=== PATIENT | male | born 1940 | race Caucasian/White ===

== ENCOUNTER 2020-08-13 08:04 | Observation (INO) | payer OTHER ==
--- OUTSIDE RECORDS SUMMARY | 2020-08-13 08:17 | XMS REPORT | Summary of Care ---
:1940 Author Organization [facility] Address [address] [place] [address] Care Team Providers Name Role Phone MD Louis Primary Care Provider Reason for Visit Reason Comments Refill Request Encounter Details Date Type Department Care Team Description 05/22/2020 Refill [facility] Family Medicine Luis Wilkerson MD Refill Request - [place] [address] [facility] [place] [address] [place] [address] [phone] Allergies Active Allergy Reactions Severity Noted Date Comments Adhesive Rash 07/23/2015 Codeine Unknown - See comments 07/23/2015 Gabapentin Shortness of Breath Medium 06/11/2018 Sulfamethoxazole Hives, Rash Medium 07/23/2015 documented as of this encounter (statuses as of 05/25/2020) Medications Medication Sig Dispensed Refills Start Date End Date Status DABIGATRAN ETEXILATE Take by mouth. 0 Active MESYLATE (PRADAXA ORAL) metoprolol tartrate Take 1 tablet by 90 tablet 1 09/06/2016 Active (LOPRESSOR) 100 mg mouth daily. tablet Additional Information Patient taking differently: 100 mg Oral BID, Reported on 10/18/2017 1:57 PM benzonatate (TESSALON Take 1 capsule 20 capsule 0 10/18/2017 Active PERLES) 100 mg by mouth 3 capsuleIndications: (three) times Bacterial URI daily. baclofen 10 mg tablet Take 10 mg by 0 Active mouth 2 (two) times daily. FUROSEMIDE ORAL Take 10 mg by 0 Active mouth daily. B INFANTIS/B ANI/B HAMLET/B Take by mouth. 0 Active BIFID (PROBIOTIC 4X ORAL) GLUCOSAM/GLUC Take by mouth. 0 Active FRAGA/IB-KBN-V-GLUC (GLUCOSAMINE COMPLEX ORAL) cimetidine (TAGAMET HB) Take 200 mg by 0 Active 200 mg tablet mouth 4 (four) times daily. digoxin 125 mcg tablet Take by mouth 2 0 Active (two) times daily. doxycycline 100 mg tablet Take 1 tablet by 20 tablet 0 018 Active mouth 2 (two) times daily. TRAMADOL 50 mg tablet TAKE 1 TABLET BY 30 tablet 0 09/17/2018 Active MOUTH EVERY 6 HOURS NEEDED FOR PAIN BD ULTRA FINE LANCETS 33 Use as directed 50 Each 2 9 Active gauge MiscIndications: for once a day Type 2 diabetes mellitus insulin with complication, injections. unspecified whether usp insulin use Insulin [place]myer, Use as directed, 100 Each 1 01/17/2019 Active Disposable, (PEN NEEDLE) once daily with 31 gauge x 5/16" Ndle Victoza, DX:E11.9 atorvastatin 10 mg Take 1 tablet by 30 tablet 5 06/02/2019 Active tabletIndications: mouth at Hyperlipidemia, bedtime. unspecified hyperlipidemia type ACCU-CHEK BASHIR PLUS TEST USE 2 TIMES A 150 Strip 3 06/19/2019 Active STRP strip DAY to monitor blood glucose for ICD code of E11.9 ACCU-CHEK BASHIR CONNECT Use as directed 1 Each 0 09/10/2019 Active METER Misc for twice a day blood glucose monitoring for ICD E11.9 Type 2 VENTOLIN HFA 90 TAKE 2 PUFFS BY 18 Inhaler 2 03/10/2020 Active mcg/actuation inhaler MOUTH EVERY 6 HOURS NEEDED FOR WHEEZE OR FOR SHORTNESS OF BREATH liraglutide (VICTOZA INJECT 1.8 MG 27 Syringe 0 04/19/2020 Active 3-CLARA) 0.6 mg/0.1 mL (18 UNDER THE SKIN mg/3 mL) injection ONCE DAILY EVERY MORNING FEBUXOSTAT 40 mg tablet TAKE 1 TABLET BY 90 tablet 0 0 Active MOUTH EVERY DAY IN THE MORNING GLIMEPIRIDE 1 mg TAKE 1 TABLET BY 30 tablet 1 05/07/2020 Active tabletIndications: Type 2 MOUTH EVERY DAY diabetes mellitus without complication, without long-term current use of insulin ATORVASTATIN 40 mg TAKE 1 TABLET BY 90 tablet 0 05/25/2020 Active tabletIndications: MOUTH EVERYDAY Peripheral vascular AT BEDTIME disease, unspecified, Neuropathic pain ATORVASTATIN 40 mg TAKE 1 TABLET BY 90 tablet 0 02/25/2020 tabletIndications: MOUTH EVERYDAY 2019 Peripheral vascular AT BEDTIME disease, unspecified, Neuropathic pain documented as of this encounter (statuses as of 05/25/2020) Active Problems Problem Noted Date Critical lower limb ischemia 03/05/2018 Pain of right lower extremity 02/26/2018 Overview: Added automatically from request for iron quick [id number] Elevated brain natriuretic peptide (BNP) level 017 Elevated liver enzymes 11/13/2016 Hyperlipidemia 11/18/2015 Essential hypertension 11/18/2015 IBS (irritable bowel syndrome) 11/18/2015 Hyperplasia of prostate 11/18/2015 Diabetes 11/18/2015 Atrial fibrillation 11/18/2015 documented as of this encounter (statuses as of 05/25/2020) Immunizations Name Administration Dates Next Due Influenza Virus Vaccine 05/30/2019 TDAP 10/23/2016 Zoster(Zostavax)(Shingles) 05/24/2019 documented as of this encounter Social History Tobacco Use Types Packs/Day Years Used Date Former Smoker Cigarettes 2 15 Quit: 11/18/18 90 Smokeless Tobacco: Never Used Comments: unsure how many years he smoke d Alcohol Use Drinks/Week oz/Week Comments Yes 5 Glasses of wine 5.0 Sex Assigned at Date Recorded Not on file documented as of this encounter Last Filed Vital Signs Not on filedocumented in this encounter Plan of Treatment Health Maintenance Due Date Last Done Comments EYE EXAM 02/26/1950 URINE MICROALBUMIN 02/26/1950 Medicare Wellness Visit 02/26/2005 PNEUMOCOCCAL VACCINES 65+ (1 of 1 02/26/2005 - PPSV23) Zoster Recombinant Vaccine 07/19/2019 05/24/2019 (SHINGRIX) (2 of 3) HgA1C 11/28/2019 05/28/2019, 04/30/2018, 02/07/2017, Additional history exists CREATININE (SERUM) 05/28/2020 05/28/2019, 01/31/2019, 04/30/2018, Additional history exists Depression Screening 05/28/2020 05/28/2019 FOOT EXAM 05/28/2020 05/28/2019, 05/28/2019 LDL-C 05/28/2020 05/28/2019, 10/23/2016, 02/29/2016 INFLUENZA VACCINE (#1) 2020 05/30/2019 DTaP,Tdap,and Td Vaccines (2 - Td) 10/23/2026 10/23/2016 documented as of this encounter Implants Implanted Type Area Strapper And Buffer Device Shelf Model / Identifier Expiration Serial / Lot Date [id number] Innova Vascular Stent STENT Right: [place] INNOVA VASCULAR / Implanted: Qty: 1 on 03/05/2018 by Ruy Goodman MD at [facility] [employer] H [id number] / [id number] Innova Vascular Stent STENT Right: [place] INNOVA VASCULAR / Implanted: Qty: 1 on 03/05/2018 by Ruy Goodman MD at [facility] [employer] H [id number] / [id number] Innova Vascular Stent STENT Right: [place] INNOVA VASCULAR / Implanted: Qty: 1 on 03/05/2018 by Ruy Goodman MD at [facility] [employer] H [id number] / [id number] Innova Vascular Stent STENT Right: [place] INNOVA VASCULAR / Implanted: Qty: 1 on 03/05/2018 by Ruy Goodman MD at [facility] [employer] H [id number] / [id number] Innova Vascular Stent STENT Right: [place] INNOVA VASCULAR / Implanted: Qty: 1 on 03/05/2018 by Ruy Goodman MD at [facility] [employer] H [id number] / [id number] Angio Se[employer] [id number] 0134 / Implanted: Qty: 1 on 03/05/2018 by Ruy Goodman MD at [facility] 0 / 0 Stent Innova Vascular Self Expanding Sys tem [id number] [employer] [place] Scientific #[id number] - S0 Right: [place] [id number] / Implanted: Qty: 1 on 03/05/2018 by Ruy Goodman MD at [facility] [employer] 0 / [id number] documented as of this encounter Results Not on filedocumented in this encounter Visit Diagnoses Diagnosis Peripheral vascular disease, unspecified Neuropathic pain Neuralgia, neuritis, and radiculitis, un specified documented in this encounter Insurance Payer Benefit Plan / Subscriber ID Effective Dates Phone Addre ss Type Group HUMANA - HUMANA [id number] 2013-[facility] MANAGED MEDICARE ERS t PPO MEDICARE documented as of this encounter
--- OUTSIDE RECORDS SUMMARY | 2020-08-13 08:17 | XMS REPORT | Summary of Care ---
:1940 Author Organization [facility] Address [address] [place] [address] Care Team Providers Name Role Phone MD Louis Primary Care Provider Reason for Visit Reason Comments Refill Request Encounter Details Date Type Department Care Team Description 06/01/2020 Refill [facility] Family Medicine Luis Wilkerson MD Refill Request - [place] [address] [facility] [place] [address] [place] [address] [phone] Allergies Active Allergy Reactions Severity Noted Date Comments Adhesive Rash 07/23/2015 Codeine Unknown - See comments 07/23/2015 Gabapentin Shortness of Breath Medium 06/11/2018 Sulfamethoxazole Hives, Rash Medium 07/23/2015 documented as of this encounter (statuses as of 06/01/2020) Medications Medication Sig Dispensed Refills Start Date End Date Status DABIGATRAN ETEXILATE Take by mouth. 0 Active MESYLATE (PRADAXA ORAL) metoprolol tartrate Take 1 tablet by 90 tablet 1 09/06/2016 Active (LOPRESSOR) 100 mg mouth daily. tablet Additional Information Patient taking differently: 100 mg Oral BID, Reported on 10/18/2017 1:57 PM benzonatate (TESSALON PERLES) Take 1 capsule by 20 capsule 0 0 10/18/2017 Active 100 mg capsuleIndications: mouth 3 (three) times Bacterial URI daily. baclofen 10 mg tablet Take 10 mg by mouth 2 0 Active (two) times daily. FUROSEMIDE ORAL Take 10 mg by mouth 0 Active daily. B INFANTIS/B ANI/B HAMLET/B BIFID Take by mouth. 0 Active (PROBIOTIC 4X ORAL) GLUCOSAM/GLUC FRAGA/YE-KYT-L-GLUC Take by mouth. 0 Active (GLUCOSAMINE COMPLEX ORAL) cimetidine (TAGAMET HB) 200 mg Take 200 mg by mouth 0 Active tablet 4 (four) times daily. digoxin 125 mcg tablet Take by mouth 2 0 Active (two) times daily. doxycycline 100 mg tablet Take 1 tablet by 20 tablet 0 018 Active mouth 2 (two) times daily. TRAMADOL 50 mg tablet TAKE 1 TABLET BY 30 tablet 0 09/17/2018 Active MOUTH EVERY 6 HOURS NEEDED FOR PAIN BD ULTRA FINE LANCETS 33 gauge Use as directed for 50 Each 2 01/16/2019 Active MiscIndications: Type 2 once a day insulin diabetes mellitus with injections. complication, unspecified whether detention insulin use Insulin [place], Disposable, Use as directed, once 100 Each 1 01/17/2019 Active (PEN NEEDLE) 31 gauge x 5/16" daily with Jose Willis DX:E11.9 atorvastatin 10 mg Take 1 tablet by 30 tablet 5 06/02/2019 Active tabletIndications: mouth at bedtime. Hyperlipidemia, unspecified hyperlipidemia type ACCU-CHEK BASHIR CONNECT METER Use as directed for 1 Each 0 09/10/2019 Active Misc twice a day blood glucose monitoring for ICD E11.9 Type 2 VENTOLIN HFA 90 mcg/actuation TAKE 2 PUFFS BY MOUTH 18 Inhaler 2 03/10/2020 Active inhaler EVERY 6 HOURS NEEDED FOR WHEEZE OR FOR SHORTNESS OF BREATH liraglutide (VICTOZA 3-CLARA) 0.6 INJECT 1.8 MG UNDER 27 Syringe 0 04/19/2020 Active mg/0.1 mL (18 mg/3 mL) THE SKIN ONCE DAILY injection EVERY MORNING FEBUXOSTAT 40 mg tablet TAKE 1 TABLET BY 90 tablet 0 0 Active MOUTH EVERY DAY IN THE MORNING GLIMEPIRIDE 1 mg TAKE 1 TABLET BY 30 tablet 1 05/07/2020 Active tabletIndications: Type 2 MOUTH EVERY DAY diabetes mellitus without complication, without long-term current use of insulin ATORVASTATIN 40 mg TAKE 1 TABLET BY 90 tablet 0 05/25/2020 Active tabletIndications: Peripheral MOUTH EVERYDAY AT vascular disease, unspecified, BEDTIME Neuropathic pain ACCU-CHEK BASHIR PLUS TEST STRP USE 2 TIMES A DAY TO 200 Strip 3 05/31/2020 Active strip MONITOR BLOOD GLUCOSE FOR ICD CODE OF E11.9 documented as of this encounter (statuses as of 06/01/2020) Active Problems Problem Noted Date Critical lower limb ischemia 03/05/2018 Pain of right lower extremity 02/26/2018 Overview: Added automatically from request for iron quick [id number] Elevated brain natriuretic peptide (BNP) level 017 Elevated liver enzymes 11/13/2016 Hyperlipidemia 11/18/2015 Essential hypertension 11/18/2015 IBS (irritable bowel syndrome) 11/18/2015 Hyperplasia of prostate 11/18/2015 Diabetes 11/18/2015 Atrial fibrillation 11/18/2015 documented as of this encounter (statuses as of 06/01/2020) Immunizations Name Administration Dates Next Due Influenza [...] Comments EYE EXAM 02/26/1950 URINE MICROALBUMIN 02/26/1950 Depression Screening 1952 Medicare Wellness Visit 02/26/2005 PNEUMOCOCCAL VACCINES 65+ (1 of 1 02/26/2005 - PPSV23) Zoster Recombinant Vaccine 07/19/2019 05/24/2019 (SHINGRIX) (2 of 3) HgA1C 11/28/2019 05/28/2019, 04/30/2018, 02/07/2017, Additional history exists CREATININE (SERUM) 05/28/2020 05/28/2019, 01/31/2019, 04/30/2018, Additional history exists FOOT EXAM 05/28/2020 05/28/2019, 05/28/2019 LDL-C 05/28/2020 05/28/2019, 10/23/2016, 02/29/2016 INFLUENZA VACCINE (#1) 2020 05/30/2019 DTaP,Tdap,and Td Vaccines (2 - Td) 10/23/2026 10/23/2016 documented as of this encounter Implants Implanted Type Area General Machine Operator Device Shelf Model / Identifier Expiration Serial / Lot Date [id number] Innova Vascular Stent STENT Right: [place] INNOVA VASCULAR / Implanted: Qty: 1 on 03/05/2018 by Ruy Goodman MD at [facility] [employer] H [id number] / [id number] Innova Vascular Stent STENT Right: [place] INNOVA VASCULAR / Implanted: Qty: 1 on 03/05/2018 by Ruy Goodman MD at [facility] [employer] H [id number] / [id number] Innova Vascular Stent STENT Right: [place] INNOVA VASCULAR / Implanted: Qty: 1 on 03/05/2018 by Ruy Goodman MD at [facility] [employer] H [id number] / [id number] Innova Vascular Stent STENT Right: [place] INNOVA VASCULAR / Implanted: Qty: 1 on 03/05/2018 by Ruy Goodman MD at [facility] [employer] H [id number] / [id number] Innova Vascular Stent STENT Right: [place] INNOVA VASCULAR / Implanted: Qty: 1 on 03/05/2018 by Ruy Goodman MD at [facility] [employer] H [id number] / [id number] Angio Se[address] [employer] C61 0134 / Implanted: Qty: 1 on 03/05/2018 by Ruy Goodman MD at [facility] 0 / 0 Stent Innova Vascular Self Expanding Sys tem [id number] [place] [employer] #[id number] - S0 Right: [place] [id number] / Implanted: Qty: 1 on 03/05/2018 by Ruy Goodman MD at [facility] [employer] 0 / [id number] documented as of this encounter Results Not on filedocumented in this encounter Visit Diagnoses Diagnosis Type 2 diabetes mellitus without complic ation, without long-term current use of insulin documented in this encounter Insurance Payer Benefit Plan / Subscriber ID Effective Dates Phone Addre ss Type Group HUMANA - HUMANA [id number] [facility] MANAGED MEDICARE ERS t O MEDICARE documented as of this encounter
--- OUTSIDE RECORDS SUMMARY | 2020-08-13 08:17 | XMS REPORT | Continuity of Care Document ---
:1940 Author Organization [facility] t Address [address] [place] [address] Care Team Providers Name Role Phone Louis JANG Attending Clinician Doctor Unassigned, Name Attending Clinician Unavailable Benji JOY Attending Clinician Unavailable Kiet ARELLANO Attending Clinician Problems This patient has no known problems. Allergies, Adverse Reactions, Alerts This patient has no known allergies or adverse reactions. Medications This patient has no known medications. Procedures This patient has no known procedures. Encounters Start End Encounter Admission Attending Care Care Encounter Source Date/Time Date/Time Type Type Clinicians Facility Department ID 2020-08-03 2020-08-03 Refill Louis [facility] [id number] 23 00:00:00 00:00:00 [facility] [id number] [place] [id number] Professio [phone] nal [address] One 2020-08-01 2020-08-01 Refaudrey Myers [facility] [id number] 00:00:00 00:00:00 [facility] [id number] [place] [id number] Professio [phone] nal [address] One 2020-07-08 2020-07-08 Refaudrey Myers [facility] 1.2.840.114 [id number] 00:00:00 00:00:00 [facility] [id number] [place] [id number] Professio [phone] nal 044 [address] One 2020-06-25 2020-06-25 Orders Doctor FUNK 1.2.840.114 [id number] 00:00:00 00:00:00 Only Unassigned, [place] [id number] [place] [facility] [id number] [id number] 2020-06-01 2020-06-01 Natalie Myers [facility] 1.2.840.114 [id number] 00:00:00 00:00:00 [facility] [id number] [place] [id number] Professio [phone] [place] [address] [address] 2020-05-30 2020-05-30 Natalie Myers [facility] 1.2.840.114 [id number] 00:00:00 00:00:00 [facility] [id number] [place] [id number] Professio [phone] nal [facility] Office Building One 2020-05-22 2020-05-22 [facility] 1.2.840.114 [id number] 00:00:00 00:00:00 [facility] [id number] [place] [id number] Professio [phone] nal [facility] [address] One 2020-05-07 2020-05-07 Natalie Myers, [facility] 1.2.840.114 [id number] 25 00:00:00 00:00:00 [facility] [id number] [place] [id number] Professio [phone] nal [facility] Office [address] One 2020-04-19 2020-04-19 Natalie Myers, [facility] 1.2.840.114 [id number] 00:00:00 00:00:00 [facility] [id number] [place] [id number] Professio [phone] [place] [address] [address] One 2020-03-18 2020-03-18 Natalie Myers [facility] 1.2.840.114 [id number] 22 00:00:00 00:00:00 [facility] [id number] [place] [id number] Professio [phone] nal [facility] Office Building One 2020-03-10 2020-03-10 Natalie Myers, [facility] 1.2.840.114 [id number] 05 00:00:00 00:00:00 [facility] [id number] [place] [id number] Professio [phone] [place] [address] [address] 2020-02-25 2020-02-25 Natalie Myers [facility] 1.2.840.114 [id number] 00:00:00 00:00:00 [facility] [id number] [place] [id number] Professio [phone] [place] [address] [address] One 2020-02-23 2020-02-23 Natalie Myers [facility] 1.2.840.114 [id number] 00:00:00 00:00:00 [facility] [id number] [place] [id number] Professio [phone] [place] [address] [address] One 2020-01-28 2020-01-28 Natalie Myers, [facility] 1.2.840.114 [id number] 00:00:00 00:00:00 [facility] [id number] [place] [id number] Professio [phone] [place] [address] [address] One 2019-12-30 2019-12-30 Natalie Myers, [facility] 1.2.840.114 [id number] 78 00:00:00 00:00:00 [facility] [id number] [place] [id number] Professio [phone] [place] [address] [address] One 2019-12-21 2019-12-21 Natalie Myers, [facility] 1.2.840.114 [id number] 25 00:00:00 00:00:00 [facility] [id number] [place] [id number] Professio [phone] [place] [address] [address] One 2019-12-11 2019-12-11 Orders Doctor GOOD 1.2.840.114 [id number] 00:00:00 00:00:00 Only Unassigned, [place] [id number] [place] [facility] 4.2.7.2.686 [id number] [id number] 2019-12-08 2019-12-08 Rashel Myers [facility] 1.2.875.102 [id number] 00:00:00 00:00:00 [facility] [id number] [place] [id number] Professio [phone] nal 044 Office [address] One 2019-12-02 2019-12-02 [facility] 1.2.840.114 [id number] 00:00:00 00:00:00 [facility] [id number] [place] [id number] Professio [phone] nal 044 Office [address] One 2019-11-10 2019-11-10 [facility] 1.2.840.114 [id number] 18 00:00:00 00:00:00 [facility] [id number] [place] [id number] Professio [phone] nal 044 Office [address] One 2019-11-06 2019-11-06 Orders Doctor GOOD 1.2.840.114 [id number] 00:00:00 00:00:00 Only Unassigned, TOY 350.1.13.10 [place] [facility] 4.2.7.2.686 [phone] [id number] 2019-10-24 2019-10-24 Orders Doctor GOOD 1.2.840.114 [id number] 00:00:00 00:00:00 Only Unassigned, TOY 350.1.13.10 [place] [facility] 4.2.7.2.686 [id number] [id number] 2019-10-09 2019-10-09 Orders Doctor GOOD 1.2.840.114 [id number] 00:00:00 00:00:00 Only Unassigned, TOY 350.1.13.10 [place] [facility] 4.2.7.2.686 [id number] [id number] 2019-06-19 2019-06-19 Refaudrey Myers [facility] 1.2.840.114 [id number] 20 00:00:00 00:00:00 [facility] [id number] [place] 4.2.7.2.686 Professio [phone] [place] [address] Office [address] One 2019-06-14 2019-06-14 Nurse GOOD [place] 1.2.840.114 [id number] 00:00:00 00:00:00 Triage Elizabeth YEAGER 350.1.13.10 [facility] 4.2.7.2.686 [id number] [id number] 2019-06-14 2019-06-14 [facility] 1.2.840.114 [id number] 00:00:00 00:00:00 [facility] [id number] [place] [id number] Professio [phone] [place] [address] Office [address] One 2019-06-11 2019-06-11 [facility] 1.2.840.114 [id number] 17 00:00:00 00:00:00 [facility] [id number] [place] [id number] Professio [phone] [place] [address] Office [address] One 2019-06-03 2019-06-03 [facility] 1.2.021.775 [id number] 11:15:00 23:59:00 Encounter Anu [place] 350.1.13.10 [place] 4.2.7.2.686 [place] [id number] [id number] 2019-06-03 2019-06-03 Office [facility] 1.2.840.114 [id number] 10:13:51 10:45:51 Visit [facility] [id number] [place] 4.2.7.2.686 [facility] [phone] [place] [address] [address] One 2019-06-03 2019-06-03 Orders Doctor GOOD 1.2.840.114 [id number] 00:00:00 00:00:00 Only Unassigned, TOY 350.1.13.10 [place] [facility] 4.2.7.2.686 [id number] [id number] 2019-06-02 2019-06-02 [facility]phone [facility] [id number] 00:00:00 00:00:00 [facility] [id number] [place] [id number] Professio [phone] nal 044 Office Building One 2019-05-28 2019-05-29 Office Louis [facility] 1.2.840.114 [id number] 12:23:17 08:18:02 Visit [facility] [id number] [place] [id number] Professio [phone] nal 044 Office Building One 2019-05-29 2019-05-29 Refill Louis [facility] 1.2.840.114 [id number] 00:00:00 00:00:00 [facility] [id number] [place] [id number] Professio [phone] [place] [address] Office [address] One Results This patient has no known results.
--- OUTSIDE RECORDS SUMMARY | 2020-08-13 08:17 | XMS REPORT | Summary of Care ---
:1940 Author Organization [facility] Address [address] [place] [address] Care Team Providers Name Role Phone MD Louis Primary Care Provider Reason for Visit Reason Comments Refill Request Encounter Details Date Type Department Care Team Description 05/30/2020 Refill [facility] Family Medicine Luis Wilkerson MD Refill Request - [place] [address] [facility] [place] [address] [place] [address] [phone] Allergies Active Allergy Reactions Severity Noted Date Comments Adhesive Rash 07/23/2015 Codeine Unknown - See comments 07/23/2015 Gabapentin Shortness of Breath Medium 06/11/2018 Sulfamethoxazole Hives, Rash Medium 07/23/2015 documented as of this encounter (statuses as of 05/31/2020) Medications Medication Sig Dispensed Refills Start Date [...] ORAL) GLUCOSAM/GLUC Take by mouth. 0 Active FRAGA/BE-NQZ-Y-GLUC (GLUCOSAMINE COMPLEX ORAL) cimetidine (TAGAMET HB) Take [...] mellitus insulin with complication, injections. unspecified whether detention insulin use Insulin [place], Use as directed, 100 Each 1 01/17/2019 Active Disposable, (PEN NEEDLE) once daily with 31 gauge x 5/16" Ndle Victoza, DX:E11.9 atorvastatin 10 mg Take 1 tablet by 30 tablet 5 06/02/2019 Active tabletIndications: mouth at Hyperlipidemia, bedtime. unspecified hyperlipidemia type ACCU-CHEK BASHIR CONNECT Use as directed 1 [...] vascular AT BEDTIME disease, unspecified, Neuropathic pain ACCU-CHEK BASHIR PLUS TEST USE 2 TIMES A 200 Strip 3 05/31/2020 Active STRP strip DAY TO MONITOR BLOOD GLUCOSE FOR ICD CODE OF E11.9 ACCU-CHEK BASHIR PLUS TEST USE 2 TIMES A 150 Strip 3 06/19/2019 STRP strip DAY to monitor 2019 blood glucose for ICD code of E11.9 documented as of this encounter (statuses as of 05/31/2020) Active Problems Problem Noted Date Critical lower limb ischemia 03/05/2018 Pain of right lower extremity 02/26/2018 Overview: Added automatically from request for iron quick [id number] Elevated brain natriuretic peptide (BNP) level 017 Elevated liver enzymes 11/13/2016 Hyperlipidemia 11/18/2015 Essential hypertension 11/18/2015 IBS (irritable bowel syndrome) 11/18/2015 Hyperplasia of prostate 11/18/2015 Diabetes 11/18/2015 Atrial fibrillation 11/18/2015 documented as of this encounter (statuses as of 05/31/2020) Immunizations Name Administration Dates Next Due Influenza [...] of this encounter Implants Implanted Type Area Instructional Manager Device Shelf Model / Identifier Expiration Serial / Lot Date [id number] [employer] Stent STENT Right: [place] INNOVA VASCULAR / Implanted: Qty: 1 on 03/05/2018 by Ruy Goodman MD at [facility] [employer] H [id number] / [id number] [employer] Stent STENT Right: [place] INNOVA VASCULAR / Implanted: Qty: 1 on 03/05/2018 by Ruy Goodman MD at [facility] [employer] H [id number] / [id number] [employer] Stent STENT Right: [place] INNOVA VASCULAR / Implanted: Qty: 1 on 03/05/2018 by Ruy Goodman MD at [facility] [employer] H [id number] / [id number] [employer] Stent STENT Right: [place] INNOVA VASCULAR / Implanted: Qty: 1 on 03/05/2018 by Ruy Goodman MD at [facility] [employer] H [id number] / [id number] [employer] Stent STENT Right: [place] INNOVA VASCULAR / Implanted: Qty: 1 on 03/05/2018 by Ruy Goodman MD at [facility] [employer] H [id number] / [id number] Angio Seal [employer] C61 0134 / Implanted: Qty: 1 on 03/05/2018 by Ruy Goodman MD at [facility] 0 / 0 Stent Innova Vascular Self Expanding Sys tem [id number] [place] Scientific #[id number] - S0 Right: [place] [id number] / Implanted: Qty: 1 on 03/05/2018 by Ruy Goodman MD at [facility] [employer] 0 / [id number] documented as of this encounter Results Not on filedocumented in this encounter Insurance Payer Benefit Plan / Subscriber ID Effective Dates Phone Addre ss Type Group HUMANA - HUMANA [id number] 2013-[facility] Adv MANAGED MEDICARE ERS t PPO MEDICARE documented as of this encounter
--- OUTSIDE RECORDS SUMMARY | 2020-08-13 08:18 | XMS REPORT | Summary of Care ---
:1940 Author Organization [facility] Address [address] [place] [address] Care Team Providers Name Role Phone MD Louis Primary Care Provider Reason for Visit Reason Comments Refill Request Encounter Details Date Type Department Care Team Description 07/08/2020 Refill [facility] Family Medicine Luis Wilkerson MD Refill Request - [place] [address] [facility] [place] [address] [place] [address] [phone] Allergies Active Allergy Reactions Severity Noted Date Comments Adhesive Rash 07/23/2015 Codeine Unknown - See comments 07/23/2015 Gabapentin Shortness of Breath Medium 06/11/2018 Sulfamethoxazole Hives, Rash Medium 07/23/2015 documented as of this encounter (statuses as of 07/08/2020) Medications Medication Sig Dispensed Refills Start Date [...] ORAL) GLUCOSAM/GLUC Take by mouth. 0 Active FRAGA/FI-NNR-J-GLUC (GLUCOSAMINE COMPLEX ORAL) cimetidine (TAGAMET HB) Take [...] mellitus insulin with complication, injections. unspecified whether prison insulin use Insulin [place], Use as directed, 100 Each 1 01/17/2019 [...] Active MOUTH EVERY DAY IN THE MORNING ATORVASTATIN 40 mg TAKE 1 TABLET BY 90 tablet 0 05/25/2020 Active tabletIndications: MOUTH EVERYDAY Peripheral vascular AT BEDTIME disease, unspecified, Neuropathic pain ACCU-CHEK BASHIR PLUS TEST USE 2 TIMES A 200 Strip 3 05/31/2020 Active STRP strip DAY TO MONITOR BLOOD GLUCOSE FOR ICD CODE OF E11.9 GLIMEPIRIDE 1 mg TAKE 1 TABLET BY 30 tablet 0 07/08/2020 Active tabletIndications: Type 2 MOUTH EVERY DAY diabetes mellitus without complication, without long-term current use of insulin GLIMEPIRIDE 1 mg TAKE 1 TABLET BY 30 tablet 1 05/07/202007/08 tabletIndications: Type 2 MOUTH EVERY DAY 2019 diabetes mellitus without complication, without long-term current use of insulin documented as of this encounter (statuses as of 07/08/2020) Active Problems Problem Noted Date Critical lower limb ischemia 03/05/2018 Pain of right lower extremity 02/26/2018 Overview: Added automatically from request for iron quick [id number] Elevated brain natriuretic peptide (BNP) level 017 Elevated liver enzymes 11/13/2016 Hyperlipidemia 11/18/2015 Essential hypertension 11/18/2015 IBS (irritable bowel syndrome) 11/18/2015 Hyperplasia of prostate 11/18/2015 Diabetes 11/18/2015 Atrial fibrillation 11/18/2015 documented as of this encounter (statuses as of 07/08/2020) Immunizations Name Administration Dates Next Due Influenza [...] of this encounter Implants Implanted Type Area Header Set Up Operator Device Shelf Model / Identifier Expiration Serial / Lot Date [id number] [employer] V[employer] Stent STENT Right: [place] INNOVA VASCULAR / Implanted: Qty: 1 on 03/05/2018 by Ruy Goodman MD at [facility] [employer] H [id number] / [id number] [employer] Stent STENT Right: [place] INNOVA VASCULAR / Implanted: Qty: 1 on 03/05/2018 by Ruy Goodman MD at [facility] [employer] H [id number] / [id number] [employer] V[employer] Stent STENT Right: [place] INNOVA VASCULAR / Implanted: Qty: 1 on 03/05/2018 by Ruy Goodman MD at [facility] [employer] H [id number] / [id number] [employer] V[employer] Stent STENT Right: [place] INNOVA VASCULAR / Implanted: Qty: 1 on 03/05/2018 by Ruy Goodman MD at [facility] [employer] H [id number] / [id number] [employer] V[employer] Stent STENT Right: [place] INNOVA VASCULAR / Implanted: Qty: 1 on 03/05/2018 by Ruy Goodman MD at [facility] [employer] H [id number] / [id number] Angio Seal [employer] C61 0134 / Implanted: Qty: 1 on 03/05/2018 by Ruy Goodman MD at [facility] 0 / 0 Stent [employer] V[employer] Self Expanding Sys tem [id number] [place] Scientific #[id number] - S0 Right: [place] [id number] / Implanted: Qty: 1 on 03/05/2018 by Ruy Goodman MD at [facility] [employer] 0 / [id number] documented as of this encounter Results Not on filedocumented in this encounter Visit Diagnoses Diagnosis Type 2 diabetes mellitus without complic ation, without long-term current use of insulin documented in this encounter Insurance Payer Benefit Plan / Subscriber ID Effective Dates Phone Addre ss Type Group HUMANA - HUMANA [id number] 2013-[facility] MANAGED MEDICARE ERS t O MEDICARE documented as of this encounter
--- OUTSIDE RECORDS SUMMARY | 2020-08-13 08:18 | XMS REPORT | Summary of Care ---
:1940 Author Organization [facility] Address [address] [place] [address] Care Team Providers Name Role Phone MD Louis Primary Care Provider Reason for Visit Reason Comments Refill Request Encounter Details Date Type Department Care Team Description 08/01/2020 Refill [facility] Family Medicine Luis Wilkerson MD Refill Request - [place] [address] 136 [employer] [facility] [employer] [facility] [place] [address] [place] [address] [phone] Allergies Active Allergy Reactions Severity Noted Date Comments Adhesive Rash 07/23/2015 Codeine Unknown - See comments 07/23/2015 Gabapentin Shortness of Breath Medium 06/11/2018 Sulfamethoxazole Hives, Rash Medium 07/23/2015 documented as of this encounter (statuses as of 08/02/2020) Medications Medication Sig Dispensed Refills Start Date [...] mouth. 0 Active (PROBIOTIC 4X ORAL) GLUCOSAM/GLUC FRAGA/GE-IIR-C-GLUC Take by mouth. 0 Active (GLUCOSAMINE COMPLEX ORAL) cimetidine (TAGAMET HB) 200 mg Take 200 mg by mouth 0 Active tablet 4 (four) times daily. digoxin 125 mcg tablet Take by mouth 2 0 Active (two) times daily. doxycycline 100 mg tablet Take 1 tablet by 20 tablet 0 02/06/ 018 Active mouth 2 (two) times daily. TRAMADOL 50 mg tablet TAKE 1 TABLET BY 30 tablet 0 09/17/2018 Active MOUTH EVERY 6 HOURS NEEDED FOR PAIN BD ULTRA FINE LANCETS 33 gauge Use as directed for 50 Each 2 01/16/2019 Active MiscIndications: Type 2 once a day insulin diabetes mellitus with injections. complication, unspecified whether custodial insulin use Insulin [place], Disposable, Use as directed, once 100 Each [...] as of this encounter (statuses as of 08/02/2020) Active Problems Problem Noted Date Critical lower limb ischemia 03/05/2018 Pain of right lower extremity 02/26/2018 Overview: Added automatically from request for iron quick [id number] Elevated brain natriuretic peptide (BNP) level 017 Elevated liver enzymes 11/13/2016 Hyperlipidemia 11/18/2015 Essential hypertension 11/18/2015 IBS (irritable bowel syndrome) 11/18/2015 Hyperplasia of prostate 11/18/2015 Diabetes 11/18/2015 Atrial fibrillation 11/18/2015 documented as of this encounter (statuses as of 08/02/2020) Immunizations Name Administration Dates Next Due Influenza [...] of this encounter Implants Implanted Type Area Creel Clerk Device Shelf Model / Identifier Expiration Serial / Lot Date [id number] [employer] V[employer] Stent STENT Right: [place] INNOVA VASCULAR / Implanted: Qty: 1 on 03/05/2018 by Ruy Goodman MD at [facility] [employer] H [id number] / [id number] [employer] V[employer] Stent STENT Right: [place] INNOVA VASCULAR / Implanted: Qty: 1 on 03/05/2018 by Ruy Goodman MD at [facility] [employer] H [id number] / [id number] [employer] V[employer] Stent STENT Right: [place] INNOVA VASCULAR / Implanted: Qty: 1 on 03/05/2018 by Ruy Goodman MD at [facility] [employer] H [id number] / [id number] Inn[employer] Vascular Stent STENT Right: [place] INNOVA VASCULAR / Implanted: Qty: 1 on 03/05/2018 by Ruy Goodman MD at [facility] [employer] H [id number] / [id number] Inn[employer] V[employer] Stent STENT Right: [place] INNOVA VASCULAR / Implanted: Qty: 1 on 03/05/2018 by Ruy Goodman MD at [facility] [employer] H [id number] / [id number] Angio Seal [employer] C61 0134 / Implanted: Qty: 1 on 03/05/2018 by Ruy Goodman MD at [facility] 0 / 0 Stent [employer] Vascular Self Expanding Sys tem [id number] [place] Scientific #[id number] - S0 Right: [place] [id number] / Implanted: Qty: 1 on 03/05/2018 by Ruy Goodman MD at [facility] [employer] 0 / [id number] documented as of this encounter Results Not on filedocumented in this encounter Insurance Payer Benefit Plan / Subscriber ID Effective Dates Phone Addre ss Type Group HUMANA - HUMANA [id number] [facility] ERS t PPO MEDICARE documented as of this encounter
--- OUTSIDE RECORDS SUMMARY | 2020-08-13 08:18 | XMS REPORT | Summary of Care ---
:1940 Author Organization [facility] Address [address] [place] [address] Care Team Providers Name Role Phone MD Louis Primary Care Provider Encounter Details Date Type Department Care Team Description 06/25/2020 Orders Only [facility] Doctor Unassigned, No [address] [facility] [place] [address] [address] [place] [id number] Allergies Active Allergy Reactions Severity Noted Date Comments Adhesive Rash 07/23/2015 Codeine Unknown - See comments 07/23/2015 Gabapentin Shortness of Breath Medium 06/11/2018 Sulfamethoxazole Hives, Rash Medium 07/23/2015 documented as of this encounter (statuses as of 07/12/2020) Medications Medication Sig Dispensed Refills Start Date [...] mouth. 0 Active (PROBIOTIC 4X ORAL) GLUCOSAM/GLUC FRAGA/DT-EUG-H-GLUC Take by mouth. 0 Active (GLUCOSAMINE COMPLEX [...] diabetes mellitus with injections. complication, unspecified whether usp insulin use Insulin [place], Disposable, Use as directed, once 100 Each [...] as of this encounter (statuses as of 07/12/2020) Active Problems Problem Noted Date Critical lower limb ischemia 03/05/2018 Pain of right lower extremity 02/26/2018 Overview: Added automatically from request for iron quick [id number] Elevated brain natriuretic peptide (BNP) level 017 Elevated liver enzymes 11/13/2016 Hyperlipidemia 11/18/2015 Essential hypertension 11/18/2015 IBS (irritable bowel syndrome) 11/18/2015 Hyperplasia of prostate 11/18/2015 Diabetes 11/18/2015 Atrial fibrillation 11/18/2015 documented as of this encounter (statuses as of 07/12/2020) Immunizations Name Administration Dates Next Due Influenza [...] of this encounter Implants Implanted Type Area Commercial Lines Assistant Device Shelf Model / Identifier Expiration Serial / Lot Date [id number] Innova Vascular Stent STENT Right: [place] INNOVA VASCULAR / Implanted: Qty: 1 on 03/05/2018 by Ruy Goodman MD at [facility] [employer] H [id number] / [id number] Innova Vascular Stent STENT Right: [place] INNOVA VASCULAR / Implanted: Qty: 1 on 03/05/2018 by Ruy Goodman MD at [facility] [employer] H [id number] / [id number] Innova Vascular Stent STENT Right: [place] INNOVA VASCULAR / Implanted: Qty: 1 on 03/05/2018 by Ruy Goodman MD at [facility] [employer] H [id number] / [id number] Innova Vascular Stent STENT Right: [place] INNOVA VASCULAR / Implanted: Qty: 1 on 03/05/2018 by Ruy Goodman MD at [facility] [employer] H [id number] / [id number] Innova Vascular Stent STENT Right: [place] INNOVA VASCULAR / Implanted: Qty: 1 on 03/05/2018 by Ruy Goodman MD at [facility] [employer] H [id number] / [id number] Angio Seal [employer] C61 0134 / Implanted: Qty: 1 on 03/05/2018 by Ruy Goodman MD at [facility] 0 / 0 Stent Innova Vascular Self Expanding Sys tem [id number] [place] Scientific #86198-57578 - S0 Right: [place] [id number] / Implanted: Qty: 1 on 03/05/2018 by Ruy Goodman MD at [facility] [employer] 0 / [id number] documented as of this encounter Procedures Procedure Name Priority Date/Time Associated Diagnosis Comme nts REFERRAL- Routine 06/25/2020 12:01 AM CDT REQUEST/RESPONSE documented in this encounter Results Not on filedocumented in this encounter Insurance Payer Benefit Plan / Subscriber ID Effective Dates Phone Addre ss Type Group HUMANA - HUMANA [id number] 2013-[facility] MANAGED MEDICARE ERS t O MEDICARE documented as of this encounter
--- OUTSIDE RECORDS SUMMARY | 2020-08-13 08:19 | XMS REPORT | Summary of Care ---
:1940 Author Organization [facility] Address [address] [place] [address] Care Team Providers Name Role Phone MD Louis Primary Care Provider Reason for Visit Reason Comments Refill Request Encounter Details Date Type Department Care Team Description 08/03/2020 Refill [facility] Family Medicine Luis Wilkerson MD Refill Request - [place] [address] [facility] [place] [address] [place] [address] [phone] Allergies Active Allergy Reactions Severity Noted Date Comments Adhesive Rash 07/23/2015 Codeine Unknown - See comments 07/23/2015 Gabapentin Shortness of Breath Medium 06/11/2018 Sulfamethoxazole Hives, Rash Medium 07/23/2015 documented as of this encounter (statuses as of 08/03/2020) Medications Medication Sig Dispensed Refills Start Date [...] ORAL) GLUCOSAM/GLUC Take by mouth. 0 Active FRAGA/LW-QGV-N-GLUC (GLUCOSAMINE COMPLEX ORAL) cimetidine (TAGAMET HB) Take [...] mellitus insulin with complication, injections. unspecified whether residential insulin use Insulin [place], Use as directed, 100 Each 1 01/17/2019 [...] AT BEDTIME disease, unspecified, Neuropathic pain ACCU-CHEK ABSHIR PLUS TEST USE 2 TIMES A 200 Strip 3 05/31/2020 Active STRP strip DAY TO MONITOR BLOOD GLUCOSE FOR ICD CODE OF E11.9 GLIMEPIRIDE 1 mg TAKE 1 TABLET BY 30 tablet 0 08/03/2020 Active tabletIndications: Type 2 MOUTH EVERY DAY diabetes mellitus without complication, without long-term current use of insulin GLIMEPIRIDE 1 mg TAKE 1 TABLET BY 30 tablet 0 07/08/202008/03 tabletIndications: Type 2 MOUTH EVERY DAY 2019 diabetes mellitus without complication, without long-term current use of insulin documented as of this encounter (statuses as of 08/03/2020) Active Problems Problem Noted Date Critical lower limb ischemia 03/05/2018 Pain of right lower extremity 02/26/2018 Overview: Added automatically from request for iron quick [id number] Elevated brain natriuretic peptide (BNP) level 017 Elevated liver enzymes 11/13/2016 Hyperlipidemia 11/18/2015 Essential hypertension 11/18/2015 IBS (irritable bowel syndrome) 11/18/2015 Hyperplasia of prostate 11/18/2015 Diabetes 11/18/2015 Atrial fibrillation 11/18/2015 documented as of this encounter (statuses as of 08/03/2020) Immunizations Name Administration Dates Next Due Influenza [...] of this encounter Implants Implanted Type Area Food Trades Assistants Device Shelf Model / Identifier Expiration Serial / Lot Date [id number] [employer] V[employer] Stent STENT Right: [place] INNOVA VASCULAR / Implanted: Qty: 1 on 03/05/2018 by Ruy Goodman MD at [facility] [employer] H [id number] / [id number] Inn[employer] V[employer] Stent STENT Right: [place] INNOVA VASCULAR / Implanted: Qty: 1 on 03/05/2018 by Ruy Goodman MD at [facility] [employer] H [id number] / [id number] Innova Vascular Stent STENT Right: [place] INNOVA VASCULAR / Implanted: Qty: 1 on 03/05/2018 by Ruy Goodman MD at [facility] [employer] H [id number] / [id number] Innova Vascular Stent STENT Right: [place] INNOVA VASCULAR / Implanted: Qty: 1 on 03/05/2018 by Ruy Goodman MD at [facility] [employer] H [id number] / [id number] [employer] V[employer] Stent STENT Right: [place] INNOVA VASCULAR / Implanted: Qty: 1 on 03/05/2018 by Ruy Goodman MD at [facility] [employer] H [id number] / [id number] Angio Seal [employer] C61 0134 / Implanted: Qty: 1 on 03/05/2018 by Ruy Goodman MD at [facility] 0 / 0 Stent Innova Vascular Self Expanding Sys tem [id number] [place] Scientific #79945-49286 - S0 Right: [place] [id number] / Implanted: Qty: 1 on 03/05/2018 by Ruy Goodman MD at [facility] [employer] 0 / [id number] documented as of this encounter Results Not on filedocumented in this encounter Visit Diagnoses Diagnosis Type 2 diabetes mellitus without complic ation, without long-term current use of insulin documented in this encounter Insurance Payer Benefit Plan / Subscriber ID Effective Dates Phone Addre ss Type Group HUMANA - HUMANA [id number] 2013-[facility] MANAGED MEDICARE ERS t O MEDICARE documented as of this encounter
[2020-08-13] MEDS ORDERED: METOPROLOL TARTRATE 5 MG/5 ML INJ IV ONE (08:34)
[2020-08-13 08:50] LABS: Absolute Lymphocytes (CBC) 0.8 K/uL (0.7-4.9); Basophils % 0.5 % (0-1.3); Hematocrit 44.6 % (39.6-49.0); Lymphocytes % 18.3 % (15.3-44.8); MPV 8.7 fL (7.6-11.3)
[2020-08-13 08:52] LABS: Protime INR 1.3
[2020-08-13 09:08] LABS: ALT/SGPT 44 U/L (12-78); AST/SGOT 39 U/L (15-37); Albumin 3.4 g/dL (3.4-5.0); Alkaline Phosphatase 70 U/L (45-117); BUN Blood Urea Nitrogen 37 mg/dL (7-18); Bicarbonate 29 mmol/L (21-32); Bilirubin Direct 0.5 mg/dL (0-0.2); Bilirubin Total 1.2 mg/dL (0.2-1.0); Glucose Level 104 mg/dL (74-106); NT PRO-BNP 2117 pg/mL (<450); Protein, Total 7.3 g/dL (6.4-8.2); Sodium Level 142 mmol/L (136-145); Troponin (Emerg Dept Use Only) < 0.02 ng/mL (0.0-0.045)
--- NOTE | 2020-08-13 09:09 | RAD REPORT ---
EXAM DESCRIPTION: RAD - Chest Single View - 08/13/2020 8:41 am CLINICAL HISTORY: DYSPNEA, cough, shortness of breath COMPARISON: Two view chest July 2014 TECHNIQUE: AP portable chest image was obtained 08/13/2020 8:41 am . FINDINGS: No focal mass or consolidations seen. Interstitial pattern is increased slightly from the prior study even when adjusting for current portable and prior PA technique. Heart size is minimally enlarged but not substantially different from the comparison. Vasculature is similar or slightly incr eased. Peribronchial thickness is similar to comparison. Trachea is midline. No measurable pleural ef fusion and no pneumothorax. No acute bony abnormality seen. No acute aortic findings suspected. IMPRESSION: No focal mass or consolidation. Heart, vasculature and lung markings are minimally prominent but not grossly different when adjusting for technique differences. A minimal cardiac decompensation or volume overload is possible. Follow-up can be obtained as warrant ed.
[2020-08-13 10:09] LABS: Blood Morphology Comment NOTED (NOT SEEN); White Blood Cell Scan OK (OK)
[2020-08-13 10:10] LABS: Anisocytosis 1+; Macrocytosis 1+; Platelet Estimate ADEQ
--- NOTE | 2020-08-13 11:40 | ER ---
Nurse's Notes [facility] Name: Vinayak Street Age: 80 yrs Sex: Male : 1940 Arrival Date: 08/13/2020 Time: 08:10 Bed 8 Private MD: Diagnosis: Atrial fibrillation and flutter;Renal Insufficiency Presentation: 08/13 08:05 Chief complaint: EMS states: SOB and cough since this morning, denies fever. jl7 Coronavirus screen: Client denies travel out of the [place] in the last 14 days. At this time, the client does not indicate any symptoms associated with coronavirus-19. Ebola Screen: No symptoms or risks identified at this time. 08:05 Method Of Arrival: EMS: [facility] 7 08:05 Initial Sepsis Screen: Does the patient meet any 2 criteria? No. Patient's initial jl7 sepsis screen is negative. Does the patient have a suspected source of infection? No. Patient's initial sepsis screen is negative. Risk Assessment: Do you want to hurt yourself or someone else? Patient reports no desire to harm self or others. Onset of symptoms was August 13, 2020. Care prior to arrival: None. Transition of care: patient was not received from another setting of care. 08:05 Acuity: MARY ANNE 3 jl7 Triage Assessment: 08:18 General: Appears in no apparent distress. uncomfortable, Behavior is calm, cooperative, jl7 appropriate for age. Pain: Denies pain. Neuro: Level of Consciousness is awake, alert, obeys commands, Oriented to person, place, time, situation. Cardiovascular: Patient's skin is warm and dry. Rhythm is. Respiratory: Reports shortness of breath cough that is productive, since this morning Onset: The symptoms/episode began/occurred this morning, the patient has mild shortness of breath. GI: Reports diarrhea, flatulence. Derm: Skin is pink, warm \T\ dry. Historical: - Allergies: 08:18 No Known Allergies; jl7 - PMHx: 08:18 Atrial Fib; COPD; Diabetes - NIDDM; CHF; jl7 - PSHx: 08:18 prostate surgery; heart stent; jl7 - Immunization history:: Adult Immunizations up to date. - Social history:: Smoking status: Patient/guardian denies using tobacco, the patient reports quitting approximately 25 years ago. Screenin:13 Abuse screen: Denies threats or abuse. Nutritional screening: No deficits noted. em Tuberculosis screening: No symptoms or risk factors identified. Fall Risk None identified. Assessment: 08:40 General: See triage assessment. jl7 08:40 Reassessment: Pt placed on O2 via NC at 2 lpm. jl7 10:30 Reassessment: NC removed, Room O2 at 98 %, will continue to monitor. jl7 Vital Signs: 08:05 BP 124 / 81; Pulse 132; Resp 22 S; Temp 97.9(TE); Pulse Ox 87% on R/A; Weight 81.65 kg jl7 (R); Height 5 ft. 8 in. (172.72 cm) (R); Pain 0/10; 08:43 BP 108 / 82; Pulse 127; Resp 19 S; Pulse Ox 99% on 2 lpm NC; jl7 09:00 BP 109 / 88; Pulse 92; Resp 19 S; Pulse Ox 100% on 2 lpm NC; jl7 10:05 BP 114 / 71; Pulse 122; Resp 19 S; Pulse Ox 99% on 2 lpm NC; jl7 11:03 BP 103 / 62; Pulse 102; Resp 17 S; Pulse Ox 99% on R/A; jl7 12:43 BP 139 / 86; Pulse 104; Resp 17 S; Pulse Ox 100% on R/A; Pain 0/10; em 14:08 BP 147 / 97; Pulse 102; Resp 18; Pulse Ox 99% on R/A; mt 08:05 Body Mass Index 27.37 (81.65 kg, 172.72 cm) jl7 ED Course: 08:10 Patient arrived in ED. jl7 08:13 Patient has correct armband on for positive identification. Placed in gown. Bed in low em position. Call light in reach. Side rails up X2. supply planner on. Pulse ox on. NIBP on. 08:15 Devonte Garg MD is Attending Physician. kdr 08:16 Triage completed. jl7 08:18 Arm band placed on right wrist. jl7 08:36 Initial lab(s) drawn, by me, sent to lab. Inserted saline lock: 20 gauge in right hand, jl7 using aseptic technique. Blood collected. 08:41 XRAY Chest (1 view) In Process Unspecified. EDMS 08:43 Warm blanket given. jl7 09:00 Ana María Pimentel, RN is Primary Nurse. jl7 10:30 No provider procedures requiring assistance completed. jl7 11:35 Jose Shabazz MD is Hospitalizing Provider. kdr 13:19 Awaiting bed assignment. jl7 15:41 Patient admitted, IV remains in place. intact, No redness/swelling at site. jl7 Administered Medications: 08:30 Drug: Lopressor 5 mg Route: IVP; Site: right hand; jl7 08:45 Drug: Lopressor 5 mg Route: IVP; Site: right hand; jl7 09:10 Drug: Lopressor 5 mg Route: IVP; Site: right hand; jl7 10:07 Follow up: Response: No adverse reaction; Cardiac rhythm is unchanged jl7 13:05 Drug: LaNOXin 0.5 mg Route: IVP; Site: right hand; jl7 13:06 Drug: Betapace 80 mg Route: PO; jl7 Outcome: 11:39 Decision to Hospitalize by Provider. kdr 15:41 Admitted to Tele accompanied by tech, via stretcher, room 208, with chart. jl7 15:41 Condition: stable 15:41 Discharge instructions given to patient, Instructed on the need for admit, Demonstrated understanding of instructions. 16:08 Patient left the ED. iw Signatures: Dispatcher [employer] Devonte Skaggs MD MD kdr Munoz, Edgar, RN Laquita Randall, Ana María Villegas RN, Jessica Ponce RN az
--- NOTE | 2020-08-13 11:40 | EDPHYS ---
Physician Documentation [facility] Name: Vinayak Street Age: 80 yrs Sex: Male : 1940 Arrival Date: 08/13/2020 Time: 08:10 Bed 8 Private MD: ED Physician Devonte Garg HPI: 08/13 13:23 This 80 yrs old Male presents to ER via EMS with complaints of Shortness Of kdr Breath. 13:23 The patient has shortness of breath at rest, with light activity. Onset: The kdr symptoms/episode began/occurred suddenly, this morning. Duration: The symptoms are continuous, and are steadily getting worse. The patient's shortness of breath is aggravated by light activity. Associated signs and symptoms: Pertinent positives:. Severity of symptoms: At their worst the symptoms were mild in the emergency department the symptoms are unchanged. The patient has experienced similar episodes in the past, a few times. The patient has not recently seen a physician. Historical: - Allergies: 08:18 No Known Allergies; jl7 - PMHx: 08:18 Atrial Fib; COPD; Diabetes - NIDDM; CHF; jl7 - PSHx: 08:18 prostate surgery; heart stent; jl7 - Immunization history:: Adult Immunizations up to date. - Social history:: Smoking status: Patient/guardian denies using tobacco, the patient reports quitting approximately 25 years ago. ROS: 13:23 Constitutional: Negative for fever, chills, and weight loss, Eyes: Negative for injury, kdr pain, redness, and discharge, ENT: Negative for injury, pain, and discharge, Neck: Negative for injury, pain, and swelling, Abdomen/GI: Negative for abdominal pain, nausea, vomiting, diarrhea, and constipation, Back: Negative for injury and pain, : Negative for injury, bleeding, discharge, and swelling, MS/Extremity: Negative for injury and deformity, Skin: Negative for injury, rash, and discoloration, Neuro: Negative for headache, weakness, numbness, tingling, and seizure activity. Psych: Negative for depression, anxiety, suicide ideation, homicidal ideation, and hallucinations, Allergy/Immunology: Negative for hives, rash, and allergies, Endocrine: Negative for neck swelling, polydipsia, polyuria, polyphagia, and marked weight changes, Hematologic/Lymphatic: Negative for swollen nodes, abnormal bleeding, and unusual bruising. 13:23 Cardiovascular: Positive for edema, Negative for chest pain, orthopnea, palpitations, paroxysmal nocturnal dyspnea. 13:23 Respiratory: Positive for cough, shortness of breath, at rest. Negative for hemoptysis, orthopnea. Exam: 08:18 ECG was reviewed by the Attending Physician. kdr 13:19 Constitutional: This is a well developed, well nourished patient who is awake, alert, kdr and in no acute distress. Head/Face: Normocephalic, atraumatic. Eyes: Pupils equal round and reactive to light, extra-ocular motions intact. Lids and lashes normal. Conjunctiva and sclera are non-icteric and not injected. Cornea within normal limits. Periorbital areas with no swelling, redness, or edema. Neck: Trachea midline, no thyromegaly or masses palpated, and no cervical lymphadenopathy. Supple, full range of motion without nuchal rigidity, or vertebral point tenderness. No Meningismus. Chest/axilla: Normal chest wall appearance and motion. Nontender with no deformity. No lesions are appreciated. Abdomen/GI: Soft, non-tender, with normal bowel sounds. No distension or tympany. No guarding or rebound. No evidence of tenderness throughout. Back: No spinal tenderness. No costovertebral tenderness. Full range of motion. Skin: Warm, dry with normal turgor. Normal color with no rashes, no lesions, and no evidence of cellulitis. MS/ Extremity: Pulses equal, no cyanosis. Neurovascular intact. Full, normal range of motion. Neuro: Awake and alert, GCS 15, oriented to person, place, time, and situation. Cranial nerves II-XII grossly intact. Motor strength 5/5 in all extremities. Sensory grossly intact. Cerebellar exam normal. Normal gait. Psych: Awake, alert, with orientation to person, place and time. Behavior, mood, and affect are within normal limits. 13:19 Cardiovascular: Rate: tachycardic, Rhythm: irregularly irregular, Pulses: no pulse deficits are appreciated, Heart sounds: normal, Edema: 2+ edema to level of left midcalf, left ankle, right midcalf and right ankle, JVD: Vital Signs: 08:05 BP 124 / 81; Pulse 132; Resp 22 S; Temp 97.9(TE); Pulse Ox 87% on R/A; Weight 81.65 kg jl7 (R); Height 5 ft. 8 in. (172.72 cm) (R); Pain 0/10; 08:43 BP 108 / 82; Pulse 127; Resp 19 S; Pulse Ox 99% on 2 lpm NC; jl7 09:00 BP 109 / 88; Pulse 92; Resp 19 S; Pulse Ox 100% on 2 lpm NC; jl7 10:05 BP 114 / 71; Pulse 122; Resp 19 S; Pulse Ox 99% on 2 lpm NC; jl7 11:03 BP 103 / 62; Pulse 102; Resp 17 S; Pulse Ox 99% on R/A; jl7 12:43 BP 139 / 86; Pulse 104; Resp 17 S; Pulse Ox 100% on R/A; Pain 0/10; em 14:08 BP 147 / 97; Pulse 102; Resp 18; Pulse Ox 99% on R/A; mt 08:05 Body Mass Index 27.37 (81.65 kg, 172.72 cm) 7 MDM: 11:39 Patient medically screened. kdr 13:23 Data reviewed: vital signs, nurses notes, lab test result(s), radiologic studies. kdr Counseling: I had a detailed discussion with the patient and/or guardian regarding: the historical points, exam findings, and any diagnostic results supporting the discharge/admit diagnosis, lab results, radiology results, the need for further work-up and treatment in the hospital. 08/13 08:16 Order name: Basic Metabolic Panel; Complete Time: 10:00 kdr 08/13 08:16 Order name: CBC with Diff; Complete Time: 11:03 kdr 08/13 08:16 Order name: LFT's; Complete Time: 10:00 kdr 08/13 08:16 Order name: Magnesium; Complete Time: 10:00 kdr 08/13 08:16 Order name: NT PRO-BNP; Complete Time: 10:00 kdr 08/13 08:16 Order name: PT-INR; Complete Time: 10:00 kdr 08/13 08:16 Order name: Troponin (emerg Dept Use Only); Complete Time: 10:00 kdr 08/13 08:16 Order name: XRAY Chest (1 view); Complete Time: 10:00 kdr 08/13 08:52 Order name: CBC Smear Scan; Complete Time: 11:03 EDMS 08/13 10:54 Order name: SARS-COV-2 RT PCR; Complete Time: 11:03 EDMS 08/13 12:46 Order name: Echo with Doppler EDMS 08/13 08:16 Order name: EKG; Complete Time: 08:17 kdr 08/13 08:16 Order name: Cardiac monitoring; Complete Time: 08:16 kdr 08/13 08:16 Order name: EKG - Nurse/Tech; Complete Time: 08:16 kdr 08/13 08:16 Order name: IV Saline Lock; Complete Time: 08:36 kdr 08/13 08:16 Order name: Labs collected and sent; Complete Time: 08:36 kdr 08/13 08:16 Order name: O2 Per Protocol; Complete Time: 08:16 kdr 08/13 08:16 Order name: O2 Sat Monitoring; Complete Time: 08:16 kdr EC:18 Rate is 133 beats/min. Rhythm is irregularly irregular, A fib with No ectopy. QRS Skippers kdr is Normal. AK interval is normal. QRS interval is normal. QT interval is normal. Clinical impression: Atrial Fibrillation. Administered Medications: 08:30 Drug: Lopressor 5 mg Route: IVP; Site: right hand; jl7 08:45 Drug: Lopressor 5 mg Route: IVP; Site: right hand; jl7 09:10 Drug: Lopressor 5 mg Route: IVP; Site: right hand; jl7 10:07 Follow up: Response: No adverse reaction; Cardiac rhythm is unchanged jl7 13:05 Drug: LaNOXin 0.5 mg Route: IVP; Site: right hand; jl7 13:06 Drug: Betapace 80 mg Route: PO; jl7 Disposition: 08/13/20 11:39 Hospitalization ordered by Jose Shabazz for Observation. Preliminary diagnosis are Atrial fibrillation and flutter, Renal Insufficiency. - Bed requested for Telemetry/MedSurg (observation). - Status is Observation. iw - Condition is Fair. - Problem is new. - Symptoms have improved. Signatures: Dispatcher [employer] EDMS Devonte Garg MD MD kdr Laquita Meade RN RN iw Ana María Pimentel RN RN jl7 Corrections: (The following items were deleted from the chart) 09:39 09:19 CORONAVIRUS+MR.LAB.BRZ ordered. EDOR EDMS 14:26 11:39 Hospitalization Ordered by Jose Shabazz MD for Observation. Preliminary iw diagnosis is Atrial fibrillation and flutter; Renal Insufficiency. Bed requested for Telemetry/MedSurg (observation). Status is Observation. Condition is Fair. Problem is new. Symptoms have improved. kdr 16:08 14:26 08/13/2020 11:39 Hospitalization Ordered by Jose Shabazz MD for Observation. iw Preliminary diagnosis is Atrial fibrillation and flutter; Renal Insufficiency. Bed requested for Telemetry/MedSurg (observation). Status is Observation. Condition is Fair. Problem is new. Symptoms have improved. iw
--- NOTE | 2020-08-13 12:39 | P.HP ---
Certification for Inpatient Patient admitted to: Observation With expected LOS: <2 Midnights Practitioner: I am a practitioner with admitting privileges, knowledge of patient current condition, hospital course, and medical plan of care. Services: Services provided to patient in accordance with Admission requirements found in Title 42 Section 412.3 of the Code of Federal Regulations Patient History Date of Service: 08/13/20 Primary Care Provider: Dr. Myers Reason for admission: Afib with RVR, SANCHEZ History of Present Illness: 80yo male, PMH: paroxysmal Afib, COPD, DM2 (non-insulin dependent), CAD s/p stent, CHF, presents to ED due to shortness of breath. He states he woke up this morning "feeling choked" and couldn't catch his breath. He was able to call 911 and was noted to be in afib with RVR by EMS. He reports some mild SOB over the past few days, some sinus congestion, and feeling of generalized weakness. Although he provides plenty of detail, he is not aware of all the medications he currently takes. He reports a history of difficult to control afib due to side effects from increasing "one of the medications" and having to be on a lower dose. He has been taking an allergy pill recommended by his pharmacist for the past 1-2 weeks but is unsure of the name of the medication. Otherwise he has not been taking any other non-prescribed meds. In the ED, he was noted to be in afib with RVR in the 130s, with some temporary improvement after lopressor 5mg IV x3, but eventual return of Afib with RVR. He was initially 87% on RA, but improved to 98% without any other intervention. Workup revealed elevated Cr (2.07), elevated BNP (~2100), and CXR with no significant acute cardiopulmonary process. He reports history of b/l leg edema, but recently has been better/improved with his current lasix regimen. Allergies adhesive Allergy (Verified 07/24/14 09:50) Rash codeine Allergy (Verified 07/24/14 09:50) Shortness of breath Home Medications: Atorvastatin Calcium [Lipitor] 40 mg PO BEDTIME 07/24/14 Dabigatran Etexilate Mesylate [Pradaxa] 75 mg PO BID 07/24/14 Glimepiride [Amaryl] 1 mg PO DAILY WITH BREAKFAST 07/24/14 Liraglutide [Victoza 2-Estevan] 1.8 mg SQ DAILY WITH BREAKFAST 07/24/14 Albuterol Inhaler [Ventolin Inhaler] 2 puff IH Q6H PRN 08/13/20 Baclofen 10 mg PO BEDTIME 08/13/20 Febuxostat 40 mg PO DAILY 08/13/20 Furosemide [Lasix] 40 mg PO DAILY 08/13/20 Linaclotide [Linzess] 145 mcg PO DAILY 08/13/20 Losartan Potassium [Cozaar] 100 mg PO DAILY 08/13/20 - Past Medical/Surgical History -: DM2 - not on insulin therapy -: COPD -: CHF -: Afib -: CAD s/p stent -: coronary stenting - Family History Family History: Reviewed- Non-Contributory - Social History Smoking Status: Former smoker (quite >25yrs ago) Alcohol use: Yes Place of Residence: Home Review of Systems 10-point ROS is otherwise unremarkable Physical Examination - Physical Exam General: Alert, In no apparent distress, Oriented x3 HEENT: Sclerae nonicteric Neck: No LAD Respiratory: Clear to auscultation bilaterally, Normal air movement Cardiovascular: Edema (1+ b/l to knees), Irregular heart rate/rhythm (afib) Gastrointestinal: Soft and benign, Non-distended, No tenderness Musculoskeletal: No tenderness Integumentary: No rashes Neurological: Normal speech, Normal affect - Studies Laboratory Data (last 24 hrs) 08/13/20 08:36: PT 15.3 H, INR 1.30 08/13/20 08:36: WBC 4.5, Hgb 15.2, Hct 44.6, Plt Count 129 L 08/13/20 08:36: Sodium 142, Potassium 4.0, BUN 37 H, Creatinine 2.07 H, Glucose 104, Magnesium 2.0, Total Bilirubin 1.2 H, AST 39 H, ALT 44, Alkaline Phosphatase 70 Assessment and Plan - Advance Directives Does patient have a Living Will: No Does patient have a Durable POA for Healthcare: No Physician Review Additional Text: Afib with RVR ?SANCHEZ with possible CKD COPD DM2 (non-insulin dependent) CAD s/p stent CHF -unable to control with lopressor x 3 in ED -pt unsure of names of medications he takes, states he takes one medication for his heart rate twice a day -I called his pharmacy and was told he did not have a prescription for any BB or CCB, and only twice a day medication was pradaxa. -discussed case with cardiology - pt given 0.5mg IV digoxin and 80mg sotalol, continue with sotalol 80mg BID -pt reports no kidney disease history -last Cr in chart was from 2013: 1.41; unclear if baseline. -will check urine studies, renal u/s, consult nephrology. possibly from lasix usage, pt does not appear prerenal on exam -hold nephrotoxic meds -obtain home meds and resume as appropriate VTE: home pradaxa Code: full Dispo: anticipate dc home in 24-48hrs after rate control is achieved Time Spent Managing Pts Care (In Minutes): 55
[2020-08-13] MEDS ORDERED: SOTALOL HCL 80 MG TAB PO ONE (12:44)
[2020-08-13] MEDS ORDERED: DIGOXIN 0.25 MG/ML AMP IV ONE (12:44)
[2020-08-13] MEDS ORDERED: SOTALOL HCL 80 MG TAB ONE (13:11)
[2020-08-13] MEDS ORDERED: DIGOXIN 0.25 MG/ML AMP ONE (13:12)
[2020-08-13] MEDS: INSULIN -REGULAR HUMAN 50 UNIT/0.5 ML ML SQ SCH ×2 (16:35→20:51)
[2020-08-13 17:22] VITALS: BMI 27.3
--- NOTE | 2020-08-13 17:51 | EKG ---
Test Date: 2020-08-13 Test Time: 08:13:22 Beveller Operator: CRESCENCIO MEASUREMENT RESULTS: Intervals: Rate: 133 AK: QRSD: 80 QT: 314 QTc: 467 [place]: P: AK: QRS: 17 T: 255 INTERPRETIVE STATEMENTS: Atrial fibrillation with rapid ventricular response with premature ventricular or aberrantly conducted complexes Low voltage QRS Nonspecific ST and T wave abnormality, probably digitalis effect Abnormal ECG Compared to ECG 10/03/2005 23:37:00 Ventricular premature complex(es) now present Low QRS voltage now present Sinus bradycardia no longer present ST (T wave) deviation still present Electronically Signed On 08-13-20 17:49:58 CDT by Vincent Torres
[2020-08-13 18:32] LABS: Thyroid Stimulating Hormone 3.99 uIU/mL (0.360-3.740)
[2020-08-13] MEDS: DABIGATRAN 75 MG CAP PO SCH (20:51)
[2020-08-14] MEDS ORDERED: LORazepam 2 MG/ML VIAL IV ONE (00:54)
[2020-08-14] MEDS ORDERED: ALBUTEROL INHALER 60 PUFF/8 GM IH PRN (02:47)
[2020-08-14 05:27] LABS: Urine Appearance CLEAR; Urine Bilirubin NEGATIVE (NEG); Urine Blood NEGATIVE (NEG); Urine Color YELLOW; Urine Glucose NEGATIVE (NEG); Urine Protein NEGATIVE (NEG); Urine Specific Gravity 1.015 (1.005-1.030)
[2020-08-14 05:35] LABS: Urine Microscopic Reflex NO UMIC
[2020-08-14 06:02] LABS: UR PROTEIN 22 mg/dL (<11.9); UR SODIUM 29 mmol/L (27-287)
[2020-08-14 06:22] LABS: Absolute Lymphocytes (CBC) 0.8 K/uL (0.7-4.9); Basophils % 0.5 % (0-1.3); Hematocrit 44.3 % (39.6-49.0); Lymphocytes % 22.4 % (15.3-44.8); RBC Red Blood Cell Count 4.05 M/uL (4.33-5.43)
[2020-08-14] MEDS: SOTALOL HCL 80 MG TAB PO SCH ×2 (06:22→17:02)
[2020-08-14 06:33] LABS: Albumin 3.2 g/dL (3.4-5.0); Bilirubin Total 1.2 mg/dL (0.2-1.0); Magnesium 2.2 mg/dL (1.8-2.4); Potassium 3.9 mmol/L (3.5-5.1); Protein, Total 6.5 g/dL (6.4-8.2)
[2020-08-14] MEDS: INSULIN -REGULAR HUMAN 50 UNIT/0.5 ML ML SQ SCH ×5 (07:30→20:33)
[2020-08-14 08:53] VITALS: O2SAT 98
[2020-08-14] MEDS: FEBUXOSTAT 40 MG PO SCH (09:00)
[2020-08-14] MEDS: FUROSEMIDE 40 MG TABLET PO SCH (09:00)
[2020-08-14] MEDS ORDERED: POTASSIUM CL SA 10 MEQ TAB PO ONE (09:00)
[2020-08-14] MEDS: DABIGATRAN 75 MG CAP PO SCH ×2 (09:00→20:33)
--- NOTE | 2020-08-14 09:15 | P.PN ---
Subjective Date of Service: 08/14/20 Primary Care Provider: Dr. Myers Chief Complaint: Afib with RVR, SANCHEZ Subjective: Improving (feeling about back to his baseline, no palpitations, no chest pain, no SOB no acute events overnight) Physical Examination - Vital Signs Temperature: 97.3 F Blood Pressure: 155/81 Pulse: 93 Respirations: 16 Pulse Ox (%): 96 - Physical Exam General: Alert, In no apparent distress HEENT: Sclerae nonicteric Neck: Supple Respiratory: Clear to auscultation bilaterally Cardiovascular: Edema (trace pedal edema), Irregular heart rate/rhythm (afib, rates: 80-90s) Gastrointestinal: Soft and benign, Non-distended, No tenderness Musculoskeletal: No tenderness Integumentary: No rashes Neurological: Normal speech, Normal affect Assessment & Plan Physician Review Additional Text: Afib with RVR SANCHEZ with possible CKD COPD DM2 (non-insulin dependent) CAD s/p stent CHF -discussed case with cardiology - pt given 0.5mg IV digoxin and 80mg sotalol in ED, continue with sotalol 80mg BID -pt reports no kidney disease history, SANCHEZ on admission, improved overnight, possibly back to baseline, unclear -urine studies ordered, renal u/s, consult nephrology. FENa: 0.3%, pre-renal, possibly from mild heart failure, acutely worse due to afib with rvr -last Cr in chart was from 2014: 1.41; unclear if baseline. -holding home ARB in setting of SANCHEZ VTE: home pradaxa Code: full Dispo: possible dc home later today vs tomorrow if afib remains controlled, will need at least 3 doses of sotalol prior to dc per cardiology recommendations pending kidney workup as well Time Spent Managing Pts Care (In Minutes): 35
[2020-08-14] MEDS ORDERED: HOME MED 1 EA UNK (Losartan Potassium [Cozaar] 100 MG) PO SCH (09:30)
--- NOTE | 2020-08-14 16:10 | CON ---
Date of Consultation: 08/14/2020 Requesting Provider: DR. Jose Shabazz. Reason For Consultation: Renal insufficiency. History Of Present Illness: Mr. Street is an 80-year-old male with a history of hypertension, periph eral arterial disease with prior stenting, COPD, and atrial fibrillation, who presented to hospital w ith acute dyspnea. The patient was found to have atrial fibrillation with rapid ventricular response . He has been managed with rate control to which he has responded well. Our consultation was reques helen for renal insufficiency. The patient did have a creatinine of 2.07 on admission and historically the patient does not have any labs here in our system. Last creatinine was in 2013 and creatinine 1 .41. According to the patient, he does follow in the outpatient setting and had been t old in the past. The patient also has a history of BPH for which he was operated on and g reen light laser procedure by Dr. Lopez a few years ago. He states that he is not having any urinar y symptoms including retention or dribbling. He also states that he did not take any NSAIDs in the o utpatient setting and denies any recent iodinated contrast. He currently appears comfortable. Has no acute complaints. He denies any fevers, chills, chest pain , shortness of breath, nausea, vomiting, or diarrhea. Past Medical History: Again as per HPI and there is also reported history of congestive heart failur e. Family History: Noncontributory. Physical Examination: Vital Signs: Blood pressure 145/90, pulse is 89, temperature 97. General: No acute distress. Overweight. Heart: Irregularly irregular. No murmurs, rubs, gallops. Lungs: Diminished sounds as expected with COPD, but no obvious rhonchi or rales. Abdomen: Soft, nontender, nondistended. Extremities: Have 1+ edema below the level of the mid leg. There are some chronic venous stasis olimpia nges noted as well. Laboratory Data: Shows a sodium of 142, potassium 3.9, chloride 106, CO2 of 30, BUN 32, creatinine 1 .41 with a GFR of 48. Bilirubin was elevated at 1.2 and albumin was 3.2. CBC had shown hemoglobin a nd hematocrit of 14.4 and 44.3, and also had shown macrocytosis. UA is bland without any proteinuria . Microbiology data was reviewed. Current Medications: The patient's medications were reviewed. Of note, patient is on Lasix 40 mg p. o. daily. Also did require potassium supplementation x1. He is also continued on sotalol 80 mg p.o. b.i.d. at this time. Remainder of medications were noted. Impression: 1.Renal insufficiency, likely chronic kidney disease stage 3 on the background setting of diabetes a nd hypertension with possible new cardiorenal syndrome. 2.Atrial fibrillation with rapid ventricular response. 3.Hypertension. 4.Diabetes. 5.History of BPH, surgically corrected. Plan: Mr. Street' renal function is showing improvement. Based on historical labs, it appears that the patient is at his approximate baseline at this time. Of note, the patient is on sotalol and I wo uld recommend a potassium supplementation of 10 mEq daily upon discharge. I have counseled the patient on avoidance of NSAID and if possible iodinated contrast. I will order a bladder scan and if there is no significant retention, the patient can be discharged f rom renal perspective with close outpatient followup. Plan of care was discussed with Dr. Shabazz. /CLAUDY Voice ID: [id number] Report ID: [id number]
--- NOTE | 2020-08-14 16:58 | RAD REPORT ---
EXAM DESCRIPTION: US - Renal Ultrasound-Complete - 08/14/2020 4:01 pm CLINICAL HISTORY: . Acute renal insufficiency COMPARISON: None. FINDINGS: The right kidney measures 10 cm with a mildly increased echotexture. The left kidney measures 10 cm with a mildly increased echotexture. Mild renal cortical thinning Hydronephrosis is not seen. No gross abnormality of bladder IMPRESSION: Mild renal cortical thinning with mildly increased echotexture consistent with parenchym al disease.
--- NOTE | 2020-08-14 18:52 | CON ---
Date of Consultation: 08/13/2020 Reason For Consultation: Atrial fibrillation and congestive heart failure. History Of Present Illness: Mr. Street is an 80-year-old male, who came in with CHF, atrial fibrilla tion, rapid ventricular response. He is known to have a past history of CHF, atrial fibrillation, CO PD, diabetes, CAD, and status post stent. He came in with shortness of breath, PND, orthopnea, pedal edema, palpitations, but no syncope. Denied any fever or chills. Denied any cough. Past Medical History: As stated above. Allergies: NONE. Review of Systems: Negative. Social History: Negative. Family History: Negative. Medications: At home include Pradaxa, inhalers, Lipitor, Lasix, Amaryl, Victoza, and Cozaar. Physical Examination: Vital Signs: Blood pressure is 170/80. He was in atrial fibrillation when I saw him at a rate of 90 after he received sotalol and digoxin IV. HEENT: Negative. Neck: Supple with no bruit. Chest: Some rales at both bases. Cardiac: Atrial fibrillation. Abdomen: Benign. Extremities: Trace edema. Skin: Dry and intact. Neurologic: He was nonfocal. Pulses were present distally bilaterally. Diagnostic Data: EKG showed atrial fibrillation. Chest x-ray showed possible CHF. Impression And Plan: 1.Paroxysmal atrial fibrillation. The patient is taking Pradaxa. It is unknown whether he is takin g any beta blockers. Sotalol has been started 80 b.i.d. I would give him 3 dosages before he goes h ome. I will give digoxin IV push times x1 0.5 mg on an as-needed basis once a day only. Hopefully, he will convert. If not, his rate has been slowed down. After he goes home on the sotalol, if he re rajinder in atrial fibrillation for 3 weeks, we will do a direct current cardioversion. He should have an echocardiogram as an outpatient. Otherwise from my standpoint, he can go home. 2.Chronic obstructive pulmonary disease, on inhalers. 3.Coronary artery disease, status post percutaneous coronary intervention, stable. 4.Dyslipidemia, on Lipitor, well controlled. 5.Diabetes, on Amaryl and Victoza. 6.Hypertension, on Cozaar. 7.Chronic diastolic congestive heart failure, on Lasix. When he goes home, certainly his Lasix dose should be increased, his sotalol 80 b.i.d. should be continued, Pradaxa should be continued. I will see him in the office as an outpatient and I will make arrangements for an echocardiogram and as emma cervantes earlier, if he does not convert, we will do a direct current cardioversion in 3 weeks. JOSE Voice ID: [id number] Report ID: [id number]
[2020-08-14] MEDS ORDERED: ATORVASTATIN 40 MG TAB PO SCH (21:00)
[2020-08-14] MEDS ORDERED: BACLOFEN 10 MG TAB PO SCH (21:00)
[2020-08-15] MEDS: SOTALOL HCL 80 MG TAB PO SCH (05:10)
[2020-08-15 06:27] LABS: Potassium 4.2 mmol/L (3.5-5.1)
[2020-08-15 06:28] LABS: Magnesium 1.9 mg/dL (1.8-2.4); Phosphorus 2.8 mg/dL (2.5-4.9)
[2020-08-15] MEDS: INSULIN -REGULAR HUMAN 50 UNIT/0.5 ML ML SQ SCH (07:30)
[2020-08-15 08:25] VITALS: BP 114/69; TEMP 96.6
--- NOTE | 2020-08-15 08:34 | P.DS ---
Admission Date: 08/13/20 Discharge Date: 08/15/20 Primary Care Provider: Dr. Myers Disposition: ROUTINE DISCHARGE Discharge Condition: GOOD Reason for Admission: Afib with RVR, SANCHEZ Consultations: Cardiology - Brian Nephrology - Laura / Gianfranco Procedures: CXR (08/13): No focal mass or consolidation. Heart, vasculature, and lung markings are minimally prominent but not grossly different when adjusted for technique differences. Minimal cardiac decompensation volume overload is possible. Renal ultrasound (08/13): Mild renal cortical thinning with mildly increased echotexture consistent with parenchymal disease. Problem list Afib with RVR (h/o paroxysmal AFib) SANCHEZ with possible CKD COPD DM2 (non-insulin dependent) CAD s/p stent CHF, unknown type Brief History of Present Illness: 80yo male, PMH: paroxysmal Afib, COPD, DM2 (non-insulin dependent), CAD s/p stent, CHF, presented to the ED due to shortness of breath. Patient was found to be in AFib with RVR in the 130s. He was given Lopressor 5 mg x3 in the ED with initial improvement but return of RVR. Workup also revealed in a KI (creatinine: 2.07), elevated BNP (~ 2100). Hospital Course: For is AFib with RVR, Cardiology was consulted, patient was given 1 dose of digoxin and started on sotalol with eventual improvement of his heart rate and resolution of his shortness of breath. His hospitalization was prolonged due to continued elevated heart rate in the 120-130s in the evening of 08/14, but this eventually resolved with no further intervention. He is discharged home with Sotalol 80mg BID, KCL 10meq daily, and increased lasix from 40mg daily to 60mg daily. He is to f/u with Dr. Torres on at 8:30 For his SANCHEZ on CKD, nephrology was consulted. This improved with rate control and continued diuresis. The renal ultrasound was performed, results as above. He is to follow up with nephrology as an outpatient. Vital Signs/Physical Exam: Temp Pulse Resp BP Pulse Ox 96.6 F L 83 18 114/69 98 08/15/20 08:00 08/15/20 08:00 08/15/20 08:00 08/15/20 08:00 08/15/20 08:00 General: Alert, In no apparent distress HEENT: PERRLA, EOMI Respiratory: Clear to auscultation bilaterally, Normal air movement Cardiovascular: Edema (trace b/l edema), Irregular heart rate/rhythm (afib) Gastrointestinal: Soft and benign, Non-distended, No tenderness Musculoskeletal: No tenderness Integumentary: No rashes Neurological: Normal speech, Normal affect Laboratory Data at Discharge: WBC 3.4 K/uL (4.3-10.9) L D 08/14/20 05:31 Hgb 14.4 g/dL (13.6-17.9) 08/14/20 05:31 Hct 44.3 % (39.6-49.0) 08/14/20 05:31 Plt Count 107 K/uL (152-406) L 08/14/20 05:31 PT 15.3 SECONDS (9.5-12.5) H 08/13/20 08:36 INR 1.30 08/13/20 08:36 Sodium 144 mmol/L (136-145) 08/15/20 05:48 Potassium 4.2 mmol/L (3.5-5.1) 08/15/20 05:48 BUN 26 mg/dL (7-18) H 08/15/20 05:48 Creatinine 1.37 mg/dL (0.55-1.3) H 08/15/20 05:48 Glucose 118 mg/dL (74-106) H 08/15/20 05:48 Phosphorus 2.8 mg/dL (2.5-4.9) 08/15/20 05:48 Magnesium 1.9 mg/dL (1.8-2.4) 08/15/20 05:48 Total Bilirubin 1.2 mg/dL (0.2-1.0) H 08/14/20 05:31 AST 34 U/L (15-37) 08/14/20 05:31 ALT 36 U/L (12-78) 08/14/20 05:31 Alkaline Phosphatase 64 U/L (45-117) 08/14/20 05:31 Home Medications: RX: Atorvastatin Calcium [Lipitor*] 40 mg PO BEDTIME 07/24/14 RX: Dabigatran Etexilate Mesylate [Pradaxa*] 75 mg PO BID 07/24/14 RX: Glimepiride [Amaryl] 1 mg PO DAILY WITH BREAKFAST 07/24/14 RX: Liraglutide [Victoza 2-Estevan] 1.8 mg SQ DAILY WITH BREAKFAST 07/24/14 RX: Albuterol Inhaler [Ventolin Inhaler*] 2 puff IH Q6H PRN 08/13/20 RX: Baclofen 10 mg PO BEDTIME 08/13/20 RX: Febuxostat 40 mg PO DAILY 08/13/20 RX: Furosemide [Lasix*] 40 mg PO DAILY 08/13/20 RX: Linaclotide [Linzess] 145 mcg PO DAILY 08/13/20 RX: Losartan Potassium [Cozaar] 100 mg PO DAILY 08/13/20 RX: Sotalol HCl [Betapace*] 80 mg PO BID 30 Days #60 tab 08/14/20 RX: Furosemide [Lasix] 60 mg PO DAILY 30 Days #45 tablet 08/15/20 RX: Potassium Chloride [Klor-Con 10] 10 meq PO DAILY 30 Days #30 tablet.er 08/15/20 New Medications: RX: Sotalol HCl [Betapace*] 80 mg PO BID 30 Days #60 tab RX: Potassium Chloride [Klor-Con 10] 10 meq PO DAILY 30 Days #30 tablet.er RX: Furosemide [Lasix] 60 mg PO DAILY 30 Days #45 tablet Diet: ADA Activity: Ad jonnathan Followup: Vincent Torres MD [ACTIVE - CAN ADMIT] - 08/17/20 8:30 am (heart doctor- Sunday (08/17) at 8:30 am ) Billy Medel MD [ACTIVE - CAN ADMIT] - 1-2 Weeks (kidney doctor- call to schedule appointment ) Unknown,U [Primary Care Provider] - 1 Week (Primary care doctor- call to schedule an appointment ) Time spent managing pt's care (in minutes): 35
[2020-08-15] MEDS: FUROSEMIDE 40 MG TABLET PO SCH (08:36)
[2020-08-15] MEDS: DABIGATRAN 75 MG CAP PO SCH (08:37)
[2020-08-15] MEDS: FEBUXOSTAT 40 MG PO SCH (08:38)
--- NOTE | 2020-08-15 10:13 | EKG ---
Test Date: 2020-08-14 Test Time: 08:43:27 Glass Cleaning Machine Tender: ADARSH MEASUREMENT RESULTS: Intervals: Rate: 123 CT: 112 QRSD: 76 QT: 406 QTc: 581 [place]: P: CT: 112 QRS: 29 T: 200 INTERPRETIVE STATEMENTS: Sinus tachycardia with occasional premature ventricular complexes and fusion complexes Low voltage QRS Nonspecific ST and T wave abnormality Abnormal ECG Compared to ECG 08/13/2020 08:13:22 Fusion complex(es) now present Atrial fibrillation no longer present ST (T wave) deviation still present Electronically Signed On 08-15-20 10:10:23 STATEMENT DISTRIBUTION CLERK by Vincent Torres
--- NOTE | 2020-08-16 07:23 | ECHO ---
HEIGHT: 5 ft 8 in WEIGHT: 205 lb 3.2 oz DATE OF STUDY: 08/13/[address]: Jose Shabazz MD 2-DIMENSIONAL: YES M.MODE: YES DOPPLER: YES COLOR FLOW: YES TDS: PORTABLE: DEFINITY: BUBBLE STUDY: DIAGNOSIS: ATRIAL FIBRILLATION, CONGESTIVE HEART FAILURE CARDIAC HISTORY: CATHERIZATION: SURGERY: PROSTHETIC VALVE: PACEMAKER: MEASUREMENTS (cm) DIASTOLIC (NORMALS) SYSTOLIC (NORMALS) IVSd 1.2 (0.6-1.2) LA Diam 4.4 (1.9-4.0) LVEF 56% LVIDd 3.5 (3.5-5.7) LVIDs 2.5 (2.0-3.5) %FS 29% LVPWd 1.3 (0.6-1.2) Ao Diam (2.0-3.7) 2 DIMENSIONAL ASSESSMENT: RIGHT ATRIUM: NORMAL LEFT ATRIUM: DILATED RIGHT VENTRICLE: NORMAL LEFT VENTRICLE: NORMAL TRICUSPID VALVE: NORMAL MITRAL VALVE: NORMAL PULMONIC VALVE: NORMAL AORTIC VALVE: NORMAL PERICARDIAL EFFUSION: NONE AORTIC ROOT: NORMAL LEFT VENTRICULAR WALL MOTION: NORMAL DOPPLER/COLOR FLOW: NORMAL COMMENTS: NORMAL EJECTION FRACTION. NORMAL LEFT VENTRICULAR SIZE AND FUNCTION. ATRIAL FIBRILLATION. LEFT ATRIAL ENLARGEMENT. NO THROMBUS. TECHNOLOGIST: SHANTANU ZAMAN
== END 2020-08-15 09:40 | disposition home or self-care (01) ==
LOC: ER 08:04 → ERHOLD 12:45 → 2ND 15:44
PROVIDERS: ADMIT Hospitalist; ATTEND Hospitalist
DX: I48.0 Paroxysmal atrial fibrillation (principal); N17.9 Acute kidney failure, unspecified; J44.9 Chronic obstructive pulmonary disease, unspecified; E11.9 Type 2 diabetes mellitus without complications; I25.10 Atherosclerotic heart disease of native coronary artery without angina pectoris; Z95.5 Presence of coronary angioplasty implant and graft; Z20.828 Contact with and (suspected) exposure to other viral communicable diseases; R94.31 Abnormal electrocardiogram [ECG] [EKG]; Z79.84 Long term (current) use of oral hypoglycemic drugs; E78.5 Hyperlipidemia, unspecified; I11.0 Hypertensive heart disease with heart failure; I50.32 Chronic diastolic (congestive) heart failure; Z87.891 Personal history of nicotine dependence
CPT/HCPCS: 93005 ×2; 93306; 85025 ×2; 80048 ×2; 36415 ×2; 83735 ×3; 84100; 85610; 84300; 82947 ×7; 80076; 84443; 81003; 82570; 84484; 84439; 80053; 83880; 84156; 71045; 76770; 94760 ×3; 96375; 96374; 99285; U0003; J1160; G0378 ×4

== ENCOUNTER 2023-01-21 11:25 | Inpatient (IN) | payer OTHER ==
[2023-01-21] MEDS ORDERED: NA CHLORIDE 0.9% 500 ML ONE (12:10)
[2023-01-21 12:12] LABS: Absolute Lymphocytes (CBC) 0.5 K/uL (0.7-4.9); Hematocrit 36.6 % (39.6-49.0); Lymphocytes % 3.6 % (15.3-44.8); MCV 104.3 fL (80-100); MPV 7.4 fL (7.6-11.3)
[2023-01-21 12:14] LABS: Protime INR 3.15
[2023-01-21 12:30] LABS: Potassium 4.3 mEq/L (3.5-5.1); Troponin High Sensitivity 45.6 pg/mL (<58.9)
--- OUTSIDE RECORDS SUMMARY | 2023-01-21 12:31 | XMS REPORT | Continuity of Care Document ---
:[address] [facility] t Address [address] [place] [address] [place] [id number] Care Team Providers Name Role Phone Louis JANG, Luis Primary Care Physician GER STEIN Attending Clinician Unavailable GENA MÉNDEZ Attending Clinician Unavailable GENA MÉNDEZ Attending Clinician Unavailable [facility]mael [facility] Attending Clinician Ger Stein MD Attending Clinician PATRICIA GARCIA Attending Clinician Unavailable Patricia Vásquez Attending Clinician Luis Dean MD Attending Clinician LUIS DEAN Attending Clinician Unavailable KORINA CRAWFORD Attending Clinician Unavailable Lorin Valencia Attending Clinician Korina Crawford MD Attending Clinician Doctor Unassigned, [place] Attending Clinician Unavailable Ashlee Moore MD Attending Clinician Kay Bradford RN Attending Clinician Unavailable Carlos JANG, Sergei Gage Attending Clinician [phone] Melecio Carrion MD Attending Clinician Sudarshan Gray MD Attending Clinician [phone] SUDARSHAN GRAY Attending Clinician Unavailable Jcarlos JANG, Gil Klein Attending Clinician Franco DO Cristopher Attending Clinician Tereso Fountain Attending Clinician TERESO ADRIAN Attending Clinician Unavailable TONY NORTON Attending Clinician Unavailable Nurse, Adc Pob Immunization Attending Clinician Unavailable Tony Norton DO Attending Clinician Lab, Ang - Db Attending Clinician Unavailable Lab, Adc Fam Pob I Attending Clinician Unavailable Nurse, [facility] Attending Clinician Unavailable NARENDRA BENNETT Attending Clinician Unavailable Benji JOY, Elizabeth Attending Clinician Unavailable Anu Cochran Attending Clinician KORINA CRAWFORD Admitting Clinician Unavailable Ty JANG, Korina Admitting Clinician Carlos JANG, Sergei Gage Admitting Clinician [phone] SERGEI ARELLANO Admitting Clinician Unavailable Payers Payer Name Policy Type Policy Number Effective Date Expiration Date S ource [facility] [id number] 2021 [facility] [place] 00:00:00 PPO [facility] [id number] 2020 GENERIC 00:00:00 Problems Condition Condition Condition Status Onset Resolution Last Treating Co mments Source Name Details Category Date Date Treatment Clinician Date Lipoma of Lipoma of Disease Active 2021-10 Overview: Univers scalp scalp 1-24 Formattin ity of 00:00: g of this [place] 00 note Medical might be Branch different from the original. Added automatic ally from request for surgery [id number] Critical Critical Disease Active Unive rs lower limb lower limb 5-22 it y of ischemia ischemia 00:00: [place] 00 Medical Branch Pain of Pain of Disease Active Overview: Univ ers right right 5-15 Formattin ity of lower lower 00:00: g of this [place] extremity extremity 00 note Medi josep might be Branch different from the original. Added automatic ally from request for surgery [id number] Elevated Elevated Disease Active 2016-10 Unive rs brain brain 0-03 ity of natriure[place]ure[place] c peptide c peptide 00 Medi [place]osep (BNP) (BNP) Branch level level Elevated Elevated Disease Active Unive rs liver liver 1-30 ity of enzymes enzymes 00:00: [place] [facility] Hyperlipid Hyperlipid Disease Active U nivers emia emia 2-04 ity of 00:00: [place] [facility] Essential Essential Disease Active Uni vers hypertensi hypertensi 2-04 it y of on on 00:00: [place] [facility] IBS IBS Disease Active Univers (irritable (irritable 2-04 it y of bowel bowel 00:00: [place] syndrome) syndrome) 00 [facility] Branch Hyperplasi Hyperplasi Disease Active U nivers a of a of 2-04 ity of prostate prostate 00:00: [place] [facility] Diabetes Diabetes Disease Active Unive rs 2-04 ity of 00:00: [place] [facility] Atrial Atrial Disease Active Univers fibrillati fibrillati 2-04 it y of on on 00:00: [place] [facility] Allergies, Adverse Reactions, Alerts Allergy Allergy Status Severity Reaction(s) Onset Inactive Treating Comm ents Source Name Type Date Date Clinician Gabapent Propensi Active Shortness of Univers in ty to Breath 8-28 ity of adverse 00:00: [place] reaction Medical s Branch GABAPENT DRUG Active Med SOB Univers IN INGREDI 8-28 ity of 00:00: [place] 00 Medical Branch Codeine Propensi Active Unknown - 2014-10 Univ ers ty to See comments 0-09 ity of adverse 00:00: [place] reaction 00 Medical s Branch Sulfamet Propensi Active Rash 2014-10 Univer s hoxazole ty to 0-09 ity of adverse 00:00: [place] reaction 00 Medical s Branch Adhesive Propensi Active Rash 2014-10 Univer s ty to 0-09 ity of adverse 00:00: [place] reaction 00 Medical s Branch SULFAMET DRUG Active Med Hives 2014-10 Univers HOXAZOLE INGREDI 0-09 ity of 00:00: [place] 00 Medical Branch ADHESIVE Drug Active Rash 2014-10 Univers Class 0-09 ity of 00:00: [place] 00 Medical Branch CODEINE DRUG Active Unknown-Cmnt 2014-10 Uni vers INGREDI 0-09 ity of 00:00: [place] 00 Medical Branch Adhesive Propensi Active Rash 2014-10 Univer s ty to 0-09 ity of adverse 00:00: [place] reaction Medical s Branch Social History Social Habit Start Date Stop Date Quantity Comments Source History SDAL University o f Alcohol Frequency [facility] edical Branch History SDAL University o f Alcohol Std Drinks [place] [facility] [place] History SDAL University o f Alcohol Binge [facility] [place] Exposure to 2023-01-09 2023-01-19 Not sure University SARS-CoV-2 (event) 00:00:00 08:23:00 [facility] Alcohol intake 2023-01-19 2023-01-19 .71 /d University of 00:00:00 00:00:00 [facility] Alcohol Comment 2021-08-04 2021-08-04 3 glass of wine [facility] [place] of 00:00:00 00:00:00 with dinner [facility] Cigarettes smoked 2021-08-04 2021-08-04 Univers ity of current (pack per 00:00:00 00:00:00 [facility] ) - Reported Branch Cigarette 2021-08-04 2021-08-04 University of pack-years 00:00:00 00:00:00 [facility] Tobacco use and 2021-08-04 2021-08-04 Smokeless Universit y of exposure 00:00:00 00:00:00 tobacco non-user [facility] History of tobacco 1989-11-18 Cigarette Smoker University of use 00:00:00 [facility] Sex [birth year] Universit y of 00:00:00 00:00:00 [facility] Smoking Status Start Date Stop Date Source Ex-smoker 2021-08-04 00:00:00 2021-08-04 00:00:00 Universi ty of [facility] Medications Ordered Filled Start Stop Current Ordering Indication Dosage Frequency Signature Comments Components Source Medication Medication Date Date Medication? Clinician (SIG) Name Name mupirocin 2 Yes [id number] Apply to Univers % ointment 3-29 area(s) 3 ity of 00:00: (three) [place] 00 times Medical daily. Branch mupirocin 2 2022- Yes [id number] Apply to Univers % ointment 3-29 area(s) 3 ity of 00:00: (three) [place] 00 times Medical daily. Branch mupirocin 2 2023-0 Yes [id number] Apply to Univers % ointment 3-29 area(s) 3 ity of 00:00: (three) [place] 00 times Medical daily. Branch mupirocin 2 3-0 Yes [id number] Apply to Univers % ointment 3-29 area(s) 3 ity of 00:00: (three) [place] 00 times Medical daily. Branch mupirocin 2 3-0 Yes [id number] Apply to Univers % ointment 3-29 area(s) 3 ity of 00:00: (three) [place] 00 times Medical daily. Branch mupirocin 2 3-0 Yes [id number] Apply to Univers % ointment 3-29 area(s) 3 ity of 00:00: (three) [place] 00 times Medical daily. Branch mupirocin 2 3-0 Yes [id number] Apply to Univers % ointment 3-29 area(s) 3 ity of 00:00: (three) [place] 00 times Medical daily. Branch mupirocin 2 3-0 Yes [id number] Apply to Univers % ointment 3-29 area(s) 3 ity of 00:00: (three) [place] 00 times Medical daily. Branch mupirocin 2 3-0 Yes [id number] Apply to Univers % ointment 3-29 area(s) 3 ity of 00:00: (three) [place] 00 times Medical daily. Branch mupirocin 2 3-0 Yes [id number] Apply to Univers % ointment 3-29 area(s) 3 ity of 00:00: (three) [place] 00 times Medical daily. Branch albuterol 2022-0 Yes [id number] 2{puff} Inhale 2 Univers (VENTOLIN 3-16 Puffs ity of HFA) 90 00:00: every 6 [place] mcg/actuati 00 (six) Medical on inhaler hours as Branc h needed for Wheezing or Shortness of Breath. albuterol 2022-0 Yes [id number] 2{puff} Inhale 2 Univers (VENTOLIN 3-16 Puffs ity of HFA) 90 00:00: every 6 [place] mcg/actuati 00 (six) Medical on inhaler hours as Branc h needed for Wheezing or Shortness of Breath. albuterol 2022-0 Yes [id number] 2{puff} Inhale 2 Univers (VENTOLIN 3-16 Puffs ity of HFA) 90 00:00: every 6 [place] mcg/actuati 00 (six) Medical on inhaler hours as Branc h needed for Wheezing or Shortness of Breath. albuterol 2022-0 Yes [id number] 2{puff} Inhale 2 Univers (VENTOLIN 3-16 Puffs ity of HFA) 90 00:00: every 6 [place] mcg/actuati 00 (six) Medical on inhaler hours as Branc h needed for Wheezing or Shortness of Breath. albuterol 2022-0 Yes [id number] 2{puff} Inhale 2 Univers (VENTOLIN 3-16 Puffs ity of HFA) 90 00:00: every 6 [place] mcg/actuati 00 (six) Medical on inhaler hours as Branc h needed for Wheezing or Shortness of Breath. albuterol 2022-0 Yes [id number] 2{puff} Inhale 2 Univers (VENTOLIN 3-16 Puffs ity of HFA) 90 00:00: every 6 [place] mcg/actuati 00 (six) Medical on inhaler hours as Branc h needed for Wheezing or Shortness of Breath. albuterol 2022-0 Yes [id number] 2{puff} Inhale 2 Univers (VENTOLIN 3-16 Puffs ity of HFA) 90 00:00: every 6 [place] mcg/actuati 00 (six) Medical on inhaler hours as Branc h needed for Wheezing or Shortness of Breath. albuterol 2022-0 Yes [id number] 2{puff} Inhale 2 Univers (VENTOLIN 3-16 Puffs ity of HFA) 90 00:00: every 6 [place] mcg/actuati 00 (six) Medical on inhaler hours as Branc h needed for Wheezing or Shortness of Breath. albuterol 2022-0 Yes [id number] 2{puff} Inhale 2 Univers (VENTOLIN 3-16 Puffs ity of HFA) 90 00:00: every 6 [place] mcg/actuati 00 (six) Medical on inhaler hours as Branc h needed for Wheezing or Shortness of Breath. albuterol 2022-0 Yes [id number] 2{puff} Inhale 2 Univers (VENTOLIN 3-16 Puffs ity of HFA) 90 00:00: every 6 [place] mcg/actuati 00 (six) Medical on inhaler hours as Branc h needed for Wheezing or Shortness of Breath. albuterol 2022-0 Yes [id number] 2{puff} Inhale 2 Univers (VENTOLIN 3-16 Puffs ity of HFA) 90 00:00: every 6 [place] mcg/actuati 00 (six) Medical on inhaler hours as Branc h needed for Wheezing or Shortness of Breath. albuterol 2022-0 Yes [id number] 2{puff} Inhale 2 Univers (VENTOLIN 3-16 Puffs ity of HFA) 90 00:00: every 6 [place] mcg/actuati 00 (six) Medical on inhaler hours as Branc h needed for Wheezing or Shortness of Breath. glimepiride 2022-0 Yes [id number] 1mg Take 1 Univers 1 mg tablet 2-08 tablet by ity of 00:00: mouth in [place] the Medical morning. Branch liraglutide 2022-0 Yes [id number] INJECT 1.8 Univers (VICTOZA 2-08 MG UNDER ity of 3-CLARA) 0.6 00:00: THE [place]IN [place] mg/0.1 mL 00 ONCE DAILY Medi josep (18 mg/3 EVERY Branch mL) MORNING injection glimepiride 2022-0 Yes [id number] 1mg Take 1 Univers 1 mg tablet 2-08 tablet by ity of 00:00: mouth in [place] the Medical morning. Branch liraglutide 2022-0 Yes [id number] INJECT 1.8 Univers (VICTOZA 2-08 MG UNDER ity of 3-CLARA) 0.6 00:00: THE [place] mg/0.1 mL 00 ONCE DAILY Medi josep (18 mg/3 EVERY Branch mL) MORNING injection glimepiride 2022-0 Yes [id number] 1mg Take 1 Univers 1 mg tablet 2-08 tablet by ity of 00:00: mouth in [place] the Medical morning. Branch liraglutide 2022-0 Yes [id number] INJECT 1.8 Univers (VICTOZA 2-08 MG UNDER ity of 3-CLARA) 0.6 00:00: THE [place] mg/0.1 mL 00 ONCE DAILY Medi josep (18 mg/3 EVERY Branch mL) MORNING injection glimepiride 2022-0 Yes [id number] 1mg Take 1 Univers 1 mg tablet 2-08 tablet by ity of 00:00: mouth in [place] the Medical morning. Branch liraglutide 2022-0 Yes [id number] INJECT 1.8 Univers (VICTOZA 2-08 MG UNDER ity of 3-CLARA) 0.6 00:00: THE [place] mg/0.1 mL 00 ONCE DAILY Medi josep (18 mg/3 EVERY Branch mL) MORNING injection glimepiride 2022-0 Yes [id number] 1mg Take 1 Univers 1 mg tablet 2-08 tablet by ity of 00:00: mouth in [place] the Medical morning. Branch liraglutide 2022-0 Yes [id number] INJECT 1.8 Univers (VICTOZA 2-08 MG UNDER ity of 3-CLARA) 0.6 00:00: THE [place] mg/0.1 mL 00 ONCE DAILY Medi josep (18 mg/3 EVERY Branch mL) MORNING injection glimepiride 2022-0 Yes [id number] 1mg Take 1 Univers 1 mg tablet 2-08 tablet by ity of 00:00: mouth in [place] the Medical morning. Branch liraglutide 2022-0 Yes [id number] INJECT 1.8 Univers (VICTOZA 2-08 MG UNDER ity of 3-CLARA) 0.6 00:00: THE [place] mg/0.1 mL 00 ONCE DAILY Medi josep (18 mg/3 EVERY Branch mL) MORNING injection glimepiride 2022-0 Yes [id number] 1mg Take 1 Univers 1 mg tablet 2-08 tablet by ity of 00:00: mouth in [place] the Medical morning. Branch liraglutide 2022-0 Yes [id number] INJECT 1.8 Univers (VICTOZA 2-08 MG UNDER ity of 3-CLARA) 0.6 00:00: THE [place]IN [place] mg/0.1 mL 00 ONCE DAILY Medi josep (18 mg/3 EVERY Branch mL) MORNING injection glimepiride 2022-0 Yes [id number] 1mg Take 1 Univers 1 mg tablet 2-08 tablet by ity of 00:00: mouth in [place] the Medical morning. Branch liraglutide 2022-0 Yes [id number] INJECT 1.8 Univers (VICTOZA 2-08 MG UNDER ity of 3-CLARA) 0.6 00:00: THE [place] mg/0.1 mL 00 ONCE DAILY Medi josep (18 mg/3 EVERY Branch mL) MORNING injection glimepiride 2022-0 Yes [id number] 1mg Take 1 Univers 1 mg tablet 2-08 tablet by ity of 00:00: mouth in [place] 00 the Medical morning. Branch liraglutide 2022-0 Yes [id number] INJECT 1.8 Univers (VICTOZA 2-08 MG UNDER ity of 3-CLARA) 0.6 00:00: THE [place] mg/0.1 mL 00 ONCE DAILY Medi josep (18 mg/3 EVERY Branch mL) MORNING injection glimepiride 2022-0 Yes [id number] 1mg Take 1 Univers 1 mg tablet 2-08 tablet by ity of 00:00: mouth in [place] the Medical morning. Branch liraglutide 2022-0 Yes [id number] INJECT 1.8 Univers (VICTOZA 2-08 MG UNDER ity of 3-CLARA) 0.6 00:00: THE [place]IN [place] mg/0.1 mL 00 ONCE DAILY Medi josep (18 mg/3 EVERY Branch mL) MORNING injection glimepiride 2022-0 Yes [id number] 1mg Take 1 Univers 1 mg tablet 2-08 tablet by ity of 00:00: mouth in [place] the Medical morning. Branch liraglutide 2022-0 Yes [id number] INJECT 1.8 Univers (VICTOZA 2-08 MG UNDER ity of 3-CLARA) 0.6 00:00: THE [place]IN [place] mg/0.1 mL 00 ONCE DAILY Medi josep (18 mg/3 EVERY Branch mL) MORNING injection glimepiride 2022-0 Yes [id number] 1mg Take 1 Univers 1 mg tablet 2-08 tablet by ity of 00:00: mouth in [place] the Medical morning. Branch liraglutide 2022-0 Yes [id number] INJECT 1.8 Univers (VICTOZA 2-08 MG UNDER ity of 3-CLARA) 0.6 00:00: THE [place]IN [place] mg/0.1 mL 00 ONCE DAILY Medi josep (18 mg/3 EVERY Branch mL) MORNING injection glimepiride 2022-0 Yes [id number] 1mg Take 1 Univers 1 mg tablet 2-08 tablet by ity of 00:00: mouth in [place] 00 the Medical morning. Branch liraglutide 2022-0 Yes [id number] INJECT 1.8 Univers (VICTOZA 2-08 MG UNDER ity of 3-CLARA) 0.6 00:00: THE [place] mg/0.1 mL 00 ONCE DAILY Medi josep (18 mg/3 EVERY Branch mL) MORNING injection glimepiride 0 Yes [id number] 1mg Take 1 Univers 1 mg tablet 2-08 tablet by ity of 00:00: mouth in [place] 00 the Medical morning. Branch liraglutide 2022-0 Yes [id number] INJECT 1.8 Univers (VICTOZA 2-08 MG UNDER ity of 3-CLARA) 0.6 00:00: THE [place]IN [place] mg/0.1 mL 00 ONCE DAILY Medi josep (18 mg/3 EVERY Branch mL) MORNING injection glimepiride 0 Yes [id number] 1mg Take 1 Univers 1 mg tablet 2-08 tablet by ity of 00:00: mouth in [place] 00 the Medical morning. Branch liraglutide Yes [id number] INJECT 1.8 Univers (VICTOZA 2-08 MG UNDER ity of 3-CLARA) 0.6 00:00: THE [place]IN [place] mg/0.1 mL 00 ONCE DAILY Medi josep (18 mg/3 EVERY Branch mL) MORNING injection glimepiride 2022-0 Yes [id number] 1mg Take 1 Univers 1 mg tablet 2-02 tablet by ity of 00:00: mouth in [place] 00 the Medical morning. Branch glimepiride 2022-0 2022- No [id number] 1mg Take 1 Univers 1 mg tablet 2-02 02-08 tablet by it y of 00:00: 00:00 mouth in [place] 00 :00 the Medical morning. Branch glimepiride 2022-0 2022- No [id number] 1mg Take 1 Univers 1 mg tablet 2-02 02-08 tablet by it y of 00:00: 00:00 mouth in [place] 00 :00 the Medical morning. Branch B Yes Take by Univers INFANTIS/B 1-05 mouth. ity of ANI/B HAMLET/B 09:35: [place] BIFID 41 Medical (PROBIOTIC Branch 4X ORAL) vitamin C Yes 1000mg Take 1,000 Univers with stefany 1-05 mg by ity of hips 1,000 09:35: mouth [place] mg tablet 41 daily. Medical Branch flaxseed Yes 1{tbl} Take 1 Unive rs oil (OMEGA 1-05 tablet by ity of 3 ORAL) 09:35: mouth [place] 41 daily. Medical Branch B Yes Take by Univers INFANTIS/B 1-05 mouth. ity of ANI/B HAMLET/B 09:35: [place] BIFID 41 Medical (PROBIOTIC Branch 4X ORAL) vitamin C Yes 1000mg Take 1,000 Univers with stefany 1-05 mg by ity of hips 1,000 09:35: mouth [place] mg tablet 41 daily. Medical Branch flaxseed Yes 1{tbl} Take 1 Unive rs oil (OMEGA 1-05 tablet by ity of 3 ORAL) 09:35: mouth [place] 41 daily. Medical Branch B Yes Take by Univers INFANTIS/B 1-05 mouth. ity of ANI/B HAMLET/B 09:35: [place] BIFID 41 Medical (PROBIOTIC Branch 4X ORAL) vitamin C Yes 1000mg Take 1,000 Univers with stefany 1-05 mg by ity of hips 1,000 09:35: mouth [place] mg tablet 41 daily. Medical Branch flaxseed Yes 1{tbl} Take 1 Unive rs oil (OMEGA 1-05 tablet by ity of 3 ORAL) 09:35: mouth [place] 41 daily. Medical Branch B Yes Take by Univers INFANTIS/B 1-05 mouth. ity of ANI/B HAMLET/B 09:35: [place] BIFID 41 Medical (PROBIOTIC Branch 4X ORAL) vitamin C Yes 1000mg Take 1,000 Univers with stefany 1-05 mg by ity of hips 1,000 09:35: mouth [place] mg tablet 41 daily. Medical Branch flaxseed Yes 1{tbl} Take 1 Unive rs oil (OMEGA 1-05 tablet by ity of 3 ORAL) 09:35: mouth [place] 41 daily. Medical Branch B Yes Take by Univers INFANTIS/B 1-05 mouth. ity of ANI/B HAMLET/B 09:35: [place] BIFID 41 Medical (PROBIOTIC Branch 4X ORAL) vitamin C 0 Yes 1000mg Take 1,000 Univers with stefany 1-05 mg by ity of hips 1,000 09:35: mouth [place] mg tablet 41 daily. Medical Branch flaxseed Yes 1{tbl} Take 1 Unive rs oil (OMEGA 1-05 tablet by ity of 3 ORAL) 09:35: mouth [place] 41 daily. Medical Branch B Yes Take by Univers INFANTIS/B 1-05 mouth. ity of ANI/B HAMLET/B 09:35: [place] BIFID 41 Medical (PROBIOTIC Branch 4X ORAL) vitamin C Yes 1000mg Take 1,000 Univers with stefany 1-05 mg by ity of hips 1,000 09:35: mouth [place] mg tablet 41 daily. Medical Branch flaxseed Yes 1{tbl} Take 1 Unive rs oil (OMEGA 1-05 tablet by ity of 3 ORAL) 09:35: mouth [place] 41 daily. Medical Branch B Yes Take by Univers INFANTIS/B 1-05 mouth. ity of ANI/B HAMLET/B 09:35: [place] BIFID 41 Medical (PROBIOTIC Branch 4X ORAL) vitamin C Yes 1000mg Take 1,000 Univers with stefany 1-05 mg by ity of hips 1,000 09:35: mouth [place] mg tablet 41 daily. Medical Branch flaxseed Yes 1{tbl} Take 1 Unive rs oil (OMEGA 1-05 tablet by ity of 3 ORAL) 09:35: mouth [place] 41 daily. Medical Branch B Yes Take by Univers INFANTIS/B 1-05 mouth. ity of ANI/B HAMLET/B 09:35: [place] BIFID 41 Medical (PROBIOTIC Branch 4X ORAL) vitamin C Yes 1000mg Take 1,000 Univers with stefany 1-05 mg by ity of hips 1,000 09:35: mouth [place] mg tablet 41 daily. Medical Branch flaxseed Yes 1{tbl} Take 1 Unive rs oil (OMEGA 1-05 tablet by ity of 3 ORAL) 09:35: mouth [place] 41 daily. Medical Branch B Yes Take by Univers INFANTIS/B 1-05 mouth. ity of ANI/B HAMLET/B 09:35: [place] BIFID 41 Medical (PROBIOTIC Branch 4X ORAL) vitamin C Yes 1000mg Take 1,000 Univers with stefany 1-05 mg by ity of hips 1,000 09:35: mouth [place] mg tablet 41 daily. Medical Branch flaxseed Yes 1{tbl} Take 1 Unive rs oil (OMEGA 1-05 tablet by ity of 3 ORAL) 09:35: mouth [place] 41 daily. Medical Branch B Yes Take by Univers INFANTIS/B 1-05 mouth. ity of ANI/B HAMLET/B 09:35: [place] BIFID 41 Medical (PROBIOTIC Branch 4X ORAL) vitamin C Yes 1000mg Take 1,000 Univers with stefany 1-05 mg by ity of hips 1,000 09:35: mouth [place] mg tablet 41 daily. Medical Branch flaxseed Yes 1{tbl} Take 1 Unive rs oil (OMEGA 1-05 tablet by ity of 3 ORAL) 09:35: mouth [place] 41 daily. Medical Branch B Yes Take by Univers INFANTIS/B 1-05 mouth. ity of ANI/B HAMLET/B 09:35: [place] BIFID 41 Medical (PROBIOTIC Branch 4X ORAL) vitamin C Yes 1000mg Take 1,000 Univers with stefany 1-05 mg by ity of hips 1,000 09:35: mouth [place] mg tablet 41 daily. Medical Branch flaxseed Yes 1{tbl} Take 1 Unive rs oil (OMEGA 1-05 tablet by ity of 3 ORAL) 09:35: mouth [place] 41 daily. Medical Branch B Yes Take by Univers INFANTIS/B 1-05 mouth. ity of ANI/B HAMLET/B 09:35: [place] BIFID 41 Medical (PROBIOTIC Branch 4X ORAL) vitamin C Yes 1000mg Take 1,000 Univers with stefany 1-05 mg by ity of hips 1,000 09:35: mouth [place] mg tablet 41 daily. Medical Branch flaxseed Yes 1{tbl} Take 1 Unive rs oil (OMEGA 1-05 tablet by ity of 3 ORAL) 09:35: mouth [place] 41 daily. Medical Branch B Yes Take by Univers INFANTIS/B 1-05 mouth. ity of ANI/B HAMLET/B 09:35: [place] BIFID 41 Medical (PROBIOTIC Branch 4X ORAL) vitamin C Yes 1000mg Take 1,000 Univers with stefany 1-05 mg by ity of hips 1,000 09:35: mouth [place] mg tablet 41 daily. Medical Branch flaxseed Yes 1{tbl} Take 1 Unive rs oil (OMEGA 1-05 tablet by ity of 3 ORAL) 09:35: mouth [place] 41 daily. Medical Branch B Yes Take by Univers INFANTIS/B 1-05 mouth. ity of ANI/B HAMLET/B 09:35: [place] BIFID 41 Medical (PROBIOTIC Branch 4X ORAL) vitamin C Yes 1000mg Take 1,000 Univers with stefany 1-05 mg by ity of hips 1,000 09:35: mouth [place] mg tablet 41 daily. Medical Branch flaxseed Yes 1{tbl} Take 1 Unive rs oil (OMEGA 1-05 tablet by ity of 3 ORAL) 09:35: mouth [place] 41 daily. Medical Branch B Yes Take by Univers INFANTIS/B 1-05 mouth. ity of ANI/B HAMLET/B 09:35: [place] BIFID 41 Medical (PROBIOTIC Branch 4X ORAL) vitamin C Yes 1000mg Take 1,000 Univers with stefany 1-05 mg by ity of hips 1,000 09:35: mouth [place] mg tablet 41 daily. Medical Branch flaxseed Yes 1{tbl} Take 1 Unive rs oil (OMEGA 1-05 tablet by ity of 3 ORAL) 09:35: mouth [place] 41 daily. Medical Branch B Yes Take by Univers INFANTIS/B 1-05 mouth. ity of ANI/B HAMLET/B 09:35: [place] BIFID 41 Medical (PROBIOTIC Branch 4X ORAL) vitamin C Yes 1000mg Take 1,000 Univers with stefany 1-05 mg by ity of hips 1,000 09:35: mouth [place] mg tablet 41 daily. Medical Branch flaxseed Yes 1{tbl} Take 1 Unive rs oil (OMEGA 1-05 tablet by ity of 3 ORAL) 09:35: mouth [place] 41 daily. Medical Branch B Yes Take by Univers INFANTIS/B 1-05 mouth. ity of ANI/B HAMLET/B 09:35: [place] BIFID 41 Medical (PROBIOTIC Branch 4X ORAL) vitamin C Yes 1000mg Take 1,000 Univers with stefany 1-05 mg by ity of hips 1,000 09:35: mouth [place] mg tablet 41 daily. Medical Branch flaxseed Yes 1{tbl} Take 1 Unive rs oil (OMEGA 1-05 tablet by ity of 3 ORAL) 09:35: mouth [place] 41 daily. Medical Branch B Yes Take by Univers INFANTIS/B 1-05 mouth. ity of ANI/B HAMLET/B 09:35: [place] BIFID 41 Medical (PROBIOTIC Branch 4X ORAL) vitamin C Yes 1000mg Take 1,000 Univers with stefany 1-05 mg by ity of hips 1,000 09:35: mouth [place] mg tablet 41 daily. Medical Branch flaxseed Yes 1{tbl} Take 1 Unive rs oil (OMEGA 1-05 tablet by ity of 3 ORAL) 09:35: mouth [place] 41 daily. Medical Branch B Yes Take by Univers INFANTIS/B 1-05 mouth. ity of ANI/B HAMLET/B 09:35: [place] BIFID 41 Medical (PROBIOTIC Branch 4X ORAL) vitamin C Yes 1000mg Take 1,000 Univers with stefany 1-05 mg by ity of hips 1,000 09:35: mouth [place] mg tablet 41 daily. Medical Branch flaxseed Yes 1{tbl} Take 1 Unive rs oil (OMEGA 1-05 tablet by ity of 3 ORAL) 09:35: mouth [place] 41 daily. Medical Branch B Yes Take by Univers INFANTIS/B 1-05 mouth. ity of ANI/B HAMLET/B 09:35: [place] BIFID 41 Medical (PROBIOTIC Branch 4X ORAL) vitamin C Yes 1000mg Take 1,000 Univers with stefany 1-05 mg by ity of hips 1,000 09:35: mouth [place] mg tablet 41 daily. Medical Branch flaxseed Yes 1{tbl} Take 1 Unive rs oil (OMEGA 1-05 tablet by ity of 3 ORAL) 09:35: mouth [place] 41 daily. Medical Branch B Yes Take by Univers INFANTIS/B 1-05 mouth. ity of ANI/B HAMLET/B 09:35: [place] BIFID 41 Medical (PROBIOTIC Branch 4X ORAL) vitamin C Yes 1000mg Take 1,000 Univers with stefany 1-05 mg by ity of hips 1,000 09:35: mouth [place] mg tablet 41 daily. Medical Branch flaxseed Yes 1{tbl} Take 1 Un[facility] rs oil (OMEGA 1-05 tablet by ity of 3 ORAL) 09:35: mouth [place] 41 daily. Medical Branch GLIMEPIRIDE 2021-10 Yes [id number] TAKE 1 [facility] 1 mg tablet 2-30 TABLET BY ity of 00:00: MOUTH [place] 00 EVERY DAY Medical Branch GLIMEPIRIDE 2021-10 Yes [id number] TAKE 1 [facility] 1 mg tablet 2-30 TABLET BY ity of 00:00: MOUTH [place] 00 EVERY DAY Medical Branch GLIMEPIRIDE 2021-10 Yes [id number] TAKE 1 [facility] 1 mg tablet 2-30 TABLET BY ity of 00:00: MOUTH [place] 00 EVERY DAY Medical Branch GLIMEPIRIDE 2021-10 Yes [id number] TAKE 1 [facility] 1 mg tablet 2-30 TABLET BY ity of 00:00: MOUTH [place] 00 EVERY DAY Medical Branch GLIMEPIRIDE 2021-10 Yes [id number] TAKE 1 [facility] 1 mg tablet 2-30 TABLET BY ity of 00:00: MOUTH [place] 00 EVERY DAY Medical Branch GLIMEPIRIDE 2021-10 Yes [id number] TAKE 1 [facility] 1 mg tablet 2-30 TABLET BY ity of 00:00: MOUTH [place] 00 EVERY DAY Medical Branch GLIMEPIRIDE 2021-10- No [id number] TAKE 1 [facility] 1 mg tablet 2-30 - TABLET BY it y of 00:00: 00:00 MOUTH [place] 00 :00 EVERY DAY Medical Branch doxycycline 2021-10 Yes [id number] 100mg Take 1 [facility] hyclate 100 2-22 capsule by it y of mg capsule 00:00: mouth [place] 00 every 12 Medical (twelve) Branch hours. doxycycline 2021-10 Yes [id number] 100mg Take 1 [facility] hyclate 100 2-22 capsule by it y of mg capsule 00:00: mouth [place] 00 every 12 Medical (twelve) Branch hours. doxycycline 2021- Yes [id number] 100mg Take 1 [facility] hyclate 100 2-22 capsule by it y of mg capsule 00:00: mouth [place] 00 every 12 Medical (twelve) Branch hours. doxycycline 2021-1 Yes [id number] 100mg Take 1 [facility] hyclate 100 2-22 capsule by it y of mg capsule 00:00: mouth [place] 00 every 12 Medical (twelve) Branch hours. doxycycline 2021-1 Yes [id number] 100mg Take 1 [facility] hyclate 100 2-22 capsule by it y of mg capsule 00:00: mouth [place] 00 every 12 Medical (twelve) Branch hours. doxycycline 2021-1 Yes [id number] 100mg Take 1 [facility] hyclate 100 2-22 capsule by it y of mg capsule 00:00: mouth [place] 00 every 12 Medical (twelve) Branch hours. doxycycline 2021-1 Yes [id number] 100mg Take 1 [facility] hyclate 100 2-22 capsule by it y of mg capsule 00:00: mouth [place] 00 every 12 Medical (twelve) Branch hours. doxycycline 2021- Yes [id number] 100mg Take 1 [facility] hyclate 100 2-22 capsule by it y of mg capsule 00:00: mouth [place] 00 every 12 Medical (twelve) Branch hours. doxycycline 2021-1 Yes [id number] 100mg Take 1 [facility] hyclate 100 2-22 capsule by it y of mg capsule 00:00: mouth [place] 00 every 12 Medical (twelve) Branch hours. doxycycline 2021-1 Yes [id number] 100mg Take 1 [facility] hyclate 100 2-22 capsule by it y of mg capsule 00:00: mouth [place] 00 every 12 Medical (twelve) Branch hours. doxycycline 2021-1 Yes [id number] 100mg Take 1 [facility] hyclate 100 2-22 capsule by it y of mg capsule 00:00: mouth [place] 00 every 12 Medical (twelve) Branch hours. doxycycline 2021-1 Yes [id number] 100mg Take 1 [facility] hyclate 100 2-22 capsule by it y of mg capsule 00:00: mouth [place] 00 every 12 Medical (twelve) Branch hours. doxycycline 2021-1 Yes [id number] 100mg Take 1 [facility] hyclate 100 2-22 capsule by it y of mg capsule 00:00: mouth [place] 00 every 12 Medical (twelve) Branch hours. doxycycline 2021-1 Yes [id number] 100mg Take 1 [facility] hyclate 100 2-22 capsule by it y of mg capsule 00:00: mouth [place] 00 every 12 Medical (twelve) Branch hours. doxycycline 2021-1 Yes [id number] 100mg Take 1 [facility] hyclate 100 2-22 capsule by it y of mg capsule 00:00: mouth [place] 00 every 12 Medical (twelve) Branch hours. doxycycline 2021-1 Yes [id number] 100mg Take 1 [facility] hyclate 100 2-22 capsule by it y of mg capsule 00:00: mouth [place] 00 every 12 Medical (twelve) Branch hours. doxycycline 2021-1 Yes [id number] 100mg Take 1 [facility] hyclate 100 2-22 capsule by it y of mg capsule 00:00: mouth [place] 00 every 12 Medical (twelve) Branch hours. doxycycline 2021-1 Yes [id number] 100mg Take 1 [facility] hyclate 100 2-22 capsule by it y of mg capsule 00:00: mouth [place] 00 every 12 Medical (twelve) Branch hours. doxycycline 2021-1 Yes [id number] 100mg Take 1 [facility] hyclate 100 2-22 capsule by it y of mg capsule 00:00: mouth [place] 00 every 12 Medical (twelve) Branch hours. doxycycline 2021-1 Yes [id number] 100mg Take 1 [facility] hyclate 100 2-22 capsule by it y of mg capsule 00:00: mouth [place] 00 every 12 Medical (twelve) Branch hours. doxycycline 2021-1 Yes [id number] 100mg Take 1 [facility] hyclate 100 2-22 capsule by it y of mg capsule 00:00: mouth [place] 00 every 12 Medical (twelve) Branch hours. doxycycline 2021-1 Yes [id number] 100mg Take 1 [facility] hyclate 100 2-22 capsule by it y of mg capsule 00:00: mouth [place] 00 every 12 Medical (twelve) Branch hours. doxycycline 2021-1 Yes [id number] 100mg Take 1 [facility] hyclate 100 2-22 capsule by it y of mg capsule 00:00: mouth [place] 00 every 12 Medical (twelve) Branch hours. doxycycline 2021-1 Yes [id number] 100mg Take 1 [facility] hyclate 100 2-22 capsule by it y of mg capsule 00:00: mouth [place] 00 every 12 Medical (twelve) Branch hours. bupivacaine 2021-10- No PRN, Unive rs -epinephrin 11-23 Starting ity of e-pf 14:00: 14:44 on Sun [place] (SENSORCAIN 00 :30 [place]22/22 at [place] [facility]ical E 0800, Branch W/EPINEPHRI Intra-op NE) 0.25 %-1:200,000 30 mL, lidocaine 1% (PF) (XYLOCAINE) 30 mL sodium 2021-10- No PRN, Univers chloride 11-23 Starting ity of 0.9 % 14:00: 14:44 on Sun [place] irrigation 00 :30 09/22/22 at [facility] ical solution 0800, Branch Until Sun09/22/22 at 0844, Intra-op lactated 2021-10- No 1000mL at 42 [facility] rs ringers IV 11-23-09 mL/hr, ity of infusion 13:00: 13:26 1,000 mL, [place] 1,000 mL 00 :00 IV Medical Infusion, Branch ONCE, 1 dose, On Sun09/22/22 at 0700, Routine, DSU Pre-op lactated 2021-10- No 1000mL at 42 [facility] rs ringers IV 11-2309 mL/hr, ity of infusion 13:00: 13:26 1,000 mL, [place] 1,000 mL 00 :00 IV Medical Infusion, Branch ONCE, 1 dose, On Sun09/22/22 at 0700, Routine, DSU Pre-op B 2021-10 Yes Take by [facility] INFANTIS/B 2-09 mouth. ity of ANI/B HAMLET/B 11:26: [facility] 15 Medical (PROBIOTIC Branch 4X ORAL) aspirin 81 2021-10 Yes 81mg Take 81 mg U nivers mg chewable 2-09 by mouth ity of tablet 11:26: daily. [place] 15 Medical Branch vitamin C 2021-10 Yes 1000mg Take 1,000 [facility] with stefany 2-09 mg by ity of hips 1,000 11:26: mouth [place] mg tablet 15 daily. Medical Branch diphenhydrA 2021-10 Yes 25mg Take 25 mg [facility] MINE 25 mg 2-09 by mouth ity o f tablet 11:26: every 6 [place] 15 (six) Medical hours as Branch needed for Allergies. flaxseed 2021-10 Yes 1{tbl} Take 1 Unive rs oil (OMEGA 2-09 tablet by ity of 3 ORAL) 11:26: mouth [place] 15 daily. Medical Branch rivaroxaban 2021-10 Yes 15mg Take 15 mg [facility] 15 mg 2-09 by mouth ity of tablet 11:26: in the [place] 15 morning. Medical Branch B 2021-10 Yes Take by [facility] INFANTIS/B 2-09 mouth. ity of ANI/B HAMLET/B 11:26: [place] BIFID 15 Medical (PROBIOTIC Branch 4X ORAL) aspirin 81 2021-10 Yes 81mg Take 81 mg U nivers mg chewable 2-09 by mouth ity of tablet 11:26: daily. 15 Medical Branch vitamin C 2021-10 Yes 1000mg Take 1,000 [facility] with stefany 2-09 mg by ity of hips 1,000 11:26: mouth [place] mg tablet 15 daily. Medical Branch diphenhydrA 2021-10 Yes 25mg Take 25 mg [facility] MINE 25 mg 2-09 by mouth ity o f tablet 11:26: every 6 [place] 15 (six) Medical hours as Branch needed for Allergies. flaxseed 2021-10 Yes 1{tbl} Take 1 Unive rs oil (OMEGA 2-09 tablet by ity of 3 ORAL) 11:26: mouth [place] 15 daily. Medical Branch rivaroxaban 2021-10 Yes 15mg Take 15 mg [facility] 15 mg 2-09 by mouth ity of tablet 11:26: in the [place] 15 morning. Medical Branch B 2021-10 Yes Take by [facility] INFANTIS/B 2-09 mouth. ity of ANI/B HAMLET/B 11:26: [place] BIFID 15 Medical (PROBIOTIC Branch 4X ORAL) aspirin 81 2021-10 Yes 81mg Take 81 mg U nivers mg chewable 2-09 by mouth ity of tablet 11:26: daily. 15 Medical Branch vitamin C 2021-10 Yes 1000mg Take 1,000 [facility] with stefany 2-09 mg by ity of hips 1,000 11:26: mouth [place] mg tablet 15 daily. Medical Branch diphenhydrA 2021-10 Yes 25mg Take 25 mg [facility] MINE 25 mg 2-09 by mouth ity o f tablet 11:26: every 6 [place] 15 (six) Medical hours as Branch needed for Allergies. flaxseed 2021-10 Yes 1{tbl} Take 1 Unive rs oil (OMEGA 2-09 tablet by ity of 3 ORAL) 11:26: mouth [place] 15 daily. Medical Branch rivaroxaban 2021-10 Yes 15mg Take 15 mg [facility] 15 mg 2-09 by mouth ity of tablet 11:26: in the [place] 15 morning. Medical Branch B 2021-10 Yes Take by [facility] INFANTIS/B 2-09 mouth. ity of ANI/B HAMLET/B 11:26: [place] BIFID 15 Medical (PROBIOTIC Branch 4X ORAL) aspirin 81 2021-10 Yes 81mg Take 81 mg U nivers mg chewable 2-09 by mouth ity of tablet 11:26: daily. 15 Medical Branch vitamin C 2021-10 Yes 1000mg Take 1,000 [facility] with stefany 2-09 mg by ity of hips 1,000 11:26: mouth [place] mg tablet 15 daily. Medical Branch diphenhydrA 2021-10 Yes 25mg Take 25 mg [facility] MINE 25 mg 2-09 by mouth ity o f tablet 11:26: every 6 [place] 15 (six) Medical hours as Branch needed for Allergies. flaxseed 2021-10 Yes 1{tbl} Take 1 Unive rs oil (OMEGA 2-09 tablet by ity of 3 ORAL) 11:26: mouth [place] 15 daily. Medical Branch rivaroxaban 2021-10 Yes 15mg Take 15 mg [facility] 15 mg 2-09 by mouth ity of tablet 11:26: in the [place] 15 morning. Medical Branch B 2021-10 Yes Take by [facility] INFANTIS/B 2-09 mouth. ity of ANI/B HAMLET/B 11:26: [place] BIFID 15 Medical (PROBIOTIC Branch 4X ORAL) aspirin 81 2021-10 Yes 81mg Take 81 mg U nivers mg chewable 2-09 by mouth ity of tablet 11:26: daily. 15 Medical Branch vitamin C 2021-10 Yes 1000mg Take 1,000 [facility] with stefany 2-09 mg by ity of hips 1,000 11:26: mouth [place] mg tablet 15 daily. Medical Branch diphenhydrA 2021-10 Yes 25mg Take 25 mg [facility] MINE 25 mg 2-09 by mouth ity o f tablet 11:26: every 6 [place] 15 (six) Medical hours as Branch needed for Allergies. flaxseed 2021-10 Yes 1{tbl} Take 1 Unive rs oil (OMEGA 2-09 tablet by ity of 3 ORAL) 11:26: mouth [place] 15 daily. Medical Branch rivaroxaban 2021-10 Yes 15mg Take 15 mg [facility] 15 mg 2-09 by mouth ity of tablet 11:26: in the [place] 15 morning. Medical Branch aspirin 81 2021-10 Yes 81mg Take 81 mg U nivers mg chewable 2-09 by mouth ity of tablet 11:26: daily. 15 Medical Branch diphenhydrA 2021-10 Yes 25mg Take 25 mg [facility] MINE 25 mg 2-09 by mouth ity o f tablet 11:26: every 6 [place] 15 (six) Medical hours as Branch needed for Allergies. rivaroxaban 2021-10 Yes 15mg Take 15 mg [facility] 15 mg 2-09 by mouth ity of tablet 11:26: in the [place] 15 morning. Medical Branch aspirin 81 2021-10 Yes 81mg Take 81 mg U nivers mg chewable 2-09 by mouth ity of tablet 11:26: daily. 15 Medical Branch diphenhydrA 2021-10 Yes 25mg Take 25 mg [facility] MINE 25 mg 2-09 by mouth ity o f tablet 11:26: every 6 [place] 15 (six) Medical hours as Branch needed for Allergies. rivaroxaban 2021-10 Yes 15mg Take 15 mg [facility] 15 mg 2-09 by mouth ity of tablet 11:26: in the [place] 15 morning. Medical Branch aspirin 81 2021-10 Yes 81mg Take 81 mg U nivers mg chewable 2-09 by mouth ity of tablet 11:26: daily. 15 Medical Branch diphenhydrA 2021-10 Yes 25mg Take 25 mg [facility] MINE 25 mg 2-09 by mouth ity o f tablet 11:26: every 6 [place] 15 (six) Medical hours as Branch needed for Allergies. rivaroxaban 2021-10 Yes 15mg Take 15 mg [facility] 15 mg 2-09 by mouth ity of tablet 11:26: in the [place] 15 morning. Medical Branch aspirin 81 2021-10 Yes 81mg Take 81 mg U nivers mg chewable 2-09 by mouth ity of tablet 11:26: daily. 15 Medical Branch diphenhydrA 2021-10 Yes 25mg Take 25 mg [facility] MINE 25 mg 2-09 by mouth ity o f tablet 11:26: every 6 [place] 15 (six) Medical hours as Branch needed for Allergies. rivaroxaban 2021-10 Yes 15mg Take 15 mg [facility] 15 mg 2-09 by mouth ity of tablet 11:26: in the [place] 15 morning. Medical Branch aspirin 81 2021-10 Yes 81mg Take 81 mg U nivers mg chewable 2-09 by mouth ity of tablet 11:26: daily. Medical Branch diphenhydrA 2021-10 Yes 25mg Take 25 mg [facility] MINE 25 mg 2-09 by mouth ity o f tablet 11:26: every 6 [place] [address] (six) Medical hours as Branch needed for Allergies. rivaroxaban 2021-10 Yes 15mg Take 15 mg [facility] 15 mg 2-09 by mouth ity of tablet 11:26: in the [place] 15 morning. Medical Branch aspirin 81 2021-10 Yes 81mg Take 81 mg U nivers mg chewable 2-09 by mouth ity of tablet 11:26: daily. Medical Branch diphenhydrA 2021-10 Yes 25mg Take 25 mg [facility] MINE 25 mg 2-09 by mouth ity o f tablet 11:26: every 6 [place] [address] (six) Medical hours as Branch needed for Allergies. rivaroxaban 2021-10 Yes 15mg Take 15 mg [facility] 15 mg 2-09 by mouth ity of tablet 11:26: in the [place] 15 morning. Medical Branch aspirin 81 2021-10 Yes 81mg Take 81 mg U nivers mg chewable 2-09 by mouth ity of tablet 11:26: daily. [place] [address] Medical Branch diphenhydrA 2021-10 Yes 25mg Take 25 mg [facility] MINE 25 mg 2-09 by mouth ity o f tablet 11:26: every 6 [place] 15 (six) Medical hours as Branch needed for Allergies. rivaroxaban 2021-10 Yes 15mg Take 15 mg [facility] 15 mg 2-09 by mouth ity of tablet 11:26: in the [place] 15 morning. Medical Branch aspirin 81 2021-10 Yes 81mg Take 81 mg U nivers mg chewable 2-09 by mouth ity of tablet 11:26: daily. [place] [address] Medical Branch diphenhydrA 2021-10 Yes 25mg Take 25 mg [facility] MINE 25 mg 2-09 by mouth ity o f tablet 11:26: every 6 [place] 15 (six) Medical hours as Branch needed for Allergies. rivaroxaban 2021-10 Yes 15mg Take 15 mg [facility] 15 mg 2-09 by mouth ity of tablet 11:26: in the [place] 15 morning. Medical Branch aspirin 81 2021-10 Yes 81mg Take 81 mg U nivers mg chewable 2-09 by mouth ity of tablet 11:26: daily. Medical Branch diphenhydrA 2021-10 Yes 25mg Take 25 mg [facility] MINE 25 mg 2-09 by mouth ity o f tablet 11:26: every 6 [place] 15 (six) Medical hours as Branch needed for Allergies. rivaroxaban 2021-10 Yes 15mg Take 15 mg [facility] 15 mg 2-09 by mouth ity of tablet 11:26: in the [place] 15 morning. Medical Branch aspirin 81 2021-10 Yes 81mg Take 81 mg U nivers mg chewable 2-09 by mouth ity of tablet 11:26: daily. [place] [address] Medical Branch diphenhydrA 2021-10 Yes 25mg Take 25 mg [facility] MINE 25 mg 2-09 by mouth ity o f tablet 11:26: every 6 [place] 15 (six) Medical hours as Branch needed for Allergies. rivaroxaban 2021-10 Yes 15mg Take 15 mg [facility] 15 mg 2-09 by mouth ity of tablet 11:26: in the [place] 15 morning. Medical Branch aspirin 81 2021-10 Yes 81mg Take 81 mg U nivers mg chewable 2-09 by mouth ity of tablet 11:26: daily. [place] [address] Medical Branch diphenhydrA 2021-10 Yes 25mg Take 25 mg [facility] MINE 25 mg 2-09 by mouth ity o f tablet 11:26: every 6 [place] 15 (six) Medical hours as Branch needed for Allergies. rivaroxaban 2021-10 Yes 15mg Take 15 mg [facility] 15 mg 2-09 by mouth ity of tablet 11:26: in the [place] 15 morning. Medical Branch aspirin 81 2021-10 Yes 81mg Take 81 mg U nivers mg chewable 2-09 by mouth ity of tablet 11:26: daily. [place] [address] Medical Branch diphenhydrA 2021-10 Yes 25mg Take 25 mg [facility] MINE 25 mg 2-09 by mouth ity o f tablet 11:26: every 6 [place] 15 (six) Medical hours as Branch needed for Allergies. rivaroxaban 2021-10 Yes 15mg Take 15 mg [facility] 15 mg 2-09 by mouth ity of tablet 11:26: in the [place] 15 morning. Medical Branch aspirin 81 2021-10 Yes 81mg Take 81 mg U nivers mg chewable 2-09 by mouth ity of tablet 11:26: daily. Medical Branch diphenhydrA 2021-10 Yes 25mg Take 25 mg [facility] MINE 25 mg 2-09 by mouth ity o f tablet 11:26: every 6 [place] 15 (six) Medical hours as Branch needed for Allergies. rivaroxaban 2021-10 Yes 15mg Take 15 mg [facility] 15 mg 2-09 by mouth ity of tablet 11:26: in the [place] 15 morning. Medical Branch aspirin 81 2021-10 Yes 81mg Take 81 mg U nivers mg chewable 2-09 by mouth ity of tablet 11:26: daily. Medical Branch diphenhydrA 2021-10 Yes 25mg Take 25 mg [facility] MINE 25 mg 2-09 by mouth ity o f tablet 11:26: every 6 [place] [address] (six) Medical hours as Branch needed for Allergies. rivaroxaban 2021-10 Yes 15mg Take 15 mg [facility] 15 mg 2-09 by mouth ity of tablet 11:26: in the [place] 15 morning. Medical Branch aspirin 81 2021-10 Yes 81mg Take 81 mg U nivers mg chewable 2-09 by mouth ity of tablet 11:26: daily. [place] [address] Medical Branch diphenhydrA 2021-10 Yes 25mg Take 25 mg [facility] MINE 25 mg 2-09 by mouth ity o f tablet 11:26: every 6 [place] [address] (six) Medical hours as Branch needed for Allergies. rivaroxaban 2021-10 Yes 15mg Take 15 mg [facility] 15 mg 2-09 by mouth ity of tablet 11:26: in the [place] 15 morning. Medical Branch aspirin 81 2021-10 Yes 81mg Take 81 mg U nivers mg chewable 2-09 by mouth ity of tablet 11:26: daily. [place] [address] Medical Branch diphenhydrA 2021-10 Yes 25mg Take 25 mg [facility] MINE 25 mg 2-09 by mouth ity o f tablet 11:26: every 6 [place] 15 (six) Medical hours as Branch needed for Allergies. rivaroxaban 2021-10 Yes 15mg Take 15 mg [facility] 15 mg 2-09 by mouth ity of tablet 11:26: in the [place] 15 morning. Medical Branch aspirin 81 2021-10 Yes 81mg Take 81 mg U nivers mg chewable 2-09 by mouth ity of tablet 11:26: daily. [place] [address] Medical Branch diphenhydrA 2021-10 Yes 25mg Take 25 mg [facility] MINE 25 mg 2-09 by mouth ity o f tablet 11:26: every 6 [place] 15 (six) Medical hours as Branch needed for Allergies. rivaroxaban 2021-10 Yes 15mg Take 15 mg [facility] 15 mg 2-09 by mouth ity of tablet 11:26: in the [place] 15 morning. Medical Branch aspirin 81 2021-10 Yes 81mg Take 81 mg U nivers mg chewable 2-09 by mouth ity of tablet 11:26: daily. [place] [address] Medical Branch diphenhydrA 2021-10 Yes 25mg Take 25 mg [facility] MINE 25 mg 2-09 by mouth ity o f tablet 11:26: every 6 [place] [address] (six) Medical hours as Branch needed for Allergies. rivaroxaban 2021-10 Yes 15mg Take 15 mg [facility] 15 mg 2-09 by mouth ity of tablet 11:26: in the [place] 15 morning. Medical Branch aspirin 81 2021-10 Yes 81mg Take 81 mg U nivers mg chewable 2-09 by mouth ity of tablet 11:26: daily. [place] [address] Medical Branch diphenhydrA 2021-10 Yes 25mg Take 25 mg Univers MINE 25 mg 2-09 by mouth ity o f tablet 11:26: every 6 [place] [address] (six) Medical hours as Branch needed for Allergies. rivaroxaban 2021-10 Yes 15mg Take 15 mg [facility] 15 mg 2-09 by mouth ity of tablet 11:26: in the [place] 15 morning. Medical Branch aspirin 81 2021-10 Yes 81mg Take 81 mg U nivers mg chewable 2-09 by mouth ity of tablet 11:26: daily. [place] [address] Medical Branch diphenhydrA 2021-10 Yes 25mg Take 25 mg [facility] MINE 25 mg 2-09 by mouth ity o f tablet 11:26: every 6 [place] 15 (six) Medical hours as Branch needed for Allergies. rivaroxaban 2021-10 Yes 15mg Take 15 mg [facility] 15 mg 2-09 by mouth ity of tablet 11:26: in the [place] 15 morning. Medical Branch aspirin 81 2021-10 Yes 81mg Take 81 mg U nivers mg chewable 2-09 by mouth ity of tablet 11:26: daily. [place] 15 Medical Branch diphenhydrA 2021-10 Yes 25mg Take 25 mg [facility] MINE 25 mg 2-09 by mouth ity o f tablet 11:26: every 6 [place] 15 (six) Medical hours as Branch needed for Allergies. rivaroxaban 2021-10 Yes 15mg Take 15 mg [facility] 15 mg 2-09 by mouth ity of tablet 11:26: in the [place] 15 morning. Medical Branch B 2021-10 Yes Take by [facility] INFANTIS/B 2-06 mouth. ity of ANI/B HAMLET/B 14:47: [place] [facility] 49 Medical (PROBIOTIC Branch 4X ORAL) aspirin 81 2021-10 Yes 81mg Take 81 mg U nivers mg chewable 2-06 by mouth ity of tablet 14:47: daily. [place] [address] Medical Branch vitamin C 2021-10 Yes 1000mg Take 1,000 Univers with stefany 2-06 mg by ity of hips 1,000 14:47: mouth [place] mg tablet 49 daily. Medical Branch flaxseed 2021-10 Yes 1{tbl} Take 1 Unive rs oil (OMEGA 2-06 tablet by ity of 3 ORAL) 14:47: mouth [place] 49 daily. Medical Branch rivaroxaban 2021-10 Yes 15mg Take 15 mg Univers (XARELTO) 2-06 by mouth ity of 15 mg 14:47: in the [place] tablet 49 morning. Medical Branch ceFAZolin 2021-10- 1000mg Unive rs (ANCEF) 11-06 11-24 ity of 1,000 mg in 23:00: 10:59 [place] water for 00 :00 Medical injection, Branch sterile 10 mL SIVP syringe vitamin C 2021-10 Yes 1000mg Take 1,000 [facility] with stefany 1-02 mg by ity of hips 1,000 07:26: mouth [place] mg tablet 57 daily. Medical Branch diphenhydrA 2021-10 Yes 25mg Take 25 mg [facility] MINE 25 mg 1-02 by mouth ity o f tablet 07:26: every 6 [place] 57 (six) Medical hours as Branch needed for Allergies. flaxseed 2021-10 Yes 1{tbl} Take 1 Unive rs oil (OMEGA 1-02 tablet by ity of 3 ORAL) 07:26: mouth. [place] [address] Medical Branch vitamin C 2021-10 Yes 1000mg Take 1,000 [facility] with stefany 1-02 mg by ity of hips 1,000 07:26: mouth [place] mg tablet 57 daily. Medical Branch diphenhydrA 2021-10 Yes 25mg Take 25 mg [facility] MINE 25 mg 1-02 by mouth ity o f tablet 07:26: every 6 [place] [address] (six) Medical hours as Branch needed for Allergies. flaxseed 2021-10 Yes 1{tbl} Take 1 Unive rs oil (OMEGA 1-02 tablet by ity of 3 ORAL) 07:26: mouth. [place] [address] Medical Branch vitamin C 2021-10 Yes 1000mg Take 1,000 [facility] with stefany 1-02 mg by ity of hips 1,000 07:26: mouth [place] mg tablet 57 daily. Medical Branch diphenhydrA 2021-10 Yes 25mg Take 25 mg [facility] MINE 25 mg 1-02 by mouth ity o f tablet 07:26: every 6 [place] [address] (six) Medical hours as Branch needed for Allergies. flaxseed 2021-10 Yes 1{tbl} Take 1 Unive rs oil (OMEGA 1-02 tablet by ity of 3 ORAL) 07:26: mouth. [place] [address] Medical Branch vitamin C 2021-10 Yes 1000mg Take 1,000 [facility] with stefany 1-02 mg by ity of hips 1,000 07:26: mouth [place] mg tablet 57 daily. Medical Branch diphenhydrA 2021-10 Yes 25mg Take 25 mg [facility] MINE 25 mg 1-02 by mouth ity o f tablet 07:26: every 6 [place] [address] (six) Medical hours as Branch needed for Allergies. flaxseed 2021-10 Yes 1{tbl} Take 1 Unive rs oil (OMEGA 1-02 tablet by ity of 3 ORAL) 07:26: mouth. [place] [address] Medical Branch vitamin C 2021-10 Yes 1000mg Take 1,000 [facility] with stefany 1-02 mg by ity of hips 1,000 07:26: mouth [place] mg tablet 57 daily. Medical Branch diphenhydrA 2021-10 Yes 25mg Take 25 mg [facility] MINE 25 mg 1-02 by mouth ity o f tablet 07:26: every 6 [place] [address] (six) Medical hours as Branch needed for Allergies. flaxseed 2021-10 Yes 1{tbl} Take 1 Unive rs oil (OMEGA 1-02 tablet by ity of 3 ORAL) 07:26: mouth. [address] Branch vitamin C 2021-10 Yes 1000mg Take 1,000 [facility] with stefany 1-02 mg by ity of hips 1,000 07:26: mouth [place] mg tablet 57 daily. Medical Branch diphenhydrA 2021-10 Yes 25mg Take 25 mg [facility] MINE 25 mg 1-02 by mouth ity o f tablet 07:26: every 6 [place] [address] (six) Medical hours as Branch needed for Allergies. flaxseed 2021-10 Yes 1{tbl} Take 1 Unive rs oil (OMEGA 1-02 tablet by ity of 3 ORAL) 07:26: mouth. [address] vitamin C 2021-10 Yes 1000mg Take 1,000 [facility] with stefany 1-02 mg by ity of hips 1,000 07:26: mouth [place] mg tablet 57 daily. Medical Branch diphenhydrA 2021-10 Yes 25mg Take 25 mg [facility] MINE 25 mg 1-02 by mouth ity o f tablet 07:26: every 6 [place] [address] (six) Medical hours as Branch needed for Allergies. flaxseed 2021-10 Yes 1{tbl} Take 1 Unive rs oil (OMEGA 1-02 tablet by ity of 3 ORAL) 07:26: mouth. [address] Branch vitamin C 2021-10 Yes 1000mg Take 1,000 Univers with stefany 1-02 mg by ity of hips 1,000 07:26: mouth [place] mg tablet 57 daily. Medical Branch diphenhydrA 2021-10 Yes 25mg Take 25 mg [facility] MINE 25 mg 1-02 by mouth ity o f tablet 07:26: every 6 [place] [address] (six) Medical hours as Branch needed for Allergies. flaxseed 2021-10 Yes 1{tbl} Take 1 Unive rs oil (OMEGA 1-02 tablet by ity of 3 ORAL) 07:26: mouth. [place] [address] Medical Branch diphenhydrA 2021-10 Yes 25mg Take 25 mg [facility] MINE 25 mg 1-02 by mouth ity o f tablet 07:26: every 6 [place] [address] (six) Medical hours as Branch needed for Allergies. GLIMEPIRIDE 2021-10 Yes [id number] TAKE 1 Univers 1 mg tablet 0-06 TABLET BY ity of 00:00: MOUTH [place] EVERY DAY Medical Branch GLIMEPIRIDE 2021-10 Yes [id number] TAKE 1 [facility] 1 mg tablet 0-06 TABLET BY ity of 00:00: MOUTH [place] EVERY DAY Medical Branch GLIMEPIRIDE 2021-10 Yes [id number] TAKE 1 [facility] 1 mg tablet 0-06 TABLET BY [facility] 00:00: MOUTH EVERY DAY [facility] GLIMEPIRIDE 2021-10 Yes [id number] TAKE 1 [facility] 1 mg tablet 0-06 TABLET BY [facility] of 00:00: MOUTH [place] EVERY DAY [facility] GLIMEPIRIDE 2021-10 Yes [id number] TAKE 1 [facility] 1 mg tablet 0-06 TABLET BY [facility] of 00:00: MOUTH [place] EVERY DAY [facility] GLIMEPIRIDE 2021-10 Yes [id number] TAKE 1 [facility] 1 mg tablet 0-06 TABLET BY [facility] of 00:00: MOUTH [place] EVERY DAY [facility] GLIMEPIRIDE 2021-10 Yes [id number] TAKE 1 [facility] 1 mg tablet 0-06 TABLET BY [facility] of 00:00: MOUTH [place] DAY [facility] GLIMEPIRIDE 2021-10 Yes [id number] TAKE 1 [facility] 1 mg tablet 0-06 TABLET BY [facility] of 00:00: MOUTH [place] DAY [facility] GLIMEPIRIDE 2021-10 Yes [id number] TAKE 1 [facility] 1 mg tablet 0-06 TABLET BY [facility] of 00:00: MOUTH [place] EVERY DAY [facility] GLIMEPIRIDE 2021-10 Yes [id number] TAKE 1 [facility] 1 mg tablet 0-06 TABLET BY [facility] of 00:00: MOUTH [place] EVERY DAY [facility] GLIMEPIRIDE 2021-10 Yes [id number] TAKE 1 [facility] 1 mg tablet 0-06 TABLET BY [facility] of 00:00: MOUTH [place] EVERY DAY [facility] GLIMEPIRIDE 2021-10 Yes [id number] TAKE 1 [facility] 1 mg tablet 0-06 TABLET BY [facility] of 00:00: MOUTH [place] EVERY DAY [facility] GLIMEPIRIDE 2021-10 Yes [id number] TAKE 1 [facility] 1 mg tablet 0-06 TABLET BY [facility] of 00:00: MOUTH [place] EVERY DAY [facility] GLIMEPIRIDE 2021-10 Yes [id number] TAKE 1 [facility] 1 mg tablet 0-06 TABLET BY [facility] of 00:00: MOUTH [place] 00 EVERY DAY [facility] GLIMEPIRIDE 2021-2021- No [id number] TAKE 1 [facility] 1 mg tablet 0-06 12-30 TABLET BY it y of 00:00: 00:00 MOUTH [place] 00 :00 EVERY DAY [facility] metoprolol 0 Yes TAKE 1 [facility] tartrate 50 6-10 TABLET BY [facility] of mg tablet 00:00: MOUTH [place] 00 EVERY DAY Medical WITH FOOD Branch FOR 90 DAYS metoprolol 0 Yes TAKE 1 [facility] rs tartrate 50 6-10 TABLET BY [facility] of mg tablet 00:00: MOUTH 00 EVERY DAY Medical WITH FOOD Branch FOR 90 DAYS metoprolol 0 Yes TAKE 1 [facility] rs tartrate 50 6-10 TABLET BY [facility] of mg tablet 00:00: MOUTH 00 EVERY DAY Medical WITH FOOD Branch FOR 90 DAYS metoprolol 0 Yes TAKE 1 [facility] rs tartrate 50 6-10 TABLET BY [facility] of mg tablet 00:00: MOUTH [place] 00 EVERY DAY Medical WITH FOOD Branch FOR 90 DAYS metoprolol 0 Yes TAKE 1 [facility] rs tartrate 50 6-10 TABLET BY [facility] of mg tablet 00:00: MOUTH 00 EVERY DAY Medical WITH FOOD Branch FOR 90 DAYS metoprolol 0 Yes TAKE 1 [facility] tartrate 50 6-10 TABLET BY [facility] mg tablet 00:00: MOUTH 00 EVERY DAY Medical WITH FOOD Branch FOR 90 DAYS metoprolol 0 Yes TAKE 1 [facility] rs tartrate 50 6-10 TABLET BY [facility] of mg tablet 00:00: MOUTH [place] 00 EVERY DAY Medical WITH FOOD Branch FOR 90 DAYS metoprolol 0 Yes TAKE 1 [facility] rs tartrate 50 6-10 TABLET BY [facility] of mg tablet 00:00: MOUTH [place] 00 EVERY DAY Medical WITH FOOD Branch FOR 90 DAYS metoprolol 0 Yes TAKE 1 [facility] rs tartrate 50 6-10 TABLET BY [facility] of mg tablet 00:00: MOUTH [place] 00 EVERY DAY Medical WITH FOOD Branch FOR 90 DAYS metoprolol 0 Yes TAKE 1 [facility] rs tartrate 50 6-10 TABLET BY [facility] of mg tablet 00:00: MOUTH [place] 00 EVERY DAY Medical WITH FOOD Branch FOR 90 DAYS metoprolol 0 Yes TAKE 1 [facility] rs tartrate 50 6-10 TABLET BY [facility] of mg tablet 00:00: MOUTH EVERY DAY Medical WITH FOOD Branch FOR 90 DAYS metoprolol 0 Yes TAKE 1 [facility] tartrate 50 6-10 TABLET BY [facility] of mg tablet 00:00: MOUTH EVERY DAY Medical WITH FOOD Branch FOR 90 DAYS metoprolol 0 Yes TAKE 1 [facility] rs tartrate 50 6-10 TABLET BY [facility] of mg tablet 00:00: MOUTH EVERY DAY Medical WITH FOOD Branch FOR 90 DAYS metoprolol 0 Yes TAKE 1 [facility] tartrate 50 6-10 TABLET BY [facility] mg tablet 00:00: MOUTH EVERY DAY Medical WITH FOOD Branch FOR 90 DAYS metoprolol 0 Yes TAKE 1 [facility] tartrate 50 6-10 TABLET BY [facility] of mg tablet 00:00: MOUTH EVERY DAY Medical WITH FOOD Branch FOR 90 DAYS metoprolol 0 Yes TAKE 1 [facility] tartrate 50 6-10 TABLET BY [facility] mg tablet 00:00: MOUTH EVERY DAY Medical WITH FOOD Branch FOR 90 DAYS metoprolol 0 Yes TAKE 1 [facility] tartrate 50 6-10 TABLET BY [facility] mg tablet 00:00: MOUTH EVERY DAY Medical WITH FOOD Branch FOR 90 DAYS metoprolol 0 Yes TAKE 1 [facility] tartrate 50 6-10 TABLET BY [facility] mg tablet 00:00: MOUTH EVERY DAY Medical WITH FOOD Branch FOR 90 DAYS metoprolol 0 Yes TAKE 1 [facility] tartrate 50 6-10 TABLET BY [facility] of mg tablet 00:00: MOUTH EVERY DAY Medical WITH FOOD Branch FOR 90 DAYS metoprolol 0 Yes TAKE 1 [facility] tartrate 50 6-10 TABLET BY [facility] of mg tablet 00:00: MOUTH EVERY DAY Medical WITH FOOD Branch FOR 90 DAYS metoprolol 0 Yes TAKE 1 [facility] tartrate 50 6-10 TABLET BY [facility] of mg tablet 00:00: MOUTH EVERY DAY Medical WITH FOOD Branch FOR 90 DAYS metoprolol 0 Yes TAKE 1 [facility] tartrate 50 6-10 TABLET BY [facility] of mg tablet 00:00: MOUTH EVERY DAY Medical WITH FOOD Branch FOR 90 DAYS metoprolol 0 Yes TAKE 1 [facility] tartrate 50 6-10 TABLET BY [facility] of mg tablet 00:00: MOUTH EVERY DAY Medical WITH FOOD Branch FOR 90 DAYS metoprolol 0 Yes TAKE 1 [facility] tartrate 50 6-10 TABLET BY [facility] of mg tablet 00:00: MOUTH EVERY DAY Medical WITH FOOD Branch FOR 90 DAYS metoprolol 0 Yes TAKE 1 [facility] rs tartrate 50 6-10 TABLET BY [facility] of mg tablet 00:00: MOUTH EVERY DAY Medical WITH FOOD Branch FOR 90 DAYS metoprolol 0 Yes TAKE 1 [facility] tartrate 50 6-10 TABLET BY [facility] of mg tablet 00:00: MOUTH EVERY DAY Medical WITH FOOD Branch FOR 90 DAYS metoprolol 0 Yes TAKE 1 [facility] tartrate 50 6-10 TABLET BY [facility] mg tablet 00:00: MOUTH EVERY DAY Medical WITH FOOD Branch FOR 90 DAYS metoprolol 0 Yes TAKE 1 [facility] tartrate 50 6-10 TABLET BY [facility] of mg tablet 00:00: MOUTH EVERY DAY Medical WITH FOOD Branch FOR 90 DAYS metoprolol 0 Yes TAKE 1 [facility] tartrate 50 6-10 TABLET BY [facility] of mg tablet 00:00: MOUTH EVERY DAY Medical WITH FOOD Branch FOR 90 DAYS metoprolol 0 Yes TAKE 1 [facility] rs tartrate 50 6-10 TABLET BY [facility] of mg tablet 00:00: [facility] EVERY DAY Medical WITH FOOD Branch FOR 90 DAYS metoprolol 0 Yes TAKE 1 [facility] rs tartrate 50 6-10 TABLET BY ity of mg tablet 00:00: MOUTH EVERY DAY Medical WITH FOOD Branch FOR 90 DAYS metoprolol 0 Yes TAKE 1 [facility] rs tartrate 50 6-10 TABLET BY ity of mg tablet 00:00: MOUTH [place] EVERY DAY Medical WITH FOOD Branch FOR 90 DAYS metoprolol 0 Yes TAKE 1 [facility] rs tartrate 50 6-10 TABLET BY ity of mg tablet 00:00: MOUTH [place] EVERY DAY Medical WITH FOOD Branch FOR 90 DAYS metoprolol 0 Yes TAKE 1 [facility] rs tartrate 50 6-10 TABLET BY ity of mg tablet 00:00: MOUTH [place] 00 EVERY DAY Medical WITH FOOD Branch FOR 90 DAYS metoprolol 0 Yes TAKE 1 [facility] rs tartrate 50 6-10 TABLET BY [facility] of mg tablet 00:00: MOUTH [place] EVERY DAY Medical WITH FOOD Branch FOR 90 DAYS metoprolol 2021-0 Yes TAKE 1 [facility] rs tartrate 50 6-10 TABLET BY it[facility] of mg tablet 00:00: MOUTH [place] EVERY DAY Medical WITH FOOD Branch FOR 90 DAYS metoprolol 0 Yes TAKE 1 [facility] rs tartrate 50 6-10 TABLET BY [facility] of mg tablet 00:00: MOUTH [place] EVERY DAY Medical WITH FOOD Branch FOR 90 DAYS metoprolol 0 Yes TAKE 1 [facility] rs tartrate 50 6-10 TABLET BY it[facility] of mg tablet 00:00: MOUTH [place] EVERY DAY Medical WITH FOOD Branch FOR 90 DAYS metoprolol 0 Yes TAKE 1 [facility] rs tartrate 50 6-10 TABLET BY ity of mg tablet 00:00: MOUTH [place] EVERY DAY Medical WITH FOOD Branch FOR 90 DAYS baclofen 10 Yes 10mg Take 10 mg [facility] mg tablet - by mouth ity of 00:00: at [place] [address] bedtime. Medical Branch baclofen 10 Yes 10mg Take 10 mg [facility] mg tablet - by mouth ity of 00:00: at [place] [address] bedtime. [facility] Branch baclofen 10 0 Yes 10mg Take 10 mg [facility] mg tablet - by mouth ity of 00:00: at [place] [address] bedtime. [facility] Branch baclofen 10 0 Yes 10mg Take 10 mg [facility] mg tablet - by mouth ity of 00:00: at [place] [address] bedtime. [facility] baclofen 10 0 Yes 10mg Take 10 mg [facility] mg tablet -09 by mouth ity of 00:00: at [place] [address] bedtime. [facility] Branch baclofen 10 0 Yes 10mg Take 10 mg [facility] mg tablet 6-09 by mouth ity of 00:00: at [place] [address] bedtime. Medical Branch baclofen 10 0 Yes 10mg Take 10 mg [facility] mg tablet 6-09 by mouth ity of 00:00: at [place] [address] bedtime. [facility] Branch baclofen 10 0 Yes 10mg Take 10 mg [facility] mg tablet 6-09 by mouth ity of 00:00: at [place] [address] bedtime. [facility] Branch baclofen 10 2021-0 Yes 10mg Take 10 mg [facility] mg tablet 6-09 by mouth ity of 00:00: at [place] [address] bedtime. [facility] Branch baclofen 10 2021-0 Yes 10mg Take 10 mg [facility] mg tablet 6-09 by mouth ity of 00:00: at [place] [address] bedtime. [facility] Branch baclofen 10 2021-0 Yes 10mg Take 10 mg [facility] mg tablet 6-09 by mouth ity of 00:00: at [place] [address] bedtime. Medical Branch baclofen 10 2021-0 Yes 10mg Take 10 mg [facility] mg tablet 6-09 by mouth ity of 00:00: at [place] [address] bedtime. [facility] Branch baclofen 10 2021-0 Yes 10mg Take 10 mg [facility] mg tablet 6-09 by mouth ity of 00:00: at [place] [address] bedtime. [facility] Branch baclofen 10 2021-0 Yes 10mg Take 10 mg [facility] mg tablet 6-09 by mouth ity of 00:00: at [place] [address] bedtime. [facility] Branch baclofen 10 2021-0 Yes 10mg Take 10 mg [facility] mg tablet 6-09 by mouth ity of 00:00: at [place] [address] bedtime. [facility] Branch baclofen 10 2021-0 Yes 10mg Take 10 mg [facility] mg tablet 6-09 by mouth ity of 00:00: at [place] [address] bedtime. [facility] Branch baclofen 10 2021-0 Yes 10mg Take 10 mg [facility] mg tablet 6-09 by mouth ity of 00:00: at [place] [address] bedtime. [facility] Branch baclofen 10 2021-0 Yes 10mg Take 10 mg [facility] mg tablet 6-09 by mouth ity of 00:00: at [place] [address] bedtime. Medical Branch baclofen 10 2021-0 Yes 10mg Take 10 mg [facility] mg tablet 6-09 by mouth ity of 00:00: at [place] [address] bedtime. Medical Branch baclofen 10 2021-0 Yes 10mg Take 10 mg [facility] mg tablet 6-09 by mouth ity of 00:00: at [place] [address] bedtime. Medical Branch baclofen 10 2021-0 Yes 10mg Take 10 mg [facility] mg tablet 6-09 by mouth ity of 00:00: at [place] [address] bedtime. Medical Branch baclofen 10 2021-0 Yes 10mg Take 10 mg [facility] mg tablet 6-09 by mouth ity of 00:00: at [place] [address] bedtime. Medical Branch baclofen 10 2021-0 Yes 10mg Take 10 mg [facility] mg tablet 6-09 by mouth ity of 00:00: at [place] [address] bedtime. Medical Branch baclofen 10 2021-0 Yes 10mg Take 10 mg [facility] mg tablet 6-09 by mouth ity of 00:00: at [place] [address] bedtime. Medical Branch baclofen 10 2021-0 Yes 10mg Take 10 mg [facility] mg tablet 6-09 by mouth ity of 00:00: at [place] [address] bedtime. [facility] Branch baclofen 10 2021-0 Yes 10mg Take 10 mg [facility] mg tablet 6- by mouth ity of 00:00: at [place] [address] bedtime. [facility] Branch baclofen 10 2021-0 Yes 10mg Take 10 mg [facility] mg tablet 6-09 by mouth ity of 00:00: at [place] [address] bedtime. [facility] Branch baclofen 10 2021-0 Yes 10mg Take 10 mg [facility] mg tablet 6- by mouth ity of 00:00: at [place] [address] bedtime. [facility] Branch baclofen 10 2021-0 Yes 10mg Take 10 mg [facility] mg tablet 6- by mouth ity of 00:00: at [place] [address] bedtime. Medical Branch baclofen 10 2021-0 Yes 10mg Take 10 mg [facility] mg tablet 6-09 by mouth ity of 00:00: at [place] [address] bedtime. [facility] Branch baclofen 10 2021-0 Yes 10mg Take 10 mg [facility] mg tablet 6-09 by mouth ity of 00:00: at [place] [address] bedtime. [facility] Branch baclofen 10 2021-0 Yes 10mg Take 10 mg [facility] mg tablet 6-09 by mouth ity of 00:00: at [place] [address] bedtime. [facility] Branch baclofen 10 2021-0 Yes 10mg Take 10 mg [facility] mg tablet 6-09 by mouth ity of 00:00: at [place] [address] bedtime. [facility] Branch baclofen 10 2021-0 Yes 10mg Take 10 mg [facility] mg tablet 6-09 by mouth ity of 00:00: at [place] [address] bedtime. [facility] Branch baclofen 10 2021-0 Yes 10mg Take 10 mg [facility] mg tablet 6-09 by mouth ity of 00:00: at [place] [address] bedtime. [facility] Branch baclofen 10 2021-0 Yes 10mg Take 10 mg [facility] mg tablet 6-09 by mouth ity of 00:00: at [place] 00 bedtime. [facility] Branch baclofen 10 0 Yes 10mg Take 10 mg [facility] mg tablet 03-23 by mouth ity of 00:00: at [place] 00 bedtime. [facility] baclofen 10 0 Yes 10mg Take 10 mg [facility] mg tablet 03-23 by mouth ity of 00:00: at [place] 00 bedtime. [facility] Branch baclofen 10 0 Yes 10mg Take 10 mg [facility] mg tablet 03-23 by mouth ity of 00:00: at [place] 00 bedtime. Medical Branch LINZESS 145 Yes 1{capsu Take 1 U nivers mcg capsule 5-15 le} capsule by it y of 00:00: mouth 00 daily. [facility] Branch LINZESS 145 0 Yes 1{capsu Take 1 U nivers mcg capsule 5-15 le} capsule by it y of 00:00: mouth 00 daily. Medical Branch LINZESS 145 Yes 1{capsu Take 1 U nivers mcg capsule 5-15 le} capsule by it y of 00:00: mouth [place] 00 daily. Medical Branch LINZESS 145 Yes 1{capsu Take 1 U nivers mcg capsule 5-15 le} capsule by it y of 00:00: mouth 00 daily. [facility] Branch LINZESS 145 0 Yes 1{capsu Take 1 U nivers mcg capsule 5-15 le} capsule by it y of 00:00: mouth 00 daily. [facility] Branch LINZESS 145 0 Yes 1{capsu Take 1 U nivers mcg capsule 5-15 le} capsule by it y of 00:00: mouth [place] 00 daily. [facility] Branch LINZESS 145 0 Yes 1{capsu Take 1 U nivers mcg capsule 5-15 le} capsule by it y of 00:00: mouth [place] 00 daily. [facility] Branch LINZESS 145 0 Yes 1{capsu Take 1 U nivers mcg capsule 5-15 le} capsule by it y of 00:00: mouth [place] 00 daily. Medical Branch LINZESS 145 2021-0 Yes 1{capsu Take 1 U nivers mcg capsule 5-15 le} capsule by it y of 00:00: mouth [place] 00 daily. Medical [facility] LINZESS 145 2022-0 Yes 1{capsu Take 1 U nivers mcg capsule 5-15 le} capsule by it y of 00:00: mouth [place] 00 daily. Medical Branch LINZESS 145 2021-0 Yes 1{capsu Take 1 U nivers mcg capsule 5-15 le} capsule by it y of 00:00: mouth [place] 00 daily. Medical Branch LINZESS 145 2021-0 Yes 1{capsu Take 1 U nivers mcg capsule 5-15 le} capsule by it y of 00:00: mouth [place] 00 daily. Medical Branch LINZESS 145 2021-0 Yes 1{capsu Take 1 U nivers mcg capsule 5-15 le} capsule by it y of 00:00: mouth [place] 00 daily. [facility] LINZESS 145 2021-0 Yes 1{capsu Take 1 U nivers mcg capsule 5-15 le} capsule by it y of 00:00: mouth [place] 00 daily. Medical Branch LINZESS 145 2021-0 Yes 1{capsu Take 1 U nivers mcg capsule 5-15 le} capsule by it y of 00:00: mouth [place] 00 daily. [facility] LINZESS 145 0 Yes 1{capsu Take 1 U nivers mcg capsule 5-15 le} capsule by it y of 00:00: mouth [place] 00 daily. Medical [facility] LINZESS 145 2021-0 Yes 1{capsu Take 1 U nivers mcg capsule 5-15 le} capsule by it y of 00:00: mouth [place] 00 daily. Medical [facility] LINZESS 145 2021-0 Yes 1{capsu Take 1 U nivers mcg capsule 5-15 le} capsule by it y of 00:00: mouth [place] 00 daily. Medical Branch LINZESS 145 2021-0 Yes 1{capsu Take 1 U nivers mcg capsule 5-15 le} capsule by it y of 00:00: mouth [place] 00 daily. [facility] LINZESS 145 2021-0 Yes 1{capsu Take 1 U nivers mcg capsule 5-15 le} capsule by it y of 00:00: mouth [place] 00 daily. Medical Branch LINZESS 145 2021-0 Yes 1{capsu Take 1 U nivers mcg capsule 5-15 le} capsule by it y of 00:00: mouth [place] 00 daily. Medical Branch LINZESS 145 2021-0 Yes 1{capsu Take 1 U nivers mcg capsule 5-15 le} capsule by it y of 00:00: mouth [place] 00 daily. [facility] LINZESS 145 2021-0 Yes 1{capsu Take 1 U nivers mcg capsule 5-15 le} capsule by it y of 00:00: mouth [place] 00 daily. Medical Branch LINZESS 145 2021-0 Yes 1{capsu Take 1 U nivers mcg capsule 5-15 le} capsule by it y of 00:00: mouth [place] 00 daily. [facility] Branch LINZESS 145 2021-0 Yes 1{capsu Take 1 U nivers mcg capsule 5-15 le} capsule by it y of 00:00: mouth [place] 00 daily. [facility] Branch LINZESS 145 2021-0 Yes 1{capsu Take 1 U nivers mcg capsule 5-15 le} capsule by it y of 00:00: mouth [place] 00 daily. [facility] LINZESS 145 2021-0 Yes 1{capsu Take 1 U nivers mcg capsule 5-15 le} capsule by it y of 00:00: mouth [place] 00 daily. [facility] Branch LINZESS 145 2021-0 Yes 1{capsu Take 1 U nivers mcg capsule 5-15 le} capsule by it y of 00:00: mouth [place] 00 daily. [facility] LINZESS 145 2021-0 Yes 1{capsu Take 1 U nivers mcg capsule 5-15 le} capsule by it y of 00:00: mouth [place] 00 daily. [facility] Branch LINZESS 145 2021-0 Yes 1{capsu Take 1 U nivers mcg capsule 5-15 le} capsule by it y of 00:00: mouth [place] 00 daily. [facility] Branch LINZESS 145 2021-0 Yes 1{capsu Take 1 U nivers mcg capsule 5-15 le} capsule by it y of 00:00: mouth [place] 00 daily. [facility] LINZESS 145 2021-0 Yes 1{capsu Take 1 U nivers mcg capsule 5-15 le} capsule by it y of 00:00: mouth [place] 00 daily. [facility] Branch LINZESS 145 2021-0 Yes 1{capsu Take 1 U nivers mcg capsule 5-15 le} capsule by it y of 00:00: mouth [place] 00 daily. [facility] Branch LINZESS 145 2021-0 Yes 1{capsu Take 1 U nivers mcg capsule 5-15 le} capsule by it y of 00:00: mouth daily. Medical Branch LINZESS 145 2-0 Yes 1{capsu Take 1 U nivers mcg capsule 5-15 le} capsule by it y of 00:00: mouth daily. Medical Branch LINZESS 145 2021-0 Yes 1{capsu Take 1 U nivers mcg capsule 5-15 le} capsule by it y of 00:00: mouth daily. Medical Branch LINZESS 145 2021-0 Yes 1{capsu Take 1 U nivers mcg capsule 5-15 le} capsule by it y of 00:00: mouth daily. Medical Branch LINZESS 145 2021-0 Yes 1{capsu Take 1 U nivers mcg capsule 5-15 le} capsule by it y of 00:00: mouth daily. Medical Branch LINZESS 145 2-0 Yes 1{capsu Take 1 U nivers mcg capsule 5-15 le} capsule by it y of 00:00: mouth daily. Medical Branch furosemide 2022-0 Yes 40mg Take 40 mg U nivers 40 mg 4-28 by mouth ity of tablet 00:00: daily. [place] [facility] furosemide 2022-0 Yes 40mg Take 40 mg U nivers 40 mg 4-28 by mouth ity of tablet 00:00: daily. [place] [facility] furosemide 2022-0 Yes 40mg Take 40 mg U nivers 40 mg 4-28 by mouth ity of tablet 00:00: daily. [place] [facility] furosemide 2022-0 Yes 40mg Take 40 mg U nivers 40 mg 4-28 by mouth ity of tablet 00:00: daily. [place] [facility] furosemide 2022-0 Yes 40mg Take 40 mg U nivers 40 mg 4-28 by mouth ity of tablet 00:00: daily. [place] [facility] furosemide 2022-0 Yes 40mg Take 40 mg U nivers 40 mg 4-28 by mouth ity of tablet 00:00: daily. [place] [facility] furosemide 2022-0 Yes 40mg Take 40 mg U nivers 40 mg 4-28 by mouth ity of tablet 00:00: daily. [place] [facility] furosemide 2022-0 Yes 40mg Take 40 mg U nivers 40 mg 4-28 by mouth ity of tablet 00:00: daily. [place] [address] Medical Branch furosemide 2022-0 Yes 40mg Take 40 mg U nivers 40 mg 4-28 by mouth ity of tablet 00:00: daily. [place] [facility] furosemide 2022-0 Yes 40mg Take 40 mg U nivers 40 mg 4-28 by mouth ity of tablet 00:00: daily. [place] [address] Medical Branch furosemide 2022-0 Yes 40mg Take 40 mg U nivers 40 mg 4-28 by mouth ity of tablet 00:00: daily. [place] [facility] furosemide 2022-0 Yes 40mg Take 40 mg U nivers 40 mg 4-28 by mouth ity of tablet 00:00: daily. [place] [address] Medical Branch furosemide 2022-0 Yes 40mg Take 40 mg U nivers 40 mg 4-28 by mouth ity of tablet 00:00: in the [place] morning Medical and 40 mg Branch in the evening. furosemide 2022-0 Yes 40mg Take 40 mg U nivers 40 mg 4-28 by mouth ity of tablet 00:00: in the [place] morning Medical and 40 mg Branch in the evening. furosemide 2022-0 Yes 40mg Take 40 mg U nivers 40 mg 4-28 by mouth ity of tablet 00:00: in the [place] morning Medical and 40 mg Branch in the evening. furosemide 2022-0 Yes 40mg Take 40 mg U nivers 40 mg 4-28 by mouth ity of tablet 00:00: in the [place] morning Medical and 40 mg Branch in the evening. furosemide 2022-0 Yes 40mg Take 40 mg U nivers 40 mg 4-28 by mouth ity of tablet 00:00: in the [place] morning Medical and 40 mg Branch in the evening. furosemide 2022-0 Yes 40mg Take 40 mg U nivers 40 mg 4-28 by mouth ity of tablet 00:00: in the [place] morning Medical and 40 mg Branch in the evening. furosemide 2022-0 Yes 40mg Take 40 mg U nivers 40 mg 4-28 by mouth ity of tablet 00:00: in the [place] morning Medical and 40 mg Branch in the evening. furosemide 2022-0 Yes 40mg Take 40 mg U nivers 40 mg 4-28 by mouth ity of tablet 00:00: in the [place] [address] morning Medical and 40 mg Branch in the evening. furosemide 2022-0 Yes 40mg Take 40 mg U nivers 40 mg 4-28 by mouth ity of tablet 00:00: in the [place] morning Medical and 40 mg Branch in the evening. furosemide 2022-0 Yes 40mg Take 40 mg U nivers 40 mg 4-28 by mouth ity of tablet 00:00: in the [place] morning Medical and 40 mg Branch in the evening. furosemide 2022-0 Yes 40mg Take 40 mg U nivers 40 mg 4-28 by mouth ity of tablet 00:00: in the [place] morning Medical and 40 mg Branch in the evening. furosemide 2022-0 Yes 40mg Take 40 mg U nivers 40 mg 4-28 by mouth ity of tablet 00:00: in the [place] morning Medical and 40 mg Branch in the evening. furosemide 2022-0 Yes 40mg Take 40 mg U nivers 40 mg 4-28 by mouth ity of tablet 00:00: in the [place] morning Medical and 40 mg Branch in the evening. furosemide 2022-0 Yes 40mg Take 40 mg U nivers 40 mg 4-28 by mouth ity of tablet 00:00: in the [place] morning Medical and 40 mg Branch in the evening. furosemide 2022-0 Yes 40mg Take 40 mg U nivers 40 mg 4-28 by mouth ity of tablet 00:00: in the [place] morning Medical and 40 mg Branch in the evening. furosemide 2022-0 Yes 40mg Take 40 mg U nivers 40 mg 4-28 by mouth ity of tablet 00:00: in the [place] morning Medical and 40 mg Branch in the evening. furosemide 2022-0 Yes 40mg Take 40 mg U nivers 40 mg 4-28 by mouth ity of tablet 00:00: in the [place] morning Medical and 40 mg Branch in the evening. furosemide 2022-0 Yes 40mg Take 40 mg U nivers 40 mg 4-28 by mouth ity of tablet 00:00: in the [place] morning Medical and 40 mg Branch in the evening. furosemide 2022-0 Yes 40mg Take 40 mg U nivers 40 mg 4-28 by mouth ity of tablet 00:00: in the [place] morning Medical and 40 mg Branch in the evening. furosemide 2022-0 Yes 40mg Take 40 mg U nivers 40 mg 4-28 by mouth ity of tablet 00:00: in the [place] morning Medical and 40 mg Branch in the evening. furosemide 2022-0 Yes 40mg Take 40 mg U nivers 40 mg 4-28 by mouth ity of tablet 00:00: in the [place] morning Medical and 40 mg Branch in the evening. furosemide 2022-0 Yes 40mg Take 40 mg U nivers 40 mg 4-28 by mouth ity of tablet 00:00: in the [place] morning Medical and 40 mg Branch in the evening. furosemide 2022-0 Yes 40mg Take 40 mg U nivers 40 mg 4-28 by mouth ity of tablet 00:00: in the [place] morning Medical and 40 mg Branch in the evening. furosemide 2022-0 Yes 40mg Take 40 mg U nivers 40 mg 4-28 by mouth ity of tablet 00:00: in the [place] morning Medical and 40 mg Branch in the evening. furosemide 2022-0 Yes 40mg Take 40 mg U nivers 40 mg 4-28 by mouth ity of tablet 00:00: in the [place] morning Medical and 40 mg Branch in the evening. furosemide 2022-0 Yes 40mg Take 40 mg U nivers 40 mg 4-28 by mouth ity of tablet 00:00: in the [place] morning Medical and 40 mg Branch in the evening. furosemide 2022-0 Yes 40mg Take 40 mg U nivers 40 mg 4-28 by mouth ity of tablet 00:00: in the [place] morning Medical and 40 mg Branch in the evening. losartan 50 2022-0 Yes 50mg Take 50 mg [facility] mg tablet 4-15 by mouth ity of 00:00: daily. [address] losartan 50 2022-0 Yes 50mg Take 50 mg [facility] mg tablet 4-15 by mouth ity of 00:00: daily. [address] losartan 50 2022-0 Yes 50mg Take 50 mg [facility] mg tablet 4-15 by mouth ity of 00:00: daily. [address] losartan 50 2022-0 Yes 50mg Take 50 mg [facility] mg tablet 4-15 by mouth ity of 00:00: daily. [address] losartan 50 2022-0 Yes 50mg Take 50 mg [facility] mg tablet 4-15 by mouth ity of 00:00: daily. [address] losartan 50 2022-0 Yes 50mg Take 50 mg [facility] mg tablet 4-15 by mouth ity of 00:00: daily. [place] [address] [facility] losartan 50 2021-0 Yes 50mg Take 50 mg [facility] mg tablet 4-15 by mouth ity of 00:00: daily. [place] [facility] losartan 50 2021-0 Yes 50mg Take 50 mg [facility] mg tablet 4-15 by mouth ity of 00:00: daily. [place] [facility] losartan 50 2021-0 Yes 50mg Take 50 mg [facility] mg tablet 4-15 by mouth ity of 00:00: daily. [place] [facility] losartan 50 2021-0 Yes 50mg Take 50 mg [facility] mg tablet 4-15 by mouth ity of 00:00: daily. [place] [facility] losartan 50 2021-0 Yes 50mg Take 50 mg Univers mg tablet 4-15 by mouth ity of 00:00: daily. [place] [facility] losartan 50 2021-0 Yes 50mg Take 50 mg Univers mg tablet 4-15 by mouth ity of 00:00: daily. [place] [facility] losartan 50 2021-0 Yes 50mg Take 50 mg Univers mg tablet 4-15 by mouth ity of 00:00: daily. [place] [facility] losartan 50 2021-0 Yes 50mg Take 50 mg Univers mg tablet 4-15 by mouth ity of 00:00: daily. [place] [facility] losartan 50 2021-0 Yes 50mg Take 50 mg Univers mg tablet 4-15 by mouth ity of 00:00: daily. [place] [facility] losartan 50 2021-0 Yes 50mg Take 50 mg Univers mg tablet 4-15 by mouth ity of 00:00: daily. [place] [facility] losartan 50 2021-0 Yes 50mg Take 50 mg Univers mg tablet 4-15 by mouth ity of 00:00: daily. [place] [facility] losartan 50 2021-0 Yes 50mg Take 50 mg Univers mg tablet 4-15 by mouth ity of 00:00: daily. [place] [facility] losartan 50 2021-0 Yes 50mg Take 50 mg Univers mg tablet 4-15 by mouth ity of 00:00: daily. [place] [facility] losartan 50 2021-0 Yes 50mg Take 50 mg Univers mg tablet 4-15 by mouth ity of 00:00: daily. [place] [facility] losartan 50 2021-0 Yes 50mg Take 50 mg Univers mg tablet 4-15 by mouth ity of 00:00: daily. [facility] losartan 50 2021-0 Yes 50mg Take 50 mg Univers mg tablet 4-15 by mouth ity of 00:00: daily. [facility] losartan 50 2021-0 Yes 50mg Take 50 mg Univers mg tablet 4-15 by mouth ity of 00:00: daily. [place] [facility] losartan 50 2021-0 Yes 50mg Take 50 mg Univers mg tablet 4-15 by mouth ity of 00:00: daily. [place] [facility] losartan 50 2021-0 Yes 50mg Take 50 mg Univers mg tablet 4-15 by mouth ity of 00:00: daily. [place] [facility] losartan 50 2021-0 Yes 50mg Take 50 mg Univers mg tablet 4-15 by mouth ity of 00:00: daily. [place] [facility] losartan 50 2021-0 Yes 50mg Take 50 mg Univers mg tablet 4-15 by mouth ity of 00:00: daily. [place] [facility] losartan 50 2021-0 Yes 50mg Take 50 mg Univers mg tablet 4-15 by mouth ity of 00:00: daily. [place] [facility] losartan 50 2021-0 Yes 50mg Take 50 mg Univers mg tablet 4-15 by mouth ity of 00:00: daily. [place] [facility] losartan 50 2021-0 Yes 50mg Take 50 mg Univers mg tablet 4-15 by mouth ity of 00:00: daily. [place] [facility] losartan 50 2021-0 Yes 50mg Take 50 mg Univers mg tablet 4-15 by mouth ity of 00:00: daily. [place] [facility] losartan 50 2021-0 Yes 50mg Take 50 mg Univers mg tablet 4-15 by mouth ity of 00:00: daily. [place] [facility] losartan 50 2021-0 Yes 50mg Take 50 mg Univers mg tablet 4-15 by mouth ity of 00:00: daily. [place] [facility] losartan 50 2021-0 Yes 50mg Take 50 mg Univers mg tablet 4-15 by mouth ity of 00:00: daily. [place] [facility] losartan 50 2021-0 Yes 50mg Take 50 mg Univers mg tablet 4-15 by mouth ity of 00:00: daily. [place] [facility] losartan 50 2021-0 Yes 50mg Take 50 mg [facility] mg tablet 4-15 by mouth ity of 00:00: daily. [place] [facility] losartan 50 2022-0 Yes 50mg Take 50 mg [facility] mg tablet 4-15 by mouth ity of 00:00: daily. Medical Branch losartan 50 0 Yes 50mg Take 50 mg [facility] mg tablet 4-15 by mouth ity of 00:00: daily. Medical Branch losartan 50 0 Yes 50mg Take 50 mg [facility] mg tablet 4-15 by mouth ity of 00:00: daily. Medical Branch glimepiride Yes [id number] 1mg Take 1 Univers 1 mg tablet 4-04 tablet by ity of 00:00: mouth [place] 00 daily. Medical Branch glimepiride Yes [id number] 1mg Take 1 Univers 1 mg tablet 4-04 tablet by ity of 00:00: mouth [place] 00 daily. Medical Branch glimepiride Yes [id number] 1mg Take 1 Univers 1 mg tablet 4-04 tablet by ity of 00:00: mouth [place] 00 daily. Medical Branch glimepiride 2021- No [id number] 1mg Take 1 Univers 1 mg tablet 4-04 10-06 tablet by it y of 00:00: 00:00 mouth [place] 00 :00 daily. Medical Branch cephALEXin 2021- No [id number] 250mg Take 1 Univers (KEFLEX) 4-04 06-17 capsule by ity of 250 mg 00:00: 00:00 mouth [place] capsule 00 :00 every 6 Medical (six) Branch hours. aspirin 81 2020-10 Yes 81mg Take 81 mg U nivers mg chewable 1-18 by mouth ity of tablet 08:59: daily. [place] [address] Medical Branch aspirin 81 2020-10 Yes 81mg Take 81 mg U nivers mg chewable 1-18 by mouth ity of tablet 08:59: daily. [place] [address] Medical Branch aspirin 81 2020-10 Yes 81mg Take 81 mg U nivers mg chewable 1-18 by mouth ity of tablet 08:59: daily. [place] [address] Medical Branch aspirin 81 2020-10 Yes 81mg Take 81 mg U nivers mg chewable 1-18 by mouth ity of tablet 08:59: daily. [address] Branch aspirin 81 2020-10 Yes 81mg Take 81 mg U nivers mg chewable 1-18 by mouth ity of tablet 08:59: daily. [address] aspirin 81 2020-10 Yes 81mg Take 81 mg U nivers mg chewable 1-18 by mouth ity of tablet 08:59: daily. [address] aspirin 81 2020-10 Yes 81mg Take 81 mg U nivers mg chewable 1-18 by mouth ity of tablet 08:59: daily. [address] aspirin 81 2020-10 Yes 81mg Take 81 mg U nivers mg chewable 1-18 by mouth ity of tablet 08:59: daily. [address] aspirin 81 2020-10 Yes 81mg Take 81 mg U nivers mg chewable 1-18 by mouth ity of tablet 08:59: daily. [address] aspirin 81 2020-10 Yes 81mg Take 81 mg U nivers mg chewable 1-18 by mouth ity of tablet 08:59: daily. [address] aspirin 81 2020-10 Yes 81mg Take 81 mg U nivers mg chewable 1-18 by mouth ity of tablet 08:59: daily. [address] aspirin 81 2020-10 Yes 81mg Take 81 mg U nivers mg chewable 1-18 by mouth ity of tablet 08:59: daily. [address] aspirin 81 2020-10 Yes 81mg Take 81 mg U nivers mg chewable 1-18 by mouth ity of tablet 08:59: daily. [address] FEBUXOSTAT 2020-10 Yes [id number] TAKE 1 Univers 40 mg 1-02 TABLET BY ity of tablet 00:00: MOUTH [place] 00 EVERY DAY Medical IN THE [place] MORNING FEBUXOSTAT 2020-10 Yes [id number] TAKE 1 Univers 40 mg 1-02 TABLET BY ity of tablet 00:00: MOUTH [place] 00 EVERY DAY Medical IN THE [place] MORNING FEBUXOSTAT 2020-10 Yes [id number] TAKE 1 [facility] 40 mg 1-02 TABLET BY ity of tablet 00:00: MOUTH [place] 00 EVERY DAY Medical IN THE [place] MORNING FEBUXOSTAT 2020-10 Yes [id number] TAKE 1 [facility] 40 mg 1-02 TABLET BY ity of tablet 00:00: MOUTH [place] 00 EVERY DAY Medical IN THE [facility] FEBUXOSTAT 2020-10 Yes [id number] TAKE 1 Univers 40 mg 1-02 TABLET BY ity of tablet 00:00: MOUTH [place] 00 EVERY DAY Medical IN THE [facility] FEBUXOSTAT 2020-10 Yes [id number] TAKE 1 Univers 40 mg 1-02 TABLET BY ity of tablet 00:00: MOUTH [place] 00 EVERY DAY Medical IN THE [facility] FEBUXOSTAT 2020-10 Yes [id number] TAKE 1 [facility] 40 mg 1-02 TABLET BY ity of tablet 00:00: MOUTH [place] 00 EVERY DAY Medical IN THE [facility] FEBUXOSTAT 2020-10 Yes [id number] TAKE 1 [facility] 40 mg 1-02 TABLET BY ity of tablet 00:00: MOUTH [place] 00 EVERY DAY Medical IN THE [facility] FEBUXOSTAT 2020-10 Yes [id number] TAKE 1 [facility] 40 mg 1-02 TABLET BY ity of tablet 00:00: MOUTH [place] 00 EVERY DAY Medical IN THE [facility] FEBUXOSTAT 2020-10 Yes [id number] TAKE 1 [facility] 40 mg 1-02 TABLET BY ity of tablet 00:00: MOUTH [place] 00 EVERY DAY Medical IN THE [facility] FEBUXOSTAT 2020-10 Yes [id number] TAKE 1 [facility] 40 mg 1-02 TABLET BY ity of tablet 00:00: MOUTH [place] 00 EVERY DAY Medical IN THE [facility] FEBUXOSTAT 2020-10 Yes [id number] TAKE 1 [facility] 40 mg 1-02 TABLET BY ity of tablet 00:00: MOUTH [place] 00 EVERY DAY Medical IN THE [facility] FEBUXOSTAT 2020-10 Yes [id number] TAKE 1 [facility] 40 mg 1-02 TABLET BY ity of tablet 00:00: MOUTH [place] 00 EVERY DAY Medical IN THE [facility] FEBUXOSTAT 2020-10 Yes [id number] TAKE 1 [facility] 40 mg 1-02 TABLET BY ity of tablet 00:00: MOUTH [place] 00 EVERY DAY Medical IN THE [facility] FEBUXOSTAT 2020-10 Yes [id number] TAKE 1 [facility] 40 mg 1-02 TABLET BY ity of tablet 00:00: MOUTH [place] 00 EVERY DAY Medical IN THE [facility] FEBUXOSTAT 2020-10 Yes [id number] TAKE 1 [facility] 40 mg 1-02 TABLET BY ity of tablet 00:00: MOUTH [place] 00 EVERY DAY Medical IN THE [facility] FEBUXOSTAT 2020-10 Yes [id number] TAKE 1 [facility] 40 mg 1-02 TABLET BY ity of tablet 00:00: MOUTH [place] 00 EVERY DAY Medical IN THE [facility] FEBUXOSTAT 2020-10 Yes [id number] TAKE 1 [facility] 40 mg 1-02 TABLET BY ity of tablet 00:00: MOUTH [place] 00 EVERY DAY Medical IN THE [facility] FEBUXOSTAT 2020-10 Yes [id number] TAKE 1 [facility] 40 mg 1-02 TABLET BY ity of tablet 00:00: MOUTH [place] 00 EVERY DAY Medical IN THE [facility] FEBUXOSTAT 2020-10 Yes [id number] TAKE 1 [facility] 40 mg 1-02 TABLET BY ity of tablet 00:00: MOUTH [place] 00 EVERY DAY Medical IN THE [facility] FEBUXOSTAT 2020-10 Yes [id number] TAKE 1 [facility] 40 mg 1-02 TABLET BY ity of tablet 00:00: MOUTH [place] 00 EVERY DAY Medical IN THE [facility] FEBUXOSTAT 2020-10 Yes [id number] TAKE 1 [facility] 40 mg 1-02 TABLET BY ity of tablet 00:00: MOUTH [place] 00 EVERY DAY Medical IN THE [facility] FEBUXOSTAT 2020-10 Yes [id number] TAKE 1 [facility] 40 mg 1-02 TABLET BY ity of tablet 00:00: MOUTH [place] 00 EVERY DAY Medical IN THE [facility] FEBUXOSTAT 2020-10 Yes [id number] TAKE 1 [facility] 40 mg 1-02 TABLET BY ity of tablet 00:00: MOUTH [place] 00 EVERY DAY Medical IN THE [facility] FEBUXOSTAT 2020-10 Yes [id number] TAKE 1 [facility] 40 mg 1-02 TABLET BY ity of tablet 00:00: MOUTH [place] 00 EVERY DAY Medical IN THE [facility] FEBUXOSTAT 2020-10 Yes [id number] TAKE 1 [facility] 40 mg 1-02 TABLET BY ity of tablet 00:00: MOUTH [place] 00 EVERY DAY Medical IN THE [facility] FEBUXOSTAT 2020-10 Yes [id number] TAKE 1 [facility] 40 mg 1-02 TABLET BY ity of tablet 00:00: MOUTH [place] 00 EVERY DAY Medical IN THE [facility] FEBUXOSTAT 2020-10 Yes [id number] TAKE 1 [facility] 40 mg 1-02 TABLET BY ity of tablet 00:00: MOUTH [place] 00 EVERY DAY Medical IN THE [facility] FEBUXOSTAT 2020-10 Yes [id number] TAKE 1 [facility] 40 mg 1-02 TABLET BY ity of tablet 00:00: MOUTH [place] 00 EVERY DAY Medical IN THE [facility] FEBUXOSTAT 2020-10 Yes [id number] TAKE 1 [facility] 40 mg 1-02 TABLET BY ity of tablet 00:00: MOUTH [place] 00 EVERY DAY Medical IN THE [facility] FEBUXOSTAT 2020-10 Yes [id number] TAKE 1 [facility] 40 mg 1-02 TABLET BY ity of tablet 00:00: MOUTH [place] 00 EVERY DAY Medical IN THE [facility] FEBUXOSTAT 2020-10 Yes [id number] TAKE 1 [facility] 40 mg 1-02 TABLET BY ity of tablet 00:00: MOUTH [place] 00 EVERY DAY Medical IN THE [facility] FEBUXOSTAT 2020-10 Yes [id number] TAKE 1 [facility] 40 mg 1-02 TABLET BY ity of tablet 00:00: MOUTH [place] 00 EVERY DAY Medical IN THE [facility] FEBUXOSTAT 2020-10 Yes [id number] TAKE 1 [facility] 40 mg 1-02 TABLET BY ity of tablet 00:00: MOUTH [place] 00 EVERY DAY Medical IN THE [facility] FEBUXOSTAT 2020-10 Yes [id number] TAKE 1 [facility] 40 mg 1-02 TABLET BY ity of tablet 00:00: MOUTH [place] 00 EVERY DAY Medical IN THE [facility] FEBUXOSTAT 2020-10 Yes [id number] TAKE 1 [facility] 40 mg 1-02 TABLET BY ity of tablet 00:00: MOUTH [place] 00 EVERY DAY Medical IN THE [facility] FEBUXOSTAT 2020-10 Yes [id number] TAKE 1 [facility] 40 mg 1-02 TABLET BY ity of tablet 00:00: MOUTH [place] 00 EVERY DAY Medical IN THE [facility] FEBUXOSTAT 2020-10 Yes [id number] TAKE 1 [facility] 40 mg 1-02 TABLET BY ity of tablet 00:00: MOUTH [place] 00 EVERY DAY Medical IN THE [facility] FEBUXOSTAT 2020-10 Yes [id number] TAKE 1 [facility] 40 mg 1-02 TABLET BY ity of tablet 00:00: MOUTH [place] 00 EVERY DAY Medical IN THE [facility] FEBUXOSTAT 2020-10 Yes [id number] TAKE 1 [facility] 40 mg 1-02 TABLET BY ity of tablet 00:00: MOUTH [place] 00 EVERY DAY Medical IN THE [facility] digoxin 125 2020-10 Yes [id number] .125mg Take 1 Univers mcg tablet 0-29 tablet by ity of 00:00: mouth [place] 00 daily. [facility] digoxin 125 2020-10 Yes [id number] .125mg Take 1 Univers mcg tablet 0-29 tablet by ity of 00:00: mouth [place] 00 daily. Medical Branch digoxin 125 2020-10 Yes [id number] .125mg Take 1 Univers mcg tablet 0-29 tablet by ity of 00:00: mouth [place] 00 daily. Medical Branch digoxin 125 2020-10 Yes [id number] .125mg Take 1 Univers mcg tablet 0-29 tablet by ity of 00:00: mouth [place] 00 daily. Medical Branch digoxin 125 2020-10 Yes [id number] .125mg Take 1 Univers mcg tablet 0-29 tablet by ity of 00:00: mouth [place] 00 daily. Medical Branch digoxin 125 2020-10 Yes [id number] .125mg Take 1 Univers mcg tablet 0-29 tablet by ity of 00:00: mouth [place] 00 daily. Medical Branch digoxin 125 2020-10 Yes [id number] .125mg Take 1 Univers mcg tablet 0-29 tablet by ity of 00:00: mouth [place] 00 daily. Medical Branch digoxin 125 2020-10 Yes [id number] .125mg Take 1 [facility] mcg tablet 0-29 tablet by ity of 00:00: mouth [place] 00 daily. Medical Branch digoxin 125 2020-10 Yes [id number] .125mg Take 1 [facility] mcg tablet 0-29 tablet by ity of 00:00: mouth [place] 00 daily. Medical Branch digoxin 125 2020-10 Yes [id number] .125mg Take 1 Univers mcg tablet 0-29 tablet by ity of 00:00: mouth [place] 00 daily. Medical Branch digoxin 125 2020-10 Yes [id number] .125mg Take 1 Univers mcg tablet 0-29 tablet by ity of 00:00: mouth [place] 00 daily. Medical Branch digoxin 125 2020-10 Yes [id number] .125mg Take 1 Univers mcg tablet 0-29 tablet by ity of 00:00: mouth [place] 00 daily. Medical Branch digoxin 125 2020-10 Yes [id number] .125mg Take 1 Univers mcg tablet 0-29 tablet by ity of 00:00: mouth [place] 00 daily. Medical Branch digoxin 125 2020-10- No [id number] .125mg Take 1 Univers mcg tablet 0-29 12-06 tablet by ity of 00:00: 00:00 mouth [place] 00 :00 daily. Medical Branch digoxin 125 2020-10- No [id number] .125mg Take 1 Univers mcg tablet 0-29 12-06 tablet by ity of 00:00: 00:00 mouth [place] 00 :00 daily. Medical Branch B 2020-10 Yes Take by Univers INFANTIS/B 0-28 mouth. ity of ANI/B HAMLET/B 17:00: [place] BIFID 58 Medical (PROBIOTIC Branch 4X ORAL) vitamin C 2020-10 Yes 1000mg Take 1,000 Univers with stefany 0-28 mg by ity of hips 17:00: mouth [place] (VITAMIN C) 58 daily. Medica l 1,000 mg Branch tablet diphenhydrA 2020-10 Yes 25mg Take 25 mg Univers MINE 0-28 by mouth ity of (BENADRYL 17:00: every 6 [place] ALLERGY) 25 58 (six) Medical mg tablet hours as Branch needed for Allergies. flaxseed 2020-10 Yes 1{tbl} Take 1 Unive rs oil (OMEGA 0-28 tablet by ity of 3 ORAL) 17:00: mouth. [place] [address] Medical Branch B 2020-10 Yes Take by Univers INFANTIS/B 0-28 mouth. ity of ANI/B HAMLET/B 17:00: [place] BIFID 58 Medical (PROBIOTIC Branch 4X ORAL) vitamin C 2020-10 Yes 1000mg Take 1,000 Univers with stefany 0-28 mg by ity of hips 17:00: mouth [place] (VITAMIN C) 58 daily. Medica l 1,000 mg Branch tablet diphenhydrA 2020-10 Yes 25mg Take 25 mg Univers MINE 0-28 by mouth ity of (BENADRYL 17:00: every 6 [place] ALLERGY) 25 58 (six) Medical mg tablet hours as Branch needed for Allergies. flaxseed 2020-10 Yes 1{tbl} Take 1 Unive rs oil (OMEGA 0-28 tablet by ity of 3 ORAL) 17:00: mouth. [place] [address] Medical Branch B 2020-10 Yes Take by Univers INFANTIS/B 0-28 mouth. ity of ANI/B HAMLET/B 17:00: [place] BIFID 58 Medical (PROBIOTIC Branch 4X ORAL) vitamin C 2020-10 Yes 1000mg Take 1,000 Univers with stefany 0-28 mg by ity of hips 17:00: mouth [place] (VITAMIN C) 58 daily. Medica l 1,000 mg Branch tablet diphenhydrA 2021-1 Yes 25mg Take 25 mg Univers MINE 0-28 by mouth ity of (BENADRYL 17:00: every 6 [place] ALLERGY) 25 58 (six) Medical mg tablet hours as Branch needed for Allergies. flaxseed 2020-10 Yes 1{tbl} Take 1 Unive rs oil (OMEGA 0-28 tablet by ity of 3 ORAL) 17:00: mouth. [place] [address] Medical Branch B 2020-10 Yes Take by Univers INFANTIS/B 0-28 mouth. ity of ANI/B HAMLET/B 17:00: [place] BIFID 58 Medical (PROBIOTIC Branch 4X ORAL) vitamin C 2020-10 Yes 1000mg Take 1,000 Univers with stefany 0-28 mg by ity of hips 17:00: mouth [place] (VITAMIN C) 58 daily. Medica l 1,000 mg Branch tablet diphenhydrA 2020-10 Yes 25mg Take 25 mg Univers MINE 0-28 by mouth ity of (BENADRYL 17:00: every 6 [place] ALLERGY) 25 58 (six) Medical mg tablet hours as Branch needed for Allergies. flaxseed 2020-10 Yes 1{tbl} Take 1 Unive rs oil (OMEGA 0-28 tablet by ity of 3 ORAL) 17:00: mouth. [place] [address] Medical Branch B 2020-10 Yes Take by Univers INFANTIS/B 0-28 mouth. ity of ANI/B HAMLET/B 17:00: [place] BIFID 58 Medical (PROBIOTIC Branch 4X ORAL) vitamin C 2020-10 Yes 1000mg Take 1,000 Univers with stefany 0-28 mg by ity of hips 17:00: mouth [place] (VITAMIN C) 58 daily. Medica l 1,000 mg Branch tablet diphenhydrA 2020-10 Yes 25mg Take 25 mg Univers MINE 0-28 by mouth ity of (BENADRYL 17:00: every 6 [place] ALLERGY) 25 58 (six) Medical mg tablet hours as Branch needed for Allergies. flaxseed 2020-10 Yes 1{tbl} Take 1 Unive rs oil (OMEGA 0-28 tablet by ity of 3 ORAL) 17:00: mouth. [place] [address] Medical Branch B 2020-10 Yes Take by Univers INFANTIS/B 0-28 mouth. ity of ANI/B HAMLET/B 17:00: [place] BIFID 58 Medical (PROBIOTIC Branch 4X ORAL) B 2020-10 Yes Take by Univers INFANTIS/B 0-28 mouth. ity of ANI/B HAMLET/B 17:00: [place] BIFID 58 Medical (PROBIOTIC Branch 4X ORAL) B 2020-10 Yes Take by Univers INFANTIS/B 0-28 mouth. ity of ANI/B HAMLET/B 17:00: [place] BIFID 58 Medical (PROBIOTIC Branch 4X ORAL) B 2020-10 Yes Take by Univers INFANTIS/B 0-28 mouth. ity of ANI/B HAMLET/B 17:00: [place] BIFID 58 Medical (PROBIOTIC Branch 4X ORAL) B 2020-10 Yes Take by Univers INFANTIS/B 0-28 mouth. ity of ANI/B HAMLET/B 17:00: [place] BIFID 58 Medical (PROBIOTIC Branch 4X ORAL) B 2020-10 Yes Take by Univers INFANTIS/B 0-28 mouth. ity of ANI/B HAMLET/B 17:00: [place] BIFID 58 Medical (PROBIOTIC Branch 4X ORAL) B 2020-10 Yes Take by Univers INFANTIS/B 0-28 mouth. ity of ANI/B HAMLET/B 17:00: [place] BIFID 58 Medical (PROBIOTIC Branch 4X ORAL) B 2020-10 Yes Take by Univers INFANTIS/B 0-28 mouth. ity of ANI/B HAMLET/B 17:00: [place] BIFID 58 Medical (PROBIOTIC Branch 4X ORAL) apixaban 5 2020-10 Yes 1358 5mg Take 1 Unive rs mg tablet 0-28 tablet by ity o f 00:00: mouth 2 [place] 00 (two) Medical times Branch daily. Indication s: atrial fibrillati on metoprolol 2020-10 Yes [id number] 100mg Take 1 Univers succinate 0-28 tablet by ity o f XL 100 mg 00:00: mouth 2 [place] 24 hr 00 (two) Medical tablet times Branch daily. atorvastati 2020-10 Yes [id number] 40mg Take 1 Univers n 40 mg 0-28 tablet by ity of tablet 00:00: mouth at [place] 00 bedtime. Medical Branch apixaban 5 2020-10 Yes 1358 5mg Take 1 Unive rs mg tablet 0-28 tablet by ity o f 00:00: mouth 2 [place] 00 (two) Medical times Branch daily. Indication s: atrial fibrillati on metoprolol 2020-10 Yes [id number] 100mg Take 1 Univers succinate 0-28 tablet by ity o f XL 100 mg 00:00: mouth 2 [place] 24 hr 00 (two) Medical tablet times Branch daily. atorvastati 2020-10 Yes [id number] 40mg Take 1 Univers n 40 mg 0-28 tablet by ity of tablet 00:00: mouth at [place] 00 bedtime. Medical Branch apixaban 5 2020-10 Yes 1358 5mg Take 1 Unive rs mg tablet 0-28 tablet by ity o f 00:00: mouth 2 [place] 00 (two) Medical times Branch daily. Indication s: atrial fibrillati on metoprolol 2020-10 Yes [id number] 100mg Take 1 [facility] succinate 0-28 tablet by ity o f XL 100 mg 00:00: mouth 2 [place] 24 hr 00 (two) Medical tablet times Branch daily. atorvastati 2020-10 Yes [id number] 40mg Take 1 Univers n 40 mg 0-28 tablet by ity of tablet 00:00: mouth at [place] 00 bedtime. Medical Branch apixaban 5 2020-10 Yes 1358 5mg Take 1 Unive rs mg tablet 0-28 tablet by ity o f 00:00: mouth 2 [place] 00 (two) Medical times Branch daily. Indication s: atrial fibrillati on metoprolol 2020-10 Yes [id number] 100mg Take 1 [facility] succinate 0-28 tablet by ity o f XL 100 mg 00:00: mouth 2 [place] 24 hr 00 (two) Medical tablet times Branch daily. atorvastati 2020-10 Yes [id number] 40mg Take 1 Univers n 40 mg 0-28 tablet by ity of tablet 00:00: mouth at [place] 00 bedtime. Medical Branch apixaban 5 2020-10 Yes 1358 5mg Take 1 Unive rs mg tablet 0-28 tablet by ity o f 00:00: mouth 2 [place] 00 (two) Medical times Branch daily. Indication s: atrial fibrillati on metoprolol 2020-10 Yes [id number] 100mg Take 1 [facility] succinate 0-28 tablet by ity o f XL 100 mg 00:00: mouth 2 [place] 24 hr 00 (two) Medical tablet times Branch daily. atorvastati 2020-10 Yes [id number] 40mg Take 1 Univers n 40 mg 0-28 tablet by ity of tablet 00:00: mouth at [place] 00 bedtime. Medical Branch apixaban 2020-10 Yes 1358 5mg Take 1 Unive rs mg tablet 0-28 tablet by ity o f 00:00: mouth 2 [place] 00 (two) Medical times Branch daily. Indication s: atrial fibrillati on metoprolol 2020-10 Yes [id number] 100mg Take 1 [facility] succinate 0-28 tablet by ity o f XL 100 mg 00:00: mouth 2 [place] 24 hr 00 (two) Medical tablet times Branch daily. atorvastati 2020-10 Yes [id number] 40mg Take 1 Univers n 40 mg 0-28 tablet by ity of tablet 00:00: mouth at [place] 00 bedtime. Medical Branch apixaban 2020-10 Yes 1358 5mg Take 1 Unive rs mg tablet 0-28 tablet by ity o f 00:00: mouth 2 [place] (two) Medical times Branch daily. Indication s: atrial fibrillati on metoprolol 2020-10 Yes [id number] 100mg Take 1 [facility] succinate 0-28 tablet by ity o f XL 100 mg 00:00: mouth 2 [place] 24 hr 00 (two) Medical tablet times Branch daily. atorvastati 2020-10 Yes [id number] 40mg Take 1 Univers n 40 mg 0-28 tablet by ity of tablet 00:00: mouth at [place] 00 bedtime. Medical Branch apixaban 2020-10 Yes 1358 5mg Take 1 Unive rs mg tablet 0-28 tablet by ity o f 00:00: mouth 2 [place] 00 (two) Medical times Branch daily. Indication s: atrial fibrillati on metoprolol 2020-10 Yes [id number] 100mg Take 1 [facility] succinate 0-28 tablet by ity o f XL 100 mg 00:00: mouth 2 [place] 24 hr 00 (two) Medical tablet times Branch daily. atorvastati 2020-10 Yes [id number] 40mg Take 1 Univers n 40 mg 0-28 tablet by ity of tablet 00:00: mouth at [place] 00 bedtime. Medical Branch apixaban 2020-10 Yes 1358 5mg Take 1 Unive rs mg tablet 0-28 tablet by ity o f 00:00: mouth 2 [place] 00 (two) Medical times Branch daily. Indication s: atrial fibrillati on metoprolol 2020-10 Yes [id number] 100mg Take 1 [facility] succinate 0-28 tablet by ity o f XL 100 mg 00:00: mouth 2 [place] 24 hr 00 (two) Medical tablet times Branch daily. atorvastati 2020-10 Yes [id number] 40mg Take 1 Univers n 40 mg 0-28 tablet by ity of tablet 00:00: mouth at [place] 00 bedtime. Medical Branch apixaban 5 2020-10 Yes 1358 5mg Take 1 Unive rs mg tablet 0-28 tablet by ity o f 00:00: mouth 2 [place] 00 (two) Medical times Branch daily. Indication s: atrial fibrillati on metoprolol 2020-10 Yes [id number] 100mg Take 1 [facility] succinate 0-28 tablet by ity o f XL 100 mg 00:00: mouth 2 [place] 24 hr 00 (two) Medical tablet times Branch daily. atorvastati 2020-10 Yes [id number] 40mg Take 1 [facility] n 40 mg 0-28 tablet by [facility] of tablet 00:00: mouth at [place] 00 bedtime. Medical Branch apixaban 5 2020-10 Yes [id number] 5mg Take 1 [facility] mg tablet 0-28 tablet by ity o f 00:00: mouth 2 [place] 00 (two) Medical times Branch daily. Indication s: atrial fibrillati on metoprolol 2020-10 Yes [id number] 100mg Take 1 [facility] succinate 0-28 tablet by ity o f XL 100 mg 00:00: mouth 2 [place] 24 hr 00 (two) Medical tablet times Branch daily. atorvastati 2020-10 Yes [id number] 40mg Take 1 [facility] n 40 mg 0-28 tablet by ity of tablet 00:00: mouth at [place] 00 bedtime. Medical Branch apixaban 5 2020-10 Yes [id number] 5mg Take 1 [facility] mg tablet 0-28 tablet by ity o f 00:00: mouth 2 [place] 00 (two) Medical times Branch daily. Indication s: atrial fibrillati on metoprolol 2020-10 Yes [id number] 100mg Take 1 [facility] succinate 0-28 tablet by ity o f XL 100 mg 00:00: mouth 2 [place] 24 hr 00 (two) Medical tablet times Branch daily. atorvastati 2020-10 Yes [id number] 40mg Take 1 [facility] n 40 mg 0-28 tablet by ity of tablet 00:00: mouth at [place] 00 bedtime. Medical Branch apixaban 5 2020-10 Yes [id number] 5mg Take 1 [facility] mg tablet 0-28 tablet by ity o f 00:00: mouth 2 [place] 00 (two) Medical times Branch daily. Indication s: atrial fibrillati on metoprolol 2020-10 Yes [id number] 100mg Take 1 [facility] succinate 0-28 tablet by ity o f XL 100 mg 00:00: mouth 2 [place] 24 hr 00 (two) Medical tablet times Branch daily. atorvastati 2020-10 Yes [id number] 40mg Take 1 [facility] n 40 mg 0-28 tablet by ity of tablet 00:00: mouth at [place] 00 bedtime. Medical Branch metoprolol 2020-10 Yes [id number] 100mg Take 1 [facility] succinate 0-28 tablet by ity o f XL 100 mg 00:00: mouth 2 [place] 24 hr 00 (two) Medical tablet times Branch daily. atorvastati 2020-10 Yes [id number] 40mg Take 1 [facility] n 40 mg 0-28 tablet by ity of tablet 00:00: mouth at [place] [address] bedtime. Medical Branch metoprolol 2020-10 Yes [id number] 100mg Take 1 [facility] succinate 0-28 tablet by ity o f XL 100 mg 00:00: mouth 2 [place] 24 hr 00 (two) Medical tablet times Branch daily. atorvastati 2020-10 Yes [id number] 40mg Take 1 [facility] n 40 mg 0-28 tablet by ity of tablet 00:00: mouth at [place] [address] bedtime. Medical Branch metoprolol 2020-10 Yes [id number] 100mg Take 1 [facility] succinate 0-28 tablet by ity o f XL 100 mg 00:00: mouth 2 [place] 24 hr 00 (two) Medical tablet times Branch daily. atorvastati 2020-10 Yes [id number] 40mg Take 1 [facility] n 40 mg 0-28 tablet by ity of tablet 00:00: mouth at [place] [address] bedtime. Medical Branch metoprolol 2020-10 Yes [id number] 100mg Take 1 [facility] succinate 0-28 tablet by ity o f XL 100 mg 00:00: mouth 2 [place] 24 hr 00 (two) Medical tablet times Branch daily. atorvastati 2020-10 Yes [id number] 40mg Take 1 [facility] n 40 mg 0-28 tablet by ity of tablet 00:00: mouth at [place] 00 bedtime. Medical Branch metoprolol 2020-10 Yes [id number] 100mg Take 1 [facility] succinate 0-28 tablet by ity o f XL 100 mg 00:00: mouth 2 [place] 24 hr 00 (two) Medical tablet times Branch daily. atorvastati 2020-10 Yes [id number] 40mg Take 1 [facility] n 40 mg 0-28 tablet by ity of tablet 00:00: mouth at [place] 00 bedtime. Medical Branch metoprolol 2020-10 Yes [id number] 100mg Take 1 [facility] succinate 0-28 tablet by ity o f XL 100 mg 00:00: mouth 2 [place] 24 hr 00 (two) Medical tablet times Branch daily. atorvastati 2020-10 Yes [id number] 40mg Take 1 [facility] n 40 mg 0-28 tablet by ity of tablet 00:00: mouth at [place] [address] bedtime. Medical Branch metoprolol 2020-10 Yes [id number] 100mg Take 1 [facility] succinate 0-28 tablet by ity o f XL 100 mg 00:00: mouth 2 [place] 24 hr 00 (two) Medical tablet times Branch daily. atorvastati 2020-10 Yes [id number] 40mg Take 1 [facility] n 40 mg 0-28 tablet by it[facility] of tablet 00:00: mouth at [place] [address] bedtime. Medical Branch metoprolol 2020-10 Yes [id number] 100mg Take 1 [facility] succinate 0-28 tablet by ity o f XL 100 mg 00:00: mouth 2 [place] 24 hr 00 (two) Medical tablet times Branch daily. atorvastati 2020-10 Yes [id number] 40mg Take 1 [facility] n 40 mg 0-28 tablet by ity of tablet 00:00: mouth at [place] [address] bedtime. Medical Branch metoprolol 2020-10 Yes [id number] 100mg Take 1 [facility] succinate 0-28 tablet by ity o f XL 100 mg 00:00: mouth 2 [place] 24 hr 00 (two) Medical tablet times Branch daily. atorvastati 2020-10 Yes [id number] 40mg Take 1 [facility] n 40 mg 0-28 tablet by ity of tablet 00:00: mouth at [place] [address] bedtime. Medical Branch metoprolol 2020-10 Yes [id number] 100mg Take 1 [facility] succinate 0-28 tablet by ity o f XL 100 mg 00:00: mouth 2 [place] 24 hr 00 (two) Medical tablet times Branch daily. atorvastati 2020-10 Yes [id number] 40mg Take 1 [facility] n 40 mg 0-28 tablet by ity of tablet 00:00: mouth at [place] 00 bedtime. Medical Branch metoprolol 2020-10 Yes [id number] 100mg Take 1 [facility] succinate 0-28 tablet by ity o f XL 100 mg 00:00: mouth 2 [place] 24 hr 00 (two) Medical tablet times Branch daily. atorvastati 2020-10 Yes [id number] 40mg Take 1 [facility] n 40 mg 0-28 tablet by [facility] of tablet 00:00: mouth at [place] 00 bedtime. Medical Branch metoprolol 2020-10 Yes [id number] 100mg Take 1 [facility] succinate 0-28 tablet by ity o f XL 100 mg 00:00: mouth 2 [place] 24 hr 00 (two) Medical tablet times Branch daily. atorvastati 2020-10 Yes [id number] 40mg Take 1 [facility] n 40 mg 0-28 tablet by [facility] of tablet 00:00: mouth at [place] 00 bedtime. Medical Branch metoprolol 2020-10 Yes [id number] 100mg Take 1 [facility] succinate 0-28 tablet by ity o f XL 100 mg 00:00: mouth 2 [place] 24 hr 00 (two) Medical tablet times Branch daily. atorvastati 2020-10 Yes [id number] 40mg Take 1 [facility] n 40 mg 0-28 tablet by ity of tablet 00:00: mouth at [place] 00 bedtime. Medical Branch metoprolol 2020-10 Yes [id number] 100mg Take 1 [facility] succinate 0-28 tablet by ity o f XL 100 mg 00:00: mouth 2 [place] 24 hr 00 (two) Medical tablet times Branch daily. atorvastati 2020-10 Yes [id number] 40mg Take 1 [facility] n 40 mg 0-28 tablet by ity of tablet 00:00: mouth at [place] 00 bedtime. Medical Branch metoprolol 2020-10 Yes [id number] 100mg Take 1 [facility] succinate 0-28 tablet by ity o f XL 100 mg 00:00: mouth 2 [place] 24 hr 00 (two) Medical tablet times Branch daily. atorvastati 2020-10 Yes [id number] 40mg Take 1 [facility] n 40 mg 0-28 tablet by ity of tablet 00:00: mouth at [place] 00 bedtime. Medical Branch metoprolol 2020-10 Yes [id number] 100mg Take 1 [facility] succinate 0-28 tablet by ity o f XL 100 mg 00:00: mouth 2 [place] 24 hr 00 (two) Medical tablet times Branch daily. atorvastati 2020-10 Yes [id number] 40mg Take 1 [facility] n 40 mg 0-28 tablet by ity of tablet 00:00: mouth at [place] 00 bedtime. Medical Branch metoprolol 2020-10 Yes [id number] 100mg Take 1 [facility] succinate 0-28 tablet by ity o f XL 100 mg 00:00: mouth 2 [place] 24 hr 00 (two) Medical tablet times Branch daily. atorvastati 2020-10 Yes [id number] 40mg Take 1 [facility] n 40 mg 0-28 tablet by ity of tablet 00:00: mouth at [place] 00 bedtime. Medical Branch metoprolol 2020-10 Yes [id number] 100mg Take 1 [facility] succinate 0-28 tablet by ity o f XL 100 mg 00:00: mouth 2 [place] 24 hr 00 (two) Medical tablet times Branch daily. atorvastati 2020-10 Yes [id number] 40mg Take 1 [facility] n 40 mg 0-28 tablet by ity of tablet 00:00: mouth at [place] [address] bedtime. Medical Branch metoprolol 2020-10 Yes [id number] 100mg Take 1 [facility] succinate 0-28 tablet by ity o f XL 100 mg 00:00: mouth 2 [place] 24 hr 00 (two) Medical tablet times Branch daily. atorvastati 2020-10 Yes [id number] 40mg Take 1 [facility] n 40 mg 0-28 tablet by [facility] of tablet 00:00: mouth at [place] 00 bedtime. Medical Branch metoprolol 2020-10 Yes [id number] 100mg Take 1 [facility] succinate 0-28 tablet by ity o f XL 100 mg 00:00: mouth 2 [place] 24 hr 00 (two) Medical tablet times Branch daily. atorvastati 2020-10 Yes [id number] 40mg Take 1 [facility] n 40 mg 0-28 tablet by [facility] of tablet 00:00: mouth at [place] [address] bedtime. Medical Branch metoprolol 2020-10 Yes [id number] 100mg Take 1 [facility] succinate 0-28 tablet by ity o f XL 100 mg 00:00: mouth 2 [place] 24 hr 00 (two) Medical tablet times Branch daily. atorvastati 2020-10 Yes [id number] 40mg Take 1 [facility] n 40 mg 0-28 tablet by ity of tablet 00:00: mouth at [place] 00 bedtime. Medical Branch metoprolol 2020-10 Yes [id number] 100mg Take 1 [facility] succinate 0-28 tablet by ity o f XL 100 mg 00:00: mouth 2 [place] 24 hr 00 (two) Medical tablet times Branch daily. atorvastati 2020-10 Yes [id number] 40mg Take 1 [facility] n 40 mg 0-28 tablet by [facility]y of tablet 00:00: mouth at [place] 00 bedtime. Medical Branch metoprolol 2020-10 Yes [id number] 100mg Take 1 [facility] succinate 0-28 tablet by ity o f XL 100 mg 00:00: mouth 2 [place] 24 hr 00 (two) Medical tablet times Branch daily. atorvastati 2020-10 Yes [id number] 40mg Take 1 [facility] n 40 mg 0-28 tablet by [facility]y of tablet 00:00: mouth at [place] 00 bedtime. Medical Branch metoprolol 2020-10 Yes [id number] 100mg Take 1 [facility] succinate 0-28 tablet by ity o f XL 100 mg 00:00: mouth 2 [place] 24 hr 00 (two) Medical tablet times Branch daily. atorvastati 2020-10 Yes [id number] 40mg Take 1 [facility] n 40 mg 0-28 tablet by [facility] of tablet 00:00: mouth at [place] 00 bedtime. Medical Branch metoprolol 2020-10 Yes [id number] 100mg Take 1 [facility] succinate 0-28 tablet by ity o f XL 100 mg 00:00: mouth 2 [place] 24 hr 00 (two) Medical tablet times Branch daily. atorvastati 2020-10 Yes [id number] 40mg Take 1 [facility] n 40 mg 0-28 tablet by [facility] of tablet 00:00: mouth at [place] 00 bedtime. Medical Branch metoprolol 2020-10 Yes [id number] 100mg Take 1 [facility] succinate 0-28 tablet by ity o f XL 100 mg 00:00: mouth 2 [place] 24 hr 00 (two) Medical tablet times Branch daily. atorvastati 2020-10 Yes [id number] 40mg Take 1 [facility] n 40 mg 0-28 tablet by [facility] of tablet 00:00: mouth at [place] 00 bedtime. Medical Branch metoprolol 2020-10 Yes [id number] 100mg Take 1 [facility] succinate 0-28 tablet by ity o f XL 100 mg 00:00: mouth 2 [place] 24 hr 00 (two) Medical tablet times Branch daily. atorvastati 2020-10 Yes [id number] 40mg Take 1 [facility] n 40 mg 0-28 tablet by [facility]y of tablet 00:00: mouth at [place] 00 bedtime. Medical Branch apixaban 5 2020-10- No [id number] 5mg Take 1 [facility] ers mg tablet 0-28 12-06 tablet by ity of 00:00: 00:00 mouth 2 [place] 00 :00 (two) Medical times Branch daily. Indication s: atrial fibrillati on apixaban 5 2020-10- No 1358 5mg Take 1 [facility] ers mg tablet 0-28 12-06 tablet by ity of 00:00: 00:00 mouth 2 [place] 00 :00 (two) Medical times Branch daily. Indication s: atrial fibrillati on furosemide 2020-10- No [id number] 60mg Take 3 [facility] 20 mg 0-28 06-17 tablets by ity of tablet 00:00: 00:00 mouth [place] 00 :00 every Medical morning Branch and evening. VENTOLIN Yes [id number] TAKE 2 [facility] vers HFA 90 8-23 PUFFS BY ity of mcg/actuati 00:00: MOUTH [place] on inhaler 00 EVERY 6 Medica l HOURS Branch NEEDED FOR WHEEZE OR FOR SHORTNESS OF BREATH VENTOLIN Yes [id number] TAKE 2 [facility] vers HFA 90 8-23 PUFFS BY ity of mcg/actuati 00:00: MOUTH [place] on inhaler 00 EVERY 6 Medica l HOURS Branch NEEDED FOR WHEEZE OR FOR SHORTNESS OF BREATH VENTOLIN 0 Yes [id number] TAKE 2 [facility] vers HFA 90 8-23 PUFFS BY ity of mcg/actuati 00:00: MOUTH [place] on inhaler 00 EVERY 6 Medica l HOURS Branch NEEDED FOR WHEEZE OR FOR SHORTNESS OF BREATH VENTOLIN 0 Yes [id number] TAKE 2 [facility] vers HFA 90 8-23 PUFFS BY ity of mcg/actuati 00:00: MOUTH [place] on inhaler 00 EVERY 6 Medica l HOURS Branch NEEDED FOR WHEEZE OR FOR SHORTNESS OF BREATH VENTOLIN 0 Yes [id number] TAKE 2 [facility] vers HFA 90 8-23 PUFFS BY ity of mcg/actuati 00:00: MOUTH [place] on inhaler 00 EVERY 6 Medica l HOURS Branch NEEDED FOR WHEEZE OR FOR SHORTNESS OF BREATH VENTOLIN 2021-0 Yes [id number] TAKE 2 [facility] vers HFA 90 8-23 PUFFS BY ity of mcg/actuati 00:00: MOUTH [place] on inhaler 00 EVERY 6 Medica l HOURS Branch NEEDED FOR WHEEZE OR FOR SHORTNESS OF BREATH VENTOLIN 2021-0 Yes [id number] TAKE 2 [facility] vers HFA 90 8-23 PUFFS BY ity of mcg/actuati 00:00: MOUTH [place] on inhaler 00 EVERY 6 Medica l HOURS Branch NEEDED FOR WHEEZE OR FOR SHORTNESS OF BREATH VENTOLIN 2021-0 Yes [id number] TAKE 2 [facility] vers HFA 90 8-23 PUFFS BY ity of mcg/actuati 00:00: MOUTH [place] on inhaler 00 EVERY 6 Medica l HOURS Branch NEEDED FOR WHEEZE OR FOR SHORTNESS OF BREATH VENTOLIN 2021-0 Yes [id number] TAKE 2 [facility] vers HFA 90 8-23 PUFFS BY ity of mcg/actuati 00:00: MOUTH [place] on inhaler 00 EVERY 6 Medica l HOURS Branch NEEDED FOR WHEEZE OR FOR SHORTNESS OF BREATH VENTOLIN 2021-0 Yes [id number] TAKE 2 [facility] vers HFA 90 8-23 PUFFS BY ity of mcg/actuati 00:00: MOUTH [place] on inhaler 00 EVERY 6 Medica l HOURS Branch NEEDED FOR WHEEZE OR FOR SHORTNESS OF BREATH VENTOLIN 2021-0 Yes [id number] TAKE 2 [facility] vers HFA 90 8-23 PUFFS BY ity of mcg/actuati 00:00: MOUTH [place] on inhaler 00 EVERY 6 Medica l HOURS Branch NEEDED FOR WHEEZE OR FOR SHORTNESS OF BREATH VENTOLIN 2021-0 Yes [id number] TAKE 2 [facility] vers HFA 90 8-23 PUFFS BY ity of mcg/actuati 00:00: MOUTH [place] on inhaler 00 EVERY 6 Medica l HOURS Branch NEEDED FOR WHEEZE OR FOR SHORTNESS OF BREATH VENTOLIN 2021-0 Yes [id number] TAKE 2 [facility] vers HFA 90 8-23 PUFFS BY ity of mcg/actuati 00:00: MOUTH [place] on inhaler 00 EVERY 6 Medica l HOURS Branch NEEDED FOR WHEEZE OR FOR SHORTNESS OF BREATH VENTOLIN 2021-0 Yes [id number] TAKE 2 [facility] vers HFA 90 8-23 PUFFS BY ity of mcg/actuati 00:00: MOUTH [place] on inhaler 00 EVERY 6 Medica l HOURS Branch NEEDED FOR WHEEZE OR FOR SHORTNESS OF BREATH VENTOLIN 2021-0 Yes [id number] TAKE 2 [facility] vers HFA 90 8-23 PUFFS BY ity of mcg/actuati 00:00: MOUTH [place] on inhaler 00 EVERY 6 Medica l HOURS Branch NEEDED FOR WHEEZE OR FOR SHORTNESS OF BREATH VENTOLIN 2021-0 Yes [id number] TAKE 2 [facility] vers HFA 90 8-23 PUFFS BY ity of mcg/actuati 00:00: MOUTH [place] on inhaler 00 EVERY 6 Medica l HOURS Branch NEEDED FOR WHEEZE OR FOR SHORTNESS OF BREATH VENTOLIN 2021-0 Yes [id number] TAKE 2 [facility] vers HFA 90 8-23 PUFFS BY ity of mcg/actuati 00:00: MOUTH [place] on inhaler 00 EVERY 6 Medica l HOURS Branch NEEDED FOR WHEEZE OR FOR SHORTNESS OF BREATH VENTOLIN 2021-0 Yes [id number] TAKE 2 [facility] vers HFA 90 8-23 PUFFS BY ity of mcg/actuati 00:00: MOUTH [place] on inhaler 00 EVERY 6 Medica l HOURS Branch NEEDED FOR WHEEZE OR FOR SHORTNESS OF BREATH VENTOLIN 2021-0 Yes [id number] TAKE 2 [facility] vers HFA 90 8-23 PUFFS BY ity of mcg/actuati 00:00: MOUTH [place] on inhaler 00 EVERY 6 Medica l HOURS Branch NEEDED FOR WHEEZE OR FOR SHORTNESS OF BREATH VENTOLIN 2021-0 Yes [id number] TAKE 2 [facility] vers HFA 90 8-23 PUFFS BY ity of mcg/actuati 00:00: MOUTH [place] on inhaler 00 EVERY 6 Medica l HOURS Branch NEEDED FOR WHEEZE OR FOR SHORTNESS OF BREATH VENTOLIN 2021-0 Yes [id number] TAKE 2 [facility] vers HFA 90 8-23 PUFFS BY ity of mcg/actuati 00:00: MOUTH [place] on inhaler 00 EVERY 6 Medica l HOURS Branch NEEDED FOR WHEEZE OR FOR SHORTNESS OF BREATH VENTOLIN 2021-0 Yes [id number] TAKE 2 [facility] vers HFA 90 8-23 PUFFS BY ity of mcg/actuati 00:00: MOUTH [place] on inhaler 00 EVERY 6 Medica l HOURS Branch NEEDED FOR WHEEZE OR FOR SHORTNESS OF BREATH VENTOLIN 2021-0 Yes [id number] TAKE 2 [facility] vers HFA 90 8-23 PUFFS BY ity of mcg/actuati 00:00: MOUTH [place] on inhaler 00 EVERY 6 Medica l HOURS Branch NEEDED FOR WHEEZE OR FOR SHORTNESS OF BREATH VENTOLIN 2021-0 Yes [id number] TAKE 2 [facility] vers HFA 90 8-23 PUFFS BY ity of mcg/actuati 00:00: MOUTH [place] on inhaler 00 EVERY 6 Medica l HOURS Branch NEEDED FOR WHEEZE OR FOR SHORTNESS OF BREATH VENTOLIN 2020-0 Yes [id number] TAKE 2 [facility] vers HFA 90 8-23 PUFFS BY ity of mcg/actuati 00:00: MOUTH [place] on inhaler 00 EVERY 6 Medica l HOURS Branch NEEDED FOR WHEEZE OR FOR SHORTNESS OF BREATH VENTOLIN 2020-0 Yes [id number] TAKE 2 [facility] vers HFA 90 8-23 PUFFS BY ity of mcg/actuati 00:00: MOUTH [place] on inhaler 00 EVERY 6 Medica l HOURS Branch NEEDED FOR WHEEZE OR FOR SHORTNESS OF BREATH VENTOLIN 2020-0 Yes [id number] TAKE 2 [facility] vers HFA 90 8-23 PUFFS BY ity of mcg/actuati 00:00: MOUTH [place] on inhaler 00 EVERY 6 Medica l HOURS Branch NEEDED FOR WHEEZE OR FOR SHORTNESS OF BREATH VENTOLIN 2021-0 Yes [id number] TAKE 2 [facility] vers HFA 90 8-23 PUFFS BY ity of mcg/actuati 00:00: MOUTH [place] on inhaler 00 EVERY 6 Medica l HOURS Branch NEEDED FOR WHEEZE OR FOR SHORTNESS OF BREATH VENTOLIN 2021-0 2023- No [id number] TAKE 2 [facility] HFA 90 8-23 03-16 PUFFS BY ity of mcg/actuati 00:00: 00:00 MOUTH [place] inhaler 00 :00 EVERY 6 Medica l HOURS Branch NEEDED FOR WHEEZE OR FOR SHORTNESS OF BREATH liraglutide 2020-0 Yes INJECT 1.8 [facility] (VICTOZA 3-30 MG UNDER ity of 3-CLARA) 0.6 00:00: THE [place]IN [place] mg/0.1 mL 00 ONCE DAILY Medi josep (18 mg/3 EVERY Branch mL) MORNING injection liraglutide Yes INJECT 1.8 [facility] (VICTOZA 3-30 MG UNDER ity of 3-CLARA) 0.6 00:00: THE SKIN [place] mg/0.1 mL 00 ONCE DAILY Medi josep (18 mg/3 EVERY Branch mL) MORNING injection liraglutide Yes INJECT 1.8 [facility] (VICTOZA 3-30 MG UNDER ity of 3-CLARA) 0.6 00:00: THE [place]IN [place] mg/0.1 mL 00 ONCE DAILY Medi josep (18 mg/3 EVERY Branch mL) MORNING injection liraglutide Yes INJECT 1.8 [facility] (VICTOZA 3-30 MG UNDER ity of 3-CLARA) 0.6 00:00: THE [place]IN [place] mg/0.1 mL 00 ONCE DAILY Medi josep (18 mg/3 EVERY Branch mL) MORNING injection liraglutide Yes INJECT 1.8 [facility] (VICTOZA 3-30 MG UNDER ity of 3-CLARA) 0.6 00:00: THE [place]IN [place] mg/0.1 mL 00 ONCE DAILY Medi josep (18 mg/3 EVERY Branch mL) MORNING injection liraglutide Yes INJECT 1.8 [facility] (VICTOZA 3-30 MG UNDER ity of 3-CLARA) 0.6 00:00: THE [place]IN [place] mg/0.1 mL 00 ONCE DAILY Medi josep (18 mg/3 EVERY Branch mL) MORNING injection liraglutide Yes INJECT 1.8 [facility] (VICTOZA 3-30 MG UNDER ity of 3-CLARA) 0.6 00:00: THE [place]IN [place] mg/0.1 mL 00 ONCE DAILY Medi josep (18 mg/3 EVERY Branch mL) MORNING injection liraglutide Yes INJECT 1.8 [facility] (VICTOZA 3-30 MG UNDER ity of 3-CLARA) 0.6 00:00: THE SKIN [place] mg/0.1 mL 00 ONCE DAILY Medi josep (18 mg/3 EVERY Branch mL) MORNING injection liraglutide Yes INJECT 1.8 [facility] (VICTOZA 3-30 MG UNDER ity of 3-CLARA) 0.6 00:00: THE SKIN [place] mg/0.1 mL 00 ONCE DAILY Medi josep (18 mg/3 EVERY Branch mL) MORNING injection liraglutide Yes INJECT 1.8 [facility] (VICTOZA 3-30 MG UNDER ity of 3-CLARA) 0.6 00:00: THE SKIN [place] mg/0.1 mL 00 ONCE DAILY Medi josep (18 mg/3 EVERY Branch mL) MORNING injection liraglutide Yes INJECT 1.8 [facility] (VICTOZA 3-30 MG UNDER ity of 3-CLARA) 0.6 00:00: THE [place]IN [place] mg/0.1 mL 00 ONCE DAILY Medi josep (18 mg/3 EVERY Branch mL) MORNING injection liraglutide Yes INJECT 1.8 [facility] (VICTOZA 3-30 MG UNDER ity of 3-CLARA) 0.6 00:00: THE SKIN [place] mg/0.1 mL 00 ONCE DAILY Medi josep (18 mg/3 EVERY Branch mL) MORNING injection liraglutide Yes INJECT 1.8 [facility] (VICTOZA 3-30 MG UNDER ity of 3-CLARA) 0.6 00:00: THE SKIN [place] mg/0.1 mL 00 ONCE DAILY Medi josep (18 mg/3 EVERY Branch mL) MORNING injection liraglutide Yes INJECT 1.8 [facility] (VICTOZA 3-30 MG UNDER ity of 3-CLARA) 0.6 00:00: THE SKIN [place] mg/0.1 mL 00 ONCE DAILY Medi josep (18 mg/3 EVERY Branch mL) MORNING injection liraglutide Yes INJECT 1.8 [facility] (VICTOZA 3-30 MG UNDER ity of 3-CLARA) 0.6 00:00: THE SKIN [place] mg/0.1 mL 00 ONCE DAILY Medi josep (18 mg/3 EVERY Branch mL) MORNING injection liraglutide Yes INJECT 1.8 [facility] (VICTOZA 3-30 MG UNDER ity of 3-CLARA) 0.6 00:00: THE SKIN [place] mg/0.1 mL 00 ONCE DAILY Medi josep (18 mg/3 EVERY Branch mL) MORNING injection liraglutide Yes INJECT 1.8 [facility] (VICTOZA 3-30 MG UNDER ity of 3-CLARA) 0.6 00:00: THE [place]IN [place] mg/0.1 mL 00 ONCE DAILY Medi josep (18 mg/3 EVERY Branch mL) MORNING injection liraglutide Yes INJECT 1.8 [facility] (VICTOZA 3-30 MG UNDER ity of 3-CLARA) 0.6 00:00: THE [place]IN [place] mg/0.1 mL 00 ONCE DAILY Medi josep (18 mg/3 EVERY Branch mL) MORNING injection liraglutide Yes INJECT 1.8 [facility] (VICTOZA 3-30 MG UNDER ity of 3-CLARA) 0.6 00:00: THE [place]IN [place] mg/0.1 mL 00 ONCE DAILY Medi josep (18 mg/3 EVERY Branch mL) MORNING injection liraglutide Yes INJECT 1.8 [facility] (VICTOZA 3-30 MG UNDER ity of 3-CLARA) 0.6 00:00: THE [place]IN [place] mg/0.1 mL 00 ONCE DAILY Medi josep (18 mg/3 EVERY Branch mL) MORNING injection liraglutide Yes INJECT 1.8 [facility] (VICTOZA 3-30 MG UNDER ity of 3-CLARA) 0.6 00:00: THE SKIN [place] mg/0.1 mL 00 ONCE DAILY Medi josep (18 mg/3 EVERY Branch mL) MORNING injection liraglutide Yes INJECT 1.8 [facility] (VICTOZA 3-30 MG UNDER ity of 3-CLARA) 0.6 00:00: THE [place]IN [place] mg/0.1 mL 00 ONCE DAILY Medi josep (18 mg/3 EVERY Branch mL) MORNING injection liraglutide Yes INJECT 1.8 [facility] (VICTOZA 3-30 MG UNDER ity of 3-CLARA) 0.6 00:00: THE SKIN [place] mg/0.1 mL 00 ONCE DAILY Medi josep (18 mg/3 EVERY Branch mL) MORNING injection liraglutide Yes INJECT 1.8 [facility] (VICTOZA 3-30 MG UNDER ity of 3-CLARA) 0.6 00:00: THE [place]IN [place] mg/0.1 mL 00 ONCE DAILY Medi josep (18 mg/3 EVERY Branch mL) MORNING injection liraglutide Yes INJECT 1.8 [facility] (VICTOZA 3-30 MG UNDER ity of 3-CLARA) 0.6 00:00: THE [place]IN [place] mg/0.1 mL 00 ONCE DAILY Medi josep (18 mg/3 EVERY Branch mL) MORNING injection liraglutide 2022- No INJECT 1.8 [facility] (VICTOZA 3-30 02-08 MG UNDER ity of 3-CLARA) 0.6 00:00: 00:00 THE SKIN [place] mg/0.1 mL 00 :00 ONCE DAILY Medi josep (18 mg/3 EVERY Branch mL) MORNING injection liraglutide 2022- No INJECT 1.8 [facility] (VICTOZA 3-30 02-08 MG UNDER ity of 3-CLARA) 0.6 00:00: 00:00 [place] mg/0.1 mL 00 :00 ONCE DAILY Medi josep (18 mg/3 EVERY Branch mL) MORNING injection Immunizations Ordered Filled Immunization Date Status Comments [facility] e Immunization Name Name TDAP 2023-01-10 Completed [facility] 00:00:00 [place] [facility] TDAP 2023-01-10 Completed [facility] 00:00:00 [place] [facility] TDAP 2023-01-10 Completed [facility] 00:00:00 [place] [facility] TDAP 2023-01-10 Completed [facility] 00:00:00 [place] [facility] TDAP 2023-01-10 Completed [facility] 00:00:00 [place] [facility] TDAP 2023-01-10 Completed [facility] 00:00:00 [place] [facility] TDAP 2023-01-10 Completed [facility] 00:00:00 [place] [facility] TDAP 2023-01-10 Completed [facility] 00:00:00 [place] [facility] TDAP 2023-01-10 Completed [facility] 00:00:00 [place] [facility] TDAP 2023-01-10 Completed [facility] 00:00:00 [facility] TDAP 2022-01-16 Completed [facility] of 00:00:00 [place] [facility] TDAP 2022-01-16 Completed [facility] 00:00:00 [place] [facility] TDAP 2022-01-16 Completed [facility] 00:00:00 [place] [facility] TDAP 2022-01-16 Completed [facility] 00:00:00 [place] [facility] TDAP 2022-01-16 Completed [facility] 00:00:00 [place] [facility] TDAP 2022-01-16 Completed [facility] 00:00:00 [place] [facility] TDAP 2022-01-16 Completed [facility] 00:00:00 [place] [facility] TDAP 2022-01-16 Completed [facility] 00:00:00 [place] [facility] TDAP 2022-01-16 Completed [facility] 00:00:00 [place] [facility] TDAP 2022-01-16 Completed [facility] 00:00:00 [place] [facility] TDAP 2022-01-16 Completed [facility] 00:00:00 [place] [facility] TDAP 2022-01-16 Completed [facility] 00:00:00 [place] [facility] TDAP 2022-01-16 Completed [facility] 00:00:00 [place] [facility] TDAP 2022-01-16 Completed [facility] 00:00:00 [place] [facility] TDAP 2022-01-16 Completed [facility] 00:00:00 [place] [facility] TDAP 2022-01-16 Completed [facility] 00:00:00 [place] [facility] TDAP 2022-01-16 Completed [facility] 00:00:00 [place] [facility] TDAP 2022-01-16 Completed [facility] 00:00:00 [place] [facility] TDAP 2022-01-16 Completed [facility] 00:00:00 [place] [facility] TDAP 2022-01-16 Completed [facility] of 00:00:00 [facility] TDAP 2022-01-16 Completed [facility] of 00:00:00 [place] [facility] TDAP 2022-01-16 Completed [facility] of 00:00:00 [facility] TDAP 2022-01-16 Completed [facility] 00:00:00 [facility] TDAP 2022-01-16 Completed [facility] 00:00:00 [facility] TDAP 2022-01-16 Completed [facility] 00:00:00 [facility] TDAP 2022-01-16 Completed [facility] 00:00:00 [facility] TDAP 2022-01-16 Completed [facility] 00:00:00 [facility] TDAP 2022-01-16 Completed [facility] 00:00:00 [facility] TDAP 2022-01-16 Completed [facility] 00:00:00 [facility] TDAP 2022-01-16 Completed [facility] 00:00:00 [facility] TDAP 2022-01-16 Completed [facility] 00:00:00 [facility] TDAP 2022-01-16 Completed [facility] 00:00:00 [facility] TDAP 2022-01-16 Completed [facility] 00:00:00 [facility] TDAP 2022-01-16 Completed [facility] 00:00:00 [facility] TDAP 2022-01-16 Completed [facility] 00:00:00 [facility] TDAP 2022-01-16 Completed [facility] 00:00:00 [facility] TDAP 2022-01-16 Completed [facility] 00:00:00 [facility] TDAP 2022-01-16 Completed [facility] 00:00:00 [facility] TDAP 2022-01-16 Completed [facility] 00:00:00 [facility] SARS-COV-2 COVID-19 2021-07-12 Completed [facility] VACCINE 00:00:00 [facility] SARS-COV-2 COVID-19 2021-07-12 Completed [facility] VACCINE 00:00:00 [facility] SARS-COV-2 COVID-19 2021-07-12 Completed [facility] VACCINE 00:00:00 [facility] Branch SARS-COV-2 COVID-19 2021-07-12 Completed [facility] VACCINE 00:00:00 [facility] SARS-COV-2 COVID-19 2021-07-12 Completed [facility] of [facility] 12+ YRS 00:00:00 [facility] ical VACCINE Branch SARS-COV-2 COVID-19 2021-07-12 Completed [facility] 12+ YRS 00:00:00 [place] [facility] SARS-COV-2 COVID-19 2021-07-12 Completed [facility] 12+ YRS 00:00:00 [facility] ical VACCINE Branch SARS-COV-2 COVID-19 2021-07-12 Completed [facility] 12+ YRS 00:00:00 [place] [facility] SARS-COV-2 COVID-19 2021-07-12 Completed [facility] 12+ YRS 00:00:00 [place] [facility] SARS-COV-2 COVID-19 2021-07-12 Completed [facility] 12+ YRS 00:00:00 [place] [facility] SARS-COV-2 COVID-19 2021-07-12 Completed [facility] 12+ YRS 00:00:00 [facility] ical VACCINE Branch SARS-COV-2 COVID-19 2021-07-12 Completed [facility] 12+ YRS 00:00:00 [place] [facility] SARS-COV-2 COVID-19 2021-07-12 Completed [facility] 12+ YRS 00:00:00 [place] [facility] SARS-COV-2 COVID-19 2021-07-12 Completed [facility] 12+ YRS 00:00:00 [place] [facility] SARS-COV-2 COVID-19 2021-07-12 Completed [facility] 12+ YRS 00:00:00 [place] [facility] SARS-COV-2 COVID-19 2021-07-12 Completed [facility] 12+ YRS 00:00:00 [place] [facility] SARS-COV-2 COVID-19 2021-07-12 Completed [facility] 12+ YRS 00:00:00 [place] [facility] SARS-COV-2 COVID-19 2021-07-12 Completed [facility] 12+ YRS 00:00:00 [place] [facility] SARS-COV-2 COVID-19 2021-07-12 Completed [facility] 12+ YRS 00:00:00 [place] [facility] SARS-COV-2 COVID-19 2021-07-12 Completed [facility] 12+ YRS 00:00:00 [place] [facility] SARS-COV-2 COVID-19 2021-07-12 Completed [facility] 12+ YRS 00:00:00 [place] [facility] SARS-COV-2 COVID-19 2021-07-12 Completed [facility] 12+ YRS 00:00:00 [place] [facility] SARS-COV-2 COVID-19 2021-07-12 Completed [facility] 12+ YRS 00:00:00 [place] [facility] SARS-COV-2 COVID-19 2021-07-12 Completed [facility] 12+ YRS 00:00:00 [place] [facility] SARS-COV-2 COVID-19 2021-07-12 Completed [facility] 12+ YRS 00:00:00 [place] [facility] SARS-COV-2 COVID-19 2021-07-12 Completed [facility] 12+ YRS 00:00:00 [place] [facility] SARS-COV-2 COVID-19 2021-07-12 Completed [facility] 12+ YRS 00:00:00 [place] [facility] SARS-COV-2 COVID-19 2021-07-12 Completed [facility] 12+ YRS 00:00:00 [place] [facility]INE [facility] SARS-COV-2 COVID-19 2021-07-12 Completed [facility] 12+ YRS 00:00:00 [place] [facility] SARS-COV-2 COVID-19 2021-07-12 Completed [facility] 12+ YRS 00:00:00 [place] [facility] SARS-COV-2 COVID-19 2021-07-12 Completed [facility] 12+ YRS 00:00:00 [place] [facility] SARS-COV-2 COVID-19 2021-07-12 Completed [facility] 12+ YRS 00:00:00 [place] [facility] SARS-COV-2 COVID-19 2021-07-12 Completed [facility] 12+ YRS 00:00:00 [place] [facility] SARS-COV-2 COVID-19 2021-07-12 Completed [facility] 12+ YRS 00:00:00 [place] [facility] SARS-COV-2 COVID-19 2021-07-12 Completed [facility] 12+ YRS 00:00:00 [place] [facility] SARS-COV-2 COVID-19 2021-07-12 Completed [facility] 12+ YRS 00:00:00 [place] [facility] SARS-COV-2 COVID-19 2021-07-12 Completed [facility] 12+ YRS 00:00:00 [place] [facility] SARS-COV-2 COVID-19 2021-07-12 Completed [facility] 12+ YRS 00:00:00 [place] [facility] SARS-COV-2 COVID-19 2021-07-12 Completed [facility] 12+ YRS 00:00:00 [place] [facility] SARS-COV-2 COVID-19 2021-07-12 Completed [facility] 12+ YRS 00:00:00 [facility] Influenza High Dose 2021-06-15 Completed [facility] 00:00:00 [facility] Influenza High Dose 2021-06-15 Completed [facility] 00:00:00 [facility] Influenza High Dose 2021-06-15 Completed [facility] 00:00:00 [facility] Influenza High Dose 2021-06-15 Completed [facility] 00:00:00 [facility] Influenza High Dose 2021-06-15 Completed [facility] 00:00:00 [facility] Influenza High Dose 2021-06-15 Completed [facility] 00:00:00 [facility] Influenza High Dose 2021-06-15 Completed [facility] 00:00:00 [facility] Influenza High Dose 2021-06-15 Completed [facility] 00:00:00 [facility] Influenza High Dose 2021-06-15 Completed [facility] 00:00:00 [facility] Influenza High Dose 2021-06-15 Completed [facility] 00:00:00 [facility] Influenza High Dose 2021-06-15 Completed [facility] 00:00:00 [facility] Influenza High Dose 2021-06-15 Completed [facility] 00:00:00 [facility] Influenza High Dose 2021-06-15 Completed [facility] 00:00:00 [facility] Influenza High Dose 2021-06-15 Completed [facility] 00:00:00 [facility] Influenza High Dose 2021-06-15 Completed [facility] 00:00:00 [facility] Influenza High Dose 2021-06-15 Completed [facility] 00:00:00 [facility] Influenza High Dose 2021-06-15 Completed [facility] 00:00:00 [facility] Influenza High Dose 2021-06-15 Completed [facility] 00:00:00 [facility] Influenza High Dose 2021-06-15 Completed [facility] 00:00:00 [facility] Influenza High Dose 2021-06-15 Completed [facility] 00:00:00 [facility] Influenza High Dose 2021-06-15 Completed [facility] 00:00:00 [facility] Influenza High Dose 2021-06-15 Completed [facility] 00[facility]00:00 [facility] Influenza High Dose 2021-06-15 Completed [facility] 00:00:00 [facility] Influenza High Dose 2021-06-15 Completed [facility] 00:00:00 [facility] Influenza High Dose 2021-06-15 Completed [facility] 00:00:00 [facility] Influenza High Dose 2021-06-15 Completed [facility] 00:00:00 [facility] Influenza High Dose 2021-06-15 Completed [facility] 00:00:00 [facility] Influenza High Dose 2021-06-15 Completed [facility] 00:00:00 [facility] Influenza High Dose 2021-06-15 Completed [facility] 00:00:00 [facility] Influenza High Dose 2021-06-15 Completed [facility] 00:00:00 [facility] Influenza High Dose 2021-06-15 Completed [facility] 00:00:00 [facility] Influenza High Dose 2021-06-15 Completed [facility] 00:00:00 [facility] Influenza High Dose 2021-06-15 Completed [facility] 00:00:00 [facility] Influenza High Dose 2021-06-15 Completed [facility] 00:00:00 [facility] Influenza High Dose 2021-06-15 Completed [facility] 00:00:00 [facility] Influenza High Dose 2021-06-15 Completed [facility] 00:00:00 [facility] Influenza High Dose 2021-06-15 Completed [facility] 00:00:00 [facility] Influenza High Dose 2021-06-15 Completed [facility] 00:00:00 [facility] Influenza High Dose 2021-06-15 Completed [facility] 00:00:00 [facility] Influenza High Dose 2021-06-15 Completed [facility] 00:00:00 [facility] SARS-COV-2 COVID-19 2020-11-15 Completed [facility] VACCINE 00:00:00 [place] [facility] SARS-COV-2 COVID-19 2020-11-15 Completed [facility] VACCINE 00:00:00 [place] [facility] SARS-COV-2 COVID-19 2020-11-15 Completed [facility] VACCINE 00:00:00 [place] [facility] SARS-COV-2 COVID-19 2020-11-15 Completed [facility] VACCINE 00:00:00 [place] [facility] SARS-COV-2 COVID-19 2020-11-15 Completed [facility] 12+ YRS 00:00:00 [place] [facility] SARS-COV-2 COVID-19 2020-11-15 Completed [facility] 12+ YRS 00:00:00 [place] [facility] SARS-COV-2 COVID-19 2020-11-15 Completed [facility] 12+ YRS 00:00:00 [place] [facility] SARS-COV-2 COVID-19 2020-11-15 Completed [facility] 12+ YRS 00:00:00 [place] [facility] SARS-COV-2 COVID-19 2020-11-15 Completed [facility] 12+ YRS 00:00:00 [place] [facility] SARS-COV-2 COVID-19 2020-11-15 Completed [facility] 12+ YRS 00:00:00 [place] [facility] SARS-COV-2 COVID-19 2020-11-15 Completed [facility] 12+ YRS 00:00:00 [place] [facility] SARS-COV-2 COVID-19 2020-11-15 Completed [facility] 12+ YRS 00:00:00 [place] [facility] SARS-COV-2 COVID-19 2020-11-15 Completed [facility] 12+ YRS 00:00:00 [place] [facility] SARS-COV-2 COVID-19 2020-11-15 Completed [facility] 12+ YRS 00:00:00 [place] [facility] SARS-COV-2 COVID-19 2020-11-15 Completed [facility] 12+ YRS 00:00:00 [place] [facility] SARS-COV-2 COVID-19 2020-11-15 Completed [facility] 12+ YRS 00:00:00 [place] [facility] SARS-COV-2 COVID-19 2020-11-15 Completed [facility] 12+ YRS 00:00:00 [place] [facility] SARS-COV-2 COVID-19 2020-11-15 Completed [facility] 12+ YRS 00:00:00 [place] [facility] SARS-COV-2 COVID-19 2020-11-15 Completed [facility] 12+ YRS 00:00:00 [place] [facility] SARS-COV-2 COVID-19 2020-11-15 Completed [facility] 12+ YRS 00:00:00 [place] [facility] SARS-COV-2 COVID-19 2020-11-15 Completed [facility] 12+ YRS 00:00:00 [place] [facility] SARS-COV-2 COVID-19 2020-11-15 Completed [facility] 12+ YRS 00:00:00 [place] [facility] SARS-COV-2 COVID-19 2020-11-15 Completed [facility] 12+ YRS 00:00:00 [place] [facility] SARS-COV-2 COVID-19 2020-11-15 Completed [facility] 12+ YRS 00:00:00 [place] [facility] SARS-COV-2 COVID-19 2020-11-15 Completed [facility] 12+ YRS 00:00:00 [place] [facility] SARS-COV-2 COVID-19 2020-11-15 Completed [facility] 12+ YRS 00:00:00 [place] [facility] SARS-COV-2 COVID-19 2020-11-15 Completed [facility] 12+ YRS 00:00:00 [place] [facility] SARS-COV-2 COVID-19 2020-11-15 Completed [facility] 12+ YRS 00:00:00 [place] [facility] SARS-COV-2 COVID-19 2020-11-15 Completed [facility] 12+ YRS 00:00:00 [place] [facility] SARS-COV-2 COVID-19 2020-11-15 Completed [facility] 12+ YRS 00:00:00 [place] [facility] SARS-COV-2 COVID-19 2020-11-15 Completed [facility] 12+ YRS 00:00:00 [place] [facility] SARS-COV-2 COVID-19 2020-11-15 Completed [facility] 12+ YRS 00:00:00 [place] [facility] SARS-COV-2 COVID-19 2020-11-15 Completed [facility] 12+ YRS 00:00:00 [place] [facility] SARS-COV-2 COVID-19 2020-11-15 Completed [facility] 12+ YRS 00:00:00 [place] [facility] SARS-COV-2 COVID-19 2020-11-15 Completed [facility] 12+ YRS 00:00:00 [place] [facility] SARS-COV-2 COVID-19 2020-11-15 Completed [facility] 12+ YRS 00:00:00 [place] [facility] SARS-COV-2 COVID-19 2020-11-15 Completed [facility] 12+ YRS 00:00:00 [place] [facility] SARS-COV-2 COVID-19 2020-11-15 Completed [facility] 12+ YRS 00:00:00 [place] [facility] SARS-COV-2 COVID-19 2020-11-15 Completed [facility] 12+ YRS 00:00:00 [place] [facility] SARS-COV-2 COVID-19 2020-11-15 Completed [facility] 12+ YRS 00:00:00 [place] [facility] SARS-COV-2 COVID-19 2020-10-18 Completed [facility] VACCINE 00:00:00 [place] [facility] SARS-COV-2 COVID-19 2020-10-18 Completed [facility] VACCINE 00:00:00 [place] [facility] SARS-COV-2 COVID-19 2020-10-18 Completed [facility] VACCINE 00:00:00 [place] [facility] SARS-COV-2 COVID-19 2020-10-18 Completed [facility] VACCINE 00:00:00 [place] [facility] SARS-COV-2 COVID-19 2020-10-18 Completed [facility] 12+ YRS 00:00:00 [place] [facility] SARS-COV-2 COVID-19 2020-10-18 Completed [facility] 12+ YRS 00:00:00 [place] [facility] SARS-COV-2 COVID-19 2020-10-18 Completed [facility] 12+ YRS 00:00:00 [place] [facility] SARS-COV-2 COVID-19 2020-10-18 Completed [facility] 12+ YRS 00:00:00 [place] [facility] SARS-COV-2 COVID-19 2020-10-18 Completed [facility] 12+ YRS 00:00:00 [place] [facility] SARS-COV-2 COVID-19 2020-10-18 Completed [facility] 12+ YRS 00:00:00 [place] [facility] SARS-COV-2 COVID-19 2020-10-18 Completed [facility] 12+ YRS 00:00:00 [place] [facility] SARS-COV-2 COVID-19 2020-10-18 Completed [facility] 12+ YRS 00:00:00 [place] [facility] SARS-COV-2 COVID-19 2020-10-18 Completed [facility] 12+ YRS 00:00:00 [place] [facility] SARS-COV-2 COVID-19 2020-10-18 Completed [facility] 12+ YRS 00:00:00 [place] [facility] SARS-COV-2 COVID-19 2020-10-18 Completed [facility] 12+ YRS 00:00:00 [place] [facility] SARS-COV-2 COVID-19 2020-10-18 Completed [facility] 12+ YRS 00:00:00 [place] [facility] SARS-COV-2 COVID-19 2020-10-18 Completed [facility] 12+ YRS 00:00:00 [place] [facility] SARS-COV-2 COVID-19 2020-10-18 Completed [facility] 12+ YRS 00:00:00 [place] [facility] SARS-COV-2 COVID-19 2020-10-18 Completed [facility] 12+ YRS 00:00:00 [place] [facility] SARS-COV-2 COVID-19 2020-10-18 Completed [facility] 12+ YRS 00:00:00 [place] [facility] SARS-COV-2 COVID-19 2020-10-18 Completed [facility] 12+ YRS 00:00:00 [place] [facility] SARS-COV-2 COVID-19 2020-10-18 Completed [facility] 12+ YRS 00:00:00 [place] [facility] SARS-COV-2 COVID-19 2020-10-18 Completed [facility] 12+ YRS 00:00:00 [place] [facility] SARS-COV-2 COVID-19 2020-10-18 Completed [facility] 12+ YRS 00:00:00 [place] [facility] SARS-COV-2 COVID-19 2020-10-18 Completed [facility] 12+ YRS 00:00:00 [place] [facility] SARS-COV-2 COVID-19 2020-10-18 Completed [facility] 12+ YRS 00:00:00 [place] [facility] SARS-COV-2 COVID-19 2020-10-18 Completed [facility] 12+ YRS 00:00:00 [place] [facility] SARS-COV-2 COVID-19 2020-10-18 Completed [facility] 12+ YRS 00:00:00 [place] [facility] SARS-COV-2 COVID-19 2020-10-18 Completed [facility] 12+ YRS 00:00:00 [place] [facility] SARS-COV-2 COVID-19 2020-10-18 Completed [facility] 12+ YRS 00:00:00 [place] [facility] SARS-COV-2 COVID-19 2020-10-18 Completed [facility] 12+ YRS 00:00:00 [place] [facility] SARS-COV-2 COVID-19 2020-10-18 Completed [facility] 12+ YRS 00:00:00 [place] [facility] SARS-COV-2 COVID-19 2020-10-18 Completed [facility] 12+ YRS 00:00:00 [place] [facility] SARS-COV-2 COVID-19 2020-10-18 Completed [facility] 12+ YRS 00:00:00 [place] [facility] SARS-COV-2 COVID-19 2020-10-18 Completed [facility] 12+ YRS 00:00:00 [place] [facility] SARS-COV-2 COVID-19 2020-10-18 Completed [facility] 12+ YRS 00:00:00 [place] [facility] SARS-COV-2 COVID-19 2020-10-18 Completed [facility] 12+ YRS 00:00:00 [place] [facility] SARS-COV-2 COVID-19 2020-10-18 Completed [facility] 12+ YRS 00:00:00 [facility] ical VACCINE Branch SARS-COV-2 COVID-19 2020-10-18 Completed [facility] of [facility] 12+ YRS 00:00:00 [facility] ical VACCINE Branch SARS-COV-2 COVID-19 2020-10-18 Completed [facility] 12+ YRS 00:00:00 [facility] VACCINE Branch Influenza High Dose 2020-05-27 Completed [facility] of 00:00:00 [facility] Influenza High Dose 2020-05-27 Completed [facility] 00:00:00 [facility] Influenza High Dose 2020-05-27 Completed [facility] of 00:00:00 [facility] Influenza High Dose 2020-05-27 Completed [facility] 00:00:00 [facility] Influenza High Dose 2020-05-27 Completed [facility] of 00:00:00 [facility] Influenza High Dose 2020-05-27 Completed [facility] 00:00:00 [facility] Influenza High Dose 2020-05-27 Completed [facility] of 00:00:00 [facility] Influenza High Dose 2020-05-27 Completed [facility] 00:00:00 [facility] Influenza High Dose 2020-05-27 Completed [facility] of 00:00:00 [facility] Influenza High Dose 2020-05-27 Completed [facility] 00:00:00 [facility] Influenza High Dose 2020-05-27 Completed [facility] of 00:00:00 [facility] Influenza High Dose 2020-05-27 Completed [facility] 00:00:00 [facility] Influenza High Dose 2020-05-27 Completed [facility] of 00:00:00 [facility] Influenza High Dose 2020-05-27 Completed [facility] 00:00:00 [facility] Influenza High Dose 2020-05-27 Completed [facility] of 00:00:00 [facility] Influenza High Dose 2020-05-27 Completed [facility] 00:00:00 [facility] Influenza High Dose 2020-05-27 Completed [facility] of 00:00:00 [facility] Influenza High Dose 2020-05-27 Completed [facility] 00:00:00 [facility] Influenza High Dose 2020-05-27 Completed [facility] of 00:00:00 [facility] Influenza High Dose 2020-05-27 Completed [facility] 00:00:00 [facility] Influenza High Dose 2020-05-27 Completed [facility] of 00:00:00 [facility] Influenza High Dose 2020-05-27 Completed [facility] 00:00:00 [facility] Influenza High Dose 2020-05-27 Completed [facility] of 00:00:00 [facility] Influenza High Dose 2020-05-27 Completed [facility] 00:00:00 [facility] Influenza High Dose 2020-05-27 Completed [facility] of 00:00:00 [facility] Influenza High Dose 2020-05-27 Completed [facility] 00:00:00 [facility] Influenza High Dose 2020-05-27 Completed [facility] of 00:00:00 [facility] Influenza High Dose 2020-05-27 Completed [facility] 00:00:00 [facility] Influenza High Dose 2020-05-27 Completed [facility] of 00:00:00 [facility] Influenza High Dose 2020-05-27 Completed [facility] 00:00:00 [facility] Influenza High Dose 2020-05-27 Completed [facility] of 00:00:00 [facility] Influenza High Dose 2020-05-27 Completed [facility] 00:00:00 [facility] Influenza High Dose 2020-05-27 Completed [facility] of 00:00:00 [facility] Influenza High Dose 2020-05-27 Completed [facility] 00:00:00 [facility] Influenza High Dose 2020-05-27 Completed [facility] of 00:00:00 [facility] Influenza High Dose 2020-05-27 Completed [facility] 00:00:00 [facility] Influenza High Dose 2020-05-27 Completed [facility] of 00:00:00 [facility] Influenza High Dose 2020-05-27 Completed [facility] 00:00:00 [facility] Influenza High Dose 2020-05-27 Completed [facility] of 00:00:00 [facility] Influenza High Dose 2020-05-27 Completed [facility] 00:00:00 [facility] Influenza High Dose 2020-05-27 Completed [facility] of 00:00:00 [facility] Influenza High Dose 2020-05-27 Completed [facility] 00:00:00 [facility] Influenza High Dose 2020-05-27 Completed [facility] of 00:00:00 [facility] Influenza High Dose 2020-05-27 Completed [facility] 00:00:00 [facility] Influenza High Dose 2020-05-27 Completed [facility] of 00:00:00 [facility] Influenza High Dose 2020-05-27 Completed [facility] 00:00:00 [facility] Influenza High Dose 2020-05-27 Completed [facility] of 00:00:00 [facility] Influenza High Dose 2020-05-27 Completed [facility] 00:00:00 [facility] Influenza High Dose 2020-05-27 Completed [facility] 00:00:00 [facility] [facility] Influenza High Dose 2020-05-27 Completed [facility] 00[facility]00:00 [facility] Influenza High Dose 2020-05-27 Completed [facility] 00:00:00 [facility] Influenza High Dose 2020-05-27 Completed [facility] 00:00:00 [facility] Influenza High Dose 2020-05-27 Completed [facility] 00:00:00 [facility] Influenza High Dose 2020-05-27 Completed [facility] 00:00:00 [facility] Influenza High Dose 2020-05-27 Completed [facility] 00:00:00 [facility] Influenza High Dose 2020-05-27 Completed [facility] [place] 00:00:00 [facility] Influenza High Dose 2020-05-27 Completed [facility] of 00:00:00 [facility] Influenza High Dose 2020-05-27 Completed [facility] [place] 00:00:00 [facility] Influenza High Dose 2020-05-27 Completed [facility] of 00:00:00 [facility] Influenza High Dose 2020-05-27 Completed [facility] 00:00:00 [facility] Influenza High Dose 2020-05-27 Completed [facility] 00:00:00 [facility] Influenza High Dose 2020-05-27 Completed [facility] 00:00:00 [facility] Influenza High Dose 2020-05-27 Completed [facility] 00:00:00 [facility] Influenza High Dose 2020-05-27 Completed [facility] [place] 00:00:00 [facility] Influenza High Dose 2020-05-27 Completed [facility] of 00:00:00 [facility] Influenza High Dose 2020-05-27 Completed [facility] 00:00:00 [facility] Influenza High Dose 2020-05-27 Completed [facility] 00:00:00 [facility] Influenza High Dose 2020-05-27 Completed [facility] 00:00:00 [facility] Influenza High Dose 2020-05-27 Completed [facility] 00:00:00 [facility] Influenza High Dose 2020-05-27 Completed [facility] 00:00:00 [facility] Influenza High Dose 2020-05-27 Completed [facility] 00:00:00 [facility] Influenza High Dose 2020-05-27 Completed [facility] 00:00:00 [facility] Influenza High Dose 2020-05-27 Completed [facility] 00:00:00 [facility] Influenza High Dose 2020-05-27 Completed [facility] 00:00:00 [facility] Influenza High Dose 2020-05-27 Completed [facility] 00:00:00 [facility] Influenza High Dose 2020-05-27 Completed [facility] 00:00:00 [facility] Influenza High Dose 2020-05-27 Completed [facility] 00:00:00 [facility] Influenza High Dose 2020-05-27 Completed [facility] 00:00:00 [facility] Influenza High Dose 2020-05-27 Completed [facility] 00:00:00 [facility] Influenza High Dose 2020-05-27 Completed [facility] 00:00:00 [facility] Zoster Vaccine 2019-12-25 Completed [facility] Recombinant 00:00:00 [facility] Zoster Vaccine 2019-12-25 Completed [facility] Recombinant 00:00:00 [facility] Zoster Vaccine 2019-12-25 Completed [facility] Recombinant 00:00:00 [facility] Zoster Vaccine 2019-12-25 Completed [facility] Recombinant 00:00:00 [facility] Zoster Vaccine 2019-12-25 Completed [facility] Recombinant 00:00:00 [facility] Zoster Vaccine 2019-12-25 Completed [facility] Recombinant 00:00:00 [facility] Zoster Vaccine 2019-12-25 Completed [facility] Recombinant 00:00:00 [facility] Zoster Vaccine 2019-12-25 Completed [facility] Recombinant 00:00:00 [facility] Zoster Vaccine 2019-12-25 Completed [facility] Recombinant 00:00:00 [facility] Zoster Vaccine 2019-12-25 Completed [facility] Recombinant 00:00:00 [facility] Zoster Vaccine 2019-12-25 Completed [facility] Recombinant 00:00:00 [facility] Zoster Vaccine 2019-12-25 Completed [facility] Recombinant 00:00:00 [facility] Zoster Vaccine 2019-12-25 Completed [facility] Recombinant 00:00:00 [facility] Zoster Vaccine 2019-12-25 Completed [facility] Recombinant 00:00:00 [facility] Zoster Vaccine 2019-12-25 Completed [facility] Recombinant 00:00:00 [facility] Zoster Vaccine 2019-12-25 Completed [facility] Recombinant 00:00:00 [facility] Zoster Vaccine 2019-12-25 Completed [facility] Recombinant 00:00:00 [facility] Zoster Vaccine 2019-12-25 Completed [facility] Recombinant 00:00:00 [facility] Zoster Vaccine 2019-12-25 Completed [facility] Recombinant 00:00:00 [facility] Zoster Vaccine 2019-12-25 Completed [facility] Recombinant 00:00:00 [facility] Zoster Vaccine 2019-12-25 Completed [facility] Recombinant 00:00:00 [facility] Zoster Vaccine 2019-12-25 Completed [facility] Recombinant 00:00:00 [facility] Zoster Vaccine 2019-12-25 Completed [facility] Recombinant 00:00:00 [facility] Zoster Vaccine 2019-12-25 Completed [facility] Recombinant 00:00:00 [facility] Zoster Vaccine 2019-12-25 Completed [facility] Recombinant 00:00:00 [facility] Zoster Vaccine 2019-12-25 Completed [facility] Recombinant 00:00:00 [facility] Zoster Vaccine 2019-12-25 Completed [facility] Recombinant 00:00:00 [facility] Zoster Vaccine 2019-12-25 Completed [facility] Recombinant 00:00:00 [facility] Zoster Vaccine 2019-12-25 Completed [facility] Recombinant 00:00:00 [facility] Zoster Vaccine 2019-12-25 Completed [facility] Recombinant 00:00:00 [facility] Zoster Vaccine 2019-12-25 Completed [facility] Recombinant 00:00:00 [facility] Zoster Vaccine 2019-12-25 Completed [facility] Recombinant 00:00:00 [facility] Zoster Vaccine 2019-12-25 Completed [facility] Recombinant 00:00:00 [facility] Zoster Vaccine 2019-12-25 Completed [facility] Recombinant 00:00:00 [facility] Zoster Vaccine 2019-12-25 Completed [facility] Recombinant 00:00:00 [facility] Zoster Vaccine 2019-12-25 Completed [facility] Recombinant 00:00:00 [facility] Zoster Vaccine 2019-12-25 Completed [facility] Recombinant 00:00:00 [facility] Zoster Vaccine 2019-12-25 Completed [facility] Recombinant 00:00:00 [facility] Zoster Vaccine 2019-12-25 Completed [facility] Recombinant 00:00:00 [facility] Zoster Vaccine 2019-12-25 Completed [facility] Recombinant 00:00:00 [facility] Pneumococcal 13 2019-06-10 Completed [facility] Conjugate, PCV13 00:00:00 [place] [facility]Prevnar 13) [facility] Pneumococcal 13 2019-06-10 Completed [facility] Conjugate, PCV13 00:00:00 [place] [facility] (Prevnar 13) [facility] Pneumococcal 13 2019-06-10 Completed [facility] Conjugate, PCV13 00:00:00 [place] [facility] (Prevnar 13) [facility] Pneumococcal 13 2019-06-10 Completed [facility] Conjugate, PCV13 00:00:00 [place] [facility] (Prevnar 13) [facility] Pneumococcal 13 2019-06-10 Completed [facility] Conjugate, PCV13 00:00:00 [place] [facility] (Prevnar 13) [facility] Pneumococcal 13 2019-06-10 Completed [facility] Conjugate, PCV13 00:00:00 [place] [facility] (Prevnar 13) [facility] Pneumococcal 13 2019-06-10 Completed [facility] of Conjugate, PCV13 00:00:00 [place] [facility] (Prevnar 13) [facility] Pneumococcal 13 2019-06-10 Completed [facility] Conjugate, PCV13 00:00:00 [place] [facility] (Prevnar 13) [facility] Pneumococcal 13 2019-06-10 Completed [facility] Conjugate, PCV13 00:00:00 [place] [facility] (Prevnar 13) [facility] Pneumococcal 13 2019-06-10 Completed [facility] Conjugate, PCV13 00:00:00 [place] [facility] (Prevnar 13) [facility] Pneumococcal 13 2019-06-10 Completed [facility] Conjugate, PCV13 00:00:00 [place] [facility] (Prevnar 13) [facility] Pneumococcal 13 2019-06-10 Completed [facility] Conjugate, PCV13 00:00:00 [place] [facility] (Prevnar 13) [facility] Pneumococcal 13 2019-06-10 Completed [facility] Conjugate, PCV13 00:00:00 [place] [facility] (Prevnar 13) [facility] Pneumococcal 13 2019-06-10 Completed [facility] Conjugate, PCV13 00:00:00 [place] [facility] (Prevnar 13) [facility] Pneumococcal 13 2019-06-10 Completed [facility] Conjugate, PCV13 00:00:00 [place] [facility] (Prevnar 13) [facility] Pneumococcal 13 2019-06-10 Completed [facility] Conjugate, PCV13 00:00:00 [place] [facility] (Prevnar 13) [facility] Pneumococcal 13 2019-06-10 Completed [facility] Conjugate, PCV13 00:00:00 [place] [facility] (Prevnar 13) [facility] Pneumococcal 13 2019-06-10 Completed [facility] Conjugate, PCV13 00:00:00 [place] [facility] (Prevnar 13) [facility] Pneumococcal 13 2019-06-10 Completed [facility] Conjugate, PCV13 00:00:00 [place] [facility] (Prevnar 13) [facility] Pneumococcal 13 2019-06-10 Completed [facility] Conjugate, PCV13 00:00:00 [place] [facility] (Prevnar 13) [facility] Pneumococcal 13 2019-06-10 Completed [facility] Conjugate, PCV13 00:00:00 [place] [facility] (Prevnar 13) [facility] Pneumococcal 13 2019-06-10 Completed [facility] Conjugate, PCV13 00:00:00 [place] [facility] (Prevnar 13) [facility] Pneumococcal 13 2019-06-10 Completed [facility] Conjugate, PCV13 00:00:00 [place] [facility] (Prevnar 13) [facility] Pneumococcal 13 2019-06-10 Completed [facility] Conjugate, PCV13 00:00:00 [place] [facility] (Prevnar 13) [facility] Pneumococcal 13 2019-06-10 Completed [facility] Conjugate, PCV13 00:00:00 [place] [facility] (Prevnar 13) [facility] Pneumococcal 13 2019-06-10 Completed [facility] Conjugate, PCV13 00:00:00 [place] [facility] (Prevnar 13) [facility] Pneumococcal 13 2019-06-10 Completed [facility] Conjugate, PCV13 00:00:00 [place] [facility] (Prevnar 13) [facility] Pneumococcal 13 2019-06-10 Completed [facility] Conjugate, PCV13 00:00:00 [place] [facility] (Prevnar 13) [facility] Pneumococcal 13 2019-06-10 Completed [facility] Conjugate, PCV13 00:00:00 [place] [facility] (Prevnar 13) [facility] Pneumococcal 13 2019-06-10 Completed [facility] Conjugate, PCV13 00:00:00 [place] [facility] (Prevnar 13) [facility] Pneumococcal 13 2019-06-10 Completed [facility] Conjugate, PCV13 00:00:00 [place] [facility] (Prevnar 13) [facility] Pneumococcal 13 2019-06-10 Completed [facility] Conjugate, PCV13 00:00:00 [place] [facility] (Prevnar 13) [facility] Pneumococcal 13 2019-06-10 Completed [facility] Conjugate, PCV13 00:00:00 [place] [facility] (Prevnar 13) [facility] Pneumococcal 13 2019-06-10 Completed [facility] Conjugate, PCV13 00:00:00 [place] [facility] (Prevnar 13) [facility] Pneumococcal 13 2019-06-10 Completed [facility] Conjugate, PCV13 00:00:00 [place] [facility] (Prevnar 13) [facility] Pneumococcal 13 2019-06-10 Completed [facility] Conjugate, PCV13 00:00:00 [place] [facility] (Prevnar 13) [facility] Pneumococcal 13 2019-06-10 Completed [facility] Conjugate, PCV13 00:00:00 [place] [facility] (Prevnar 13) [facility] Pneumococcal 13 2019-06-10 Completed [facility] Conjugate, PCV13 00:00:00 [place] [facility] (Prevnar 13) [facility] Pneumococcal 13 2019-06-10 Completed [facility] of Conjugate, PCV13 00:00:00 [facility] dical (Prevnar 13) Branch Pneumococcal 13 2019-06-10 Completed [facility] of Conjugate, PCV13 00:00:00 [facility] dical (Prevnar 13) Branch Zoster Vaccine 2019-05-31 Completed [facility] Recombinant 00:00:00 [facility] Zoster Vaccine 2019-05-31 Completed [facility] Recombinant 00:00:00 [facility] Zoster Vaccine 2019-05-31 Completed [facility] Recombinant 00:00:00 [facility] Zoster Vaccine 2019-05-31 Completed [facility] Recombinant 00:00:00 [facility] Zoster Vaccine 2019-05-31 Completed [facility] Recombinant 00:00:00 [facility] Zoster Vaccine 2019-05-31 Completed [facility] Recombinant 00:00:00 [facility] Zoster Vaccine 2019-05-31 Completed [facility] Recombinant 00:00:00 [facility] Zoster Vaccine 2019-05-31 Completed [facility] Recombinant 00:00:00 [facility] Zoster Vaccine 2019-05-31 Completed [facility] Recombinant 00:00:00 [facility] Zoster Vaccine 2019-05-31 Completed [facility] Recombinant 00:00:00 [facility] Zoster Vaccine 2019-05-31 Completed [facility] Recombinant 00:00:00 [facility] Zoster Vaccine 2019-05-31 Completed [facility] Recombinant 00:00:00 [facility] Zoster Vaccine 2019-05-31 Completed [facility] Recombinant 00:00:00 [facility] Zoster Vaccine 2019-05-31 Completed [facility] Recombinant 00:00:00 [facility] Zoster Vaccine 2019-05-31 Completed [facility] Recombinant 00:00:00 [facility] Zoster Vaccine 2019-05-31 Completed [facility] Recombinant 00:00:00 [facility] Zoster Vaccine 2019-05-31 Completed [facility] Recombinant 00:00:00 [facility] Zoster Vaccine 2019-05-31 Completed [facility] Recombinant 00:00:00 [facility] Zoster Vaccine 2019-05-31 Completed [facility] Recombinant 00:00:00 [facility] Zoster Vaccine 2019-05-31 Completed [facility] Recombinant 00:00:00 [facility] Zoster Vaccine 2019-05-31 Completed [facility] Recombinant 00:00:00 [facility] Zoster Vaccine 2019-05-31 Completed [facility] Recombinant 00:00:00 [facility] Zoster Vaccine 2019-05-31 Completed [facility] Recombinant 00:00:00 [facility] Zoster Vaccine 2019-05-31 Completed [facility] Recombinant 00:00:00 [facility] Zoster Vaccine 2019-05-31 Completed [facility] Recombinant 00:00:00 [facility] Zoster Vaccine 2019-05-31 Completed [facility] Recombinant 00:00:00 [facility] Zoster Vaccine 2019-05-31 Completed [facility] Recombinant 00:00:00 [facility] Zoster Vaccine 2019-05-31 Completed [facility] Recombinant 00:00:00 [facility] Zoster Vaccine 2019-05-31 Completed [facility] Recombinant 00:00:00 [facility] Zoster Vaccine 2019-05-31 Completed [facility] Recombinant 00:00:00 [facility] Zoster Vaccine 2019-05-31 Completed [facility] Recombinant 00:00:00 [facility] Zoster Vaccine 2019-05-31 Completed [facility] Recombinant 00:00:00 [facility] Zoster Vaccine 2019-05-31 Completed [facility] Recombinant 00:00:00 [facility] Zoster Vaccine 2019-05-31 Completed [facility] Recombinant 00:00:00 [facility] Zoster Vaccine 2019-05-31 Completed [facility] Recombinant 00:00:00 [facility] Zoster Vaccine 2019-05-31 Completed [facility] Recombinant 00:00:00 [facility] Zoster Vaccine 2019-05-31 Completed [facility] Recombinant 00:00:00 [facility] Zoster Vaccine 2019-05-31 Completed [facility] Recombinant 00:00:00 [facility] Zoster Vaccine 2019-05-31 Completed [facility] Recombinant 00:00:00 [facility] Zoster Vaccine 2019-05-31 Completed [facility] Recombinant 00:00:00 [facility] Influenza Virus 2019-05-30 Completed [facility] Vaccine 00:00:00 [facility] Influenza Virus 2019-05-30 Completed [facility] Vaccine 00:00:00 [facility] Influenza Virus 2019-05-30 Completed [facility] Vaccine 00:00:00 [facility] Influenza Virus 2019-05-30 Completed [facility] Vaccine 00:00:00 [facility] Influenza Virus 2019-05-30 Completed [facility] Vaccine 00:00:00 [facility] Influenza Virus 2019-05-30 Completed [facility] Vaccine 00:00:00 [facility] Influenza Virus 2019-05-30 Completed [facility] Vaccine 00:00:00 [facility] Influenza Virus 2019-05-30 Completed [facility] Vaccine 00:00:00 [facility] Influenza Virus 2019-05-30 Completed [facility] Vaccine 00:00:00 [facility] Influenza Virus 2019-05-30 Completed [facility] Vaccine 00:00:00 [facility] Influenza Virus 2019-05-30 Completed [facility] Vaccine 00:00:00 [facility] Influenza Virus 2019-05-30 Completed [facility] Vaccine 00:00:00 [facility] Influenza Virus 2019-05-30 Completed [facility] Vaccine 00:00:00 [facility] Influenza Virus 2019-05-30 Completed [facility] Vaccine 00:00:00 [facility] Influenza Virus 2019-05-30 Completed [facility] Vaccine 00:00:00 [facility] Influenza Virus 2019-05-30 Completed [facility] Vaccine 00:00:00 [facility] Influenza Virus 2019-05-30 Completed [facility] Vaccine 00:00:00 [facility] Influenza Virus 2019-05-30 Completed [facility] Vaccine 00:00:00 [facility] Influenza Virus 2019-05-30 Completed [facility] Vaccine 00:00:00 [facility] Influenza Virus 2019-05-30 Completed [facility] Vaccine 00:00:00 [facility] Influenza Virus 2019-05-30 Completed [facility] Vaccine 00:00:00 [facility] Influenza Virus 2019-05-30 Completed [facility] Vaccine 00:00:00 [facility] Influenza Virus 2019-05-30 Completed [facility] Vaccine 00:00:00 [facility] Influenza Virus 2019-05-30 Completed [facility] Vaccine 00:00:00 [facility] Influenza Virus 2019-05-30 Completed [facility] Vaccine 00:00:00 [facility] Influenza Virus 2019-05-30 Completed [facility] Vaccine 00:00:00 [facility] Influenza Virus 2019-05-30 Completed [facility] Vaccine 00:00:00 [facility] Influenza Virus 2019-05-30 Completed [facility] Vaccine 00:00:00 [facility] Influenza Virus 2019-05-30 Completed [facility] Vaccine 00:00:00 [facility] Influenza Virus 2019-05-30 Completed [facility] Vaccine 00:00:00 [facility] Influenza Virus 2019-05-30 Completed [facility] Vaccine 00:00:00 [facility] Influenza Virus 2019-05-30 Completed [facility] Vaccine 00:00:00 [facility] Influenza Virus 2019-05-30 Completed [facility] Vaccine 00:00:00 [facility] Influenza Virus 2019-05-30 Completed [facility] Vaccine 00:00:00 [facility] Influenza Virus 2019-05-30 Completed [facility] Vaccine 00:00:00 [facility] Influenza Virus 2019-05-30 Completed [facility] Vaccine 00:00:00 [facility] Influenza Virus 2019-05-30 Completed [facility] Vaccine 00:00:00 [facility] Influenza Virus 2019-05-30 Completed [facility] Vaccine 00:00:00 [facility] Influenza Virus 2019-05-30 Completed [facility] Vaccine 00:00:00 [facility] Influenza Virus 2019-05-30 Completed [facility] Vaccine 00:00:00 [facility] Zoster(Zostavax)( 2019-05-24 Completed [facility] of ingles) 00:00:00 [facility] Zoster(Zostavax)( 2019-05-24 Completed [facility] of ingles) 00:00:00 [facility] Zoster(Zostavax)( 2019-05-24 Completed [facility] of ingles) 00:00:00 [facility] Zoster(Zostavax)( 2019-05-24 Completed [facility] of ingles) 00:00:00 [facility] Zoster(Zostavax)( 2019-05-24 Completed [facility] of ingles) 00:00:00 [facility] Zoster(Zostavax)( 2019-05-24 Completed [facility] of ingles) 00:00:00 [facility] Zoster(Zostavax)( 2019-05-24 Completed [facility] of ingles) 00:00:00 [facility] Zoster(Zostavax)( 2019-05-24 Completed [facility] of ingles) 00:00:00 [facility] Zoster(Zostavax)( 2019-05-24 Completed [facility] rs[facility] of ingles) 00:00:00 [facility] Zoster(Zostavax)( 2019-05-24 Completed [facility] of ingles) 00:00:00 [facility] Zoster(Zostavax)( 2019-05-24 Completed [facility] of ingles) 00:00:00 [facility] Zoster(Zostavax)( 2019-05-24 Completed [facility] of ingles) 00:00:00 [facility] Zoster(Zostavax)( 2019-05-24 Completed [facility] of ingles) 00:00:00 [facility] Zoster(Zostavax)( 2019-05-24 Completed [facility] of ingles) 00:00:00 [facility] Zoster(Zostavax)( 2019-05-24 Completed [facility] of ingles) 00:00:00 [facility] Zoster(Zostavax)( 2019-05-24 Completed [facility] of ingles) 00:00:00 [facility] Zoster(Zostavax)( 2019-05-24 Completed [facility] of ingles) 00:00:00 [facility] Zoster(Zostavax)( 2019-05-24 Completed [facility] of ingles) 00:00:00 [facility] Zoster(Zostavax)( 2019-05-24 Completed [facility] of ingles) 00:00:00 [facility] Zoster(Zostavax)( 2019-05-24 Completed [facility] of ingles) 00:00:00 [facility] Zoster(Zostavax)( 2019-05-24 Completed [facility] of ingles) 00:00:00 [facility] Zoster(Zostavax)( 2019-05-24 Completed [facility] of ingles) 00:00:00 [facility] Zoster(Zostavax)( 2019-05-24 Completed [facility] of ingles) 00:00:00 [facility] Zoster(Zostavax)( 2019-05-24 Completed [facility] of ingles) 00:00:00 [facility] Zoster(Zostavax)( 2019-05-24 Completed [facility] of ingles) 00:00:00 [facility] Zoster(Zostavax)( 2019-05-24 Completed [facility] of ingles) 00:00:00 [facility] Zoster(Zostavax)( 2019-05-24 Completed [facility] of ingles) 00:00:00 [facility] Zoster(Zostavax)( 2019-05-24 Completed [facility] of ingles) 00:00:00 [facility] Zoster(Zostavax)( 2019-05-24 Completed [facility] of ingles) 00:00:00 [facility] Zoster(Zostavax)( 2019-05-24 Completed [facility] of ingles) 00:00:00 [facility] Zoster(Zostavax)( 2019-05-24 Completed [facility] of ingles) 00:00:00 [facility] Zoster(Zostavax)( 2019-05-24 Completed [facility] of ingles) 00:00:00 [facility] Zoster(Zostavax)( 2019-05-24 Completed [facility] of ingles) 00:00:00 [facility] Zoster(Zostavax)( 2019-05-24 Completed [facility] of ingles) 00:00:00 [facility] Zoster(Zostavax)( 2019-05-24 Completed Unive rsity of ingles) 00:00:00 [facility] Zoster(Zostavax)( 2019-05-24 Completed Unive rsity of ingles) 00:00:00 [facility] Zoster(Zostavax)( 2019-05-24 Completed Unive rsity of ingles) 00:00:00 [facility] Zoster(Zostavax)( 2019-05-24 Completed Unive rsity of ingles) 00:00:00 [facility] Zoster(Zostavax)( 2019-05-24 Completed Unive rsity of ingles) 00:00:00 [facility] Zoster(Zostavax)( 2019-05-24 Completed Unive rsity of ingles) 00:00:00 [facility] TDAP 2016-10-23 Completed University of 00:00:00 [facility] TDAP 2016-10-23 Completed University of 00:00:00 [facility] TDAP 2016-10-23 Completed University of 00:00:00 [facility] TDAP 2016-10-23 Completed University of 00:00:00 [facility] TDAP 2016-10-23 Completed University of 00:00:00 [facility] TDAP 2016-10-23 Completed University of 00:00:00 [facility] TDAP 2016-10-23 Completed University of 00:00:00 [facility] TDAP 2016-10-23 Completed University of 00:00:00 [facility] TDAP 2016-10-23 Completed University of 00:00:00 [facility] TDAP 2016-10-23 Completed University of 00:00:00 [facility] TDAP 2016-10-23 Completed University of 00:00:00 [facility] TDAP 2016-10-23 Completed University of 00:00:00 [facility] TDAP 2016-10-23 Completed University of 00:00:00 [facility] TDAP 2016-10-23 Completed University of 00:00:00 [facility] TDAP 2016-10-23 Completed University of 00:00:00 [facility] TDAP 2016-10-23 Completed University of 00:00:00 [facility] TDAP 2016-10-23 Completed University of 00:00:00 [facility] TDAP 2016-10-23 Completed University of 00:00:00 [facility] TDAP 2016-10-23 Completed University of 00:00:00 [facility] TDAP 2016-10-23 Completed University of 00:00:00 [facility] TDAP 2016-10-23 Completed University of 00:00:00 [facility] TDAP 2016-10-23 Completed University of 00:00:00 [facility] TDAP 2016-10-23 Completed University of 00:00:00 [facility] TDAP 2016-10-23 Completed University of 00:00:00 [facility] TDAP 2016-10-23 Completed University of 00:00:00 [facility] TDAP 2016-10-23 Completed University of 00:00:00 [facility] TDAP 2016-10-23 Completed University of 00:00:00 [facility] TDAP 2016-10-23 Completed University of 00:00:00 [facility] TDAP 2016-10-23 Completed University of 00:00:00 [facility] TDAP 2016-10-23 Completed University of 00:00:00 [facility] TDAP 2016-10-23 Completed University of 00:00:00 [facility] TDAP 2016-10-23 Completed University of 00:00:00 [facility] TDAP 2016-10-23 Completed University of 00:00:00 [facility] TDAP 2016-10-23 Completed University of 00:00:00 [facility] TDAP 2016-10-23 Completed University of 00:00:00 [facility] TDAP 2016-10-23 Completed University of 00:00:00 [facility] TDAP 2016-10-23 Completed University of 00:00:00 [facility] TDAP 2016-10-23 Completed University of 00:00:00 [facility] TDAP 2016-10-23 Completed University of 00:00:00 [facility] TDAP 2016-10-23 Completed University of 00:00:00 [facility] Vital Signs Vital Name Observation Time Observation Value Comments Source Systolic blood 2023-01-19 13:49:00 100 mm[Hg] Univer sity of pressure [facility] Diastolic blood 2023-01-19 13:49:00 65 mm[Hg] Unive rsity of [facility] Heart rate 2023-01-19 13:49:00 79 /min [facility] Body temperature 2023-01-19 13:49:00 37 [facility] 2023-01-19 13:49:00 172.7 cm [facility] Body weight 2023-01-19 13:49:00 82.555 kg [facility] BMI 2023-01-19 13:49:00 27.67 kg/m2 [facility] Systolic blood 2023-01-10 18:10:00 127 mm[Hg] Univer sity of pressure [facility] Diastolic blood 2023-01-10 18:10:00 84 mm[Hg] Unive rsity of pressure [facility] Heart rate 2023-01-10 18:10:00 85 /min Universi ty of [facility] Respiratory rate 2023-01-10 18:10:00 15 /min Univ ersity of [facility] Body height 2023-01-10 18:10:00 172.7 cm Universi ty [facility] Body weight 2023-01-10 18:10:00 83.961 kg Universi ty of [facility] BMI 2023-01-10 18:10:00 28.14 kg/m2 [facility] Systolic blood 2022-11-22 18:33:00 124 mm[Hg] Univer sity of pressure [facility] Diastolic blood 2022-11-22 18:33:00 84 mm[Hg] Unive rsity of pressure [facility] Heart rate 2022-11-22 18:33:00 89 /min Universi ty [facility] Body height 2022-11-22 18:33:00 167.6 cm [facility] Body weight 2022-11-22 18:33:00 82.464 kg Universi ty [facility] BMI 2022-11-22 18:33:00 29.34 kg/m2 [facility]i [facility] Oxygen saturation in 2022-11-22 18:33:00 94 /min University of Arterial blood by [facility] Pulse oximetry Branch Systolic blood 2022-10-31 19:12:00 105 mm[Hg] Univer sity of pressure [facility] Diastolic blood 2022-10-31 19:12:00 55 mm[Hg] Unive rsity of pressure [facility] Heart rate 2022-10-31 19:12:00 109 /min Universi ty of [facility] Body temperature 2022-10-31 19:12:00 37.33 Paty Univ ersity of [facility] Respiratory rate 2022-10-31 19:12:00 18 /min Univ ersity of [facility] Body height 2022-10-31 19:12:00 175.3 cm Universi ty [facility] Body weight 2022-10-31 19:12:00 81.557 kg Universi ty [facility] BMI 2022-10-31 19:12:00 26.55 kg/m2 [facility] Oxygen saturation in 2022-10-31 19:12:00 94 /min University of [facility]terial blood by [facility] [place] [facility] oxim[facility] Systolic blood 2022-10-19 15:33:00 110 mm[Hg] Univer sity of pressure [facility] Diastolic blood 2022-10-19 15:33:00 60 mm[Hg] Unive rsity of pressure [facility] Heart rate 2022-10-19 15:33:00 54 /min Universi ty of [facility] Body temperature 2022-10-19 15:33:00 35.83 Paty Univ ersity of [facility] Respiratory rate 2022-10-19 15:33:00 16 /min Univ ersity of [facility] Body height 2022-10-19 15:33:00 172.7 cm [facility]i [facility] Body weight 2022-10-19 15:33:00 83.643 kg [facility] BMI 2022-10-19 15:33:00 28.04 kg/m2 [facility] Systolic blood 2022-10-05 22:37:00 110 mm[Hg] Univer sity of pressure [facility] Diastolic blood 2022-10-05 22:37:00 64 mm[Hg] Unive rsity of pressure [facility] Heart rate 2022-10-05 22:37:00 80 /min [facility] Body temperature 2022-10-05 22:37:00 36.56 Paty Univ ersity of [facility] Respiratory rate 2022-10-05 22:37:00 18 /min Univ ersity of [facility] Body height 2022-10-05 22:37:00 170.2 cm [facility] Body weight 2022-10-05 22:37:00 80.468 kg [facility] BMI 2022-10-05 22:37:00 27.78 kg/m2 [facility] Oxygen saturation in 2022-10-05 22:37:00 98 /min University of [facility]terial blood by [place] [facility] P[facility]xim[facility] Heart rate 2022-09-22 15:47:00 71 /min Universi ty [facility] Oxygen saturation in 2022-09-22 15:47:00 98 /min University of [facility]ial blood by [place] [facility] P[facility] oxim[facility] Respiratory rate 2022-09-22 15:45:00 15 /min Univ ersity of [facility] Systolic blood 2022-09-22 15:21:00 105 mm[Hg] Univer sity of pressure [facility] Diastolic blood 2022-09-22 15:21:00 67 mm[Hg] Unive rsity of pressure [facility] Body temperature 2022-09-22 14:46:00 36.39 Paty Univ ersity of [facility] Body height 2022-09-19 21:00:00 172.7 cm [facility]i [facility] Body weight 2022-09-19 21:00:00 80.287 kg [facility] BMI 2022-09-19 21:00:00 26.91 kg/m2 [facility] Heart rate 2022-09-22 15:05:00 74 /min [facility]i ty [facility] Respiratory rate 2022-09-22 15:05:00 20 /min Univ ersity of [facility] Oxygen saturation in 2022-09-22 15:05:00 98 /min University of [facility] blood by [facility]p Pulse oximetry Branch Systolic blood 2022-09-22 15:02:00 109 mm[Hg] Univer sity of pressure [facility] Diastolic blood 2022-09-22 15:02:00 59 mm[Hg] Unive rsity of pressure [facility] Body temperature 2022-09-22 14:46:00 36.39 Paty Univ ersity of [facility] Body height 2022-09-19 21:00:00 172.7 cm [facility]i ty [facility] Body weight 2022-09-19 21:00:00 80.287 kg [facility] BMI 2022-09-19 21:00:00 26.91 kg/m2 [facility] Systolic blood 2022-09-04 15:35:00 108 mm[Hg] Univer sity of pressure [facility] Diastolic blood 2022-09-04 15:35:00 64 mm[Hg] Unive rsity of pressure [facility] Heart rate 2022-09-04 15:35:00 72 /min [facility]i ty [facility] Body temperature 2022-09-04 15:35:00 35.83 Paty Univ ersity of [facility] Respiratory rate 2022-09-04 15:35:00 16 /min Univ ersity of [facility] Body height 2022-09-04 15:35:00 172.7 cm [facility]i ty [facility] Body weight 2022-09-04 15:35:00 81.466 kg [facility] ty [facility] BMI 2022-09-04 15:35:00 27.31 kg/m2 [facility] Oxygen saturation in 2022-09-04 15:35:00 99 /min University of [facility]terial blood by [place] [facility] P[facility] oxim[facility] Systolic blood 2022-08-16 12:27:00 113 mm[Hg] Univer sity of pressure [facility] Diastolic blood 2022-08-16 12:27:00 74 mm[Hg] Unive rsity of pressure [facility] Heart rate 2022-08-16 12:27:00 70 /min [facility]i ty [facility] Body height 2022-08-16 12:27:00 170.2 cm [facility] Body weight 2022-08-16 12:27:00 81.33 kg [facility]i [facility] BMI 2022-08-16 12:27:00 28.08 kg/m2 [facility] Oxygen saturation in 2022-08-16 12:27:00 97 /min University of Arterial blood by [facility] Pulse oximetry Branch Systolic blood 2022-03-31 14:01:00 115 mm[Hg] Univer sity of pressure [facility] Diastolic blood 2022-03-31 14:01:00 69 mm[Hg] Unive rsity of pressure [facility] Heart rate 2022-03-31 14:01:00 78 /min Universi ty [facility] Body temperature 2022-03-31 14:01:00 36.44 Paty Univ ersity of [facility] Body height 2022-03-31 14:01:00 170.2 cm [facility] Body weight 2022-03-31 14:01:00 89.948 kg [facility] ty [facility] BMI 2022-03-31 14:01:00 31.06 kg/m2 [facility] Oxygen saturation in 2022-03-31 14:01:00 97 /min University Arterial blood by [facility] Pulse oximetry Branch Procedures Procedure Date / Time Performed Performing Clinician Inocente dean TDAP VACCINE, >11 YRS, 2023-01-10 19:36:54 Patricia Garcia [facility] IM Medical Branch MASS EXCISION 2022-09-22 13:28:00 Korina Crawford [facility] Medical [place] POCT GLUCOSE 2022-09-22 13:16:00 Korina Crawford [facility] (AUTOMATED) Medical Branch POCT GLUCOSE 2022-09-22 13:16:00 Korina Crawford [facility] (AUTOMATED) Medical Branch EXTERNAL PROVIDER 2022-09-20 06:01:00 Doctor Unassigned, No [facility] Medical Branch NOTICE OF PRIVACY 2022-09-12 20:02:54 Doctor Unassigned, No [facility] PR[facility] Medical Branch NOTICE OF PRIVACY 2022-09-12 20:02:54 Doctor Unassigned, No [facility] Name Medical Branch CONSENT/REFUSAL FOR 2022-09-12 20:02:34 Doctor Unassigned, No [facility] AND Name Medical Branch TREATMENT CONSENT/REFUSAL FOR 2022-09-12 20:02:34 Doctor Unassigned, No [facility] AND Name Medical Branch TREATMENT ASSIGNMENT OF BENEFITS 2022-09-12 20:02:14 Doctor Unassigned, No [facility] Medical Branch ASSIGNMENT OF BENEFITS 2022-09-12 20:02:14 Doctor Unassigned, No [facility] Medical Branch DISCLOSURE AND 2022-09-04 06:01:00 Doctor Unassigned, No Univer sity [facility] CONSENT, MEDICAL AND Name Medical Bra [facility] SURGICAL PROCEDURES DISCLOSURE AND 2022-09-04 06:01:00 Doctor Unassigned, No [facility], MEDICAL AND Name Medical Bra [facility] SURGICAL PROCEDURES REFERRAL- 2022-03-31 05:01:00 Doctor Unassigned, No Univer sity [facility] REQUEST/RESPONSE Name Medical Branch Encounters Start End Encounter Admission Attending Care Care Encounter Source Date/Time Date/Time Type Type Clinicians Facility Department ID 2023-01-24 2023-01-24 Outpatient OLVIN GILLIS [facility] [id number] Univers 16:00:00 16:00:00 GER cruz [facility] 2023-01-19 2023-01-19 Outpatient R GENA MÉNDEZ [facility] [id number] Univers 08:20:00 10:08:50 GENA MÉNDEZ [facility] 2023-01-19 2023-01-19 [facility] 1.2.840.114 [id number] Univers 08:20:00 10:08:50 Visit [facility] [id number] [facility] [id number] Pillo as RAJAN?BLEA [phone] [address] OFFICE [facility] 2023-01-19 2023-01-19 Patient Ismael [facility] 1..840.114 [id number] Univers 00:00:00 00:00:00 Outreach Marly Buscapé 350.1.13.10 i ty [facility] 4.2.7.2.686 Pillo as RAJAN?BLEA [phone] [address] OFFICE [facility] 2023-01-19 2023-01-19 [facility]phone [facility] 1..840.114 [id number] Univers 00:00:00 00:00:00 Ger L [facility] 350.1.13.10 it y of [place] 4.2.7.2.686 Pillo as RAJAN?BLEA [id number] [facility] [address] [facility] OFFICE [facility] 2023-01-10 2023-01-10 Outpatient R DORI [facility] [id number] Univers 13:00:00 14:09:46 PATRICIA cruz [facility] 2023-01-10 2023-01-10 [facility] 1..840.114 [id number] Univers 13:00:00 14:09:46 Visit Patricia A [facility] 350.1.13.10 i ty of [place] 4.2.7.2.686 Pillo as RAJAN?BLEA [id number] [address] OFFICE [facility] 2022-12-29 2022-12-29 Natalie Dean [facility] 1.2.840.114 [id number] Univers 00:00:00 00:00:00 [facility] 350.1.13.10 it y of [place] 4.2.7.2.686 Pillo as RAJAN?BLEA [id number] [address] OFFICE [facility] 2022-12-28 2022-12-28 Refaudrey [facility] 1.2.840.114 [id number] Univers 00:00:00 00:00:00 Luis HEALTH 350.1.13.10 it y of [place] 4.2.7.2.686 Pillo as RAJAN?BLEA [id number] [address] OFFICE [facility] 2022-11-22 2022-11-22 Office [facility] 1.2.840.114 [id number] Univers 12:30:00 12:45:00 Visit [facility] 350.1.13.10 it y of [place] 4.2.7.2.686 Pillo as RAJAN?BLEA [id number] [address] OFFICE [facility] 2022-11-22 2022-11-22 [facility] [id number] Univers 12:30:00 12:30:00 LUIS cruz [facility] 2022-11-22 2022-11-22 Telephone [facility] [id number] Univers 00:00:00 00:00:00 [facility] 350.1.13.10 it y of [place] 4.2.7.2.686 Pillo as RAJAN?BLEA [id number] [address] OFFICE [facility] 2022-11-16 2022-11-16 [facility] 1.2.840.114 [id number] Univers 00:00:00 00:00:00 [facility] 350.1.13.10 it y of [place] 4.2.7.2.686 Pillo as RAJAN?BLEA [id number] [address] OFFICE [facility] 2022-10-31 2022-10-31 Outpatient R TY [facility] [id number] Univers 13:00:00 13:27:26 KORINA cruz [facility] 2022-10-31 2022-10-31 Office Lorin Steward [facility] 1.2.84 0.114 [id number] Univers 13:00:00 13:27:26 Visit Korina Crawford 350.1.13.10 ity of [facility] [place] [id number] [address] 2022-10-27 2022-10-27 Natalie [facility] 1.2.840.114 [id number] Univers 00:00:00 00:00:00 Luis HEALTH 350.1.13.10 it y of [facility] 4.2.7.2.686 Pillo as RAJAN?BLEA [id number] [address] 2022-10-19 2022-10-19 [facility] [id number] Univers 09:30:00 10:08:29 KORINA cruz [facility] 2022-10-19 2022-10-19 Office [facility] [id number] Univers 09:30:00 10:08:29 Visit Korina RILEYTIANA 350.1.13.10 i ty of [facility] 4.2.7.2.[place] [id number] [address] 2022-10-13 2022-10-13 Natalie [facility] 1.2.840.114 [id number] Univers 00:00:00 00:00:00 Luis HEALTH 350.1.13.10 it y of [facility] 4.2.7.2.686 Pillo as RAJAN?BLEA [id number] [address] OFFICE [facility] 2022-10-05 2022-10-05 [facility] [id number] Univers 16:00:00 17:46:04 KORINA cruz [facility] 2022-10-05 2022-10-05 [facility] 1.2.094.782 [id number] Univers 16:00:00 17:46:04 Visit Korina DURBIN 350.1.13.10 i ty of [place]2.7.[place] [id number] [place] naren OLIVER [address] [facility] 2022-09-22 2022-09-22 [facility] [id number] Univers 06:50:00 11:20:00 KORINA ity of [facility] 2022-09-22 2022-09-22 [facility] 1.2.840.114 [id number] Univers 06:50:00 11:20:00 Encounter Korina DURBIN 350.1.13.10 ity of [place]ICAL [id number] [facility] [address] [place] 2022-09-22 2022-09-22 Surgery [facility] [id number] Univers 07:20:00 09:05:00 Korina DURBIN 350.1.13.10 i ty of [place].7.[place] [id number] [facility] [address] [place] 2022-09-20 2022-09-20 Orders Doctor GOOD 1.2.840.114 [id number] Univers 00:00:00 00:00:00 Only Unassigned, TOY 350.1.13.10 ity of [place] [facility] 4.2.7.2.686 Pillo as [id number] [address] 2022-09-11 2022-09-11 Telephone [facility] [id number] [id number] Univers 00:00:00 00:00:00 Luisigobubble 350.1.13.10 it y of [place] 4.2.7.2.686 Pillo as RAJAN?BLEA [id number] [place] na[place] KELLOGG [address] [place] MEDICAL OFFICE [facility] 2022-09-06 2022-09-06 Prep For [facility] 1.2.840.114 [id number] Univers 00:00:00 00:00:00 Surgery Korina DURBIN 350.1.13.10 i ty [place] [id number] [address] 2022-09-04 2022-09-04 Outpatient R TY [facility] [id number] Univers 09:30:00 10:08:41 KORINA cruz [facility] 2022-09-04 2022-09-04 Office [facility] [id number] Univers 09:30:00 10:08:41 Visit Korina DURBIN 350.1.13.10 i ty of [facility] 4.2.7.2.[place] [id number] [address] 2022-09-04 2022-09-04 Telephone [facility] 1.2.840.114 [id number] Univers 00:00:00 00:00:00 Korina DURBIN 350.1.13.10 i ty of [facility] 4.2.7.2.[place] [id number] [address] 2022-08-22 2022-08-22 Telephone [facility] [id number] Univers 00:00:00 00:00:00 Luis HEALTH 350.1.13.10 it y of [facility] 4.2.7.2.686 Pillo as RAJAN?BLEA [id number] [address] OFFICE [facility] 2022-08-16 2022-08-16 [facility] [id number] Univers 07:15:00 07:52:47 LUIS cruz [facility] 2022-08-16 2022-08-16 Office [facility] 1.2.840.114 [id number] Univers 07:15:00 07:52:47 Visit [facility] 350.1.13.10 it y of [facility] 4.2.7.2.686 Pillo as RAJAN?BLEA [id number] [address] OFFICE [facility] 2022-07-20 2022-07-20 Refill [facility] 1.2.840.114 [id number] Univers 00:00:00 00:00:00 Luis HEALTH 350.1.13.10 it y [facility] 4.2.7.2.686 Pillo as RAJAN?BLEA [id number] [address] MEDICAL OFFICE [facility] 2022-03-31 2022-03-31 Outpatient R DORI [facility] [id number] Univers 09:00:00 10:15:33 PATRICIA ity of [facility] 2022-03-31 2022-03-31 Office [facility] 1.2.840.114 [id number] Univers 09:00:00 10:15:33 Visit Patricia Guadalupe HEALTH 350.1.13.10 i ty of [place] 4.2.7.2.686 Pillo as RAJAN?BLEA [id number] [address] OFFICE [facility] 2022-03-31 2022-03-31 Telephone [facility] [id number] Univers 00:00:00 00:00:00 Patricia A HEALTH 350.1.13.10 i ty of [facility] 4.2.7.2.686 Pillo as RAJAN?BLEA [id number] [address] MEDICAL OFFICE [facility] 2022-03-31 2022-03-31 Orders Doctor GOOD 1.2.840.114 [id number] Univers 00:00:00 00:00:00 Only Unassigned, TOY 350.1.13.10 ity of [place] [facility] 4.2.7.2.686 Pillo as [id number] [address] 2022-03-30 2022-03-30 Outpatient R DORI [facility] [id number] Univers 13:00:00 13:00:00 PATRICIA ity of [facility] 2022-03-01 2022-03-01 Orders Doctor GOOD 1.2.840.114 [id number] Univers 00:00:00 00:00:00 Only Unassigned, TOY 350.1.13.10 ity of [place] [facility] 4.2.7.2.686 Pillo as [id number] [address] 2022-01-16 2022-01-16 Outpatient R LOUIS [facility] [id number] Univers 14:30:00 15:09:22 LUIS ity of [facility] 2022-01-16 2022-01-16 Office [facility] 1.2.840.114 [id number] Univers 14:30:00 15:09:22 Visit [facility] 350.1.13.10 it y [facility] 4.2.7.2.686 Pillo as RAJAN?BLEA [id number] [address] OFFICE [facility] 2022-01-16 2022-01-16 Orders Doctor GOOD 1.2.840.114 [id number] Univers 00:00:00 00:00:00 Only Unassigned, TOY 350.1.13.10 ity of [place] [facility] 4.2.7.2.686 Pillo as [phone] [address] 2022-01-16 2022-01-16 Telephone [facility] 1.2.768.960 [id number] 6342 Univers 00:00:00 00:00:00 [facility] 350.1.13.10 [facility] 4.2.7.2.686 Pillo as RAJAN?BLEA [phone] [address] OFFICE [facility] 2021-11-10 2021-11-10 Refill [facility] 1.2.840.114 [id number] Univers 00:00:00 00:00:00 Luis HEALTH 350.1.13.10 it y of [place] 4.2.7.2.686 Pillo as PROFESSIO [phone] [address] OFFICE [facility] ONE 2021-09-14 2021-09-14 Orders Doctor GOOD 1.2.840.114 [id number] Univers 00:00:00 00:00:00 Only Unassigned, TOY 350.1.13.10 ity of [place] [facility] 4.2.7.2.686 Pillo as [phone] [address] 2021-09-03 2021-09-03 Refaudrey Moore [facility] 1.2.370.073 [id number] 8634 Univers 00:00:00 00:00:00 Ashlee PRIMARY 350.1.13.10 i ty of [place] [phone] [address] 2021-09-01 2021-09-01 Outpatient R L[facility] [id number] Univers 09:00:00 09:14:24 LUIS cruz [facility] 2021-09-01 2021-09-01 Office Louis [facility] 1.2.840.114 [id number] Univers 08:47:00 09:14:24 Visit [facility] 350.1.13.10 it [facility] 4.2.7.2.686 Pillo as RAJAN?BLEA [phone] [address] OFFICE [facility] 2021-08-29 2021-08-29 Telephone [facility] 1.2.100.650 [id number] 2458 Univers 00:00:00 00:00:00 [place] [facility] 350.1.13.10 it y of [place] 4.2.7.2.686 Pillo as RAJAN?BLEA [phone] [address] OFFICE [facility] 2021-08-25 2021-08-25 Orders Doctor GOOD 1.2.840.114 [id number] Univers 00:00:00 00:00:00 Only Unassigned, TOY 350.1.13.10 ity of [place] [facility] 4.2.7.2.686 Pillo as [phone] [address] 2021-08-23 2021-08-23 Telephone [facility] 1.2.093.090 [id number] 4470 Univers 00:00:00 00:00:00 [facility] 350.1.13.10 it y of [place] 4.2.7.2.686 Pillo as RAJAN?BLEA [phone] [address] OFFICE [facility] 2021-08-16 2021-08-16 Refill Louis [facility] 1.2.840.114 [id number] Univers 00:00:00 00:00:00 Luis HEALTH 350.1.13.10 it y of [place] 4.2.7.2.686 Pillo as PROFESSIO [phone] [address] OFFICE [facility] ONE 2021-08-12 2021-08-12 Transition ASTON Bradford 1.2.840.114 [id number] Univers 00:00:00 00:00:00 of Care Kay CARLSONY 350.1.13.10 it y of [place].2.[place] [phone] [facility] [address] 2021-08-12 2021-08-12 Telephone [facility] 1.2.840.114 [id number] [id number] Univers 00:00:00 00:00:00 [place] HEALTH 350.1.13.10 it y of [place] [phone] [facility] [address] OFFICE BUILDING 2021-08-12 2021-08-12 Telephone [facility] 1.2.915.067 [id number] Univers 00:00:00 00:00:00 Luis HEALTH 350.1.13.10 it y of [place] 4.2.7.2.686 Pillo as RAJAN?BLEA [phone] [address] MEDICAL OFFICE BUILDING 2021-08-04 2021-08-11 [facility] Murali Melecio MENJIVAR 1.2.840.1 14 [id number] Univers 16:20:00 17:00:00 Encounter Sergei Arellano TOY 350. 1.13.10 it[facility] 4.2 .7.2.686 [place] [phone] [facility] [address] 2021-08-04 2021-08-11 Inpatient X [facility] [id number] Univers 16:20:00 17:00:00 KEN, ity of [facility] 2021-08-10 2021-08-10 Anesthesia Gil Garber 1.2.840.6 [id number] Univers 12:56:00 13:51:00 Event Cristopher Gamez 81594.1.1 ity of 3.104.2.7 [place] .3.552019 Medica l .8 [place] 2021-08-04 2021-08-04 Office Carole 1.2.840.0 [id number] 895 Univers 13:16:05 14:42:39 Visit Tereso 67927.1.1 ity of 3.104.2.7 [place] .3.721681 Medica l .8 [place] 2021-08-04 2021-08-04 Outpatient R CAROLE [facility] [id number] [facility] [place] [facility] 13:30:00 13:30:00 TERESO cruz [facility] 2021-08-04 2021-08-04 Refaudrey Dean [facility] 1.2.840.114 [id number] Univers 00:00:00 00:00:00 [facility] 350.1.13.10 it y of [place] 4.2.7.2.686 Pillo as Professio [phone] [place] dical nal [address] [place] Office [facility] One 2021-08-04 2021-08-04 Travel 1.2.840.1 1.2.418.477 [id number] 2973 Univers 00:00:00 00:00:00 45037.1.1 350.1.13.10 ity of 3.104.2.7 4.[place].7.3.698 [place] .3.343729 084.8 Medica l .8 [place] 2021-08-04 2021-08-04 Refaudrey Dean, 1.2.840.8 [id number] 682 Univers 00:00:00 00:00:00 Luis 44434.1.1 ity of 3.104.2.7 [place] .3.639542 Medica l .8 [place] 2021-07-12 2021-07-12 Outpatient R ANDRE [facility] [id number] Univers 08:50:00 08:50:00 TONY cruz [facility] 2021-07-12 2021-07-12 Imm/Inj Nurse, Adc Pob Immunization [facility] 1.2.840.114 [id number] Univers 08:49:32 08:49:39 Visit Tony Norton 350.1.13 .10 ity of [place].7.2.[place] Profess[place] [phone] Me dical nal 421 [facility] 2021-07-12 2021-07-12 Imm/Inj AndreTony 1.2.840.6 [id number] Univers 08:49:32 08:49:39 Visit Nurse, Bj Watkins 32136.1.1 ity of 3.104.2.7 [place] .3.215920 Medica l .8 [place] 2021-07-04 2021-07-04 Refill Dean 1.2.840.7 [id number] 793 Univers 00:00:00 00:00:00 Luis 54637.1.1 ity of 3.104.2.7 [place] .3.672754 Medica l .8 [place] 2021-07-04 2021-07-04 [facility] 1.2.840.114 [id number] 93 Univers 00:00:00 00:00:00 Luis Health 350.1.13.10 it y of [place] 4.2.7.2.686 Pillo as Professio [phone] [place] dical nal [address] [place] Office Building One 2021-06-22 2021-06-22 [facility] 1.2.840.114 [id number] Univers 10:48:09 23:59:00 Encounter Luis Health 350.1.13.10 ity of [place] 4.2.7.2.686 Pillo as Rajan?Blea [phone] W[place] dical kney 809 [facility] Office Building 2021-06-22 2021-06-22 [facility] Dean 1.2.840.0 [id number] 8231 Univers 10:48:09 23:59:00 Encounter Luis 46434.1.1 it y of 3.104.2.7 [place] .3.076441 Medica l .8 [place] 2021-06-22 2021-06-22 Accounts Receivable Processor Luis Dean 1.2.840.1 [id number] Univers 10:43:54 11:32:37 Visit Lab, [place] - Db 10058.1.1 ity of 3.104.2.7 [place] .3.939058 Medica l .8 [place] 2021-06-22 2021-06-22 Accounts Receivable Processor Lab, Ang - Db [facility] 1.2.840.1 14 [id number] Univers 10:43:54 10:58:54 Visit Luis Dean [facility] 350.1.13.10 ity of [place] 4.2.7.2.686 Pillo as Rajan?Blea [phone] [facility] [address] [place] Medical Office [facility] 2021-06-22 2021-06-22 Office Louis, 1.2.840.8 [id number] 527 Univers 10:07:48 10:38:35 Visit Luis 50576.1.1 ity of 3.104.2.7 [place] .3.647864 Medica l [address] [place] 2021-06-22 2021-06-22 Office [facility] 1.2.840.114 [id number] Univers 10:07:48 10:22:48 Visit [facility] 350.1.13.10 it y of [place] 4.2.7.2.686 Pillo as Rajan?Blea [phone] [address] Office [facility] 2021-06-22 2021-06-22 [facility] [id number] Univers 10:15:00 10:15:00 LUIS ity of [facility] 2021-06-22 2021-06-22 Letter Doctor GOOD 1.2.840.114 [id number] Univers 00:00:00 00:00:00 (Out) Unassigned, TOY 350.1.13.10 ity of [place] [facility] 4.2.7.2.686 Pillo as [phone] [address] 2021-06-22 2021-06-22 Letter Doctor 1.2.840.4 [id number] Univers 00:00:00 00:00:00 (Out) Unassigned, 38396.1.1 ity of [place] 3.104.2.7 [place] .3.293174 Medica l .8 [place] 2021-06-22 2021-06-22 Travel 1.2.840.1 1.2.067.168 [id number] 5378 Univers 00:00:00 00:00:00 05322.1.1 350.1.13.10 ity of 3.104.2.7 4.2.7.3.698 [place] .3.165576 084.8 Medica l .8 [place] 2021-06-22 2021-06-22 Letter Doctor GOOD 1.2.840.114 [id number] 92 Univers 00:00:00 00:00:00 (Out) Unassigned, TOY 350.1.13.10 ity of [place] [facility] 4.2.7.2.686 Pillo as [phone] [facility] [address] [place] 2021-06-08 2021-06-08 [facility] 1.2.840.114 [id number] 26 Univers 00:00:00 00:00:00 Luis Health 350.1.13.10 it y of [place] 4.2.7.2.686 Pillo as Professio [phone] [address] One 2021-06-08 2021-06-08 Amirahaudrey Dean, 1.2.840.5 [id number] 326 Univers 00:00:00 00:00:00 Luis 24642.1.1 ity of 3.104.2.7 [place] .3.266369 Medica l .8 [place] 2021-06-08 2021-06-08 [facility] 1.2.840.114 [id number] 26 Univers 00:00:00 00:00:00 Luis Health 350.1.13.10 it y of [place] 4.2.7.2.686 Pillo as Professio [phone] [address] One 2021-06-04 2021-06-04 [facility] 1.2.840.114 [id number] 26 Univers 00:00:00 00:00:00 Luis Health 350.1.13.10 it y of [place] 4.2.7.2.686 Pillo as Professio [phone] [address] One 2021-06-04 2021-06-04 Natalie Dean, 1.2.840.7 [id number] 026 Univers 00:00:00 00:00:00 Luis 36613.1.1 ity of 3.104.2.7 [place] .3.813194 Medica l .8 [place] 2021-05-12 2021-05-12 Refill Louis [facility] 1.2.840.114 [id number] Univers 00:00:00 00:00:00 [facility] 350.1.13.10 it y of [place] 4.2.7.2.686 Pillo as Professio [phone] [place] dicnd nal [address] [place] Office [facility] One 2021-05-12 2021-05-12 Refill Louis, 1.2.840.4 [id number] 429 Univers 00:00:00 00:00:00 Luis 78412.1.1 ity of 3.104.2.7 [place] .3.179872 Medica l .8 [place] 2021-04-04 2021-04-04 Accounts Receivable Processor Lab, Adc Fam Pob I [facility] 1.2. 840.114 [id number] Univers 10:44:04 11:04:04 Visit Louis [place] 89987.1.13.10 ity of [place] 4.2.7.2.686 Pillo as Professio [phone] W[place] dical nal [address] [place] [address] Office [facility] 2021-04-04 2021-04-04 Office [facility] 1.2.840.114 [id number] Univers 10:11:45 10:26:45 Visit [facility] 350.1.13.10 it y of [place] 4.2.7.2.686 Pillo as Professio [phone] [facility] nal [address] [place] [address] Office [facility] 2021-04-04 2021-04-04 Out[facility] [id number] Univers 10:15:00 10:15:00 [facility] 2021-03-28 2021-03-28 [facility]phone [facility] 1.2.571.029 [id number] Univers 00:00:00 00:00:00 [facility] 350.1.13.10 it y of [place] 4.2.7.2.686 Pillo as Professio [phone] W[place] dical nal [address] [place] [address] Office [facility] One 2021-03-18 2021-03-18 Rashel [facility] 1.2.524.451 [id number] 4475 Univers 00:00:00 00:00:00 [facility] 350.1.13.10 it y of [place] 4.2.7.2.686 Pillo as Professio [phone] [address] One 2021-03-15 2021-03-15 Refaudrey [facility] 1.2.840.114 [id number] Univers 00:00:00 00:00:00 [facility] 350.1.13.10 it y of [place] 4.2.7.2.686 Pillo as Professio [phone] [address] One 2021-02-19 2021-02-19 Refaudrey [facility] 1.2.840.114 [id number] Univers 00:00:00 00:00:00 [facility] 350.1.13.10 it y of [place] 4.2.7.2.686 Pillo as Professio [phone] [address] One 2021-02-16 2021-02-16 Orders Doctor GOOD 1.2.840.114 [id number] Univers 00:00:00 00:00:00 Only Unassigned, TOY 350.1.13.10 ity of [place] [facility] 4.2.7.2.686 Pillo as [phone] [address] 2021-02-05 2021-02-05 Natalie [facility] 1.2.840.114 [id number] Univers 00:00:00 00:00:00 [facility] 350.1.13.10 it y of [place] 4.2.7.2.686 Pillo as Professio [phone] [address] One 2021-01-28 2021-01-28 Outpatient R [facility] [id number] Univers 17:00:00 17:00:00 ity of [facility] 2021-01-28 2021-01-28 Outpatient R [facility] [id number] Univers 10:20:00 10:20:00 ity of [facility] 2021-01-282021-01-28 Nurse Nurse, [facility] 1.2 .840.114 [id number] Univers 09:57:42 10:12:42 Visit Carole Tereso [facility] 350.1.13.10 ity of [place] 4.2.7.2.686 Pillo as Professio [phone] [address] One 2021-01-28 2021-01-28 Orders Doctor GOOD 1.2.840.114 [id number] Univers 00:00:00 00:00:00 Only Unassigned, TOY 350.1.13.10 ity of [place] [facility] 4.2.7.2.686 Pillo as [phone] [address] 2021-01-11 2021-01-11 Natalie [facility] 1.2.840.114 [id number] Univers 00:00:00 00:00:00 [facility] 350.1.13.10 it y of [place] 4.2.7.2.686 Pillo as Professio [phone] [address] One 2020-12-03 2020-12-03 Refaudrey Dean [facility] 1.2.840.114 [id number] Univers 00:00:00 00:00:00 [facility] 350.1.13.10 it y of [place] 4.2.7.2.686 Pillo as Professio [phone] [address] One 2020-11-15 2020-11-15 Outpatient Maria BENNETT [facility] [id number] Univers 11:10:00 11:10:00 NARENDRA ity of [facility] 2020-11-12 2020-11-12 Natalie Dean [facility] 1.2.840.114 [id number] Univers 00:00:00 00:00:00 [facility] 350.1.13.10 it y of [place] 4.2.7.2.686 Pillo as Professio [phone] [address] One 2020-10-29 2020-10-29 Rashel Dean [facility] 1.2.421.169 [id number] 3074 Univers 00:00:00 00:00:00 Luis Health 350.1.13.10 it y of [place] 4.2.7.2.686 Pillo as Professio [phone] [address] One 2020-10-28 2020-10-28 Refaudrey [facility] 1.2.840.114 [id number] Univers 00:00:00 00:00:00 Luis Health 350.1.13.10 it y of [place] 4.2.7.2.686 Pillo as Professio [phone] [address] One 2020-10-18 2020-10-18 Office [facility] 1.2.840.114 [id number] Univers 11:25:44 12:22:59 Visit [facility] 350.1.13.10 it y of [place] 4.2.7.2.686 Pillo as Professio [phone] [address] One 2020-10-18 2020-10-18 Outpatient [facility] [id number] Univers 12:15:00 12:15:00 LUIS alberto [facility] 2020-10-09 2020-10-09 [facility] 1.2.840.114 [id number] Univers 00:00:00 00:00:00 [facility] 350.1.13.10 it y of [place] 4.2.7.2.686 Pillo as Professio [phone] [address] 2020-09-21 2020-09-21 Telemedici [facility] 1.2.840.114 [id number] Univers 09:30:27 09:45:27 ne Visit [facility] 350.1.13.10 i ty of [place] 4.2.7.2.686 Pillo as Professio [phone] [address] 2020-09-21 2020-09-21 Outpatient [facility] [id number] Univers 09:45:00 09:45:00 LUIS ity [facility] 2020-09-19 2020-09-19 Refaudrey [facility] 1.2.840.114 [id number] Univers 00:00:00 00:00:00 Luis Health 350.1.13.10 it y of [place] 4.2.7.2.686 Pillo as Professio [phone] [address] Office Building One 2020-09-05 2020-09-05 Natalie [facility] 1.2.840.114 [id number] 91 Univers 00:00:00 00:00:00 Luis [facility] 350.1.13.10 it y of [place] 4.2.7.2.686 Pillo as Professio [phone] [address] Office Building One 2020-08-30 2020-08-30 Natalie [facility] 1.2.840.114 [id number] 62 Univers 00:00:00 00:00:00 Luis [facility] 350.1.13.10 it y of [place] 4.2.7.2.686 Pillo as Professio [phone] [address] Office Building One 2020-08-18 2020-08-18 Natalie [facility] 1.2.840.114 [id number] 40 Univers 00:00:00 00:00:00 Luis [facility] 350.1.13.10 it y of [place] 4.2.7.2.686 Pillo as Professio [phone] [address] Office Building One 2020-08-03 2020-08-03 Natalie [facility] 1.2.840.114 [id number] 23 Univers 00:00:00 00:00:00 Luis [facility] 350.1.13.10 it y of [place] 4.2.7.2.686 Pillo as Professio [phone] [address] Office Building One 2020-08-03 2020-08-03 Natalie [facility] 1.2.840.114 [id number] 23 00:00:00 00:00:00 Luis [facility] 350.1.13.10 [place] 4.2.7.2.686 Professio [phone] [place] [address] Office Building One 2020-08-01 2020-08-01 Natalie [facility] 1.2.840.114 [id number] 35 Univers 00:00:00 00:00:00 Luis [facility] 350.1.13.10 it y of [place] 4.2.7.2.686 Pillo as Professio [phone] [address] Office [facility] 2020-08-01 2020-08-01 Natalie Dean, [facility] 1.2.840.114 [id number] 35 00:00:00 00:00:00 Luis [facility] 350.1.13.10 [place] 4.2.7.2.686 Professio [phone] [place] [address] Office [facility] 2020-07-08 2020-07-08 Natalie Dean, [facility] 1.2.840.114 [id number] 02 Univers 00:00:00 00:00:00 Luis [facility] 350.1.13.10 it y of [place] 4.2.7.2.686 Pillo as Professio [phone] [address] 2020-07-08 2020-07-08 [facility] Dean, [facility] 1.2.840.114 [id number] 02 00:00:00 00:00:00 Luis [facility] 350.1.13.10 [place] 4.2.7.2.686 Professio [phone] [address] 2020-06-25 2020-06-25 Orders Doctor GOOD 1.2.840.114 [id number] Univers 00:00:00 00:00:00 Only Unassigned, TOY 350.1.13.10 ity of [place] [facility] 4.2.7.2.686 Pillo as [phone] [address] 2020-06-25 2020-06-25 Orders Doctor GOOD 1.2.840.114 [id number] 00:00:00 00:00:00 Only Unassigned, TOY 350.1.13.10 [place] [facility] [phone] [facility] 2020-06-01 2020-06-01 Natalie Dean, [facility] 1.2.840.114 [id number] 42 Univers 00:00:00 00:00:00 Luis [facility] 350.1.13.10 it y of [place] 4.2.7.2.686 Pillo as Professio [phone] [place] dical [place]al [address] [place] Office Building One 2020-06-01 2020-06-01 Natalie [facility] 1.2.840.114 [id number] 42 00:00:00 00:00:00 [facility] 350.1.13.10 [place] 4.2.7.2.686 Professio [phone] [place] [address] Office Building One 2020-05-30 2020-05-30 Natalie [facility] 1.2.840.114 [id number] 88 Univers 00:00:00 00:00:00 Luis [facility] 350.1.13.10 it y of [place] 4.2.7.2.686 Pillo as Professio [phone] [facility] nal [address] [place] [address] Office Building One 2020-05-30 2020-05-30 Natalie [facility] 1.2.840.114 [id number] 88 00:00:00 00:00:00 Luis [facility] 350.1.13.10 [place] 4.2.7.2.686 Professio [phone] [place] [address] Office Building One 2020-05-22 2020-05-22 Natalie [facility] 1.2.840.114 [id number] 32 Univers 00:00:00 00:00:00 Luis [facility] 350.1.13.10 it y of [place] 4.2.7.2.686 Pillo as Professio [phone] [facility] nal [address] [place] [address] Office Building One 2020-05-22 2020-05-22 Natalie [facility] 1.2.840.114 [id number] 32 00:00:00 00:00:00 [facility] 350.1.13.10 [place] 4.2.7.2.686 Professio [phone] [place] [address] Office Building One 2020-05-07 2020-05-07 Natalie [facility] 1.2.840.114 [id number] 25 Univers 00:00:00 00:00:00 Luis [facility] 350.1.13.10 it y of [place] 4.2.7.2.686 Pillo as Professio [phone] [facility] nal [address] [place] [address] Office Building One 2020-05-07 2020-05-07 Natalie Dean, [facility] 1.2.840.114 [id number] 00:00:00 00:00:00 [facility] 350.1.13.10 [place] 4.2.7.2.686 Professio [phone] [place] [address] Office Building One 2020-04-19 2020-04-19 Natalie eDan, [facility] 1.2.840.114 [id number] 67 00:00:00 00:00:00 [facility] 350.1.13.10 [place] 4.2.7.2.686 Professio [phone] [place] [address] Office Building One 2020-04-19 2020-04-19 Refaudrey Dean, [facility] 1.2.840.114 [id number] 67 Univers 00:00:00 00:00:00 [facility] 350.1.13.10 it y of [place] 4.2.7.2.686 Pillo as Professio [phone] [address] Office Building One 2020-03-18 2020-03-18 Refaudrey Dean, [facility] 1.2.840.114 [id number] 22 00:00:00 00:00:00 [facility] 350.1.13.10 [place] 4.2.7.2.686 Professio [phone] [place] [address] Office Building One 2020-03-18 2020-03-18 Refaudrey Dean, [facility] 1.2.840.114 [id number] 22 Univers 00:00:00 00:00:00 [facility] 350.1.13.10 it y of [place] 4.2.7.2.686 Pillo as Professio [phone] [address] Office Building One 2020-03-10 2020-03-10 Refaudrey Dean, [facility] 1.2.840.114 [id number] 05 00:00:00 00:00:00 [facility] 350.1.13.10 [place] 4.2.7.2.686 Professio [phone] [place] [address] Office Building One 2020-03-10 2020-03-10 Refaudrey Dean, [facility] 1.2.840.114 [id number] 05 Univers 00:00:00 00:00:00 [facility] 350.1.13.10 it y of [place] 4.2.7.2.686 Pillo as Professio [phone] [address] Office [facility] 2020-02-25 2020-02-25 Natalie Dean [facility] 1.2.840.114 [id number] 00:00:00 00:00:00 [facility] 350.1.13.10 [place] 4.2.7.2.686 Professio [phone] [place] [address] [facility] 2020-02-25 2020-02-25 [facility] 1.2.840.114 [id number] Univers 00:00:00 00:00:00 [facility] 350.1.13.10 [facility] [place] 4.2.7.2.686 Pillo as Professio [phone] [address] Office [facility] One 2020-02-23 2020-02-23 [facility] 1.2.840.114 [id number] 97 00:00:00 00:00:00 [facility] 350.1.13.10 [place] 4.2.7.2.686 Professio [phone] [place] [address] [facility] 2020-02-23 2020-02-23 [facility] 1.2.840.114 [id number] Univers 00:00:00 00:00:00 [facility] 350.1.13.10 [facility] [place] 4.2.7.2.686 Pillo as Professio [phone] [address] Office [facility] One 2020-01-28 2020-01-28 [facility] 1.2.840.114 [id number] 00:00:00 00:00:00 [facility] 350.1.13.10 [place] 4.2.7.2.686 Professio [phone] [place] [address] [facility] 2020-01-28 2020-01-28 [facility] 1.2.840.114 [id number] Univers 00:00:00 00:00:00 [facility] 350.1.13.10 [facility] [place] 4.2.7.2.686 Pillo as Professio [phone] [address] Office [facility] 2019-12-30 2019-12-30 Refill Louis [facility] 1.2.840.114 [id number] 78 00:00:00 00:00:00 [facility] 350.1.13.10 [place] 4.2.7.2.686 Professio [phone] [place] [address] Office [facility] 2019-12-30 2019-12-30 Refaudrey Dean, [facility] 1.2.840.114 [id number] 78 Univers 00:00:00 00:00:00 [facility] 350.1.13.10 it y [facility] [place] 4.2.7.2.686 Pillo as Professio [phone] [address] Office [facility] 2019-12-21 2019-12-21 Refill Louis, [facility] 1.2.840.114 [id number] 25 00:00:00 00:00:00 [facility] 350.1.13.10 [place] 4.2.7.2.686 Professio [phone] [place] [address] Office [facility] 2019-12-21 2019-12-21 Refill Louis, [facility] 1.2.840.114 [id number] Univers 00:00:00 00:00:00 [facility] 350.1.13.10 it y of [place] 4.2.7.2.686 Pillo as Professio [phone] [address] 2019-12-11 2019-12-11 Orders Doctor GOOD 1.2.840.114 [id number] 00:00:00 00:00:00 Only Unassigned, TOY 350.1.13.10 [facility] 4.2.7.2.686 [phone] 2019-12-11 2019-12-11 Orders Doctor GOOD 1.2.840.114 [id number] Univers 00:00:00 00:00:00 Only Unassigned, TOY 350.1.13.10 ity of [facility] 4.2.7.2.686 Pillo as [phone] [address] 2019-12-08 2019-12-08 [facility] [id number] 00:00:00 00:00:00 [facility] 350.1.13.10 [place] 4.2.7.2.686 Professio [phone] [place] [address] Office Building One 2019-12-08 2019-12-08 Rashel Dean ORHAROON [id number] Univers 00:00:00 00:00:00 [facility] 350.1.13.10 it y of [place] 4.2.7.2.686 Pillo as Professio [phone] [address] Office Building One 2019-12-02 2019-12-02 [facility] 1.2.840.114 [id number] 00:00:00 00:00:00 [facility] 350.1.13.10 [place] 4.2.7.2.686 Professio [phone] [place] [address] Office Building One 2019-12-02 2019-12-02 [facility] 1.2.840.114 [id number] Univers 00:00:00 00:00:00 [facility] 350.1.13.10 it y of [place] 4.2.7.2.686 Pillo as Professio [phone] [address] Office Building One 2019-11-10 2019-11-10 [facility] 1.2.840.114 [id number] 00:00:00 00:00:00 [facility] 350.1.13.10 [place] 4.2.7.2.686 Professio [phone] [place] [address] Office Building One 2019-11-10 2019-11-10 [facility] 1.2.840.114 [id number] Univers 00:00:00 00:00:00 [facility] 350.1.13.10 it y of [place] 4.2.7.2.686 Pillo as Professio [phone] [address] Office Building One 2019-11-06 2019-11-06 Orders Doctor GOOD 1.2.840.114 [id number] Univers 00:00:00 00:00:00 Only Unassigned, TOY 350.1.13.10 ity of [place] [facility] 4.2.7.2.686 Pillo as [phone] [address] 2019-11-06 2019-11-06 Orders Doctor GOOD 1.2.840.114 [id number] 03 00:00:00 00:00:00 Only Unassigned, TOY 350.1.13.10 [place] [facility] [phone] 2019-10-24 2019-10-24 Orders Doctor GOOD 1.2.840.114 [id number] Univers 00:00:00 00:00:00 Only Unassigned, TOY 350.1.13.10 ity of [place] [facility] 4.2.7.2.686 Pillo as [phone] [address] 2019-10-24 2019-10-24 Orders Doctor GOOD 1.2.840.114 [id number] 00:00:00 00:00:00 Only Unassigned, TOY 350.1.13.10 [place] [facility] 4.2.7.2.686 [phone] [facility] 2019-10-09 2019-10-09 Orders Doctor GOOD 1.2.840.114 [id number] Univers 00:00:00 00:00:00 Only Unassigned, TOY 350.1.13.10 ity of [place] [facility] 4.2.7.2.686 Pillo as [phone] [address] 2019-10-09 2019-10-09 Orders Doctor GOOD 1.2.840.114 [id number] 17 00:00:00 00:00:00 Only Unassigned, TOY 350.1.13.10 [place] [facility] 4.2.7.2.686 [phone] 009 2019-06-19 2019-06-19 OLVIN Granados 1.2.840.114 [id number] Univers 00:00:00 00:00:00 [facility] 350.1.13.10 [facility] of [place] 4.2.7.2.686 Pillo as Hugo [phone] [address] Office [facility] One 2019-06-19 2019-06-19 OLVIN Granados 1.2.840.114 [id number] 20 00:00:00 00:00:00 [facility] 350.1.13.10 [place] 4.2.7.2.686 Professio [phone] nal [facility] Office Building One 2019-06-14 2019-06-14 GOOD P[place] 1.2.840.114 [id number] Univers 00:00:00 00:00:00 Triage Elizabeth TOY 350.1.13.10 it y of HOSPITAL 4.2.7.2.686 Pillo as [phone] [address] 2019-06-14 2019-06-14 [facility] 1.2.840.114 [id number] Univers 00:00:00 00:00:00 [facility] 350.1.13.10 it y of [place] 4.2.7.2.686 Pillo as Professio [phone] [address] Office Building One 2019-06-14 2019-06-14 GOOD Peralta 1.2.840.114 [id number] 00:00:00 00:00:00 Triage Elizabeth TOY 350.1.13.10 HOSPITAL [id number] [id number] 2019-06-14 2019-06-14 [facility] 1.2.840.114 [id number] 00:00:00 00:00:00 [facility] 350.1.13.10 [place] 4.2.7.2.686 Professio [phone] nal [facility] Office Building One 2019-06-11 2019-06-11 [facility] 1.2.840.114 [id number] Univers 00:00:00 00:00:00 [facility] 350.1.13.10 it y of [place] 4.2.7.2.686 [place] as Professio [phone] [address] Office Building One 2019-06-11 2019-06-11 Natalie Dean, [facility] 1.2.840.114 [id number] 17 00:00:00 00:00:00 [facility] 350.1.13.10 [place] 4.2.7.2.686 Professio [phone] [place] [address] Office Building One 2019-06-03 2019-06-03 [facility] [id number] [facility] 11:15:00 23:59:00 Encounter Anu Durbin 350.1.13.10 ity [place]2.[place] [phone] [facility] [address] 2019-06-03 2019-06-03 [facility] [id number] 11:15:00 23:59:00 Encounter Anu Durbin 350.1.13.10 [place] 4.2.7.2.686 [place] [phone] 80 2019-06-03 2019-06-[address] [facility] 1.2.840.114 [id number] [facility] 10:13:51 10:45:51 Visit [facility] 350.1.13.10 i ty of [place] 4.2.7.2.686 Pillo as Professio [phone] [place] [address] Office [facility] 2019-06-03 2019-06-[address] [facility] 1.2.840.114 [id number] 10:13:51 10:45:51 Visit [facility] 350.1.13.10 [place] 4.2.7.2.686 Professio [phone] [address] 2019-06-03 2019-06-03 Orders Doctor GOOD 1.2.840.114 [id number] Univers 00:00:00 00:00:00 Only Unassigned, TOY 350.1.13.10 ity of [place] [facility] 4.2.7.2.686 Pillo as [phone] [facility] [address] 2019-06-03 2019-06-03 Orders Doctor GOOD 1.2.840.114 [id number] 00:00:00 00:00:00 Only Unassigned, TOY 350.1.13.10 [place] [facility] 4.2.7.2.686 [id number] 009 2019-06-02 2019-06-02 [facility] 1.2.585.689 [id number] Univers 00:00:00 00:00:00 [facility] 350.1.13.10 it y of [place] 4.2.7.2.686 Pillo as Professio [phone] [address] Office Building One 2019-06-02 2019-06-02 [facility] 1.2.659.565 [id number] 00:00:00 00:00:00 [facility] 350.1.13.10 [place] 4.2.7.2.686 Professio [phone] [place] [address] Office Building One 2019-05-28 2019-05-29 [facility] 1.2.840.114 [id number] [facility] 12:23:17 08:18:02 Visit [facility] 350.1.13.10 it y of [place] 4.2.7.2.686 Pillo as Professio [phone] [address] Office [facility] One 2019-05-28 2019-05-29 [facility] 1.2.840.114 [id number] 12:23:17 08:18:02 Visit [facility] 350.1.13.10 [place] 4.2.7.2.686 Professio [phone] [place] [address] Office Building One 2019-05-29 2019-05-29 [facility] 1.2.840.114 [id number] Univers 00:00:00 00:00:00 [facility] 350.1.13.10 it y of [place] 4.2.7.2.686 Pillo as Professio [phone] [address] Office Building One 2019-05-29 2019-05-29 [facility] 1.2.840.114 [id number] 06 00:00:00 00:00:00 [facility] 350.1.13.10 [place] 4.2.7.2.686 Professio [phone] [place] [address] Office Building One 2019-05-19 2019-05-19 [facility] 1.2.470.774 [id number] Univers 00:00:00 00:00:00 [facility] 350.1.13.10 it y of [place] 4.2.7.2.686 [place]illo as Professio [phone] [place] [address] One 2019-05-15 2019-05-15 Natalie Dean [facility] 1.2.840.114 [id number] Univers 00:00:00 00:00:00 [facility] 350.1.13.10 it y of [place] 4.2.7.2.686 Pillo as Professio [phone] [place] [address] One 2019-05-13 2019-05-13 [facility] 1.2.840.114 [id number] Univers 00:00:00 00:00:00 [facility] 350.1.13.10 it y of [place] 4.2.7.2.686 Pillo as Professio [phone] [address] One Results Test Description Test Time Test Comments Results Result Comments Source POCT GLUCOSE (AUTOMATED) 2022-09-22 13:29:44 Test Item Value Reference Range Interpretation Comme nts POCT GLU (test code = 1162219183) 105 mg/dL 70-110 Lab Interpretation (test code = 64158-0) [facility] 13:29:44 Test Item Value Reference Range Interpretation Comments POCT GLU (test code = 4437209476) 105 mg/dL 70-110 Lab Interpretation (test code = Normal 65014-4) [facility]
--- NOTE | 2023-01-21 12:39 | RAD REPORT ---
EXAM DESCRIPTION[facility]17 pm CLINICAL HISTORY: Dyspnea;SOB COMPARISON: Chest Single View dated 08/13/2020; Spine Lumbar W obliques dated 09/18/2022 TECHNIQUE: Portable AP view of the chest. FINDINGS: The lungs are clear. No pneumothorax or effusion. Stable mild cardiomegaly. Mediastinal co ntours are unchanged. Advanced right more than left shoulder joint degenerative changes. IMPRESSION: No acute pulmonary process. Mild cardiomegaly.
[2023-01-21] MEDS ORDERED: NOREPINEPHRINE BITARTRATE/D5W 4 MG/250 ML BAG IV ONE ×3 (12:58→20:29)
[2023-01-21] MEDS ORDERED: ACETAMINOPHEN 325 MG TABLET ONE (12:58)
--- NOTE | 2023-01-21 13:37 | ER ---
Nurse's Notes [facility] Name: Vinayak Street Age: 82 yrs Sex: Male : 1940 Arrival Date: 01/21/2023 Time: 11:28 Bed 2 Private MD: Diagnosis: Shortness of breath;Cellulitis of left lower limb;Cellulitis of right lower limb;Heart failure, unspecified;Chronic atrial fibrillation;Other specified diabetes mellitus without complications;Sepsis, unspecified organism Presentation: 01/21 11:28 Chief complaint: EMS states: SOB since this morning. BP 68/36, SpO2 80% on RA, improved hb to 90s on NRB. Coronavirus screen: Client presents with at least one sign or symptom that may indicate coronavirus-19. Provider contacted for isolation considerations. Ebola Screen: No symptoms or risks identified at this time. Initial Sepsis Screen: Does the patient meet any 2 criteria? No. Patient's initial sepsis screen is negative. Does the patient have a suspected source of infection? No. Patient's initial sepsis screen is negative. Risk Assessment: Do you want to hurt yourself or someone else? Patient reports no desire to harm self or others. Onset of symptoms was January 21, 2023. 11:28 Method Of Arrival: EMS: [facility] hb 11:28 Acuity: MARY ANNE 2 hb Historical: - Allergies: 11: adhesive; hb 11:31 Codeine; hb - PMHx: 11: Atrial Fib; CHF; COPD; Diabetes - NIDDM; hb - Immunization history:: Adult Immunizations up to date. - Social history:: Smoking status: . Screenin: [facility] ED Fall Risk Assessment (Adult) Score/Fall Risk Level 3 or more points = High hb Risk Oriented to surroundings, Maintained a safe environment, Educated pt \T\ family on fall prevention, incl call for assistance when getting out of bed. Abuse screen: Denies threats or abuse. Denies injuries from another. Nutritional screening: No deficits noted. Tuberculosis screening: No symptoms or risk factors identified. Assessment: :31 General: Appears in no apparent distress. Behavior is calm, cooperative. Pain: Pain hb currently is 4 out of 10 on a pain scale. Neuro: Level of Consciousness is awake, alert, obeys commands, Oriented to person, place, situation. Cardiovascular: Patient's skin is warm and dry. Rhythm is irregular. Respiratory: Airway is patent Respiratory effort is labored, Respiratory pattern is regular, symmetrical. GI: No signs and/or symptoms were reported involving the gastrointestinal system. : No signs and/or symptoms were reported regarding the genitourinary system. EENT: No signs and/or symptoms were reported regarding the EENT system. Derm: Skin is pink, warm \T\ dry. Musculoskeletal: Reports bilateral lower leg pain and swelling. Edema, redness, and swelling noted to BLE. Left LE weeping. 12:30 Reassessment: Patient appears in no apparent distress at this time. No changes from hb previously documented assessment. Patient and/or family updated on plan of care and expected duration. Pain level reassessed. 13:30 Reassessment: Patient appears in no apparent distress at this time. No changes from hb previously documented assessment. Patient and/or family updated on plan of care and expected duration. Pain level reassessed. 14:49 Reassessment: Patient appears in no apparent distress at this time. No changes from hb previously documented assessment. Patient and/or family updated on plan of care and expected duration. Pain level reassessed. 16:00 Reassessment: Patient appears in no apparent distress at this time. No changes from hb previously documented assessment. Patient and/or family updated on plan of care and expected duration. Pain level reassessed. 17:00 Reassessment: Patient appears in no apparent distress at this time. No changes from hb previously documented assessment. Patient and/or family updated on plan of care and expected duration. Pain level reassessed. 18:00 Reassessment: Patient appears in no apparent distress at this time. No changes from hb previously documented assessment. Patient and/or family updated on plan of care and expected duration. Pain level reassessed. Vital Signs: 11:28 BP 111 / 87; Pulse 106; Resp 20; Temp 97.8(TE); Pulse Ox 95% on R/A; Weight 102.06 kg; hb Height 5 ft. 6 in. ; Pain 4/10; 12:00 BP 64 / 52; Pulse 91; Resp 22; Pulse Ox 95% on 3 lpm NC; hb 12:30 BP 75 / 47; Pulse 97; Resp 16; Pulse Ox 93% on 3 lpm NC; hb 13:00 BP 79 / 44; Pulse 96; Resp 16; Pulse Ox 95% on 3 lpm NC; hb 13:30 BP 66 / 46; Pulse 75; Resp 21; Pulse Ox 92% on 3 lpm NC; hb 13:45 BP 138 / 77; Pulse 69; Resp 18; Temp 99(Ca); Pulse Ox 95% 3 lpm ; hb 14:45 BP 119 / 75; Pulse 85; Resp 22; Pulse Ox 100% on 3 lpm NC; hb 15:00 BP 111 / 63; Pulse 84; Resp 26; Temp 99(Ca); Pulse Ox 100% on 3 lpm NC; hb 15:15 BP 119 / 53; Pulse 89; hb 15:30 BP 113 / 63; Pulse 88; Resp 15; Temp 98.7(Ca); Pulse Ox 100% on 3 lpm NC; hb 15:45 BP 116 / 71; Pulse 88; hb 16:00 BP 122 / 57; Pulse 87; Resp 22; Temp 98.6(Ca); Pulse Ox 100% on 3 lpm NC; hb 16:15 BP 118 / 64; Pulse 92; hb 16:30 BP 76 / 53; Pulse 81; hb 16:45 BP 105 / 78; Pulse 80; hb 17:30 BP 129 / 78; Pulse 95; Resp 15; Pulse Ox 96% on 2 lpm NC; hb 17:45 BP 137 / 82; Pulse 94; Resp 20; Pulse Ox 100% on 2 lpm NC; hb 18:00 BP 134 / 87; Pulse 86; hb 18:15 BP 87 / 66; Pulse 77; hb 18:30 BP 112 / 67; Pulse 76; hb 18:45 BP 121 / 68; Pulse 84; hb 11:28 Body Mass Index 36.32 (102.06 kg, 167.64 cm) hb 11:28 Pain Scale: Adult hb ED Course: 11:28 Patient arrived in ED. hb 11:29 Devonte Garg MD is Attending Physician. kdr 11:31 Triage completed. hb 11:31 Arm band placed on. hb 11:31 Patient has correct armband on for positive identification. Client placed on continuous hb cardiac and pulse oximetry monitoring. NIBP monitoring applied. 11:50 EKG done, by ED staff, reviewed by Devonte Garg MD. jl7 12:00 First set of blood cultures drawn by me. jl7 12:01 Initial lab(s) drawn, by me, sent to lab. Inserted saline lock: 20 gauge in left jl7 antecubital area, using aseptic technique. Blood collected. 12:19 XRAY Chest (1 view) In Process Unspecified. EDMS 12:54 Kavya Leon, RN is Primary Nurse. hb 13:01 Assisted provider with central line placement. Set up central line tray. Triple lumen hb line placed in right femoral. Placement verified by blood return, Dressed with Tegaderm, Blood was collected. Patient tolerated well. 13:33 Cynthia Galo MD is Hospitalizing Provider. kdr 13:52 Barajas cath inserted, using sterile technique, 16 Fr., by me, balloon inflated, to hb gravity drainage, returned milagro urine. Patient tolerated well. 14:08 CT Chest Abdomen Pelvis W/O Contrast In Process Unspecified. EDMS 18:47 Patient admitted, IV remains in place. intact, No redness/swelling at site. jl7 Administered Medications: 12:15 Drug: NS 0.9% IV 500 ml Route: IV; Rate: bolus; Site: left antecubital; jl7 13:30 Follow up: Response: No adverse reaction; IV Status: Infusion continued; IV Intake: hb 500ml 13:00 Drug: Acetaminophen PO 650 mg Route: PO; hb 14:20 Follow up: Response: No adverse reaction; Pain is decreased hb 13:32 Drug: vancoMYCIN IVPB 1 grams Route: IVPB; Infused Over: 2 hrs; Site: Other; hb 15:35 Follow up: Response: No adverse reaction; IV Status: Completed infusion; IV Intake: hb 250ml 13:43 Drug: Norepinephrine IV 0.4 mcg/kg/min Route: IV; Rate: calculated rate; Site: right ph femoral; 15:20 Follow up: Rate change 0.2 mcg/kg/min hb 18:16 Follow up: Rate change 0.1 mcg/kg/min hb 18:29 Follow up: Rate change 0.15 mcg/kg/min hb 18:55 Follow up: Response: No adverse reaction; IV Status: Infusion continued upon admission; hb IV Intake: 325ml 13:52 Drug: NS 0.9% IV 500 ml Route: IV; Rate: bolus; Site: Other; hb 14:22 Follow up: Response: No adverse reaction; IV Status: Completed infusion; IV Intake: hb 500ml 13:52 Drug: NS 0.9% IV 1000 ml Route: IV; Rate: 125 ml/hr; Site: Other; hb 17:55 Follow up: Response: No adverse reaction; IV Status: Completed infusion; IV Intake: hb 475ml 14:39 Drug: Rocephin - Rocephin (cefTRIAXone) IVPB 1 grams Route: IVPB; Infused Over: 30 hb mins; Site: Other; 15:10 Follow up: Response: No adverse reaction; IV Status: Completed infusion; IV Intake: 50mlhb 14:39 Drug: Piperacillin-Tazobactam IVPB 3.375 grams Route: IVPB; Infused Over: 60 mins; hb Site: Other; 15:40 Follow up: Response: No adverse reaction; IV Status: Completed infusion; IV Intake: hb 100ml Medication: 11:31 VIS not applicable for this client. hb Intake: 13:30 IV: 500ml; Total: 500ml. hb 14:22 IV: 500ml; Total: 1000ml. hb 15:10 IV: 50ml; Total: 1050ml. hb 15:35 IV: 250ml; Total: 1300ml. hb 15:40 IV: 100ml; Total: 1400ml. hb 17:55 IV: 475ml; Total: 1875ml. hb 18:55 IV: 325ml; Total: 2200ml. hb Outcome: 13:37 Decision to Hospitalize by Provider. kdr 18:46 Admitted to ICU accompanied by nurse, accompanied by tech, via stretcher, room 7, on jl7 monitor, with chart, Report called to RUFINO Bone 18:46 Condition: stable 18:46 Discharge instructions given to patient, Instructed on the need for admit, Demonstrated understanding of instructions. 18:47 Patient left the ED. jl7 Signatures: Dispatcher [employer] EDMS Devonte Garg MD MD kdr Tania Abebe RN RN Kavya Leon RN RN Ana María Abrams RN RN jl7 Corrections: (The following items were deleted from the chart) 11:31 11:28 Acuity: MARY ANNE 3 hb hb 13:57 13:43 Norepinephrine IV 0.1 mcg/kg/min IV at calculated rate in right femoral hb ph 14:45 13:45 BP 138 / 77; Pulse 69bpm; Resp 18bpm; Pulse Ox 95% 3 lpm; hb hb 15:25 15:19 BP 119 / 53; Pulse 89bpm; hb hb 15:45 15:44 Reassessment: Pt to bathroom via wheelchair with assistance. hb hb 16:29 15:44 Reassessment: Pt to bathroom via wheelchair with assistance. Admission ordered, hb awaiting inpatient orders and bed assignment at this time. hb
--- NOTE | 2023-01-21 13:37 | EDPHYS ---
Physician Documentation [facility] Name: Vinayak Street Age: 82 yrs Sex: Male : 1940 Arrival Date: 01/21/2023 Time: 11:28 Bed 2 Private MD: ED Physician Devonte Garg HPI: 01/21 14:17 This 82 yrs old Male presents to ER via EMS with complaints of Shortness Of Breath. kdr 14:18 Patient states that he had gone to the grocery store and that when he returned, he was kdr getting his groceries out of his car when he was attacked by a dog that jumped on his back and knocked him to the ground. By the time he was able to get his wits about him, the dog had left. He denies getting bitten by the dog. He felt that the dog simply wanted to the food that he was bringing in. Subsequently he became short of breath. And weak. EMS was called and their initial vital signs showed a blood pressure of 68/36 oxygen saturation on room air of 80%. That improved to the 90s percentile range after being placed on nonrebreather. Patient arrived mildly dyspneic to the ED but nontoxic-appearing. Patient was mildly disheveled with clear venous stasis disease and cellulitis to bilateral lower extremities. Patient stated that those legs in these this condition has been there for some time. He otherwise alert and oriented and appropriate despite his blood pressure being on the low side and (in the 70s). Onset: The symptoms/episode began/occurred gradually, 10 day(s) ago, and became worse just prior to arrival, this morning. Severity of symptoms: At their worst the symptoms were mild moderate just prior to arrival, in the emergency department the symptoms are unchanged. The patient has not experienced similar symptoms in the past. The patient has not recently seen a physician. Historical: - Allergies: 11:31 adhesive; hb 11:31 Codeine; hb - PMHx: 11:31 Atrial Fib; CHF; COPD; Diabetes - NIDDM; hb - Immunization history:: Adult Immunizations up to date. - Social history:: Smoking status: . ROS: 14:18 Constitutional: Negative for fever, chills, and weight loss, Eyes: Negative for injury, kdr pain, redness, and discharge, Neck: Negative for injury, pain, and swelling, Respiratory: Negative for shortness of breath, cough, wheezing, and pleuritic chest pain, Abdomen/GI: Negative for abdominal pain, nausea, vomiting, diarrhea, and constipation, Back: Negative for injury and pain, : Negative for injury, bleeding, discharge, and swelling, MS/Extremity: Negative for injury and deformity, Neuro: Negative for headache, weakness, numbness, tingling, and seizure activity. Psych: Negative for depression, anxiety, suicide ideation, homicidal ideation, and hallucinations, Allergy/Immunology: Negative for hives, rash, and allergies, Endocrine: Negative for neck swelling, polydipsia, polyuria, polyphagia, and marked weight changes, Hematologic/Lymphatic: Negative for swollen nodes, abnormal bleeding, and unusual bruising. 14:18 Skin: Positive for cellulitis, discoloration, erythema. Exam: 14:18 Constitutional: This is a well developed, well nourished patient who is awake, alert, kdr and in mild distress. Head/Face: Normocephalic, atraumatic. Eyes: Pupils equal round and reactive to light, extra-ocular motions intact. Lids and lashes normal. Conjunctiva and sclera are non-icteric and not injected. Cornea within normal limits. Periorbital areas with no swelling, redness, or edema. Neck: Trachea midline, no thyromegaly or masses palpated, and no cervical lymphadenopathy. Supple, full range of motion without nuchal rigidity, or vertebral point tenderness. No Meningismus. Chest/axilla: Normal chest wall appearance and motion. Nontender with no deformity. No lesions are appreciated. Cardiovascular: Regular rate and rhythm with a normal S1 and S2. No gallops, murmurs, or rubs. Normal PMI, no JVD. No pulse deficits. Respiratory: Lungs have equal breath sounds bilaterally, clear to auscultation and percussion. No rales, rhonchi or wheezes noted. No increased work of breathing, no retractions or nasal flaring. 14:18 Respiratory: the patient does not display signs of respiratory distress, Respirations: normal, Breath sounds: rales, that are mild, are heard in the left posterior lower lobe. Vital Signs: 11:28 BP 111 / 87; Pulse 106; Resp 20; Temp 97.8(TE); Pulse Ox 95% on R/A; Weight 102.06 kg; hb Height 5 ft. 6 in. ; Pain 4/10; 12:00 BP 64 / 52; Pulse 91; Resp 22; Pulse Ox 95% on 3 lpm NC; hb 12:30 BP 75 / 47; Pulse 97; Resp 16; Pulse Ox 93% on 3 lpm NC; hb 13:00 BP 79 / 44; Pulse 96; Resp 16; Pulse Ox 95% on 3 lpm NC; hb 13:30 BP 66 / 46; Pulse 75; Resp 21; Pulse Ox 92% on 3 lpm NC; hb 13:45 BP 138 / 77; Pulse 69; Resp 18; Temp 99(Ca); Pulse Ox 95% 3 lpm ; hb 14:45 BP 119 / 75; Pulse 85; Resp 22; Pulse Ox 100% on 3 lpm NC; hb 15:00 BP 111 / 63; Pulse 84; Resp 26; Temp 99(Ca); Pulse Ox 100% on 3 lpm NC; hb 15:15 BP 119 / 53; Pulse 89; hb 15:30 BP 113 / 63; Pulse 88; Resp 15; Temp 98.7(Ca); Pulse Ox 100% on 3 lpm NC; hb 15:45 BP 116 / 71; Pulse 88; hb 16:00 BP 122 / 57; Pulse 87; Resp 22; Temp 98.6(Ca); Pulse Ox 100% on 3 lpm NC; hb 16:15 BP 118 / 64; Pulse 92; hb 16:30 BP 76 / 53; Pulse 81; hb 16:45 BP 105 / 78; Pulse 80; hb 17:30 BP 129 / 78; Pulse 95; Resp 15; Pulse Ox 96% on 2 lpm NC; hb 17:45 BP 137 / 82; Pulse 94; Resp 20; Pulse Ox 100% on 2 lpm NC; hb 18:00 BP 134 / 87; Pulse 86; hb 18:15 BP 87 / 66; Pulse 77; hb 18:30 BP 112 / 67; Pulse 76; hb 18:45 BP 121 / 68; Pulse 84; hb 11:28 Body Mass Index 36.32 (102.06 kg, 167.64 cm) hb 11:28 Pain Scale: Adult hb Procedures: 12:41 Central Line: the site was prepped with in sterile fashion, a triple lumen catheter was jmm inserted, in the right femoral vein, in 1 attempts. placement was verified, by blood return, the patient tolerated the procedure, well, US guided. MDM: 13:37 Patient medically screened. kdr 14:18 Data reviewed: vital signs, nurses notes. kdr 01/21 11:30 Order name: Basic Metabolic Panel; Complete Time: 13:14 kdr 01/21 11:30 Order name: CBC with Diff; Complete Time: 13:14 kdr 01/21 11:30 Order name: NT PRO-BNP; Complete Time: 13:14 kdr 01/21 11:30 Order name: PT-INR; Complete Time: 13:14 kdr 01/21 11:30 Order name: Troponin HS; Complete Time: 13:14 kdr 01/21 12:06 Order name: Blood Culture Adult (2) kdr 01/21 12:06 Order name: CMP kdr 01/21 12:06 Order name: Lactate w/ 2H reflex if indic.; Complete Time: 13:28 kdr 01/21 12:06 Order name: Ptt, Activated kdr 01/21 17:01 Order name: CBC with Automated Diff EDMS 01/21 17:01 Order name: CBC with Automated Diff EDMS 01/21 17:01 Order name: Comprehensive Metabolic Panel EDMS 01/21 17:01 Order name: Comprehensive Metabolic Panel EDMS 01/21 17:01 Order name: Lactate w/ 2H reflex if indic. EDMS 01/21 17:01 Order name: Lactate w/ 2H reflex if indic. EDMS 01/21 17:01 Order name: Magnesium EDMS 01/21 17:01 Order name: Magnesium EDMS 01/21 17:01 Order name: NT PRO-BNP EDMS 01/21 17:01 Order name: NT PRO-BNP EDMS 01/21 17:01 Order name: Phosphorus EDMS 01/21 17:01 Order name: Phosphorus EDMS 01/21 17:01 Order name: Troponin High Sensitivity EDMS 01/21 17:01 Order name: Troponin High Sensitivity EDMS 01/21 17:04 Order name: Cortisol EDMS 01/21 17:04 Order name: Iron EDMS 01/21 17:04 Order name: Liver (Hepatic) Function EDMS 01/21 17:04 Order name: Procalcitonin EDMS 01/21 17:04 Order name: Retic Count EDMS 01/21 17:04 Order name: Vitamin B12 Level EDMS 01/21 17:05 Order name: Procalcitonin EDMN 01/21 17:05 Order name: Protime (+INR) EDMN 01/21 17:05 Order name: PTT, Activated Partial Thromb EDMN 01/21 17:05 Order name: T4 Free EDMS 01/21 17:05 Order name: Thyroid Stimulating Hormone EDMN 01/21 17:21 Order name: Lactate Sepsis 2 HR Follow-up; Complete Time: 18:40 EDMS 01/21 11:30 Order name: XRAY Chest (1 view); Complete Time: 13:14 kdr 01/21 13:32 Order name: CT Chest Abdomen Pelvis W/O Contrast; Complete Time: 15:01 kdr 01/21 16:54 Order name: Low Extremity Wo Cont EDMN 01/21 17:01 Order name: Extrem Venous W Compress Jose EDMN 01/21 17:05 Order name: Echo with Doppler EDMN 01/21 17:05 Order name: Echo with Doppler EDMS 01/21 18:24 Order name: CT; Complete Time: 18:40 EDMS 01/21 18:33 Order name: CT; Complete Time: 18:40 EDMS 01/21 11:30 Order name: EKG; Complete Time: 11:31 kdr 01/21 17:01 Order name: CONS Physician Consult EDMN 01/21 17:01 Order name: CONS Physician Consult EDMN 01/21 17:01 Order name: Regular EDMN 01/21 17:02 Order name: CONS Physician Consult EDMN 01/21 11:30 Order name: Cardiac monitoring; Complete Time: 11:44 kdr 01/21 11:30 Order name: EKG - Nurse/Tech; Complete Time: 11:44 kdr 01/21 11:30 Order name: IV Saline Lock; Complete Time: 12:27 kdr 01/21 11:30 Order name: Labs collected and sent; Complete Time: 12:27 kdr 01/21 11:30 Order name: O2 Per Protocol; Complete Time: 11:45 kdr 01/21 11:30 Order name: O2 Sat Monitoring; Complete Time: 11:45 kdr 01/21 12:06 Order name: Accucheck; Complete Time: 12:54 kdr 01/21 12:06 Order name: IV Saline Lock - Large Bore; Complete Time: 12:54 kdr 01/21 12:06 Order name: Vital Signs; Complete Time: 12:54 kdr 01/21 13:31 Order name: Jenn; Complete Time: 13:51 kdr Administered Medications: 12:15 Drug: NS 0.9% IV 500 ml Route: IV; Rate: bolus; Site: left antecubital; jl7 13:30 Follow up: Response: No adverse reaction; IV Status: Infusion continued; IV Intake: hb 500ml 13:00 Drug: Acetaminophen PO 650 mg Route: PO; hb 14:20 Follow up: Response: No adverse reaction; Pain is decreased hb 13:32 Drug: vancoMYCIN IVPB 1 grams Route: IVPB; Infused Over: 2 hrs; Site: Other; hb 15:35 Follow up: Response: No adverse reaction; IV Status: Completed infusion; IV Intake: hb 250ml 13:43 Drug: Norepinephrine IV 0.4 mcg/kg/min Route: IV; Rate: calculated rate; Site: right ph femoral; 15:20 Follow up: Rate change 0.2 mcg/kg/min hb 18:16 Follow up: Rate change 0.1 mcg/kg/min hb 18:29 Follow up: Rate change 0.15 mcg/kg/min hb 18:55 Follow up: Response: No adverse reaction; IV Status: Infusion continued upon admission; hb IV Intake: 325ml 13:52 Drug: NS 0.9% IV 500 ml Route: IV; Rate: bolus; Site: Other; hb 14:22 Follow up: Response: No adverse reaction; IV Status: Completed infusion; IV Intake: hb 500ml 13:52 Drug: NS 0.9% IV 1000 ml Route: IV; Rate: 125 ml/hr; Site: Other; hb 17:55 Follow up: Response: No adverse reaction; IV Status: Completed infusion; IV Intake: hb 475ml 14:39 Drug: Rocephin - Rocephin (cefTRIAXone) IVPB 1 grams Route: IVPB; Infused Over: 30 hb mins; Site: Other; 15:10 Follow up: Response: No adverse reaction; IV Status: Completed infusion; IV Intake: 50mlhb 14:39 Drug: Piperacillin-Tazobactam IVPB 3.375 grams Route: IVPB; Infused Over: 60 mins; hb Site: Other; 15:40 Follow up: Response: No adverse reaction; IV Status: Completed infusion; IV Intake: hb 100ml Disposition: 14:18 Co-signature as Attending Physician, Devonte Garg MD I agree with the assessment and kdr plan of care. Disposition Summary: 01/21/23 13:37 Hospitalization Ordered Hospitalization Status: Inpatient Admission kdr Provider: Cynthia Galo Location: Intensive Care Unit kdr Condition: Serious kdr Problem: new kdr Symptoms: have improved kdr Bed/Room Type: Standard kdr Room Assignment: 7-(01/21/23 17:16) dw Diagnosis - Shortness of breath kdr - Cellulitis of left lower limb kdr - Cellulitis of right lower limb kdr - Heart failure, unspecified kdr - Chronic atrial fibrillation kdr - Other specified diabetes mellitus without complications kdr - Sepsis, unspecified organism kdr Forms: - Medication Reconciliation Form kdr - SBAR form kdr Signatures: Dispatcher [employer] Darline Rodas RN Devonte Bassett MD MD kdr Jordi Cullen PA PA jmm Hall, Patricia RN Kavya Peters ph RN RUFINO Ana María Pimentel RN RN [id number] Brown, Sophia PAClaude PAClaude [id number] Corrections: (The following items were deleted from the chart) 17:16 13:37 kdr dw
[2023-01-21] MEDS ORDERED: NA CHLORIDE 0.9% 100 ML ONE (13:39)
[2023-01-21] MEDS ORDERED: NA CHLORIDE 0.9% 2,000 ML ONE (13:39)
[2023-01-21] MEDS ORDERED: VANCOMYCIN 1 GM/VIAL ONE (13:39)
[2023-01-21] MEDS ORDERED: NA CHLORIDE 0.9% 250 ML ONE (13:39)
[2023-01-21] MEDS ORDERED: PIPERACIL/TAZO 3.375 GM VIAL IV ONE (13:40)
[2023-01-21] MEDS ORDERED: CEFTRIAXONE 1000 MG/VIAL ONE (14:09)
--- NOTE | 2023-01-21 14:57 | RAD REPORT ---
EXAM DESCRIPTION: CT - Chest Abd Pelvis Wo Con - 01/21/2023 2:07 pm CLINICAL HISTORY: weakness. Shortness of breath. Hypotension COMPARISON: Chest Single View dated 01/21/2023 TECHNIQUE: Noncontrast thin axial CT images of the chest, abdomen, and pelvis were performed. Multip lanar reformats were generated and reviewed. All CT scans are performed using dose optimization technique as appropriate and may include automated exposure control or mA/KV adjustment according to patient size. FINDINGS: The lungs show no focal consolidation. Bibasilar platelike atelectasis. Scattered peripher al predominantly ground-glass small nodules and tree-in-bud opacities, the largest in the upper segme nt right lower lobe, series 201, image 34, and in the anterior left upper lobe, image 32.No pleural o r pericardial effusion.No intrathoracic adenopathy. Ectasia of the ascending thoracic aorta measuring 4.2 centimeter in caliber. The liver, spleen, pancreas, and adrenal glands are within normal limits. No hydroureteronephrosis. Right mid and lower pole punctate radiodensities, the largest measuring 4 m illimeter at the right midpole. 2.2 centimeter right lower lobe cystic lesion. No bowel obstruction, free air, free fluid or abscess. Normal appendix. No pathologic lymphadenopath y in the abdomen or pelvis. Urinary bladder is decompressed with Barajas catheter in place. No worrisome osseous finding. Lobulated densities in the right shoulder periarticular region, could relate to osteochondromatosis. IMPRESSION: Scattered peripheral micro nodules and tree-in-bud opacities as above. Findings may rela te to a mild infectious or inflammatory process. Ectasia of the ascending thoracic aorta, measuring 4.2 centimeter in caliber No acute abnormality in the abdomen and pelvis. Incidentally noted nonobstructing smaller right renal calculi. Other incidental findings as above.
[2023-01-21] MEDS ORDERED: ONDANSETRON 4 MG/2 ML VIAL IV PRN (16:53)
[2023-01-21] MEDS ORDERED: VANCOMYCIN 1 GM in NA CHLORIDE 0.9% 250 ML IVPB SCH (16:57)
[2023-01-21] MEDS ORDERED: NA CHLORIDE 0.9% 1,000 ML IV SCH (17:00)
--- NOTE | 2023-01-21 18:23 | RAD REPORT ---
EXAM DESCRIPTION: CT - Lower Ext Wo Con W/ Mpr - 01/21/2023 5:56 pm CLINICAL HISTORY: Cellulitis COMPARISON: None. TECHNIQUE: Noncontrast thin axial CT images of the right lower extremity were obtained. Multiplanar reconstruction images were generated and reviewed. All CT scans are performed using dose optimization technique as appropriate and may include automated exposure control or mA/KV adjustment according to patient size. FINDINGS: Moderate subcutaneous edema along the lower leg and foot, most pronounced along the ventra l/lateral aspects, and dorsum of the foot. No significant skin thickening. No appreciable fluid collections within limits of noncontrast evaluation. No soft tissue gas. The visualized muscle compartments and major tendinous structures are unremarkable. Metallic stent along the femoral -popliteal artery. No discrete masses or adenopathy. No acute fractures or suspicious osseous lesions. Mild degenerative changes of the knee and ankle. IMPRESSION: Moderate subcutaneous edematous changes of the lower leg and foot as above. No soft tissue gas. No appreciable fluid collections within limits of noncontrast evaluation.
--- NOTE | 2023-01-21 18:32 | RAD REPORT ---
EXAM DESCRIPTION: CT - Lower Ext Wo Con W/ Mpr - 01/21/2023 5:59 pm CLINICAL HISTORY: NF. Cellulitis COMPARISON: None. TECHNIQUE: Noncontrast thin axial CT images of the left lower extremity were obtained. Multiplanar r econstruction images were generated and reviewed. All CT scans are performed using dose optimization technique as appropriate and may include automated exposure control or mA/KV adjustment according to patient size. FINDINGS: Pronounced subcutaneous edema along the left lower leg and foot, circumferentially, as wel l as along the foot most pronounced at the dorsum. Moderate skin thickening. No appreciable fluid collections within limits of noncontrast evaluation. No soft tissue gas. The visualized muscle compartments and major tendinous structures are unremarkable. Scattered arterial atherosclerotic calcifications. No discrete masses or adenopathy. No acute fractures or suspicious osseous lesions. Mild degenerative changes of the knee and ankle. 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 IMPRESSION: Pronounced subcutaneous edematous changes of the left lower leg and foot as above, most compatible with cellulitis. No soft tissue gas. No appreciable fluid collections within limits of noncontrast evaluation.
--- NOTE | 2023-01-21 18:45 | EKG ---
Test Date: 2023-01-21 Test Time: 11:42:05 Staff Training And Development Manager: HEMANT MEASUREMENT RESULTS: Intervals: Rate: 101 SC: QRSD: 86 QT: 358 QTc: 464 [place]: P: SC: QRS: 22 T: 3 INTERPRETIVE STATEMENTS: Atrial fibrillation Abnormal ECG Compared to ECG 08/14/2020 08:43:27 Sinus tachycardia no longer present Fusion complex(es) no longer present Ventricular premature complex(es) no longer present ST (T wave) deviation no longer present Electronically Signed On 01-21-23 18:43:52 CDT by Abel Powell
[2023-01-21] MEDS ORDERED: NA CHLORIDE 0.9% 1,000 ML ONE (18:47)
[2023-01-21] MEDS ORDERED: VANCOMYCIN 500 MG in NA CHLORIDE 0.9% 100 ML IVPB ONE (19:00)
[2023-01-21 19:37] LABS: RBC Red Blood Cell Count 3.32 M/uL (4.33-5.43)
[2023-01-21 19:50] LABS: Albumin 2.5 g/dL (3.4-5.0); Bilirubin Total 0.9 mg/dL (0.2-1.0); Potassium 4.2 mEq/L (3.5-5.1); Protein, Total 6.5 g/dL (6.4-8.2)
[2023-01-21] MEDS ORDERED: SODIUM BICARB 50 MEQ/50ML VIAL ONE (19:56)
[2023-01-21] MEDS: NACHLORIDE 0.45% 1,000 ML with NA BICARB 8.4% 50 MEQ IV SCH ×2 (19:56)
[2023-01-21] MEDS ORDERED: NACHLORIDE 0.45% 1,000 ML IV ONE (19:57)
[2023-01-21] MEDS ORDERED: CLINDAMYCIN 600MG/D5W 50 ML IV ONE (20:12)
[2023-01-21] MEDS: FENTANYL CITR 100 MCG/2 ML IV PRN (20:26)
[2023-01-21] MEDS: NOREPINEPHRINE 4 MG in D5W 250 ML IV SCH (20:27)
[2023-01-21 21:03] LABS: Albumin 2.4 g/dL (3.4-5.0); Bilirubin Direct 0.4 mg/dL (0-0.2); Bilirubin Total 0.9 mg/dL (0.2-1.0); Protein, Total 6.6 g/dL (6.4-8.2)
[2023-01-21] MEDS: CLINDAMYCIN INJ 300 MG in NA CHLORIDE 0.9% 50 ML IV SCH (21:28)
[2023-01-21 21:29] LABS: SARS-COV-2 RT PCR NEGATIVE (NEGATIVE)
[2023-01-21] MEDS: CEFEPIME 1 GM in NA CHLORIDE 0.9% 100 ML IV SCH (22:10)
[2023-01-21] MEDS ORDERED: NA CHLORIDE 0.9% 250 ML IV ONE (22:18)
--- NOTE | 2023-01-21 23:07 | P.HP ---
Certification for Inpatient Patient admitted to: Inpatient With expected LOS: >2 Midnights Patient will require the following post-hospital care: Fpc Practitioner: I am a practitioner with admitting privileges, knowledge of patient current condition, hospital course, and medical plan of care. Services: Services provided to patient in accordance with Admission requirements found in Title 42 Section 412.3 of the Code of Federal Regulations Patient History Date of Service: 01/21/23 Reason for admission: Septic shock History of Present Illness: Patient is an 82-year-old gentleman who has a history of coronary artery disease with a prior stent placed and a prior history of congestive heart failure with an ejection fraction of 45% who comes into the emergency room with cellulitis of the left and right leg. Patient states that his legs have been getting worse quickly over the last couple of days. He decided to come into the emergency room for further evaluation. He has significant erythema on the left leg. He has a wound on the right leg. We will go ahead and start him on IV antibiotic therapy. Patient are ready had CT chest abdomen pelvis with no significant abnormalities. Patient states he has had a stent placed in his lower extremity but he does not really remember when it was placed and where it was placed. He does not remember having blood clots in the legs.Patient has a history of atrial fibrillation and coronary artery disease. Patient also with a history of CHF and COPD. Patient was hypotensive in the emergency room and was given IV fluids and started on Levophed. Blood cultures are pending. Patient also with acute on chronic renal insufficiency. Patient is baseline creatinine a couple of years ago was 1.5. Patient's creatinine at this time was 3.7. Go ahead and hydrate patient and get blood pressure stabilized. Hopefully we can get his renal function improved. Strict I's and O's. Allergies adhesive Allergy (Verified 01/21/23 22:22) Rash codeine Allergy (Verified 01/21/23 22:22) Shortness of breath Home Medications: Atorvastatin Calcium [Lipitor*] 10 mg PO BEDTIME 07/24/14 Glimepiride [Amaryl] 1 mg PO DAILY WITH BREAKFAST 07/24/14 Liraglutide [Victoza 2-Estevan] 1.8 mg SQ DAILY WITH BREAKFAST 07/24/14 Furosemide [Lasix*] 40 mg PO BID 08/13/20 Losartan Potassium [Cozaar] 50 mg PO DAILY 08/13/20 Metoprolol Tartrate [Lopressor] 100 mg PO BID 01/21/23 Rivaroxaban [Xarelto*] 15 mg PO DAILY 01/21/23 - Past Medical/Surgical History Has patient received pneumonia vaccine in the past: Yes Diabetic: No -: DM2 - not on insulin therapy -: COPD -: CHF -: Afib -: CAD s/p stent -: coronary stenting - Family History Mother Medical History: Heart disease, Diabetes - Social History Smoking Status: Former smoker Alcohol use: Yes CD- Drugs: No Caffeine use: No Place of Residence: Home Review of Systems 10-point ROS is otherwise unremarkable Physical Examination - Vital Signs Temperature: 98.6 F Blood Pressure: 88/50 Pulse: 96 Respirations: 14 Pulse Ox (%): 100 - Physical Exam General: Alert, In no apparent distress, Oriented x3 HEENT: Atraumatic, PERRLA, Mucous membr. moist/pink, EOMI, Sclerae nonicteric Neck: Supple, 2+ carotid pulse no bruit, No LAD, Without JVD or thyroid abnormality Respiratory: Diminished, Crackles/rales Cardiovascular: Irregular heart rate/rhythm, Systolic murmur Gastrointestinal: Normal bowel sounds, Soft and benign, Non-distended, No tenderness Musculoskeletal: No clubbing, No swelling, No tenderness Integumentary: Tenderness/swelling, Erythema, Warmth Neurological: Sensation intact, Cranial nerves 3-12 intact, Abnormal gait, Abnormal strength Lymphatics: No axilla or inguinal lymphadenopathy - Studies Laboratory Data (last 24 hrs) 01/21/23 12:01: PT 34.6 H, INR 3.15 01/21/23 12:01: WBC 13.70 H, Hgb 12.2 L, Hct 36.6 L, Plt Count 350 01/21/23 12:01: Sodium 130 L, Potassium 4.3, BUN 76 H, Creatinine 3.69 H, Glucose 105 Assessment & Plan - Problems (Diagnosis) (1) Septic shock Current Visit: Yes Status: Acute (2) Bilateral lower leg cellulitis Current Visit: Yes Status: Acute (3) Acute kidney failure Current Visit: Yes Status: Acute (4) History of CAD (coronary artery disease) Current Visit: Yes Status: Acute (5) History of atrial fibrillation Current Visit: Yes Status: Acute (6) COPD (chronic obstructive pulmonary disease) Current Visit: Yes Status: Acute (7) CHF (congestive heart failure) Current Visit: Yes Status: Acute - Plan Plan: 1. Continue with IV hydration 2. IV antibiotic therapy 3. CT imaging of the lower extremity with cellulitis and no abscess or necrotiz ing fasciitis 4. Strict blood pressure and blood sugar control 5. Rate control for his atrial fibrillation. Since patient hypotensive we will give digoxin 6. Continue monitoring renal function closely. Renally dose medications 7. Monitor respiratory status closely 8. Continue with Levophed 9. Check procalcitonin level 10. Wean off Levophed 11. Strict I's and O's 12. Wound care 13. Surgery and infectious disease consultation for wound on the lower extremity 14. Cardiology consultation for atrial fibrillation and nephrology consultation acute renal sufficiency Discharge Plan: Home Plan to discharge in: Greater than 2 days - Advance Directives Does patient have a Living Will: No Does patient have a Durable POA for Healthcare: No - Code Status/Comfort Care Code Status Assessed: Yes Code Status: Full Code Critical Care: No Time Spent Managing PTS Care (In Minutes): 45
[2023-01-22] MEDS: NOREPINEPHRINE 4 MG in D5W 250 ML IV SCH ×2 (01:12→08:06)
[2023-01-22] MEDS ORDERED: NOREPINEPHRINE BITARTRATE/D5W 4 MG/250 ML BAG IV ONE (01:15)
[2023-01-22] MEDS ORDERED: NACHLORIDE 0.45% 1,000 ML IV ONE (01:40)
[2023-01-22] MEDS: NACHLORIDE 0.45% 1,000 ML with NA BICARB 8.4% 50 MEQ IV SCH ×4 (01:41)
[2023-01-22] MEDS: CLINDAMYCIN INJ 300 MG in NA CHLORIDE 0.9% 50 ML IV SCH (03:46)
[2023-01-22] MEDS ORDERED: NA CHLORIDE 0.9% 250 ML IV ONE ×2 (04:00→08:15)
[2023-01-22 04:55] LABS: Absolute Lymphocytes (CBC) 0.6 K/uL (0.7-4.9); Hematocrit 32.7 % (39.6-49.0); Lymphocytes % 4.2 % (15.3-44.8); MCV 103.5 fL (80-100); MPV 7.2 fL (7.6-11.3); RBC Red Blood Cell Count 3.16 M/uL (4.33-5.43)
[2023-01-22 04:57] LABS: Protime INR 1.7
[2023-01-22 05:13] LABS: Albumin 2.3 g/dL (3.4-5.0); Bilirubin Total 0.6 mg/dL (0.2-1.0); Magnesium 2.5 mg/dL (1.6-2.4); Phosphorus 3.7 mg/dL (2.5-4.9); Potassium 3.7 mEq/L (3.5-5.1); Protein, Total 6.3 g/dL (6.4-8.2); Troponin High Sensitivity 16.7 pg/mL (<58.9)
[2023-01-22 05:15] LABS: Thyroid Stimulating Hormone 1.82 uIU/mL (0.358-3.740)
[2023-01-22] MEDS ORDERED: POTASSIUM CL SA 10 MEQ TAB PO ONE (05:32)
[2023-01-22] MEDS: NA CHLORIDE 0.9% 1,000 ML IV SCH ×2 (07:00→11:29)
[2023-01-22] MEDS ORDERED: ALBUMIN HUMAN 25% 100 ML IV ONE (07:30)
[2023-01-22] MEDS: FENTANYL CITR 100 MCG/2 ML IV PRN ×3 (07:34→18:05)
[2023-01-22] MEDS: ENOXAPARIN 30 MG/0.3 ML SQ SCH (07:34)
[2023-01-22] MEDS: HYDROCORTISONE SUC 100 MG INJ IV SCH ×3 (07:34→17:39)
[2023-01-22] MEDS ORDERED: DIGOXIN 0.25 MG/ML AMP IV ONE (08:01)
--- NOTE | 2023-01-22 08:59 | P.CNS ---
Date of Consult: 01/22/23 Chief Complaint: Septic shock History of Present Illness: Patient is an 82 yo male with a past medical history of CAD, CHF, Atrial Fibrillation, right lower extremity stent placement and COPD. Patient presented to the ED with complaints of worsening cellulitis of bilateral lower extremities over the last few days. He was placed on empiric IV antibiotics and admitted for further evaluation. Pt is awake in bed, on 2 L nasal cannula. Complains of bilateral lower leg pain. Right lower leg abrasions and erythema noted. Left lower leg edema, erythema and warmth, along with blister on posterior, weeping. No acute events reported overnight. Allergies adhesive Allergy (Verified 01/21/23 22:22) Rash codeine Allergy (Verified 01/21/23 22:22) Shortness of breath Home Medications: Atorvastatin Calcium [Lipitor*] 10 mg PO BEDTIME 07/24/14 Glimepiride [Amaryl] 1 mg PO DAILY WITH BREAKFAST 07/24/14 Liraglutide [Victoza 2-Estevan] 1.8 mg SQ DAILY WITH BREAKFAST 07/24/14 Furosemide [Lasix*] 40 mg PO BID 08/13/20 Losartan Potassium [Cozaar] 50 mg PO DAILY 08/13/20 Metoprolol Tartrate [Lopressor] 100 mg PO BID 01/21/23 Rivaroxaban [Xarelto*] 15 mg PO DAILY 01/21/23 - Past Medical/Surgical History Diabetic: No -: DM2 - not on insulin therapy -: COPD -: CHF -: Afib -: CAD s/p stent -: coronary stenting - Family History Mother Medical History: Heart disease, Diabetes - Social History Alcohol use: Yes CD- Drugs: No Caffeine use: No Place of Residence: Home Review of Systems Respiratory: As per HPI Cardiovascular: As per HPI Gastrointestinal: Unremarkable Genitourinary: Unremarkable Musculoskeletal: Leg Pain (bilateral) Integumentary: Other (BLE cellulitis) Physical Examination Temp Pulse Resp BP Pulse Ox 98.6 F 96 H 14 88/50 L 100 01/22/23 08:45 01/22/23 08:45 01/22/23 08:45 01/22/23 08:45 01/22/23 08:45 General: Alert, In no apparent distress, Oriented x3 HEENT: Atraumatic, Normocephalic Neck: Supple, JVD not distended Respiratory: Diminished, Crackles/rales Cardiovascular: Irregular heart rate/rhythm Gastrointestinal: Normal bowel sounds, Soft and benign, No tenderness Musculoskeletal: No clubbing, No swelling Integumentary: Tenderness/swelling (BLE), Erythema (BLE), Warmth (BLE) Neurological: Normal speech, Normal tone, Sensation intact, Normal affect Laboratory Data - reviewed Microbiology Data - reviewed Imagings Data: - 01/21: CT Right Lower Extremity: FINDINGS: Moderate subcutaneous edema along the lower leg and foot, most pronounced along the ventral/lateral aspects, and dorsum of the foot. - 01/21: CT Chest Abd Pelvis: IMPRESSION: Scattered peripheral micro nodules and tree-in-bud opacities as above. Findings may relate to a mild infectious or inflammatory process. Ectasia of the ascending thoracic aorta, measuring 4.2 centimeter in caliber. No acute abnormality in the abdomen and pelvis. Medications List Reviewed: yes Conclusions/Impression: Problem List - Acute kidney injury - Cellulitis, bilateral lower leg - Congestive Heart Failure - COPD - Coronary Artery Disease - Atrial Fibrillation - Septic Shock Cellulitis / Septic shock - Right lower leg: abrasion anterior lower leg, erythema, warm - Left lower leg: edema, erythema, warm, blister on posterior side, weeping - CT lower extremity: "IMPRESSION: Moderate subcutaneous edematous changes of the lower leg and foot as above. No soft tissue gas. No appreciable fluid collections within limits of noncontrast evaluation." -01/21 Blood Cultures: Pending - Leukocytosis; afebrile - Currently on IV cefepime, clindamycin and vancomycin Recommendations - Continue IV cefepime and IV Vancomycin (started 01/21); renally dose - Clindamycin discontinued - Awaiting blood culture results - ID will follow up and adjust antibiotics as needed ID will continue to follow and monitor for infection. Case discussed with Claudia Collins
[2023-01-22] MEDS ORDERED: CLINDAMYCIN INJ 300 MG in NA CHLORIDE 0.9% 50 ML IV SCH ×4 (09:00)
[2023-01-22] MEDS ORDERED: CLINDAMYCIN 600MG/D5W 25 ML IV SCH (09:00)
[2023-01-22] MEDS ORDERED: FENTANYL CITR 100 MCG/2 ML IV ONE (09:04)
[2023-01-22] MEDS ORDERED: NOREPINEPHRINE BITARTRATE/D5W 4 MG/250 ML BAG IV SCH (11:00)
[2023-01-22] MEDS ORDERED: NA CHLORIDE 0.9% 1,000 ML IV SCH ×2 (12:28→12:29)
--- NOTE | 2023-01-22 12:38 | P.CNS ---
Date of Consult: 01/22/23 Reason for Consult: SANCHEZ Requesting Physician: Cynthia Galo Chief Complaint: Septic shock History of Present Illness: Patient is an 82-year-old gentleman who has a history of prior MIs per report, coronary artery disease with prior PCI/stenting and some reports of unspecified congestive heart failure, possible AFib unspecified, and possible PAD who came in after a mechanical fall and for LE cellulitis and worsening swelling of the LE Patient states that his legs have been getting worse quickly over the last couple of days. On presentation pt was found to be hypotensive and was admitted to the ICU on pressor support and on IVF and on Abx. He is now off Levophed. Pt also presented with SANCHEZ and while he denied knowledge of any CKD, prior records in this EMR show Cr level outside the normal limits in the past. Allergies adhesive Allergy (Verified 01/21/23 22:22) Rash codeine Allergy (Verified 01/21/23 22:22) Shortness of breath Home Medications: Atorvastatin Calcium [Lipitor*] 10 mg PO BEDTIME 07/24/14 Glimepiride [Amaryl] 1 mg PO DAILY WITH BREAKFAST 07/24/14 Liraglutide [Victoza 2-Estevan] 1.8 mg SQ DAILY WITH BREAKFAST 07/24/14 Furosemide [Lasix*] 40 mg PO BID 08/13/20 Losartan Potassium [Cozaar] 50 mg PO DAILY 08/13/20 Metoprolol Tartrate [Lopressor] 100 mg PO BID 01/21/23 Rivaroxaban [Xarelto*] 15 mg PO DAILY 01/21/23 - Past Medical/Surgical History Diabetic: No -: DM2 - not on insulin therapy -: COPD -: CHF -: Afib -: CAD s/p stent -: coronary stenting - Family History Mother Medical History: Heart disease, Diabetes - Social History Alcohol use: Yes CD- Drugs: No Caffeine use: No Place of Residence: Home Review of Systems General: Weakness, Malaise Eyes: Unremarkable ENT: Unremarkable Respiratory: Shortness of Breath Cardiovascular: As per HPI Gastrointestinal: Unremarkable Genitourinary: Unremarkable Musculoskeletal: Leg Pain, As per HPI Integumentary: Other (Cellulitis of LE, skin excoriations/wounds), As per HPI Neurological: Weakness, Unremarkable Physical Examination Temp Pulse Resp BP Pulse Ox 98.6 F 119 H 17 114/66 99 01/22/23 08:45 01/22/23 11:15 01/22/23 11:15 01/22/23 11:15 01/22/23 11:15 General: Alert, Cooperative HEENT: Atraumatic, Normocephalic, Other (LFNC) Neck: Supple Respiratory: Other (b/l air entry, reduced at bases) Cardiovascular: Other (RRR mostly) Gastrointestinal: Soft and benign, Non-distended, No tenderness Musculoskeletal: Swelling, Erythema Integumentary: Skin breakdown, Skin lesion Neurological: Normal speech, Normal tone, Normal affect Laboratory Data (last 24 hrs) 01/21/23 12:01: WBC 13.70 H, Hgb 12.2 L, Hct 36.6 L, Plt Count 350 01/21/23 12:01: Sodium 130 L, Potassium 4.3, BUN 76 H, Creatinine 3.69 H, Glucose 105 Conclusions/Impression: A/P) 1. Stage II SANCHEZ on possible underlying CKD NOS in the setting of hypotension, recent ARB use, intravascular volume depletion with chronic diuretic use, other -fortunately Cr level is downward trending nicely with normalization of BP and with IVF hydration arguing for a more functional SANCHEZ than intrinsic. CT imaging of kidneys showed no obstructive uropathy 2. Will lower rate of isotonic IVF and stop after the current bag. Pt off pressor support, acceptable MAPs, LA level had normalized. 3. Cont to hold ARB agent and scheduled diuretics, CT imaging of chest showed no sig pulm congestion and no pleural effusions. 4. Abx for LE cellulitis per the primary team, dose meds for reduced CrCl. Edema is likely multifactorial, as cellulitis improves, eval for compression therapy/other if pt does not have severe PAD 5. Abnormal diagnostic imaging of the Rt kidney. Punctuate renal calculi and report of a small renal cystic lesion. Can eval further as OP with an u/s Umair Bernardo MD, VALERY
[2023-01-22] MEDS ORDERED: AMIODARONE HCL 150 MG in D5W 100 ML IV STA (12:55)
[2023-01-22] MEDS: AMIODARONE HCL 900 MG in Dextrose 5%-Water 482 ML IV SCH (13:54)
--- NOTE | 2023-01-22 14:11 | ECHO ---
HEIGHT: 5 ft 6 in WEIGHT: 180 lb 2 oz DATE OF STUDY: 01/22/[address]: Cynthia Galo MD 2-DIMENSIONAL: YES M.MODE: YES DOPPLER: YES COLOR FLOW: YES TDS: YES PORTABLE: YES DEFINITY: BUBBLE STUDY: DIAGNOSIS: SHOCK CARDIAC HISTORY: CATHERIZATION: NO SURGERY: NO PROSTHETIC VALVE: NO PACEMAKER: NO MEASUREMENTS (cm) DIASTOLIC (NORMALS) SYSTOLIC (NORMALS) IVSd 1.1 (0.6-1.2) LA Diam 2.9 (1.9-4.0) LVEF 56% LVIDd 4.1 (3.5-5.7) LVIDs 2.9 (2.0-3.5) %FS 29% LVPWd 1.1 (0.6-1.2) Ao Diam 2.4 (2.0-3.7) 2 DIMENSIONAL ASSESSMENT: RIGHT ATRIUM: NOT WELL SEEN LEFT ATRIUM: NORMAL RIGHT VENTRICLE: NOT WELL SEEN LEFT VENTRICLE: NORMAL TRICUSPID VALVE: MILD TRICUSPID REGURGITATION MITRAL VALVE: MITRAL ANNULAR CALCIFICATION PULMONIC VALVE: NORMAL AORTIC VALVE: NOT WELL SEEN PERICARDIAL EFFUSION: NONE AORTIC ROOT: NORMAL LEFT VENTRICULAR WALL MOTION: UNABLE TO EVALUATE DUE TO POOR WINDOWS DOPPLER/COLOR FLOW: MILD TRICUSPID REGURGITATION COMMENTS: 1. VERY POOR STUDY (POOR WINDOWS) 2. OVERALL, LEFT VENTRICULAR EJECTION FRACTION APPEARS NORMAL TECHNOLOGIST: ANTONY VALDEZ
--- NOTE | 2023-01-22 18:49 | RAD REPORT ---
EXAM DESCRIPTION: US - Extrem Venous W Compress Jose - 01/22/2023 6:40 pm CLINICAL HISTORY: DVT Bilateral leg edema and swelling. COMPARISON: <Comparisons> TECHNIQUE: Real-time sonographic interrogation of the left and right lower extremity deep venous sys tems was performed. FINDINGS: Normal compressibility, flow augmentation, phasic flow and spontaneous flow is identified in both the left and right lower extremity deep venous systems. IMPRESSION: No sonographic evidence of left or right lower extremity deep venous thrombosis.
[2023-01-22] MEDS ORDERED: MUPIROCIN 2% OINT 22GM TUBE TOP SCH (21:00)
[2023-01-22] MEDS: CEFEPIME 1 GM in NA CHLORIDE 0.9% 100 ML IV SCH (21:20)
[2023-01-23] MEDS: HYDROCORTISONE SUC 100 MG INJ IV SCH ×2 (00:10→08:45)
[2023-01-23] MEDS: VANCOMYCIN 1.5 GM in NA CHLORIDE 0.9% 500 ML IVPB SCH (05:54)
--- NOTE | 2023-01-23 06:14 | P.PN ---
Subjective Date of Service: 01/22/23 PATIENT WAS WEANED OFF OF LEVOPHED. CLINICALLY APPEARS TO BE DOING BETTER. WILL START ENGAGING PHYSICAL THERAPY IN HIS CARE. HOPEFULLY WE CAN START GETTING HIM OUT OF BED AND AMBULATING. CONTINUE WITH ANTIBIOTIC THERAPY. RENAL FUNCTION IS RECOVERING. APPRECIATE CARDIOLOGY INPUT. Physical Examination - Vital Signs Temperature: 97 F Blood Pressure: 133/81 Pulse: 119 Respirations: 20 Pulse Ox (%): 100 - Physical Exam General: Alert, In no apparent distress, Oriented x3 Respiratory: Clear to auscultation bilaterally, Normal air movement Cardiovascular: Irregular heart rate/rhythm Gastrointestinal: Normal bowel sounds, Soft and benign, Non-distended Musculoskeletal: No clubbing Integumentary: Skin lesion, Tenderness/swelling, Erythema, Warmth Neurological: Sensation intact, Cranial nerves 3-12 intact, Abnormal strength Assessment & Plan - Problems (Diagnosis) (1) Septic shock Current Visit: Yes Status: Acute (2) Bilateral lower leg cellulitis Current Visit: Yes Status: Acute (3) Acute kidney failure Current Visit: Yes Status: Acute (4) History of CAD (coronary artery disease) Current Visit: Yes Status: Acute (5) History of atrial fibrillation Current Visit: Yes Status: Acute (6) COPD (chronic obstructive pulmonary disease) Current Visit: Yes Status: Acute (7) CHF (congestive heart failure) Current Visit: Yes Status: Acute - Plan Plan: 1. Continue with IV hydration 2. IV antibiotic therapy 3. CT imaging of the lower extremity with cellulitis and no abscess or necrotizing fasciitis 4. Strict blood pressure and blood sugar control 5. Rate control for his atrial fibrillation. On amiodarone drip 6. Continue monitoring renal function closely. Renally dose medications 7. Monitor respiratory status closely 8. Weaned off Levophed 9. Procalcitonin level trending down 10. Wean off Levophed 11. Strict I's and O's 12. Wound care 13. Surgery and infectious disease consultation for wound on the lower extremity appreciated 14. Cardiology consultation for atrial fibrillation and nephrology consultation acute renal sufficiency appreicated - Advance Directives Does patient have a Living Will: No Does patient have a Durable POA for Healthcare: No - Code Status/Comfort Care Code Status: Full Code
[2023-01-23 06:58] LABS: Absolute Lymphocytes (CBC) 0.2 K/uL (0.7-4.9); Hematocrit 30.4 % (39.6-49.0); Lymphocytes % 2.5 % (15.3-44.8); MCV 105.1 fL (80-100); MPV 7.4 fL (7.6-11.3); RBC Red Blood Cell Count 2.89 M/uL (4.33-5.43)
[2023-01-23 07:20] LABS: Albumin 2.1 g/dL (3.4-5.0); Bilirubin Total 0.5 mg/dL (0.2-1.0); Magnesium 2.4 mg/dL (1.6-2.4); Potassium 4.1 mEq/L (3.5-5.1); Protein, Total 5.9 g/dL (6.4-8.2)
[2023-01-23 08:16] LABS: White Blood Cell Scan OK (OK)
[2023-01-23 08:20] LABS: Platelet Estimate ADEQ
[2023-01-23 08:22] LABS: Blood Morphology Comment NOTED (NOT SEEN); Platelets, Giant 1+
[2023-01-23 08:23] LABS: Anisocytosis 2+; Macrocytosis 2+
[2023-01-23] MEDS: ENOXAPARIN 30 MG/0.3 ML SQ SCH (08:45)
--- NOTE | 2023-01-23 09:20 | P.PN ---
Subjective Date of Service: 01/23/23 Chief Complaint: Septic shock Subjective: No new changes, Improving Patient sitting in bed, alert and oriented x3. On 2L NC, breathing comfortably. Pt states he is overall feeling better today. No acute events reported overnight. Physical Examination - Vital Signs Temperature: 97 F Blood Pressure: 133/81 Pulse: 119 Respirations: 20 Pulse Ox (%): 100 - Physical Exam General: Alert, In no apparent distress, Oriented x3 HEENT: Atraumatic, Normocephalic Neck: Supple, JVD not distended Respiratory: Diminished Cardiovascular: No edema, Normal S1 S2 Gastrointestinal: Normal bowel sounds, Soft and benign, Non-distended Musculoskeletal: No clubbing, No swelling Integumentary: Erythema (Bilateral lower legs), Warmth (bilateral lower legs) Neurological: Normal speech, Normal tone, Normal affect Urinary: Barajas catheter (clear yellow urine) - Studies Laboratory Data - reviewed Microbiology Data (last 24 hrs): - reviewed Imagings Data: - reviewed Medications List Reviewed: Yes Assessment And Plan - Plan Problem List - Acute kidney injury - Cellulitis, bilateral lower leg - Congestive Heart Failure - COPD - Coronary Artery Disease - Atrial Fibrillation - Septic Shock Cellulitis / Septic shock - Right lower leg: abrasion anterior lower leg, erythema, warm - Left lower leg: edema, erythema, warm, blister on posterior side, weeping - CT lower extremity: "IMPRESSION: Moderate subcutaneous edematous changes of the lower leg and foot as above. No soft tissue gas. No appreciable fluid collections within limits of noncontrast evaluation." - 01/21 Blood Cultures: no growth to date - Leukocytosis improving; afebrile - Currently on IV cefepime and vancomycin Recommendations - Cellulitis: Continue IV Cefepime and IV Vancomycin (started 01/21) for now; will reevaluate tomorrow and adjust antibiotic regimen as appropriate - Wound care: apply mupirocin to BLE and wrap with kerlix, then sofi bandage. Keep legs elevated. ID will continue to follow and monitor for infection. Case discussed with Dr. Wright N
--- NOTE | 2023-01-23 09:41 | CON ---
Date of Consultation: 01/22/2023 Reason For Consultation: Atrial fibrillation with rapid ventricular response. History Of Present Illness: Mr. Street is 82, who was just in the hospital recently for the same ross gnosis, which included severe cellulitis. He has a history of paroxysmal atrial fibrillation, faustin ry artery disease, congestive heart failure, mild, 45% to 50%, chronic systolic, COPD, has had a hist ory of stent, diabetes. Comes into the hospital with severe cellulitis, rapid ventricular response, atrial fibrillation. No chest pain. Denies PND, orthopnea. Has bilateral pedal edema. Denied any syncope. Has had some fever, but no chills. He has been followed by Infectious Disease. He is on L evophed for hypotension. Asymptomatic otherwise. Allergies: HE IS ALLERGIC TO CODEINE AND ADHESIVE. Review of Systems: Negative. Social History: Negative. Family History: Negative. Medications: At home include Lasix, metoprolol, Xarelto, Lipitor, glimepiride, and Victoza. Physical Examination: General: Very pleasant. Vital Signs: Blood pressure 90/60, atrial fibrillation at a rate of 113. HEENT: Negative. Neck: Supple with no bruit. Chest: Clear. Cardiac: Revealed atrial fibrillation. Abdomen: Obese, but benign. Extremities: Revealed cellulitis bilateral. Diagnostic Data: Fairly unremarkable except for the EKG. Impression And Plan: Recurrent atrial fibrillation, chronic, on Xarelto at home and metoprolol alrea dy. I am sure this may be exacerbated because of his cellulitis and hypotension. Nevertheless, I th ink we need to put him on IV amiodarone drip until he converse and then after that we will switch him to p.o. amiodarone 400 b.i.d. If he stays in atrial fibrillation considering his age and all his ot her problems, I think it would be reasonable to send him for possible ablation, but I will deal with that as an outpatient. For now, I agree with present regimen. Echocardiogram is pending. Continue Levophed and other therapy. Continue Infectious Disease followup. His chronic obstructive pulmonary disease, congestive heart failure, coronary artery disease, and diabetes seem to be stable at this p oint. We will continue to follow. [place]/CLAUDY Voice ID: [id number] Report ID: [id number]
--- NOTE | 2023-01-23 10:47 | PN ---
Date of Progress Note: 01/23/[address] had came in with atrial fibrillation, rapid ventricular response, hypotension, severe cell ulitis. Has a history of CAD, CHF, COPD, diabetes. Overnight, he remained on Levophed. Blood press ure has improved. He was placed on IV amiodarone. He is still in atrial fibrillation, rate is isaiah r controlled. He is on Xarelto. He is on antibiotics. Infectious Disease is following. Echocardio gram which was done was normal. Ejection fraction has improved, used to be about 45% to 50%. It gerard ears to be better at this time. Nevertheless, as far as atrial fibrillation is concerned, we will co ntinue IV amiodarone, eventually put him on p.o. and if it that continues to be an issue, we will pro bably refer him for an ablation down the road. We will continue to follow meanwhile. [place]/CLAUDY Voice ID: [id number] Report ID: [id number]
[2023-01-23] MEDS: MUPIROCIN 2% OINT 22GM TUBE TOP SCH (14:19)
--- NOTE | 2023-01-23 16:07 | P.PN ---
Subjective Date of Service: 01/23/23 Chief Complaint: Septic shock No acute events overnight. He has been off the norepinephrine drip since about 09:00 AM yesterday morning. He remains in atrial fibrillation on the amiodarone drip. Per RN, his heart rates reach 150+ bpm with movement. He denies any chest pain, palpitations, or shortness of breath. Review of Systems 10-point ROS is otherwise unremarkable Musculoskeletal: Leg Pain Integumentary: Rash (leg cellulitis) Physical Examination - Vital Signs Temperature: 97 F Blood Pressure: 133/81 Pulse: 119 Respirations: 20 Pulse Ox (%): 100 - Physical Exam General: Alert, In no apparent distress, Oriented x3 HEENT: Atraumatic, Mucous membr. moist/pink, EOMI, Sclerae nonicteric Neck: JVD not distended Respiratory: Clear to auscultation bilaterally, Normal air movement Cardiovascular: No edema, No gallops, No rubs, No murmurs, Irregular heart rate/rhythm Gastrointestinal: Normal bowel sounds, Soft and benign, Non-distended, No tenderness, No rebound, No guarding Musculoskeletal: No clubbing Integumentary: Other (bilateral lower extremities wrapped in clean dressing. Demarcation on right lower extremity shows significant improvement in erythema/cellulitis.) Neurological: Normal speech, Normal affect - Studies Medications List Reviewed: Yes Assessment And Plan - Plan # Septic Shock likely secondary to Bilateral Lower Extremity Cellulitis He met sepsis criteria based on HR > 90 bpm, RR > 20 breaths/min, and WBC > 12,000, and the suspected source is cellulitis. Severe sepsis was suspected due to concern for tissue hypoperfusion/organ dysfunction based on hypotension (SBP < 90, MAP < 65), creatinine >2.0 mg/dL (without ESRD), coagulopathy (INR > 1.5), and lactic acid > 2 mmol/L. Septic shock is suspected due to SBP < 90 mmHg , MAP <65. - Infectious Diseases was consulted and spoke with SALLY Hassan - recommendations appreciated - General Surgery consulted and spoke with Dr. Freeman - recommendations appreciated - Sepsis order set was initiated - Lactate trend: 2.6 -> 1.6 -> 1.5 - Blood cultures drawn before antibiotics were given - Broad spectrum antibiotics started: Vancomycin + Cefepime - In regards to fluids: - 30 mL/kg of IV fluids was given based on his actual body weight - Norepinephrine was started due to persistent hypotension - Left CT lower extremity = "pronounced subcutaneous edematous changes of the left lower leg and foot as above, most compatible with cellulitis. No soft tissue gas. No appreciable fluid collections within limits of noncontrast evaluation." - Right CT lower extremity = "moderate subcutaneous edematous changes of the lower leg and foot as above. No soft tissue gas. No appreciable fluid collections within limits of noncontrast evaluation." - Bilateral lower extremity Doppler = "no sonographic evidence of left or right lower extremity deep venous thrombosis." # Paroxysmal Atrial Fibrillation with Rapid Ventricular Response # Coronary Artery Disease s/p PCI # Peripheral Artery Disease s/p Femoral-Popliteal Stent His [id number] = 5 (CHF=1, Age>75=2, DM=1, CAD=1), which warrants anticoagulation. - Cardiology consulted and spoke with Dr. 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 Findings may relate to a mild infectious or inflammatory process. Ectasia of the ascending thoracic aorta, measuring 4.2 centimeter in caliber. No acute abnormality in the abdomen and pelvis. Incidentally noted nonobstructing smaller right renal calculi. Other incidental findings as above." - Follow-up with PCP for further evaluation # Chronic Compensated Diastolic Congestive Heart Failure - No evidence of acute CHF exacerbation - Transthoracic echocardiogram = "1. very poor study (poor windows) 2. overall, left ventricular ejection fraction appears normal" # Chronic Obstructive Pulmonary Disease - No evidence of acute COPD exacerbation Obed Zhang M.D.
[2023-01-23] MEDS: AMIODARONE HCL 900 MG in Dextrose 5%-Water 482 ML IV SCH (18:38)
[2023-01-23 19:56] LABS: Urine Bacteria None Seen /HPF (<20); Urine Bilirubin NEGATIVE (Negative); Urine Blood 2+ (Negative); Urine Clarity Clear (Clear); Urine Color Light-Yellow (Yellow); Urine Glucose 1+ (Negative); Urine Mucus Slight /HPF (None Seen); Urine Protein TRACE (Negative); Urine Urobilinogen Normal (Normal); Urine pH 5.5 (5.0-7.0)
[2023-01-23] MEDS: CEFEPIME 1 GM in NA CHLORIDE 0.9% 100 ML IV SCH (20:46)
[2023-01-23] MEDS: ENOXAPARIN 80 MG/0.8 ML SQ SCH (20:46)
--- NOTE | 2023-01-23 21:28 | P.PN ---
Date of Service: 01/23/23 Vital Signs Temp Pulse Resp BP Pulse Ox 96.9 F 85 19 116/75 100 01/23/23 20:00 01/23/23 20:00 01/23/23 20:00 01/23/23 20:00 01/23/23 20:00 Medications Acetaminophen (Acetaminophen 500 Mg Tab) 500 mg PO Q4HP PRN PRN Reason: pain/fever Enoxaparin Sodium (Enoxaparin 80 Mg/0.8 Ml) 80 mg SQ Q12HR [facility] Last Admin: 01/23/23 20:46 Dose: 80 mg Fentanyl Citrate (Fentanyl Citr 100 Mcg/2 Ml) 25 mcg IV Q4H PRN PRN Reason: Pain scale 8-10 (Severe) Last Admin: 01/22/23 18:05 Dose: 25 mcg Cefepime HCl 1 gm/ Sodium (Chloride) 100 mls @ 200 mls/hr IV Q24H [facility]; Protocol Last Admin: 01/23/23 20:46 Dose: 100 mls Vancomycin HCl 1.5 gm/ Sodium (Chloride) 500 mls @ 250 mls/hr IVPB Q36H [facility] Last Admin: 01/23/23 05:54 Dose: 500 mls Norepinephrine/Dextrose (Levophed 4 Mg/250 Ml-D5w) 4 mg in 250 mls @ 38.273 mls/hr IV TITR [facility]; Protocol Amiodarone HCl 900 mg/ (Dextrose) 500 mls @ 0 mls/hr IV CONT [facility]; Protocol Last Admin: 01/23/23 18:38 Dose: 500 mls Mupirocin (Mupirocin 2% Oint 22gm Tube) 1 appl TOP DAILY [facility] Last Admin: 01/23/23 14:19 Dose: 1 appl Ondansetron HCl (Ondansetron 4 Mg/2 Ml Vial) 4 mg IV Q4H PRN PRN Reason: NAUSEA / VOMITING Sodium Chloride (Flush Normal Saline 10 Ml) 10 ml IV BID [facility] Last Admin: 01/23/23 20:47 Dose: 10 ml Microbiology Results 01/21/23 12:48 Blood - Blood Aerobic Blood Culture - Preliminary No growth in 24 hours. 01/21/23 12:48 Blood - Blood Anaerobic Blood Culture - Preliminary No growth in 24 hours. 01/21/23 12:00 Blood - Blood Aerobic Blood Culture - Preliminary No growth in 24 hours. 01/21/23 12:00 Blood - Blood Anaerobic Blood Culture - Preliminary No growth in 24 hours. Assessment/ Plan: Nephrology No dyspnea No chest pain Feeling better No acute events overnight Vitals, medications, blood work and imaging reviewed in the chart. NAD. NCAT. MMM. Neck supple. Normal respiratory effort. RRR. Abd ND. No C/C. Hip & LE Edema trace. LE wounds. AAO. Normal speech. LEFT VENTRICULAR WALL MOTION: UNABLE TO EVALUATE DUE TO POOR WINDOWS DOPPLER/COLOR FLOW: MILD TRICUSPID REGURGITATION COMMENTS: 1. VERY POOR STUDY (POOR WINDOWS) 2. OVERALL, LEFT VENTRICULAR EJECTION FRACTION APPEARS NORMAL EXAM DESCRIPTION: CT - Chest Abd Pelvis Wo Con - 01/21/2023 2:07 pm CLINICAL HISTORY: weakness. Shortness of breath. Hypotension COMPARISON: Chest Single View dated 01/21/2023 TECHNIQUE: Noncontrast thin axial CT images of the chest, abdomen, and pelvis were performed. Multiplanar reformats were generated and reviewed. All CT scans are performed using dose optimization technique as appropriate and may include automated exposure control or mA/KV adjustment according to patient size. FINDINGS: The lungs show no focal consolidation. Bibasilar platelike atelectasis. Scattered peripheral predominantly ground-glass small nodules and tree-in-bud opacities, the largest in the upper segment right lower lobe, series 201, image 34, and in the anterior left upper lobe, image 32.No pleural or pericardial effusion.No intrathoracic adenopathy. Ectasia of the ascending thoracic aorta measuring 4.2 centimeter in caliber. The liver, spleen, pancreas, and adrenal glands are within normal limits. No hydroureteronephrosis. Right mid and lower pole punctate radiodensities, the largest measuring 4 millimeter at the right midpole. 2.2 centimeter right lower lobe cystic lesion. No bowel obstruction, free air, free fluid or abscess. Normal appendix. No pathologic lymphadenopathy in the abdomen or pelvis. Urinary bladder is decompressed with Barajas catheter in place. No worrisome osseous finding. Lobulated densities in the right shoulder periarticular region, could relate to osteochondromatosis. IMPRESSION: Scattered peripheral micro nodules and tree-in-bud opacities as above. Findings may relate to a mild infectious or inflammatory process. Ectasia of the ascending thoracic aorta, measuring 4.2 centimeter in caliber No acute abnormality in the abdomen and pelvis. Stage II SANCHEZ CKD III with proteinuria -No NSAIDs HTN with CKD/ CHF complicated by hypotension -Levophed prn Diastolic CHF, chronic -Daily weight -Low sodium diet DM II with CKD -Recommend RISS Anemia in chronic illness -Monitor H&H Septic Shock BL LE Cellulitis -Continue abx
[2023-01-24 05:41] LABS: Potassium 3.8 mEq/L (3.5-5.1)
[2023-01-24] MEDS ORDERED: POTASSIUM 25 MEQ EFFERV TAB PO ONE (06:15)
[2023-01-24] MEDS: ENOXAPARIN 80 MG/0.8 ML SQ SCH ×2 (08:35→21:20)
[2023-01-24] MEDS ORDERED: ENOXAPARIN 40 MG/0.4 ML SQ SCH (09:00)
[2023-01-24] MEDS ORDERED: FLUTICASONE 50MCG NASAL SPRAY NAS PRN (09:25)
[2023-01-24] MEDS: CETIRIZINE HCL 5 MG TABLET PO PRN (09:43)
[2023-01-24] MEDS: MONTELUKAST 10 MG TAB PO SCH (09:45)
[2023-01-24] MEDS: FENTANYL CITR 100 MCG/2 ML IV PRN (11:36)
[2023-01-24] MEDS: MUPIROCIN 2% OINT 22GM TUBE TOP SCH (11:36)
--- NOTE | 2023-01-24 11:53 | P.PN ---
(S) Pt doing better overall, remains on Amio gtt but BP no longer low, LE edema better with legs raised, renal function steadily improving. General: Alert, Cooperative HEENT: Atraumatic, Normocephalic, Other (LFNC) Neck: Supple Respiratory: Other (b/l air entry, reduced at bases) Cardiovascular: Other (RRR mostly) Gastrointestinal: Soft and benign, Non-distended, No tenderness Musculoskeletal: Swelling, Erythema improved of the LE Integumentary: Skin breakdown, Skin lesion -see description elsewhere Neurological: Normal speech, awake, alert. Normal tone, Normal affect Laboratory Data (last 24 hrs) Reviewed in the EMR Conclusions/Impression: A/P) 1. Stage II SANCHEZ on possible underlying CKD NOS in the setting of hypotension, recent ARB use, intravascular volume depletion with chronic diuretic use, other -resolving wih Cr level downward trending nicely with normalization of BP and with IVF hydration. IVF stopped early on. 2. Would cont to hold ARB agent at this time. 3. CT imaging of chest on admission showed no sig pulm congestion and no pleural effusions. Echo was poor quality but no sig LVEF impairment noted. Pt was taking a larger loop diuretic dose at home, can consider resuming at a lower dose of 20 mg BID in the following days. 4. Abx for LE cellulitis per the primary team, Abx doses can be adjusted since CrCl has improved. Edema was likely multifactorial, as cellulitis improves, eval for compression therapy/other if pt does not have severe PAD 5. Abnormal diagnostic imaging of the Rt kidney. Punctuate renal calculi and report of a small renal cystic lesion. Can eval further as OP with an u/s Umair Bernardo MD, VALERY
--- NOTE | 2023-01-24 12:15 | P.PN ---
Date of Service: 01/24/23 Subjective Date of Service: 01/24/23 Chief Complaint: Septic shock Subjective: No new changes, Improving Patient sitting in bed, alert and oriented x3. On 2L NC, SpO2 100% breathing comfortably. Pt states he is feeling well and that his legs are doing better. No acute events reported overnight. Physical Examination - Vital Signs Temp Pulse Resp BP Pulse Ox 98.1 F 98 H 20 128/96 H 97 01/24/23 08:00 01/24/23 09:00 01/24/23 11:36 01/24/23 08:00 01/24/23 11:36 - Physical Exam General: Alert, In no apparent distress, Oriented x3 HEENT: Atraumatic, Normocephalic Neck: Supple, JVD not distended Respiratory: Diminished; on 2L NC Cardiovascular: No edema, atrial fibrillation Gastrointestinal: Normal bowel sounds, Soft and benign, Non-distended Musculoskeletal: No clubbing, No swelling Integumentary: LLE with erythema, open blisters on posterior lower leg weeping. RLE superficial wounds with some bleeding noted. Neurological: Normal speech, Normal tone, Normal affect Urinary: Barajas catheter (clear yellow urine) - Studies Laboratory Data - reviewed Microbiology Data - reviewed Imagings Data: - reviewed Medications List Reviewed: Yes Assessment And Plan - Plan Problem List - Acute kidney injury - Cellulitis, bilateral lower leg - Congestive Heart Failure - COPD - Coronary Artery Disease - Atrial Fibrillation - Septic Shock Cellulitis / Septic shock - Right lower leg: abrasion anterior lower leg, erythema, warm - Left lower leg: edema, erythema, warm, blister on posterior side, weeping - CT lower extremity: "IMPRESSION: Moderate subcutaneous edematous changes of the lower leg and foot as above. No soft tissue gas. No appreciable fluid collections within limits of noncontrast evaluation." - 01/21 Blood Cultures: no growth to date - Leukocytosis improving; afebrile - Currently on IV cefepime (01/21-) and IV vancomycin (01/21-) Recommendations -- Cellulitis: Continue IV Cefepime and IV Vancomycin (started 01/21) for now - upon discharge, consider PO Doxycycline and PO Rifampin - Continue current wound care: apply mupirocin to BLE and wrap with kerlix, then sofi bandage. Keep legs elevated. ID will continue to follow and monitor for infection. Case discussed with Claudia Collins
[2023-01-24] MEDS: AMIODARONE HCL 900 MG in Dextrose 5%-Water 482 ML IV SCH (13:05)
[2023-01-24] MEDS: ACETAMINOPHEN 500 MG TAB PO PRN (14:16)
--- NOTE | 2023-01-24 15:22 | P.PN ---
Subjective Date of Service: 01/24/23 Chief Complaint: Septic shock No acute events overnight. He appears well this morning; however, he continues to experience intermittent episodes of atrial fibrillation with rapid ventricular response despite the 1 mg/min dose of amiodarone drip. Currently, he denies any chest pain, palpitations, or shortness of breath. Review of Systems 10-point ROS is otherwise unremarkable Physical Examination - Vital Signs Temperature: 98.1 F Blood Pressure: 128/96 Pulse: 98 Respirations: 18 Pulse Ox (%): 98 - Studies Medications List Reviewed: Yes Assessment And Plan - Plan - Physical Exam General: Alert, In no apparent distress, Oriented x3 HEENT: Atraumatic, Mucous membr. moist/pink, EOMI, Sclerae nonicteric Neck: JVD not distended Respiratory: Clear to auscultation bilaterally, Normal air movement Cardiovascular: No edema, No murmurs, Irregular heart rate/rhythm Gastrointestinal: Normal bowel sounds, Soft, Non-distended, No tenderness, Musculoskeletal: No clubbing Integumentary: Other (bilateral lower extremities wrapped in clean dressing. Demarcation on right lower extremity shows significant improvement in erythema/cellulitis) Neurological: Normal speech, Normal affect # Septic Shock likely secondary to Bilateral Lower Extremity Cellulitis - improved He met sepsis criteria based on HR > 90 bpm, RR > 20 breaths/min, and WBC > 12,000, and the suspected source is cellulitis. Severe sepsis was suspected due to concern for tissue hypoperfusion/organ dysfunction based on hypotension (SBP < 90, MAP < 65), creatinine >2.0 mg/dL (without ESRD), coagulopathy (INR > 1.5), and lactic acid > 2 mmol/L. Septic shock is suspected due to SBP < 90 mmHg , MAP <65. - Infectious Diseases was consulted and spoke with SALLY Hassan - recommendations appreciated - General Surgery consulted and spoke with Dr. Freeman - recommendations appreciated - Sepsis order set was initiated - Lactate trend: 2.6 -> 1.6 -> 1.5 - Blood cultures drawn before antibiotics were given - Broad spectrum antibiotics started: Vancomycin + Cefepime - In regards to fluids: - 30 mL/kg of IV fluids was given based on his actual body weight - Norepinephrine was started due to persistent hypotension - which has since been weaned off - Left CT lower extremity = "pronounced subcutaneous edematous changes of the left lower leg and foot as above, most compatible with cellulitis. No soft tissue gas. No appreciable fluid collections within limits of noncontrast evaluation." - Right CT lower extremity = "moderate subcutaneous edematous changes of the lower leg and foot as above. No soft tissue gas. No appreciable fluid collections within limits of noncontrast evaluation." - Bilateral lower extremity Doppler = "no sonographic evidence of left or right lower extremity deep venous thrombosis." # Paroxysmal Atrial Fibrillation with Rapid Ventricular Response # Coronary Artery Disease s/p PCI # Peripheral Artery Disease s/p Femoral-Popliteal Stent His [id number] = 5 (CHF=1, Age>75=2, DM=1, CAD=1), which warrants anticoagulation. - Cardiology consulted and spoke with Dr. 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 Findings may relate to a mild infectious or inflammatory process. Ectasia of the ascending thoracic aorta, measuring 4.2 centimeter in caliber. No acute abnormality in the abdomen and pelvis. Incidentally noted nonobstructing smaller right renal calculi. Other incidental findings as above." - Follow-up with PCP for further evaluation # Chronic Compensated Diastolic Congestive Heart Failure - No evidence of acute CHF exacerbation - Transthoracic echocardiogram = "1. very poor study (poor windows) 2. overall, left ventricular ejection fraction appears normal" # Chronic Obstructive Pulmonary Disease - No evidence of acute COPD exacerbation Obed Zhang M.D.
[2023-01-24] MEDS: VANCOMYCIN 1.5 GM in NA CHLORIDE 0.9% 500 ML IVPB SCH (18:05)
--- NOTE | 2023-01-24 18:45 | PN ---
Date of Progress Note: 01/24/2023 Mr. Street is being followed for CAD, CHF, COPD, cellulitis. Last echocardiogram showed improvement with an ejection fraction of at least 50%. We have been following him for atrial fibrillation. He i s on IV amiodarone. Heart rate is still in the 90s. No cardiac complaints. No symptoms. I would s uggest adding a low-dose of metoprolol 25 mg b.i.d. Continue present regimen. Continue antibiotics. Continue to follow up on cellulitis. We will continue to follow him for now. [place]/CLAUDY Voice ID: [id number] Report ID: [id number]
[2023-01-24] MEDS: CEFEPIME 1 GM in NA CHLORIDE 0.9% 100 ML IV SCH (21:19)
[2023-01-25 05:27] LABS: Hematocrit 32.8 % (39.6-49.0)
[2023-01-25 05:43] LABS: Magnesium 2.3 mg/dL (1.6-2.4); Potassium 3.8 mEq/L (3.5-5.1)
[2023-01-25] MEDS: AMIODARONE HCL 900 MG in Dextrose 5%-Water 482 ML IV SCH (05:52)
[2023-01-25] MEDS: FUROSEMIDE 20 MG TABLET PO SCH ×2 (07:25→18:38)
[2023-01-25] MEDS: AMIODARONE HCL 200 MG TAB PO SCH ×2 (07:25→20:00)
[2023-01-25] MEDS: MONTELUKAST 10 MG TAB PO SCH (07:26)
[2023-01-25] MEDS: DIGOXIN 0.25 MG TABLET PO SCH (07:26)
[2023-01-25] MEDS: ENOXAPARIN 80 MG/0.8 ML SQ SCH ×2 (07:27→20:00)
[2023-01-25] MEDS: CETIRIZINE HCL 5 MG TABLET PO PRN (07:40)
--- NOTE | 2023-01-25 08:34 | P.PN ---
Date of Service: 01/25/23 Chief Complaint: Septic shock Subjective: No new changes, Improving Patient is in bed, awake and oriented x3. On 2L NC, SpO2 100%. Off amiodarone drip. Reports back pain from laying in bed, otherwise no other complaints at this time. Bilateral lower leg wounds/cellulitis improving. No acute events reported overnight. Physical Examination - Vital Signs Temp Pulse Resp BP Pulse Ox 97.2 F 73 16 134/94 H 100 01/25/23 04:00 01/25/23 07:25 01/25/23 06:00 01/25/23 07:25 01/25/23 06:00 - Physical Exam General: Alert, In no apparent distress, Oriented x3 HEENT: Atraumatic, Normocephalic Neck: Supple, JVD not distended Respiratory: Diminished; on 2L NC Cardiovascular: No edema, atrial fibrillation Gastrointestinal: Normal bowel sounds, Soft and benign, Non-distended Musculoskeletal: No clubbing, No swelling Integumentary: LLE with erythema,open blister posterior aspect, improving; RLE superficial wounds improving. Neurological: Normal speech, Normal tone, Normal affect - Studies Laboratory Data - reviewed Microbiology Data - reviewed Imagings Data: - reviewed Medications List Reviewed: Yes Assessment And Plan - Plan Problem List - Acute kidney injury - Cellulitis, bilateral lower leg - Congestive Heart Failure - COPD - Coronary Artery Disease - Atrial Fibrillation - Septic Shock Cellulitis / Septic shock - CT lower extremity: "IMPRESSION: Moderate subcutaneous edematous changes of the lower leg and foot as above. No soft tissue gas. No appreciable fluid collections within limits of noncontrast evaluation." - Right lower leg: abrasions anterior lower leg, erythema; improving - Left lower leg: edema, erythema, weeping wounds on posterior aspect; improving - 01/21 Blood Cultures: no growth to date - No leukocytosis; afebrile - Currently on IV cefepime (01/21-) and IV vancomycin (01/21-) Recommendations -- Cellulitis: Continue IV Cefepime and IV Vancomycin (started 01/21) for now - Upon discharge, switch to PO Doxycycline and PO Rifampin - Continue current wound care: apply mupirocin to BLE and wrap with kerlix, then sofi bandage. Keep legs elevated. ID will continue to follow and monitor for infection. Case discussed with Dr. Wright, N
[2023-01-25] MEDS: MUPIROCIN 2% OINT 22GM TUBE TOP SCH (10:30)
--- NOTE | 2023-01-25 10:37 | PN ---
Date of Progress Note: 01/25/[address] has multiple medical problems including chronic systolic congestive heart failure, recurre nt atrial fibrillation. Has been on IV amiodarone for about 3 days and continues to be in AFib at a rate of 100. I recommended we add digoxin 0.25 mg daily p.o., patient to p.o. 400 mg 1 b.i.d. on the amiodarone. I doubt any form of therapy would be beneficial to Mr. Street from an atrial fibrillati on standpoint except for maybe an ablation down the road, and I will make an arrangement for that as an outpatient. For now, we will continue to follow him as needed. [place]/CLAUDY Voice ID: [id number] Report ID: [id number]
[2023-01-25] MEDS: ACETAMINOPHEN 500 MG TAB PO PRN (11:15)
[2023-01-25] MEDS ORDERED: POTASSIUM CL SA 10 MEQ TAB PO ONE (11:41)
--- NOTE | 2023-01-25 19:47 | P.PN ---
Subjective Date of Service: 01/25/23 Chief Complaint: Septic shock No acute events overnight. He appears well this morning, but he remains in atrial fibrillation. His heart rates are acceptable at rest, but quickly accelerate with minimal activity. He denies any chest pain, palpitations, or shortness of breath. Review of Systems 10-point ROS is otherwise unremarkable Integumentary: Rash (lower extremities) Physical Examination - Vital Signs Temperature: 97.1 F Blood Pressure: 118/61 Pulse: 107 Respirations: 14 Pulse Ox (%): 97 - Studies Medications List Reviewed: Yes Assessment And Plan - Plan - Physical Exam General: Alert, In no apparent distress, Oriented x3 HEENT: Atraumatic, Mucous membr. moist/pink, Sclerae nonicteric Neck: JVD not distended Respiratory: Clear to auscultation bilaterally, Normal air movement Cardiovascular: No edema, No murmurs, Irregular heart rate/rhythm Gastrointestinal: Soft, Non-distended, No tenderness, Musculoskeletal: No clubbing Integumentary: Other (improvement in erythema/cellulitis of right lower extremity with serosanguinous drainage) Neurological: Normal speech, Normal affect # Septic Shock likely secondary to Bilateral Lower Extremity Cellulitis - improved He met sepsis criteria based on HR > 90 bpm, RR > 20 breaths/min, and WBC > 12,000, and the suspected source is cellulitis. Severe sepsis was suspected due to concern for tissue hypoperfusion/organ dysfunction based on hypotension (SBP < 90, MAP < 65), creatinine >2.0 mg/dL (without ESRD), coagulopathy (INR > 1.5), and lactic acid > 2 mmol/L. Septic shock is suspected due to SBP < 90 mmHg , MAP <65. - Infectious Diseases was consulted and spoke with SALLY Hassan - recommendations appreciated - General Surgery consulted and spoke with Dr. Freeman - recommendations appreciated - Sepsis order set was initiated - Lactate trend: 2.6 -> 1.6 -> 1.5 - Blood cultures drawn before antibiotics were given - Broad spectrum antibiotics started: Vancomycin + Cefepime - In regards to fluids: - 30 mL/kg of IV fluids was given based on his actual body weight - Norepinephrine was started due to persistent hypotension - which has since been weaned off - Left CT lower extremity = "pronounced subcutaneous edematous changes of the left lower leg and foot as above, most compatible with cellulitis. No soft tissue gas. No appreciable fluid collections within limits of noncontrast evaluation." - Right CT lower extremity = "moderate subcutaneous edematous changes of the lower leg and foot as above. No soft tissue gas. No appreciable fluid collections within limits of noncontrast evaluation." - Bilateral lower extremity Doppler = "no sonographic evidence of left or right lower extremity deep venous thrombosis." # Paroxysmal Atrial Fibrillation with Rapid Ventricular Response # Coronary Artery Disease s/p PCI # Peripheral Artery Disease s/p Femoral-Popliteal Stent His [id number] = 5 (CHF=1, Age>75=2, DM=1, CAD=1), which warrants anticoagulation. - Cardiology consulted and spoke with Dr. Torres - recommendations appreciated - Recommended discontinuing amiodarone drip - Recommended amiodarone 400 mg BID x 7 days, followed by 200 mg daily - Recommended digoxin 250 mcg daily - Planning for cardiac ablation as an outpatient - Switched home rivaroxaban to enoxaparin while hospitalized # KDIGO Stage II Acute Kidney Injury likely due to Septic Shock - improved - Nephrology consulted - recommendations appreciated - Creatinine = 3.69 -> 3.49 -> 2.66 -> 1.44 -> 1.42 -> 1.32 - Urinalysis = 11-20 RBCs, 1+ glucose, trace protein - Monitor creatinine and urine output - If worsening, obtain renal ultrasound - Renally dose medications # 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 Findings may relate to a mild infectious or inflammatory process. Ectasia of the ascending thoracic aorta, measuring 4.2 centimeter in caliber. No acute abnormality in the abdomen and pelvis. Incidentally noted nonobstructing smaller right renal calculi. Other incidental findings as above." - Follow-up with PCP for further evaluation # Chronic Compensated Diastolic Congestive Heart Failure - No evidence of acute CHF exacerbation - Transthoracic echocardiogram = "1. very poor study (poor windows) 2. overall, left ventricular ejection fraction appears normal" # Chronic Obstructive Pulmonary Disease - No evidence of acute COPD exacerbation Obed Zhang M.D.
[2023-01-25] MEDS: CEFEPIME 1 GM in NA CHLORIDE 0.9% 100 ML IV SCH (20:01)
--- NOTE | 2023-01-25 21:06 | P.PN ---
Date of Service: 01/25/23 Vital Signs Temp Pulse Resp BP Pulse Ox 97.1 F 107 H 14 118/61 97 01/25/23 19:50 01/25/23 19:50 01/25/23 19:50 01/25/23 19:50 01/25/23 19:50 Medications Acetaminophen (Acetaminophen 500 Mg Tab) 500 mg PO Q4HP PRN PRN Reason: pain/fever Last Admin: 01/25/23 11:15 Dose: 500 mg Amiodarone HCl (Amiodarone Hcl 200 Mg Tab) 400 mg PO BID [facility] Stop: 02/01/23 09:01 Last Admin: 01/25/23 20:00 Dose: 400 mg Amiodarone HCl (Amiodarone Hcl 200 Mg Tab) 200 mg PO DAILY [facility] Cetirizine HCl (Cetirizine Hcl 5 Mg Tablet) 10 mg PO DAILY PRN PRN Reason: ALLERGIES Last Admin: 01/25/23 07:40 Dose: 10 mg Digoxin (Digoxin 0.25 Mg Tablet) 0.25 mg PO DAILY [facility] Last Admin: 01/25/23 07:26 Dose: 0.25 mg Enoxaparin Sodium (Enoxaparin 80 Mg/0.8 Ml) 80 mg SQ Q12HR [facility] Last Admin: 01/25/23 20:00 Dose: 80 mg Fentanyl Citrate (Fentanyl Citr 100 Mcg/2 Ml) 25 mcg IV Q4H PRN PRN Reason: Pain scale 8-10 (Severe) Last Admin: 01/24/23 11:36 Dose: 25 mcg Fluticasone Propionate (Fluticasone 50mcg Nasal [place]) 1 sprays DORETHA BID PRN PRN Reason: ALLERGIES Furosemide (Furosemide 20 Mg Tablet) 20 mg PO BIDL [facility] Last Admin: 01/25/23 18:38 Dose: 20 mg Cefepime HCl 1 gm/ Sodium (Chloride) 100 mls @ 200 mls/hr IV Q24H [facility]; Protocol Last Admin: 01/25/23 20:01 Dose: 100 mls Vancomycin HCl 1.5 gm/ Sodium (Chloride) 500 mls @ 250 mls/hr IVPB Q36H [facility] Last Admin: 01/24/23 18:05 Dose: 500 mls Norepinephrine/Dextrose (Levophed 4 Mg/250 Ml-D5w) 4 mg in 250 mls @ 38.273 mls/hr IV TITR [facility]; Protocol Montelukast Sodium (Montelukast 10 Mg Tab) 10 mg PO DAILY [facility] Last Admin: 01/25/23 07:26 Dose: 10 mg Mupirocin (Mupirocin 2% Oint 22gm Tube) 1 appl TOP DAILY [facility] Last Admin: 01/25/23 10:30 Dose: 1 appl Ondansetron HCl (Ondansetron 4 Mg/2 Ml Vial) 4 mg IV Q4H PRN PRN Reason: NAUSEA / VOMITING Sodium Chloride (Flush Normal Saline 10 Ml) 10 ml IV BID [facility] Last Admin: 01/25/23 20:01 Dose: 10 ml Microbiology Results 01/21/23 12:48 Blood - Blood Aerobic Blood Culture - Preliminary No growth in 24 hours. 01/21/23 12:48 Blood - Blood Anaerobic Blood Culture - Preliminary No growth in 24 hours. 01/21/23 12:00 Blood - Blood Aerobic Blood Culture - Preliminary No growth in 24 hours. 01/21/23 12:00 Blood - Blood Anaerobic Blood Culture - Preliminary No growth in 24 hours. Assessment/ Plan: Nephrology No dyspnea No chest pain Poor oral intake No acute events overnight Vitals, medications, blood work and imaging reviewed in the chart. NAD. NCAT. MMM. Neck supple. Normal respiratory effort. RRR. Abd ND. No C/C. Hip & LE Edema trace. LE wounds. AAO. Normal speech. LEFT VENTRICULAR WALL MOTION: UNABLE TO EVALUATE DUE TO POOR WINDOWS DOPPLER/COLOR FLOW: MILD TRICUSPID REGURGITATION COMMENTS: 1. VERY POOR STUDY (POOR WINDOWS) 2. OVERALL, LEFT VENTRICULAR EJECTION FRACTION APPEARS NORMAL EXAM DESCRIPTION: CT - Chest Abd Pelvis Wo Con - 01/21/2023 2:07 pm CLINICAL HISTORY: weakness. Shortness of breath. Hypotension COMPARISON: Chest Single View dated 01/21/2023 TECHNIQUE: Noncontrast thin axial CT images of the chest, abdomen, and pelvis were performed. Multiplanar reformats were generated and reviewed. All CT scans are performed using dose optimization technique as appropriate and may include automated exposure control or mA/KV adjustment according to patient size. FINDINGS: The lungs show no focal consolidation. Bibasilar platelike atelectasis. Scattered peripheral predominantly ground-glass small nodules and tree-in-bud opacities, the largest in the upper segment right lower lobe, series 201, image 34, and in the anterior left upper lobe, image 32.No pleural or pericardial effusion.No intrathoracic adenopathy. Ectasia of the ascending thoracic aorta measuring 4.2 centimeter in caliber. The liver, spleen, pancreas, and adrenal glands are within normal limits. No hydroureteronephrosis. Right mid and lower pole punctate radiodensities, the largest measuring 4 millimeter at the right midpole. 2.2 centimeter right lower lobe cystic lesion. No bowel obstruction, free air, free fluid or abscess. Normal appendix. No pathologic lymphadenopathy in the abdomen or pelvis. Urinary bladder is decompressed with Barajas catheter in place. No worrisome osseous finding. Lobulated densities in the right shoulder periarticular region, could relate to osteochondromatosis. IMPRESSION: Scattered peripheral micro nodules and tree-in-bud opacities as above. Findings may relate to a mild infectious or inflammatory process. Ectasia of the ascending thoracic aorta, measuring 4.2 centimeter in caliber No acute abnormality in the abdomen and pelvis. Stage II SANCHEZ CKD III with proteinuria -No NSAIDs HTN with CKD/ CHF complicated by hypotension -Levophed prn Diastolic CHF, chronic -Daily weight -Low sodium diet DM II with CKD -Recommend RISS Anemia in chronic illness -Monitor H&H Septic Shock BL LE Cellulitis -Continue abx
[2023-01-26 05:40] LABS: Potassium 3.5 mEq/L (3.5-5.1)
[2023-01-26] MEDS ORDERED: POTASSIUM CL SA 10 MEQ TAB PO ONE (06:29)
[2023-01-26] MEDS: VANCOMYCIN 1.5 GM in NA CHLORIDE 0.9% 500 ML IVPB SCH (06:33)
[2023-01-26] MEDS: FENTANYL CITR 100 MCG/2 ML IV PRN ×4 (06:33→20:56)
[2023-01-26] MEDS: FUROSEMIDE 20 MG TABLET PO SCH ×2 (08:08→16:27)
[2023-01-26] MEDS: MONTELUKAST 10 MG TAB PO SCH (08:08)
[2023-01-26] MEDS: ENOXAPARIN 80 MG/0.8 ML SQ SCH ×2 (08:08→20:49)
[2023-01-26] MEDS: DIGOXIN 0.25 MG TABLET PO SCH (08:09)
[2023-01-26] MEDS: AMIODARONE HCL 200 MG TAB PO SCH ×2 (08:11→20:49)
--- NOTE | 2023-01-26 08:56 | P.PN ---
Date of Service: 01/26/23 Chief Complaint: Septic shock Subjective: No new changes, Improving Patient is resting comfortably in bed, awake and oriented x3. On 2L NC, SpO2 100%. No complaints at this time. Denies any nausea, vomiting, diarrhea or abdominal pain. Denies any chest pain or palpitations. Denies any rashes or itching. Bilateral lower leg wounds/cellulitis continues to improve. Physical Examination - Vital Signs Temp Pulse Resp BP Pulse Ox 97.2 F 100 H 15 117/73 100 01/26/23 08:00 01/26/23 08:08 01/26/23 08:00 01/26/23 08:08 01/26/23 08:00 - Physical Exam General: Alert, In no apparent distress, Oriented x3 HEENT: Atraumatic, Normocephalic Neck: Supple, JVD not distended Respiratory: Diminished; on 2L NC Cardiovascular: No edema, atrial fibrillation Gastrointestinal: Normal bowel sounds, Soft and benign, Non-distended Musculoskeletal: No clubbing, No swelling Integumentary: BLE dressing clean, dry and intact. Neurological: Normal speech, Normal tone, Normal affect - Studies Laboratory Data - reviewed Microbiology Data -Blood Cultures 01/21: No growth Imagings Data: - CT lower extremity 01/21: "Moderate subcutaneous edematous changes of the lower leg and foot as above. No soft tissue gas. No appreciable fluid collections within limits of noncontrast evaluation." - Venous ultrasound BLE 01/22: "No sonographic evidence of left or right lower extremity deep venous thrombosis." Medications List Reviewed: Yes Assessment And Plan Problem List - Acute kidney injury - Cellulitis, bilateral lower leg - Congestive Heart Failure - COPD - Coronary Artery Disease - Atrial Fibrillation - Septic Shock Cellulitis / Septic shock - Right lower leg: abrasions anterior lower leg, erythema; improving - Left lower leg: edema, erythema, weeping wounds on posterior aspect; improving - No leukocytosis; afebrile - Currently on IV cefepime (01/21-) and IV vancomycin (01/21-) Recommendations -- Cellulitis: Continue IV Cefepime and IV Vancomycin (started 01/21) - Upon discharge, consider PO Doxycycline and PO Rifampin - Continue current wound care: apply mupirocin to BLE and wrap with kerlix, then sofi bandage. Keep legs elevated. ID will continue to follow and monitor for infection. Case discussed with Dr. Wright N
[2023-01-26] MEDS: ACETAMINOPHEN 500 MG TAB PO PRN ×2 (08:59→20:49)
[2023-01-26] MEDS: MUPIROCIN 2% OINT 22GM TUBE TOP SCH (09:00)
[2023-01-26] MEDS ORDERED: ENSURE MAX PROTEIN 330 ML LIQUID PO PRN (11:11)
--- NOTE | 2023-01-26 18:01 | P.PN ---
Subjective Date of Service: 01/26/23 Chief Complaint: Septic shock No acute events overnight. He remains in atrial fibrillation, with heart rates ranging between 80s-120s. He is asymptomatic at this time. Reviewed with Dr. Torres, who recommends continuing current plan of care and monitoring heart rate. He feels that Mr. Street will require a cardiac ablation in the near future. He denies any chest pain, palpitations, or shortness of breath. Review of Systems 10-point ROS is otherwise unremarkable Integumentary: Rash (lower extremity cellulitis) Physical Examination - Vital Signs Temperature: 98.1 F Blood Pressure: 117/65 Pulse: 116 Respirations: 18 Pulse Ox (%): 96 - Studies Microbiology Data (last 24 hrs): 01/21/23 12:48 Blood - Blood Aerobic Blood Culture - Final No growth in 5 days. 01/21/23 12:48 Blood - Blood Anaerobic Blood Culture - Final No growth in 5 days. 01/21/23 12:00 Blood - Blood Aerobic Blood Culture - Final No growth in 5 days. 01/21/23 12:00 Blood - Blood Anaerobic Blood Culture - Final No growth in 5 days. Medications List Reviewed: Yes Assessment And Plan - Plan - Physical Exam General: Alert, In no apparent distress, Oriented x3 HEENT: Atraumatic, Mucous membr. moist/pink, Sclerae nonicteric Neck: JVD not distended Respiratory: Clear to auscultation bilaterally, Normal air movement Cardiovascular: No edema, No murmurs, Irregular heart rate/rhythm Gastrointestinal: Soft, Non-distended, No tenderness, Musculoskeletal: No clubbing Integumentary: Other (lower extremities covered in clean surgical dressing/ALEX wrap) Neurological: Normal speech, Normal affect # Septic Shock likely secondary to Bilateral Lower Extremity Cellulitis - improved He met sepsis criteria based on HR > 90 bpm, RR > 20 breaths/min, and WBC > 12,000, and the suspected source is cellulitis. Severe sepsis was suspected due to concern for tissue hypoperfusion/organ dysfunction based on hypotension (SBP < 90, MAP < 65), creatinine >2.0 mg/dL (without ESRD), coagulopathy (INR > 1.5), and lactic acid > 2 mmol/L. Septic shock is suspected due to SBP < 90 mmHg , MAP <65. - Infectious Diseases was consulted and spoke with SALLY Hassan - recommendations appreciated - General Surgery consulted and spoke with Dr. Freeman - recommendations appreciated - Sepsis order set was initiated - Lactate trend: 2.6 -> 1.6 -> 1.5 - Blood cultures drawn before antibiotics were given - Broad spectrum antibiotics started: Vancomycin + Cefepime - In regards to fluids: - 30 mL/kg of IV fluids was given based on his actual body weight - Norepinephrine was started due to persistent hypotension - which has since been weaned off - Left CT lower extremity = "pronounced subcutaneous edematous changes of the left lower leg and foot as above, most compatible with cellulitis. No soft tissue gas. No appreciable fluid collections within limits of noncontrast evaluation." - Right CT lower extremity = "moderate subcutaneous edematous changes of the lower leg and foot as above. No soft tissue gas. No appreciable fluid collections within limits of noncontrast evaluation." - Bilateral lower extremity Doppler = "no sonographic evidence of left or right lower extremity deep venous thrombosis." # Paroxysmal Atrial Fibrillation with Rapid Ventricular Response # Coronary Artery Disease s/p PCI # Peripheral Artery Disease s/p Femoral-Popliteal Stent His [id number] = 5 (CHF=1, Age>75=2, DM=1, CAD=1), which warrants anticoagulation. - Cardiology consulted and spoke with Dr. Torres - recommendations appreciated - Recommended amiodarone 400 mg BID x 7 days (today is day 2 of 7), followed by 200 mg daily - Recommended digoxin 250 mcg daily - Planning for cardiac ablation as an outpatient - Switched home rivaroxaban to enoxaparin while hospitalized # KDIGO Stage II Acute Kidney Injury likely due to Septic Shock - improved - Nephrology consulted - recommendations appreciated - Creatinine = 3.69 -> 3.49 -> 2.66 -> 1.44 -> 1.42 -> 1.32 -> 1.47 - Urinalysis = 11-20 RBCs, 1+ glucose, trace protein - Monitor creatinine and urine output - If worsening, obtain renal ultrasound - Renally dose medications # 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 Findings may relate to a mild infectious or inflammatory process. Ectasia of the ascending thoracic aorta, measuring 4.2 centimeter in caliber. No acute abnormality in the abdomen and pelvis. Incidentally noted nonobstructing smaller right renal calculi. Other incidental findings as above." - Follow-up with PCP for further evaluation # Chronic Compensated Diastolic Congestive Heart Failure - No evidence of acute CHF exacerbation - Transthoracic echocardiogram = "1. very poor study (poor windows) 2. overall, left ventricular ejection fraction appears normal" # Chronic Obstructive Pulmonary Disease - No evidence of acute COPD exacerbation Obed Zhang M.D.
[2023-01-26] MEDS: CEFEPIME 2 GM in NA CHLORIDE 0.9% 100 ML IV SCH (20:48)
--- NOTE | 2023-01-26 22:43 | PN ---
Date of Progress Note: 01/26/2023 He is having chronic systolic congestive heart failure and recurrent atrial fibrillation. He is here for cellulitis. We have switched him to p.o. amiodarone 400 b.i.d. Added digoxin to his regimen. His last creatinine is 1.47. His vital signs are stable. He is improving overall. His last heart r ate is 72. Continue present regimen. We will be available for questions if the need arises. He sumi l eventually have to have an outpatient followup and I will check the status of his atrial fibrillati on as an outpatient once the cellulitis gets treated appropriately. [place]/CLAUDY Voice ID: [id number] Report ID: [id number]
[2023-01-27] MEDS: FENTANYL CITR 100 MCG/2 ML IV PRN ×2 (00:46→04:22)
[2023-01-27] MEDS: ACETAMINOPHEN 500 MG TAB PO PRN ×3 (00:46→08:42)
[2023-01-27 06:06] LABS: Potassium 3.7 mEq/L (3.5-5.1)
[2023-01-27] MEDS: MORPHINE 2 MG/ML SYR IV PRN ×2 (07:49→20:11)
[2023-01-27] MEDS: METOPROLOL TAR 25 MG TAB PO SCH ×2 (07:50→17:28)
[2023-01-27] MEDS ORDERED: POTASSIUM CL SA 10 MEQ TAB PO ONE (08:00)
[2023-01-27] MEDS: FUROSEMIDE 20 MG TABLET PO SCH ×2 (08:34→16:36)
[2023-01-27] MEDS: POTASSIUM CL SA 10 MEQ TAB PO SCH (08:34)
[2023-01-27] MEDS: MONTELUKAST 10 MG TAB PO SCH (08:34)
[2023-01-27] MEDS: AMIODARONE HCL 200 MG TAB PO SCH ×2 (08:34→20:13)
[2023-01-27] MEDS: DIGOXIN 0.25 MG TABLET PO SCH (08:34)
[2023-01-27] MEDS: CEFEPIME 2 GM in NA CHLORIDE 0.9% 100 ML IV SCH ×2 (08:34→20:11)
[2023-01-27] MEDS: ENOXAPARIN 80 MG/0.8 ML SQ SCH ×2 (08:34→20:11)
[2023-01-27] MEDS: MUPIROCIN 2% OINT 22GM TUBE TOP SCH (09:44)
[2023-01-27] MEDS ORDERED: ACETAMINOPHEN 325 MG TABLET PO PRN (14:02)
--- NOTE | 2023-01-27 17:07 | CON ---
Date of Consultation: 01/22/2023 Reason For Consultation: Cellulitis to bilateral lower extremities. Brief History Of Present Illness: The patient is an 82-year-old male who has a history of coronary a rtery disease, prior stent placement, and history of CHF with an ejection fraction of 45% who was adm itted to the hospital with cellulitis of bilateral lower extremities. He was noted to have some hypo tension and as such he was resuscitated, brought into the ICU and ultimately treated for this. I am consulted to see the patient for his cellulitis in bilateral lower extremities. The patient states i t has been present for some time. He has not really treated it at this point. Past Medical History: Diabetes, COPD, CHF, atrial fibrillation, coronary artery disease. He has cor onary artery stents. He has peripheral vascular stents. His peripheral arterial disease is well. Allergies: ADHESIVE TAPE AND CODEINE. Home Medications: Include Lipitor, Amaryl, Victoza, Lasix, Cozaar, Lopressor, Xarelto. Social History: He does have a positive tobacco use history. Drinks alcohol recreationally. Denies recreational drug use. Review of Systems: Ten-point review of systems other than HPI, denies. Physical Examination: General: At the time of my examination, he is awake, alert, oriented. Psychiatric: Appropriate, conversive. HEENT: Normocephalic. Sclerae anicteric. Mucous membranes are moist. Oropharynx clear. Neck: Supple without JVD. Chest: Expansion and excursion. Cardiovascular: Regular rate and rhythm. Extremities: Focused examination of bilateral lower extremities, he has cellulitis to bilateral feet extending up to below the knees bilaterally, right worse than the left. There is some excoriation o f the skin and some seepage of serous fluid. No drainable collections appreciated. He does have chani ma in bilateral lower extremities as well. Laboratory Data: He had a laboratory exam, which revealed a white blood cell count of 13.7, hemoglob in 12.2, hematocrit of 36.6, platelet count was 350, neutrophils were 91%. PT 34.6, INR 3.15, PTT 32 .5. Sodium 132, potassium 4.2, chloride 199, carbon dioxide 22, BUN 76, creatinine 3.4, glucose was 220. Lactic acid 1.6. He had some imaging performed which included a CT of the right lower extremit y which was officially read as no drainable fluid collections. There was some pronounced subcutaneou s edema changes in the left lower leg and foot as above, most compatible with cellulitis. No soft ti ssue gas. No fluid collections appreciated on the left as well. Extremity venous study was performe d as well which was officially read as no sonographic evidence of left to right lower extremity DVT. Assessment And Plan: This is an 82-year-old male who comes in with multiple medical problems and andrew lulitis of bilateral extremities: 1.Continue IV fluid hydration. 2.Antibiotic coverage. 3.I recommend placement of mupirocin cream, wraps, and elevation of bilateral extremities and keepin g cooling pad on the area as well. Continue to monitor perfusion. Continue medical management as de scribed. I will follow along with you. Thank you for this interesting consultation. YULIANA/CLAUDY Voice ID: [id number] Report ID: [id number]
--- NOTE | 2023-01-27 17:14 | P.PN ---
(S) Pt moved out of the ICU, vitals and renal function remains stable, no acute events (O) Vitals reviewed in the EMR General: Alert, Cooperative HEENT: Atraumatic, Normocephalic, Other (LFNC) Neck: Supple Respiratory: Other (b/l air entry, reduced at bases) Cardiovascular: Other (RRR mostly) Gastrointestinal: Soft and benign, Non-distended, No tenderness Musculoskeletal: Swelling, Erythema improved of the LE Integumentary: Skin breakdown, Skin lesion -see description elsewhere Neurological: Normal speech, awake, alert. Normal tone, Normal affect Laboratory Data (last 24 hrs) Reviewed in the EMR Conclusions/Impression: A/P) 1. Stage II SANCHEZ on possible underlying CKD NOS in the setting of hypotension, recent ARB use, intravascular volume depletion with chronic diuretic use, other -resolving wih Cr level downward trending nicely with normalization of BP and with IVF hydration. IVF stopped early on. 2. Would cont to hold ARB agent at this time as BP remains soft. 3. CT imaging of chest on admission showed no sig pulm congestion and no pleural effusions. Echo was poor quality but no sig LVEF impairment noted. Pt was taking a larger loop diuretic dose at home, did at a lower dose of 20 mg BID 4. Abx for LE cellulitis per the primary team, Abx doses can be adjusted since CrCl has improved. Edema was likely multifactorial, as cellulitis improves, eval for compression therapy/other if pt does not have severe PAD 5. Abnormal diagnostic imaging of the Rt kidney. Punctuate renal calculi and report of a small renal cystic lesion. UA did show some microscopic hematuria. Can eval further as OP with an u/s Umair Bernardo MD, VALERY
[2023-01-27] MEDS: VANCOMYCIN 1.5 GM in NA CHLORIDE 0.9% 500 ML IVPB SCH (18:10)
--- NOTE | 2023-01-27 19:38 | P.PN ---
Subjective Date of Service: 01/27/23 Chief Complaint: Septic shock No acute events overnight. He remains in atrial fibrillation, but his heart rates seems to be gradually improving. I spoke with Dr. Torres, who recommended adding metoprolol at this time since his blood pressure has improved. If his heart rate continues to improve, will downgrade out of ICU today. He denies any chest pain, palpitations, or shortness of breath. Review of Systems 10-point ROS is otherwise unremarkable Musculoskeletal: Leg Pain Physical Examination - Vital Signs Temperature: 97.0 F Blood Pressure: 122/67 Pulse: 86 Respirations: 14 Pulse Ox (%): 97 - Studies Medications List Reviewed: Yes Assessment And Plan - Plan - Physical Exam General: Alert, In no apparent distress, Oriented x3 HEENT: Atraumatic, Sclerae nonicteric Neck: JVD not distended Respiratory: Clear to auscultation bilaterally, Normal air movement Cardiovascular: No edema, No murmurs, Irregular heart rate/rhythm Gastrointestinal: Soft, Non-distended, No tenderness Musculoskeletal: No clubbing Integumentary: Other (lower extremities covered in clean surgical dressing/ALEX wrap) Neurological: Normal speech, Normal affect # Septic Shock likely secondary to Bilateral Lower Extremity Cellulitis - improved He met sepsis criteria based on HR > 90 bpm, RR > 20 breaths/min, and WBC > 12,000, and the suspected source is cellulitis. Severe sepsis was suspected due to concern for tissue hypoperfusion/organ dysfunction based on hypotension (SBP < 90, MAP < 65), creatinine >2.0 mg/dL (without ESRD), coagulopathy (INR > 1.5), and lactic acid > 2 mmol/L. Septic shock is suspected due to SBP < 90 mmHg , MAP <65. - Infectious Diseases was consulted and spoke with SALLY Hassan - recommendations a ppreciated - General Surgery consulted and spoke with Dr. Freeman - recommendations appreciated - Sepsis order set was initiated - Lactate trend: 2.6 -> 1.6 -> 1.5 - Blood cultures drawn before antibiotics were given - Broad spectrum antibiotics started: Vancomycin + Cefepime - In regards to fluids: - 30 mL/kg of IV fluids was given based on his actual body weight - Norepinephrine was started due to persistent hypotension - which has since been weaned off - Left CT lower extremity = "pronounced subcutaneous edematous changes of the left lower leg and foot as above, most compatible with cellulitis. No soft tissue gas. No appreciable fluid collections within limits of noncontrast evaluation." - Right CT lower extremity = "moderate subcutaneous edematous changes of the lower leg and foot as above. No soft tissue gas. No appreciable fluid collections within limits of noncontrast evaluation." - Bilateral lower extremity Doppler = "no sonographic evidence of left or right lower extremity deep venous thrombosis." # Paroxysmal Atrial Fibrillation with Rapid Ventricular Response # Coronary Artery Disease s/p PCI # Peripheral Artery Disease s/p Femoral-Popliteal Stent His [id number] = 5 (CHF=1, Age>75=2, DM=1, CAD=1), which warrants anticoagulation. - Cardiology consulted and spoke with Dr. Torres - recommendations appreciated - Recommended amiodarone 400 mg BID x 7 days (today is day 3 of 7), followed by 200 mg daily - Recommended digoxin 250 mcg daily - Recommended metoprol tartrate 25 mg daily - Planning for cardiac ablation as an outpatient - Switched home rivaroxaban to enoxaparin while hospitalized # KDIGO Stage II Acute Kidney Injury likely due to Septic Shock - improved - Nephrology consulted - recommendations appreciated - Creatinine = 3.69 -> 3.49 -> 2.66 -> 1.44 -> 1.42 -> 1.32 -> 1.47 -> 1.24 - Urinalysis = 11-20 RBCs, 1+ glucose, trace protein - Monitor creatinine and urine output - If worsening, obtain renal ultrasound - Renally dose medications # 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 Findings may relate to a mild infectious or inflammatory process. Ectasia of the ascending thoracic aorta, measuring 4.2 centimeter in caliber. No acute abnormality in the abdomen and pelvis. Incidentally noted nonobstructing smaller right renal calculi. Other incidental findings as above." - Follow-up with PCP for further evaluation # Chronic Compensated Diastolic Congestive Heart Failure - No evidence of acute CHF exacerbation - Transthoracic echocardiogram = "1. very poor study (poor windows) 2. overall, left ventricular ejection fraction appears normal" # Chronic Obstructive Pulmonary Disease - No evidence of acute COPD exacerbation Obed Zhang M.D.
[2023-01-28] MEDS: MORPHINE 2 MG/ML SYR IV PRN ×5 (00:40→23:45)
[2023-01-28 05:00] LABS: Magnesium 2.1 mg/dL (1.6-2.4); Phosphorus 1.9 mg/dL (2.5-4.9); Potassium 3.7 mEq/L (3.5-5.1)
[2023-01-28] MEDS: METOPROLOL TAR 25 MG TAB PO SCH ×2 (06:28→17:15)
[2023-01-28] MEDS: FUROSEMIDE 20 MG TABLET PO SCH ×2 (08:16→17:14)
[2023-01-28] MEDS: ENOXAPARIN 80 MG/0.8 ML SQ SCH ×2 (08:16→20:47)
[2023-01-28] MEDS: CEFEPIME 2 GM in NA CHLORIDE 0.9% 100 ML IV SCH (08:16)
[2023-01-28] MEDS: POTASSIUM CL SA 10 MEQ TAB PO SCH (08:17)
[2023-01-28] MEDS: AMIODARONE HCL 200 MG TAB PO SCH ×2 (08:17→20:46)
[2023-01-28] MEDS: MONTELUKAST 10 MG TAB PO SCH (08:18)
[2023-01-28] MEDS: DIGOXIN 0.25 MG TABLET PO SCH (08:18)
[2023-01-28] MEDS: POTASS/SODIUM PHOSPHATE 1 PKT POWD.PACK PO SCH ×3 (08:20→11:07)
[2023-01-28] MEDS: MUPIROCIN 2% OINT 22GM TUBE TOP SCH (08:23)
--- NOTE | 2023-01-28 09:23 | P.PN ---
Subjective Date of Service: 01/23/23 Chief Complaint: Septic shock Subjective: Improving (no new issues related to bilateral lower extremities, continues to improve) Physical Examination - Vital Signs Temperature: 98.6 F Blood Pressure: 145/63 Pulse: 85 Respirations: 16 Pulse Ox (%): 94 - Physical Exam General: Alert, In no apparent distress, Cooperative Integumentary: Other (bilateral lower extremities cellulitis improving, less swelling, minimal serous drainage) - Studies Medications List Reviewed: Yes Assessment And Plan - Current Problems (Diagnosis) (1) Bilateral lower leg cellulitis Current Visit: Yes Status: Acute Plan: 82 year old man with bilateral lower extremity cellulitis - continue antibiotic coverage, - continue serial exams - muporicin cream to bilateral lower extremities, wrap and elevate
--- NOTE | 2023-01-28 09:24 | P.PN ---
Subjective Date of Service: 01/24/23 Chief Complaint: Septic shock Subjective: Improving Physical Examination - Vital Signs Temperature: 98.6 F Blood Pressure: 145/63 Pulse: 85 Respirations: 16 Pulse Ox (%): 94 - Physical Exam General: Alert, In no apparent distress, Cooperative Integumentary: Other (bilateral lower extremities cellulitis improving, less swelling, minimal serous drainage) - Studies Medications List Reviewed: Yes Assessment And Plan - Current Problems (Diagnosis) (1) Bilateral lower leg cellulitis Current Visit: Yes Status: Acute Plan: 82 year old man with bilateral lower extremity cellulitis - continue antibiotic coverage, - continue serial exams - muporicin cream to bilateral lower extremities, wrap and elevate
--- NOTE | 2023-01-28 09:25 | P.PN ---
Subjective Date of Service: 01/25/23 Chief Complaint: Septic shock Subjective: Improving Physical Examination - Vital Signs Temperature: 98.6 F Blood Pressure: 145/63 Pulse: 85 Respirations: 16 Pulse Ox (%): 94 - Physical Exam General: Alert, In no apparent distress, Cooperative Integumentary: Other (bilateral lower extremities cellulitis improving, less swelling, minimal serous drainage) - Studies Medications List Reviewed: Yes Assessment And Plan - Current Problems (Diagnosis) (1) Bilateral lower leg cellulitis Current Visit: Yes Status: Acute Plan: 82 year old man with bilateral lower extremity cellulitis - continue antibiotic coverage, - continue serial exams - muporicin cream to bilateral lower extremities, wrap and elevate
--- NOTE | 2023-01-28 09:25 | P.PN ---
Subjective Date of Service: 01/26/23 Chief Complaint: Septic shock Subjective: Improving Physical Examination - Vital Signs Temperature: 98.6 F Blood Pressure: 145/63 Pulse: 85 Respirations: 16 Pulse Ox (%): 94 - Physical Exam General: Alert, In no apparent distress, Cooperative Integumentary: Other (bilateral lower extremities cellulitis almost resolved, less swelling, minimal serous drainage) - Studies Medications List Reviewed: Yes Assessment And Plan - Current Problems (Diagnosis) (1) Bilateral lower leg cellulitis Current Visit: Yes Status: Acute Plan: 82 year old man with bilateral lower extremity cellulitis - continue antibiotic coverage, - continue serial exams - muporicin cream to bilateral lower extremities, wrap and elevate - will sign off for now, call back with any issues
[2023-01-28 14:56] LABS: Specific Gravity 1.021 (1.005-1.030); Urine Bacteria <20 /HPF (<20); Urine Bilirubin NEGATIVE (Negative); Urine Blood 2+ (Negative); Urine Clarity Turbid (Clear); Urine Color Yellow (Yellow); Urine Glucose NEGATIVE (Negative); Urine Mucus Slight /HPF (None Seen); Urine Protein TRACE (Negative); Urine RBC 21-50 /HPF (None Seen); Urine Urobilinogen Normal (Normal); Urine pH 5.5 (5.0-7.0)
--- NOTE | 2023-01-28 16:04 | RAD REPORT ---
EXAM DESCRIPTION: RAD - Abdomen 1 View (KUB) - 01/28/2023 2:48 pm CLINICAL HISTORY: distended abdomen COMPARISON: No comparisons TECHNIQUE: Single AP view of the abdomen. FINDINGS: Diffuse bowel distention, appears to relate to small bowel with loss of haustrations. Maxi mum bowel caliber up to 8.4 centimeter. No evidence of pneumatosis or free air. No suspicious calcifi cations. No significant bony abnormality. Vascular stent along the course of the right femoral artery. IMPRESSION: Diffuse bowel distention, which may indicate underlying obstruction.
--- NOTE | 2023-01-28 17:32 | P.PN ---
Subjective Date of Service: 01/28/23 Chief Complaint: Septic shock No acute events overnight. He reports constipation and has some abdominal distention this morning. KUB was concerning for diffuse bowel distention. CT abdomen/pelvis is pending. His last BM was about 2 days ago. He denies any chest pain, palpitations, or shortness of breath. Review of Systems 10-point ROS is otherwise unremarkable Gastrointestinal: Distention, Constipation Musculoskeletal: Leg Pain Integumentary: Rash Physical Examination - Vital Signs Temperature: 97.0 F Blood Pressure: 107/58 Pulse: 78 Respirations: 16 Pulse Ox (%): 98 - Studies Medications List Reviewed: Yes Assessment And Plan - Plan - Physical Exam General: Alert, In no apparent distress, Oriented x3 HEENT: Atraumatic, Sclerae nonicteric Neck: JVD not distended Respiratory: Clear to auscultation bilaterally, Normal air movement Cardiovascular: No edema, No murmurs, Irregular heart rate/rhythm Gastrointestinal: Distended, Mild generalized tenderness Musculoskeletal: No clubbing Integumentary: Other (lower extremities covered in clean surgical dressing/ALEX wrap) Neurological: Normal speech, Normal affect # Concern for Bowel Obstruction vs possible Ileus - General Surgery consulted and spoke with Dr. Freeman - recommendations appreciated - KUB = "diffuse bowel distention, which may indicate underlying obstruction" - CT abdomen/pelvis pending - NPO - If he develops nausea/vomiting, place NG tube # Septic Shock likely secondary to Bilateral Lower Extremity Cellulitis - improved He met sepsis criteria based on HR > 90 bpm, RR > 20 breaths/min, and WBC > 12,000, and the suspected source is cellulitis. Severe sepsis was suspected due to concern for tissue hypoperfusion/organ dysfunction based on hypotension (SBP < 90, MAP < 65), creatinine >2.0 mg/dL (without ESRD), coagulopathy (INR > 1.5), and lactic acid > 2 mmol/L. Septic shock is suspected due to SBP < 90 mmHg , MAP <65. - Infectious Diseases was consulted and spoke with [employer] Sgarbi - recommendations appreciated - General Surgery consulted and spoke with Dr. Freeman - recommendations appreciated - Sepsis order set was initiated - Lactate trend: 2.6 -> 1.6 -> 1.5 - Blood cultures drawn before antibiotics were given - Broad spectrum antibiotics started: Vancomycin + Cefepime - In regards to fluids: - 30 mL/kg of IV fluids was given based on his actual body weight - Norepinephrine was started due to persistent hypotension - which has since been weaned off - Left CT lower extremity = "pronounced subcutaneous edematous changes of the left lower leg and foot as above, most compatible with cellulitis. No soft tissue gas. No appreciable fluid collections within limits of noncontrast evaluation." - Right CT lower extremity = "moderate subcutaneous edematous changes of the lower leg and foot as above. No soft tissue gas. No appreciable fluid collections within limits of noncontrast evaluation." - Bilateral lower extremity Doppler = "no sonographic evidence of left or right lower extremity deep venous thrombosis." # Paroxysmal Atrial Fibrillation with Rapid Ventricular Response # Coronary Artery Disease s/p PCI # Peripheral Artery Disease s/p Femoral-Popliteal Stent His [id number] = 5 (CHF=1, Age>75=2, DM=1, CAD=1), which warrants anticoagulation. - Cardiology consulted and spoke with Dr. Torres - recommendations appreciated - Recommended amiodarone 400 mg BID x 7 days (today is day 4 of 7), followed by 200 mg daily - Recommended digoxin 250 mcg daily - Recommended metoprol tartrate 25 mg daily - Planning for cardiac ablation as an outpatient - Switched home rivaroxaban to enoxaparin while hospitalized # KDIGO Stage II Acute Kidney Injury likely due to Septic Shock - improved - Nephrology consulted - recommendations appreciated - Creatinine = 3.69 -> 3.49 -> 2.66 -> 1.44 -> 1.42 -> 1.32 -> 1.47 -> 1.24 -> 1.33 - Urinalysis = 11-20 RBCs, 1+ glucose, trace protein - Monitor creatinine and urine output - If worsening, obtain renal ultrasound - Renally dose medications # 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 Findings may relate to a mild infectious or inflammatory process. Ectasia of the ascending thoracic aorta, measuring 4.2 centimeter in caliber. No acute abnormality in the abdomen and pelvis. Incidentally noted nonobstructing smaller right renal calculi. Other incidental findings as above." - Follow-up with PCP for further evaluation # Chronic Compensated Diastolic Congestive Heart Failure - No evidence of acute CHF exacerbation - Transthoracic echocardiogram = "1. very poor study (poor windows) 2. overall, left ventricular ejection fraction appears normal" # Chronic Obstructive Pulmonary Disease - No evidence of acute COPD exacerbation Obed Zhang M.D.
--- NOTE | 2023-01-28 18:05 | RAD REPORT ---
EXAM DESCRIPTION: CT - Abdomen Pelvis Wo Contrast - 01/28/2023 5:38 pm CLINICAL HISTORY: distended abdomen COMPARISON: Chest Abd Pelvis Wo Con dated 01/21/2023 TECHNIQUE: Thin cut axial CT imaging of the abdomen and pelvis was performed without IV contrast. Mu ltiplanar reformats were generated and reviewed. All CT scans are performed using dose optimization technique as appropriate and may include automated exposure control or mA/KV adjustment according to patient size. FINDINGS: Small bilateral layering pleural effusions with underlying subsegmental atelectasis. The liver, spleen, and pancreas show no suspicious findings. Gallbladder and biliary tree are also wi thout suspicious finding. Symmetric renal contour, again with atrophic parenchymal changes and nonobstructing right renal calcu li. Small cyst of the right lower pole again noted. No Suspicious parenchymal findings within limits of noncontrast technique. No evidence of hydroureteronephrosis. No dilated small bowel loops or bowel wall thickening. Markedly dilated colon throughout, with sugges tion of pneumatosis along the cecum and ascending colon. Few colonic diverticula No free air or infla mmatory stranding. Mild free ascites. No hernia, mass or bulky lymphadenopathy. The urinary bladder i s without significant finding. No suspicious bony findings. IMPRESSION: Markedly dilated colon, with pneumatosis noted along the cecum and ascending colon. Find ings raise concern for colonic ischemia or severe colitis. Bilateral layering pleural effusions and mild free ascites, new since the prior exam. The findings were communicated to Obed Zhang on 01/28/2023 at 17:59 hours.
[2023-01-28 19:39] LABS: Absolute Lymphocytes (CBC) 0.6 K/uL (0.7-4.9); Hematocrit 38.5 % (39.6-49.0); Lymphocytes % 9.2 % (15.3-44.8); MCV 104.5 fL (80-100); MPV 8.2 fL (7.6-11.3); RBC Red Blood Cell Count 3.68 M/uL (4.33-5.43)
--- NOTE | 2023-01-28 23:40 | P.PN ---
Date of Service: 01/28/23 Abdominal pain improved but still present. Abd is distended, firm. Mild generalized abd tenderness no rebound or guarding.
[2023-01-29] MEDS: MORPHINE 2 MG/ML SYR IV PRN ×4 (04:44→20:18)
[2023-01-29] MEDS: METOPROLOL TAR 25 MG TAB PO SCH ×2 (05:54→17:10)
[2023-01-29 06:20] LABS: Absolute Lymphocytes (CBC) 0.5 K/uL (0.7-4.9); Hematocrit 34.7 % (39.6-49.0); Lymphocytes % 10.5 % (15.3-44.8); MCV 103.9 fL (80-100); MPV 7.5 fL (7.6-11.3); RBC Red Blood Cell Count 3.34 M/uL (4.33-5.43)
[2023-01-29 06:31] LABS: Magnesium 2.1 mg/dL (1.6-2.4); Phosphorus 2.6 mg/dL (2.5-4.9); Potassium 4.1 mEq/L (3.5-5.1)
[2023-01-29] MEDS: MUPIROCIN 2% OINT 22GM TUBE TOP SCH (07:47)
[2023-01-29] MEDS: AMIODARONE HCL 200 MG TAB PO SCH ×2 (07:47→20:07)
[2023-01-29] MEDS: ENOXAPARIN 80 MG/0.8 ML SQ SCH ×2 (07:47→20:07)
[2023-01-29] MEDS: FUROSEMIDE 20 MG TABLET PO SCH ×2 (07:48→17:09)
[2023-01-29] MEDS: DIGOXIN 0.25 MG TABLET PO SCH (07:48)
[2023-01-29] MEDS: POTASSIUM CL SA 10 MEQ TAB PO SCH (07:48)
[2023-01-29] MEDS: MONTELUKAST 10 MG TAB PO SCH (07:49)
--- NOTE | 2023-01-29 07:58 | RAD REPORT ---
EXAM DESCRIPTION: RAD - Abdomen 1 View (KUB) - 01/29/2023 6:02 am CLINICAL HISTORY: Distention COMPARISON: Abdomen 1 View (KUB) dated 01/28/2023; Abdomen Pelvis Wo Contrast dated 01/28/2023 FINDINGS: Diffusely dilated colon and portions of small bowel. While the sigmoid appears less dilate d, portions of small bowel demonstrate increased gaseous distention. No acute osseous abnormality.Vis ualized lungs are unremarkable.No abnormal calcifications. Right SFA stent. IMPRESSION: Diffusely dilated small bowel and colon likely reflecting an ileus. Overall, the finding s are little changed compared with 01/28/2023.
--- NOTE | 2023-01-29 13:30 | P.PN ---
Date of Service: 01/29/23 Chief Complaint: Septic shock Subjective: Patient is resting comfortably in bed, awake and oriented x3. On 2L NC. No complaints at this time. Denies any nausea, vomiting or diarrhea. Reports abdominal distention, mild generalized tenderness. Bilateral lower leg wounds/cellulitis continues to improve. Concern for bowel ischemia 01/28, CT abdomen/pelvis revealed pneumatosis in the cecum and ascending colon. Dr. Freeman general surgery on case who recommended switching antibiotics to Zosyn and remain NPO Physical Examination - Vital Signs Temp Pulse Resp BP Pulse Ox 97.8 F 84 18 100/48 L 94 01/29/23 08:00 01/29/23 08:00 01/29/23 12:32 01/29/23 08:00 01/29/23 12:32 - Physical Exam General: Alert, In no apparent distress, Oriented x3 HEENT: Atraumatic, Normocephalic Neck: Supple, JVD not distended Respiratory: Diminished; normal air movement; on 2L NC Cardiovascular: No edema, atrial fibrillation Gastrointestinal: Normal bowel sounds, abdomen distended, no tenderness at this time Musculoskeletal: No clubbing, No swelling Integumentary: BLE dressing clean, dry and intact. Neurological: Normal speech, Normal tone, Normal affect - Studies Laboratory Data - reviewed Microbiology Data -Blood Cultures 01/21: No growth - Stool cultures 01/29: pending Imagings Data: - CT lower extremity 01/21: "Moderate subcutaneous edematous changes of the lower leg and foot as above. No soft tissue gas. No appreciable fluid collections within limits of noncontrast evaluation." - Venous ultrasound BLE 01/22: "No sonographic evidence of left or right lower extremity deep venous thrombosis." - KUB XR 01/29: Diffusely dilated small bowel and colon likely reflecting an ileus. Overall, the findings are little changed compared with 01/28/2023. - CT Abdomen 01/28: "Markedly dilated colon, with pneumatosis noted along the cecum and ascending colon. Findings raise concern for colonic ischemia or severe colitis" Medications List Reviewed: Yes Assessment And Plan Problem List - Acute kidney injury - Cellulitis, bilateral lower leg - Congestive Heart Failure - COPD - Coronary Artery Disease - Atrial Fibrillation - Septic Shock Concern for bowel ischemia - CT Abdomen 01/28: "Markedly dilated colon, with pneumatosis noted along the cecum and ascending colon. Findings raise concern for colonic ischemia or severe colitis" - General surgery on case who recommended switching antibiotics to Zosyn and remain NPO - Currently on Zosyn (started 01/28) Cellulitis / Septic shock - improved - Right lower leg improving - Left lower leg improving - Previously on IV cefepime (01/21-01/28) and IV vancomycin (01/21-01/28) d/c by surgery team - wound care: apply mupirocin to BLE and wrap; elevate legs - No leukocytosis; afebrile Recommendations - BLE cellulitis: continue current wound care - Patient currently on Zosyn (started 01/28) per general surgery - ID will follow up and monitor for signs of infection Case discussed with Dr. Wright, N
[2023-01-29] MEDS: PIPER TAZO 3.375 GM in NA CHLORIDE 0.9% 100 ML IV SCH (17:11)
[2023-01-29 19:00] LABS: Specific Gravity 1.013 (1.005-1.030); Urine Bacteria None Seen /HPF (<20); Urine Bilirubin NEGATIVE (Negative); Urine Blood 1+ (Negative); Urine Clarity Clear (Clear); Urine Color Light-Yellow (Yellow); Urine Crystals Unidentified Few /HPF (None Seen); Urine Glucose NEGATIVE (Negative); Urine Mucus Slight /HPF (None Seen); Urine Protein NEGATIVE (Negative); Urine Urobilinogen Normal (Normal)
--- NOTE | 2023-01-29 19:43 | P.PN ---
Subjective Date of Service: 01/29/23 Chief Complaint: Septic shock No acute events overnight. His abdomen remains distended, but much improved compared to yesterday. He has had a small bowel movement overnight. He is strict NPO per Surgery recs. Appreciate Surgery guidance. He denies any chest pain, palpitations, or shortness of breath. Review of Systems 10-point ROS is otherwise unremarkable Gastrointestinal: Distention, Constipation Physical Examination - Vital Signs Temperature: 98.7 F Blood Pressure: 105/50 Pulse: 70 Respirations: 16 Pulse Ox (%): 94 - Studies Medications List Reviewed: Yes Assessment And Plan - Plan - Physical Exam General: Alert, In no apparent distress, Oriented x3 HEENT: Atraumatic, Sclerae nonicteric Neck: JVD not distended Respiratory: Clear to auscultation bilaterally, Normal air movement Cardiovascular: No edema, No murmurs, Irregular heart rate/rhythm Gastrointestinal: Distended, Mild generalized tenderness - improved compared to yesterday Musculoskeletal: No clubbing Integumentary: Other (lower extremities covered in clean surgical dressing/ALEX wrap) Neurological: Normal speech, Normal affect # Concern for Bowel Obstruction vs possible Ileus - General Surgery consulted and spoke with Dr. Freeman - recommendations appreciated - KUB = "diffuse bowel distention, which may indicate underlying obstruction" - CT abdomen/pelvis = "markedly dilated colon, with pneumatosis noted along the cecum and ascending colon. Findings raise concern for colonic ischemia or severe colitis. Bilateral layering pleural effusions and mild free ascites, new since the prior exam." - KUB (01/29) = "diffusely dilated small bowel and colon likely reflecting an ileus. Overall, the findings are little changed compared with 01/28/2023." - NPO - If he develops nausea/vomiting, place NG tube # Septic Shock likely secondary to Bilateral Lower Extremity Cellulitis - improved He met sepsis criteria based on HR > 90 bpm, RR > 20 breaths/min, and WBC > 12,000, and the suspected source is cellulitis. Severe sepsis was suspected due to concern for tissue hypoperfusion/organ dysfunction based on hypotension (SBP < 90, MAP < 65), creatinine >2.0 mg/dL (without ESRD), coagulopathy (INR > 1.5), and lactic acid > 2 mmol/L. Septic shock is suspected due to SBP < 90 mmHg , MAP <65. - Infectious Diseases was consulted and spoke with SALLY Hassan - recommendations appreciated - General Surgery consulted and spoke with Dr. Freeman - recommendations appreciated - Sepsis order set was initiated - Lactate trend: 2.6 -> 1.6 -> 1.5 - Blood cultures drawn before antibiotics were given - Broad spectrum antibiotics started: Vancomycin + Cefepime - In regards to fluids: - 30 mL/kg of IV fluids was given based on his actual body weight - Norepinephrine was started due to persistent hypotension - which has since been weaned off - Left CT lower extremity = "pronounced subcutaneous edematous changes of the left lower leg and foot as above, most compatible with cellulitis. No soft tissue gas. No appreciable fluid collections within limits of noncontrast evaluation." - Right CT lower extremity = "moderate subcutaneous edematous changes of the lower leg and foot as above. No soft tissue gas. No appreciable fluid collections within limits of noncontrast evaluation." - Bilateral lower extremity Doppler = "no sonographic evidence of left or right lower extremity deep venous thrombosis." # Paroxysmal Atrial Fibrillation with Rapid Ventricular Response # Coronary Artery Disease s/p PCI # Peripheral Artery Disease s/p Femoral-Popliteal Stent His [id number] = 5 (CHF=1, Age>75=2, DM=1, CAD=1), which warrants anticoagulation. - Cardiology consulted and spoke with Dr. Torres - recommendations appreciated - Recommended amiodarone 400 mg BID x 7 days (today is day 5 of 7), followed by 200 mg daily - Recommended digoxin 250 mcg daily - Recommended metoprol tartrate 25 mg BID - Planning for cardiac ablation as an outpatient - Switched home rivaroxaban to enoxaparin while hospitalized # KDIGO Stage II Acute Kidney Injury likely due to Septic Shock - improved - Nephrology consulted - recommendations appreciated - Creatinine = 3.69 -> 3.49 -> 2.66 -> 1.44 -> 1.42 -> 1.32 -> 1.47 -> 1.24 -> 1.33 -> 1.47 - Urinalysis = 11-20 RBCs, 1+ glucose, trace protein - Monitor creatinine and urine output - If worsening, obtain renal ultrasound - Renally dose medications # 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 Findings may relate to a mild infectious or inflammatory process. Ectasia of the ascending thoracic aorta, measuring 4.2 centimeter in caliber. No acute abnormality in the abdomen and pelvis. Incidentally noted nonobstructing smaller right renal calculi. Other incidental findings as above." - Follow-up with PCP for further evaluation # Chronic Compensated Diastolic Congestive Heart Failure - No evidence of acute CHF exacerbation - Transthoracic echocardiogram = "1. very poor study (poor windows) 2. overall, left ventricular ejection fraction appears normal" # Chronic Obstructive Pulmonary Disease - No evidence of acute COPD exacerbation Obed Zhang M.D.
--- NOTE | 2023-01-29 20:14 | P.PN ---
Subjective Date of Service: 01/29/23 Chief Complaint: Septic shock Patient has a new issue and finding, he had new onset abdominal pain and distention. - continues to have soft watery bowel movements. Physical Examination - Vital Signs Temperature: 98.7 F Blood Pressure: 105/50 Pulse: 70 Respirations: 16 Pulse Ox (%): 94 - Physical Exam General: Alert, In no apparent distress, Cooperative Neck: Supple Respiratory: Clear to auscultation bilaterally Gastrointestinal: Other (soft, mild tenderness, distended, tympanic, no peritonitis, no rebound, no gaurding.) Integumentary: Other (bilateral lower extremities are improving, cellulitis has improved.) - Studies Medications List Reviewed: Yes Assessment And Plan - Current Problems (Diagnosis) (1) Bilateral lower leg cellulitis Current Visit: Yes Status: Acute Plan: 82 year old man with bilateral lower extremity cellulitis and abdominal distention - CT scan noted possible pneumatosis coli of the cecum - continue antibiotic coverage, - continue serial exams of abdomen - muporicin cream to bilateral lower extremities, wrap and elevate - no evidence of ischemia based on exam, - stool studies, culture, O+P, culture, e-coli
--- NOTE | 2023-01-29 20:17 | P.PN ---
Date of Service: 01/29/23 Vital Signs Temp Pulse Resp BP Pulse Ox 98.7 F 70 16 105/50 L 94 01/29/23 19:45 01/29/23 19:45 01/29/23 19:45 01/29/23 19:45 01/29/23 19:45 Medications Acetaminophen (Acetaminophen 325 Mg Tablet) 650 mg PO Q6H PRN PRN Reason: Pain scale 5-7 (Moderate) Last Admin: 01/27/23 14:25 Dose: 650 mg Amiodarone HCl (Amiodarone Hcl 200 Mg Tab) 400 mg PO BID [facility] Stop: 02/01/23 09:01 Last Admin: 01/29/23 20:07 Dose: 400 mg Amiodarone HCl (Amiodarone Hcl 200 Mg Tab) 200 mg PO DAILY [facility] Cetirizine HCl (Cetirizine Hcl 5 Mg Tablet) 10 mg PO DAILY PRN PRN Reason: ALLERGIES Last Admin: 01/25/23 07:40 Dose: 10 mg Digoxin (Digoxin 0.25 Mg Tablet) 0.25 mg PO DAILY [facility] Last Admin: 01/29/23 07:48 Dose: Not Given Enoxaparin Sodium (Enoxaparin 80 Mg/0.8 Ml) 80 mg SQ Q12HR [facility] Last Admin: 01/29/23 20:07 Dose: 80 mg Fluticasone Propionate (Fluticasone 50mcg Nasal [place]) 1 sprays DORETHA BID PRN PRN Reason: ALLERGIES Furosemide (Furosemide 20 Mg Tablet) 20 mg PO BIDL [facility] Last Admin: 01/29/23 17:09 Dose: 20 mg Piperacillin Sod/Tazobactam (Sod 3.375 gm/ Sodium Chloride) 100 mls @ 25 mls/hr IV Q8HR [facility]; Protocol Last Admin: 01/29/23 17:11 Dose: 100 mls Metoprolol Tartrate (Metoprolol Tar 25 Mg Tab) 25 mg PO BID 6AM 6PM [facility] Last Admin: 01/29/23 17:10 Dose: Not Given Montelukast Sodium (Montelukast 10 Mg Tab) 10 mg PO DAILY [facility] Last Admin: 01/29/23 07:49 Dose: Not Given Morphine Sulfate (Morphine 2 Mg/Ml Syr) 2 mg IV Q4H PRN PRN Reason: Pain scale 8-10 (Severe) Last Admin: 01/29/23 12:32 Dose: 2 mg Mupirocin (Mupirocin 2% Oint 22gm Tube) 1 appl TOP DAILY [facility] Last Admin: 01/29/23 07:47 Dose: 1 appl Ondansetron HCl (Ondansetron 4 Mg/2 Ml Vial) 4 mg IV Q4H PRN PRN Reason: NAUSEA / VOMITING Potassium Chloride (Potassium Cl Sa 10 Meq Tab) 20 meq PO DAILY [facility] Last Admin: 01/29/23 07:48 Dose: Not Given Protein (Ensure Max Protein 330 Ml Liquid) 330 ml PO BID PRN PRN Reason: If < 50% PO intake Sodium Chloride (Flush Normal Saline 10 Ml) 10 ml IV BID [facility] Last Admin: 01/29/23 20:07 Dose: 10 ml Microbiology Results 01/21/23 12:48 Blood - Blood Aerobic Blood Culture - Final No growth in 5 days. 01/21/23 12:48 Blood - Blood Anaerobic Blood Culture - Final No growth in 5 days. 01/21/23 12:00 Blood - Blood Aerobic Blood Culture - Final No growth in 5 days. 01/21/23 12:00 Blood - Blood Anaerobic Blood Culture - Final No growth in 5 days. Assessment/ Plan: Nephrology No dyspnea No chest pain +BM No acute events overnight Vitals, medications, blood work and imaging reviewed in the chart. NAD. NCAT. Obese. MMM. Neck supple. Normal respiratory effort. RRR. Abd NT. No C/C. Hip trace. LE wounds. AAO. Normal speech. LEFT VENTRICULAR WALL MOTION: UNABLE TO EVALUATE DUE TO POOR WINDOWS DOPPLER/COLOR FLOW: MILD TRICUSPID REGURGITATION COMMENTS: 1. VERY POOR STUDY (POOR WINDOWS) 2. OVERALL, LEFT VENTRICULAR EJECTION FRACTION APPEARS NORMAL EXAM DESCRIPTION: CT - Chest Abd Pelvis Wo Con - 01/21/2023 2:07 pm CLINICAL HISTORY: weakness. Shortness of breath. Hypotension COMPARISON: Chest Single View dated 01/21/2023 TECHNIQUE: Noncontrast thin axial CT images of the chest, abdomen, and pelvis were performed. Multiplanar reformats were generated and reviewed. All CT scans are performed using dose optimization technique as appropriate and may include automated exposure control or mA/KV adjustment according to patient size. FINDINGS: The lungs show no focal consolidation. Bibasilar platelike atelectasis. Scattered peripheral predominantly ground-glass small nodules and tree-in-bud opacities, the largest in the upper segment right lower lobe, series 201, image 34, and in the anterior left upper lobe, image 32.No pleural or pericardial effusion.No intrathoracic adenopathy. Ectasia of the ascending thoracic aorta measuring 4.2 centimeter in caliber. The liver, spleen, pancreas, and adrenal glands are within normal limits. No hydroureteronephrosis. Right mid and lower pole punctate radiodensities, the largest measuring 4 millimeter at the right midpole. 2.2 centimeter right lower lobe cystic lesion. No bowel obstruction, free air, free fluid or abscess. Normal appendix. No pathologic lymphadenopathy in the abdomen or pelvis. Urinary bladder is decompressed with Barajas catheter in place. No worrisome osseous finding. Lobulated densities in the right shoulder periarticular region, could relate to osteochondromatosis. IMPRESSION: Scattered peripheral micro nodules and tree-in-bud opacities as above. Findings may relate to a mild infectious or inflammatory process. Ectasia of the ascending thoracic aorta, measuring 4.2 centimeter in caliber No acute abnormality in the abdomen and pelvis. Stage II SANCHEZ CKD III with proteinuria -No NSAIDs Hypokalemia -Replete prn HTN with CKD/ CHF -Continue Metoprolol Diastolic CHF, chronic -Daily weight -Low sodium diet -Continue furosemide DM II with CKD -RISS prn Anemia in chronic illness -Monitor H&H Septic Shock BL LE Cellulitis -Continue abx
--- NOTE | 2023-01-29 20:40 | PN ---
Mr. Street is being followed by us for atrial fibrillation. He is still in atrial fibrillation, rate of 85. He is still on digoxin, Lopressor, Lovenox. Last creatinine is 1.47. Mr. Street is doing m uch better. No cardiac complaint. Rate is controlled. Chest is clear and from our standpoint, need s to get back on amiodarone. It should be at 200 mg once a day. Case was discussed with Dr. Zhang. We will continue to follow as needed. [place]/CLAUDY Voice ID: [id number] Report ID: [id number]
[2023-01-30] MEDS: PIPER TAZO 3.375 GM in NA CHLORIDE 0.9% 100 ML IV SCH ×3 (00:59→17:15)
[2023-01-30] MEDS: METOPROLOL TAR 25 MG TAB PO SCH ×2 (06:00→17:17)
[2023-01-30 06:13] LABS: Absolute Lymphocytes (CBC) 0.4 K/uL (0.7-4.9); Hematocrit 32.7 % (39.6-49.0); Lymphocytes % 8.6 % (15.3-44.8); MCV 104.5 fL (80-100); MPV 7.4 fL (7.6-11.3); RBC Red Blood Cell Count 3.13 M/uL (4.33-5.43)
--- NOTE | 2023-01-30 07:44 | RAD REPORT ---
EXAM DESCRIPTION: RAD - Abdomen 1 View (KUB) - 01/30/2023 5:24 am CLINICAL HISTORY: Distention COMPARISON: Abdomen 1 View (KUB) dated 01/29/2023; Abdomen 1 View (KUB) dated 01/28/2023; Abdomen Pe lvis Wo Contrast dated 01/28/2023 FINDINGS: Colonic and small bowel distention has modestly improved. Mild diffuse small bowel dilatat ion remains. No acute osseous abnormality.Visualized lungs are unremarkable.No abnormal calcification s. IMPRESSION: Improved bowel dilatation, particularly of the colon. Mild diffuse small bowel dilatatio n remains.
[2023-01-30] MEDS: ENOXAPARIN 80 MG/0.8 ML SQ SCH ×2 (08:19→20:47)
[2023-01-30] MEDS: FUROSEMIDE 20 MG TABLET PO SCH ×2 (08:20→17:16)
[2023-01-30] MEDS: AMIODARONE HCL 200 MG TAB PO SCH ×2 (08:20→20:46)
[2023-01-30] MEDS: POTASSIUM CL SA 10 MEQ TAB PO SCH (08:20)
[2023-01-30] MEDS: DIGOXIN 0.25 MG TABLET PO SCH (08:20)
[2023-01-30] MEDS: MONTELUKAST 10 MG TAB PO SCH (08:21)
[2023-01-30] MEDS: MUPIROCIN 2% OINT 22GM TUBE TOP SCH (09:00)
[2023-01-30 10:03] LABS: C.diff Antigen/Toxin Ag neg : Tox neg (NEG : NEG)
--- NOTE | 2023-01-30 10:48 | P.PN ---
Date of Service: 01/30/23 Chief Complaint: Septic shock Subjective: Improving Patient is laying comfortably in bed, awake and oriented x3. On 2L NC. Reports loose stools. Denies any abdominal pain or distention, nausea or vomiting. Bilateral lower leg wounds/cellulitis continues to improve. Physical Examination - Vital Signs Temp Pulse Resp BP Pulse Ox 97.5 F 78 18 109/60 99 01/30/23 04:00 01/30/23 08:20 01/30/23 04:00 01/30/23 08:20 01/30/23 04:00 - Physical Exam General: Alert, In no apparent distress, Oriented x3 HEENT: Atraumatic, Normocephalic Neck: Supple, JVD not distended Respiratory: Clear to auscultation bilaterally Cardiovascular: No edema, atrial fibrillation Gastrointestinal: Normal bowel sounds, abdomen non-distended, Soft, No tenderness, No guarding, No peritonitis Musculoskeletal: No clubbing, No swelling Integumentary: BLE cellulitis dressing clean, dry and intact. Neurological: Normal speech, Normal tone, Normal affect - Studies Laboratory Data - reviewed Microbiology Data -Blood Cultures 01/21: No growth - Stool cultures 01/29: pending Imagings Data: - CT lower extremity 01/21: "Moderate subcutaneous edematous changes of the lower leg and foot as above. No soft tissue gas. No appreciable fluid collections within limits of noncontrast evaluation." - Venous ultrasound BLE 01/22: "No sonographic evidence of left or right lower extremity deep venous thrombosis." - CT Abdomen 01/28: "Markedly dilated colon, with pneumatosis noted along the ce cum and ascending colon. Findings raise concern for colonic ischemia or severe colitis" - KUB 01/29: Diffusely dilated small bowel and colon likely reflecting an ileus. Overall, the findings are little changed compared with 01/28/2023. - KUB abdomen 01/30: "Improved bowel dilatation, particularly of the colon. Mild diffuse small bowel dilatation remains." Medications List Reviewed: Yes Assessment And Plan Problem List - Acute kidney injury - Cellulitis, bilateral lower leg - Congestive Heart Failure - COPD - Coronary Artery Disease - Atrial Fibrillation - Septic Shock Abdominal Distention - CT abdomen/pelvis 01/28 revealed pneumatosis in the cecum and ascending colon. There was concern for bowel ischemia. Dr. Freeman general surgery on case who recommended switching antibiotics to Zosyn. KUB 01/30 "Improved bowel dilatation, particularly of the colon. Mild diffuse small bowel dilatation remains." Per general surgery, no evidence of bowel ischemia, continue antibiotic coverage. - Stool studies and culture pending Cellulitis / Septic shock - improved - Right lower leg cellulitis: improving - Left lower leg cellulitis: improving - Previously on IV cefepime (01/21-01/28) and IV vancomycin (01/21-01/28), d/c by surgery team - Wound care: apply mupirocin to BLE and wrap; elevate legs - No leukocytosis; afebrile Recommendations - BLE cellulitis: Continue current wound care - Currently on IV Zosyn (01/28-) per surgery team; continue antibiotic coverage ID will follow up and monitor for signs of infection Case discussed with Dr. Wright, N
[2023-01-30] MEDS: MORPHINE 2 MG/ML SYR IV PRN ×3 (13:09→21:32)
--- NOTE | 2023-01-30 21:24 | P.PN ---
Date of Service: 01/30/23 Vital Signs Temp Pulse Resp BP Pulse Ox 97.8 F 81 19 113/58 L 97 01/30/23 16:00 01/30/23 17:17 01/30/23 17:19 01/30/23 17:17 01/30/23 17:19 Medications Acetaminophen (Acetaminophen 325 Mg Tablet) 650 mg PO Q6H PRN PRN Reason: Pain scale 5-7 (Moderate) Last Admin: 01/27/23 14:25 Dose: 650 mg Amiodarone HCl (Amiodarone Hcl 200 Mg Tab) 400 mg PO BID [facility] Stop: 02/01/23 09:01 Last Admin: 01/30/23 20:46 Dose: 400 mg Amiodarone HCl (Amiodarone Hcl 200 Mg Tab) 200 mg PO DAILY [facility] Cetirizine HCl (Cetirizine Hcl 5 Mg Tablet) 10 mg PO DAILY PRN PRN Reason: ALLERGIES Last Admin: 01/25/23 07:40 Dose: 10 mg Digoxin (Digoxin 0.25 Mg Tablet) 0.25 mg PO DAILY [facility] Last Admin: 01/30/23 08:20 Dose: 0.25 mg Enoxaparin Sodium (Enoxaparin 80 Mg/0.8 Ml) 80 mg SQ Q12HR [facility] Last Admin: 01/30/23 20:47 Dose: 80 mg Fluticasone Propionate (Fluticasone 50mcg Nasal [place]) 1 sprays DORETHA BID PRN PRN Reason: ALLERGIES Furosemide (Furosemide 20 Mg Tablet) 20 mg PO BIDL [facility] Last Admin: 01/30/23 17:16 Dose: 20 mg Piperacillin Sod/Tazobactam (Sod 3.375 gm/ Sodium Chloride) 100 mls @ 25 mls/hr IV Q8HR [facility]; Protocol Last Admin: 01/30/23 17:15 Dose: 100 mls Metoprolol Tartrate (Metoprolol Tar 25 Mg Tab) 25 mg PO BID 6AM 6PM [facility] Last Admin: 01/30/23 17:17 Dose: Not Given Montelukast Sodium (Montelukast 10 Mg Tab) 10 mg PO DAILY [facility] Last Admin: 01/30/23 08:21 Dose: 10 mg Morphine Sulfate (Morphine 2 Mg/Ml Syr) 2 mg IV Q4H PRN PRN Reason: Pain scale 8-10 (Severe) Last Admin: 01/30/23 17:19 Dose: 2 mg Mupirocin (Mupirocin 2% Oint 22gm Tube) 1 appl TOP DAILY [facility] Last Admin: 01/30/23 09:00 Dose: 1 appl Ondansetron HCl (Ondansetron 4 Mg/2 Ml Vial) 4 mg IV Q4H PRN PRN Reason: NAUSEA / VOMITING Potassium Chloride (Potassium Cl Sa 10 Meq Tab) 20 meq PO DAILY [facility] Last Admin: 01/30/23 08:20 Dose: 20 meq Protein (Ensure Max Protein 330 Ml Liquid) 330 ml PO BID PRN PRN Reason: If < 50% PO intake Sodium Chloride (Flush Normal Saline 10 Ml) 10 ml IV BID [facility] Last Admin: 01/30/23 20:47 Dose: 10 ml Microbiology Results 01/21/23 12:48 Blood - Blood Aerobic Blood Culture - Final No growth in 5 days. 01/21/23 12:48 Blood - Blood Anaerobic Blood Culture - Final No growth in 5 days. 01/21/23 12:00 Blood - Blood Aerobic Blood Culture - Final No growth in 5 days. 01/21/23 12:00 Blood - Blood Anaerobic Blood Culture - Final No growth in 5 days. Assessment/ Plan: Nephrology No dyspnea No chest pain +BM No acute events overnight Vitals, medications, blood work and imaging reviewed in the chart. NAD. NCAT. Obese. MMM. Neck supple. Normal respiratory effort. RRR. Distended Abd. No C/C. Hip trace. LE wounds. AAO. Normal speech. LEFT VENTRICULAR WALL MOTION: UNABLE TO EVALUATE DUE TO POOR WINDOWS DOPPLER/COLOR FLOW: MILD TRICUSPID REGURGITATION COMMENTS: 1. VERY POOR STUDY (POOR WINDOWS) 2. OVERALL, LEFT VENTRICULAR EJECTION FRACTION APPEARS NORMAL EXAM DESCRIPTION: CT - Chest Abd Pelvis Wo Con - 01/21/2023 2:07 pm CLINICAL HISTORY: weakness. Shortness of breath. Hypotension COMPARISON: Chest Single View dated 01/21/2023 TECHNIQUE: Noncontrast thin axial CT images of the chest, abdomen, and pelvis were performed. Multiplanar reformats were generated and reviewed. All CT scans are performed using dose optimization technique as appropriate and may include automated exposure control or mA/KV adjustment according to patient size. FINDINGS: The lungs show no focal consolidation. Bibasilar platelike atelectasis. Scattered peripheral predominantly ground-glass small nodules and tree-in-bud opacities, the largest in the upper segment right lower lobe, series 201, image 34, and in the anterior left upper lobe, image 32.No pleural or pericardial effusion.No intrathoracic adenopathy. Ectasia of the ascending thoracic aorta measuring 4.2 centimeter in caliber. The liver, spleen, pancreas, and adrenal glands are within normal limits. No hydroureteronephrosis. Right mid and lower pole punctate radiodensities, the largest measuring 4 millimeter at the right midpole. 2.2 centimeter right lower lobe cystic lesion. No bowel obstruction, free air, free fluid or abscess. Normal appendix. No pathologic lymphadenopathy in the abdomen or pelvis. Urinary bladder is decompressed with Barajas catheter in place. No worrisome osseous finding. Lobulated densities in the right shoulder periarticular region, could relate to osteochondromatosis. IMPRESSION: Scattered peripheral micro nodules and tree-in-bud opacities as above. Findings may relate to a mild infectious or inflammatory process. Ectasia of the ascending thoracic aorta, measuring 4.2 centimeter in caliber No acute abnormality in the abdomen and pelvis. Stage II SANCHEZ CKD III with proteinuria -No NSAIDs Hypokalemia -Replete prn HTN with CKD/ CHF -Continue Metoprolol Diastolic CHF, chronic -Daily weight -Low sodium diet -Continue furosemide DM II with CKD -RISS prn Anemia in chronic illness -Monitor H&H Septic Shock BL LE Cellulitis -Continue abx Pneumatosis coli -Surgery following
--- NOTE | 2023-01-30 21:28 | P.PN ---
Subjective Date of Service: 01/30/23 Chief Complaint: Septic shock No acute events overnight. His abdomen is slightly less distended than yesterday. He has passed about 3 bowel movements, which appears to be alleviating his symptoms. Started on clear liquid diet per Surgery. He denies any chest pain, palpitations, or shortness of breath. Review of Systems 10-point ROS is otherwise unremarkable Gastrointestinal: Abdominal Pain, Distention Physical Examination - Vital Signs Temperature: 97.8 F Blood Pressure: 113/58 Pulse: 81 Respirations: 19 Pulse Ox (%): 97 - Studies Medications List Reviewed: Yes Assessment And Plan - Plan - Physical Exam General: Alert, In no apparent distress, Oriented x3 HEENT: Atraumatic, Sclerae nonicteric Neck: JVD not distended Respiratory: Clear to auscultation bilaterally, Normal air movement Cardiovascular: No edema, No murmurs, Irregular heart rate/rhythm Gastrointestinal: Distended, No tenderness Musculoskeletal: No clubbing Integumentary: Other (lower extremities covered in clean surgical dressing/ALEX wrap) Neurological: Normal speech, Normal affect # Concern for Bowel Obstruction vs possible Ileus - General Surgery consulted and spoke with Dr. Freeman - recommendations appreciated - KUB = "diffuse bowel distention, which may indicate underlying obstruction" - CT abdomen/pelvis = "markedly dilated colon, with pneumatosis noted along the cecum and ascending colon. Findings raise concern for colonic ischemia or severe colitis. Bilateral layering pleural effusions and mild free ascites, new since the prior exam." - KUB (01/29) = "diffusely dilated small bowel and colon likely reflecting an ileus. Overall, the findings are little changed compared with 01/28/2023." - Clear liquid diet per Surgery # Septic Shock likely secondary to Bilateral Lower Extremity Cellulitis - improved He met sepsis criteria based on HR > 90 bpm, RR > 20 breaths/min, and WBC > 12,000, and the suspected source is cellulitis. Severe sepsis was suspected due to concern for tissue hypoperfusion/organ dysfunction based on hypotension (SBP < 90, MAP < 65), creatinine >2.0 mg/dL (without ESRD), coagulopathy (INR > 1.5), and lactic acid > 2 mmol/L. Septic shock is suspected due to SBP < 90 mmHg , MAP <65. - Infectious Diseases was consulted and spoke with SALLY Hassan - recommendations appreciated - General Surgery consulted and spoke with Dr. Freeman - recommendations appreciated - Sepsis order set was initiated - Lactate trend: 2.6 -> 1.6 -> 1.5 - Blood cultures drawn before antibiotics were given - Broad spectrum antibiotics started: Vancomycin + Cefepime - In regards to fluids: - 30 mL/kg of IV fluids was given based on his actual body weight - Norepinephrine was started due to persistent hypotension - which has since been weaned off - Left CT lower extremity = "pronounced subcutaneous edematous changes of the left lower leg and foot as above, most compatible with cellulitis. No soft tissue gas. No appreciable fluid collections within limits of noncontrast evaluation." - Right CT lower extremity = "moderate subcutaneous edematous changes of the lower leg and foot as above. No soft tissue gas. No appreciable fluid collections within limits of noncontrast evaluation." - Bilateral lower extremity Doppler = "no sonographic evidence of left or right lower extremity deep venous thrombosis." # Paroxysmal Atrial Fibrillation with Rapid Ventricular Response # Coronary Artery Disease s/p PCI # Peripheral Artery Disease s/p Femoral-Popliteal Stent His [id number] = 5 (CHF=1, Age>75=2, DM=1, CAD=1), which warrants anticoagulation. - Cardiology consulted and spoke with Dr. Torres - recommendations appreciated - Recommended amiodarone 400 mg BID x 7 days (today is day 6 of 7), followed by 200 mg daily - Recommended digoxin 250 mcg daily - Recommended metoprol tartrate 25 mg BID - Planning for cardiac ablation as an outpatient - Switched home rivaroxaban to enoxaparin while hospitalized # KDIGO Stage II Acute Kidney Injury likely due to Septic Shock - improved - Nephrology consulted - recommendations appreciated - Creatinine = 3.69 -> 3.49 -> 2.66 -> 1.44 -> 1.42 -> 1.32 -> 1.47 -> 1.24 -> 1.33 -> 1.47 -> 1.56 - Urinalysis = 11-20 RBCs, 1+ glucose, trace protein - Monitor creatinine and urine output - If worsening, obtain renal ultrasound - Renally dose medications # 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 Findings may relate to a mild infectious or inflammatory process. Ectasia of the ascending thoracic aorta, measuring 4.2 centimeter in caliber. No acute abnormality in the abdomen and pelvis. Incidentally noted nonobstructing smaller right renal calculi. Other incidental findings as above." - Follow-up with PCP for further evaluation # Chronic Compensated Diastolic Congestive Heart Failure - No evidence of acute CHF exacerbation - Transthoracic echocardiogram = "1. very poor study (poor windows) 2. overall, left ventricular ejection fraction appears normal" # Chronic Obstructive Pulmonary Disease - No evidence of acute COPD exacerbation Obed Zhang M.D.
[2023-01-31] MEDS: PIPER TAZO 3.375 GM in NA CHLORIDE 0.9% 100 ML IV SCH ×3 (00:46→17:46)
[2023-01-31] MEDS: METOPROLOL TAR 25 MG TAB PO SCH ×2 (06:00→17:46)
[2023-01-31 06:34] LABS: Absolute Lymphocytes (CBC) 0.5 K/uL (0.7-4.9); Hematocrit 30.5 % (39.6-49.0); Lymphocytes % 9.2 % (15.3-44.8); MCV 103.7 fL (80-100); MPV 7.6 fL (7.6-11.3); RBC Red Blood Cell Count 2.94 M/uL (4.33-5.43)
[2023-01-31] MEDS: ENOXAPARIN 80 MG/0.8 ML SQ SCH ×2 (08:29→21:06)
[2023-01-31] MEDS: POTASSIUM CL SA 10 MEQ TAB PO SCH (08:30)
[2023-01-31] MEDS: MONTELUKAST 10 MG TAB PO SCH (08:30)
[2023-01-31] MEDS: AMIODARONE HCL 200 MG TAB PO SCH ×2 (08:30→21:06)
[2023-01-31] MEDS: FUROSEMIDE 20 MG TABLET PO SCH ×2 (08:30→17:46)
[2023-01-31] MEDS: DIGOXIN 0.25 MG TABLET PO SCH (08:31)
[2023-01-31] MEDS: MUPIROCIN 2% OINT 22GM TUBE TOP SCH (08:32)
[2023-01-31] MEDS: MORPHINE 2 MG/ML SYR IV PRN ×2 (08:40→15:28)
--- NOTE | 2023-01-31 09:53 | P.PN ---
Date of Service: 01/31/23 Chief Complaint: Septic shock Subjective: Improving Patient is laying comfortably in bed, awake and oriented x3. On 1L NC. Denies any nausea, vomiting, diarrhea or abdominal pain at this time. No new complaints. Bilateral lower leg wounds/cellulitis continues to improve. Physical Examination - Vital Signs Temp Pulse Resp BP Pulse Ox 97.4 F 67 17 116/58 L 98 01/31/23 08:00 01/31/23 08:30 01/31/23 08:00 01/31/23 08:30 01/31/23 08:00 - Physical Exam General: Alert, In no apparent distress, Oriented x3 HEENT: Atraumatic, Normocephalic Neck: Supple, JVD not distended Respiratory: Clear to auscultation bilaterally, diminished at bases, on 1L NC Cardiovascular: No edema, atrial fibrillation Gastrointestinal: Normal bowel sounds, abdomen non-distended, Soft, No tenderness, No guarding, No peritonitis Musculoskeletal: No clubbing, No swelling Integumentary: BLE cellulitis dressing clean, dry and intact. Neurological: Normal speech, Normal tone, Normal affect - Studies Laboratory Data - reviewed Microbiology Data -Blood Cultures 01/21: No growth - Stool cultures 01/29: no growth Imagings Data: - CT lower extremity 01/21: "Moderate subcutaneous edematous changes of the lower leg and foot as above. No soft tissue gas. No appreciable fluid collecti ons within limits of noncontrast evaluation." - Venous ultrasound BLE 01/22: "No sonographic evidence of left or right lower extremity deep venous thrombosis." - CT Abdomen 01/28: "Markedly dilated colon, with pneumatosis noted along the cecum and ascending colon. Findings raise concern for colonic ischemia or severe colitis" - KUB 01/29: Diffusely dilated small bowel and colon likely reflecting an ileus. Overall, the findings are little changed compared with 01/28/2023. - KUB abdomen 01/30: "Improved bowel dilatation, particularly of the colon. Mild diffuse small bowel dilatation remains." Medications List Reviewed: Yes Assessment And Plan Problem List - Acute kidney injury - Cellulitis, bilateral lower leg - Congestive Heart Failure - COPD - Coronary Artery Disease - Atrial Fibrillation - Septic Shock Concern for bowel obstruction vs ileus - CT abdomen/pelvis 01/28 revealed pneumatosis in the cecum and ascending colon. There was concern for bowel ischemia. Dr. Freeman general surgery on case who recommended switching antibiotics to Zosyn. KUB 01/30 "Improved bowel dilatation, particularly of the colon. Mild diffuse small bowel dilatation remains." Per general surgery, no evidence of bowel ischemia, continue antibiotic coverage. - KUB XR 01/30: "Improved bowel dilatation, particularly of the colon. Mild diffuse small bowel dilatation remains." - Stool culture negative - On clear liquid diet - On IV Zosyn (01/28-) per surgery team Cellulitis / Septic shock - Right lower leg cellulitis: continues to improve - Left lower leg cellulitis: continues to improve - Previously on IV cefepime (01/21-01/28) and IV vancomycin (01/21-01/28), d/c by surgery team and was put on Zosyn - wound care - No leukocytosis; afebrile Recommendations - Continue Zosyn for now (started 01/28) - Continue BLE cellulitis wound care: apply mupirocin to BLE and wrap; elevate legs ID will follow up and monitor for signs of infection Case discussed with Dr. Wright, N
--- NOTE | 2023-01-31 16:30 | P.PN ---
Subjective Date of Service: 01/31/23 Chief Complaint: Septic shock Subjective: No new changes, Improving Physical Examination - Vital Signs Temperature: 97.4 F Blood Pressure: 116/58 Pulse: 67 Respirations: 17 Pulse Ox (%): 98 - Physical Exam General: Alert, In no apparent distress HEENT: Atraumatic, Normocephalic Neck: Supple Respiratory: Normal air movement Cardiovascular: Regular rate/rhythm, Normal S1 S2 Gastrointestinal: Soft and benign - Studies Medications List Reviewed: Yes Assessment And Plan - Plan # Concern for Bowel Obstruction vs possible Ileus improving on KUB serial checks. - Clear liquid diet per Surgery. # Septic Shock likely secondary to Bilateral Lower Extremity Cellulitis - improved ID following. anibiotics as per ID and surgical recommendations. # Paroxysmal Atrial Fibrillation with Rapid Ventricular Response # Coronary Artery Disease s/p PCI # Peripheral Artery Disease s/p Femoral-Popliteal Stent on lovenox for anticoagulation. we will follow closely. 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 Findings may relate to a mild infectious or inflammatory process. Ectasia of the ascending thoracic aorta, measuring 4.2 centimeter in caliber. No acute abnormality in the abdomen and pelvis. Incidentally noted nonobstructing smaller right renal calculi. Other incidental findings as above." - Follow-up with PCP for further evaluation # Chronic Compensated Diastolic Congestive Heart Failure - No evidence of acute CHF exacerbation - Transthoracic echocardiogram = "1. very poor study (poor windows) 2. overall, left ventricular ejection fraction appears normal" # Chronic Obstructive Pulmonary Disease - No evidence of acute COPD exacerbation Discharge Plan: Prison
[2023-01-31 21:45] VITALS: O2SAT 98
[2023-01-31] MEDS ORDERED: LIDOCAINE 4% PATCH TOP ONE (23:00)
--- NOTE | 2023-01-31 23:20 | P.PN ---
Date of Service: 01/31/23 Vital Signs Temp Pulse Resp BP Pulse Ox 97.1 F 65 17 102/56 L 98 01/31/23 20:00 01/31/23 20:00 01/31/23 20:00 01/31/23 20:00 01/31/23 20:00 Medications Acetaminophen (Acetaminophen 325 Mg Tablet) 650 mg PO Q6H PRN PRN Reason: Pain scale 5-7 (Moderate) Last Admin: 01/27/23 14:25 Dose: 650 mg Amiodarone HCl (Amiodarone Hcl 200 Mg Tab) 400 mg PO BID [facility] [place] Stop: 02/01/23 09:01 Last Admin: 01/31/23 21:06 Dose: 400 mg Amiodarone HCl (Amiodarone Hcl 200 Mg Tab) 200 mg PO DAILY [facility] [place] Cetirizine HCl (Cetirizine Hcl 5 Mg Tablet) 10 mg PO DAILY PRN PRN Reason: ALLERGIES Last Admin: 01/25/23 07:40 Dose: 10 mg Digoxin (Digoxin 0.25 Mg Tablet) 0.25 mg PO DAILY [facility] [place] Last Admin: 01/31/23 08:31 Dose: 0.25 mg Enoxaparin Sodium (Enoxaparin 80 Mg/0.8 Ml) 80 mg SQ Q12HR [facility] [place] Last Admin: 01/31/23 21:06 Dose: 80 mg Fluticasone Propionate (Fluticasone 50mcg Nasal [place]) 1 sprays DORETHA BID PRN PRN Reason: ALLERGIES Furosemide (Furosemide 20 Mg Tablet) 20 mg PO BIDL [facility] [place] [place] Last Admin: 01/31/23 17:46 Dose: 20 mg Piperacillin Sod/Tazobactam (Sod 3.375 gm/ Sodium Chloride) 100 mls @ 25 mls/hr IV Q8HR [facility] [place] [place]; Protocol Last Admin: 01/31/23 17:46 Dose: 100 mls Metoprolol Tartrate (Metoprolol Tar 25 Mg Tab) 25 mg PO BID 6AM 6PM [facility] [place] Last Admin: 01/31/23 17:46 Dose: 25 mg Montelukast Sodium (Montelukast 10 Mg Tab) 10 mg PO DAILY [facility] [place] Last Admin: 01/31/23 08:30 Dose: 10 mg Morphine Sulfate (Morphine 2 Mg/Ml Syr) 2 mg IV Q4H PRN PRN Reason: Pain scale 8-10 (Severe) Last Admin: 01/31/23 15:28 Dose: 2 mg Mupirocin (Mupirocin 2% Oint 22gm Tube) 1 appl TOP DAILY [facility] [place] Last Admin: 01/31/23 08:32 Dose: 1 appl Ondansetron HCl (Ondansetron 4 Mg/2 Ml Vial) 4 mg IV Q4H PRN PRN Reason: NAUSEA / VOMITING Potassium Chloride (Potassium Cl Sa 10 Meq Tab) 20 meq PO DAILY [facility] [place] [place] Last Admin: 01/31/23 08:30 Dose: 20 meq Protein (Ensure Max Protein 330 Ml Liquid) 330 ml PO BID PRN PRN Reason: If < 50% PO intake Sodium Chloride (Flush Normal Saline 10 Ml) 10 ml IV BID [facility] [place] Last Admin: 01/31/23 21:00 Dose: 10 ml Microbiology Results 01/21/23 12:48 Blood - Blood Aerobic Blood Culture - Final No growth in 5 days. 01/21/23 12:48 Blood - Blood Anaerobic Blood Culture - Final No growth in 5 days. 01/21/23 12:00 Blood - Blood Aerobic Blood Culture - Final No growth in 5 days. 01/21/23 12:00 Blood - Blood Anaerobic Blood Culture - Final No growth in 5 days. Assessment/ Plan: Nephrology No dyspnea No chest pain +BM +UO Feeling better Back Pain No acute events overnight Vitals, medications, blood work and imaging reviewed in the chart. NAD. NCAT. Obese. MMM. Neck supple. Normal respiratory effort. RRR. ND NT Abd. No C/C. Edema none. LE wounds. AAO. Normal speech. LEFT VENTRICULAR WALL MOTION: UNABLE TO EVALUATE DUE TO POOR WINDOWS DOPPLER/COLOR FLOW: MILD TRICUSPID REGURGITATION COMMENTS: 1. VERY POOR STUDY (POOR WINDOWS) 2. OVERALL, LEFT VENTRICULAR EJECTION FRACTION APPEARS NORMAL EXAM DESCRIPTION: CT - Chest Abd Pelvis Wo Con - 01/21/2023 2:07 pm CLINICAL HISTORY: weakness. Shortness of breath. Hypotension COMPARISON: Chest Single View dated 01/21/2023 TECHNIQUE: Noncontrast thin axial CT images of the chest, abdomen, and pelvis were performed. Multiplanar reformats were generated and reviewed. All CT scans are performed using dose optimization technique as appropriate and may include automated exposure control or mA/KV adjustment according to patient size. FINDINGS: The lungs show no focal consolidation. Bibasilar platelike atelectasis. Scattered peripheral predominantly ground-glass small nodules and tree-in-bud opacities, the largest in the upper segment right lower lobe, series 201, image 34, and in the anterior left upper lobe, image 32.No pleural or pericardial effusion.No intrathoracic adenopathy. Ectasia of the ascending thoracic aorta measuring 4.2 centimeter in caliber. The liver, spleen, pancreas, and adrenal glands are within normal limits. No hydroureteronephrosis. Right mid and lower pole punctate radiodensities, the largest measuring 4 millimeter at the right midpole. 2.2 centimeter right lower lobe cystic lesion. No bowel obstruction, free air, free fluid or abscess. Normal appendix. No pathologic lymphadenopathy in the abdomen or pelvis. Urinary bladder is decompressed with Barajas catheter in place. No worrisome osseous finding. Lobulated densities in the right shoulder periarticular region, could relate to osteochondromatosis. IMPRESSION: Scattered peripheral micro nodules and tree-in-bud opacities as above. Findings may relate to a mild infectious or inflammatory process. Ectasia of the ascending thoracic aorta, measuring 4.2 centimeter in caliber No acute abnormality in the abdomen and pelvis. Stage II SANCHEZ CKD III with proteinuria -No NSAIDs Hypokalemia -Replete prn HTN with CKD/ CHF -Continue Metoprolol Diastolic CHF, chronic -Daily weight -Low sodium diet -Continue furosemide DM II with CKD -RISS prn Anemia in chronic illness -Monitor H&H Septic Shock BL LE Cellulitis -Continue abx Pneumatosis coli, improving -Surgery following
[2023-02-01] MEDS: PIPER TAZO 3.375 GM in NA CHLORIDE 0.9% 100 ML IV SCH ×2 (00:45→08:58)
[2023-02-01 04:27] LABS: Absolute Lymphocytes (CBC) 0.4 K/uL (0.7-4.9); Hematocrit 33.1 % (39.6-49.0); Lymphocytes % 9.2 % (15.3-44.8); MCV 103.1 fL (80-100); MPV 7.7 fL (7.6-11.3); RBC Red Blood Cell Count 3.21 M/uL (4.33-5.43)
[2023-02-01 05:15] VITALS: BMI 29.7
[2023-02-01] MEDS: METOPROLOL TAR 25 MG TAB PO SCH (06:00)
[2023-02-01] MEDS: AMIODARONE HCL 200 MG TAB PO SCH (08:56)
[2023-02-01] MEDS: POTASSIUM CL SA 10 MEQ TAB PO SCH (08:57)
[2023-02-01] MEDS: FUROSEMIDE 20 MG TABLET PO SCH (08:57)
[2023-02-01] MEDS: ENOXAPARIN 80 MG/0.8 ML SQ SCH (08:57)
[2023-02-01] MEDS: MUPIROCIN 2% OINT 22GM TUBE TOP SCH (08:58)
[2023-02-01] MEDS ORDERED: AMIODARONE HCL 200 MG TAB PO SCH (09:00)
[2023-02-01] MEDS: DIGOXIN 0.25 MG TABLET PO SCH (10:05)
[2023-02-01] MEDS: MONTELUKAST 10 MG TAB PO SCH (10:05)
--- NOTE | 2023-02-01 10:20 | P.PN ---
Date of Service: 02/01/23 Chief Complaint: Septic shock Subjective: Improving; No new complaints Patient is laying comfortably in bed, not in distress, awake and oriented x3, on 1L NC. No new complaints at this time. No acute events reported overnight. Clinically stable. Physical Examination - Vital Signs Temp Pulse Resp BP Pulse Ox 97.0 F 68 17 104/58 L 96 02/01/23 08:00 02/01/23 08:00 02/01/23 08:00 02/01/23 08:00 02/01/23 08:00 - Physical Exam General: Alert, In no apparent distress, Oriented x3 HEENT: Atraumatic, Normocephalic Neck: Supple, JVD not distended Respiratory: Clear to auscultation bilaterally, on 1L NC Cardiovascular: No edema, atrial fibrillation Gastrointestinal: Normal bowel sounds, abdomen non-distended, Soft, No tenderness, No guarding, No peritonitis Musculoskeletal: No clubbing, No swelling Integumentary: BLE cellulitis dressing clean, dry and intact. Neurological: Normal speech, Normal tone, Normal affect - Studies Laboratory Data - reviewed Microbiology Data -Blood Cultures 01/21: No growth - Stool cultures 01/29: no growth Imagings Data: - CT lower extremity 01/21: "Moderate subcutaneous edematous changes of the lower leg and foot as above. No soft tissue gas. No appreciable fluid collections within limits of noncontrast evaluation." - Venous ultrasound BLE 01/22: "No sonographic evidence of left or right lower extremity deep venous thrombosis." - CT Abdomen 01/28: "Markedly dilated colon, with pneumatosis noted along the cecum and ascending colon. Findings raise concern for colonic ischemia or severe colitis" - KUB 01/29: Diffusely dilated small bowel and colon likely reflecting an ileus. Overall, the findings are little changed compared with 01/28/2023. - KUB abdomen 01/30: "Improved bowel dilatation, particularly of the colon. Mild diffuse small bowel dilatation remains." Medications List Reviewed: Yes Assessment And Plan Problem List - Acute kidney injury - Cellulitis, bilateral lower leg - Congestive Heart Failure - COPD - Coronary Artery Disease - Atrial Fibrillation - Septic Shock Concern for bowel obstruction vs ileus - CT abdomen/pelvis 01/28 revealed pneumatosis in the cecum and ascending colon. There was concern for bowel ischemia. Dr. Freeman general surgery on case who recommended switching antibiotics to Zosyn. KUB 01/30 "Improved bowel dilatation, particularly of the colon. Mild diffuse small bowel dilatation remains." Per general surgery, no evidence of bowel ischemia, continue antibiotic coverage. - KUB XR 01/30: "Improved bowel dilatation, particularly of the colon. Mild diffuse small bowel dilatation remains." - Stool culture negative Cellulitis / Septic shock - Right lower leg cellulitis: continues to improve - Left lower leg cellulitis: continues to improve - Previously on IV cefepime (01/21-01/28) and IV vancomycin (01/21-01/28), d/c by surgery team and was put on Zosyn (01/28-02/01) - wound care - No leukocytosis; afebrile - Pt has been on antibiotics since 01/21 Recommendations - PO Augmentin upon discharge - Cellulitis: continue mupirocin to bilateral lower extremities ID will follow up and monitor for signs of infection Case discussed with Dr. Wright N
[2023-02-01] MEDS: MORPHINE 2 MG/ML SYR IV PRN (13:50)
--- NOTE | 2023-02-01 14:34 | P.DS ---
Admission Date: 01/21/23 Discharge Date: 02/01/23 Disposition: DC HOME/HOME HEALTH CARE Discharge Condition: FAIR Reason for Admission: Septic shock Brief History of Present Illness: Patient is an 82-year-old gentleman who has a history of coronary artery disease with a prior stent placed and a prior history of congestive heart failure with an ejection fraction of 45% who comes into the emergency room with cellulitis of the left and right leg. Patient states that his legs have been getting worse quickly over the last couple of days. He decided to come into the emergency room for further evaluation. He had significant erythema on the left leg. He has a wound on the right leg. Patient already had CT chest abdomen pelvis with no significant abnormalities. Patient states he has had a stent placed in his lower extremity but he does not really remember when it was placed and where it was placed. He does not remember having blood clots in the legs.Patient has a history of atrial fibrillation and coronary artery disease. Patient also with a history of CHF and COPD. Patient was hypotensive in the emergency room and was given IV fluids and started on Levophed. Blood cultures are pending. Patient also with acute on chronic renal insufficiency. Patient's baseline creatinine a couple of years ago was 1.5. Patient's creatinine at this time was up to 3.7. Patient admitted for further management. Hospital Course: Concern for Bowel Obstruction vs possible Ileus improving on KUB serial checks. Patient tolerated clear liquid diet and advanced to solid. Currently asymptomatic, clinically improved and deemed stable for discharge. Septic Shock likely secondary to Bilateral Lower Extremity Cellulitis - improved ID followed Pt treated with IV cefepime/ Vanco and transitioned tp zosyn. Augmentin on discharge recommended by ID. Paroxysmal Atrial Fibrillation with Rapid Ventricular Response/Coronary Artery Disease s/p PCI/Peripheral Artery Disease s/p Femoral-Popliteal Stent Treated with full dose lovenox for anticoagulation. KDIGO Stage II Acute Kidney Injury likely due to Septic Shock - improved Nephrology consulted - recommendations appreciated Creatinine = 3.69 -> 3.49 -> 2.66 -> 1.44 -> 1.42 -> 1.32 -> 1.47 -> 1.24 -> 1.33 -> 1.47 -> 1.56 Urinalysis = 11-20 RBCs, 1+ glucose, trace protein Renal function improved during the hospital stay. 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 Findings may relate to a mild infectious or inflammatory process. Ectasia of the ascending thoracic aorta, measuring 4.2 centimeter in caliber. No acute abnormality in the abdomen and pelvis. Incidentally noted nonobstructing smaller right renal calculi. Other incidental findings as above." - Follow-up with PCP for further evaluation Chronic Compensated Diastolic Congestive Heart Failure - No evidence of acute CHF exacerbation - Transthoracic echocardiogram = "1. very poor study (poor windows) 2. overall, left ventricular ejection fraction appears normal" Chronic Obstructive Pulmonary Disease No evidence of acute COPD exacerbation Vital Signs/Physical Exam: Temp Pulse Resp BP Pulse Ox 97.3 F 67 17 110/57 L 96 02/01/23 12:00 02/01/23 12:00 02/01/23 12:00 02/01/23 12:00 02/01/23 12:00 General: Alert, In no apparent distress, Oriented x3 HEENT: Mucous membr. moist/pink Neck: JVD not distended Respiratory: Clear to auscultation bilaterally, Normal air movement Cardiovascular: No edema, Normal S1 S2 Gastrointestinal: Soft and benign, Non-distended Musculoskeletal: No swelling Integumentary: No rashes Neurological: Normal strength at 5/5 x4 extr Laboratory Data at Discharge: WBC 4.70 thou/uL (4.3-10.9) 02/01/23 03:51 Hgb 11.2 g/dL (13.6-17.9) L 02/01/23 03:51 Hct 33.1 % (39.6-49.0) L 02/01/23 03:51 Plt Count 266 thou/uL (152-406) 02/01/23 03:51 PT 18.7 SECONDS (9.5-12.5) H 01/22/23 04:35 INR 1.70 01/22/23 04:35 APTT 28.7 SECONDS (24.3-36.9) 01/22/23 04:35 Sodium 138 mEq/L (136-145) 01/30/23 05:37 Potassium 4.0 mEq/L (3.5-5.1) 01/30/23 05:37 BUN 29 mg/dL (7-18) H 01/30/23 05:37 Creatinine 1.56 mg/dL (0.70-1.30) H 01/30/23 05:37 Glucose 76 mg/dL (74-106) 01/30/23 05:37 Phosphorus 2.6 mg/dL (2.5-4.9) 01/29/23 05:57 Magnesium 2.1 mg/dL (1.6-2.4) 01/29/23 05:57 Total Bilirubin 0.5 mg/dL (0.2-1.0) 01/23/23 06:30 AST 13 U/L (15-37) L 01/23/23 06:30 ALT 21 U/L (16-61) 01/23/23 06:30 Alkaline Phosphatase 48 U/L (45-117) 01/23/23 06:30 Home Medications: Atorvastatin Calcium [Lipitor*] 10 mg PO BEDTIME 07/24/14 Liraglutide [Victoza 2-Estevan] 1.8 mg SQ DAILY WITH BREAKFAST 07/24/14 Rivaroxaban [Xarelto*] 15 mg PO DAILY 01/21/23 Amiodarone HCl [Cordarone*] 200 mg PO DAILY #30 tab 02/01/23 Amox/Clavulanate [Augmentin 500-125 mg Tab*] 500 mg PO BID #10 tab 02/01/23 Cetirizine HCl [Zyrtec*] 10 mg PO DAILY PRN #30 tab 02/01/23 Fluticasone [Flonase 50MCG Nasal [place]*] 1 sprays DORETHA BID PRN #1 bottle 02/01/23 Furosemide [Lasix*] 20 mg PO BIDL #60 tab 02/01/23 Lidocaine 4% Patch [Lidoderm 5% Patch*] 1 patch TOP BEDTIME #4 pat 02/01/23 Metoprolol Tartrate [Lopressor*] 25 mg PO BID 6AM 6PM #60 tab 02/01/23 Montelukast [Singulair*] 10 mg PO DAILY tab 02/01/23 Mupirocin Oint [Bactroban 2% Ointment*] 1 appl TOP DAILY #1 tube 02/01/23 Potassium Oral Tab [Klor-Con 10 mEq Tab*] 20 meq PO DAILY #60 tab 02/01/23 New Medications: Amox/Clavulanate [Augmentin 500-125 mg Tab*] 500 mg PO BID #10 tab Mupirocin Oint [Bactroban 2% Ointment*] 1 appl TOP DAILY #1 tube Amiodarone HCl [Cordarone*] 200 mg PO DAILY #30 tab Fluticasone [Flonase 50MCG Nasal [place]*] 1 sprays DORETHA BID PRN #1 bottle PRN Reason: Allergies Potassium Oral Tab [Klor-Con 10 mEq Tab*] 20 meq PO DAILY #60 tab Furosemide [Lasix*] 20 mg PO BIDL #60 tab Lidocaine 4% Patch [Lidoderm 5% Patch*] 1 patch TOP BEDTIME #4 pat Metoprolol Tartrate [Lopressor*] 25 mg PO BID 6AM 6PM #60 tab Cetirizine HCl [Zyrtec*] 10 mg PO DAILY PRN #30 tab PRN Reason: Allergies Diet: ADA Activity: Ad jonnathan Followup: Leonid Freeman MD [ACTIVE - CAN ADMIT] - 1-2 Weeks NONE,NONE [Primary Care Provider] - 1-2 Weeks Time spent managing pt's care (in minutes): 39
[2023-02-01 16:01] VITALS: BP 115/59; TEMP 97.2
[2023-02-01] MEDS ORDERED: AMOX/K CLAV 500 MG TAB PO SCH (21:00)
[2023-02-01] MEDS ORDERED: LIDOCAINE 4% PATCH TOP SCH (21:00)
--- NOTE | 2023-02-01 22:10 | P.PN ---
Date of Service: 02/01/23 Vital Signs Temp Pulse Resp BP Pulse Ox 97.2 F 69 17 115/59 L 96 02/01/23 16:00 02/01/23 16:00 02/01/23 16:00 02/01/23 16:00 02/01/23 16:00 Microbiology Results 01/21/23 12:48 Blood - Blood Aerobic Blood Culture - Final No growth in 5 days. 01/21/23 12:48 Blood - Blood Anaerobic Blood Culture - Final No growth in 5 days. 01/21/23 12:00 Blood - Blood Aerobic Blood Culture - Final No growth in 5 days. 01/21/23 12:00 Blood - Blood Anaerobic Blood Culture - Final No growth in 5 days. Assessment/ Plan: Nephrology No dyspnea No chest pain +BM +UO Feeling better Back Pain No acute events overnight Vitals, medications, blood work and imaging reviewed in the chart. NAD. NCAT. Obese. MMM. Neck supple. Normal respiratory effort. RRR. ND NT Abd. No C/C. Edema none. LE wounds. AAO. Normal speech. LEFT VENTRICULAR WALL MOTION: UNABLE TO EVALUATE DUE TO POOR WINDOWS DOPPLER/COLOR FLOW: MILD TRICUSPID REGURGITATION COMMENTS: 1. VERY POOR STUDY (POOR WINDOWS) 2. OVERALL, LEFT VENTRICULAR EJECTION FRACTION APPEARS NORMAL EXAM DESCRIPTION: CT - Chest Abd Pelvis Wo Con - 01/21/2023 2:07 pm CLINICAL HISTORY: weakness. Shortness of breath. Hypotension COMPARISON: Chest Single View dated 01/21/2023 TECHNIQUE: Noncontrast thin axial CT images of the chest, abdomen, and pelvis were performed. Multiplanar reformats were generated and reviewed. All CT scans are performed using dose optimization technique as appropriate and may include automated exposure control or mA/KV adjustment according to patient size. FINDINGS: The lungs show no focal consolidation. Bibasilar platelike atelectasis. Scattered peripheral predominantly ground-glass small nodules and tree-in-bud opacities, the largest in the upper segment right lower lobe, series 201, image 34, and in the anterior left upper lobe, image 32.No pleural or pericardial effusion.No intrathoracic adenopathy. Ectasia of the ascending thoracic aorta measuring 4.2 centimeter in caliber. The liver, spleen, pancreas, and adrenal glands are within normal limits. No hydroureteronephrosis. Right mid and lower pole punctate radiodensities, the largest measuring 4 millimeter at the right midpole. 2.2 centimeter right lower lobe cystic lesion. No bowel obstruction, free air, free fluid or abscess. Normal appendix. No pathologic lymphadenopathy in the abdomen or pelvis. Urinary bladder is decompressed with Barajas catheter in place. No worrisome osseous finding. Lobulated densities in the right shoulder periarticular region, could relate to osteochondromatosis. IMPRESSION: Scattered peripheral micro nodules and tree-in-bud opacities as above. Findings may relate to a mild infectious or inflammatory process. Ectasia of the ascending thoracic aorta, measuring 4.2 centimeter in caliber No acute abnormality in the abdomen and pelvis. Stage II SANCHEZ CKD III with proteinuria -No NSAIDs Hypokalemia -Replete prn HTN with CKD/ CHF -Continue Metoprolol Diastolic CHF, chronic -Daily weight -Low sodium diet -Continue furosemide DM II with CKD -RISS prn Anemia in chronic illness -Monitor H&H Septic Shock BL LE Cellulitis -Continue abx Pneumatosis coli, improving -Surgery following Case reviewed with Dr. Nunez
[2023-02-02] MEDS ORDERED: AMIODARONE HCL 200 MG TAB PO SCH (09:00)
== END 2023-02-01 19:16 | disposition home health service (06) | DRG 871 ==
LOC: ER 11:25 → ERHOLD 16:53 → 3RD-ICU 18:06 → 4TH 01-27 16:50
PROVIDERS: ADMIT Hospitalist; ATTEND Internal Medicine
DX: A41.9 Sepsis, unspecified organism (principal); R65.21 Severe sepsis with septic shock; L03.116 Cellulitis of left lower limb; L03.115 Cellulitis of right lower limb; N17.9 Acute kidney failure, unspecified; I50.32 Chronic diastolic (congestive) heart failure; I13.0 Hypertensive heart and chronic kidney disease with heart failure and stage 1 through stage 4 chronic kidney disease, or unspecified chronic kidney disease; K59.39 Other megacolon; K56.609 Unspecified intestinal obstruction, unspecified as to partial versus complete obstruction; K56.7 Ileus, unspecified; N18.30 Chronic kidney disease, stage 3 unspecified; E11.22 Type 2 diabetes mellitus with diabetic chronic kidney disease; E11.65 Type 2 diabetes mellitus with hyperglycemia; E11.51 Type 2 diabetes mellitus with diabetic peripheral angiopathy without gangrene; D63.1 Anemia in chronic kidney disease; J44.9 Chronic obstructive pulmonary disease, unspecified; E87.6 Hypokalemia; D16.01 Benign neoplasm of scapula and long bones of right upper limb; I48.0 Paroxysmal atrial fibrillation; K63.89 Other specified diseases of intestine; J98.4 Other disorders of lung; I77.810 Thoracic aortic ectasia; I25.10 Atherosclerotic heart disease of native coronary artery without angina pectoris; I25.2 Old myocardial infarction; T38.0X5A Adverse effect of glucocorticoids and synthetic analogues, initial encounter; R31.29 Other microscopic hematuria; R91.8 Other nonspecific abnormal finding of lung field; Z88.5 Allergy status to narcotic agent; Z95.5 Presence of coronary angioplasty implant and graft; Z79.84 Long term (current) use of oral hypoglycemic drugs; Z79.01 Long term (current) use of anticoagulants; Z79.899 Other long term (current) drug therapy; Z91.048 Other nonmedicinal substance allergy status; Z87.891 Personal history of nicotine dependence; Z20.822 Contact with and (suspected) exposure to COVID-19
CPT/HCPCS: 0240U; 36415; 51702; 71045; 71250; 73700; 74018; 74176; 76377; 80048; 80053; 80076; 80202; 81001; 82533; 82607; 83540; 83605; 83735; 83880; 84100; 84145; 84439; 84443; 84484; 85014; 85018; 85025; 85044; 85610; 85730; 87040; 87045; 87046; 87177; 87209; 87324; 89055; 93005; 93306; 93970; 96361; 96365; 96366; 96367; 96368; 97110; 97116; 97161; 97530; 99285; J0282; J0692; J0696; J1160; J1650; J1720; J2001; J2270; J2543; J3010; J7030; J7040; J7050; J7060; P9047

== ENCOUNTER 2023-04-23 09:46 | Emergency (ER) | payer OTHER ==
--- OUTSIDE RECORDS SUMMARY | 2023-04-23 10:02 | XMS REPORT | Continuity of Care Document ---
:1940 Author Organization [facility] t Address [address] [place] [address] [place] [id number] Care Team Providers Name Role Phone Luis Dean MD Primary Care Physician LUIS EDAN Attending Clinician Unavailable Lusi Dean MD Attending Clinician Lab, Ang - Db Attending Clinician Unavailable Doctor Unassigned, [place] Attending Clinician Unavailable GER STEIN Attending Clinician Unavailable GENA MÉNDEZ Attending Clinician Unavailable GENA MÉNDEZ Attending Clinician Unavailable Marly Guevara LMSW Attending Clinician Ger Stein MD Attending Clinician PATRICIA GARCIA Attending Clinician Unavailable Patricia Vásquez Attending Clinician KORINA CRAWFORD Attending Clinician Unavailable Lorin Valencia Attending Clinician Korina Crawford MD Attending Clinician Ashlee Moore MD Attending Clinician Kay Bradford RN Attending Clinician Unavailable Carlos JANG, Sergei Gage Attending Clinician [phone] Melecio Carrion MD Attending Clinician Sudarshan Gray MD Attending Clinician [phone] SUDARSHAN GRAY Attending Clinician Unavailable Jcarlos JANG, Gil Klein Attending Clinician Cristopher Gamez DO Attending Clinician Carole CUSTODIAL ENGINEER, Tereso Attending Clinician TERESO LAM Attending Clinician Unavailable TONY NORTON Attending Clinician Unavailable Nurse, Adc Pob Immunization Attending Clinician Unavailable Tony Norton DO Attending Clinician Lab, Adc Fam Pob I Attending Clinician Unavailable Nurse, [facility] Attending Clinician Unavailable NARENDRA BENNETT Attending Clinician Unavailable Benji RN, Elizabeth Attending Clinician Unavailable Kiet CUSTODIAL ENGINEER, Anu Attending Clinician KORINA CRAWFORD Admitting Clinician Unavailable Ty JANG, Korina Admitting Clinician Carlos JANG, Sergei Gage Admitting Clinician [phone] SERGEI ARELLANO Admitting Clinician Unavailable Payers Payer Name Policy Type Policy Number Effective Date Expiration Date S ource [facility] [id number] 2021 [facility] [place] 00:[place]:00 P[place] [facility] [id number] 2020 GENERIC 00:00:00 Problems Condition Condition Condition Status Onset Resolution Last Treating Co mments Source Name Details Category Date Date Treatment Clinician Date Lipoma of Lipoma of Disease Active 2021-10 Overview: Univers scalp scalp 1-24 Formattin ity of 00:00: g of this [place] 00 note Medical might be Branch different from the original. 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 Added automatic ally from request for surgery [id number] Elevated Elevated Disease Active 2016-10 Unive rs [...] bowel bowel 00:00: [place] syndrome) syndrome) 00 [facility] Branch Hyperplasi Hyperplasi Disease Active U nivers [...] 00:00: [place] reaction 00 Medical s Branch Social History Social Habit Start Date Stop Date Quantity Comments Source History SDMO University o f Alcohol Frequency [facility] edical Branch History SDMO University o f Alcohol Std Drinks [place] Medical Branch History SDMO University o f Alcohol Binge [facility] al Branch Exposure to 2023-01-29 2023-02-08 Not sure University SARS-CoV-2 (event) 00:00:00 11:54:00 [facility] Alcohol intake 2023-02-08 2023-02-08 .71 /d University of 00:00:00 00:00:00 [facility] Alcohol Comment 2021-08-04 2021-08-04 3 glass of wine Univ ersity of 00:00:00 00:00:00 with dinner [facility] Cigarettes smoked 2021-08-04 2021-08-04 Univers ity of current (pack per 00:00:00 00:00:00 [facility] ) - Reported Branch Cigarette 2021-08-04 2021-08-04 University of pack-years 00:00:00 00:00:00 [facility] Tobacco use and 2021-08-04 2021-08-04 Smokeless Universit y of exposure 00:00:00 00:00:00 tobacco non-user [facility] History of tobacco 1989-11-18 Cigarette Smoker University of use 00:00:00 [facility] Sex [birth year] At [birth year] Universit y of 00:00:00 00:00:00 [facility] Smoking Status Start Date Stop Date Source Ex-smoker 2021-08-04 00:00:00 2021-08-04 00:00:00 Universi ty of [facility] Medications Ordered Filled Start Stop Current Ordering Indication Dosage Frequency Signature Comments Components Source Medication Medication Date Date Medication? Clinician (SIG) Name Name potassium Yes [id number] 10meq Take 1 U nivers chloride 6-20 tablet by ity of (KLOR-CON [place] 10 [place] 00 the Medical CR tablet morning. Branch losartan 25 Yes TAKE 1 Univ ers mg tablet 6-08 TABLET BY ity o f 00:00: MOUTH [place] 00 EVERY DAY Medical FOR 90 Branch DAYS aspirin 81 2023-0 Yes 81mg Take 1 Unive rs mg chewable 4-27 tablet by ity of tablet 13:03: mouth in [place] [address] the Medical morning. Branch rivaroxaban 2023-0 Yes 15mg Take 1 Univ ers 15 mg 4-27 tablet by ity of tablet 13:03: mouth in [place] [address] the Medical morning. Branch aspirin 81 2023-0 Yes 81mg Take 1 Unive rs mg chewable 4-27 tablet by ity of tablet 13:03: mouth in [place] [address] the Medical morning. Branch rivaroxaban 2023-0 Yes 15mg Take 1 Univ ers 15 mg 4-27 tablet by ity of tablet 13:03: mouth in [place] [address] the Medical morning. Branch aspirin 81 2023-0 Yes 81mg Take 1 Unive rs mg chewable 4-27 tablet by ity of tablet 13:03: mouth in [place] [address] the Medical morning. Branch rivaroxaban 2023-0 Yes 15mg Take 1 Univ ers 15 mg 4-27 tablet by ity of tablet 13:03: mouth in [place] [address] the Medical morning. Branch aspirin 81 2023-0 Yes 81mg Take 1 Unive rs mg chewable 4-27 tablet by ity of tablet 13:03: mouth in [place] [address] the Medical morning. Branch rivaroxaban 2023-0 Yes 15mg Take 1 Univ ers 15 mg 4-27 tablet by ity of tablet 13:03: mouth in [place] [address] the Medical morning. Branch aspirin 81 2023-0 Yes 81mg Take 1 Unive rs mg chewable 4-27 tablet by ity of tablet 13:03: mouth in [place] [address] the Medical morning. Branch rivaroxaban 2023-0 Yes 15mg Take 1 Univ ers 15 mg 4-27 tablet by ity of tablet 13:03: mouth in [place] [address] the Medical morning. Branch aspirin 81 2023-0 Yes 81mg Take 1 Unive rs mg chewable 4-27 tablet by ity of tablet 13:03: mouth in [place] [address] the Medical morning. Branch rivaroxaban 2023-0 Yes 15mg Take 1 Univ ers 15 mg 4-27 tablet by ity of tablet 13:03: mouth in [place] [address] the Medical morning. Branch aspirin 81 2023-0 Yes 81mg Take 1 Unive rs mg chewable 4-27 tablet by ity of tablet 13:03: mouth in [place] [address] the Medical morning. Branch rivaroxaban 2023-0 Yes 15mg Take 1 Univ ers 15 mg 4-27 tablet by ity of tablet 13:03: mouth in [place] [address] the Medical morning. Branch aspirin 81 2023-0 Yes 81mg Take 1 Unive rs mg chewable 4-27 tablet by ity of tablet 13:03: mouth in [place] [address] the Medical morning. Branch rivaroxaban 2023-0 Yes 15mg Take 1 Univ ers 15 mg 4-27 tablet by ity of tablet 13:03: mouth in [place] [address] the Medical morning. Branch aspirin 81 2023-0 Yes 81mg Take 1 Unive rs mg chewable 4-27 tablet by ity of tablet 13:03: mouth in [place] [address] the Medical morning. Branch rivaroxaban 2023-0 Yes 15mg Take 1 Univ ers 15 mg 4-27 tablet by ity of tablet 13:03: mouth in [place] [address] the Medical morning. Branch aspirin 81 2023-0 Yes 81mg Take 1 Unive rs mg chewable 4-27 tablet by ity of tablet 13:03: mouth in [place] [address] the Medical morning. Branch rivaroxaban 2023-0 Yes 15mg Take 1 Univ ers 15 mg 4-27 tablet by ity of tablet 13:03: mouth in [place] [address] the Medical morning. Branch aspirin 81 2023-0 Yes 81mg Take 1 Unive rs mg chewable 4-27 tablet by ity of tablet 13:03: mouth in [place] [address] the Medical morning. Branch rivaroxaban 2023-0 Yes 15mg Take 1 Univ ers 15 mg 4-27 tablet by ity of tablet 13:03: mouth in [place] [address] the Medical morning. Branch aspirin 81 2023-0 Yes 81mg Take 1 Unive rs mg chewable 4-27 tablet by ity of tablet 13:03: mouth in [place] [address] the Medical morning. Branch rivaroxaban 2023-0 Yes 15mg Take 1 Univ ers 15 mg 4-27 tablet by ity of tablet 13:03: mouth in [place] [address] the Medical morning. Branch aspirin 81 2023-0 Yes 81mg Take 1 Unive rs mg chewable 4-27 tablet by ity of tablet 13:03: mouth in [place] [address] the Medical morning. Branch rivaroxaban 2023-0 Yes 15mg Take 1 Univ ers 15 mg 4-27 tablet by ity of tablet 13:03: mouth in [place] 56 the Medical morning. Branch KLOR-CON 10 2022-0 2023- No 10meq Take 1 Un kathy 10 mEq CR 4-20 06-20 tablet by ity of tablet 00:00: 00:00 mouth in [place] 00 :00 the Medical morning. Branch mupirocin 2 2022-0 Yes [id number] Apply to Univers % ointment 3-29 area(s) 3 ity of 00:00: (three) [place] 00 times Medical daily. Branch mupirocin 2 2022-0 Yes [id number] Apply to Univers % ointment 3-29 area(s) 3 ity of 00:00: (three) [place] 00 times Medical daily. Branch mupirocin 2 2022-0 Yes [id number] Apply to Univers % ointment 3-29 area(s) 3 ity of 00:00: (three) [place] 00 times Medical daily. Branch mupirocin 2 2022-0 Yes [id number] Apply to Univers % ointment 3-29 area(s) 3 ity of 00:00: (three) [place] 00 times Medical daily. Branch mupirocin 2 2022-0 Yes [id number] Apply to Univers % ointment 3-29 area(s) 3 ity of 00:00: (three) [place] 00 times Medical daily. Branch mupirocin 2 2022-0 Yes [id number] Apply to Univers % ointment 3-29 area(s) 3 ity of 00:00: (three) [place] 00 times Medical daily. Branch mupirocin 2 2022-0 Yes [id number] Apply to Univers % ointment 3-29 area(s) 3 ity of 00:00: (three) [place] 00 times Medical daily. Branch mupirocin 2 2022-0 Yes [id number] Apply to Univers % ointment 3-29 area(s) 3 ity of 00:00: (three) [place] 00 times Medical daily. Branch mupirocin 2 2022-0 Yes [id number] Apply to Univers % ointment 3-29 area(s) 3 ity of 00:00: (three) [place] 00 times Medical daily. Branch mupirocin 2 2022-0 Yes [id number] Apply to Univers % ointment 3-29 area(s) 3 ity of 00:00: (three) [place] 00 times Medical daily. Branch mupirocin 2 2023-0 Yes [id number] Apply to Univers % ointment 3-29 area(s) 3 ity of 00:00: (three) [place] 00 times Medical daily. Branch mupirocin 2 3-0 Yes [id number] Apply to Univers % ointment 3-29 area(s) 3 ity of 00:00: (three) [place] 00 times Medical daily. Branch mupirocin 2 2023-0 Yes [id number] Apply to Univers % ointment 3-29 area(s) 3 ity of 00:00: (three) [place] 00 times Medical daily. Branch mupirocin 2 2023-0 Yes [id number] Apply to Univers % ointment 3-29 area(s) 3 ity of 00:00: (three) [place] 00 times Medical daily. Branch mupirocin 2 3-0 Yes [id number] Apply to Univers % ointment 3-29 area(s) 3 ity of 00:00: (three) [place] 00 times Medical daily. Branch mupirocin 2 3-0 Yes [id number] Apply to Univers % ointment 3-29 area(s) 3 ity of 00:00: (three) [place] 00 times Medical daily. Branch mupirocin 2 3-0 Yes [id number] Apply to Univers % ointment 3-29 area(s) 3 ity of 00:00: (three) [place] 00 times Medical daily. Branch mupirocin 2 2023-0 Yes [id number] Apply to Univers % ointment 3-29 area(s) 3 ity of 00:00: (three) [place] 00 times Medical daily. Branch mupirocin 2 2023-0 Yes [id number] Apply to Univers % ointment 3-29 area(s) 3 ity of 00:00: (three) [place] 00 times Medical daily. Branch mupirocin 2 2023-0 Yes [id number] Apply to Univers % ointment 3-29 area(s) 3 ity of 00:00: (three) [place] 00 times Medical daily. Branch mupirocin 2 2023-0 Yes [id number] Apply to Univers % ointment 3-29 area(s) 3 ity of 00:00: (three) [place] 00 times Medical daily. Branch mupirocin 2 3-0 Yes [id number] Apply to Univers % ointment 3-29 area(s) 3 ity of 00:00: (three) [place] 00 times Medical daily. Branch mupirocin 2 3-0 Yes [id number] Apply to Univers % ointment 3-29 area(s) 3 ity of 00:00: (three) [place] 00 times Medical daily. Branch mupirocin 2 3-0 Yes [id number] Apply to Univers % ointment 3-29 area(s) 3 ity of 00:00: (three) [place] 00 times Medical daily. Branch mupirocin 2 3-0 Yes [id number] Apply to Univers % ointment 3-29 area(s) 3 ity of 00:00: (three) [place] 00 times Medical daily. Branch mupirocin 2 3-0 Yes [id number] Apply to Univers % ointment 3-29 area(s) 3 ity of 00:00: (three) [place] 00 times Medical daily. Branch albuterol 2022-0 Yes [id number] 2{puff} Inhale 2 Univers (VENTOLIN 3-16 Puffs ity of HFA) 90 00:00: every 6 [place] mcg/actuati 00 (six) Medical on inhaler hours as Branc h needed for Wheezing or Shortness of Breath. albuterol 2022-0 Yes [id number] 2{puff} Inhale 2 Univers (VENTOLIN 3-16 Puffs ity of HFA) 90 00:00: every 6 [place] mcg/actuati 00 (six) Medical on inhaler hours as Branc h needed for Wheezing or Shortness of Breath. albuterol 2022-0 Yes [id number] 2{puff} Inhale 2 Univers (VENTOLIN 3-16 Puffs ity of HFA) 90 00:00: every 6 [place] mcg/actuati 00 (six) Medical on inhaler hours as Branc h needed for Wheezing or Shortness of Breath. albuterol 2022-0 Yes [id number] 2{puff} Inhale 2 Univers (VENTOLIN 3-16 Puffs ity of HFA) 90 00:00: every 6 [place] mcg/actuati 00 (six) Medical on inhaler hours as Branc h needed for Wheezing or Shortness of Breath. albuterol 2022-0 Yes [id number] 2{puff} Inhale 2 Univers (VENTOLIN 3-16 Puffs ity of HFA) 90 00:00: every 6 [place] mcg/actuati 00 (six) Medical on inhaler hours as Branc h needed for Wheezing or Shortness of Breath. albuterol 2022-0 Yes [id number] 2{puff} Inhale 2 Univers (VENTOLIN 3-16 Puffs ity of HFA) 90 00:00: every 6 [place] mcg/actuati 00 (six) Medical on inhaler hours as Branc h needed for Wheezing or Shortness of Breath. albuterol 2022-0 Yes [id number] 2{puff} Inhale 2 Univers (VENTOLIN 3-16 Puffs ity of HFA) 90 00:00: every 6 [place] mcg/actuati 00 (six) Medical on inhaler hours as Branc h needed for Wheezing or Shortness of Breath. albuterol 2022-0 Yes [id number] 2{puff} Inhale 2 Univers (VENTOLIN 3-16 Puffs ity of HFA) 90 00:00: every 6 [place] mcg/actuati 00 (six) Medical on inhaler hours as Branc h needed for Wheezing or Shortness of Breath. albuterol 2022-0 Yes [id number] 2{puff} Inhale 2 Univers (VENTOLIN 3-16 Puffs ity of HFA) 90 00:00: every 6 [place] mcg/actuati 00 (six) Medical on inhaler hours as Branc h needed for Wheezing or Shortness of Breath. albuterol 2022-0 Yes [id number] 2{puff} Inhale 2 Univers (VENTOLIN 3-16 Puffs ity of HFA) 90 00:00: every 6 [place] mcg/actuati 00 (six) Medical on inhaler hours as Branc h needed for Wheezing or Shortness of Breath. albuterol 2022-0 Yes [id number] 2{puff} Inhale 2 Univers (VENTOLIN 3-16 Puffs ity of HFA) 90 00:00: every 6 [place] mcg/actuati 00 (six) Medical on inhaler hours as Branc h needed for Wheezing or Shortness of Breath. albuterol 2022-0 Yes [id number] 2{puff} Inhale 2 Univers (VENTOLIN 3-16 Puffs ity of HFA) 90 00:00: every 6 [place] mcg/actuati 00 (six) Medical on inhaler hours as Branc h needed for Wheezing or Shortness of Breath. albuterol 2022-0 Yes [id number] 2{puff} Inhale 2 Univers (VENTOLIN 3-16 Puffs ity of HFA) 90 00:00: every 6 [place] mcg/actuati 00 (six) Medical on inhaler hours as Branc h needed for Wheezing or Shortness of Breath. albuterol 2022-0 Yes [id number] 2{puff} Inhale 2 Univers (VENTOLIN 3-16 Puffs ity of HFA) 90 00:00: every 6 [place] mcg/actuati 00 (six) Medical on inhaler hours as Branc h needed for Wheezing or Shortness of Breath. albuterol 2022-0 Yes [id number] 2{puff} Inhale 2 Univers (VENTOLIN 3-16 Puffs ity of HFA) 90 00:00: every 6 [place] mcg/actuati 00 (six) Medical on inhaler hours as Branc h needed for Wheezing or Shortness of Breath. albuterol 2022-0 Yes [id number] 2{puff} Inhale 2 Univers (VENTOLIN 3-16 Puffs ity of HFA) 90 00:00: every 6 [place] mcg/actuati 00 (six) Medical on inhaler hours as Branc h needed for Wheezing or Shortness of Breath. albuterol 2022-0 Yes [id number] 2{puff} Inhale 2 Univers (VENTOLIN 3-16 Puffs ity of HFA) 90 00:00: every 6 [place] mcg/actuati 00 (six) Medical on inhaler hours as Branc h needed for Wheezing or Shortness of Breath. albuterol 2022-0 Yes [id number] 2{puff} Inhale 2 Univers (VENTOLIN 3-16 Puffs ity of HFA) 90 00:00: every 6 [place] mcg/actuati 00 (six) Medical on inhaler hours as Branc h needed for Wheezing or Shortness of Breath. albuterol 2022-0 Yes [id number] 2{puff} Inhale 2 Univers (VENTOLIN 3-16 Puffs ity of HFA) 90 00:00: every 6 [place] mcg/actuati 00 (six) Medical on inhaler hours as Branc h needed for Wheezing or Shortness of Breath. albuterol 2022-0 Yes [id number] 2{puff} Inhale 2 Univers (VENTOLIN 3-16 Puffs ity of HFA) 90 00:00: every 6 [place] mcg/actuati 00 (six) Medical on inhaler hours as Branc h needed for Wheezing or Shortness of Breath. albuterol 2022-0 Yes [id number] 2{puff} Inhale 2 Univers (VENTOLIN 3-16 Puffs ity of HFA) 90 00:00: every 6 [place] mcg/actuati 00 (six) Medical on inhaler hours as Branc h needed for Wheezing or Shortness of Breath. albuterol 2022-0 Yes [id number] 2{puff} Inhale 2 Univers (VENTOLIN 3-16 Puffs ity of HFA) 90 00:00: every 6 [place] mcg/actuati 00 (six) Medical on inhaler hours as Branc h needed for Wheezing or Shortness of Breath. albuterol 2022-0 Yes [id number] 2{puff} Inhale 2 Univers (VENTOLIN 3-16 Puffs ity of HFA) 90 00:00: every 6 [place] mcg/actuati 00 (six) Medical on inhaler hours as Branc h needed for Wheezing or Shortness of Breath. albuterol 2022-0 Yes [id number] 2{puff} Inhale 2 Univers (VENTOLIN 3-16 Puffs ity of HFA) 90 00:00: every 6 [place] mcg/actuati 00 (six) Medical on inhaler hours as Branc h needed for Wheezing or Shortness of Breath. albuterol 2022-0 Yes [id number] 2{puff} Inhale 2 Univers (VENTOLIN 3-16 Puffs ity of HFA) 90 00:00: every 6 [place] mcg/actuati 00 (six) Medical on inhaler hours as Branc h needed for Wheezing or Shortness of Breath. albuterol 2022-0 Yes [id number] 2{puff} Inhale 2 Univers (VENTOLIN 3-16 Puffs ity of HFA) 90 00:00: every 6 [place] mcg/actuati 00 (six) Medical on inhaler hours as Branc h needed for Wheezing or Shortness of Breath. albuterol 2022-0 Yes [id number] 2{puff} Inhale 2 Univers (VENTOLIN 3-16 Puffs ity of HFA) 90 00:00: every 6 [place] mcg/actuati 00 (six) Medical on inhaler hours as Branc h needed for Wheezing or Shortness of Breath. albuterol 2022-0 Yes [id number] 2{puff} Inhale 2 Univers (VENTOLIN 3-16 Puffs ity of HFA) 90 00:00: every 6 [place] mcg/actuati 00 (six) Medical on inhaler hours as Branc h needed for Wheezing or Shortness of Breath. glimepiride 2022-0 Yes [id number] 1mg Take 1 Univers 1 mg tablet 2-08 tablet by ity of 00:00: mouth in [place] 00 the Medical morning. Branch liraglutide Yes [id number] INJECT 1.8 Univers (VICTOZA 2-08 MG UNDER ity of 3-CLARA) 0.6 00:00: THE SKIN [place] mg/0.1 mL 00 ONCE DAILY Medi josep (18 mg/3 EVERY Branch mL) MORNING injection glimepiride 0 Yes [id number] 1mg Take 1 Univers 1 mg tablet 2-08 tablet by ity of 00:00: mouth in [place] the Medical morning. Branch liraglutide 2022-0 Yes [id number] INJECT 1.8 Univers (VICTOZA 2-08 MG UNDER ity of 3-CLARA) 0.6 00:00: THE SKIN [place] mg/0.1 mL 00 ONCE DAILY Medi josep (18 mg/3 EVERY Branch mL) MORNING injection glimepiride 2022-0 Yes [id number] 1mg Take 1 Univers 1 mg tablet 2-08 tablet by ity of 00:00: mouth in [place] the Medical morning. Branch liraglutide 2022-0 Yes [id number] INJECT 1.8 Univers (VICTOZA 2-08 MG UNDER ity of 3-CLARA) 0.6 00:00: THE SKIN [place] mg/0.1 mL 00 ONCE DAILY Medi josep (18 mg/3 EVERY Branch mL) MORNING injection glimepiride 2022-0 Yes [id number] 1mg Take 1 Univers 1 mg tablet 2-08 tablet by ity of 00:00: mouth in [place] the Medical morning. Branch liraglutide 2022-0 Yes [id number] INJECT 1.8 Univers (VICTOZA 2-08 MG UNDER ity of 3-CLARA) 0.6 00:00: THE SKIN [place] mg/0.1 mL 00 ONCE DAILY Medi josep (18 mg/3 EVERY Branch mL) MORNING injection glimepiride 2022-0 Yes [id number] 1mg Take 1 Univers 1 mg tablet 2-08 tablet by ity of 00:00: mouth in [place] the Medical morning. Branch liraglutide 2022-0 Yes [id number] INJECT 1.8 Univers (VICTOZA 2-08 MG UNDER ity of 3-CLARA) 0.6 00:00: THE SKIN [place] mg/0.1 mL 00 ONCE DAILY Medi josep (18 mg/3 EVERY Branch mL) MORNING injection glimepiride 2022-0 Yes [id number] 1mg Take 1 Univers 1 mg tablet 2-08 tablet by ity of 00:00: mouth in [place] the Medical morning. Branch liraglutide 2022-0 Yes [id number] INJECT 1.8 Univers (VICTOZA 2-08 MG UNDER ity of 3-CLARA) 0.6 00:00: THE SKIN [place] mg/0.1 mL 00 ONCE DAILY Medi josep (18 mg/3 EVERY Branch mL) MORNING injection glimepiride 2022-0 Yes [id number] 1mg Take 1 Univers 1 mg tablet 2-08 tablet by ity of 00:00: mouth in [place] the Medical morning. Branch liraglutide 2022-0 Yes [id number] INJECT 1.8 Univers (VICTOZA 2-08 MG UNDER ity of 3-CLARA) 0.6 00:00: THE SKIN [place] mg/0.1 mL 00 ONCE DAILY Medi josep (18 mg/3 EVERY Branch mL) MORNING injection glimepiride 2022-0 Yes [id number] 1mg Take 1 Univers 1 mg tablet 2-08 tablet by ity of 00:00: mouth in [place] the Medical morning. Branch liraglutide 2022-0 Yes [id number] INJECT 1.8 Univers (VICTOZA 2-08 MG UNDER ity of 3-CLARA) 0.6 00:00: THE SKIN [place] mg/0.1 mL 00 ONCE DAILY Medi josep (18 mg/3 EVERY Branch mL) MORNING injection glimepiride 2022-0 Yes [id number] 1mg Take 1 Univers 1 mg tablet 2-08 tablet by ity of 00:00: mouth in [place] the Medical morning. Branch liraglutide 2022-0 Yes [id number] INJECT 1.8 Univers (VICTOZA 2-08 MG UNDER ity of 3-CLARA) 0.6 00:00: THE SKIN [place] mg/0.1 mL 00 ONCE DAILY Medi josep (18 mg/3 EVERY Branch mL) MORNING injection glimepiride 2022-0 Yes [id number] 1mg Take 1 Univers 1 mg tablet 2-08 tablet by ity of 00:00: mouth in [place] the Medical morning. Branch liraglutide 2022-0 Yes [id number] INJECT 1.8 Univers (VICTOZA 2-08 MG UNDER ity of 3-CLARA) 0.6 00:00: THE SKIN [place] mg/0.1 mL 00 ONCE DAILY Medi josep (18 mg/3 EVERY Branch mL) MORNING injection glimepiride 2022-0 Yes [id number] 1mg Take 1 Univers 1 mg tablet 2-08 tablet by ity of 00:00: mouth in [place] the Medical morning. Branch liraglutide 2022-0 Yes [id number] INJECT 1.8 Univers (VICTOZA 2-08 MG UNDER ity of 3-CLARA) 0.6 00:00: THE SKIN [place] mg/0.1 mL 00 ONCE DAILY Medi josep (18 mg/3 EVERY Branch mL) MORNING injection glimepiride 2022-0 Yes [id number] 1mg Take 1 Univers 1 mg tablet 2-08 tablet by ity of 00:00: mouth in [place] the Medical morning. Branch liraglutide 2022-0 Yes [id number] INJECT 1.8 Univers (VICTOZA 2-08 MG UNDER ity of 3-CLARA) 0.6 00:00: THE SKIN [place] mg/0.1 mL 00 ONCE DAILY Medi josep (18 mg/3 EVERY Branch mL) MORNING injection glimepiride 2022-0 Yes [id number] 1mg Take 1 Univers 1 mg tablet 2-08 tablet by ity of 00:00: mouth in [place] the Medical morning. Branch liraglutide 2023-0 Yes [id number] INJECT 1.8 Univers (VICTOZA 2-08 MG UNDER ity of 3-CLARA) 0.6 00:00: THE SKIN [place] mg/0.1 mL 00 ONCE DAILY Medi josep (18 mg/3 EVERY Branch mL) MORNING injection glimepiride 2022-0 Yes [id number] 1mg Take 1 Univers 1 mg tablet 2-08 tablet by ity of 00:00: mouth in [place] the Medical morning. Branch liraglutide 2022-0 Yes [id number] INJECT 1.8 Univers (VICTOZA 2-08 MG UNDER ity of 3-CLARA) 0.6 00:00: THE SKIN [place] mg/0.1 mL 00 ONCE DAILY Medi josep (18 mg/3 EVERY Branch mL) MORNING injection glimepiride 2022-0 Yes [id number] 1mg Take 1 Univers 1 mg tablet 2-08 tablet by ity of 00:00: mouth in [place] the Medical morning. Branch liraglutide 2022-0 Yes [id number] INJECT 1.8 Univers (VICTOZA 2-08 MG UNDER ity of 3-CLARA) 0.6 00:00: THE SKIN [place] mg/0.1 mL 00 ONCE DAILY Medi josep (18 mg/3 EVERY Branch mL) MORNING injection glimepiride 2022-0 Yes [id number] 1mg Take 1 Univers 1 mg tablet 2-08 tablet by ity of 00:00: mouth in [place] the Medical morning. Branch liraglutide 2022-0 Yes [id number] INJECT 1.8 Univers (VICTOZA 2-08 MG UNDER ity of 3-CLARA) 0.6 00:00: THE SKIN [place] mg/0.1 mL 00 ONCE DAILY Medi josep (18 mg/3 EVERY Branch mL) MORNING injection glimepiride 2022-0 Yes [id number] 1mg Take 1 [facility] 1 mg tablet 2-08 tablet by ity of 00:00: mouth in [place] the Medical morning. Branch liraglutide 2022-0 Yes [id number] INJECT 1.8 [facility] (VICTOZA 2-08 MG UNDER ity of 3-CLARA) 0.6 00:00: THE SKIN [place] mg/0.1 mL 00 ONCE DAILY Medi josep (18 mg/3 EVERY Branch mL) MORNING injection glimepiride 2022-0 Yes [id number] 1mg Take 1 [facility] 1 mg tablet 2-08 tablet by ity of 00:00: mouth in [place] the Medical morning. Branch liraglutide 2022-0 Yes [id number] INJECT 1.8 [facility] (VICTOZA 2-08 MG UNDER ity of 3-CLARA) 0.6 00:00: THE SKIN [place] mg/0.1 mL 00 ONCE DAILY Medi josep (18 mg/3 EVERY Branch mL) MORNING injection glimepiride 2022-0 Yes [id number] 1mg Take 1 [facility] 1 mg tablet 2-08 tablet by ity of 00:00: mouth in [place] the Medical morning. Branch liraglutide 2022-0 Yes [id number] INJECT 1.8 [facility] (VICTOZA 2-08 MG UNDER ity of 3-CLARA) 0.6 00:00: THE SKIN [place] mg/0.1 mL 00 ONCE DAILY Medi josep (18 mg/3 EVERY Branch mL) MORNING injection glimepiride 2022-0 Yes [id number] 1mg Take 1 [facility] 1 mg tablet 2-08 tablet by ity of 00:00: mouth in [place] the Medical morning. Branch liraglutide 2022-0 Yes [id number] INJECT 1.8 [facility] (VICTOZA 2-08 MG UNDER ity of 3-CLARA) 0.6 00:00: THE SKIN [place] mg/0.1 mL 00 ONCE DAILY Medi josep (18 mg/3 EVERY Branch mL) MORNING injection glimepiride 2022-0 Yes [id number] 1mg Take 1 [facility] 1 mg tablet 2-08 tablet by ity of 00:00: mouth in [place] the Medical morning. Branch liraglutide 2022-0 Yes [id number] INJECT 1.8 [facility] (VICTOZA 2-08 MG UNDER ity of 3-CLARA) 0.6 00:00: THE SKIN [place] mg/0.1 mL 00 ONCE DAILY Medi josep (18 mg/3 EVERY Branch mL) MORNING injection glimepiride 2022-0 Yes [id number] 1mg Take 1 [facility] 1 mg tablet 2-08 tablet by ity of 00:00: mouth in [place] the Medical morning. Branch liraglutide 2022-0 Yes [id number] INJECT 1.8 [facility] (VICTOZA 2-08 MG UNDER ity of 3-CLARA) 0.6 00:00: THE SKIN [place] mg/0.1 mL 00 ONCE DAILY Medi josep (18 mg/3 EVERY Branch mL) MORNING injection glimepiride 2022-0 Yes [id number] 1mg Take 1 [facility] 1 mg tablet 2-08 tablet by ity of 00:00: mouth in [place] the Medical morning. Branch liraglutide 2022-0 Yes [id number] INJECT 1.8 [facility] (VICTOZA 2-08 MG UNDER ity of 3-CLARA) 0.6 00:00: THE SKIN [place] mg/0.1 mL 00 ONCE DAILY Medi josep (18 mg/3 EVERY Branch mL) MORNING injection glimepiride 2022-0 Yes [id number] 1mg Take 1 [facility] 1 mg tablet 2-08 tablet by ity of 00:00: mouth in [place] the Medical morning. Branch liraglutide 2022-0 Yes [id number] INJECT 1.8 [facility] (VICTOZA 2-08 MG UNDER ity of 3-CLARA) 0.6 00:00: THE SKIN [place] mg/0.1 mL 00 ONCE DAILY Medi josep (18 mg/3 EVERY Branch mL) MORNING injection glimepiride 2022-0 Yes [id number] 1mg Take 1 [facility] 1 mg tablet 2-08 tablet by ity of 00:00: mouth in [place] the Medical morning. Branch liraglutide 2022-0 Yes [id number] INJECT 1.8 [facility] (VICTOZA 2-08 MG UNDER ity of 3-CLARA) 0.6 00:00: THE SKIN [place] mg/0.1 mL 00 ONCE DAILY Medi josep (18 mg/3 EVERY Branch mL) MORNING injection glimepiride 2022-0 Yes [id number] 1mg Take 1 [facility] 1 mg tablet 2-08 tablet by ity of 00:00: mouth in [place] the Medical morning. Branch liraglutide 3-0 Yes [id number] INJECT 1.8 [facility] (VICTOZA 2-08 MG UNDER ity of 3-CLARA) 0.6 00:00: THE SKIN [place] mg/0.1 mL 00 ONCE DAILY Medi josep (18 mg/3 EVERY Branch mL) MORNING injection glimepiride 3-0 Yes [id number] 1mg Take 1 [facility] 1 mg tablet 2-08 tablet by ity of 00:00: mouth in [place] 00 the Medical morning. Branch liraglutide 2022-0 Yes [id number] INJECT 1.8 [facility] (VICTOZA 2-08 MG UNDER ity of 3-CLARA) 0.6 00:00: THE SKIN [place] mg/0.1 mL 00 ONCE DAILY Medi josep (18 mg/3 EVERY Branch mL) MORNING injection glimepiride 2022-0 Yes [id number] 1mg Take 1 [facility] 1 mg tablet 2-08 tablet by ity of 00:00: mouth in [place] the Medical morning. Branch liraglutide 2022-0 Yes [id number] INJECT 1.8 [facility] (VICTOZA 2-08 MG UNDER ity of 3-CLARA) 0.6 00:00: THE SKIN [place] mg/0.1 mL 00 ONCE DAILY Medi josep (18 mg/3 EVERY Branch mL) MORNING injection glimepiride 2022-0 Yes [id number] 1mg Take 1 [facility] 1 mg tablet 2-08 tablet by ity of 00:00: mouth in [place] the Medical morning. Branch liraglutide 2022-0 Yes [id number] INJECT 1.8 [facility] (VICTOZA 2-08 MG UNDER ity of 3-CLARA) 0.6 00:00: THE SKIN [place] mg/0.1 mL 00 ONCE DAILY Medi josep (18 mg/3 EVERY Branch mL) MORNING injection glimepiride 2022-0 Yes [id number] 1mg Take 1 [facility] 1 mg tablet 2-08 tablet by ity of 00:00: mouth in [place] the Medical morning. Branch liraglutide 3-0 Yes [id number] INJECT 1.8 [facility] (VICTOZA 2-08 MG UNDER ity of 3-CLARA) 0.6 00:00: THE SKIN [place] mg/0.1 mL 00 ONCE DAILY Medi josep (18 mg/3 EVERY Branch mL) MORNING injection glimepiride 2022-0 Yes [id number] 1mg Take 1 [facility] 1 mg tablet 2-08 tablet by ity of 00:00: mouth in [place] the Medical morning. Branch liraglutide 3-0 Yes [id number] INJECT 1.8 [facility] (VICTOZA 2-08 MG UNDER ity of 3-CLARA) 0.6 00:00: THE SKIN [place] mg/0.1 mL 00 ONCE DAILY Medi josep (18 mg/3 EVERY Branch mL) MORNING injection glimepiride Yes [id number] 1mg Take 1 [facility] 1 mg tablet 2-02 tablet by ity of 00:00: mouth in [place] 00 the Medical morning. Branch glimepiride 2022- No [id number] 1mg Take 1 [facility] 1 mg tablet 2-11 16-08 tablet by it y of 00:00: 00:00 mouth in [place] 00 :00 the Medical morning. Branch glimepiride 2022- No [id number] 1mg Take 1 [facility] 1 mg tablet 2-11 16-08 tablet by it y of 00:00: 00:00 mouth in [place] 00 :00 the Medical morning. Branch B [...] Medical (PROBIOTIC Branch 4X ORAL) vitamin C 2022- Yes 1000mg Take 1,000 [facility] with stefany 1-05 mg by ity of hips 1,000 09:35: mouth [place] mg tablet 41 daily. Medical Branch flaxseed 2022- Yes 1{tbl} Take 1 Unive rs oil (OMEGA 1-05 tablet by ity of 3 ORAL) 09:35: mouth [place] 41 daily. Medical Branch B 0 Yes Take by [facility] INFANTIS/B 1-05 mouth. ity of ANI/B HAMLET/B 09:35: [place] BIFID 41 Medical (PROBIOTIC Branch 4X ORAL) vitamin C 2022-0 Yes 1000mg Take 1,000 [facility] with stefany 1-05 mg by ity of hips 1,000 09:35: mouth [place] mg tablet 41 daily. Medical Branch flaxseed 0 Yes 1{tbl} Take 1 Unive rs oil [...] mg tablet 41 daily. Medical Branch flaxseed 0 Yes 1{tbl} Take 1 Un[facility] rs oil (OMEGA 1-05 tablet by ity of 3 ORAL) 09:35: mouth [place] 41 daily. Medical Branch B Yes Take by [facility] INFANTIS/B 1-05 mouth. ity of ANI/B HAMLET/B 09:35: [place] BIFID 41 Medical (PROBIOTIC Branch 4X ORAL) vitamin C 2022-0 Yes 1000mg Take 1,000 [facility] with stefany 1-05 mg by ity of hips 1,000 09:35: mouth [place] mg tablet 41 daily. Medical Branch flaxseed 0 Yes 1{tbl} Take 1 [facility] rs oil (OMEGA 1-05 tablet by ity of 3 ORAL) 09:35: mouth [place] 41 daily. Medical Branch B 0 Yes Take by [facility] INFANTIS/B 1-05 mouth. ity of ANI/B HAMLET/B 09:35: [place] BIFID 41 Medical (PROBIOTIC Branch 4X ORAL) vitamin C 2022-0 Yes 1000mg Take 1,000 [facility] with stefany 1-05 mg by ity of hips 1,000 09:35: mouth [place] mg tablet 41 daily. Medical Branch flaxseed 0 Yes 1{tbl} Take 1 Un[facility] rs oil (OMEGA 1-05 tablet by ity of 3 ORAL) 09:35: mouth [place] 41 daily. Medical Branch B 0 Yes Take by [facility] INFANTIS/B 1-05 mouth. [...] mg tablet 41 daily. Medical Branch flaxseed 0 Yes 1{tbl} Take 1 Unive rs oil (OMEGA 1-05 tablet by ity of 3 ORAL) 09:35: mouth [place] 41 daily. Medical Branch B 0 Yes Take by [facility] INFANTIS/B 1-05 mouth. ity of ANI/B HAMLET/B 09:35: [place] BIFID 41 Medical (PROBIOTIC Branch 4X ORAL) vitamin C 2022-0 Yes 1000mg Take 1,000 [facility] with stefany [...] mouth [place] 41 daily. Medical Branch GLIMEPIRIDE 2021- Yes [id number] TAKE 1 [facility] 1 mg tablet 2-30 TABLET BY ity of 00:00: MOUTH [place] 00 EVERY DAY Medical Branch GLIMEPIRIDE 2021- Yes [id number] TAKE 1 [facility] 1 mg tablet 2-30 TABLET BY ity of 00:00: MOUTH [place] 00 EVERY DAY Medical Branch GLIMEPIRIDE 2021- Yes [id number] TAKE 1 [facility] 1 mg tablet 2-30 TABLET BY ity of 00:00: MOUTH [place] 00 EVERY DAY Medical Branch GLIMEPIRIDE 2021-10 Yes [id number] TAKE 1 [facility] 1 mg tablet 2-30 TABLET BY ity of 00:00: MOUTH [place] 00 EVERY DAY Medical Branch GLIMEPIRIDE 2021-10 Yes [id number] TAKE 1 [facility] 1 mg tablet 2-30 TABLET BY ity of 00:00: MOUTH [place] 00 EVERY DAY Medical Branch GLIMEPIRIDE 2021-10 Yes [id number] TAKE 1 [facility] 1 mg tablet 2-30 TABLET BY ity of 00:00: MOUTH [place] 00 EVERY DAY Medical Branch GLIMEPIRIDE 2021-10 2023- No [id number] TAKE 1 [facility] 1 mg tablet 2-30 02-02 TABLET BY it y of 00:00: 00:00 MOUTH [place] 00 :00 EVERY DAY Medical Branch doxycycline 2021-10 Yes [id number] 100mg Take 1 [facility] hyclate 100 2-22 capsule by it y of mg capsule 00:00: mouth [place] 00 every 12 Medical (twelve) Branch hours. doxycycline 2021-10 Yes [id number] 100mg Take 1 [facility] hyclate 100 2-22 capsule by it y of mg capsule 00:00: mouth [place] 00 every 12 Medical (twelve) Branch hours. doxycycline 2021-10 Yes [id number] 100mg Take 1 [facility] hyclate 100 2-22 capsule by it y of mg capsule 00:00: mouth [place] 00 every 12 Medical (twelve) Branch hours. doxycycline 2021-10 Yes [id number] 100mg Take 1 [facility] hyclate 100 2-22 capsule by it y of mg capsule 00:00: mouth [place] 00 every 12 Medical (twelve) Branch hours. doxycycline 2021-10 Yes [id number] 100mg Take 1 [facility] hyclate 100 2-22 capsule by it y of mg capsule 00:00: mouth [place] 00 every 12 Medical (twelve) Branch hours. doxycycline 2021-10 Yes [id number] 100mg Take 1 [facility] hyclate 100 2-22 capsule by it y of mg capsule 00:00: mouth [place] 00 every 12 Medical (twelve) Branch hours. doxycycline 2021-10 Yes [id number] 100mg Take 1 [facility] hyclate 100 2-22 capsule by it y of mg capsule 00:00: mouth [place] 00 every 12 Medical (twelve) Branch hours. doxycycline 2022-1 Yes [id number] 100mg Take 1 [facility] hyclate 100 2-22 capsule by it y of mg capsule 00:00: mouth [place] 00 every 12 Medical (twelve) Branch hours. doxycycline 2021- Yes [id number] 100mg Take 1 [facility] hyclate 100 2-22 capsule by it y of mg capsule 00:00: mouth [place] 00 every 12 Medical (twelve) Branch hours. doxycycline 2021-1 Yes [id number] 100mg Take 1 [facility] hyclate 100 2-22 capsule by it y of mg capsule 00:00: mouth [place] 00 every 12 Medical (twelve) Branch hours. doxycycline 2021- Yes [id number] 100mg Take 1 [facility] hyclate 100 2-22 capsule by it y of mg capsule 00:00: mouth [place] 00 every 12 Medical (twelve) Branch hours. doxycycline 2021- Yes [id number] 100mg Take 1 [facility] hyclate 100 2-22 capsule by it y of mg capsule 00:00: mouth [place] 00 every 12 Medical (twelve) Branch hours. doxycycline 2021- Yes [id number] 100mg Take 1 [facility] hyclate 100 2-22 capsule by it y of mg capsule 00:00: mouth [place] 00 every 12 Medical (twelve) Branch hours. doxycycline 2021-1 Yes [id number] 100mg Take 1 [facility] hyclate 100 2-22 capsule by it y of mg capsule 00:00: mouth [place] 00 every 12 Medical (twelve) Branch hours. doxycycline 2021-1 Yes [id number] 100mg Take 1 [facility] hyclate 100 2-22 capsule by it y of mg capsule 00:00: mouth [place] 00 every 12 Medical (twelve) Branch hours. doxycycline 2021-1 Yes [id number] 100mg Take 1 [facility] hyclate 100 2-22 capsule by it y of mg capsule 00:00: mouth [place] 00 every 12 Medical (twelve) Branch hours. doxycycline 2021-1 Yes [id number] 100mg Take 1 [facility] hyclate 100 2-22 capsule by it y of mg capsule 00:00: mouth [place] 00 every 12 Medical (twelve) Branch hours. doxycycline 2021-1 Yes [id number] 100mg Take 1 [facility] hyclate 100 2-22 capsule by it y of mg capsule 00:00: mouth [place] 00 every 12 Medical (twelve) Branch hours. doxycycline 2021-1 Yes [id number] 100mg Take 1 [facility] hyclate 100 2-22 capsule by it y of mg capsule 00:00: mouth [place] 00 every 12 Medical (twelve) Branch hours. doxycycline 2021-1 Yes [id number] 100mg Take 1 [facility] hyclate 100 2-22 capsule by it y of mg capsule 00:00: mouth [place] 00 every 12 Medical (twelve) Branch hours. doxycycline 2021-1 Yes [id number] 100mg Take 1 [facility] hyclate 100 2-22 capsule by it y of mg capsule 00:00: mouth [place] 00 every 12 Medical (twelve) Branch hours. doxycycline 2021-1 Yes [id number] 100mg Take 1 [facility] hyclate 100 2-22 capsule by it y of mg capsule 00:00: mouth [place] 00 every 12 Medical (twelve) Branch hours. doxycycline 2021-1 Yes [id number] 100mg Take 1 [facility] hyclate 100 2-22 capsule by it y of mg capsule 00:00: mouth [place] 00 every 12 Medical (twelve) Branch hours. doxycycline 2021-1 Yes [id number] 100mg Take 1 [facility] hyclate 100 2-22 capsule by it y of mg capsule 00:00: mouth [place] 00 every 12 Medical (twelve) Branch hours. doxycycline 2021-1 Yes [id number] 100mg Take 1 [facility] hyclate 100 2-22 capsule by it y of mg capsule 00:00: mouth [place] 00 every 12 Medical (twelve) Branch hours. doxycycline 2021-1 Yes [id number] 100mg Take 1 [facility] hyclate 100 2-22 capsule by it y of mg capsule 00:00: mouth [place] 00 every 12 Medical (twelve) Branch hours. doxycycline 2021-1 Yes [id number] 100mg Take 1 [facility] hyclate 100 2-22 capsule by it y of mg capsule 00:00: mouth [place] 00 every 12 Medical (twelve) Branch hours. doxycycline 2021-1 Yes [id number] 100mg Take 1 [facility] hyclate 100 2-22 capsule by it y of mg capsule 00:00: mouth [place] 00 every 12 Medical (twelve) Branch hours. doxycycline 2021-1 Yes [id number] 100mg Take 1 [facility] hyclate 100 2-22 capsule by it y of mg capsule 00:00: mouth [place] 00 every 12 Medical (twelve) Branch hours. doxycycline 2021-1 Yes [id number] 100mg Take 1 [facility] hyclate 100 2-22 capsule by it y of mg capsule 00:00: mouth [place] 00 every 12 Medical (twelve) Branch hours. doxycycline 2021-10 Yes [id number] 100mg Take 1 [facility] hyclate 100 2-22 capsule by it y of mg capsule 00:00: mouth [place] 00 every 12 Medical (twelve) Branch hours. doxycycline 2021-10 Yes [id number] 100mg Take 1 [facility] hyclate 100 2-22 capsule by it y of mg capsule 00:00: mouth [place] 00 every 12 Medical (twelve) Branch hours. doxycycline 2021-10 Yes [id number] 100mg Take 1 [facility] hyclate 100 2-22 capsule by it y of mg capsule 00:00: mouth [place] 00 every 12 Medical (twelve) Branch hours. doxycycline 2021-10 Yes [id number] 100mg Take 1 [facility] hyclate 100 2-22 capsule by it y of mg capsule 00:00: mouth [place] 00 every 12 Medical (twelve) Branch hours. doxycycline 2021-10 Yes [id number] 100mg Take 1 [facility] hyclate 100 2-22 capsule by it y of mg capsule 00:00: mouth [place] 00 every 12 Medical (twelve) Branch hours. doxycycline 2021-10 Yes [id number] 100mg Take 1 [facility] hyclate 100 2-22 capsule by it y of mg capsule 00:00: mouth [place] 00 every 12 Medical (twelve) Branch hours. doxycycline 2021-10 Yes [id number] 100mg Take 1 [facility] hyclate 100 2-22 capsule by it y of mg capsule 00:00: mouth [place] 00 every 12 Medical (twelve) Branch hours. doxycycline 2021-10 Yes [id number] 100mg Take 1 [facility] hyclate 100 2-22 capsule by it y of mg capsule 00:00: mouth [place] 00 every 12 Medical (twelve) Branch hours. doxycycline 2021-10 Yes [id number] 100mg Take 1 [facility] hyclate 100 2-22 capsule by it y of mg capsule 00:00: mouth [place] 00 every 12 Medical (twelve) Branch hours. doxycycline 2021-10 Yes [id number] 100mg Take 1 [facility] hyclate 100 2-22 capsule by it y of mg capsule 00:00: mouth [place] 00 every 12 Medical (twelve) Branch hours. bupivacaine 2021-2021- No PRN, Unive rs -epinephrin 11-23 Starting ity of e-pf 14:00: 14:44 on Sun [place] (SENSORCAIN 00 :30 09/22/22 at Nm dical E 0800, Branch W/EPINEPHRI Intra-op NE) 0.25 %-1:200,000 30 mL, lidocaine 1% (PF) (XYLOCAINE) 30 mL sodium 2021-10- No PRN, Univers chloride 11-23 Starting ity of 0.9 % 14:00: 14:44 on Sun [place] irrigation 00 :30 09/22/22 at Med ical solution 0800, Branch Until Sun09/22/22 at 0844, Intra-op lactated 2021-10- No 1000mL at 42 Unive rs ringers IV 11-23-09 mL/hr, ity of infusion 13:00: 13:26 1,000 mL, [place] 1,000 mL 00 :00 IV Medical Infusion, Branch ONCE, 1 dose, On Sun09/22/22 at 0700, Routine, DSU Pre-op lactated 2021-10- No 1000mL at 42 Unive rs ringers IV 11-23-09 mL/hr, ity of infusion 13:00: 13:26 1,000 mL, [place] 1,000 mL 00 :00 IV Medical Infusion, Branch ONCE, 1 dose, On Sun09/22/22 at 0700, Routine, DSU Pre-op B 2021-10 Yes Take by [facility] INFANTIS/B 2-09 mouth. ity of ANI/B HAMLET/B 11:26: [facility] 15 Medical (PROBIOTIC Branch 4X ORAL) aspirin 81 2021-10 Yes 81mg Take 81 mg U nivers mg chewable 2-09 by mouth ity of tablet 11:26: daily. [place] [address] Medical Branch vitamin C 2021-10 Yes 1000mg Take 1,000 [facility] with stefany 2-09 mg by ity of hips 1,000 11:26: mouth [place] mg tablet 15 daily. Medical Branch diphenhydrA 2021-10 Yes 25mg Take 25 mg [facility] MINE 25 mg 2-09 by mouth ity o f tablet 11:26: every 6 [place] [address] (six) Medical hours as Branch needed for [...] 2-09 mouth. ity of ANI/B HAMLET/B 11:26: [place] BIFID 15 Medical (PROBIOTIC Branch 4X ORAL) aspirin 81 2021-10 Yes 81mg Take 81 mg U nivers mg chewable 2-09 by mouth ity of tablet 11:26: daily. Medical Branch vitamin C 2021-10 Yes 1000mg [...] 2-09 mouth. ity of ANI/B HAMLET/B 11:26: [place] BIFID 15 Medical (PROBIOTIC Branch 4X ORAL) aspirin 81 2021-10 Yes 81mg Take 81 mg U nivers mg chewable 2-09 by mouth ity of tablet 11:26: daily. Medical Branch vitamin C 2021-10 Yes 1000mg [...] 2-09 mouth. ity of ANI/B HAMLET/B 11:26: [place] BIFID 15 Medical (PROBIOTIC Branch 4X ORAL) aspirin 81 2021-10 Yes 81mg Take 81 mg U nivers mg chewable 2-09 by mouth ity of tablet 11:26: daily. Medical Branch vitamin C 2021-10 Yes 1000mg [...] 2-09 mouth. ity of ANI/B HAMLET/B 11:26: [place] BIFID 15 Medical (PROBIOTIC Branch 4X ORAL) aspirin 81 2021-10 Yes 81mg Take 81 mg U nivers mg chewable 2-09 by mouth ity of tablet 11:26: daily. Medical Branch vitamin C 2021-10 Yes 1000mg [...] by mouth ity of tablet 11:26: daily. [place] [address] Medical Branch diphenhydrA 2021-10 Yes 25mg Take [...] by mouth ity of tablet 11:26: daily. [place] [address] Medical Branch diphenhydrA 2021-10 Yes 25mg Take 25 mg [facility] MINE 25 mg 2-09 by mouth ity o f tablet 11:26: every 6 [place] [address] (six) Medical hours as Branch needed for Allergies. rivaroxaban 2021-10 Yes 15mg Take 15 mg [facility] 15 mg 2-09 by mouth ity of tablet 11:26: in the [place] 15 morning. Medical Branch aspirin 81 2021-10 Yes 81mg Take 81 mg U nivers mg chewable 2-09 by mouth ity of tablet 11:26: daily. [place] [address] Medical Branch diphenhydrA 2021-10 Yes 25mg Take 25 mg [facility] MINE 25 mg 2-09 by mouth ity o f tablet 11:26: every 6 [place] [address] (six) Medical hours as Branch needed for Allergies. rivaroxaban 2021-10 Yes 15mg Take 15 mg [facility] 15 mg 2-09 by mouth ity of tablet 11:26: in the [place] 15 morning. Medical Branch aspirin 81 2021-10 Yes 81mg Take 81 mg U nivers mg chewable 2-09 by mouth ity of tablet 11:26: daily. [place] [address] Medical Branch diphenhydrA 2021-10 Yes 25mg Take 25 mg [facility] MINE 25 mg 2-09 by mouth ity o f tablet 11:26: every 6 [place] [address] (six) Medical hours as Branch needed for Allergies. rivaroxaban 2021-10 Yes 15mg Take 15 mg [facility] 15 mg 2-09 by mouth ity of tablet 11:26: in the [place] 15 morning. Medical Branch aspirin 81 2021-10 Yes 81mg Take 81 mg U nivers mg chewable 2-09 by mouth ity of tablet 11:26: daily. [place] [address] Medical Branch diphenhydrA 2021-10 Yes 25mg Take 25 mg [facility] MINE 25 mg 2-09 by mouth ity o f tablet 11:26: every 6 [place] [address] (six) Medical hours as Branch needed for [...] ity o f tablet 11:26: every 6 [place] 15 (six) Medical hours as Branch needed [...] ity o f tablet 11:26: every 6 [place] 15 (six) Medical hours as Branch needed [...] ity o f tablet 11:26: every 6 [place] 15 (six) Medical hours as Branch needed [...] ity o f tablet 11:26: every 6 [place] 15 (six) Medical hours as Branch needed for Allergies. rivaroxaban 2021-10 Yes 15mg Take 15 mg [facility] 15 mg 2-09 by mouth ity of tablet 11:26: in the [place] 15 morning. Medical Branch aspirin 81 2021-10 Yes 81mg Take 81 mg U nivers mg chewable 2-09 by mouth ity of tablet 11:26: daily. [place] [address] Medical Branch diphenhydrA 2021-10 Yes 25mg Take [...] by mouth ity of tablet 11:26: daily. [place] [address] Medical Branch diphenhydrA 2021-10 Yes 25mg Take 25 mg [facility] MINE 25 mg 2-09 by mouth ity o f tablet 11:26: every 6 [place] 15 (six) Medical hours as Branch needed for Allergies. rivaroxaban 2021-10 Yes 15mg Take 15 mg Univers 15 mg 2-09 by mouth ity of tablet 11:26: in the [place] 15 morning. Medical Branch aspirin 81 2021-10 Yes 81mg Take 81 mg U nivers mg chewable 2-09 by mouth ity of tablet 11:26: daily. [place] [address] Medical Branch diphenhydrA 2021-10 Yes 25mg Take 25 mg [facility] MINE 25 mg 2-09 by mouth ity o f tablet 11:26: every 6 [place] [address] (six) Medical hours as Branch needed for Allergies. rivaroxaban 2021-10 Yes 15mg Take 15 mg [facility] 15 mg 2-09 by mouth ity of tablet 11:26: in the [place] 15 morning. Medical Branch aspirin 81 2021-10 Yes 81mg Take 81 mg U nivers mg chewable 2-09 by mouth ity of tablet 11:26: daily. [place] [address] Medical Branch diphenhydrA 2021-10 Yes 25mg Take 25 mg [facility] MINE 25 mg 2-09 by mouth ity o f tablet 11:26: every 6 [place] [address] (six) Medical hours as Branch needed for Allergies. rivaroxaban 2021-10 Yes 15mg Take 15 mg [facility] 15 mg 2-09 by mouth ity of tablet 11:26: in the [place] 15 morning. Medical Branch aspirin 81 2021-10 Yes 81mg Take 81 mg U nivers mg chewable 2-09 by mouth ity of tablet 11:26: daily. [place] [address] Medical Branch diphenhydrA 2021-10 Yes 25mg Take 25 mg [facility] MINE 25 mg 2-09 by mouth ity o f tablet 11:26: every 6 [place] [address] (six) Medical hours as Branch needed for Allergies. rivaroxaban 2021-10 Yes 15mg Take 15 mg [facility] 15 mg 2-09 by mouth ity of tablet 11:26: in the [place] 15 morning. Medical Branch aspirin 81 2021-10 Yes 81mg Take 81 mg U nivers mg chewable 2-09 by mouth ity of tablet 11:26: daily. [place] [address] Medical Branch diphenhydrA 2021-10 Yes 25mg Take 25 mg [facility] MINE 25 mg 2-09 by mouth ity o f tablet 11:26: every 6 [place] [address] (six) Medical hours as Branch needed for Allergies. rivaroxaban 2021-10 Yes 15mg Take 15 mg [facility] 15 mg 2-09 by mouth ity of tablet 11:26: in the [place] 15 morning. Medical Branch aspirin 81 2021-10 Yes 81mg Take 81 mg U nivers mg chewable 2-09 by mouth ity of tablet 11:26: daily. [place] [address] Medical Branch diphenhydrA 2021-10 Yes 25mg Take 25 mg [facility] MINE 25 mg 2-09 by mouth ity o f tablet 11:26: every 6 [place] [address] (six) Medical hours as Branch needed for Allergies. rivaroxaban 2021-10 Yes 15mg Take 15 mg [facility] 15 mg 2-09 by mouth ity of tablet 11:26: in the [place] 15 morning. Medical Branch aspirin 81 2021-10 Yes 81mg Take 81 mg U nivers mg chewable 2-09 by mouth ity of tablet 11:26: daily. [place] [address] Medical Branch diphenhydrA 2021-10 Yes 25mg Take 25 mg [facility] MINE 25 mg 2-09 by mouth ity o f tablet 11:26: every 6 [place] [address] (six) Medical hours as Branch needed for Allergies. rivaroxaban 2021-10 Yes 15mg Take 15 mg [facility] 15 mg 2-09 by mouth ity of tablet 11:26: in the [place] 15 morning. Medical Branch aspirin 81 2021-10 Yes 81mg Take 81 mg U nivers mg chewable 2-09 by mouth ity of tablet 11:26: daily. [place] [address] Medical Branch diphenhydrA 2021-10 Yes 25mg Take 25 mg [facility] MINE 25 mg 2-09 by mouth ity o f tablet 11:26: every 6 [place] [address] (six) Medical hours as Branch needed for Allergies. rivaroxaban 2021-10 Yes 15mg Take 15 mg [facility] 15 mg 2-09 by mouth ity of tablet 11:26: in the [place] 15 morning. Medical Branch diphenhydrA 2021-10 Yes 25mg Take 25 mg [facility] MINE 25 mg 2-09 by mouth ity o f tablet 11:26: every 6 [place] 15 (six) Medical hours as Branch needed for Allergies. diphenhydrA 2021- Yes 25mg Take 25 mg [facility] MINE 25 mg 2-09 by mouth ity o f tablet 11:26: every 6 [place] 15 (six) Medical hours as Branch needed for Allergies. diphenhydrA 2021- Yes 25mg Take 25 mg [facility] MINE 25 mg 2-09 by mouth ity o f tablet 11:26: every 6 [place] 15 (six) Medical hours as Branch needed for Allergies. diphenhydrA 2021- Yes 25mg Take 25 mg [facility] MINE 25 mg 2-09 by mouth ity o f tablet 11:26: every 6 [place] 15 (six) Medical hours as Branch needed for Allergies. diphenhydrA 2021- Yes 25mg Take 25 mg [facility] MINE 25 mg 2-09 by mouth ity o f tablet 11:26: every 6 [place] 15 (six) Medical hours as Branch needed for Allergies. diphenhydrA 2021- Yes 25mg Take 25 mg [facility] MINE 25 mg 2-09 by mouth ity o f tablet 11:26: every 6 [place] 15 (six) Medical hours as Branch needed for Allergies. diphenhydrA 2021-10 Yes 25mg Take 25 mg [facility] MINE 25 mg 2-09 by mouth ity o f tablet 11:26: every 6 [place] 15 (six) Medical hours as Branch needed for Allergies. diphenhydrA 2021-10 Yes 25mg Take 25 mg [facility] MINE 25 mg 2-09 by mouth ity o f tablet 11:26: every 6 [place] 15 (six) Medical hours as Branch needed for Allergies. diphenhydrA 2021- Yes 25mg Take 25 mg [facility] MINE 25 mg 2-09 by mouth ity o f tablet 11:26: every 6 [place] 15 (six) Medical hours as Branch needed for Allergies. diphenhydrA 2021- Yes 25mg Take 25 mg [facility] MINE 25 mg 2-09 by mouth ity o f tablet 11:26: every 6 [place] 15 (six) Medical hours as Branch needed for Allergies. diphenhydrA 2021- Yes 25mg Take 25 mg [facility] MINE 25 mg 2-09 by mouth ity o f tablet 11:26: every 6 [place] 15 (six) Medical hours as Branch needed for Allergies. diphenhydrA 2021-1 Yes 25mg Take 25 mg [facility] MINE 25 mg 2-09 by mouth ity o f tablet 11:26: every 6 [place] 15 (six) Medical hours as Branch needed for Allergies. diphenhydrA 2021-10 Yes 25mg Take 25 mg [facility] MINE 25 mg 2-09 by mouth ity o f tablet 11:26: every 6 [place] 15 (six) Medical hours as Branch needed for Allergies. B 2021-10 Yes Take by [facility] INFANTIS/B 2-06 mouth. ity of ANI/B HAMLET/B 14:47: [place] BIFID 49 Medical (PROBIOTIC Branch 4X ORAL) aspirin 81 2021-10 Yes 81mg Take 81 mg [facility] nivers mg chewable 2-06 by mouth ity of tablet 14:47: daily. [place] 49 Medical Branch vitamin C 2021-10 Yes 1000mg [...] [place] tablet 49 morning. Medical Branch ceFAZolin 2021-10 1000mg [facility] (ANCEF) 23 11-24 ity of 1,000 mg in 23:00: [...] ity o f tablet 07:26: every 6 [place] 57 (six) Medical hours as Branch needed for Allergies. flaxseed 2021-10 Yes 1{tbl} Take 1 [facility] oil (OMEGA 1-02 tablet by ity of 3 ORAL) 07:26: mouth. [place] 57 Medical Branch vitamin C 2021-10 Yes 1000mg Take 1,000 [facility] with stefany 1-02 mg by ity of hips 1,000 07:26: mouth [place] mg tablet 57 daily. Medical Branch diphenhydrA 2021-10 Yes 25mg Take 25 mg [facility] MINE 25 mg 1-02 by mouth ity o f tablet 07:26: every 6 [place] [address] (six) Medical hours as Branch needed for Allergies. flaxseed 2021-10 Yes 1{tbl} Take 1 [facility] oil (OMEGA 1-02 tablet by ity of 3 ORAL) 07:26: mouth. [place] [address] Medical Branch vitamin C 2021-10 Yes 1000mg Take 1,000 [facility] with stefany 1-02 mg by ity of hips 1,000 07:26: mouth [place] mg tablet 57 daily. Medical Branch diphenhydrA 2021-10 Yes 25mg Take 25 mg [facility] MINE 25 mg 1-02 by mouth ity o f tablet 07:26: every 6 [place] [address] (six) Medical hours as Branch needed for Allergies. flaxseed 2021-10 Yes 1{tbl} Take 1 [facility] oil (OMEGA 1-02 tablet by ity of 3 ORAL) 07:26: mouth. [place] [address] Medical Branch vitamin C 2021-10 Yes 1000mg Take 1,000 [facility] with stefany 1-02 mg by ity of hips 1,000 07:26: mouth [place] mg tablet 57 daily. Medical Branch diphenhydrA 2021-10 Yes 25mg Take 25 mg [facility] MINE 25 mg 1-02 by mouth ity o f tablet 07:26: every 6 [place] [address] (six) Medical hours as Branch needed for Allergies. flaxseed 2021-10 Yes 1{tbl} Take 1 [facility] oil (OMEGA 1-02 tablet by ity of 3 ORAL) 07:26: mouth. [place] [address] Medical Branch vitamin C 2021-10 Yes 1000mg Take 1,000 [facility] with stefany 1-02 mg by ity of hips 1,000 07:26: mouth [place] mg tablet 57 daily. Medical Branch diphenhydrA 2021-10 Yes 25mg Take 25 mg [facility] MINE 25 mg 1-02 by mouth ity o f tablet 07:26: every 6 [place] [address] (six) Medical hours as Branch needed for Allergies. flaxseed 2021-10 Yes 1{tbl} Take 1 [facility] oil (OMEGA 1-02 tablet by ity of 3 ORAL) 07:26: mouth. [place] [address] Medical Branch vitamin C 2022-1 Yes 1000mg Take 1,000 [facility] with stefany 1-02 mg by ity of hips 1,000 07:26: mouth [place] mg tablet 57 daily. Medical Branch diphenhydrA 2021-10 Yes 25mg Take 25 mg [facility] MINE 25 mg 1-02 by mouth ity o f tablet 07:26: every 6 [place] [address] (six) Medical hours as Branch needed for Allergies. flaxseed 2021-10 Yes 1{tbl} Take 1 [facility] oil (OMEGA 1-02 tablet by ity of 3 ORAL) 07:26: mouth. [place] [address] Medical Branch vitamin C 2021-10 Yes 1000mg Take 1,000 [facility] with stefany 1-02 mg by ity of hips 1,000 07:26: mouth [place] mg tablet 57 daily. Medical Branch diphenhydrA 2021-10 Yes 25mg Take 25 mg [facility] MINE 25 mg 1-02 by mouth ity o f tablet 07:26: every 6 [place] [address] (six) Medical hours as Branch needed for Allergies. flaxseed 2021-10 Yes 1{tbl} Take 1 [facility] oil (OMEGA 1-02 tablet by ity of 3 ORAL) 07:26: mouth. [place] [address] Medical Branch vitamin C 2021-10 Yes 1000mg Take 1,000 [facility] with stefany 1-02 mg by ity of hips 1,000 07:26: mouth [place] mg tablet 57 daily. Medical Branch diphenhydrA 2021-10 Yes 25mg Take 25 mg [facility] MINE 25 mg 1-02 by mouth ity o f tablet 07:26: every 6 [place] [address] (six) Medical hours as Branch needed for Allergies. flaxseed 2021-10 Yes 1{tbl} Take 1 [facility] oil (OMEGA 1-02 tablet by ity of 3 ORAL) 07:26: mouth. [place] [address] Medical Branch diphenhydrA 2021-10 Yes 25mg Take 25 mg [facility] MINE 25 mg 1-02 by mouth ity o f tablet 07:26: every 6 [place] [address] (six) Medical hours as Branch needed for Allergies. GLIMEPIRIDE 2021-10 Yes [id number] TAKE 1 [facility] 1 mg tablet 0-06 TABLET BY ity of 00:00: MOUTH [place] 00 EVERY DAY Medical Branch GLIMEPIRIDE 2021-10 Yes [id number] TAKE 1 [facility] 1 mg tablet 0-06 TABLET BY ity of 00:00: MOUTH [place] 00 EVERY DAY Medical Branch GLIMEPIRIDE 2021-10 Yes [id number] TAKE 1 [facility] 1 mg tablet 0-06 TABLET BY ity of 00:00: MOUTH [place] EVERY DAY Medical Branch GLIMEPIRIDE 2021-10 Yes [id number] TAKE 1 [facility] 1 mg tablet 0-06 TABLET BY ity of 00:00: MOUTH [place] EVERY DAY Medical Branch GLIMEPIRIDE 2021-10 Yes [id number] TAKE 1 [facility] 1 mg tablet 0-06 TABLET BY ity of 00:00: MOUTH [place] EVERY DAY Medical Branch GLIMEPIRIDE 2021-10 Yes [id number] TAKE 1 [facility] 1 mg tablet 0-06 TABLET BY ity of 00:00: MOUTH [place] EVERY DAY Medical Branch GLIMEPIRIDE 2021-10 Yes [id number] TAKE 1 [facility] 1 mg tablet 0-06 TABLET BY ity of 00:00: MOUTH [place] EVERY DAY Medical Branch GLIMEPIRIDE 2021-10 Yes [id number] TAKE 1 [facility] 1 mg tablet 0-06 TABLET BY ity of 00:00: MOUTH [place] EVERY DAY Medical Branch GLIMEPIRIDE 2021-10 Yes [id number] TAKE 1 [facility] 1 mg tablet 0-06 TABLET BY ity of 00:00: MOUTH [place] EVERY DAY Medical Branch GLIMEPIRIDE 2021-10 Yes [id number] TAKE 1 [facility] 1 mg tablet 0-06 TABLET BY ity of 00:00: MOUTH [place] DAY Medical Branch GLIMEPIRIDE 2021-10 Yes [id number] TAKE 1 [facility] 1 mg tablet 0-06 TABLET BY ity of 00:00: MOUTH [place] EVERY DAY Medical Branch GLIMEPIRIDE 2021-10 Yes [id number] TAKE 1 [facility] 1 mg tablet 0-06 TABLET BY ity of 00:00: MOUTH [place] EVERY DAY Medical Branch GLIMEPIRIDE 2021-10 Yes [id number] TAKE 1 [facility] 1 mg tablet 0-06 TABLET BY ity of 00:00: MOUTH [place] EVERY DAY Medical Branch GLIMEPIRIDE 2021-10 Yes [id number] TAKE 1 [facility] 1 mg tablet 0-06 TABLET BY ity of 00:00: MOUTH [place] EVERY DAY Medical Branch GLIMEPIRIDE 2021-10- No [id number] TAKE 1 [facility] 1 mg tablet 0-06 [...] BY ity of mg tablet 00:00: MOUTH [place] 00 EVERY DAY Medical WITH FOOD Branch [...] BY ity of mg tablet 00:00: MOUTH [place] 00 EVERY DAY Medical WITH FOOD Branch FOR 90 DAYS metoprolol 0 Yes TAKE 1 [facility] tartrate 50 6-10 TABLET BY ity of mg tablet 00:00: MOUTH [place] 00 EVERY DAY Medical WITH FOOD Branch FOR 90 DAYS metoprolol 0 Yes TAKE 1 [facility] tartrate 50 6-10 TABLET BY ity of mg tablet 00:00: MOUTH [place] 00 EVERY DAY Medical WITH FOOD Branch FOR 90 DAYS metoprolol 0 Yes TAKE 1 [facility] tartrate 50 6-10 TABLET BY ity of mg tablet 00:00: MOUTH [place] 00 EVERY DAY Medical WITH FOOD Branch FOR 90 DAYS metoprolol 0 Yes TAKE 1 [facility] tartrate 50 6-10 TABLET BY ity of mg tablet 00:00: MOUTH [place] 00 EVERY DAY Medical WITH FOOD Branch FOR 90 DAYS metoprolol 0 Yes TAKE 1 [facility] tartrate 50 6-10 TABLET BY ity of mg tablet 00:00: MOUTH [place] 00 EVERY DAY Medical WITH FOOD Branch FOR 90 DAYS metoprolol 0 Yes TAKE 1 [facility] rs tartrate 50 6-10 TABLET BY ity of mg tablet 00:00: MOUTH [place] 00 EVERY DAY Medical WITH FOOD Branch FOR 90 DAYS metoprolol 0 Yes TAKE 1 [facility] rs tartrate 50 6-10 TABLET BY ity of mg tablet 00:00: MOUTH [place] 00 EVERY DAY Medical WITH FOOD Branch FOR 90 DAYS baclofen 10 Yes 10mg Take 10 mg [facility] mg tablet 03-23 by mouth ity of 00:00: at [place] [address] bedtime. Medical Branch baclofen 10 Yes 10mg Take 10 mg [facility] mg tablet - by mouth ity of 00:00: at [place] [address] bedtime. Medical Branch baclofen 10 0 Yes 10mg Take 10 mg [facility] mg tablet - by mouth ity of 00:00: at [place] [address] bedtime. Medical Branch baclofen 10 0 Yes 10mg Take 10 mg [facility] mg tablet - by mouth ity of 00:00: at [place] [address] bedtime. Medical Branch baclofen 10 Yes 10mg Take 10 mg [facility] mg tablet - by mouth ity of 00:00: at [place] [address] bedtime. Medical Branch baclofen 10 2021-0 Yes 10mg Take 10 mg [facility] mg tablet 6-09 by mouth ity of 00:00: at [place] [address] bedtime. Medical Branch baclofen 10 2021-0 Yes 10mg Take 10 mg [facility] mg tablet 6-09 by mouth ity of 00:00: at [place] [address] bedtime. Medical Branch baclofen 10 2021-0 Yes 10mg Take 10 mg [facility] mg tablet 6-09 by mouth ity of 00:00: at [place] [address] bedtime. Medical Branch baclofen 10 2021-0 Yes 10mg Take 10 mg [facility] mg tablet 6-09 by mouth ity of 00:00: at [place] [address] bedtime. Medical Branch baclofen 10 2021-0 Yes 10mg Take 10 mg [facility] mg tablet 6-09 by mouth ity of 00:00: at [place] [address] bedtime. Medical Branch baclofen 10 2021-0 Yes 10mg Take 10 mg [facility] mg tablet 6-09 by mouth ity of 00:00: at [place] [address] bedtime. Medical Branch baclofen 10 2021-0 Yes 10mg Take 10 mg [facility] mg tablet 6-09 by mouth ity of 00:00: at [place] [address] bedtime. Medical Branch baclofen 10 2021-0 Yes 10mg Take 10 mg [facility] mg tablet 6-09 by mouth ity of 00:00: at [place] [address] bedtime. Medical Branch baclofen 10 2021-0 Yes 10mg Take 10 mg [facility] mg tablet 6-09 by mouth ity of 00:00: at [place] [address] bedtime. Medical Branch baclofen 10 2021-0 Yes 10mg Take 10 mg [facility] mg tablet 6-09 by mouth ity of 00:00: at [place] [address] bedtime. Medical Branch baclofen 10 2021-0 Yes 10mg Take 10 mg [facility] mg tablet 6-09 by mouth ity of 00:00: at [place] [address] bedtime. Medical Branch baclofen 10 2021-0 Yes 10mg Take 10 mg [facility] mg tablet 6-09 by mouth ity of 00:00: at [place] [address] bedtime. Medical Branch baclofen 10 2021-0 Yes 10mg Take 10 mg [facility] mg tablet 6-09 by mouth ity of 00:00: at [place] [address] bedtime. Medical Branch baclofen 10 2021-0 Yes 10mg Take 10 mg [facility] mg tablet 6-09 by mouth ity of 00:00: at [place] [address] bedtime. Medical Branch baclofen 10 2021-0 Yes 10mg Take 10 mg [facility] mg tablet 6-09 by mouth ity of 00:00: at [place] [address] bedtime. Medical Branch baclofen 10 2021-0 Yes 10mg Take 10 mg [facility] mg tablet 6-09 by mouth ity of 00:00: at [place] [address] bedtime. Medical Branch baclofen 10 2021-0 Yes 10mg Take 10 mg [facility] mg tablet 6-09 by mouth ity of 00:00: at [place] [address] bedtime. Medical Branch baclofen 10 2021-0 Yes 10mg Take 10 mg [facility] mg tablet 6- by mouth ity of 00:00: at [place] [address] bedtime. Medical Branch baclofen 10 2021-0 Yes 10mg Take 10 mg [facility] mg tablet 6- by mouth ity of 00:00: at [place] [address] bedtime. Medical Branch baclofen 10 2021-0 Yes 10mg Take 10 mg [facility] mg tablet 6- by mouth ity of 00:00: at [place] [address] bedtime. Medical Branch baclofen 10 2021-0 Yes 10mg Take 10 mg [facility] mg tablet 6- by mouth ity of 00:00: at [place] [address] bedtime. Medical Branch baclofen 10 2021-0 Yes 10mg Take 10 mg [facility] mg tablet 6- by mouth ity of 00:00: at [place] [address] bedtime. Medical Branch baclofen 10 2021-0 Yes 10mg Take 10 mg [facility] mg tablet 6-09 by mouth ity of 00:00: at [place] [address] bedtime. Medical Branch baclofen 10 2021-0 Yes 10mg Take 10 mg [facility] mg tablet 6-09 by mouth ity of 00:00: at [place] [address] bedtime. Medical Branch baclofen 10 2021-0 Yes 10mg Take 10 mg [facility] mg tablet 6-09 by mouth ity of 00:00: at [place] [address] bedtime. Medical Branch baclofen 10 2021-0 Yes 10mg Take 10 mg [facility] mg tablet 6-09 by mouth ity of 00:00: at [place] [address] bedtime. Medical Branch baclofen 10 2021-0 Yes 10mg Take 10 mg [facility] mg tablet 6-09 by mouth ity of 00:00: at [place] [address] bedtime. Medical Branch baclofen 10 2021-0 Yes 10mg Take 10 mg [facility] mg tablet 6- by mouth ity of 00:00: at [place] [address] bedtime. Medical Branch baclofen 10 0 Yes 10mg Take 10 mg [facility] mg tablet - by mouth ity of 00:00: at [place] 00 bedtime. Medical Branch baclofen 10 0 Yes 10mg Take 10 mg [facility] mg tablet 03-23 by mouth ity of 00:00: at [place] 00 bedtime. Medical Branch baclofen 10 0 Yes 10mg Take 10 mg [facility] mg tablet - by mouth ity of 00:00: at [place] [address] bedtime. Medical Branch baclofen 10 0 Yes 10mg Take 10 mg [facility] mg tablet 03-23 by mouth ity of 00:00: at [place] [address] bedtime. Medical Branch baclofen 10 Yes 10mg Take 10 mg [facility] mg tablet 03-23 by mouth ity of 00:00: at [place] [address] bedtime. Medical Branch baclofen 10 Yes 10mg Take 10 mg [facility] mg tablet 03-23 by mouth ity of 00:00: at [place] [address] bedtime. Medical Branch baclofen 10 0 Yes 10mg Take 10 mg [facility] mg tablet 03-23 by mouth ity of 00:00: at [place] [address] bedtime. Medical Branch baclofen 10 0 Yes 10mg Take 10 mg [facility] mg tablet 03-23 by mouth ity of 00:00: at [place] [address] bedtime. Medical Branch baclofen 10 0 Yes 10mg Take 10 mg [facility] mg tablet 03-23 by mouth ity of 00:00: at [place] [address] bedtime. Medical Branch baclofen 10 0 2022- No 10mg Take 10 mg [facility] mg tablet 03-23 by mouth ity o f 00:00: 00:00 at [place] 00 :00 bedtime. Medical Branch baclofen 10 2021-0 2022- No 10mg Take 10 mg [facility] mg tablet 03-23 by mouth ity o f 00:00: 00:00 at [place] 00 :00 bedtime. Medical Branch baclofen 10 2021-0 2022- No 10mg Take 10 mg [facility] mg tablet 03-23 by mouth ity o f 00:00: 00:00 at [place] 00 :00 bedtime. Medical Branch LINZESS 145 2022-0 Yes 1{capsu [...] by mouth ity of tablet 00:00: daily. Medical Branch furosemide 2022-0 Yes 40mg Take 40 mg [facility] 40 mg 4-28 by mouth ity of tablet 00:00: daily. [place] [facility] furosemide 2022-0 Yes 40mg Take 40 mg [facility] n[facility] 40 mg 4-28 by mouth ity of tablet 00:00: daily. [place] [facility] furosemide 2022-0 Yes 40mg Take 40 mg [facility] 40 mg 4-28 by mouth ity of tablet 00:00: daily. [place] [facility] furosemide 2022-0 Yes 40mg Take 40 mg [facility] 40 mg 4-28 by mouth ity of tablet 00:00: daily. Medical Branch furosemide 2022-0 Yes 40mg Take 40 mg [facility] 40 mg 4-28 by mouth ity of tablet 00:00: daily. [place] [facility] furosemide 2022-0 Yes 40mg Take 40 mg [facility] 40 mg 4-28 by mouth ity of tablet 00:00: daily. [place] [facility] furosemide 2022-0 Yes 40mg Take 40 mg [facility] 40 mg 4-28 by mouth ity of tablet 00:00: daily. [place] [facility] furosemide 2022-0 Yes 40mg Take 40 mg [facility] n[facility] 40 mg 4-28 by mouth ity of tablet 00:00: daily. [place] [facility] furosemide 2022-0 Yes 40mg Take 40 mg [facility] n[facility] 40 mg 4-28 by mouth ity of tablet 00:00: daily. [place] [address] Medical Branch furosemide 2022-0 Yes 40mg Take 40 mg [facility] n[facility] 40 mg 4-28 by mouth ity of tablet 00:00: daily. [place] [address] Medical Branch furosemide 2022-0 Yes 40mg Take 40 mg [facility] n[facility] 40 mg 4-28 by mouth ity of tablet 00:00: daily. [place] [address] Medical Branch furosemide 2022-0 Yes 40mg Take 40 mg [facility] 40 mg 4-28 by mouth ity of tablet 00:00: in the [place] morning Medical and 40 mg Branch in the evening. furosemide 2022-0 Yes 40mg Take 40 mg [facility] 40 mg 4-28 by mouth ity of tablet 00:00: in the [place] morning Medical and 40 mg Branch in the evening. furosemide 2022-0 Yes 40mg Take 40 mg [facility] 40 mg 4-28 by mouth ity of tablet 00:00: in the [place] morning Medical and 40 mg Branch in the evening. furosemide 2022-0 Yes 40mg Take 40 mg [facility] 40 mg 4-28 by mouth ity of tablet 00:00: in the [place] morning Medical and 40 mg Branch in the evening. furosemide 2022-0 Yes 40mg Take 40 mg [facility] 40 mg 4-28 by mouth ity of tablet 00:00: in the [place] morning Medical and 40 mg Branch in the evening. furosemide 2022-0 Yes 40mg Take 40 mg [facility] 40 mg 4-28 by mouth ity of tablet 00:00: in the [place] morning Medical and 40 mg Branch in the evening. furosemide 2022-0 Yes 40mg Take 40 mg [facility] 40 mg 4-28 by mouth ity of tablet 00:00: in the [place] morning Medical and 40 mg Branch in the evening. furosemide 2022-0 Yes 40mg Take 40 mg [facility] 40 mg 4-28 by mouth ity of tablet 00:00: in the [place] morning Medical and 40 mg Branch in the evening. furosemide 2022-0 Yes 40mg Take 40 mg [facility] 40 mg 4-28 by mouth ity of tablet 00:00: in the [place] morning Medical and 40 mg Branch in the evening. furosemide 2022-0 Yes 40mg Take 40 mg [facility] 40 mg 4-28 by mouth ity of tablet 00:00: in the [place] morning Medical and 40 mg Branch in the evening. furosemide 2022-0 Yes 40mg Take 40 mg [facility] n[facility] 40 mg 4-28 by mouth ity of tablet 00:00: in the [place] morning Medical and 40 mg Branch in the evening. furosemide 2022-0 Yes 40mg Take 40 mg [facility] 40 mg 4-28 by mouth ity of tablet 00:00: in the [place] morning Medical and 40 mg Branch in the evening. furosemide 2022-0 Yes 40mg Take 40 mg [facility] 40 mg 4-28 by mouth ity of tablet 00:00: in the [place] morning Medical and 40 mg Branch in the evening. furosemide 2022-0 Yes 40mg Take 40 mg [facility] n[facility] 40 mg 4-28 by mouth ity of tablet 00:00: in the [place] morning Medical and 40 mg Branch in the evening. furosemide 2022-0 Yes 40mg Take 40 mg [facility] 40 mg 4-28 by mouth ity of tablet 00:00: in the [place] morning Medical and 40 mg Branch in the evening. furosemide 2022-0 Yes 40mg Take 40 mg [facility] 40 mg 4-28 by mouth ity of tablet 00:00: in the [place] morning Medical and 40 mg Branch in the evening. furosemide 2022-0 Yes 40mg Take 40 mg [facility] 40 mg 4-28 by mouth ity of tablet 00:00: in the [place] morning Medical and 40 mg Branch in the evening. furosemide 2022-0 Yes 40mg Take 40 mg [facility] 40 mg 4-28 by mouth ity of tablet 00:00: in the [place] morning Medical and 40 mg Branch in the evening. furosemide 2022-0 Yes 40mg Take 40 mg [facility] 40 mg 4-28 by mouth ity of tablet 00:00: in the [place] morning Medical and 40 mg Branch in the evening. furosemide 2022-0 Yes 40mg Take 40 mg [facility] n[facility] 40 mg 4-28 by mouth ity of tablet 00:00: in the [place] morning Medical and 40 mg Branch in the evening. furosemide 2022-0 Yes 40mg Take 40 mg [facility] 40 mg 4-28 by mouth ity of tablet 00:00: in the [place] morning Medical and 40 mg Branch in the evening. furosemide 2022-0 Yes 40mg Take 40 mg [facility] 40 mg 4-28 by mouth ity of tablet 00:00: in the [place] morning Medical and 40 mg Branch in the evening. furosemide 2022-0 Yes 40mg Take 40 mg [facility] 40 mg 4-28 by mouth ity of tablet 00:00: in the [place] morning Medical and 40 mg Branch in the evening. furosemide 2022-0 Yes 40mg Take 40 mg [facility] 40 mg 4-28 by mouth ity of tablet 00:00: in the [place] morning Medical and 40 mg Branch in the evening. furosemide 2022-0 Yes 40mg Take 40 mg [facility] 40 mg 4-28 by mouth ity of tablet 00:00: in the [place] morning Medical and 40 mg Branch in the evening. furosemide 2022-0 Yes 40mg Take 40 mg [facility] 40 mg 4-28 by mouth ity of tablet 00:00: in the [place] morning Medical and 40 mg Branch in the evening. furosemide 2022-0 Yes 40mg Take 40 mg [facility] 40 mg 4-28 by mouth ity of tablet 00:00: in the [place] morning Medical and 40 mg Branch in the evening. furosemide 2022-0 Yes 40mg Take 40 mg [facility] 40 mg 4-28 by mouth ity of tablet 00:00: in the [place] morning Medical and 40 mg Branch in the evening. furosemide 2022-0 Yes 40mg Take 40 mg [facility] 40 mg 4-28 by mouth ity of tablet 00:00: in the [place] morning Medical and 40 mg Branch in the evening. furosemide 2022-0 Yes 40mg Take 40 mg [facility] 40 mg 4-28 by mouth ity of tablet 00:00: in the [place] morning Medical and 40 mg Branch in the evening. furosemide 2022-0 Yes 40mg Take 40 mg [facility] 40 mg 4-28 by mouth ity of tablet 00:00: in the [place] morning Medical and 40 mg Branch in the evening. furosemide 2022-0 Yes 40mg Take 40 mg [facility] 40 mg 4-28 by mouth ity of tablet 00:00: in the [place] morning Medical and 40 mg Branch in the evening. furosemide 2022-0 Yes 40mg Take 40 mg [facility] 40 mg 4-28 by mouth ity of tablet 00:00: in the [place] morning Medical and 40 mg Branch in the evening. furosemide 2022-0 Yes 40mg Take 40 mg [facility] 40 mg 4-28 by mouth ity of tablet 00:00: in the [place] morning Medical and 40 mg Branch in the evening. furosemide 2022-0 Yes 40mg Take 40 mg [facility] 40 mg 4-28 by mouth ity of tablet 00:00: in the [place] morning Medical and 40 mg Branch in the evening. furosemide 2022-0 Yes 40mg Take 40 mg [facility] 40 mg 4-28 by mouth ity of tablet 00:00: in the [place] morning Medical and 40 mg Branch in the evening. furosemide 2022-0 Yes 40mg Take 40 mg [facility] n[facility] 40 mg 4-28 by mouth ity of tablet 00:00: in the [place] morning Medical and 40 mg Branch in the evening. furosemide 2022-0 Yes 40mg Take 40 mg [facility] 40 mg 4-28 by mouth ity of tablet 00:00: in the [place] morning Medical and 40 mg Branch in the evening. furosemide 2022-0 Yes 40mg Take 40 mg [facility] 40 mg 4-28 by mouth ity of tablet 00:00: in the [place] morning Medical and 40 mg Branch in the evening. furosemide 2022-0 Yes 40mg Take 40 mg [facility] 40 mg 4-28 by mouth ity of tablet 00:00: in the [place] morning Medical and 40 mg Branch in the evening. furosemide 2022-0 Yes 40mg Take 40 mg [facility] 40 mg 4-28 by mouth ity of tablet 00:00: in the [place] morning Medical and 40 mg Branch in the evening. furosemide 2022-0 Yes 40mg Take 40 mg [facility] 40 mg 4-28 by mouth ity of tablet 00:00: in the [place] morning Medical and 40 mg Branch in the evening. furosemide 2022-0 Yes 40mg Take 40 mg [facility] 40 mg 4-28 by mouth ity of tablet 00:00: in the [place] morning Medical and 40 mg Branch in the evening. losartan 50 2021-0 Yes 50mg Take 50 mg [facility] mg tablet 4-15 by mouth ity of 00:00: daily. [place] [facility] losartan 50 2021-0 Yes 50mg Take 50 mg [facility] mg tablet 4-15 by mouth ity of 00:00: daily. [place] [facility] losartan 50 2021-0 Yes 50mg Take 50 mg [facility] mg tablet 4-15 by mouth ity of 00:00: daily. [place] [facility] losartan 50 2021-0 Yes 50mg Take 50 mg [facility] mg tablet 4-15 by mouth ity of 00:00: daily. [place] [facility] losartan 50 2021-0 Yes 50mg Take 50 mg [facility] mg tablet 4-15 by mouth ity of 00:00: daily. [place] [facility] losartan 50 2021-0 Yes 50mg Take 50 mg [facility] mg tablet 4-15 by mouth ity of 00:00: daily. [place] [facility] losartan 50 2021-0 Yes 50mg Take 50 mg [facility] mg tablet 4-15 by mouth ity of 00:00: daily. [place] [facility] losartan 50 2021-0 Yes 50mg Take 50 mg [facility] mg tablet 4-15 by mouth ity of 00:00: daily. [place] [facility] losartan 50 2021-0 Yes 50mg Take 50 mg [facility] mg tablet 4-15 by mouth ity of 00:00: daily. [place] [facility] losartan 50 2021-0 Yes 50mg Take 50 mg [facility] mg tablet 4-15 by mouth ity of 00:00: daily. [place] [facility] losartan 50 2021-0 Yes 50mg Take 50 mg [facility] mg tablet 4-15 by mouth ity of 00:00: daily. [place] [facility] losartan 50 2021-0 Yes 50mg Take 50 mg [facility] mg tablet 4-15 by mouth ity of 00:00: daily. [place] [facility] losartan 50 2021-0 Yes 50mg Take 50 mg [facility] mg tablet 4-15 by mouth ity of 00:00: daily. [place] [address] [facility] Branch losartan 50 2021-0 Yes 50mg Take 50 mg [facility] mg tablet 4-15 by mouth ity of 00:00: daily. [place] [address] [facility] Branch losartan 50 2021-0 Yes 50mg Take 50 mg [facility] mg tablet 4-15 by mouth ity of 00:00: daily. [place] [facility] losartan 50 2021-0 Yes 50mg Take 50 mg [facility] mg tablet 4-15 by mouth ity of 00:00: daily. [place] [facility] losartan 50 2021-0 Yes 50mg Take 50 mg [facility] mg tablet 4-15 by mouth ity of 00:00: daily. [place] [facility] losartan 50 2021-0 Yes 50mg Take 50 mg [facility] mg tablet 4-15 by mouth ity of 00:00: daily. [place] [facility] losartan 50 2021-0 Yes 50mg Take 50 mg [facility] mg tablet 4-15 by mouth ity of 00:00: daily. [place] [facility] losartan 50 2021-0 Yes 50mg Take 50 mg [facility] mg tablet 4-15 by mouth ity of 00:00: daily. [place] [facility] losartan 50 2021-0 Yes 50mg Take 50 mg [facility] mg tablet 4-15 by mouth ity of 00:00: daily. [place] [facility] losartan 50 2021-0 Yes 50mg Take 50 mg [facility] mg tablet 4-15 by mouth ity of 00:00: daily. [place] [facility] losartan 50 2021-0 Yes 50mg Take 50 mg [facility] mg tablet 4-15 by mouth ity of 00:00: daily. [place] [facility] losartan 50 2021-0 Yes 50mg Take 50 mg [facility] mg tablet 4-15 by mouth ity of 00:00: daily. [place] [facility] losartan 50 2021-0 Yes 50mg Take 50 mg [facility] mg tablet 4-15 by mouth ity of 00:00: daily. [place] [facility] losartan 50 2021-0 Yes 50mg Take 50 mg [facility] mg tablet 4-15 by mouth ity of 00:00: daily. [place] [facility] losartan 50 2021-0 Yes 50mg Take 50 mg [facility] mg tablet 4-15 by mouth ity of 00:00: daily. [place] [facility] losartan 50 2021-0 Yes 50mg Take 50 mg [facility] mg tablet 4-15 by mouth ity of 00:00: daily. [place] [facility] losartan 50 2021-0 Yes 50mg Take 50 mg [facility] mg tablet 4-15 by mouth ity of 00:00: daily. [place] [facility] losartan 50 2021-0 Yes 50mg Take 50 mg [facility] mg tablet 4-15 by mouth ity of 00:00: daily. [place] [facility] losartan 50 2021-0 Yes 50mg Take 50 mg [facility] mg tablet 4-15 by mouth ity of 00:00: daily. [place] [facility] losartan 50 2021-0 Yes 50mg Take 50 mg [facility] mg tablet 4-15 by mouth ity of 00:00: daily. [place] [facility] losartan 50 2021-0 Yes 50mg Take 50 mg [facility] mg tablet 4-15 by mouth ity of 00:00: daily. [place] [facility] losartan 50 2021-0 Yes 50mg Take 50 mg [facility] mg tablet 4-15 by mouth ity of 00:00: daily. [place] [facility] losartan 50 2021-0 Yes 50mg Take 50 mg [facility] mg tablet 4-15 by mouth ity of 00:00: daily. [place] [facility] losartan 50 2021-0 Yes 50mg Take 50 mg [facility] mg tablet 4-15 by mouth ity of 00:00: daily. [place] [facility] losartan 50 2021-0 Yes 50mg Take 50 mg [facility] mg tablet 4-15 by mouth ity of 00:00: daily. [place] [facility] losartan 50 2021-0 Yes 50mg Take 50 mg [facility] mg tablet 4-15 by mouth ity of 00:00: daily. [place] [facility] losartan 50 2021-0 Yes 50mg Take 50 mg [facility] mg tablet 4-15 by mouth ity of 00:00: daily. [place] [facility] losartan 50 2021-0 Yes 50mg Take 50 mg [facility] mg tablet 4-15 by mouth ity of 00:00: daily. [place] [facility] losartan 50 2021-0 Yes 50mg Take 50 mg [facility] mg tablet 4-15 by mouth ity of 00:00: daily. [place] [facility] losartan 50 2021-0 Yes 50mg Take 50 mg [facility] mg tablet 4-15 by mouth ity of 00:00: daily. [place] [facility] losartan 50 2021-0 3- No 50mg Take 50 mg [facility] mg tablet 4-15 02-08 by mouth ity o f 00:00: 00:00 daily. [place] 00 : Medical Branch losartan 50 2-0 3- No 50mg Take 50 mg [facility] mg tablet 4-15 02-08 by mouth ity o f 00:00: 00:00 daily. [place] 00 : Medical Branch losartan 50 2-0 2023- No 50mg Take 50 mg [facility] mg tablet 01-27 by mouth ity o f 00:00: 00:00 daily. [place] 00 :00 Medical Branch glimepiride Yes [id number] 1mg Take 1 [facility] 1 mg tablet 4-04 tablet by ity of 00:00: mouth [place] 00 daily. Medical Branch glimepiride Yes [id number] 1mg Take 1 [facility] 1 mg tablet 4-04 tablet by ity of 00:00: mouth [place] 00 daily. Medical Branch glimepiride Yes [id number] 1mg Take 1 [facility] 1 mg tablet 4-04 tablet by ity of 00:00: mouth [place] 00 daily. Medical Branch glimepiride 2021- No [id number] 1mg Take 1 [facility] 1 mg tablet -01 22- tablet by it y of 00:00: 00:00 mouth [place] 00 :00 daily. Medical Branch cephALEXin 2021- No [id number] 250mg Take 1 [facility] (KEFLEX) -01 18-17 capsule by ity of 250 mg 00:00: 00:00 mouth [place] capsule 00 :00 every 6 Medical (six) Branch hours. aspirin 81 2020-10 Yes 81mg Take 81 mg U nivers mg chewable 1-18 by mouth ity of tablet 08:59: daily. [address] Branch aspirin 81 2020-10 Yes 81mg Take 81 mg U nivers mg chewable 1-18 by mouth ity of tablet 08:59: daily. [place] [address] Medical Branch aspirin 81 2020-10 Yes 81mg Take 81 mg U nivers mg chewable 1-18 by mouth ity of tablet 08:59: daily. [address] Branch aspirin 81 2020-10 Yes 81mg Take 81 mg U nivers mg chewable 1-18 by mouth ity of tablet 08:59: daily. [address] Branch aspirin 81 2020-10 Yes 81mg Take 81 mg U nivers mg chewable 1-18 by mouth ity of tablet 08:59: daily. [address] Branch aspirin 81 2020-10 Yes 81mg Take 81 mg U nivers mg chewable 1-18 by mouth ity of tablet 08:59: daily. [address] Branch aspirin 81 2020-10 Yes 81mg Take 81 mg U nivers mg chewable 1-18 by mouth ity of tablet 08:59: daily. [address] aspirin 81 2020-10 Yes 81mg Take 81 mg U nivers mg chewable 1-18 by mouth ity of tablet 08:59: daily. [address] aspirin 81 2020-10 Yes 81mg Take 81 mg U nivers mg chewable 1-18 by mouth ity of tablet 08:59: daily. [address] aspirin 81 2020-10 Yes 81mg Take 81 mg U nivers mg chewable 1-18 by mouth ity of tablet 08:59: daily. [address] aspirin 81 2020-10 Yes 81mg Take 81 mg U nivers mg chewable 1-18 by mouth ity of tablet 08:59: daily. [address] aspirin 81 2020-10 Yes 81mg Take 81 mg U nivers mg chewable 1-18 by mouth ity of tablet 08:59: daily. [address] aspirin 81 2020-10 Yes 81mg Take 81 mg U nivers mg chewable 1-18 by mouth ity of tablet 08:59: daily. [address] FEBUXOSTAT 2020-10 Yes [id number] TAKE 1 [facility] 40 mg 1-02 TABLET BY ity of tablet 00:00: MOUTH [place] 00 EVERY DAY Medical IN THE [facility] FEBUXOSTAT 2020-10 Yes [id number] TAKE 1 [facility] 40 mg 1-02 TABLET BY ity of tablet 00:00: MOUTH [place] 00 EVERY DAY Medical IN THE [facility] FEBUXOSTAT 2020-10 Yes [id number] TAKE 1 [facility] 40 mg 1-02 TABLET BY ity of tablet 00:00: MOUTH [place] 00 EVERY DAY Medical IN THE [facility] FEBUXOSTAT 2020-10 Yes [id number] TAKE 1 [facility] 40 mg 1-02 TABLET BY ity of tablet 00:00: MOUTH [place] 00 EVERY DAY Medical IN THE [facility] FEBUXOSTAT 2020-10 Yes [id number] TAKE 1 [facility] 40 mg 1-02 TABLET BY ity of tablet 00:00: MOUTH [place] 00 EVERY DAY Medical IN THE [facility] FEBUXOSTAT 2020-10 Yes [id number] TAKE 1 [facility] 40 mg 1-02 TABLET BY ity of tablet 00:00: MOUTH [place] 00 EVERY DAY Medical IN THE Branch MORNING FEBUXOSTAT 2020-10 Yes [id number] TAKE 1 [facility] 40 mg 1-02 TABLET BY ity of tablet 00:00: MOUTH [place] 00 EVERY DAY Medical IN THE [facility] FEBUXOSTAT 2020-10 Yes [id number] TAKE 1 [facility] 40 mg 1-02 TABLET BY ity of tablet 00:00: MOUTH [place] 00 EVERY DAY Medical IN THE [facility] FEBUXOSTAT 2020-10 Yes [id number] TAKE 1 [facility] 40 mg 1-02 TABLET BY ity of tablet 00:00: MOUTH [place] 00 EVERY DAY Medical IN THE [facility] FEBUXOSTAT 2020-10 Yes [id number] TAKE 1 [facility] 40 mg 1-02 TABLET BY ity of tablet 00:00: MOUTH [place] 00 EVERY DAY Medical IN THE [facility] FEBUXOSTAT 2020-10 Yes [id number] TAKE 1 [facility] 40 mg 1-02 TABLET BY ity of tablet 00:00: MOUTH [place] 00 EVERY DAY Medical IN THE [facility] FEBUXOSTAT 2020-10 Yes [id number] TAKE 1 [facility] 40 mg 1-02 TABLET BY ity of tablet 00:00: MOUTH [place] 00 EVERY DAY Medical IN THE [facility] FEBUXOSTAT 2020-10 Yes [id number] TAKE 1 [facility] 40 mg 1-02 TABLET BY ity of tablet 00:00: MOUTH [place] 00 EVERY DAY Medical IN THE [facility] FEBUXOSTAT 2020-10 Yes [id number] TAKE 1 [facility] 40 mg 1-02 TABLET BY ity of tablet 00:00: MOUTH [place] 00 EVERY DAY Medical IN THE [facility] FEBUXOSTAT 2020-10 Yes [id number] TAKE 1 [facility] 40 mg 1-02 TABLET BY ity of tablet 00:00: MOUTH [place] 00 EVERY DAY Medical IN THE [facility] FEBUXOSTAT 2020-10 Yes [id number] TAKE 1 [facility] 40 mg 1-02 TABLET BY ity of tablet 00:00: MOUTH [place] 00 EVERY DAY Medical IN THE [facility] FEBUXOSTAT 2020-10 Yes [id number] TAKE 1 [facility] 40 mg 1-02 TABLET BY ity of tablet 00:00: MOUTH [place] 00 EVERY DAY Medical IN THE [facility] FEBUXOSTAT 2020-10 Yes [id number] TAKE 1 [facility] 40 mg 1-02 TABLET BY ity of tablet 00:00: MOUTH [place] 00 EVERY DAY Medical IN THE [facility] FEBUXOSTAT 2020-10 Yes [id number] TAKE 1 [facility] 40 mg 1-02 TABLET BY ity of tablet 00:00: MOUTH [place] 00 EVERY DAY Medical IN THE [facility] FEBUXOSTAT 2020-10 Yes [id number] TAKE 1 [facility] 40 mg 1-02 TABLET BY ity of tablet 00:00: MOUTH [place] 00 EVERY DAY Medical IN THE [facility] FEBUXOSTAT 2020-10 Yes [id number] TAKE 1 [facility] 40 mg 1-02 TABLET BY ity of tablet 00:00: MOUTH [place] 00 EVERY DAY Medical IN THE [facility] FEBUXOSTAT 2020-10 Yes [id number] TAKE 1 [facility] 40 mg 1-02 TABLET BY ity of tablet 00:00: MOUTH [place] 00 EVERY DAY Medical IN THE [facility] FEBUXOSTAT 2020-10 Yes [id number] TAKE 1 [facility] 40 mg 1-02 TABLET BY ity of tablet 00:00: MOUTH [place] 00 EVERY DAY Medical IN THE [facility] FEBUXOSTAT 2020-10 Yes [id number] TAKE 1 [facility] 40 mg 1-02 TABLET BY ity of tablet 00:00: MOUTH [place] 00 EVERY DAY Medical IN THE [facility] FEBUXOSTAT 2020-10 Yes [id number] TAKE 1 [facility] 40 mg 1-02 TABLET BY ity of tablet 00:00: MOUTH [place] 00 EVERY DAY Medical IN THE [facility] FEBUXOSTAT 2020-10 Yes [id number] TAKE 1 [facility] 40 mg 1-02 TABLET BY ity of tablet 00:00: MOUTH [place] 00 EVERY DAY Medical IN THE [facility] FEBUXOSTAT 2020-10 Yes [id number] TAKE 1 [facility] 40 mg 1-02 TABLET BY ity of tablet 00:00: MOUTH [place] 00 EVERY DAY Medical IN THE [facility] FEBUXOSTAT 2020-10 Yes [id number] TAKE 1 [facility] 40 mg 1-02 TABLET BY ity of tablet 00:00: MOUTH [place] 00 EVERY DAY Medical IN THE [facility] FEBUXOSTAT 2020-10 Yes [id number] TAKE 1 [facility] 40 mg 1-02 TABLET BY ity of tablet 00:00: MOUTH [place] 00 EVERY DAY Medical IN THE [facility] FEBUXOSTAT 2020-10 Yes [id number] TAKE 1 [facility] 40 mg 1-02 TABLET BY ity of tablet 00:00: MOUTH [place] 00 EVERY DAY Medical IN THE [facility] FEBUXOSTAT 2020-10 Yes [id number] TAKE 1 [facility] 40 mg 1-02 TABLET BY ity of tablet 00:00: MOUTH [place] 00 EVERY DAY Medical IN THE [facility] FEBUXOSTAT 2020-10 Yes [id number] TAKE 1 [facility] 40 mg 1-02 TABLET BY ity of tablet 00:00: MOUTH [place] 00 EVERY DAY Medical IN THE [facility] FEBUXOSTAT 2020-10 Yes [id number] TAKE 1 [facility] 40 mg 1-02 TABLET BY ity of tablet 00:00: MOUTH [place] 00 EVERY DAY Medical IN THE [facility] FEBUXOSTAT 2020-10 Yes [id number] TAKE 1 [facility] 40 mg 1-02 TABLET BY ity of tablet 00:00: MOUTH [place] 00 EVERY DAY Medical IN THE [facility] FEBUXOSTAT 2020-10 Yes [id number] TAKE 1 [facility] 40 mg 1-02 TABLET BY ity of tablet 00:00: MOUTH [place] 00 EVERY DAY Medical IN THE [facility] FEBUXOSTAT 2020-10 Yes [id number] TAKE 1 [facility] 40 mg 1-02 TABLET BY ity of tablet 00:00: MOUTH [place] 00 EVERY DAY Medical IN THE [facility] FEBUXOSTAT 2020-10 Yes [id number] TAKE 1 [facility] 40 mg 1-02 TABLET BY ity of tablet 00:00: MOUTH [place] 00 EVERY DAY Medical IN THE [facility] FEBUXOSTAT 2020-10 Yes [id number] TAKE 1 [facility] 40 mg 1-02 TABLET BY ity of tablet 00:00: MOUTH [place] 00 EVERY DAY Medical IN THE [facility] FEBUXOSTAT 2020-10 Yes [id number] TAKE 1 [facility] 40 mg 1-02 TABLET BY ity of tablet 00:00: MOUTH [place] 00 EVERY DAY Medical IN THE [facility] FEBUXOSTAT 2020-10 Yes [id number] TAKE 1 [facility] 40 mg 1-02 TABLET BY ity of tablet 00:00: MOUTH [place] 00 EVERY DAY Medical IN THE [facility] FEBUXOSTAT 2020-10 Yes [id number] TAKE 1 [facility] 40 mg 1-02 TABLET BY ity of tablet 00:00: MOUTH [place] 00 EVERY DAY Medical IN THE [facility] FEBUXOSTAT 2020-10 Yes [id number] TAKE 1 [facility] 40 mg 1-02 TABLET BY ity of tablet 00:00: MOUTH [place] 00 EVERY DAY Medical IN THE [facility] FEBUXOSTAT 2020-10 Yes [id number] TAKE 1 [facility] 40 mg 1-02 TABLET BY ity of tablet 00:00: MOUTH [place] 00 EVERY DAY Medical IN THE [facility] FEBUXOSTAT 2020-10 Yes [id number] TAKE 1 [facility] 40 mg 1-02 TABLET BY ity of tablet 00:00: MOUTH [place] 00 EVERY DAY Medical IN THE [facility] FEBUXOSTAT 2020-10 Yes [id number] TAKE 1 [facility] 40 mg 1-02 TABLET BY ity of tablet 00:00: MOUTH [place] 00 EVERY DAY Medical IN THE [facility] FEBUXOSTAT 2020-10 Yes [id number] TAKE 1 [facility] 40 mg 1-02 TABLET BY ity of tablet 00:00: MOUTH [place] 00 EVERY DAY Medical IN THE [facility] FEBUXOSTAT 2020-10 Yes [id number] TAKE 1 [facility] 40 mg 1-02 TABLET BY ity of tablet 00:00: MOUTH [place] 00 EVERY DAY Medical IN THE [facility] FEBUXOSTAT 2020-10 Yes [id number] TAKE 1 [facility] 40 mg 1-02 TABLET BY ity of tablet 00:00: MOUTH [place] 00 EVERY DAY Medical IN THE [facility] FEBUXOSTAT 2020-10 Yes [id number] TAKE 1 [facility] 40 mg 1-02 TABLET BY ity of tablet 00:00: MOUTH [place] 00 EVERY DAY Medical IN THE [facility] FEBUXOSTAT 2020-10 Yes [id number] TAKE 1 [facility] 40 mg 1-02 TABLET BY ity of tablet 00:00: MOUTH [place] 00 EVERY DAY Medical IN THE [facility] FEBUXOSTAT 2020-10 Yes [id number] TAKE 1 [facility] 40 mg 1-02 TABLET BY ity of tablet 00:00: MOUTH [place] 00 EVERY DAY Medical IN THE [facility] FEBUXOSTAT 2020-10 Yes [id number] TAKE 1 [facility] 40 mg 1-02 TABLET BY ity of tablet 00:00: MOUTH [place] 00 EVERY DAY Medical IN THE [facility] FEBUXOSTAT 2020-10 Yes [id number] TAKE 1 [facility] 40 mg 1-02 TABLET BY ity of tablet 00:00: MOUTH [place] 00 EVERY DAY Medical IN THE [facility] FEBUXOSTAT 2020-10 Yes [id number] TAKE 1 [facility] 40 mg 1-02 TABLET BY ity of tablet 00:00: MOUTH [place] 00 EVERY DAY Medical IN THE [facility] FEBUXOSTAT 2020-10 Yes [id number] TAKE 1 [facility] 40 mg 1-02 TABLET BY ity of tablet 00:00: MOUTH [place] 00 EVERY DAY Medical IN THE Branch MORNING FEBUXOSTAT 2020-10 Yes [id number] TAKE 1 [facility] 40 mg 1-02 TABLET BY ity of tablet 00:00: MOUTH [place] 00 EVERY DAY Medical IN THE [place] MORNING digoxin 125 2020-10 Yes [id number] .125mg Take 1 [facility] mcg tablet 0-29 tablet by ity of 00:00: mouth [place] 00 daily. Medical Branch digoxin 125 2020-10 Yes [id number] .125mg Take 1 [facility] mcg tablet 0-29 tablet by ity of 00:00: mouth [place] 00 daily. Medical Branch digoxin 125 2020-10 Yes [id number] .125mg Take 1 [facility] mcg tablet 0-29 tablet by ity of 00:00: mouth [place] 00 daily. Medical Branch digoxin 125 2020-10 Yes [id number] .125mg Take 1 [facility] mcg tablet 0-29 tablet by ity of 00:00: mouth [place] 00 daily. Medical Branch digoxin 125 2020-10 Yes [id number] .125mg Take 1 [facility] mcg tablet 0-29 tablet by ity of 00:00: mouth [place] 00 daily. Medical Branch digoxin 125 2020-10 Yes [id number] .125mg Take 1 [facility] mcg tablet 0-29 tablet by ity of 00:00: mouth [place] 00 daily. Medical Branch digoxin 125 2020-10 Yes [id number] .125mg Take 1 [facility] mcg tablet 0-29 tablet by ity of 00:00: mouth [place] 00 daily. Medical Branch digoxin 125 2020-10 Yes [id number] .125mg Take 1 [facility] mcg tablet 0-29 tablet by ity of 00:00: mouth [place] 00 daily. Medical Branch digoxin 125 2020-10 Yes [id number] .125mg Take 1 [facility] mcg tablet 0-29 tablet by ity of 00:00: mouth [place] 00 daily. Medical Branch digoxin 125 2020-10 Yes [id number] .125mg Take 1 [facility] mcg tablet 0-29 tablet by ity of 00:00: mouth [place] 00 daily. Medical Branch digoxin 125 2020-10 Yes [id number] .125mg Take 1 [facility] mcg tablet 0-29 tablet by ity of 00:00: mouth [place] 00 daily. Medical Branch digoxin 125 2020-10 Yes [id number] .125mg Take 1 [facility] mcg tablet 0-29 tablet by ity of 00:00: mouth [place] 00 daily. Medical Branch digoxin 125 2020-10 Yes [id number] .125mg Take 1 [facility] mcg tablet 0-29 tablet by ity of 00:00: mouth [place] 00 daily. Medical Branch digoxin 125 2020-10- No [id number] .125mg Take 1 [facility] mcg tablet 0-29 12-06 tablet by ity of 00:00: 00:00 mouth [place] 00 :00 daily. Medical Branch digoxin 125 2020-10- No [id number] .125mg Take 1 [facility] mcg tablet 0-29 12-06 tablet by ity of 00:00: 00:00 mouth [place] 00 :00 daily. Medical Branch B 2020-10 Yes Take by Univers INFANTIS/B 0-28 mouth. ity of ANI/B HAMLET/B 17:00: [place] BIFID 58 Medical (PROBIOTIC Branch 4X ORAL) [...] by ity of 3 ORAL) 17:00: mouth. [place] [address] Medical Branch B 2020-10 Yes Take by Univers INFANTIS/B 0-28 mouth. ity of ANI/B HAMLET/B 17:00: [place] BIFID 58 Medical (PROBIOTIC Branch 4X ORAL) [...] by ity of 3 ORAL) 17:00: mouth. [place] [address] Medical Branch B 2020-10 Yes Take by Univers INFANTIS/B 0-28 mouth. ity of ANI/B HAMLET/B 17:00: [place] BIFID 58 Medical (PROBIOTIC Branch 4X ORAL) [...] by ity of 3 ORAL) 17:00: mouth. [place] [address] Medical Branch B 2020-10 Yes Take by Univers INFANTIS/B 0-28 mouth. ity of ANI/B HAMLET/B 17:00: [place] BIFID 58 Medical (PROBIOTIC Branch 4X ORAL) [...] by ity of 3 ORAL) 17:00: mouth. [place] [address] Medical Branch B 2020-10 Yes Take by Univers INFANTIS/B 0-28 mouth. ity of ANI/B HAMLET/B 17:00: [place] BIFID 58 Medical (PROBIOTIC Branch 4X ORAL) [...] by ity of 3 ORAL) 17:00: mouth. [place] [address] Medical Branch B 2020-10 Yes Take by Univers INFANTIS/B 0-28 mouth. ity of ANI/B HAMLET/B 17:00: [place] BIFID 58 Medical (PROBIOTIC Branch 4X ORAL) B 2020-10 Yes Take by Univers INFANTIS/B 0-28 mouth. ity of ANI/B HAMLET/B 17:00: [place] BIFID 58 Medical (PROBIOTIC Branch 4X ORAL) B 2020-10 Yes Take by Univers INFANTIS/B 0-28 mouth. ity of ANI/B HAMLET/B 17:00: [place] BIFID 58 Medical (PROBIOTIC Branch 4X ORAL) B 2020-10 Yes Take by Univers INFANTIS/B 0-28 mouth. ity of ANI/B HAMLET/B 17:00: [place] BIFID 58 Medical (PROBIOTIC Branch 4X ORAL) B 2020-10 Yes Take by [facility] INFANTIS/B 0-28 mouth. ity of ANI/B HAMLET/B 17:00: [place] BIFID 58 Medical (PROBIOTIC Branch 4X ORAL) B 2020-10 Yes Take by Univers INFANTIS/B 0-28 mouth. ity of ANI/B HAMLET/B 17:00: [place] BIFID 58 Medical (PROBIOTIC Branch 4X ORAL) B 2020-10 Yes Take by Univers INFANTIS/B 0-28 mouth. ity of ANI/B HAMLET/B 17:00: [place] BIFID 58 Medical (PROBIOTIC Branch 4X ORAL) B 2020-10 Yes Take by Univers INFANTIS/B 0-28 mouth. ity of ANI/B HAMLET/B 17:00: [place] BIFID 58 Medical (PROBIOTIC Branch 4X ORAL) apixaban 5 2020-10 Yes 1358 5mg Take 1 Unive rs mg tablet 0-28 tablet by ity o f 00:00: mouth 2 [place] 00 (two) Medical times Branch daily. Indication s: atrial fibrillati on metoprolol 2020-10 Yes [id number] 100mg Take 1 [facility] succinate 0-28 tablet by ity o f XL 100 mg 00:00: mouth 2 [place] 24 hr 00 (two) Medical tablet times Branch daily. atorvastati 2020-10 Yes [id number] 40mg Take 1 [facility] n 40 mg 0-28 tablet by ity of tablet 00:00: mouth at [place] 00 bedtime. Medical Branch apixaban 5 2020-10 Yes 1358 5mg Take 1 Unive rs mg tablet 0-28 tablet by ity o f 00:00: mouth 2 [place] 00 (two) Medical times Branch daily. Indication s: atrial fibrillati on metoprolol 2020-10 Yes [id number] 100mg Take 1 [facility] succinate 0-28 tablet by ity o f XL 100 mg 00:00: mouth 2 [place] 24 hr 00 (two) Medical tablet times Branch daily. atorvastati 2020-10 Yes [id number] 40mg Take 1 [facility] n 40 mg 0-28 tablet by ity of tablet 00:00: mouth at [place] 00 bedtime. Medical Branch apixaban 5 2020-10 Yes 1358 5mg Take 1 Unive rs mg tablet 0-28 tablet by ity o f 00:00: mouth 2 [place] 00 (two) Medical times Branch daily. Indication s: atrial fibrillati on metoprolol 2020-10 Yes [id number] 100mg Take 1 [facility] succinate 0-28 tablet by ity o f XL 100 mg 00:00: mouth 2 [place] 24 hr 00 (two) Medical tablet times Branch daily. atorvastati 2020-10 Yes [id number] 40mg Take 1 [facility] n 40 mg 0-28 tablet by ity of tablet 00:00: mouth at [place] 00 bedtime. Medical Branch apixaban 5 2020-10 Yes 1358 5mg Take 1 Unive rs mg tablet 0-28 tablet by ity o f 00:00: mouth 2 [place] 00 (two) Medical times Branch daily. Indication s: atrial fibrillati on metoprolol 2020-10 Yes [id number] 100mg Take 1 [facility] succinate 0-28 tablet by ity o f XL 100 mg 00:00: mouth 2 [place] 24 hr 00 (two) Medical tablet times Branch daily. atorvastati 2020-10 Yes [id number] 40mg Take 1 [facility] n 40 mg 0-28 tablet by ity of tablet 00:00: mouth at [place] 00 bedtime. Medical Branch apixaban 5 2020-10 Yes 1358 5mg Take 1 Unive rs mg tablet 0-28 tablet by ity o f 00:00: mouth 2 [place] 00 (two) Medical times Branch daily. Indication s: atrial fibrillati on metoprolol 2020-10 Yes [id number] 100mg Take 1 [facility] succinate 0-28 tablet by ity o f XL 100 mg 00:00: mouth 2 [place] 24 hr 00 (two) Medical tablet times Branch daily. atorvastati 2020-10 Yes [id number] 40mg Take 1 [facility] n 40 mg 0-28 tablet by ity of tablet 00:00: mouth at [place] 00 bedtime. Medical Branch apixaban 5 2020-10 Yes 1358 5mg Take 1 Unive rs mg tablet 0-28 tablet by ity o f 00:00: mouth 2 [place] (two) Medical times Branch daily. Indication s: atrial fibrillati on metoprolol 2020-10 Yes [id number] 100mg Take 1 [facility] succinate 0-28 tablet by ity o f XL 100 mg 00:00: mouth 2 [place] 24 hr 00 (two) Medical tablet times Branch daily. atorvastati 2020-10 Yes [id number] 40mg Take 1 [facility] n 40 mg 0-28 tablet by ity of tablet 00:00: mouth at [place] 00 bedtime. Medical Branch apixaban 5 2020-10 Yes 1358 5mg Take 1 Un[facility] rs mg tablet 0-28 tablet by ity o f 00:00: mouth 2 [place] (two) Medical times Branch daily. Indication s: atrial fibrillati on metoprolol 2020-10 Yes [id number] 100mg Take 1 [facility] succinate 0-28 tablet by ity o f XL 100 mg 00:00: mouth 2 [place] 24 hr 00 (two) Medical tablet times Branch daily. atorvastati 2020-10 Yes [id number] 40mg Take 1 [facility] n 40 mg 0-28 tablet by ity of tablet 00:00: mouth at [place] 00 bedtime. Medical Branch apixaban 5 2020-10 Yes 1358 5mg Take 1 Unive rs mg tablet 0-28 tablet by ity o f 00:00: mouth 2 [place] 00 (two) Medical times Branch daily. Indication s: atrial fibrillati on metoprolol 2020-10 Yes [id number] 100mg Take 1 [facility] succinate 0-28 tablet by ity o f XL 100 mg 00:00: mouth 2 [place] 24 hr 00 (two) Medical tablet times Branch daily. atorvastati 2020-10 Yes [id number] 40mg Take 1 [facility] n 40 mg 0-28 tablet by ity of tablet 00:00: mouth at [place] 00 bedtime. Medical Branch apixaban 2020-10 Yes 1358 5mg Take 1 Unive rs mg tablet 0-28 tablet by ity o f 00:00: mouth 2 [place] 00 (two) Medical times Branch daily. Indication s: atrial fibrillati on metoprolol 2020-10 Yes [id number] 100mg Take 1 [facility] succinate 0-28 tablet by ity o f XL 100 mg 00:00: mouth 2 [place] 24 hr 00 (two) Medical tablet times Branch daily. atorvastati 2020-10 Yes [id number] 40mg Take 1 [facility] n 40 mg 0-28 tablet by ity of tablet 00:00: mouth at [place] 00 bedtime. [facility] apixaban 2020-10 Yes [id number] 5mg Take 1 [facility] mg tablet 0-28 tablet by [facility] o f 00:00: mouth 2 [place] 00 (two) Medical times Branch daily. Indication s: atrial fibrillati on metoprolol 2020-10 Yes [id number] 100mg Take 1 [facility] succinate 0-28 tablet by [facility] o f XL 100 mg 00:00: mouth 2 [place] 24 hr 00 (two) Medical tablet times Branch daily. atorvastati 2020-10 Yes [id number] 40mg Take 1 [facility] n 40 mg 0-28 tablet by [facility] of tablet 00:00: mouth at [place] 00 bedtime. [facility] apixaban 2020-10 Yes [id number] 5mg Take 1 [facility] mg tablet 0-28 tablet by [facility] o f 00:00: mouth 2 [place] 00 (two) Medical times Branch daily. Indication s: atrial fibrillati on metoprolol 2020-10 Yes [id number] 100mg Take 1 [facility] succinate 0-28 tablet by [facility] o f XL 100 mg 00:00: mouth 2 [place] 24 hr 00 (two) Medical tablet times Branch daily. atorvastati 2020-10 Yes [id number] 40mg Take 1 [facility] n 40 mg 0-28 tablet by [facility] tablet 00:00: mouth at [place] 00 bedtime. [facility] apixaban 2020-10 Yes [id number] 5mg Take 1 [facility] mg tablet 0-28 tablet by [facility] o f 00:00: mouth 2 [place] 00 (two) Medical times Branch daily. Indication s: atrial fibrillati on metoprolol 2020-10 Yes [id number] 100mg Take 1 [facility] succinate 0-28 tablet by [facility] o f XL 100 mg 00:00: mouth 2 [place] 24 hr 00 (two) Medical tablet times Branch daily. atorvastati 2020-10 Yes [id number] 40mg Take 1 [facility] n 40 mg 0-28 tablet by [facility] of tablet 00:00: mouth at [place] [address] bedtime. Medical Branch apixaban 5 2020-10 Yes [id number] 5mg Take 1 [facility] mg tablet 0-28 tablet by [facility] o f 00:00: mouth 2 [place] 00 (two) Medical times Branch daily. Indication s: atrial fibrillati on metoprolol 2020-10 Yes [id number] 100mg Take 1 [facility] succinate 0-28 tablet by [facility] o f XL 100 mg 00:00: mouth 2 [place] 24 hr 00 (two) Medical tablet times Branch daily. atorvastati 2020-10 Yes [id number] 40mg Take 1 [facility] n 40 mg 0-28 tablet by [facility] of tablet 00:00: mouth at [place] [address] bedtime. Medical Branch metoprolol 2020-10 Yes [id number] 100mg Take 1 [facility] succinate 0-28 tablet by [facility] o f XL 100 mg 00:00: mouth 2 [place] 24 hr 00 (two) Medical tablet times Branch daily. atorvastati 2020-10 Yes [id number] 40mg Take 1 [facility] n 40 mg 0-28 tablet by [facility] of tablet 00:00: mouth at [place] [address] bedtime. Medical [facility] metoprolol 2020-10 Yes [id number] 100mg Take 1 [facility] succinate 0-28 tablet by [facility] o f XL 100 mg 00:00: mouth 2 [place] 24 hr 00 (two) Medical tablet times Branch daily. atorvastati 2020-10 Yes [id number] 40mg Take 1 [facility] n 40 mg 0-28 tablet by [facility] tablet 00:00: mouth at [place] [address] bedtime. [facility] metoprolol 2020-10 Yes [id number] 100mg Take 1 [facility] succinate 0-28 tablet by [facility] o f XL 100 mg 00:00: mouth 2 [place] 24 hr 00 (two) Medical tablet times Branch daily. atorvastati 2020-10 Yes [id number] 40mg Take 1 [facility] n 40 mg 0-28 tablet by [facility] of tablet 00:00: mouth at [place] [address] bedtime. [facility] metoprolol 2020-10 Yes [id number] 100mg Take 1 [facility] succinate 0-28 tablet by [facility] o f XL 100 mg 00:00: mouth 2 [place] 24 hr 00 (two) Medical tablet times Branch daily. atorvastati 2020-10 Yes [id number] 40mg Take 1 [facility] n 40 mg 0-28 tablet by [facility] of tablet 00:00: mouth at [place] 00 bedtime. [facility] metoprolol 2020-10 Yes [id number] 100mg Take 1 [facility] succinate 0-28 tablet by [facility] o f XL 100 mg 00:00: mouth 2 [place] 24 hr 00 (two) Medical tablet times Branch daily. atorvastati 2020-10 Yes [id number] 40mg Take 1 [facility] n 40 mg 0-28 tablet by [facility] of tablet 00:00: mouth at [place] [address] bedtime. [facility] metoprolol 2020-10 Yes [id number] 100mg Take 1 [facility] succinate 0-28 tablet by [facility] o f XL 100 mg 00:00: mouth 2 [place] 24 hr 00 (two) Medical tablet times Branch daily. atorvastati 2020-10 Yes [id number] 40mg Take 1 [facility] n 40 mg 0-28 tablet by [facility] of tablet 00:00: mouth at [place] [address] bedtime. [facility] metoprolol 2020-10 Yes [id number] 100mg Take 1 [facility] succinate 0-28 tablet by [facility] o f XL 100 mg 00:00: mouth 2 [place] 24 hr 00 (two) Medical tablet times Branch daily. atorvastati 2020-10 Yes [id number] 40mg Take 1 [facility] n 40 mg 0-28 tablet by [facility] tablet 00:00: mouth at [place] [address] bedtime. [facility] metoprolol 2020-10 Yes [id number] 100mg Take 1 [facility] succinate 0-28 tablet by [facility] o f XL 100 mg 00:00: mouth 2 [place] 24 hr 00 (two) Medical tablet times Branch daily. atorvastati 2020-10 Yes [id number] 40mg Take 1 [facility] n 40 mg 0-28 tablet by [facility] of tablet 00:00: mouth at [place] [address] bedtime. [facility] metoprolol 2020-10 Yes [id number] 100mg Take 1 [facility] succinate 0-28 tablet by [facility] o f XL 100 mg 00:00: mouth 2 [place] 24 hr 00 (two) Medical tablet times Branch daily. atorvastati 2020-10 Yes [id number] 40mg Take 1 [facility] n 40 mg 0-28 tablet by [facility] of tablet 00:00: mouth at [place] 00 bedtime. [facility] metoprolol 2020-10 Yes [id number] 100mg Take 1 [facility] succinate 0-28 tablet by [facility] o f XL 100 mg 00:00: mouth 2 [place] 24 hr 00 (two) Medical tablet times Branch daily. atorvastati 2020-10 Yes [id number] 40mg Take 1 [facility] n 40 mg 0-28 tablet by [facility] of tablet 00:00: mouth at [place] 00 bedtime. [facility] metoprolol 2020-10 Yes [id number] 100mg Take 1 [facility] succinate 0-28 tablet by [facility] o f XL 100 mg 00:00: mouth 2 [place] 24 hr 00 (two) Medical tablet times Branch daily. atorvastati 2020-10 Yes [id number] 40mg Take 1 [facility] n 40 mg 0-28 tablet by [facility] of tablet 00:00: mouth at [place] [address] bedtime. [facility] metoprolol 2020-10 Yes [id number] 100mg Take 1 [facility] succinate 0-28 tablet by [facility] o f XL 100 mg 00:00: mouth 2 [place] 24 hr 00 (two) Medical tablet times Branch daily. atorvastati 2020-10 Yes [id number] 40mg Take 1 [facility] n 40 mg 0-28 tablet by [facility] of tablet 00:00: mouth at [place] [address] bedtime. [facility] metoprolol 2020-10 Yes [id number] 100mg Take 1 [facility] succinate 0-28 tablet by [facility] o f XL 100 mg 00:00: mouth 2 [place] 24 hr 00 (two) Medical tablet times Branch daily. atorvastati 2020-10 Yes [id number] 40mg Take 1 [facility] n 40 mg 0-28 tablet by [facility] tablet 00:00: mouth at [place] 00 bedtime. [facility] metoprolol 2020-10 Yes [id number] 100mg Take 1 [facility] succinate 0-28 tablet by [facility] o f XL 100 mg 00:00: mouth 2 [place] 24 hr 00 (two) Medical tablet times Branch daily. atorvastati 2020-10 Yes [id number] 40mg Take 1 [facility] n 40 mg 0-28 tablet by [facility] tablet 00:00: mouth at [place] 00 bedtime. [facility] metoprolol 2020-10 Yes [id number] 100mg Take 1 [facility] succinate 0-28 tablet by [facility] o f XL 100 mg 00:00: mouth 2 [place] 24 hr 00 (two) Medical tablet times Branch daily. atorvastati 2020-10 Yes [id number] 40mg Take 1 [facility] n 40 mg 0-28 tablet by [facility] tablet 00:00: mouth at [place] 00 bedtime. [facility] metoprolol 2020-10 Yes [id number] 100mg Take 1 [facility] succinate 0-28 tablet by [facility] o f XL 100 mg 00:00: mouth 2 [place] 24 hr 00 (two) Medical tablet times Branch daily. atorvastati 2020-10 Yes [id number] 40mg Take 1 [facility] n 40 mg 0-28 tablet by [facility] tablet 00:00: mouth at [place] 00 bedtime. [facility] metoprolol 2020-10 Yes [id number] 100mg Take 1 [facility] succinate 0-28 tablet by [facility] o f XL 100 mg 00:00: mouth 2 [place] 24 hr 00 (two) Medical tablet times Branch daily. atorvastati 2020-10 Yes [id number] 40mg Take 1 [facility] n 40 mg 0-28 tablet by [facility] tablet 00:00: mouth at [place] 00 bedtime. [facility] metoprolol 2020-10 Yes [id number] 100mg Take 1 [facility] succinate 0-28 tablet by [facility] o f XL 100 mg 00:00: mouth 2 [place] 24 hr 00 (two) Medical tablet times Branch daily. atorvastati 2020-10 Yes [id number] 40mg Take 1 [facility] n 40 mg 0-28 tablet by [facility] tablet 00:00: mouth at [place] 00 bedtime. [facility] metoprolol 2020-10 Yes [id number] 100mg Take 1 [facility] succinate 0-28 tablet by [facility] o f XL 100 mg 00:00: mouth 2 [place] 24 hr 00 (two) Medical tablet times Branch daily. atorvastati 2020-10 Yes [id number] 40mg Take 1 [facility] n 40 mg 0-28 tablet by [facility] tablet 00:00: mouth at [place] 00 bedtime. [facility] metoprolol 2020-10 Yes [id number] 100mg Take 1 [facility] succinate 0-28 tablet by [facility] o f XL 100 mg 00:00: mouth 2 [place] 24 hr 00 (two) Medical tablet times Branch daily. atorvastati 2020-10 Yes [id number] 40mg Take 1 [facility] n 40 mg 0-28 tablet by [facility] tablet 00:00: mouth at [place] 00 bedtime. [facility] metoprolol 2020-10 Yes [id number] 100mg Take 1 [facility] succinate 0-28 tablet by [facility] o f XL 100 mg 00:00: mouth 2 [place] 24 hr 00 (two) Medical tablet times Branch daily. atorvastati 2020-10 Yes [id number] 40mg Take 1 [facility] n 40 mg 0-28 tablet by [facility] tablet 00:00: mouth at [place] 00 bedtime. [facility] metoprolol 2020-10 Yes [id number] 100mg Take 1 [facility] succinate 0-28 tablet by [facility] o f XL 100 mg 00:00: mouth 2 [place] 24 hr 00 (two) Medical tablet times Branch daily. atorvastati 2020-10 Yes [id number] 40mg Take 1 [facility] n 40 mg 0-28 tablet by [facility] of tablet 00:00: mouth at [place] 00 bedtime. [facility] metoprolol 2020-10 Yes [id number] 100mg Take 1 [facility] succinate 0-28 tablet by [facility] o f XL 100 mg 00:00: mouth 2 [place] 24 hr 00 (two) Medical tablet times Branch daily. atorvastati 2020-10 Yes [id number] 40mg Take 1 [facility] n 40 mg 0-28 tablet by [facility] of tablet 00:00: mouth at [place] 00 bedtime. [facility] metoprolol 2020-10 Yes [id number] 100mg Take 1 [facility] succinate 0-28 tablet by [facility] o f XL 100 mg 00:00: mouth 2 [place] 24 hr 00 (two) Medical tablet times Branch daily. atorvastati 2020-10 Yes [id number] 40mg Take 1 [facility] n 40 mg 0-28 tablet by [facility] of tablet 00:00: mouth at [place] 00 bedtime. [facility] metoprolol 2020-10 Yes [id number] 100mg Take 1 [facility] succinate 0-28 tablet by [facility] o f XL 100 mg 00:00: mouth 2 [place] 24 hr 00 (two) Medical tablet times Branch daily. atorvastati 2020-10 Yes [id number] 40mg Take 1 [facility] n 40 mg 0-28 tablet by [facility] of tablet 00:00: mouth at [place] 00 bedtime. [facility] metoprolol 2020-10 Yes [id number] 100mg Take 1 [facility] succinate 0-28 tablet by [facility] o f XL 100 mg 00:00: mouth 2 [place] 24 hr 00 (two) Medical tablet times Branch daily. atorvastati 2020-10 Yes [id number] 40mg Take 1 [facility] n 40 mg 0-28 tablet by [facility] of tablet 00:00: mouth at [place] 00 bedtime. [facility] metoprolol 2020-10 Yes [id number] 100mg Take 1 [facility] succinate 0-28 tablet by [facility] o f XL 100 mg 00:00: mouth 2 [place] 24 hr 00 (two) Medical tablet times Branch daily. atorvastati 2020-10 Yes [id number] 40mg Take 1 [facility] n 40 mg 0-28 tablet by [facility] of tablet 00:00: mouth at [place] 00 bedtime. [facility] metoprolol 2020-10 Yes [id number] 100mg Take 1 [facility] succinate 0-28 tablet by [facility]y o f XL 100 mg 00:00: mouth 2 [place] 24 hr 00 (two) Medical tablet times Branch daily. atorvastati 2020-10 Yes [id number] 40mg Take 1 [facility] n 40 mg 0-28 tablet by [facility] of tablet 00:00: mouth at [place] 00 bedtime. [facility] metoprolol 2020-10 Yes [id number] 100mg Take 1 [facility] succinate 0-28 tablet by [facility] o f XL 100 mg 00:00: mouth 2 [place] 24 hr 00 (two) Medical tablet times Branch daily. atorvastati 2020-10 Yes [id number] 40mg Take 1 [facility] n 40 mg 0-28 tablet by [facility] of tablet 00:00: mouth at [place] 00 bedtime. [facility] Branch metoprolol 2020-10 Yes [id number] 100mg Take 1 [facility] succinate 0-28 tablet by [facility] o f XL 100 mg 00:00: mouth 2 [place] 24 hr 00 (two) Medical tablet times Branch daily. atorvastati 2020-10 Yes [id number] 40mg Take 1 [facility] n 40 mg 0-28 tablet by [facility] of tablet 00:00: mouth at [place] 00 bedtime. [facility] Branch metoprolol 2020-10 Yes [id number] 100mg Take 1 [facility] succinate 0-28 tablet by [facility] o f XL 100 mg 00:00: mouth 2 [place] 24 hr 00 (two) Medical tablet times Branch daily. atorvastati 2020-10 Yes [id number] 40mg Take 1 [facility] n 40 mg 0-28 tablet by [facility] of tablet 00:00: mouth at [place] 00 bedtime. [facility] Branch metoprolol 2020-10 Yes [id number] 100mg Take 1 [facility] succinate 0-28 tablet by [facility] o f XL 100 mg 00:00: mouth 2 [place] 24 hr 00 (two) Medical tablet times Branch daily. atorvastati 2020-10 Yes [id number] 40mg Take 1 [facility] n 40 mg 0-28 tablet by [facility] of tablet 00:00: mouth at [place] 00 bedtime. [facility] metoprolol 2020-10 Yes [id number] 100mg Take 1 [facility] succinate 0-28 tablet by [facility] o f XL 100 mg 00:00: mouth 2 [place] 24 hr 00 (two) Medical tablet times Branch daily. atorvastati 2020-10 Yes [id number] 40mg Take 1 [facility] n 40 mg 0-28 tablet by [facility] of tablet 00:00: mouth at [place] 00 bedtime. [facility] metoprolol 2020-10 Yes [id number] 100mg Take 1 [facility] succinate 0-28 tablet by [facility] o f XL 100 mg 00:00: mouth 2 [place] 24 hr 00 (two) Medical tablet times Branch daily. atorvastati 2020-10 Yes [id number] 40mg Take 1 [facility] n 40 mg 0-28 tablet by [facility] of tablet 00:00: mouth at [place] 00 bedtime. [facility] metoprolol 2020-10 Yes [id number] 100mg Take 1 [facility] succinate 0-28 tablet by [facility] o f XL 100 mg 00:00: mouth 2 [place] 24 hr 00 (two) Medical tablet times Branch daily. atorvastati 2020-10 Yes [id number] 40mg Take 1 [facility] n 40 mg 0-28 tablet by [facility] of tablet 00:00: mouth at [place] 00 bedtime. [facility] metoprolol 2020-10 Yes [id number] 100mg Take 1 [facility] succinate 0-28 tablet by [facility] o f XL 100 mg 00:00: mouth 2 [place] 24 hr 00 (two) Medical tablet times Branch daily. atorvastati 2020-10 Yes [id number] 40mg Take 1 [facility] n 40 mg 0-28 tablet by [facility] of tablet 00:00: mouth at [place] 00 bedtime. [facility] metoprolol 2020-10 Yes [id number] 100mg Take 1 [facility] succinate 0-28 tablet by [facility] o f XL 100 mg 00:00: mouth 2 [place] 24 hr 00 (two) Medical tablet times Branch daily. atorvastati 2020-10 Yes [id number] 40mg Take 1 [facility] n 40 mg 0-28 tablet by [facility] of tablet 00:00: mouth at [place] 00 bedtime. [facility] metoprolol 2020-10 Yes [id number] 100mg Take 1 [facility] succinate 0-28 tablet by [facility] o f XL 100 mg 00:00: mouth 2 [place] 24 hr 00 (two) Medical tablet times Branch daily. atorvastati 2020-10 Yes [id number] 40mg Take 1 [facility] n 40 mg 0-28 tablet by [facility] of tablet 00:00: mouth at [place] 00 bedtime. [facility] metoprolol 2020-10 Yes [id number] 100mg Take 1 [facility] succinate 0-28 tablet by [facility] o f XL 100 mg 00:00: mouth 2 [place] 24 hr 00 (two) Medical tablet times Branch daily. atorvastati 2020-10 Yes [id number] 40mg Take 1 [facility] n 40 mg 0-28 tablet by [facility] of tablet 00:00: mouth at [place] 00 bedtime. [facility] metoprolol 2020-10 Yes [id number] 100mg Take 1 [facility] succinate 0-28 tablet by ity o f XL 100 mg 00:00: mouth 2 [place] 24 hr 00 (two) Medical tablet times Branch daily. atorvastati 2020-10 Yes [id number] 40mg Take 1 [facility] n 40 mg 0-28 tablet by [facility] of tablet 00:00: mouth at [place] 00 bedtime. [facility] metoprolol 2020-10 Yes [id number] 100mg Take 1 [facility] succinate 0-28 tablet by [facility]y o f XL 100 mg 00:00: mouth 2 [place] 24 hr 00 (two) Medical tablet times Branch daily. atorvastati 2020-10 Yes [id number] 40mg Take 1 [facility] n 40 mg 0-28 tablet by [facility] of tablet 00:00: mouth at [place] 00 bedtime. [facility] metoprolol 2020-10 Yes [id number] 100mg Take 1 [facility] succinate 0-28 tablet by [facility]y o f XL 100 mg 00:00: mouth 2 [place] 24 hr 00 (two) Medical tablet times Branch daily. atorvastati 2020-10 Yes [id number] 40mg Take 1 [facility] n 40 mg 0-28 tablet by [facility] of tablet 00:00: mouth at [place] 00 bedtime. [facility] metoprolol 2020-10 Yes [id number] 100mg Take 1 [facility] succinate 0-28 tablet by [facility]y o f XL 100 mg 00:00: mouth 2 [place] 24 hr 00 (two) Medical tablet times Branch daily. atorvastati 2020-10 Yes [id number] 40mg Take 1 [facility] n 40 mg 0-28 tablet by [facility] of tablet 00:00: mouth at [place] 00 bedtime. [facility] Branch apixaban 5 2020-10- No 1358 5mg Take 1 [facility] ers mg tablet 0-28 12-06 tablet by [facility] of 00:00: 00:00 mouth 2 [place] 00 :00 (two) Medical times Branch daily. Indication s: atrial fibrillati on apixaban 5 2020-10- No 1358 5mg Take 1 [facility] ers mg tablet 0-28 12-06 tablet by [facility] of 00:00: 00:00 mouth 2 [place] 00 :00 (two) Medical times Branch daily. Indication s: atrial fibrillati on furosemide 2020-10- No [id number] 60mg Take 3 [facility] 20 mg 0-28 06-17 tablets by [facility] of tablet 00:00: 00:00 mouth [place] 00 :00 every Medical morning Branch and evening. VENTOLIN Yes [id number] TAKE 2 [facility] vers HFA 90 8-23 PUFFS BY ity of mcg/actuati 00:00: MOUTH [place] on inhaler 00 EVERY 6 Medica l HOURS Branch NEEDED FOR WHEEZE OR FOR SHORTNESS OF BREATH VENTOLIN 2020-0 Yes [id number] TAKE 2 [facility] HFA 90 8-23 PUFFS BY ity of mcg/actuati 00:00: MOUTH [place] on inhaler 00 EVERY 6 Medica l HOURS Branch NEEDED FOR WHEEZE OR FOR SHORTNESS OF BREATH VENTOLIN 2020-0 Yes [id number] TAKE 2 [facility] HFA 90 8-23 PUFFS BY ity of mcg/actuati 00:00: MOUTH [place] on inhaler 00 EVERY 6 Medica l HOURS Branch NEEDED FOR WHEEZE OR FOR SHORTNESS OF BREATH VENTOLIN 2020-0 Yes [id number] TAKE 2 [facility] HFA 90 8-23 PUFFS BY ity of mcg/actuati 00:00: MOUTH [place] on inhaler 00 EVERY 6 Medica l HOURS Branch NEEDED FOR WHEEZE OR FOR SHORTNESS OF BREATH VENTOLIN 2021-0 Yes [id number] TAKE 2 [facility] HFA 90 8-23 PUFFS BY ity of mcg/actuati 00:00: MOUTH [place] on inhaler 00 EVERY 6 Medica l HOURS Branch NEEDED FOR WHEEZE OR FOR SHORTNESS OF BREATH VENTOLIN 2021-0 Yes [id number] TAKE 2 [facility] HFA 90 8-23 PUFFS BY ity of mcg/actuati 00:00: MOUTH [place] on inhaler 00 EVERY 6 Medica l HOURS Branch NEEDED FOR WHEEZE OR FOR SHORTNESS OF BREATH VENTOLIN 2021-0 Yes [id number] TAKE 2 [facility] HFA 90 8-23 PUFFS BY ity of mcg/actuati 00:00: MOUTH [place] on inhaler 00 EVERY 6 Medica l HOURS Branch NEEDED FOR WHEEZE OR FOR SHORTNESS OF BREATH VENTOLIN 2021-0 Yes [id number] TAKE 2 [facility] HFA 90 8-23 PUFFS BY ity of mcg/actuati 00:00: MOUTH [place] on inhaler 00 EVERY 6 Medica l HOURS Branch NEEDED FOR WHEEZE OR FOR SHORTNESS OF BREATH VENTOLIN 2021-0 Yes [id number] TAKE 2 [facility] HFA 90 8-23 PUFFS BY ity of mcg/actuati 00:00: MOUTH [place] on inhaler 00 EVERY 6 Medica l HOURS Branch NEEDED FOR WHEEZE OR FOR SHORTNESS OF BREATH VENTOLIN 2021-0 Yes [id number] TAKE 2 [facility] HFA 90 8-23 PUFFS BY ity of mcg/actuati 00:00: MOUTH [place] on inhaler 00 EVERY 6 Medica l HOURS Branch NEEDED FOR WHEEZE OR FOR SHORTNESS OF BREATH VENTOLIN 2021-0 Yes [id number] TAKE 2 [facility] HFA 90 8-23 PUFFS BY ity of mcg/actuati 00:00: MOUTH [place] on inhaler 00 EVERY 6 Medica l HOURS Branch NEEDED FOR WHEEZE OR FOR SHORTNESS OF BREATH VENTOLIN 2021-0 Yes [id number] TAKE 2 [facility] HFA 90 8-23 PUFFS BY ity of mcg/actuati 00:00: MOUTH [place] on inhaler 00 EVERY 6 Medica l HOURS Branch NEEDED FOR WHEEZE OR FOR SHORTNESS OF BREATH VENTOLIN 2021-0 Yes [id number] TAKE 2 [facility] HFA 90 8-23 PUFFS BY ity of mcg/actuati 00:00: MOUTH [place] on inhaler 00 EVERY 6 Medica l HOURS Branch NEEDED FOR WHEEZE OR FOR SHORTNESS OF BREATH VENTOLIN 2021-0 Yes [id number] TAKE 2 [facility] HFA 90 8-23 PUFFS BY ity of mcg/actuati 00:00: MOUTH [place] on inhaler 00 EVERY 6 Medica l HOURS Branch NEEDED FOR WHEEZE OR FOR SHORTNESS OF BREATH VENTOLIN 2021-0 Yes [id number] TAKE 2 [facility] HFA 90 8-23 PUFFS BY ity of mcg/actuati 00:00: MOUTH [place] on inhaler 00 EVERY 6 Medica l HOURS Branch NEEDED FOR WHEEZE OR FOR SHORTNESS OF BREATH VENTOLIN 2021-0 Yes [id number] TAKE 2 [facility] HFA 90 8-23 PUFFS BY ity of mcg/actuati 00:00: MOUTH [place] on inhaler 00 EVERY 6 Medica l HOURS Branch NEEDED FOR WHEEZE OR FOR SHORTNESS OF BREATH VENTOLIN 2021-0 Yes [id number] TAKE 2 [facility] HFA 90 8-23 PUFFS BY ity of mcg/actuati 00:00: MOUTH [place] on inhaler 00 EVERY 6 Medica l HOURS Branch NEEDED FOR WHEEZE OR FOR SHORTNESS OF BREATH VENTOLIN 2021-0 Yes [id number] TAKE 2 [facility] HFA 90 8-23 PUFFS BY ity of mcg/actuati 00:00: MOUTH [place] on inhaler 00 EVERY 6 Medica l HOURS Branch NEEDED FOR WHEEZE OR FOR SHORTNESS OF BREATH VENTOLIN 2021-0 Yes [id number] TAKE 2 [facility] HFA 90 8-23 PUFFS BY ity of mcg/actuati 00:00: MOUTH [place] on inhaler 00 EVERY 6 Medica l HOURS Branch NEEDED FOR WHEEZE OR FOR SHORTNESS OF BREATH VENTOLIN 2021-0 Yes [id number] TAKE 2 [facility] HFA 90 8-23 PUFFS BY ity of mcg/actuati 00:00: MOUTH [place] on inhaler 00 EVERY 6 Medica l HOURS Branch NEEDED FOR WHEEZE OR FOR SHORTNESS OF BREATH VENTOLIN 2021-0 Yes [id number] TAKE 2 [facility] HFA 90 8-23 PUFFS BY ity of mcg/actuati 00:00: MOUTH [place] on inhaler 00 EVERY 6 Medica l HOURS Branch NEEDED FOR WHEEZE OR FOR SHORTNESS OF BREATH VENTOLIN 2020-0 Yes [id number] TAKE 2 [facility] HFA 90 8-23 PUFFS BY ity of mcg/actuati 00:00: MOUTH [place] on inhaler 00 EVERY 6 Medica l HOURS Branch NEEDED FOR WHEEZE OR FOR SHORTNESS OF BREATH VENTOLIN 2020-0 Yes [id number] TAKE 2 [facility] HFA 90 8-23 PUFFS BY ity of mcg/actuati 00:00: MOUTH [place] on inhaler 00 EVERY 6 Medica l HOURS Branch NEEDED FOR WHEEZE OR FOR SHORTNESS OF BREATH VENTOLIN 2020-0 Yes [id number] TAKE 2 [facility] HFA 90 8-23 PUFFS BY ity of mcg/actuati 00:00: MOUTH [place] on inhaler 00 EVERY 6 Medica l HOURS Branch NEEDED FOR WHEEZE OR FOR SHORTNESS OF BREATH VENTOLIN 2020-0 Yes [id number] TAKE 2 [facility] vers HFA 90 8-23 PUFFS BY ity of mcg/actuati 00:00: MOUTH [place] on inhaler 00 EVERY 6 Medica l HOURS Branch NEEDED FOR WHEEZE OR FOR SHORTNESS OF BREATH VENTOLIN 2020-0 Yes [id number] TAKE 2 [facility] vers HFA 90 8-23 PUFFS BY ity of mcg/actuati 00:00: MOUTH [place] on inhaler 00 EVERY 6 Medica l HOURS Branch NEEDED FOR WHEEZE OR FOR SHORTNESS OF BREATH VENTOLIN 2020-0 Yes [id number] TAKE 2 [facility] HFA 90 8-23 PUFFS BY ity of mcg/actuati 00:00: MOUTH [place] on inhaler 00 EVERY 6 Medica l HOURS Branch NEEDED FOR WHEEZE OR FOR SHORTNESS OF BREATH VENTOLIN 2020-0 Yes [id number] TAKE 2 [facility] vers HFA 90 8-23 PUFFS BY ity of mcg/actuati 00:00: MOUTH [place] on inhaler 00 EVERY 6 Medica l HOURS Branch NEEDED FOR WHEEZE OR FOR SHORTNESS OF BREATH VENTOLIN 2020-0 2023- No [id number] TAKE 2 [facility] kathy HFA 90 8-23 [...] as mg/0.1 mL 00 ONCE DAILY Medi ojsep (18 mg/3 EVERY Branch mL) MORNING injection [...] Immunizations Ordered Filled Immunization Date Status Comments [facility] e Immunization Name Name TD 2023-01-10 Completed [facility] 00:00:00 [place] [facility] TDAP 2023-01-10 Completed [facility] 00:00:00 [place] [facility] TDAP 2023-01-10 Completed [facility] 00:00:00 [place] [facility] TDAP 2023-01-10 Completed [facility] 00:00:00 [place] [facility] TDAP 2023-01-10 Completed [facility] 00:00:00 [place] [facility] TDAP 2023-01-10 Completed [facility] 00:00:00 [place] [facility] TDAP 2023-01-10 Completed [facility] 00:00:00 [place] [facility] TDAP 2023-01-10 Completed [facility] 00:00:00 [place] [facility] TDAP 2023-01-10 Completed [facility] 00:00:00 [place] [facility] TDAP 2023-01-10 Completed [facility] 00:00:00 [place] [facility] TDAP 2023-01-10 Completed [facility] 00:00:00 [place] [facility] TDAP 2023-01-10 Completed [facility] 00:00:00 [place] [facility] TDAP 2023-01-10 Completed [facility] 00:00:00 [place] [facility] TDAP 2023-01-10 Completed [facility] 00:00:00 [place] [facility] TDAP 2023-01-10 Completed [facility] 00:00:00 [place] [facility] TDAP 2023-01-10 Completed [facility] 00:00:00 [place] [facility] TDAP 2023-01-10 Completed [facility] 00:00:00 [place] [facility] TDAP 2023-01-10 Completed [facility] 00:00:00 [place] [facility] TDAP 2023-01-10 Completed [facility] 00:00:00 [place] [facility] TDAP 2023-01-10 Completed [facility] 00:00:00 [place] [facility] TDAP 2023-01-10 Completed [facility] 00:00:00 [place] [facility] TDAP 2023-01-10 Completed [facility] 00:00:00 [place] [facility] TDAP 2023-01-10 Completed [facility] 00:00:00 [place] [facility] TDAP 2023-01-10 Completed [facility] 00:00:00 [facility] TDAP 2023-01-10 Completed [facility] 00:00:00 [facility] TDAP 2023-01-10 Completed [facility] 00:00:00 [facility] TDAP 2022-01-16 Completed [facility] 00:00:00 [facility] TDAP 2022-01-16 Completed [facility] 00:00:00 [facility] TDAP 2022-01-16 Completed [facility] 00:00:00 [facility] TDAP 2022-01-16 Completed [facility] 00:00:00 [facility] TDAP 2022-01-16 Completed [facility] 00:00:00 [facility] TDAP 2022-01-16 Completed [facility] 00:00:00 [facility] TDAP 2022-01-16 Completed [facility] 00:00:00 [facility] TDAP 2022-01-16 Completed [facility] 00:00:00 [facility] TDAP 2022-01-16 Completed [facility] 00:00:00 [facility] TDAP 2022-01-16 Completed [facility] 00:00:00 [facility] TDAP 2022-01-16 Completed [facility] 00:00:00 [facility] TDAP 2022-01-16 Completed [facility] 00:00:00 [facility] TDAP 2022-01-16 Completed [facility] 00:00:00 [facility] TDAP 2022-01-16 Completed [facility] 00:00:00 [facility] TDAP 2022-01-16 Completed [facility] 00:00:00 [facility] TDAP 2022-01-16 Completed [facility] 00[facility]00:00 [facility] TDAP 2022-01-16 Completed [facility] 00:00:00 [facility] TDAP 2022-01-16 Completed [facility] 00:00:00 [facility] TDAP 2022-01-16 Completed [facility] 00:00:00 [facility] TDAP 2022-01-16 Completed [facility] 00:00:00 [facility] TDAP 2022-01-16 Completed [facility] 00[facility]00:00 [facility] TDAP 2022-01-16 Completed [facility] 00:00:00 [facility] TDAP 2022-01-16 Completed [facility] 00:00:00 [facility] TDAP 2022-01-16 Completed [facility] 00:00:00 [facility] TDAP 2022-01-16 Completed [facility] 00:00:00 [facility] TDAP 2022-01-16 Completed [facility] 00:00:00 [facility] TDAP 2022-01-16 Completed [facility] 00:00:00 [facility] TDAP 2022-01-16 Completed [facility] 00:00:00 [facility] TDAP 2022-01-16 Completed [facility] 00:00:00 [facility] TDAP 2022-01-16 Completed [facility] 00:00:00 [facility] TDAP 2022-01-16 Completed [facility] 00:00:00 [facility] TDAP 2022-01-16 Completed [facility] 00:00:00 [facility] TDAP 2022-01-16 Completed [facility] 00:00:00 [facility] TDAP 2022-01-16 Completed [facility] 00:00:00 [facility] TDAP 2022-01-16 Completed [facility] 00:00:00 [facility] TDAP 2022-01-16 Completed [facility] 00:00:00 [facility] TDAP 2022-01-16 Completed [facility] 00:00:00 [facility] TDAP 2022-01-16 Completed [facility] 00:00:00 [facility] TDAP 2022-01-16 Completed [facility] 00:00:00 [facility] TDAP 2022-01-16 Completed [facility] 00:00:00 [facility] TDAP 2022-01-16 Completed [facility] 00:00:00 [facility] TDAP 2022-01-16 Completed [facility] 00:00:00 [facility] TDAP 2022-01-16 Completed [facility] 00:00:00 [facility] TDAP 2022-01-16 Completed [facility] 00:00:00 [facility] TDAP 2022-01-16 Completed [facility] 00:00:00 [facility] TDAP 2022-01-16 Completed [facility] 00:00:00 [facility] TDAP 2022-01-16 Completed [facility] 00:00:00 [facility] TDAP 2022-01-16 Completed [facility] 00:00:00 [facility] TDAP 2022-01-16 Completed [facility] 00:00:00 [facility] TDAP 2022-01-16 Completed [facility] 00:00:00 [facility] TDAP 2022-01-16 Completed [facility] 00[facility]00:00 [facility] TDAP 2022-01-16 Completed [facility] 00:00:00 [facility] TDAP 2022-01-16 Completed [facility] 00:00:00 [facility] TDAP 2022-01-16 Completed [facility] 00:00:00 [facility] TDAP 2022-01-16 Completed [facility] 00:00:00 [facility] SARS-COV-2 COVID-19 2021-07-12 Completed [facility] VACCINE 00:00:00 [facility] SARS-COV-2 COVID-19 2021-07-12 Completed [facility] VACCINE 00:00:00 [facility] SARS-COV-2 COVID-19 2021-07-12 Completed [facility] VACCINE 00:00:00 [facility] SARS-COV-2 COVID-19 2021-07-12 Completed [facility] VACCINE 00:00:00 [facility] SARS-COV-2 COVID-19 2021-07-12 Completed [facility]ive [facility] of [facility] 12+ YRS 00:00:00 [facility] VACCINE Branch SARS-COV-2 COVID-19 2021-07-12 Completed [facility]ive [facility] of [facility] 12+ YRS 00:00:00 [facility] VACCINE Branch SARS-COV-2 COVID-19 2021-07-12 Completed [facility] of [facility] 12+ YRS 00:00:00 [facility] VACCINE Branch SARS-COV-2 COVID-19 2021-07-12 Completed [facility]ive [facility] of [facility] 12+ YRS 00:00:00 [facility] VACCINE Branch SARS-COV-2 COVID-19 2021-07-12 [...] Unive rsity of [facility]ER[facility] 12+ YRS 00:00:00 [facility] VACCINE Branch SARS-COV-2 COVID-19 2021-07-12 Completed [facility] of [facility] 12+ YRS 00:00:00 [facility] VACCINE Branch SARS-COV-2 COVID-19 2021-07-12 Completed [facility] of [facility] 12+ YRS 00:00:00 [facility] VACCINE Branch SARS-COV-2 COVID-19 2021-07-12 Completed [facility] of [facility] 12+ YRS 00:00:00 [facility] VACCINE Branch SARS-COV-2 COVID-19 2021-07-12 Completed [facility] of [facility] 12+ YRS 00:00:00 [facility] VACCINE Branch SARS-COV-2 COVID-19 2021-07-12 Completed [facility]ive [facility] of [facility] 12+ YRS 00:00:00 [facility] VACCINE Branch SARS-COV-2 COVID-19 2021-07-12 Completed [facility] of [facility] 12+ YRS 00:00:00 [facility] VACCINE Branch Influenza High Dose 2021-06-15 Completed [facility] 00:00:00 [facility] Influenza High Dose 2021-06-15 Completed [facility] 00:00:00 [facility] Influenza High Dose 2021-06-15 Completed [facility] 00:00:00 [facility] Influenza High Dose 2021-06-15 Completed [facility] 00:00:00 [facility] Influenza High Dose 2021-06-15 Completed [facility] 00:00:00 [facility] Influenza High Dose 2021-06-15 Completed [facility] 00:00:00 [facility] Influenza High Dose 2021-06-15 Completed [facility] 00:00:00 [facility] Influenza High Dose 2021-06-15 Completed [facility] 00:00:00 [facility] Influenza High Dose 2021-06-15 Completed [facility] 00:00:00 [facility] Influenza High Dose 2021-06-15 Completed [facility] 00:00:00 [facility] Influenza High Dose 2021-06-15 Completed [facility] 00:00:00 [facility] Influenza High Dose 2021-06-15 Completed [facility] 00:00:00 [facility] Influenza High Dose 2021-06-15 Completed [facility] 00:00:00 [facility] Influenza High Dose 2021-06-15 Completed [facility] 00:00:00 [facility] Influenza High Dose 2021-06-15 Completed [facility] 00:00:00 [facility] Influenza High Dose 2021-06-15 Completed [facility] 00:00:00 [facility] Influenza High Dose 2021-06-15 Completed [facility] 00:00:00 [facility] Influenza High Dose 2021-06-15 Completed [facility] 00:00:00 [facility] Influenza High Dose 2021-06-15 Completed [facility] 00:00:00 [facility] Influenza High Dose 2021-06-15 Completed [facility] 00:00:00 [facility] Influenza High Dose 2021-06-15 Completed [facility] 00:00:00 [facility] Influenza High Dose 2021-06-15 Completed [facility] 00:00:00 [facility] Influenza High Dose 2021-06-15 Completed [facility] 00:00:00 [facility] Influenza High Dose 2021-06-15 Completed [facility] 00:00:00 [facility] Influenza High Dose 2021-06-15 Completed [facility] 00:00:00 [facility] Influenza High Dose 2021-06-15 Completed [facility] 00:00:00 [facility] Influenza High Dose 2021-06-15 Completed [facility] 00:00:00 [facility] Influenza High Dose 2021-06-15 Completed [facility] 00:00:00 [facility] Influenza High Dose 2021-06-15 Completed [facility] 00:00:00 [facility] Influenza High Dose 2021-06-15 Completed [facility] 00:00:00 [facility] Influenza High Dose 2021-06-15 Completed [facility] 00:00:00 [facility] Influenza High Dose 2021-06-15 Completed [facility] 00:00:00 [facility] Influenza High Dose 2021-06-15 Completed [facility] 00:00:00 [facility] Influenza High Dose 2021-06-15 Completed [facility] 00:00:00 [facility] Influenza High Dose 2021-06-15 Completed [facility] 00:00:00 [facility] Influenza High Dose 2021-06-15 Completed [facility] 00:00:00 [facility] Influenza High Dose 2021-06-15 Completed [facility] 00:00:00 [facility] Influenza High Dose 2021-06-15 Completed [facility] 00:00:00 [facility] Influenza High Dose 2021-06-15 Completed [facility] 00:00:00 [facility] Influenza High Dose 2021-06-15 Completed [facility] 00:00:00 [facility] Influenza High Dose 2021-06-15 Completed [facility] 00:00:00 [facility] Influenza High Dose 2021-06-15 Completed [facility] 00:00:00 [facility] Influenza High Dose 2021-06-15 Completed [facility] 00:00:00 [facility] Influenza High Dose 2021-06-15 Completed [facility] 00:00:00 [facility] Influenza High Dose 2021-06-15 Completed [facility] 00:00:00 [facility] Influenza High Dose 2021-06-15 Completed [facility] 00:00:00 [facility] Influenza High Dose 2021-06-15 Completed [facility] 00:00:00 [facility] Influenza High Dose 2021-06-15 Completed [facility] 00:00:00 [facility] Influenza High Dose 2021-06-15 Completed [facility] 00:00:00 [facility] Influenza High Dose 2021-06-15 Completed [facility] 00:00:00 [facility] Influenza High Dose 2021-06-15 Completed [facility] 00:00:00 [facility] Influenza High Dose 2021-06-15 Completed [facility] 00:00:00 [facility] Influenza High Dose 2021-06-15 Completed [facility] 00:00:00 [facility] Influenza High Dose 2021-06-15 Completed [facility] 00:00:00 [facility] Influenza High Dose 2021-06-15 Completed [facility] 00:00:00 [facility] Influenza High Dose 2021-06-15 Completed [facility] 00:00:00 [facility] SARS-COV-2 COVID-19 2020-11-15 Completed [facility] VACCINE 00:00:00 [facility] SARS-COV-2 COVID-19 2020-11-15 Completed [facility] VACCINE 00:00:00 [facility] SARS-COV-2 COVID-19 2020-11-15 Completed [facility] VACCINE 00:00:00 [facility] SARS-COV-2 COVID-19 2020-11-15 Completed [facility] VACCINE 00:00:00 [facility] SARS-COV-2 COVID-19 2020-11-15 Completed [facility] 12+ YRS 00:00:00 [facility] SARS-COV-2 COVID-19 2020-11-15 Completed [facility] of [facility] 12+ YRS 00:00:00 [facility] VACCINE Branch SARS-COV-2 COVID-19 2020-11-15 Completed [facility] 12+ YRS 00:00:00 [facility] SARS-COV-2 COVID-19 2020-11-15 Completed [facility] 12+ YRS 00:00:00 [facility] SARS-COV-2 COVID-19 2020-11-15 Completed [facility] 12+ YRS 00:00:00 [facility] SARS-COV-2 COVID-19 2020-11-15 Completed [facility] of [facility] 12+ YRS 00:00:00 [facility] ical VACCINE Branch SARS-COV-2 COVID-19 2020-11-15 Completed [...] rsity of MODERNA 12+ YRS 00:00:00 [facility] ical VACCINE Branch SARS-COV-2 COVID-19 2020-10-18 Completed [facility] of [facility] 12+ YRS 00:00:00 [facility] VACCINE Branch SARS-COV-2 COVID-19 2020-10-18 Completed [facility] of [facility] 12+ YRS 00:00:00 [facility] VACCINE Branch SARS-COV-2 COVID-19 2020-10-18 Completed [facility] of [facility] 12+ YRS 00:00:00 [facility] VACCINE Branch SARS-COV-2 COVID-19 2020-10-18 Completed [facility] of [facility] 12+ YRS 00:00:00 [facility] VACCINE Branch SARS-COV-2 COVID-19 2020-10-18 Completed [facility] of [facility] 12+ YRS 00:00:00 [facility] VACCINE Branch Influenza High Dose 2020-05-27 Completed [facility] of 00:00:00 [facility] Influenza High Dose 2020-05-27 Completed [facility] 00:00:00 [facility] Influenza High Dose 2020-05-27 Completed [facility] of 00:00:00 [facility] Influenza High Dose 2020-05-27 Completed [facility] 00:00:00 [facility] Influenza High Dose 2020-05-27 Completed [facility] of 00:00:00 [facility] Influenza High Dose 2020-05-27 Completed [facility] 00:00:00 [facility] Influenza High Dose 2020-05-27 Completed [facility] of 00:00:00 [facility] Influenza High Dose 2020-05-27 Completed [facility] 00:00:00 [facility] Influenza High Dose 2020-05-27 Completed [facility] of 00:00:00 [facility] Influenza High Dose 2020-05-27 Completed [facility] 00:00:00 [facility] Influenza High Dose 2020-05-27 Completed [facility] of 00:00:00 [facility] Influenza High Dose 2020-05-27 Completed [facility] 00:00:00 [facility] Influenza High Dose 2020-05-27 Completed [facility] of 00:00:00 [facility] Influenza High Dose 2020-05-27 Completed [facility] 00:00:00 [facility] Influenza High Dose 2020-05-27 Completed [facility] of 00:00:00 [facility] Influenza High Dose 2020-05-27 Completed [facility] 00:00:00 [facility] Influenza High Dose 2020-05-27 Completed [facility] of 00:00:00 [facility] Influenza High Dose 2020-05-27 Completed [facility] 00:00:00 [facility] Influenza High Dose 2020-05-27 Completed [facility] of 00:00:00 [facility] Influenza High Dose 2020-05-27 Completed [facility] 00:00:00 [facility] Influenza High Dose 2020-05-27 Completed [facility] of 00:00:00 [facility] Influenza High Dose 2020-05-27 Completed [facility] 00:00:00 [facility] Influenza High Dose 2020-05-27 Completed [facility] of 00:00:00 [facility] Influenza High Dose 2020-05-27 Completed [facility] 00:00:00 [facility] Influenza High Dose 2020-05-27 Completed [facility] of 00:00:00 [facility] Influenza High Dose 2020-05-27 Completed [facility] 00:00:00 [facility] Influenza High Dose 2020-05-27 Completed [facility] of 00:00:00 [facility] Influenza High Dose 2020-05-27 Completed [facility] 00:00:00 [facility] Influenza High Dose 2020-05-27 Completed [facility] of 00:00:00 [facility] Influenza High Dose 2020-05-27 Completed [facility] 00:00:00 [facility] Influenza High Dose 2020-05-27 Completed [facility] of 00:00:00 [facility] Influenza High Dose 2020-05-27 Completed [facility] 00:00:00 [facility] Influenza High Dose 2020-05-27 Completed [facility] of 00:00:00 [facility] Influenza High Dose 2020-05-27 Completed [facility] 00:00:00 [facility] Influenza High Dose 2020-05-27 Completed [facility] of 00:00:00 [facility] Influenza High Dose 2020-05-27 Completed [facility] 00:00:00 [facility] Influenza High Dose 2020-05-27 Completed [facility] of 00:00:00 [facility] Influenza High Dose 2020-05-27 Completed [facility] 00:00:00 [facility] Influenza High Dose 2020-05-27 Completed [facility] of 00:00:00 [facility] Influenza High Dose 2020-05-27 Completed [facility] 00:00:00 [facility] Influenza High Dose 2020-05-27 Completed [facility] of 00:00:00 [facility] Influenza High Dose 2020-05-27 Completed [facility] 00:00:00 [facility] Influenza High Dose 2020-05-27 Completed [facility] of 00:00:00 [facility] Influenza High Dose 2020-05-27 Completed [facility] 00:00:00 [facility] Influenza High Dose 2020-05-27 Completed [facility] of 00:00:00 [facility] Influenza High Dose 2020-05-27 Completed [facility] 00:00:00 [facility] Influenza High Dose 2020-05-27 Completed [facility] of 00:00:00 [facility] Influenza High Dose 2020-05-27 Completed [facility] 00:00:00 [facility] Influenza High Dose 2020-05-27 Completed [facility] of 00:00:00 [facility] Influenza High Dose 2020-05-27 Completed [facility] 00:00:00 [facility] Influenza High Dose 2020-05-27 Completed [facility] of 00:00:00 [facility] Influenza High Dose 2020-05-27 Completed [facility] 00:00:00 [facility] Influenza High Dose 2020-05-27 Completed [facility] of 00:00:00 [facility] Influenza High Dose 2020-05-27 Completed [facility] 00:00:00 [facility] Influenza High Dose 2020-05-27 Completed [facility] of 00:00:00 [facility] Influenza High Dose 2020-05-27 Completed [facility] 00:00:00 [facility] Influenza High Dose 2020-05-27 Completed [facility] of 00:00:00 [facility] Influenza High Dose 2020-05-27 Completed [facility] 00:00:00 [facility] Influenza High Dose 2020-05-27 Completed [facility] of 00:00:00 [facility] Influenza High Dose 2020-05-27 Completed [facility] 00:00:00 [facility] Influenza High Dose 2020-05-27 Completed [facility] of 00:00:00 [facility] Influenza High Dose 2020-05-27 Completed [facility] 00:00:00 [facility] Influenza High Dose 2020-05-27 Completed [facility] of 00:00:00 [facility] Influenza High Dose 2020-05-27 Completed [facility] 00:00:00 [facility] Influenza High Dose 2020-05-27 Completed [facility] of 00:00:00 [facility] Influenza High Dose 2020-05-27 Completed [facility] 00:00:00 [facility] Influenza High Dose 2020-05-27 Completed [facility] of 00:00:00 [facility] Influenza High Dose 2020-05-27 Completed [facility] 00:00:00 [facility] Influenza High Dose 2020-05-27 Completed [facility] of 00:00:00 [facility] Influenza High Dose 2020-05-27 Completed [facility] 00:00:00 [facility] Influenza High Dose 2020-05-27 Completed [facility] of 00:00:00 [facility] Influenza High Dose 2020-05-27 Completed [facility] 00:00:00 [facility] Influenza High Dose 2020-05-27 Completed [facility] of 00:00:00 [facility] Influenza High Dose 2020-05-27 Completed [facility] 00:00:00 [facility] Influenza High Dose 2020-05-27 Completed [facility] of 00:00:00 [facility] Influenza High Dose 2020-05-27 Completed [facility] 00:00:00 [facility] Influenza High Dose 2020-05-27 Completed [facility] of 00:00:00 [facility] Influenza High Dose 2020-05-27 Completed [facility] 00:00:00 [facility] Influenza High Dose 2020-05-27 Completed [facility] of 00:00:00 [facility] Influenza High Dose 2020-05-27 Completed [facility] 00:00:00 [facility] Influenza High Dose 2020-05-27 Completed [facility] of 00:00:00 [facility] Influenza High Dose 2020-05-27 Completed [facility] 00:00:00 [facility] Influenza High Dose 2020-05-27 Completed [facility] of 00:00:00 [facility] Influenza High Dose 2020-05-27 Completed [facility] 00:00:00 [facility] Influenza High Dose 2020-05-27 Completed [facility] of 00:00:00 [facility] Influenza High Dose 2020-05-27 Completed [facility] 00:00:00 [facility] Influenza High Dose 2020-05-27 Completed [facility] of 00:00:00 [facility] Influenza High Dose 2020-05-27 Completed [facility] 00:00:00 [facility] Influenza High Dose 2020-05-27 Completed [facility] of 00:00:00 [facility] Influenza High Dose 2020-05-27 Completed [facility] 00:00:00 [facility] Influenza High Dose 2020-05-27 Completed [facility] of 00:00:00 [facility] Influenza High Dose 2020-05-27 Completed [facility] 00:00:00 [facility] Influenza High Dose 2020-05-27 Completed [facility] 00:00:00 [facility] Influenza High Dose 2020-05-27 Completed [facility] 00:00:00 [facility] Influenza High Dose 2020-05-27 Completed [facility] 00:00:00 [facility] Influenza High Dose 2020-05-27 Completed [facility] 00:00:00 [facility] Influenza High Dose 2020-05-27 Completed [facility] 00:00:00 [facility] Influenza High Dose 2020-05-27 Completed [facility] 00:00:00 [facility] Influenza High Dose 2020-05-27 Completed [facility] 00:00:00 [facility] Influenza High Dose 2020-05-27 Completed [facility] 00:00:00 [facility] Influenza High Dose 2020-05-27 Completed [facility] 00:00:00 [facility] Influenza High Dose 2020-05-27 Completed [facility] 00:00:00 [facility] Influenza High Dose 2020-05-27 Completed [facility] 00:00:00 [facility] Influenza High Dose 2020-05-27 Completed [facility] 00:00:00 [facility] Influenza High Dose 2020-05-27 Completed [facility] 00:00:00 [facility] Influenza High Dose 2020-05-27 Completed [facility] 00:00:00 [facility] Influenza High Dose 2020-05-27 Completed [facility] 00:00:00 [facility] Influenza High Dose 2020-05-27 Completed [facility] 00[facility]00 [facility] [facility] Influ[facility] Dose 2020-05-27 Completed [facility] 00:00:00 [facility] Influenza High Dose 2020-05-27 Completed [facility] [place] 00:00:00 [facility] Influenza High Dose 2020-05-27 Completed [facility] 00:00:00 [facility] Influenza High Dose 2020-05-27 Completed [facility] [place] 00:00:00 [facility] Zoster Vaccine 2019-12-25 Completed University of Recombinant 00:00:00 [facility] Zoster Vaccine 2019-12-25 Completed [facility] of Recombinant 00:00:00 [facility] Zoster Vaccine 2019-12-25 Completed [facility] of Recombinant 00:00:00 [facility] Zoster Vaccine 2019-12-25 Completed [facility] of Recombinant 00:00:00 [facility] Zoster Vaccine 2019-12-25 Completed [facility] of Recombinant 00:00:00 [facility] Zoster Vaccine 2019-12-25 Completed [facility] of Recombinant 00:00:00 [facility] Zoster Vaccine 2019-12-25 Completed [facility] of Recombinant 00:00:00 [facility] Zoster Vaccine 2019-12-25 Completed [facility] Recombinant 00:00:00 [facility] Zoster Vaccine 2019-12-25 Completed [facility] Recombinant 00:00:00 [facility] Zoster Vaccine 2019-12-25 Completed [facility] Recombinant 00:00:00 [facility] Zoster Vaccine 2019-12-25 Completed [facility] Recombinant 00:00:00 [facility] Zoster Vaccine 2019-12-25 Completed [facility] Recombinant 00:00:00 [facility] Zoster Vaccine 2019-12-25 Completed [facility] of Recombinant 00:00:00 [facility] Zoster Vaccine 2019-12-25 Completed [facility] Recombinant 00:00:00 [facility] Zoster Vaccine 2019-12-25 Completed [facility] Recombinant 00:00:00 [facility] Zoster Vaccine 2019-12-25 Completed [facility] Recombinant 00:00:00 [facility] Zoster Vaccine 2019-12-25 Completed [facility] Recombinant 00:00:00 [facility] Zoster Vaccine 2019-12-25 Completed [facility] Recombinant 00:00:00 [facility] Zoster Vaccine 2019-12-25 Completed [facility] Recombinant 00:00:00 [facility] Zoster Vaccine 2019-12-25 Completed [facility] Recombinant 00:00:00 [facility] Zoster Vaccine 2019-12-25 Completed [facility] Recombinant 00:00:00 [facility] Zoster Vaccine 2019-12-25 Completed [facility] Recombinant 00:00:00 [facility] Zoster Vaccine 2019-12-25 Completed [facility] Recombinant 00:00:00 [facility] Zoster Vaccine 2019-12-25 Completed [facility] Recombinant 00:00:00 [facility] Zoster Vaccine 2019-12-25 Completed [facility] Recombinant 00:00:00 [facility] Zoster Vaccine 2019-12-25 Completed [facility] Recombinant 00:00:00 [facility] Zoster Vaccine 2019-12-25 Completed [facility] Recombinant 00:00:00 [facility] Zoster Vaccine 2019-12-25 Completed [facility] of Recombinant 00:00:00 [facility] Zoster Vaccine 2019-12-25 Completed [facility] Recombinant 00:00:00 [facility] Zoster Vaccine 2019-12-25 Completed [facility] Recombinant 00:00:00 [facility] Zoster Vaccine 2019-12-25 Completed [facility] Recombinant 00:00:00 [facility] Zoster Vaccine 2019-12-25 Completed [facility] Recombinant 00:00:00 [facility] Zoster Vaccine 2019-12-25 Completed [facility] Recombinant 00:00:00 [facility] Zoster Vaccine 2019-12-25 Completed [facility] of Recombinant 00:00:00 [facility] Zoster Vaccine 2019-12-25 Completed [facility] of Recombinant 00:00:00 [facility] Zoster Vaccine 2019-12-25 Completed [facility] Recombinant 00:00:00 [facility] Zoster Vaccine 2019-12-25 Completed [facility] Recombinant 00:00:00 [facility] Zoster Vaccine 2019-12-25 Completed [facility] Recombinant 00:00:00 [facility] Zoster Vaccine 2019-12-25 Completed [facility] Recombinant 00:00:00 [facility] Zoster Vaccine 2019-12-25 Completed [facility] Recombinant 00:00:00 [facility] Zoster Vaccine 2019-12-25 Completed [facility] Recombinant 00:00:00 [facility] Zoster Vaccine 2019-12-25 Completed [facility] Recombinant 00:00:00 [facility] Zoster Vaccine 2019-12-25 Completed [facility] Recombinant 00:00:00 [facility] Zoster Vaccine 2019-12-25 Completed [facility] Recombinant 00:00:00 [facility] Zoster Vaccine 2019-12-25 Completed [facility] Recombinant 00:00:00 [facility] Zoster Vaccine 2019-12-25 Completed [facility] Recombinant 00:00:00 [facility] Zoster Vaccine 2019-12-25 Completed [facility] Recombinant 00:00:00 [facility] Zoster Vaccine 2019-12-25 Completed [facility] of Recombinant 00:00:00 [facility] Zoster Vaccine 2019-12-25 Completed [facility] Recombinant 00:00:00 [facility] Zoster Vaccine 2019-12-25 Completed [facility] Recombinant 00:00:00 [facility] Zoster Vaccine 2019-12-25 Completed [facility] Recombinant 00:00:00 [facility] Zoster Vaccine 2019-12-25 Completed [facility] Recombinant 00:00:00 [facility] Zoster Vaccine 2019-12-25 Completed [facility] Recombinant 00:00:00 [facility] Zoster Vaccine 2019-12-25 Completed [facility] Recombinant 00:00:00 [facility] Zoster Vaccine 2019-12-25 Completed [facility] Recombinant 00:00:00 [facility] Zoster Vaccine 2019-12-25 Completed [facility] Recombinant 00:00:00 [facility] Pneumococcal 13 2019-06-10 Completed Universit y of Conjugate, PCV13 00:00:00 [facility] dical (Prevnar 13) Branch Pneumococcal 13 2019-06-10 Completed [facility]it y of Conjugate, PCV13 00:00:00 [place] [facility] (Prevnar 13) [facility] Pneumococcal 13 2019-06-10 Completed [facility]it y of Conjugate, PCV13 00:00:00 [place] [facility] (Prevnar 13) [facility] Pneumococcal 13 2019-06-10 Completed [facility]it y of Conjugate, PCV13 00:00:00 [place] [facility] (Prevnar 13) [facility] Pneumococcal 13 2019-06-10 Completed [facility]it y of Conjugate, PCV13 00:00:00 [place] [facility] (Prevnar 13) Branch Pneumococcal 13 2019-06-10 Completed [facility]it y of Conjugate, PCV13 00:00:00 [facility] dical (Prevnar 13) Branch Pneumococcal 13 2019-06-10 [...] Universit y of Conjugate, PCV13 00:00:00 [facility] dical (Prevnar 13) Branch Pneumococcal 13 2019-06-10 Completed [facility]it y of Conjugate, PCV13 00:00:00 [place] [facility] (Prevnar 13) [facility] Zoster Vaccine 2019-05-31 Completed [facility] of Recombinant 00:00:00 [facility] Zoster Vaccine 2019-05-31 Completed [facility] of Recombinant 00:00:00 [facility] Zoster Vaccine 2019-05-31 Completed [facility] of Recombinant 00:00:00 [facility] Zoster Vaccine 2019-05-31 Completed [facility] of Recombinant 00:00:00 [facility] Zoster Vaccine 2019-05-31 Completed [facility] Recombinant 00:00:00 [facility] Zoster Vaccine 2019-05-31 Completed [facility] of Recombinant 00:00:00 [facility] Zoster Vaccine 2019-05-31 Completed [facility] of Recombinant 00:00:00 [facility] Zoster Vaccine 2019-05-31 Completed [facility] of Recombinant 00:00:00 [facility] Zoster Vaccine 2019-05-31 Completed [facility] of Recombinant 00:00:00 [facility] Zoster Vaccine 2019-05-31 Completed [facility] of Recombinant 00:00:00 [facility] Zoster Vaccine 2019-05-31 Completed [facility] Recombinant 00:00:00 [facility] Zoster Vaccine 2019-05-31 Completed [facility] of Recombinant 00:00:00 [facility] Zoster Vaccine 2019-05-31 Completed [facility] of Recombinant 00:00:00 [facility] Zoster Vaccine 2019-05-31 Completed [facility] Recombinant 00:00:00 [facility] Zoster Vaccine 2019-05-31 Completed [facility] of Recombinant 00:00:00 [facility] Zoster Vaccine 2019-05-31 Completed [facility] of Recombinant 00:00:00 [facility] Zoster Vaccine 2019-05-31 Completed [facility] of Recombinant 00:00:00 [facility] Zoster Vaccine 2019-05-31 Completed [facility] of Recombinant 00:00:00 [facility] Zoster Vaccine 2019-05-31 Completed [facility] of Recombinant 00:00:00 [facility] Zoster Vaccine 2019-05-31 Completed [facility] of Recombinant 00:00:00 [facility] Zoster Vaccine 2019-05-31 Completed [facility] of Recombinant 00:00:00 [facility] Zoster Vaccine 2019-05-31 Completed [facility] of Recombinant 00:00:00 [facility] Zoster Vaccine 2019-05-31 Completed [facility] of Recombinant 00:00:00 [facility] Zoster Vaccine 2019-05-31 Completed [facility] Recombinant 00:00:00 [facility] Zoster Vaccine 2019-05-31 Completed [facility] Recombinant 00:00:00 [facility] Zoster Vaccine 2019-05-31 Completed [facility] Recombinant 00:00:00 [facility] Zoster Vaccine 2019-05-31 Completed [facility] Recombinant 00:00:00 [facility] Zoster Vaccine 2019-05-31 Completed [facility] Recombinant 00:00:00 [facility] Zoster Vaccine 2019-05-31 Completed [facility] Recombinant 00:00:00 [facility] Zoster Vaccine 2019-05-31 Completed [facility] Recombinant 00:00:00 [facility] Zoster Vaccine 2019-05-31 Completed [facility] Recombinant 00:00:00 [facility] Zoster Vaccine 2019-05-31 Completed [facility] of Recombinant 00:00:00 [facility] Zoster Vaccine 2019-05-31 Completed [facility] of Recombinant 00:00:00 [facility] Zoster Vaccine 2019-05-31 Completed [facility] of Recombinant 00:00:00 [facility] Zoster Vaccine 2019-05-31 Completed [facility] of Recombinant 00:00:00 [facility] Zoster Vaccine 2019-05-31 Completed [facility] Recombinant 00:00:00 [facility] Zoster Vaccine 2019-05-31 Completed [facility] of Recombinant 00:00:00 [facility] Zoster Vaccine 2019-05-31 Completed [facility] of Recombinant 00:00:00 [facility] Zoster Vaccine 2019-05-31 Completed [facility] of Recombinant 00:00:00 [facility] Zoster Vaccine 2019-05-31 Completed [facility] of Recombinant 00:00:00 [facility] Zoster Vaccine 2019-05-31 Completed [facility] of Recombinant 00:00:00 [facility] Zoster Vaccine 2019-05-31 Completed [facility] of Recombinant 00:00:00 [facility] Zoster Vaccine 2019-05-31 Completed [facility] Recombinant 00:00:00 [facility] Zoster Vaccine 2019-05-31 Completed [facility] of Recombinant 00:00:00 [facility] Zoster Vaccine 2019-05-31 Completed [facility] of Recombinant 00:00:00 [facility] Zoster Vaccine 2019-05-31 Completed [facility] Recombinant 00:00:00 [facility] Zoster Vaccine 2019-05-31 Completed [facility] Recombinant 00:00:00 [facility] Zoster Vaccine 2019-05-31 Completed [facility] Recombinant 00:00:00 [facility] Zoster Vaccine 2019-05-31 Completed [facility] Recombinant 00:00:00 [facility] Zoster Vaccine 2019-05-31 Completed [facility] Recombinant 00:00:00 [facility] Zoster Vaccine 2019-05-31 Completed [facility] of Recombinant 00:00:00 [facility] Zoster Vaccine 2019-05-31 Completed [facility] of Recombinant 00:00:00 [facility] Zoster Vaccine 2019-05-31 Completed [facility] of Recombinant 00:00:00 [facility] Zoster Vaccine 2019-05-31 Completed [facility] of Recombinant 00:00:00 [facility] Zoster Vaccine 2019-05-31 Completed [facility] of Recombinant 00:00:00 [facility] Zoster Vaccine 2019-05-31 Completed [facility] Recombinant 00:00:00 [facility] Influenza Virus 2019-05-30 Completed [facility]it [facility] of Vaccine 00:00:00 [facility] Influenza Virus 2019-05-30 Completed [facility] of Vaccine 00:00:00 [facility] Influenza Virus 2019-05-30 Completed [facility] of Vaccine 00:00:00 [facility] Influenza Virus 2019-05-30 Completed [facility] of Vaccine 00:00:00 [facility] Influenza Virus 2019-05-30 Completed [facility] of Vaccine 00:00:00 [facility] Influenza Virus 2019-05-30 Completed [facility] of Vaccine 00:00:00 [facility] Influenza Virus 2019-05-30 Completed [facility] of Vaccine 00:00:00 [facility] Influenza Virus 2019-05-30 Completed [facility] of Vaccine 00:00:00 [facility] Influenza Virus 2019-05-30 Completed [facility] of Vaccine 00:00:00 [facility] Influenza Virus 2019-05-30 Completed [facility] of Vaccine 00:00:00 [facility] Influenza Virus 2019-05-30 Completed [facility] of Vaccine 00:00:00 [facility] Influenza Virus 2019-05-30 Completed [facility] of Vaccine 00:00:00 [facility] Influenza Virus 2019-05-30 Completed [facility] of Vaccine 00:00:00 [facility] Influenza Virus 2019-05-30 Completed [facility] of Vaccine 00:00:00 [facility] Influenza Virus 2019-05-30 Completed [facility] of Vaccine 00:00:00 [facility] Influenza Virus 2019-05-30 Completed [facility] of Vaccine 00:00:00 [facility] Influenza Virus 2019-05-30 Completed [facility] of Vaccine 00:00:00 [facility] Influenza Virus 2019-05-30 Completed [facility] of Vaccine 00:00:00 [facility] Influenza Virus 2019-05-30 Completed [facility] of Vaccine 00:00:00 [facility] Influenza Virus 2019-05-30 Completed [facility] of Vaccine 00:00:00 [facility] Influenza Virus 2019-05-30 Completed [facility] of Vaccine 00:00:00 [facility] Influenza Virus 2019-05-30 Completed [facility] of Vaccine 00:00:00 [facility] Influenza Virus 2019-05-30 Completed [facility] of Vaccine 00:00:00 [facility] Influenza Virus 2019-05-30 Completed [facility] of Vaccine 00:00:00 [facility] Influenza Virus 2019-05-30 Completed [facility] of Vaccine 00:00:00 [facility] Influenza Virus 2019-05-30 Completed [facility] of Vaccine 00:00:00 [facility] Influenza Virus 2019-05-30 Completed [facility] of Vaccine 00:00:00 [facility] Influenza Virus 2019-05-30 Completed [facility] of Vaccine 00:00:00 [facility] Influenza Virus 2019-05-30 Completed [facility] of Vaccine 00:00:00 [facility] Influenza Virus 2019-05-30 Completed [facility] of Vaccine 00:00:00 [facility] Influenza Virus 2019-05-30 Completed [facility] of Vaccine 00:00:00 [facility] Influenza Virus 2019-05-30 Completed [facility] of Vaccine 00:00:00 [facility] Influenza Virus 2019-05-30 Completed [facility] of Vaccine 00:00:00 [facility] Influenza Virus 2019-05-30 Completed [facility] of Vaccine 00:00:00 [facility] Influenza Virus 2019-05-30 Completed [facility] of Vaccine 00:00:00 [facility] Influenza Virus 2019-05-30 Completed [facility] of Vaccine 00:00:00 [facility] Influenza Virus 2019-05-30 Completed [facility] of Vaccine 00:00:00 [facility] Influenza Virus 2019-05-30 Completed [facility] of Vaccine 00:00:00 [facility] Influenza Virus 2019-05-30 Completed [facility] of Vaccine 00:00:00 [facility] Influenza Virus 2019-05-30 Completed [facility] of Vaccine 00:00:00 [facility] Influenza Virus 2019-05-30 Completed [facility] of Vaccine 00:00:00 [facility] Influenza Virus 2019-05-30 Completed [facility] of Vaccine 00:00:00 [facility] Influenza Virus 2019-05-30 Completed [facility] of Vaccine 00:00:00 [facility] Influenza Virus 2019-05-30 Completed [facility] of Vaccine 00:00:00 [facility] Influenza Virus 2019-05-30 Completed [facility] of Vaccine 00:00:00 [facility] Influenza Virus 2019-05-30 Completed [facility] of Vaccine 00:00:00 [facility] Influenza Virus 2019-05-30 Completed [facility] of Vaccine 00:00:00 [facility] Influenza Virus 2019-05-30 Completed [facility] of Vaccine 00:00:00 [facility] Influenza Virus 2019-05-30 Completed [facility] of Vaccine 00:00:00 [facility] Influenza Virus 2019-05-30 Completed [facility] of Vaccine 00:00:00 [facility] Influenza Virus 2019-05-30 Completed [facility] of Vaccine 00:00:00 [facility] Influenza Virus 2019-05-30 Completed [facility] of Vaccine 00:00:00 [facility] Influenza Virus 2019-05-30 Completed [facility] of Vaccine 00:00:00 [facility] Influenza Virus 2019-05-30 Completed [facility] of Vaccine 00:00:00 [facility] Influenza Virus 2019-05-30 Completed [facility] of Vaccine 00:00:00 [facility] Influenza Virus 2019-05-30 Completed [facility] Vaccine 00:00:00 [facility] Zoster(Zostavax)( 2019-05-24 Completed Unive [facility]ity of ingles) 00:00:00 [facility] Zoster(Zostavax)( 2019-05-24 Completed [facility] of ingles) 00:00:00 [facility] Zoster(Zostavax)( 2019-05-24 Completed [facility] of ingles) 00:00:00 [facility] Zoster(Zostavax)( 2019-05-24 Completed [facility] of ingles) 00:00:00 [facility] Zoster(Zostavax)( 2019-05-24 Completed [facility] of ingles) 00:00:00 [facility] Zoster(Zostavax)( 2019-05-24 Completed [facility] of ingles) 00:00:00 [facility] Zoster(Zostavax)( 2019-05-24 Completed [facility]ive [facility] of ingles) 00:00:00 [facility] Zoster(Zostavax)( 2019-05-24 Completed [facility]ive rsity of ingles) 00:00:00 [facility] Zoster(Zostavax)( 2019-05-24 Completed [facility]ive [facility] of ingles) 00:00:00 [facility] Zoster(Zostavax)( 2019-05-24 Completed [facility]ive rs[facility] of ingles) 00:00:00 [facility] Zoster(Zostavax)( 2019-05-24 Completed [facility]ive rsity of ingles) 00:00:00 [facility] Zoster(Zostavax)( 2019-05-24 Completed [facility] of ingles) 00:00:00 [facility] Zoster(Zostavax)( 2019-05-24 Completed [facility]ive rsity of ingles) 00:00:00 [facility] Zoster(Zostavax)( 2019-05-24 Completed [facility]ive rsity of ingles) 00:00:00 [facility] Zoster(Zostavax)( 2019-05-24 Completed Unive rsity of ingles) 00:00:00 [facility] Zoster(Zostavax)( 2019-05-24 Completed Unive rsity of ingles) 00:00:00 [facility] Zoster(Zostavax)( 2019-05-24 Completed [facility]ive rsity of ingles) 00:00:00 [facility] Zoster(Zostavax)( 2019-05-24 Completed [facility]ive rsity of ingles) 00:00:00 [facility] Zoster(Zostavax)( 2019-05-24 Completed [facility] rs[facility] of ingles) 00:00:00 [facility] Zoster(Zostavax)( 2019-05-24 Completed [facility] rs[facility] of ingles) 00:00:00 [facility] Zoster(Zostavax)( 2019-05-24 Completed [facility]ive rsity of ingles) 00:00:00 [facility] Zoster(Zostavax)( 2019-05-24 Completed [facility]ive rsity of ingles) 00:00:00 [facility] Zoster(Zostavax)( 2019-05-24 Completed [facility] of ingles) 00:00:00 [facility] Zoster(Zostavax)( 2019-05-24 Completed [facility]ive rsity of ingles) 00:00:00 [facility] [place] [facility] Zoster(Zostavax)( 2019-05-24 Completed [facility]ive rsity of ingles) 00:00:00 [facility] [place] [facility] Zoster(Zostavax)( 2019-05-24 Completed [facility]ive rs[facility] of ingles) 00:00:00 [facility] Zoster(Zostavax)( 2019-05-24 Completed [facility] rs[facility] of ingles) 00:00:00 [facility] [place] [facility] Zoster(Zostavax)( 2019-05-24 Completed [facility] of ingles) 00:00:00 [facility] Zoster(Zostavax)( 2019-05-24 Completed [facility] of ingles) 00:00:00 [facility] Zoster(Zostavax)( 2019-05-24 Completed [facility] of ingles) 00:00:00 [facility] Zoster(Zostavax)( 2019-05-24 Completed [facility]ive [facility] of ingles) 00:00:00 [facility] Zoster(Zostavax)( 2019-05-24 Completed [facility] of ingles) 00:00:00 [facility] Zoster(Zostavax)( 2019-05-24 Completed [facility] of ingles) 00:00:00 [facility] Zoster(Zostavax)( 2019-05-24 Completed [facility] of ingles) 00:00:00 [facility] Zoster(Zostavax)( 2019-05-24 Completed [facility] of ingles) 00:00:00 [facility] [place] [facility] Zoster(Zostavax)( 2019-05-24 Completed [facility]ive [facility] of ingles) 00:00:00 [facility] Zoster(Zostavax)( 2019-05-24 Completed [facility] of ingles) 00:00:00 [facility] [place] [facility] Zoster(Zostavax)( 2019-05-24 Completed [facility] of ingles) 00:00:00 [facility] Zoster(Zostavax)( 2019-05-24 Completed [facility] of ingles) 00:00:00 [facility] Zoster(Zostavax)( 2019-05-24 Completed [facility] of ingles) 00:00:00 [facility] [place] [facility] Zoster(Zostavax)( 2019-05-24 Completed [facility] of ingles) 00:00:00 [facility] Zoster(Zostavax)( 2019-05-24 Completed [facility] of ingles) 00:00:00 [facility] Zoster(Zostavax)( 2019-05-24 Completed [facility] of ingles) 00:00:00 [facility] Zoster(Zostavax)( 2019-05-24 Completed [facility] of ingles) 00:00:00 [facility] Zoster(Zostavax)( 2019-05-24 Completed [facility] of ingles) 00:00:00 [facility] [place] [facility] Zoster(Zostavax)( 2019-05-24 Completed [facility] of ingles) 00:00:00 [facility] Zoster(Zostavax)( 2019-05-24 Completed [facility] of ingles) 00:00:00 [facility] Zoster(Zostavax)( 2019-05-24 Completed [facility] of ingles) 00:00:00 [facility] Zoster(Zostavax)( 2019-05-24 Completed [facility] of ingles) 00:00:00 [facility] Zoster(Zostavax)( 2019-05-24 Completed [facility] of ingles) 00:00:00 [facility] Zoster(Zostavax)( 2019-05-24 Completed [facility] of ingles) 00:00:00 [facility] Zoster(Zostavax)( 2019-05-24 Completed [facility] of ingles) 00:00:00 [facility] [place] [facility] Zoster(Zostavax)( 2019-05-24 Completed [facility] of ingles) 00:00:00 [facility] [facility] Zoster(Zostavax)( 2019-05-24 Completed Unive rsity of ingles) 00:00:00 [facility] Zoster(Zostavax)( 2019-05-24 Completed Unive rsity of ingles) 00:00:00 [facility] Zoster(Zostavax)( 2019-05-24 Completed Unive rsity of parish) 00:00:00 [facility] [place] [facility] TDAP 2016-10-23 Completed University of 00:00:00 [facility] TDAP 2016-10-23 Completed University of 00:00:00 [place] [facility] TDAP 2016-10-23 Completed University of 00:00:00 [facility] [place] [facility] TDAP 2016-10-23 Completed University of 00:00:00 [facility] TDAP 2016-10-23 Completed University of 00:00:00 [facility] TDAP 2016-10-23 Completed University of 00:00:00 [facility] TDAP 2016-10-23 Completed University of 00:00:00 [facility] TDAP 2016-10-23 Completed University of 00:00:00 [facility] TDAP 2016-10-23 Completed University of 00:00:00 [facility] TDAP 2016-10-23 Completed University of 00:00:00 [facility] TDAP 2016-10-23 Completed University of 00:00:00 [facility] TDAP 2016-10-23 Completed University of 00:00:00 [facility] TDAP 2016-10-23 Completed University of 00:00:00 [facility] TDAP 2016-10-23 Completed University of 00:00:00 [facility] TDAP 2016-10-23 Completed University of 00:00:00 [facility] TDAP 2016-10-23 Completed University of 00:00:00 [facility] TDAP 2016-10-23 Completed University of 00:00:00 [facility] TDAP 2016-10-23 Completed University of 00:00:00 [facility] TDAP 2016-10-23 Completed University of 00:00:00 [facility] TDAP 2016-10-23 Completed University of 00:00:00 [facility] TDAP 2016-10-23 Completed University of 00:00:00 [facility] TDAP 2016-10-23 Completed University of 00:00:00 [facility] TDAP 2016-10-23 Completed University of 00:00:00 [facility] TDAP 2016-10-23 Completed University of 00:00:00 [facility] TDAP 2016-10-23 Completed University of 00:00:00 [facility] TDAP 2016-10-23 Completed University of 00:00:00 [facility] TDAP 2016-10-23 Completed University of 00:00:00 [facility] TDAP 2016-10-23 Completed University of 00:00:00 [facility] TDAP 2016-10-23 Completed University of 00:00:00 [facility] TDAP 2016-10-23 Completed University of 00:00:00 [facility] TDAP 2016-10-23 Completed University of 00:00:00 [facility] TDAP 2016-10-23 Completed University of 00:00:00 [facility] TDAP 2016-10-23 Completed University of 00:00:00 [facility] TDAP 2016-10-23 Completed University of 00:00:00 [facility] TDAP 2016-10-23 Completed University of 00:00:00 [facility] TDAP 2016-10-23 Completed University of 00:00:00 [facility] TDAP 2016-10-23 Completed University of 00:00:00 [facility] TDAP 2016-10-23 Completed University of 00:00:00 [facility] TDAP 2016-10-23 Completed University of 00:00:00 [facility] TDAP 2016-10-23 Completed University of 00:00:00 [facility] TDAP 2016-10-23 Completed University of 00:00:00 [facility] TDAP 2016-10-23 Completed University of 00:00:00 [facility] TDAP 2016-10-23 Completed University of 00:00:00 [facility] TDAP 2016-10-23 Completed University of 00:00:00 [facility] TDAP 2016-10-23 Completed University of 00:00:00 [facility] TDAP 2016-10-23 Completed University of 00:00:00 [facility] TDAP 2016-10-23 Completed University of 00:00:00 [facility] TDAP 2016-10-23 Completed University of 00:00:00 [facility] TDAP 2016-10-23 Completed University of 00:00:00 [facility] TDAP 2016-10-23 Completed University of 00:00:00 [facility] TDAP 2016-10-23 Completed University of 00:00:00 [facility] TDAP 2016-10-23 Completed University of 00:00:00 [facility] TDAP 2016-10-23 Completed University of 00:00:00 [facility] TDAP 2016-10-23 Completed University of 00:00:00 [facility] TDAP 2016-10-23 Completed University 00:00:00 [facility] TDAP 2016-10-23 Completed University 00:00:00 [facility] Vital Signs Vital Name Observation Time Observation Value Comments Source Systolic blood 2023-03-22 12:07:00 116 mm[Hg] Univer sity of pressure [facility] [place] [facility] Diastolic blood 2023-03-22 12:07:00 60 mm[Hg] Unive rsity of pressure [facility] Heart rate 2023-03-22 12:07:00 88 /min Universi ty of [facility] [place] [facility] Respiratory rate 2023-03-22 12:07:00 18 /min Univ ersity of [facility] Body height 2023-03-22 12:07:00 167.6 cm Universi ty of [facility] Body weight 2023-03-22 12:07:00 81.647 kg Universi ty of [facility] [place] [facility] BMI 2023-03-22 12:07:00 29.05 kg/m2 Universi ty of [facility] Oxygen saturation in 2023-03-22 12:07:00 96 /min University of Arterial blood by [facility] Pulse oximetry Branch Systolic blood 2023-02-08 17:51:00 110 mm[Hg] Univer sity of pressure [facility] Diastolic blood 2023-02-08 17:51:00 66 mm[Hg] Unive rsity of pressure [facility] Body height 2023-02-08 17:51:00 167.6 cm Universi ty of [facility] Body weight 2023-02-08 17:51:00 78.245 kg Universi ty of [facility] BMI 2023-02-08 17:51:00 27.84 kg/m2 Universi ty of [facility] Heart rate 2023-02-08 17:51:00 75 /min Universi ty of [facility] Systolic blood 2023-01-19 13:49:00 100 mm[Hg] Univer sity of pressure [facility] Diastolic blood 2023-01-19 13:49:00 65 mm[Hg] Unive rsity of pressure [facility] Heart rate 2023-01-19 13:49:00 79 /min Universi ty of [facility] Body temperature 2023-01-19 13:49:00 37 Paty Univ ersity of [facility] [place] [facility] Body height 2023-01-19 13:49:00 172.7 cm Universi ty of [facility] Body weight 2023-01-19 13:49:00 82.555 kg Universi ty of [facility] BMI 2023-01-19 13:49:00 27.67 kg/m2 Universi ty of [facility] Systolic blood 2023-01-10 18:10:00 127 mm[Hg] Univer sity of pressure [facility] Diastolic blood 2023-01-10 18:10:00 84 mm[Hg] Unive rsity of pressure [facility] Heart rate 2023-01-10 18:10:00 85 /min Universi ty of [facility] Respiratory rate 2023-01-10 18:10:00 15 /min Univ ersity of [facility] Body height 2023-01-10 18:10:00 172.7 cm Universi ty of [place] [facility] [place] Body weight 2023-01-10 18:10:00 83.961 kg Universi ty of [facility] BMI 2023-01-10 18:10:00 28.14 kg/m2 Universi ty of [facility] Systolic blood 2022-11-22 18:33:00 124 mm[Hg] Univer sity of pressure [facility] Diastolic blood 2022-11-22 18:33:00 84 mm[Hg] Unive rsity of pressure [facility] Heart rate 2022-11-22 18:33:00 89 /min Universi ty of [facility] Body height 2022-11-22 18:33:00 167.6 cm Universi ty of [facility] Body weight 2022-11-22 18:33:00 82.464 kg Universi ty of [facility] [place] [facility] BMI 2022-11-22 18:33:00 29.34 kg/m2 Universi ty of [facility] Oxygen saturation in 2022-11-22 18:33:00 94 /min University Arterial blood by [facility] Pulse oximetry Branch Systolic blood 2022-10-31 19:12:00 105 mm[Hg] Univer sity of pressure [facility] Diastolic blood 2022-10-31 19:12:00 55 mm[Hg] Unive rsity of pressure [facility] Heart rate 2022-10-31 19:12:00 109 /min Universi ty of [place] [facility] Body temperature 2022-10-31 19:12:00 37.33 Paty Univ ersity of [facility] Respiratory rate 2022-10-31 19:12:00 18 /min Univ ersity of [facility] [place] [facility] Body height 2022-10-31 19:12:00 175.3 cm Universi ty of [facility] Body weight 2022-10-31 19:12:00 81.557 kg Universi ty of [facility] [place] [facility] BMI 2022-10-31 19:12:00 26.55 kg/m2 Universi ty of [facility] Oxygen saturation in 2022-10-31 19:12:00 94 /min University of Arterial blood by [facility] Pulse oximetry Branch Systolic blood 2022-10-19 15:33:00 110 mm[Hg] Univer sity of pressure [place] [facility] [place] Diastolic blood 2022-10-19 15:33:00 60 mm[Hg] Unive rsity of pressure [place] [facility] [place] Heart rate 2022-10-19 15:33:00 54 /min Universi ty of [facility] Body temperature 2022-10-19 15:33:00 35.83 Paty Univ ersity of [facility] Respiratory rate 2022-10-19 15:33:00 16 /min Univ ersity of [facility] Body height 2022-10-19 15:33:00 172.7 cm Universi ty of [facility] Body weight 2022-10-19 15:33:00 83.643 kg Universi ty of [facility] BMI 2022-10-19 15:33:00 28.04 kg/m2 Universi ty of [facility] Systolic blood 2022-10-05 22:37:00 110 mm[Hg] Univer sity of pressure [facility] Diastolic blood 2022-10-05 22:37:00 64 mm[Hg] Unive rsity of pressure [facility] Heart rate 2022-10-05 22:37:00 80 /min Universi ty of [facility] Body temperature 2022-10-05 22:37:00 36.56 Paty Univ ersity of [facility] Respiratory rate 2022-10-05 22:37:00 18 /min Univ ersity of [facility] Body height 2022-10-05 22:37:00 170.2 cm Universi ty of [facility] Body weight 2022-10-05 22:37:00 80.468 kg Universi ty of [place] [facility] BMI 2022-10-05 22:37:00 27.78 kg/m2 Universi ty of [place] [facility] Oxygen saturation in 2022-10-05 22:37:00 98 /min University of Arterial blood by [facility] Pulse oximetry Branch Heart rate 2022-09-22 15:47:00 71 /min Universi ty of [facility] [place] [facility] Oxygen saturation in 2022-09-22 15:47:00 98 /min University of Arterial blood by [facility] Pulse oximetry Branch Respiratory rate 2022-09-22 15:45:00 15 /min Univ ersity of [facility] [place] [facility] Systolic blood 2022-09-22 15:21:00 105 mm[Hg] Univer sity of pressure [facility] Diastolic blood 2022-09-22 15:21:00 67 mm[Hg] Unive rsity of pressure [facility] Body temperature 2022-09-22 14:46:00 36.39 Paty Univ ersity of [facility] Body height 2022-09-19 21:00:00 172.7 cm Universi ty [facility] [place] [facility] Body weight 2022-09-19 21:00:00 80.287 kg [facility] [place] [facility] BMI 2022-09-19 21:00:00 26.91 kg/m2 [facility] Heart rate 2022-09-22 15:05:00 74 /min [facility] [place] [facility] Respiratory rate 2022-09-22 15:05:00 20 /min Univ ersity of [facility] [place] [facility] Oxygen saturation in 2022-09-22 15:05:00 98 /min University of Arterial blood by [facility] Pulse oximetry Branch Systolic blood 2022-09-22 15:02:00 109 mm[Hg] Univer sity of pressure [facility] Diastolic blood 2022-09-22 15:02:00 59 mm[Hg] Unive rsity of pressure [facility] Body temperature 2022-09-22 14:46:00 36.39 Paty Univ ersity of [facility] [place] [facility] Body height 2022-09-19 21:00:00 172.7 cm Universi ty [facility] Body weight 2022-09-19 21:00:00 80.287 kg Universi ty of [facility] [place] [facility] BMI 2022-09-19 21:00:00 26.91 kg/m2 Universi ty of [facility] [place] [facility] Systolic blood 2022-09-04 15:35:00 108 mm[Hg] Univer sity of pressure [facility] Diastolic blood 2022-09-04 15:35:00 64 mm[Hg] Unive rsity of pressure [facility] Heart rate 2022-09-04 15:35:00 72 /min Universi ty of [facility] Body temperature 2022-09-04 15:35:00 35.83 Paty Univ ersity of [facility] [place] [facility] Respiratory rate 2022-09-04 15:35:00 16 /min Univ ersity of [facility] [place] [facility] Body height 2022-09-04 15:35:00 172.7 cm Universi ty of [facility] Body weight 2022-09-04 15:35:00 81.466 kg Universi ty of [facility] [place] [facility] BMI 2022-09-04 15:35:00 27.31 kg/m2 Universi ty of [facility] Oxygen saturation in 2022-09-04 15:35:00 99 /min University of Arterial blood by [place] [facility] Pulse oximetry Branch Systolic blood 2022-08-16 12:27:00 113 mm[Hg] Univer sity of pressure [facility] Diastolic blood 2022-08-16 12:27:00 74 mm[Hg] Unive rsity of pressure [facility] Heart rate 2022-08-16 12:27:00 70 /min Universi ty of [facility] Body height 2022-08-16 12:27:00 170.2 cm Universi ty of [facility] Body weight 2022-08-16 12:27:00 81.33 kg Universi ty of [place] [facility] BMI 2022-08-16 12:27:00 28.08 kg/m2 Universi ty of [facility] Oxygen saturation in 2022-08-16 12:27:00 97 /min University of Arterial blood by [employer] Pulse oximetry Branch Systolic blood 2022-03-31 14:01:00 115 mm[Hg] Univer sity of pressure [facility] Diastolic blood 2022-03-31 14:01:00 69 mm[Hg] Unive rsity of pressure [facility] Heart rate 2022-03-31 14:01:00 78 /min [facility] Body temperature 2022-03-31 14:01:00 36.44 Paty [facility] Body height 2022-03-31 14:01:00 170.2 cm [facility] Body weight 2022-03-31 14:01:00 89.948 kg [facility] BMI 2022-03-31 14:01:00 31.06 kg/m2 [facility] Oxygen saturation in 2022-03-31 14:01:00 97 /min [facility] blood by [facility] Pulse oximetry Branch Procedures Procedure Date / Time Performing Clinician Source Performed HOME HEALTH - OTHER 2023-03-21 05:01:00 Doctor Unassigned, No Un iversity of [facility] PHYSICIAN CERTIFICATION 2023-02-12 05:01:00 Doctor Unassigned, N o [facility] STATEMENT [facility] HOME HEALTH - OTHER 2023-02-05 05:01:00 Doctor Unassigned, No Un [facility]versity of [facility] HOME HEALTH - OTHER 2023-01-21 05:01:00 Doctor Unassigned, No Un [facility]versity of [facility] TDAP VACCINE, >11 YRS, 2023-01-10 19:36:54 Patricia Garcia [facility] ersity [facility] MASS EXCISION 2022-09-22 13:28:00 Korina Crawford [facility] POCT GLUCOSE (AUTOMATED) 2022-09-22 13:16:00 [facility] 2022-09-22 13:16:00 [facility] EXTERNAL PROVIDER 2022-09-20 06:01:00 Doctor Unassigned, No Univ [facility] [place] RECORDS [facility] NOTICE OF PRIVACY 2022-09-12 20:02:54 Doctor Unassigned, No Univ ersity of [facility] NOTICE OF PRIVACY 2022-09-12 20:02:54 Doctor Unassigned, No Univ ersity [facility] CONSENT/REFUSAL FOR 2022-09-12 20:02:34 Doctor Unassigned, No [facility] [place] DIAGNOSIS AND TREATMENT [facility] CONSENT/REFUSAL FOR 2022-09-12 20:02:34 Doctor Unassigned, No [facility] DIAGNOSIS AND TREATMENT Name Medical [place] ASSIGNMENT OF BENEFITS 2022-09-12 20:02:14 Doctor Unassigned, No [facility] Name [facility] ASSIGNMENT OF BENEFITS 2022-09-12 20:02:14 Doctor Unassigned, No [facility] DISCLOSURE AND CONSENT, 2022-09-04 06:01:00 Doctor Unassigned, N o [facility] MEDICAL AND SURGICAL Name Medical [facility] PROCEDURES DISCLOSURE AND CONSENT, 2022-09-04 06:01:00 Doctor Unassigned, N o [facility] MEDICAL AND SURGICAL Name Medical [facility] PROCEDURES REFERRAL- 2022-03-31 05:01:00 Doctor Unassigned, No [facility] REQUEST/RESPONSE [facility] Encounters Start End Encounter Admission Attending Care Care Encounter Source Date/Time Date/Time Type Type Clinicians Facility Department ID 2023-05-22 2023-05-[address] [facility] [id number] Univers 07:00:00 07:00:00 [facility] 2023-04-02 2023-04-02 [facility]phone [facility] [id number] Univers 00:00:00 00:00:00 [facility] [id number] it y of [place] [id number] Pillo as RAJAN?BLEA [id number] [facility] [address] [place] MEDICAL OFFICE [facility] 2023-03-22 2023-03-22 Sheet Metal Production Worker Lab, Ang - Db [facility] [id number] Univers 07:30:00 07:45:00 Visit Dean Luis [facility] [id number] ity of [place] 4.2.7.2.686 Pillo as RAJAN?BLEA [id number] [facility] [address] [place] MEDICAL OFFICE BUILDING 2023-03-22 2023-03-[address] [facility] [id number] Univers 07:30:00 07:30:00 [facility] 2023-03-22 2023-03-22 Office [facility] [id number] Univers 07:00:00 07:15:00 Visit [facility] [id number] it y of [place] 4.2.7.2.686 Pillo as RAJAN?BLEA [id number] [address] 2023-03-21 2023-03-21 Orders Doctor GOOD 1.2.840.114 [id number] Univers 00:00:00 00:00:00 Only Unassigned, TOY 350.1.13.10 ity of [place] 4.2.7.2.686 Pillo as [id number] [address] 2023-02-12 2023-02-12 Telephone [facility] [id number] Univers 00:00:00 00:00:00 Luis HEALTH 350.1.13.10 [facility] 4.2.7.2.686 Pillo as RAJAN?BLEA [phone] [address] 2023-02-12 2023-02-12 Orders Doctor GOOD 1.2.840.114 [id number] Univers 00:00:00 00:00:00 Only Unassigned, TOY 350.1.13.10 ity of [place] [facility] 4.2.7.2.686 Pillo as [id number] [address] 2023-02-08 2023-02-08 [facility] 1.2.840.114 [id number] Univers 14:45:00 14:45:00 Visit [facility] 350.1.13.10 it y of [place] 4.2.7.2.686 Pillo as RAJAN?BLEA [id number] [address] 2023-02-08 2023-02-[address] [facility] [id number] Univers 14:45:00 13:23:41 LUIS ity of [facility] 2023-02-08 2023-02-08 [facility]phone [facility] [id number] Univers 00:00:00 00:00:00 Luis HEALTH 350.1.13.10 it y of [place] 4.2.7.2.686 Pillo as RAJAN?BLEA [phone] [address] OFFICE [facility] 2023-02-06 2023-02-06 [facility]phone [facility] [id number] Univers 00:00:00 00:00:00 Luis HEALTH 350.1.13.10 it y of [place] 4.2.7.2.686 Pillo as RAJAN?BLEA [id number] [address] OFFICE [facility] 2023-02-06 2023-02-06 Telephone [facility] [id number] Univers 00:00:00 00:00:00 Luis HEALTH 350.1.13.10 [facility] 4.2.7.2.686 Pillo as RAJAN?BLEA [phone] [address] OFFICE [facility] 2023-02-05 2023-02-05 Telephone [facility] [id number] Univers 00:00:00 00:00:00 Luis HEALTH 350.1.13.10 it [facility] 4.2.7.2.686 Pillo as RAJAN?BLEA [phone] [address] 2023-02-05 2023-02-05 Orders Doctor GOOD 1.2.840.114 [id number] Univers 00:00:00 00:00:00 Only Unassigned, TOY 350.1.13.10 ity of [place] [facility] 4.2.7.2.686 Pillo as [phone] [address] 2023-01-24 2023-01-[address] [facility] [id number] Univers 16:00:00 16:00:00 GER ity of [facility] 2023-01-21 2023-01-21 Orders Doctor GOOD 1.2.840.114 [id number] Univers 00:00:00 00:00:00 Only Unassigned, TOY 350.1.13.10 ity of [place] [facility] 4.2.7.2.686 Pillo as [id number] [address] 2023-01-19 2023-01-19 Outpatient R GENA MÉNDEZ [facility] [id number] Univers 08:20:00 10:08:50 GENA MÉNDEZ jayshreealberto [facility] 2023-01-19 2023-01-19 [facility] 1.2.840.114 [id number] Univers 08:20:00 10:08:50 Visit [facility] 350.1.13.10 ity of [place] 4.2.7.2.686 Pilol as RAJAN?BLEA [id number] [address] OFFICE [facility] 2023-01-19 2023-01-19 [facility] 1.2.840.114 [id number] Univers 00:00:00 00:00:00 Outreach Marly Kim HEALTH 350.1.13.10 i ty of [place] 4.2.7.2.686 Pillo as RAJAN?BLEA [id number] [address] OFFICE [facility] 2023-01-19 2023-01-19 [facility]phone [facility] 1.2.840.114 [id number] Univers 00:00:00 00:00:00 [facility] HEALTH 350.1.13.10 it y of [place] 4.2.7.2.686 Pillo as RAJAN?BLEA [id number] [facility] [address] [facility] OFFICE [facility] 2023-01-10 2023-01-10 [facility] [id number] Univers 13:00:00 14:09:46 PATRICIA ity [facility] 2023-01-10 2023-01-10 [facility] 1.2.840.114 [id number] Univers 13:00:00 14:09:46 Visit Patricia A HEALTH 350.1.13.10 i ty of [place] 4.2.7.2.686 Pillo as RAJAN?BLEA [phone] [address] OFFICE [facility] 2022-12-29 2022-12-29 [facility] 1.2.840.114 [id number] Univers 00:00:00 00:00:00 Luis HEALTH 350.1.13.10 it y of [place] 4.2.7.2.686 Pillo as RAJAN?BLEA [id number] [address] OFFICE [facility] 2022-12-28 2022-12-28 Refill [facility] 1.2.840.114 [id number] Univers 00:00:00 00:00:00 Luis HEALTH 350.1.13.10 it y of [place] 4.2.7.2.686 Pillo as RAJAN?BLEA [phone] [address] OFFICE [facility] 2022-11-22 2022-11-22 Office [facility] 1.2.840.114 [id number] Univers 12:30:00 12:45:00 Visit [facility] 350.1.13.10 it y of [place] 4.2.7.2.686 Pillo as RAJAN?BLEA [id number] [address] OFFICE [facility] 2022-11-22 2022-11-22 [facility]patient [facility] [id number] Univers 12:30:00 12:30:00 LUIS [facility] 2022-11-22 2022-11-22 Telephone [facility] [id number] Univers 00:00:00 00:00:00 Luis HEALTH 350.1.13.10 it y of [place] 4.2.7.2.686 Pillo as RAJAN?BLEA [id number] [address] OFFICE [facility] 2022-11-16 2022-11-16 [facility] 1.2.840.114 [id number] Univers 00:00:00 00:00:00 Ulis HEALTH 350.1.13.10 it y of [place] 4.2.7.2.686 Pillo as RAJAN?BLEA [id number] [address] OFFICE [facility] 2022-10-31 2022-10-[address] [facility] [id number] Univers 13:00:00 13:27:26 KORINA [facility] 2022-10-31 2022-10-31 Office Lorin Steward [facility] 1.2.84 [id number] Univers 13:00:00 13:27:26 Visit Korina Crawford 350.1.13.10 ity of [place] [phone] [address] 2022-10-27 2022-10-27 [facility] 1.2.840.114 [id number] Univers 00:00:00 00:00:00 Luis HEALTH 350.1.13.10 it y of [place] 4.2.7.2.686 Pillo as RAJAN?BLEA [phone] [address] OFFICE [facility] 2022-10-19 2022-10-19 [facility] [id number] Univers 09:30:00 10:08:29 KORINA cruz [facility] 2022-10-19 2022-10-19 Office [facility] 1.2.963.929 [id number] Univers 09:30:00 10:08:29 Visit Korina DURBIN 350.1.13.10 i ty of [place] [phone] [address] 2022-10-13 2022-10-13 [facility] 1.2.840.114 [id number] Univers 00:00:00 00:00:00 [facility] 350.1.13.10 it y of [facility] 4.2.7.2.686 Pillo as RAJAN?BLEA [phone] [address] 2022-10-05 2022-10-05 Outpatient [facility] [id number] Univers 16:00:00 17:46:04 KORINA alberto [facility] 2022-10-05 2022-10-05 Office [facility] 1.2.301.914 [id number] Univers 16:00:00 17:46:04 Visit Korina DURBIN 350.1.13.10 i ty [facility] [place] [phone] [place] [address] [facility] 2022-09-22 2022-09-22 Outpatient R [facility] [id number] Univers 06:50:00 11:20:00 KORINA italberto of [facility] 2022-09-22 2022-09-22 [facility] [place] 1.2.840.114 [id number] Univers 06:50:00 11:20:00 Encounter Korina DURBIN 350.1.13.10 ity of [place] SURGICAL [phone] [facility] [address] [place] 2022-09-22 2022-09-22 Surgery [facility] 1.2.654.667 [id number] Univers 07:20:00 09:05:00 Korina DURBIN 350.1.13.10 i ty of [place]ICAL [phone] [facility] [address] [place] 2022-09-20 2022-09-20 Orders Doctor GOOD 1.2.840.114 [id number] Univers 00:00:00 00:00:00 Only Unassigned, TOY 350.1.13.10 ity of [place] [facility] 4.2.7.2.686 Pillo as [phone] [address] 2022-09-11 2022-09-11 Telephone [facility] 1.2.533.343 [id number] Univers 00:00:00 00:00:00 [facility] 350.1.13.10 it y of [place] 4.2.7.2.686 Pillo as RAJAN?BLEA [phone] Nm naren KELLOGG [address] [place] MEDICAL OFFICE [facility] 2022-09-06 2022-09-06 Prep For [facility] 1.2.840.114 [id number] Univers 00:00:00 00:00:00 Surgery Korina DURBIN 350.1.13.10 i ty of [place] [phone] Nm dical NAL 188 [facility] 2022-09-04 2022-09-04 Outpatient R [facility] [id number] Univers 09:30:00 10:08:41 KORINA cruz [facility] 2022-09-04 2022-09-04 Office [facility] 1.2.642.361 [id number] Univers 09:30:00 10:08:41 Visit Korina DURBIN 350.1.13.10 i ty [facility] 4.2.[place] [phone] [address] 2022-09-04 2022-09-04 Telephone [facility] 1.2.840.114 [id number] Univers 00:00:00 00:00:00 Korina DURBIN 350.1.13.10 i ty [facility] 4.2.7.[place] [phone] [address] 2022-08-22 2022-08-22 Telephone [facility] 1.2.443.201 [id number] Univers 00:00:00 00:00:00 [facility] 350.1.13.10 it y of [place] 4.2.7.2.686 Pillo as RAJAN?BLEA [phone] [address] OFFICE [facility] 2022-08-16 2022-08-[address] [facility] [id number] Univers 07:15:00 07:52:47 LUIS cruz [facility] 2022-08-16 2022-08-16 Office [facility] 1.2.840.114 [id number] Univers 07:15:00 07:52:47 Visit [facility] 350.1.13.10 it y of [place] 4.2.7.2.686 Pillo as RAJAN?BLEA [phone] [address] OFFICE [facility] 2022-07-20 2022-07-20 [facility] 1.2.840.114 [id number] Univers 00:00:00 00:00:00 [place] [facility]ALTH 350.1.13.10 it y of [place] 4.2.7.2.686 Pillo as RAJAN?BLEA [phone] Me dical KNEY [address] [place] [address] 2022-03-31 2022-03-[address] [facility] [id number] Univers 09:00:00 10:15:33 PATRICIA cruz [facility] 2022-03-31 2022-03-31 Office [facility] 1.2.840.114 [id number] Univers 09:00:00 10:15:33 Visit Patricia Guadalupe HEALTH 350.1.13.10 i ty of [facility] 4.2.7.2.686 Pillo as RAJAN?BLEA [phone] [address] OFFICE [facility] 2022-03-31 2022-03-31 Telephone [facility] 1.2.153.738 [id number] Univers 00:00:00 00:00:00 Patricia A HEALTH 350.1.13.10 i ty of [facility] 4.2.7.2.686 Pillo as RAJAN?BLEA [phone] [address] 2022-03-31 2022-03-31 Orders Doctor GOOD 1.2.840.114 [id number] Univers 00:00:00 00:00:00 Only Unassigned, TOY 350.1.13.10 ity of [place] [facility] 4.2.7.2.686 Pillo as [phone] [address] 2022-03-30 2022-03-30 Outpatient [facility] [id number] Univers 13:00:00 13:00:00 PATRICIA cruz [facility] 2022-03-01 2022-03-01 Orders Doctor FUNK 1.2.840.114 [id number] Univers 00:00:00 00:00:00 Only Unassigned, TOY 350.1.13.10 ity of [place] [facility] 4.2.7.2.686 Pillo as [phone] [address] 2022-01-16 2022-01-16 Outpatient [facility] [id number] Univers 14:30:00 15:09:22 LUIS cruz [facility] 2022-01-16 2022-01-16 Office [facility] 1.2.840.114 [id number] Univers 14:30:00 15:09:22 Visit [place] HEALTH 350.1.13.10 it y of [facility] 4.2.7.2.686 Pillo as RAJAN?BLEA [phone] [address] MEDICAL OFFICE [facility] 2022-01-16 2022-01-16 Orders Doctor GOOD 1.2.840.114 [id number] Univers 00:00:00 00:00:00 Only Unassigned, TOY 350.1.13.10 ity of [place] [facility] 4.2.7.2.686 Pillo as [phone] [facility] [address] [place] 2022-01-16 2022-01-16 [facility] 1.2.403.271 [id number] Univers 00:00:00 00:00:00 [place] HEALTH 350.1.13.10 it y of [facility] 4.2.7.2.686 Pillo as RAJAN?BLEA [phone] [address] OFFICE [facility] 2021-11-10 2021-11-10 [facility] 1.2.840.114 [id number] Univers 00:00:00 00:00:00 [place] HEALTH 350.1.13.10 it y of [place] 4.2.7.2.686 Pillo as PROFESSIO [phone] [address] OFFICE [facility] ONE 2021-09-14 2021-09-14 Orders Doctor GOOD 1.2.840.114 [id number] Univers 00:00:00 00:00:00 Only Unassigned, TOY 350.1.13.10 ity of [place] [facility] 4.2.7.2.686 Pillo as [phone] [facility] [address] [place] 2021-09-03 2021-09-[address] [facility] 1.2.882.811 [id number] 8634 Univers 00:00:00 00:00:00 Ashlee PRIMARY 350.1.13.10 i ty of [place] [phone] [facility] [address] [place] 2021-09-01 2021-09-[address] [facility] [id number] Univers 09:00:00 09:14:24 LUIS ity of [facility] 2021-09-01 2021-09-01 Office [facility] 1.2.840.114 [id number] Univers 08:47:00 09:14:24 Visit Luis HEALTH 350.1.13.10 it y of [place] 4.2.7.2.686 Pillo as RAJAN?BLEA [phone] [address] OFFICE BUILDING 2021-08-29 2021-08-29 Telephone [facility] 1.2.090.961 [id number] Univers 00:00:00 00:00:00 Lius HEALTH 350.1.13.10 it y of [place] 4.2.7.2.686 Pillo as RAJAN?BLEA [phone] [address] OFFICE [facility] 2021-08-25 2021-08-25 Orders Doctor GOOD 1.2.840.114 [id number] Univers 00:00:00 00:00:00 Only Unassigned, TOY 350.1.13.10 ity of [place] [facility] 4.2.7.2.686 Pillo as [phone] [address] 2021-08-23 2021-08-23 Telephone [facility] 1.2.023.226 [id number] Univers 00:00:00 00:00:00 Luis HEALTH 350.1.13.10 it y of [place] 4.2.7.2.686 Pillo as RAJAN?BLEA [phone] [address] OFFICE [facility] 2021-08-16 2021-08-16 [facility]ill [facility] 1.2.840.114 [id number] 95 Univers 00:00:00 00:00:00 Luis HEALTH 350.1.13.10 it y of [place] 4.2.7.2.686 Pillo as PROFESSIO [phone] [address] OFFICE BUILDING ONE 2021-08-12 2021-08-12 Transition ASTON Bradford 1.2.840.114 [id number] Univers 00:00:00 00:00:00 of Care Kay B CAMPOS 350.1.13.10 it y of [place]2.7.2.[place] [phone] [facility] [address] 2021-08-12 2021-08-[address] [facility] 1.2.840.114 [id number] Univers 00:00:00 00:00:00 Wissam HEALTH 350.1.13.10 it y of [place]2.7.2.[place] FOSTER [phone] [facility] [address] [place] OFFICE BUILDING 2021-08-12 2021-08-12 Telephone [facility] 1.2.891.752 [id number] [id number] Univers 00:00:00 00:00:00 Luis HEALTH 350.1.13.10 it y of [place] 4.2.7.2.686 Pillo as RAJAN?BLEA [phone] [address] MEDICAL OFFICE [facility] 2021-08-04 2021-08-11 Hospital Melecio Carrion 1.2.840.1 14 [id number] Univers 16:20:00 17:00:00 Encounter Sergei Arellano TOY 350. 1.13.10 ity [facility] 4.2 .7.2.686 [place] [phone] [facility] [address] [place] 2021-08-04 2021-08-11 Inpatient X [facility] [id number] Univers 16:20:00 17:00:00 KEN ity [facility] 2021-08-10 2021-08-10 Anesthesia Gil Garber 1.2.840.9 [id number] Univers 12:56:00 13:51:00 Event Cristopher Gamez 95206.1.1 ity of 3.104.2.7 [place] .3.911302 Medica l .[address] [place] 2021-08-04 2021-08-04 Office Carole 1.2.840.7 [id number] [id number] Univers 13:16:05 14:42:39 Visit Tereso 46962.1.1 ity of 3.104.2.7 [place] .3.991996 Medica l .[address] [place] 2021-08-04 2021-08-[address] [facility] [id number] Univers 13:30:00 13:30:00 TERESO cruz [facility] 2021-08-04 2021-08-[address] [facility] 1.2.840.114 [id number] Univers 00:00:00 00:00:00 Luis [facility] 350.1.13.10 it y of [place] 4.2.7.2.686 Pillo as Professio [phone] Nm dical nal [address] [place] Office Building One 2021-08-04 2021-08-04 Travel 1.2.840.1 1.2.107.595 [id number] [id number] Univers 00:00:00 00:00:00 25181.1.1 350.1.13.10 ity of 3.104.2.7 4.[place]7.3.698 [place] .3.922109 084.8 Medica l .[address] [place] 2021-08-04 2021-08-04 Refill Louis, 1.2.840.1 [id number] Univers 00:00:00 00:00:00 Luis 24518.1.1 ity of 3.104.2.7 [place] .3.404354 Medica l .[address] [place] 2021-07-12 2021-07-[address] [facility] [id number] Univers 08:50:00 08:50:00 TONY cruz [facility] 2021-07-12 2021-07-12 Imm/Inj Nurse, Bj Pob Immunization [facility] 1.2.840.114 [id number] Univers 08:49:32 08:49:39 Visit Tony Norton 350.1.13 .10 ity of [place]7.2.[place] Profess[place] [phone] Nm dical nal 421 [facility] 2021-07-12 2021-07-12 Imm/Inj Tony Norton 1.2.840.5 [id number] Univers 08:49:32 08:49:39 Visit Nurse, Adc Pob Immunization 42302.1.1 ity of 3.104.2.7 [place] .3.464570 Medica l .[address] [place] 2021-07-04 2021-07-04 [facility] Louis 1.2.840.5 [id number] 793 Univers 00:00:00 00:00:00 Luis 18946.1.1 ity of 3.104.2.7 [place] .3.264968 Medica l .[address] [place] 2021-07-04 2021-07-04 [facility] 1.2.840.114 [id number] Univers 00:00:00 00:00:00 Luis Health 350.1.13.10 it y of [place] 4.2.7.2.686 Pillo as Professio [phone] Nm dicnory nal [address] [place] Office Building One 2021-06-22 2021-06-22 [facility] 1.2.840.114 [id number] Univers 10:48:09 23:59:00 Encounter Luis [facility] 350.1.13.10 ity of [place] 4.2.7.2.686 Pillo as Rajan?Blea [phone] Nm dical kney [address] [place] Medical Office Building 2021-06-22 2021-06-22 [facility] Louis, 1.2.840.2 [id number] 8231 Univers 10:48:09 23:59:00 Encounter Luis 66123.1.1 it y of 3.104.2.7 [place] .3.907324 Medica l .[address] [place] 2021-06-22 2021-06-22 Sheet Metal Production Worker Luis Dean 1.2.840.1 [id number] Univers 10:43:54 11:32:37 Visit [place] 824[address].1.1 ity of 3.104.2.7 [place] .3.484910 Medica l .[address] [place] 2021-06-22 2021-06-22 Sheet Metal Production Worker Lab, Ang - Db [facility] 1.2.840.1 14 [id number] Univers 10:43:54 10:58:54 Visit Luis Dean [facility] 350.1.13.10 ity of [place] 4.2.7.2.686 Pillo as Rajan?Blea [phone] [facility] [address] [place] Medical Office Building 2021-06-22 2021-06-22 Office Dean, 1.2.840.5 [id number] 527 Univers 10:07:48 10:38:35 Visit Luis 27913.1.1 ity of 3.104.2.7 [place] .3.468750 Medica l .[address] [place] 2021-06-22 2021-06-22 Office [facility] 1.2.840.114 [id number] Univers 10:07:48 10:22:48 Visit Luis [facility] 350.1.13.10 it y of [place] 4.2.7.2.686 Pillo as Rajan?Blea [phone] [address] Office [facility] 2021-06-22 2021-06-22 Outpatient [facility] [id number] Univers 10:15:00 10:15:00 LUIS ity of [facility] 2021-06-22 2021-06-22 Letter Doctor GOOD 1.2.840.114 [id number] Univers 00:00:00 00:00:00 (Out) Unassigned, TOY 350.1.13.10 ity of [place] [facility] 4.2.7.2.686 Pillo as [phone] [facility] [address] [place] 2021-06-22 2021-06-22 Letter Doctor 1.2.840.7 [id number] Univers 00:00:00 00:00:00 (Out) Unassigned, 44512.1.1 ity of [place] 3.104.2.7 [place] .3.506003 Medica l .[address] [place] 2021-06-22 2021-06-22 Travel 1.2.840.1 1.2.344.809 5159 5378 Univers 00:00:00 00:00:00 74529.1.1 350.1.13.10 ity of 3.104.2.7 4.2.7.3.698 [place] .3.096311 084.8 Medica l .8 [place] 2021-06-22 2021-06-22 Letter Doctor GOOD 1.2.840.114 [id number] Univers 00:00:00 00:00:00 (Out) Unassigned, TOY 350.1.13.10 ity of [place] [facility] 4.2.7.2.686 Pillo as [phone] [facility] [address] [place] 2021-06-08 2021-06-08 [facility] 1.2.840.114 [id number] Univers 00:00:00 00:00:00 Luis Health 350.1.13.10 it y of [place] 4.2.7.2.686 Pillo as Professio [phone] [facility] nal [address] [place] [address] One 2021-06-08 2021-06-08 [facility], 1.2.840.0 [id number] 326 Univers 00:00:00 00:00:00 Luis 00495.1.1 ity of 3.104.2.7 [place] .3.345509 Medica l .[address] [place] 2021-06-08 2021-06-08 [facility] 1.2.840.114 [id number] 26 Univers 00:00:00 00:00:00 Luis Health 350.1.13.10 it y of [place] 4.2.7.2.686 Pillo as Professio [phone] Nm dicdc nal [address] [place] [address] One 2021-06-04 2021-06-04 [facility] 1.2.840.114 [id number] Univers 00:00:00 00:00:00 Luis Health 350.1.13.10 it y of [place] 4.2.7.2.686 Pillo as Professio [phone] Nm dicdc nal [address] [place] [address] One 2021-06-04 2021-06-04 Natalie Dean, 1.2.840.1 [id number] Univers 00:00:00 00:00:00 Luis 30260.1.1 ity of 3.104.2.7 [place] .3.748315 Medica l .[address] [place] 2021-05-12 2021-05-12 Natalie Dean [facility] 1.2.840.114 [id number] Univers 00:00:00 00:00:00 Luis Health 350.1.13.10 it y of [place] 4.2.7.2.686 Pillo as Professio [phone] [address] Office [facility] One 2021-05-12 2021-05-12 Refill Louis, 1.2.840.1 [id number] Univers 00:00:00 00:00:00 Luis 88319.1.1 ity of 3.104.2.7 [place] .3.956905 Medica l .[address] [place] 2021-04-04 2021-04-04 Sheet Metal Production Worker Lab, Adc Fam Pob I [facility] 1.2. 840.114 [id number] Univers 10:44:04 11:04:04 [facility] 350.1.13.10 ity of [place] 4.2.7.2.686 Pillo as Professio [phone] [facility] nal [address] [place] [address] One 2021-04-04 2021-04-04 Office [facility] 1.2.840.114 [id number] Univers 10:11:45 10:26:45 Visit [facility] 350.1.13.10 it y of [place] 4.2.7.2.686 Pillo as Professio [phone] [facility] nal [address] [place] [address] One 2021-04-04 2021-04-[address] [facility] [id number] Univers 10:15:00 10:15:00 LUIS ity of [facility] 2021-03-28 2021-03-28 Telephone [facility] 1.2.472.926 [id number] Univers 00:00:00 00:00:00 [facility] 350.1.13.10 it y of [place] 4.2.7.2.686 Pillo as Professio [phone] [address] Office [facility] One 2021-03-18 2021-03-18 Telephone [facility] 1.2.022.378 [id number] 4475 Univers 00:00:00 00:00:00 Luis Health 350.1.13.10 it y of [place] 4.2.7.2.686 Pillo as Professio [phone] [address] Office [facility] One 2021-03-15 2021-03-[address] [facility] 1.2.840.114 [id number] Univers 00:00:00 00:00:00 Luis Health 350.1.13.10 it y of [place] 4.2.7.2.686 Pillo as Professio [phone] [address] Office [facility] One 2021-02-19 2021-02-19 [facility] 1.2.840.114 [id number] Univers 00:00:00 00:00:00 Luis Health 350.1.13.10 it y of [place] 4.2.7.2.686 Pillo as Professio [phone] [address] Office [facility] One 2021-02-16 2021-02-16 Orders Doctor GOOD 1.2.840.114 [id number] Univers 00:00:00 00:00:00 Only Unassigned, TOY 350.1.13.10 ity of [place] [facility] 4.2.7.2.686 Pillo as [phone] [address] 2021-02-05 2021-02-05 [facility] 1.2.840.114 [id number] 01 Univers 00:00:00 00:00:00 [facility] 350.1.13.10 it y of [place] 4.2.7.2.686 Pillo as Professio [phone] [address] Office [facility] One 2021-01-28 2021-01-[address] [facility] [id number] Univers 17:00:00 17:00:00 ity of [facility] 2021-01-28 2021-01-[address] [facility] [id number] Univers 10:20:00 10:20:00 ity of [facility] 2021-01-28 2021-01-28 Nurse Nurse, [facility] 1.2 .840.114 [id number] Univers 09:57:42 10:12:42 Visit Sonja Lamthia [facility] 350.1.13.10 ity of [place] 4.2.7.2.686 Pillo as Professio [phone] [address] Office [facility] One 2021-01-28 2021-01-28 Orders Doctor GOOD 1.2.840.114 [id number] Univers 00:00:00 00:00:00 Only Unassigned, TOY 350.1.13.10 ity of [place] [facility] 4.2.7.2.686 Pillo as [phone] [address] 2021-01-11 2021-01-[address] [facility] 1.2.840.114 [id number] Univers 00:00:00 00:00:00 Luis Health 350.1.13.10 it y of [place] 4.2.7.2.686 Pillo as Professio [phone] [address] Office [facility] One 2020-12-03 2020-12-03 Natalie Dean PRHAROON 1.2.840.114 [id number] Univers 00:00:00 00:00:00 [facility] 350.1.13.10 it y of [place] 4.2.7.2.686 Pillo as Professio [phone] [address] One 2020-11-15 2020-11-[address] [facility] [id number] Univers 11:10:00 11:10:00 NARENDRA ity of [facility] 2020-11-12 2020-11-12 Refaudrey Dean PRHAROON 1.2.840.114 [id number] Univers 00:00:00 00:00:00 [facility] 350.1.13.10 it y of [place] 4.2.7.2.686 Pillo as Professio [phone] [address] Office [facility] One 2020-10-29 2020-10-[address] [facility] 1.2.103.920 [id number] [id number] Univers 00:00:00 00:00:00 Luis Health 350.1.13.10 it y of [place] 4.2.7.2.686 Pillo as Professio [phone] [address] Office [facility] One 2020-10-28 2020-10-28 [facility] 1.2.840.114 [id number] Univers 00:00:00 00:00:00 Luis Health 350.1.13.10 it y of [place] 4.2.7.2.686 Pillo as Professio [phone] [address] One 2020-10-18 2020-10-18 Office [facility] 1.2.840.114 [id number] Univers 11:25:44 12:22:59 Visit Luis Health 350.1.13.10 it y of [place] 4.2.7.2.686 Pillo as Professio [phone] [address] One 2020-10-18 2020-10-18 Outpatient Maria [facility] [id number] Univers 12:15:00 12:15:00 LUIS [facility] 2020-10-09 2020-10-09 [facility] 1.2.840.114 [id number] Univers 00:00:00 00:00:00 Luis Health 350.1.13.10 it y of [place] 4.2.7.2.686 Pillo as Professio [phone] [address] One 2020-09-21 2020-09-21 [facility]ici [facility] 1.2.840.114 [id number] Univers 09:30:27 09:45:27 ne Visit [facility] 350.1.13.10 i ty of [place] 4.2.7.2.686 Pillo as Professio [phone] [address] One 2020-09-21 2020-09-21 Outpatient [facility] [id number] Univers 09:45:00 09:45:00 LUIS alberto [facility] 2020-09-19 2020-09-19 [facility] 1.2.840.114 [id number] Univers 00:00:00 00:00:00 [facility] [id number] it y [facility] [place] [id number] Pillo as Professio [phone] Nm jerrydc nal [address] [place] [address] Office Building One 2020-09-05 2020-09-[address] [facility] 1.2.840.114 [id number] Univers 00:00:00 00:00:00 [facility] [id number] it y [facility] [place] [id number] Pillo as Professio [phone] Nm jerrydc nal [address] [place] [address] Office Building One 2020-08-30 2020-08-30 Natalie Dean, [facility] 1.2.840.114 [id number] Univers 00:00:00 00:00:00 [facility] [id number] it y [facility] [place] [id number] Pillo as Professio [phone] Nm jerrydc nal [address] [place] [address] Office Building One 2020-08-18 2020-08-18 [facility] 1.2.840.114 [id number] Univers 00:00:00 00:00:00 [facility] 350.1.13.10 it y of [place] [id number] Pillo as Professio [phone] [facility] nal [address] [place] [address] Office Building One 2020-08-03 2020-08-03 [facility] 1.2.840.114 [id number] 00:00:00 00:00:00 [facility] 350.1.13.10 [place] 4.2.7.2.686 Professio [phone] [place] [address] Office Building One 2020-08-03 2020-08-03 [facility] 1.2.840.114 [id number] Univers 00:00:00 00:00:00 [facility] 350.1.13.10 it [facility] [place] [id number] Pillo as Professio [phone] [facility] nal [address] [place] [address] Office Building One 2020-08-01 2020-08-01 [facility] 1.2.840.114 [id number] Univers 00:00:00 00:00:00 [facility] 350.1.13.10 it [facility] [place] 4.2.7.2.686 Pillo as Professio [phone] [address] Office [facility] 2020-08-01 2020-08-[address] [facility] 1.2.840.114 [id number] 00:00:00 00:00:00 [facility] 350.1.13.10 [place] 4.2.7.2.686 Professio [phone] [place] [address] Office [facility] 2020-07-08 2020-07-08 Refaudrey Dean, [facility] 1.2.840.114 [id number] 02 Univers 00:00:00 00:00:00 [facility] 350.1.13.10 it y of [place] 4.2.7.2.686 Pillo as Professio [phone] [address] Office [facility] 2020-07-08 2020-07-08 Refill Louis, [facility] 1.2.840.114 [id number] 02 00:00:00 00:00:00 [facility] 350.1.13.10 [place] 4.2.7.2.686 Professio [phone] [address] 2020-06-25 2020-06-25 Orders Doctor GOOD 1.2.840.114 [id number] Univers 00:00:00 00:00:00 Only Unassigned, TOY 350.1.13.10 ity of [place] [facility] 4.2.7.2.686 Pillo as [phone] [address] 2020-06-25 2020-06-25 Orders Doctor GOOD 1.2.840.114 [id number] 78 00:00:00 00:00:00 Only Unassigned, TOY 350.1.13.10 [place] [facility] 4.2.7.2.686 [phone] 009 2020-06-01 2020-06-01 Refaudrey Dean, [facility] 1.2.840.114 [id number] 42 Univers 00:00:00 00:00:00 [facility] 350.1.13.10 it y of [place] 4.2.7.2.686 Pillo as Professio [phone] [address] Office [facility] 2020-06-01 2020-06-01 Refaudrey Dean, [facility] 1.2.840.114 [id number] 42 00:00:00 00:00:00 [facility] 350.1.13.10 [place] 4.2.7.2.686 Professio [phone] [place] [address] Office Building One 2020-05-30 2020-05-[address] [facility] 1.2.840.114 [id number] 88 Univers 00:00:00 00:00:00 [facility] 350.1.13.10 it y of [place] 4.2.7.2.686 Pillo as Professio [phone] [address] Office Building One 2020-05-30 2020-05-30 [facility] 1.2.840.114 [id number] 88 00:00:00 00:00:00 [facility] 350.1.13.10 [place] 4.2.7.2.686 Professio [phone] [place] [address] Office Building One 2020-05-22 2020-05-22 [facility] 1.2.840.114 [id number] 32 Univers 00:00:00 00:00:00 [facility] 350.1.13.10 it y of [place] 4.2.7.2.686 Pillo as Professio [phone] [address] Office Building One 2020-05-22 2020-05-22 Natalie Dean, [facility] 1.2.840.114 [id number] 32 00:00:00 00:00:00 [facility] 350.1.13.10 [place] 4.2.7.2.686 Professio [phone] [place] [address] Office Building One 2020-05-07 2020-05-07 Natalie Dean, [facility] 1.2.840.114 [id number] 25 Univers 00:00:00 00:00:00 [facility] 350.1.13.10 it y of [place] 4.2.7.2.686 Pillo as Professio [phone] [address] Office Building One 2020-05-07 2020-05-07 Natalie Dean, [facility] 1.2.840.114 [id number] 25 00:00:00 00:00:00 [facility] 350.1.13.10 [place] 4.2.7.2.686 Professio [phone] [place] [address] Office Building One 2020-04-19 2020-04-19 [facility] 1.2.840.114 [id number] 67 00:00:00 00:00:00 [facility] 350.1.13.10 [place] 4.2.7.2.686 Professio [phone] [place] [address] Office Building One 2020-04-19 2020-04-19 [facility] 1.2.840.114 [id number] 67 Univers 00:00:00 00:00:00 [facility] 350.1.13.10 it y of [place] 4.2.7.2.686 Pillo as Professio [phone] [address] Office [facility] 2020-03-18 2020-03-18 [facility] 1.2.840.114 [id number] 22 00:00:00 00:00:00 [facility] 350.1.13.10 [place] 4.2.7.2.686 Professio [phone] [place] [address] Office Building One 2020-03-18 2020-03-18 [facility] 1.2.840.114 [id number] 22 Univers 00:00:00 00:00:00 [facility] 350.1.13.10 it y of [place] 4.2.7.2.686 Pillo as Professio [phone] [address] Office [facility] 2020-03-10 2020-03-10 [facility] 1.2.840.114 [id number] 05 00:00:00 00:00:00 [facility] 350.1.13.10 [place] 4.2.7.2.686 Professio [phone] [place] [address] Office Building One 2020-03-10 2020-03-10 Natalie Dean, [facility] 1.2.840.114 [id number] 05 Univers 00:00:00 00:00:00 [facility] 350.1.13.10 it y of [place] 4.2.7.2.686 Pillo as Professio [phone] [address] Office Building One 2020-02-25 2020-02-25 Natalie Dean, [facility] 1.2.840.114 [id number] 63 00:00:00 00:00:00 [facility] 350.1.13.10 [place] 4.2.7.2.686 Professio [phone] [place] [address] Office Building One 2020-02-25 2020-02-25 Natalie Dean [facility] 1.2.840.114 [id number] 63 Univers 00:00:00 00:00:00 [facility] 350.1.13.10 it y of [place] 4.2.7.2.686 Pillo as Professio [phone] [address] Office Building One 2020-02-23 2020-02-23 Natalie Dean, [facility] 1.2.840.114 [id number] 97 00:00:00 00:00:00 [facility] 350.1.13.10 [place] 4.2.7.2.686 Professio [phone] [place] [address] Office Building One 2020-02-23 2020-02-23 Natalie Dean, [facility] 1.2.840.114 [id number] 97 Univers 00:00:00 00:00:00 [facility] 350.1.13.10 it y of [place] 4.2.7.2.686 Pillo as Professio [phone] [facility] nal [address] [place] [address] Office Building One 2020-01-28 2020-01-28 Natalie Dean, [facility] 1.2.840.114 [id number] 87 00:00:00 00:00:00 [facility] 350.1.13.10 [place] 4.2.7.2.686 Professio [phone] [place] [address] Office Building One 2020-01-28 2020-01-28 Natalie Dean, [facility] 1.2.840.114 [id number] 87 Univers 00:00:00 00:00:00 [facility] 350.1.13.10 it y of [place] 4.2.7.2.686 Pillo as Professio [phone] [facility] nal [address] [place] [address] Office Building One 2019-12-30 2019-12-30 Natalie Dean, [facility] 1.2.840.114 [id number] 78 00:00:00 00:00:00 [facility] 350.1.13.10 [place] 4.2.7.2.686 Professio [phone] [place] [address] Office [facility] 2019-12-30 2019-12-30 Natalie Dean [facility] 1.2.840.114 [id number] 78 Univers 00:00:00 00:00:00 [facility] 350.1.13.10 it y of [place] 4.2.7.2.686 Pillo as Professio [phone] [address] Office [facility] 2019-12-21 2019-12-[address] [facility] 1.2.840.114 [id number] 25 00:00:00 00:00:00 [facility] 350.1.13.10 [place] 4.2.7.2.686 Professio [phone] [address] 2019-12-21 2019-12-21 [facility] 1.2.840.114 [id number] 25 Univers 00:00:00 00:00:00 [facility] 350.1.13.10 it y of [place] 4.2.7.2.686 Pillo as Professio [phone] [address] 2019-12-11 2019-12-11 Orders Doctor GOOD 1.2.840.114 [id number] 39 00:00:00 00:00:00 Only Unassigned, TOY 350.1.13.10 [place] [facility] 4.2.7.2.686 [phone] [facility] 2019-12-11 2019-12-11 Orders Doctor GOOD 1.2.840.114 [id number] 39 Univers 00:00:00 00:00:00 Only Unassigned, TOY 350.1.13.10 ity of [place] [facility] 4.2.7.2.686 Pillo as [phone] [address] 2019-12-08 2019-12-08 [facility] 1.2.767.667 [id number] 00:00:00 00:00:00 [facility] 350.1.13.10 [place] 4.2.7.2.686 Professio [phone] nal [facility] Office Building One 2019-12-08 2019-12-08 Rashel Dean [facility] 1.2.244.939 [id number] Univers 00:00:00 00:00:00 [facility] 350.1.13.10 it y of [place] 4.2.7.2.686 Pillo as Professio [phone] Nm dic[address] Office Building One 2019-12-02 2019-12-02 Refaudrey Dean [facility] 1.2.840.114 [id number] 28 00:00:00 00:00:00 [facility] 350.1.13.10 [place] 4.2.7.2.686 Professio [phone] [place] [address] Office Building One 2019-12-02 2019-12-[address] [facility] 1.2.840.114 [id number] 28 Univers 00:00:00 00:00:00 [facility] 350.1.13.10 it y of [place] 4.2.7.2.686 Pillo as Professio [phone] [address] Office Building One 2019-11-10 2019-11-10 Natalie Dean [facility] 1.2.840.114 [id number] 18 00:00:00 00:00:00 [facility] 350.1.13.10 [place] 4.2.7.2.686 Professio [phone] [place] [address] Office Building One 2019-11-10 2019-11-[address] [facility] 1.2.840.114 [id number] 18 Univers 00:00:00 00:00:00 [facility] 350.1.13.10 it y of [place] 4.2.7.2.686 Pillo as Professio [phone] Nm dicdc nal [address] [place] [address] Office Building One 2019-11-06 2019-11-06 Orders Doctor FUNK 1.2.840.114 [id number] 03 00:00:00 00:00:00 Only Unassigned, TOY 350.1.13.10 [place] [facility] 4.2.7.2.686 [phone] 009 2019-11-06 2019-11-06 Orders Doctor FUNK 1.2.840.114 [id number] 03 Univers 00:00:00 00:00:00 Only Unassigned, TOY 350.1.13.10 ity of [place] [facility] 4.2.7.2.686 Pillo as [phone] [address] 2019-10-24 2019-10-24 Orders Doctor GOOD 1.2.840.114 [id number] 00:00:00 00:00:00 Only Unassigned, TOY 350.1.13.10 [place] [facility] 4.2.7.2.686 [phone] [facility] 2019-10-24 2019-10-24 Orders Doctor GOOD 1.2.840.114 [id number] 52 Univers 00:00:00 00:00:00 Only Unassigned, TOY 350.1.13.10 ity of [place] [facility] 4.2.7.2.686 Pillo as [phone] [address] 2019-10-09 2019-10-09 Orders Doctor GOOD 1.2.840.114 [id number] 17 Univers 00:00:00 00:00:00 Only Unassigned, TYO 350.1.13.10 ity of [place] [facility] 4.2.7.2.686 Pillo as [phone] [address] 2019-10-09 2019-10-09 Orders Doctor GOOD 1.2.840.114 [id number] 17 00:00:00 00:00:00 Only Unassigned, TOY 350.1.13.10 [place] [facility] 4.2.7.2.686 [phone] 009 2019-06-19 2019-06-[address] [facility] 1.2.840.114 [id number] 20 Univers 00:00:00 00:00:00 [facility] 350.1.13.10 it y of [place] 4.2.7.2.686 Pillo as Professio [phone] [address] Office Building One 2019-06-19 2019-06-19 [facility] 1.2.840.114 [id number] 20 00:00:00 00:00:00 [facility] 350.1.13.10 [place] 4.2.7.2.686 Professio [phone] [place] [address] Office Building One 2019-06-14 2019-06-14 Nurse GOOD Leblanc 1.2.840.114 [id number] Univers 00:00:00 00:00:00 Triage Elizabeth TOY 350.1.13.10 it y of [facility]OSPITAL 4.2.7.2.686 Pillo as [phone] [address] 2019-06-14 2019-06-14 [facility] 1.2.840.114 [id number] 29 Univers 00:00:00 00:00:00 [facility] 350.1.13.10 it y of [place] 4.2.7.2.686 Pillo as Professio [phone] [address] Office Building One 2019-06-14 2019-06-14 GOOD Peralta 1.2.840.114 [id number] 00:00:00 00:00:00 Triage Elizabeth TOY 350.1.13.10 HOSPITAL 4.2.7.2.686 [phone] [facility] 2019-06-14 2019-06-14 [facility] 1.2.840.114 [id number] 29 00:00:00 00:00:00 [facility] 350.1.13.10 [place] 4.2.7.2.686 Professio [phone] [place] [address] Office Building One 2019-06-11 2019-06-11 [facility] 1.2.840.114 [id number] 17 Univers 00:00:00 00:00:00 [facility] 350.1.13.10 it y of [place] 4.2.7.2.686 Pillo as Professio [phone] [address] Office Building One 2019-06-11 2019-06-11 [facility] 1.2.840.114 [id number] 17 00:00:00 00:00:00 [facility] 350.1.13.10 [place] 4.2.7.2.686 Professio [phone] nal [facility] Office Building One 2019-06-03 2019-06-03 [facility] 1.2.811.150 [id number] Univers 11:15:00 23:59:00 Encounter Anu Durbin 350.1.13.10 ity of [place] [phone] [facility] [address] 2019-06-03 2019-06-03 [facility] 1.2.047.918 [id number] 11:15:00 23:59:00 Encounter Anu Durbin 350.1.13.10 [place] 4.2.7.2.686 [place] [phone] [facility] 2019-06-03 2019-06-03 Office [facility] 1.2.840.114 [id number] [facility] 10:13:51 10:45:51 Visit [facility] 350.1.13.10 i ty of [place] 4.2.7.2.686 Pillo as Professio [phone] Nm dical nal [address] [place] [address] Office [facility] One 2019-06-03 2019-06-03 Office [facility] 1.2.840.114 [id number] 10:13:51 10:45:51 Visit [facility] 350.1.13.10 [place] 4.2.7.2.686 Professio [phone] nal [address] [place] [address] 2019-06-03 2019-06-03 Orders Doctor GOOD 1.2.840.114 [id number] 62 Univers 00:00:00 00:00:00 Only Unassigned, TOY 350.1.13.10 ity of [place] [facility] 4.2.7.2.686 Pillo as [phone] [facility] [address] [place] 2019-06-03 2019-06-03 Orders Doctor GOOD 1.2.840.114 [id number] 62 00:00:00 00:00:00 Only Unassigned, TOY 350.1.13.10 [place] [facility] 4.2.7.2.686 [id number] 009 2019-06-02 2019-06-02 [facility] 1.2.629.585 [id number] Univers 00:00:00 00:00:00 [facility] 350.1.13.10 it y of [place] 4.2.7.2.686 Pillo as Professio [phone] [address] Office Building One 2019-06-02 2019-06-02 Telephone Louis PR[facility] 1.2.334.943 [id number] 00:00:00 00:00:00 [facility] 350.1.13.10 [place] 4.2.7.2.686 Professio [phone] [place] [address] Office Building One 2019-05-28 2019-05-[address] [facility] 1.2.840.[id number] [place] [address] 12:23:17 08:18:02 Visit [facility] 350.1.13.10 it y of [place] 4.2.7.2.686 Pillo as Professio [phone] [address] Office Building One 2019-05-28 2019-05-[address] [facility] 1.2.840.114 [id number] 12:23:17 08:18:02 Visit [facility] 350.1.13.10 [place] 4.2.7.2.686 Professio [phone] [place] [address] Office Building One 2019-05-29 2019-05-[address] [facility] 1.2.840.114 [id number] 06 Univers 00:00:00 00:00:00 [facility] 350.1.13.10 it y of [place] 4.2.7.2.686 Pillo as Professio [phone] [address] Office Building One 2019-05-29 2019-05-[address] [facility] 1.2.840.114 [id number] 06 00:00:00 00:00:00 [facility] 350.1.13.10 [place] 4.2.7.2.686 Professio [phone] [place] [address] Office Building One 2019-05-19 2019-05-[address] [facility] 1.2.171.296 [id number] Univers 00:00:00 00:00:00 [facility] 350.1.13.10 it y of [place] 4.2.7.2.686 Pillo as Professio [phone] [address] Office Building One 2019-05-15 2019-05-15 [facility] 1.2.840.114 [id number] 50 Univers 00:00:00 00:00:00 [facility] 350.1.13.10 it y of [place] 4.2.7.2.686 Pillo as Professio [phone] [address] One 2019-05-13 2019-05-13 [facility] 1.2.840.114 [id number] 58 Univers 00:00:00 00:00:00 [facility] 350.1.13.10 it y of [place] 4.2.7.2.686 Pillo as Professio [phone] [address] One Results Test Description Test Time Test Comments Results Result Comments Source POCT GLUCOSE (AUTOMATED) 2022-09-22 13:29:44 Test Item Value Reference Range Interpretation Comme nts POCT GLU (test code = 8314699262) 105 mg/dL 70-110 Lab Interpretation (test code = 14323-5) [facility]22-09-22 13:29:44 Test Item Value Reference Range Interpretation Comments POCT GLU (test code = 7127241682) 105 mg/dL 70-110 Lab Interpretation (test code = Normal 29925-4) [facility]
--- NOTE | 2023-04-23 10:28 | EDPHYS ---
Physician Documentation [facility] Name: Vinayak Street Age: 83 yrs Sex: Male : 1940 Arrival Date: 04/23/2023 Time: 09:46 Bed 9 Private MD: ED Physician Ryan Shabazz HPI: 04/23 10:58 This 83 yrs old Male presents to ER via Ambulatory with complaints of Dog Bite. sb4 10:58 The patient was bitten on the right antecubital area, by a dog, in an unprovoked sb4 manner, at a friend's house. Onset: The symptoms/episode began/occurred 2 day(s) ago. Animal information: The animal was reported to appear healthy. Animal's vaccinations are up to date. The animal is known and can be quarantined, Animal control has not been notified. Secondary to the bite the patient reports a puncture wound, that is superficial. Associated signs and symptoms: Pertinent positives: erythema at site, pain at site, Pertinent negatives: fever, fluctuance, loss of consciousness, motor deficit, numbness distal to wound, suspected foreign body. bit by neighbors hound dog, vaccinated, patient is on blood thinners. Historical: - Allergies: 09:58 adhesive; bp 09:58 Codeine; bp - PMHx: 09:58 Atrial Fib; CHF; COPD; Diabetes - NIDDM; bp - Immunization history:: Last tetanus immunization: > 10 years ago. - Social history:: Smoking status: Patient denies any tobacco usage or history of. ROS: 10:58 Constitutional: Negative for fever, chills, and weight loss. sb4 10:58 Skin: Positive for laceration(s), diffuse ecchymosis bilateral arms. 10:58 All other systems are negative. Exam: 10:58 Constitutional: This is a well developed, well nourished patient who is awake, alert, sb4 and in no acute distress. Head/Face: Normocephalic, atraumatic. 10:58 Skin: injury, bite(s), superficial, of the right antecubital area. 10:58 Neuro: Exam negative for acute changes, focal neuro deficits, motor deficits, sensory deficits. Vital Signs: 09:59 BP 123 / 87; Pulse 81; Resp 16; Temp 97.8; Pulse Ox 98% ; bp MDM: 10:03 Patient medically screened. sb4 10:58 Differential diagnosis: superficial laceration, tendon injury, vascular injury, rabies. sb4 Rabies Status: Rabies immunization is not indicated. Data reviewed: vital signs, nurses notes, and as a result, I will discharge patient. Counseling: I had a detailed discussion with the patient and/or guardian regarding: the historical points, exam findings, and any diagnostic results supporting the discharge/admit diagnosis, to return to the emergency department if symptoms worsen or persist or if there are any questions or concerns that arise at home. 04/23 10:26 Order name: Wound Care; Complete Time: 10:40 sb4 Administered Medications: 10:40 Drug: Boostrix Tdap IM 0.5 ml Route: IM; Site: right deltoid; ll1 11:58 Follow up: Response: No adverse reaction; RASS: Alert and Calm (0) ll1 Disposition: 13:17 Co-signature as Attending Physician, Ryan Shabazz MD I reviewed the patient's care rn provided by the Advanced Practice Provider and agree with the diagnosis and treatment plan. Disposition Summary: 04/23/23 10:27 Discharge Ordered Location: Home sb4 Condition: Stable sb4 Diagnosis - Bitten by dog sb4 Followup: sb4 - With: Luis Myers MD - When: As needed - Reason: Recheck today's complaints, Continuance of care, Re-evaluation by your physician Discharge Instructions: - Discharge Summary Sheet sb4 - Animal Bite, Adult, Syik-yv-Chxf sb4 Forms: - Medication Reconciliation Form sb4 - Thank You Letter sb4 - Antibiotic Education sb4 - Prescription Opioid Use sb4 - [email or web address] sb4 Prescriptions: - mupirocin 2 % Topical ointment - apply 1 application by TOPICAL route 2 times per day; 1 Applicator; Refills: 0, sb4 Product Selection Permitted - Augmentin 875-125 mg Oral Tablet - take 1 tablet by ORAL route every 12 hours for 10 days; 20 tablet; Refills: 0, sb4 Product Selection Permitted Signatures: Ryan Shabazz MD MD rn Peltier, Brian, RN RN bp Artemio Rodríguez RN RN ll1 Kimberlee Lazo PA-C PA-C sb4
--- NOTE | 2023-04-23 10:28 | ER ---
Nurse's Notes [facility] Name: Vinayak Street Age: 83 yrs Sex: Male : 1940 Arrival Date: 04/23/2023 Time: 09:46 Bed 9 Private MD: Diagnosis: Bitten by dog Presentation: 04/23 09:59 Chief complaint: Patient states: DOG BITE TO R MEDIAL AC BY NEIGHBOR'S DOG SUNDAY bp NIGHT. Coronavirus screen: At this time, the client does not indicate any symptoms associated with coronavirus-19. Ebola Screen: No symptoms or risks identified at this time. Initial Sepsis Screen: Does the patient meet any 2 criteria? No. Patient's initial sepsis screen is negative. Does the patient have a suspected source of infection? No. Patient's initial sepsis screen is negative. Risk Assessment: Do you want to hurt yourself or someone else? Patient reports no desire to harm self or others. Onset of symptoms is unknown. 09:59 Method Of Arrival: Ambulatory bp 09:59 Acuity: MARY ANNE 4 bp Triage Assessment: 09:59 Bite description: bite sustained to right antecubital area by a dog, animal bp information: vaccination(s) is current. General: Appears in no apparent distress. Behavior is calm, cooperative, appropriate for age. Pain: Complains of pain in right antecubital area. EENT: No deficits noted. Neuro: No deficits noted. Cardiovascular: No deficits noted. Respiratory: No deficits noted. GI: No signs and/or symptoms were reported involving the gastrointestinal system. : No signs and/or symptoms were reported regarding the genitourinary system. Derm: No deficits noted. Musculoskeletal: No deficits noted. Injury Description: Bite sustained to right antecubital area caused by a dog. Historical: - Allergies: 09:58 adhesive; bp 09:58 Codeine; bp - PMHx: 09:58 Atrial Fib; CHF; COPD; Diabetes - NIDDM; bp - Immunization history:: Last tetanus immunization: > 10 years ago. - Social history:: Smoking status: Patient denies any tobacco usage or history of. Screenin:18 [facility] ED Fall Risk Assessment (Adult) Impaired Gait Yes (1 pt) Mobility Assist ll1 Device Used Yes (1 pt) Score/Fall Risk Level 0 - 2 = Low Risk Oriented to surroundings, Maintained a safe environment, Educated pt \T\ family on fall prevention, incl call for assistance when getting out of bed, Hourly rounding (assess needs \T\ fall precautionary measures) done. Abuse screen: Denies threats or abuse. Nutritional screening: No deficits noted. Tuberculosis screening: No symptoms or risk factors identified. Assessment: 10:18 Reassessment: No changes from previously documented assessment. Patient and/or family ll1 updated on plan of care and expected duration. Pain level reassessed. Patient is alert, oriented x 3, equal unlabored respirations, skin warm/dry/pink. 10:50 Reassessment: No changes from previously documented assessment. Patient and/or family ll1 updated on plan of care and expected duration. Pain level reassessed. Patient is alert, oriented x 3, equal unlabored respirations, skin warm/dry/pink. 10:52 Derm: Skin is fragile, Skin is pink, warm \T\ dry. ll1 11:04 Reassessment: No changes from previously documented assessment. Dog bite reported to [facility] Marcin Delgado at [phone]. Dispatcher Anu notified. Will contact patient for further information. Vital Signs: 09:59 BP 123 / 87; Pulse 81; Resp 16; Temp 97.8; Pulse Ox 98% ; bp ED Course: 09:48 Patient arrived in ED. rg4 09:59 Arm band placed on. bp 10:00 Triage completed. bp 10:01 Kimberlee Lazo PA-C is PHCP. sb4 10:01 Ryan Shabazz MD is Attending Physician. sb4 10:18 Patient placed in an exam room, on a stretcher. ll1 10:18 Patient has correct armband on for positive identification. Bed in low position. Call ll1 light in reach. Cardiac monitoring not applicable on this patient. 10:27 Luis Myers MD is Referral Physician. sb4 10:29 Artemio Rodríguez RN is Primary Nurse. ll1 10:40 Wound care: to dog bite located on right antecubital area was cleaned with Hibiclens, ll1 dressed with Kerlix, non adherent dressing, Patient tolerated well. 10:52 Provided Education on: Wound care for dog bite. ll1 10:52 No provider procedures requiring assistance completed. Patient did not have IV access ll1 during this emergency room visit. Administered Medications: 10:40 Drug: Boostrix Tdap IM 0.5 ml Route: IM; Site: right deltoid; ll1 11:58 Follow up: Response: No adverse reaction; RASS: Alert and Calm (0) ll1 Medication: 11:18 Vaccine Information Statement (VIS) provided today. Questions and/or concerns ll1 addressed. VIS edition date: May 20, 2021. Outcome: 10:27 Discharge ordered by . sb4 10:52 Patient left the ED. ll1 10:52 Discharged to home ambulatory. ll1 10:52 Condition: stable 10:52 Discharge instructions given to patient, Instructed on discharge instructions, follow up and referral plans. medication usage, wound care, Demonstrated understanding of instructions, follow-up care, medications, wound care, Prescriptions given X 2. Signatures: Jina Kerns rg4 Tacos Luis, RN RN Artemio Calles RN RN ll1 Kimberlee Lazo, MIROSLAVA PAClaude sb4
[2023-04-23] MEDS ORDERED: TDAP (DIPHTH,PERTUSS(ACELL),TET VAC) 0.5 ML VIAL IMVAC ONE (10:39)
[2023-04-23 11:19] VITALS: BP 123/87; TEMP 97.8; O2SAT 98
== END 2023-04-23 10:52 | disposition home or self-care (01) ==
LOC: ER 09:46
DX: S40.872A Other superficial bite of left upper arm, initial encounter (principal); S40.871A Other superficial bite of right upper arm, initial encounter; Z88.5 Allergy status to narcotic agent; Z91.048 Other nonmedicinal substance allergy status
CPT/HCPCS: 96372; 99284